=== PATIENT | male | born 2000 | race Caucasian/White ===

== ENCOUNTER → 2020-01-06 | Outpatient (CLI) | payer MEDICAID | LOC: M LAB 07:47 | PROVIDERS: ATTEND Nurse Practitioner Pediatrics | DX: R56.9 Unspecified convulsions (principal) ==

== ENCOUNTER 2020-04-14 15:27 | Emergency (ER) | payer MEDICAID ==
[2020-04-14 18:58] VITALS: BP 135/67
== END 2020-04-14 18:59 | disposition home or self-care (01) ==
LOC: M ED 15:27
DX: F43.0 Acute stress reaction (principal)

== ENCOUNTER 2020-05-31 02:30 | Emergency (ER) | payer MEDICAID ==
[~2020-05-31] VITALS: Ht 190.5 cm; Wt 122.7 kg
--- OUTSIDE RECORDS SUMMARY | 2020-05-31 02:34 | CCD ---
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 TABLETMIRALAX ORAL POWDERDIFFERIN 0.1 % EXTERNAL CREAMAllergies:BIAXIN (Critical)* TOPOMAX (Critical)* RAGWEED (Critical)* SEROQUEL (Critical)* TETANUS TOXIN (Severe)* HAYFEVER (Moderate) Name Value Range Interpretation Code Description Data Marla rce(s) Supporting Document(s) ID Date Data Source [id number] 09/09/2019 01:07:30 PM EDT [facility] Measurements & CalculationsHeight: 76 inches (6 ft. 4 in.) 193.04 cm Weight: 270 pounds 122.73 kg Body Mass Index (BMI): 32.98BMI Interpretation: ObeseBody Surface Area (BSA): 2.52Weight Management Education Done (Nutrition/Physical Activity)Vital SignsTemperature: 97.4F tympanic Pulse Rate: 74 beats/minuteRespiratory Rate: 18 respirations/minuteBlood Pressure: 116/80 left arm sitting automaticO2 Saturation: 97% room airVital Signs performed by: Luli Phipps LPN, September 09, 2019 1:31 PMInitial Intake Information From: patientRoom #: 1Infectious Disease / Travel ScreeningRecent travel for you or any close contacts? NoHave you had any close contact with anyone diagnosed with or under investigation for COVID-19 (coronavirus)? NoFever? NoRespiratory symptoms: cough, cold, congestion, shortness of breath, difficulty breathing? NoLoss of smell? NoLoss of taste? NoDetails: moved from [place] 06/30/2019Smoking, Tobacco, Vaping or Smoke Exposure StatusSmoke Status: never smokerTobacco Use: NoDo you vape? NoPassive Smoke Exposure: NoHealthcare HistorySince your last office visit...Have you been admitted to the hospital? NoHave you been to an emergency room (ER) or urgent care clinic? NoHave you seen another healthcare provider? Yes [facility]? NoIntake performed by: Luli Phipps LPN, September 09, 2019 1:13 PMRate Your HealthIn general, would you say your health is? Very GoodPain AssessmentAre you currently having any pain which... You would like your provider to address? No Affects your activity level? NoDepression Screening - PHQ-2Over the last two weeks, have you... Had little interest or pleasure in doing things? Not at all Been feeling down, depressed, or hopeless? Not at all PHQ-2 Score: 0Anxiety Screening - MACARIO-2Over the last two weeks, have you been... Feeling nervous, anxious, or on edge? Not at all Unable to stop or control worrying? Not at all MACARIO-2 Score: 0PRAPARE Sociodemographic Characteristics Race: White Ethnicity: Not or Preferred Language: EnglishFamily and Home Address: [address] [place] [address] What is your housing situation today? I have housing Are you worried about losing your housing? NoMoney and Resources What is the highest level of school that you have finished? high school graduate Employed? Yes Your current work situation? [employer] Insurance: MedicaidIn the past year, have you or any family members you live with been unable to get any of the following when it was really needed? Denies Insecurity: food, utilities, clothing, attendant child activity, phone, legal services, otherIn the past year, have you had trouble affording costs associated with health insurance (such as deductibles, co-payments, etc.)? NoSocial and Emotional Health How often do you see or talk to people that you care about and feel close to? More than 5 times a week How stressed are you? Not at allAdditional Optional Domains In the past 3 months, have you spent more than 2 nights in a row in a senior living, chcf, senior care center or juvenile correctional facility? No Has lack of transportation kept you from medical appointments or from getting your medications? NoIn the past year, have you had trouble getting any of the following when it was really needed (check all that apply)?noneIn the past year, have you had trouble paying the costs associated with health care or medicine (such as co-payments, costs for services, prices of medicines)? NoHow confident are you that you can control and manage most of your health problems? Not very confident Are you a refugee? No (Country of origin: [facility]) Do you feel physically and emotionally safe where you live? Yes In the past year, have you been afraid of a partner, ex-partner? I have not had a partner in the past yearScreening, Brief Intervention, & Referral to Treatment (SBIRT)Pre-Screening Questions How many times have you have 5 or more drinks in a day? 0How many times have you used an illegal drug or used a prescription medication for a non- medical reason? 0Performed by: Luli Phipps LPN, September 09, 2019 1:16 PMPatient History Medical History:autismgallstonesconstipationacneseizures-last in 2011Surgical History:Family History:adopted-unknown family historySocial/Personal History: Chief Complaintestablish careHistory of Present Illness (HPI)18yo male here to establish care, accompanied by his father Avila and [facility] support aid Caleb.Pt lives at [facility] in [place]. Pt's dad and support aid Caleb states no concerns at this time. Pt moved to [place] from [place] in 06/2019. Father requests [facility] for dandruff.Follows with Tomy Silva at [facility] for behavioral health. Had initial intake on 09/04/2019, states that office is holding off 3-4 months for physical appointment. At this time remains established with [facility], neuro monitors Lamictal levels approximately annually. Has an appt upcoming in 12/2019, family is considering switching to local neuro in [place] versus adult [facility]. HPI performed by: Marco A BERMUDEZ, September 09, 2019 1:36 PMTransitions of Care InboundProblem ReviewProblem List was reviewed and/or updated during this visit.Medication Reconciliation & ReviewMedication List was reviewed and/or updated during this visit, including review of any myfq-xbm-diqbdsq medications, herbal therapies, and/or supplements.Allergy ReviewAllergy List was reviewed and/or updated during this visit.Adult Preventive CareProvider Calculated and Reviewed all Clinical P rotocols for patient today. Labs/Meds/Other Counseling-Nutrition and Physical Activity:BMI Interpretation: Obese (09/09/2019) Counseling: Done (09/09/2019) Physical Activity: Done (09/09/2019)Review of Systems General: Denies loss of appetite, chills, dizziness, fatigue, fever, headache, feeling ill. Eyes: Denies blurring of vision, double vision, eye pain. Ears/Nose/Throat: Denies earache, decreased hearing, nasal congestion, nosebleeds, sore throat, tooth pain, swollen glands. Cardiovascular: Denies chest pain, palpitations, feeling faint, peripheral edema, elevated blood pressure. Respiratory: Denies cough, difficulty breathing, shortness of breath, wheezing. Gastrointestinal: Denies nausea, vomiting, diarrhea, pain or discomfort, abdominal pain. constipation managed by miralaxMusculoskeletal: Denies joint pain, joint swelling, body aches. Skin: dandruff and facial acne, managed by current topicalsNeurologic: Denies weakness, numbness/tingling, feeling faint, tremors. no seizures since 2011Psychiatric: Denies depression, anxiety, hallucinations, paranoia, hearing voices. occasional property damage at the [facility] house, no physicality towards himself or othersPhysical ExamGeneral Appearance: well nourished, well hydrated, no acute distressEyes, External: conjunctivae and lids normal, EOMIExternal Ears: normal, no lesions or deformitiesHearing: grossly intactOtoscopy: canals clear, tympanic membranes intact, no fluid, light reflex intact bilaterallyExternal Nose: normal, no lesions or deformitiesNasal: mucosa, septum, and turbinates normal, nares patentLips/Teeth/Gums: normal dentition, no gingival inflammation, no labial lesionsPharynx: tongue normal, posterior pharynx without erythema or exudate, no thrush/aphthous ulcerNeck: supple, no masses, trachea midline, full range of motion of neckThyroid: no nodules, masses, tenderness, or enlargementRespiratory, Auscultation: clear to auscultation bilaterally; no rales, rhonchi, or wheezesRespiratory, Effort: no intercostal retractions or use of accessory musclesCardiovascular, Auscultation: S1, S2 audible; no murmur, rub, or gallop; RRRPeripheral Circulation: no clubbing, cyanosis, edema, or varicositiesAbdomen: soft, non-tender, no masses, bowel sounds normalGait & Station: normalSkin, Inspection: slight scalf dandruff and facial pustular acneOrientation: oriented to personMood & Affect: no depression, anxiety, or agitation, poor eye contact, playing electronic game throughout visit, history obtained from father primarilyJudgment & Insight: poorCare Management Plan Transitions of CareInboundRate Your HealthIn general, would you say your health is? Very GoodAssessment & Plan Problems:Added: Encounter for general adult medical examination with abnormal findings (ICD-V70.0) (IXC36-L36.01) Assess ment: Instructions: Recommend annual medical appointments. Recommend routine dental and vision care. Recommend influenza vaccines annually. 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 Call when refills are needed.Chronic constipation (ICD-564.09) (XNG22-K55.09) Assessment: Instructions: Continue current Miralax twice to three times daily as needed. Advised patient to let staff know when he had BMs so they can track. No indication for change to regimen or to order imaging at this time. Staff to make an appt for decreased appetite, lack of BMs, abdominal pain.Autistic disorder (ICD-299.00) (WVQ01-W99.0) Assessment: Instructions: Continue per [facility] behavioral health. Release of information form(s) to obtain medical records from your providers(s) has been signed in the office today. Call that office for refills of behavioral health medications.Epilepsy, unspecified, not intractable, without status epilepticus (IRB31-D22.909) Assessment: Instructions: Stable per father since 2011. Continue with [facility] as scheduled, consider staying with [facility] as he is well established with that office and stable. We can place a new referral in the future if you wish as well, please just let us know.Patient Instructions/Care Plan: Encounter for general adult medical examination with abnormal findings: Recommend annual medical appointments. Recommend routine dental and vision care. Recommend influenza vaccines annually. Unable to receive tetanus boosters due to allergy; reviewed risks and indications for evaluation of lacerations and punctures.Consider routine panel of fasting labs in the next few years to screen, given no known family history.Pityriasis capitis: Continue Selsun Blue shampoo, refills sent today.Acne: Continue current topical regimen. Call when refills are needed.Chronic constipation: Continue current Miralax twice to three times daily as needed. Advised patient to let staff know when he had BMs so they can track. No indication for change to regimen or to order imaging at this time. Staff to make an appt for decreased appetite, lack of BMs, abdominal pain.Autistic disorder: Continue per [facility] behavioral health. Release of information form(s) to obtain medical records from your providers(s) has been signed in the office today. Call that office for refills of behavioral health medications.Epilepsy- unspecified- not intractable- without status epilepticus: Stable per father since 2011. Continue with [facility] as scheduled, consider staying with [facility] as he is well established with that office and stable. We can place a new referral in the future if you wish as well, please just let us know. Plan developed in collaboration with patient and/or familyMedications:SELSUN BLUE DRY SCALP 1 % EXTERNAL SHAMPOOZOLOFT 100 MG ORAL TABLETINDERAL LA 60 MG ORAL CAPSULE EXTENDED RELEASE 24 HOURBENZOYL PEROXIDE 2.5 % EXTERNAL GELLAMICTAL XR 100 MG ORAL TABLET EXTENDED RELEASE 24 HOURHYDROXYZINE HCL 50 MG ORAL TABLETMIRALAX ORAL POWDERDIFFERIN 0.1 % EXTERNAL CREAMMedication Changes:Added: DIFFERIN 0.1 % EXTERNAL CREAM-thin layer to face QHSMIRALAX ORAL POWDER-17 grams in 8 oz water up to TIDHYDROXYZINE HCL 50 MG ORAL TABLET-1 tab po QHSLAMICTAL XR 100 MG ORAL TABLET EXTENDED RELEASE 24 HOUR-3 tabs BIDBENZOYL PEROXIDE 2.5 % EXTERNAL GEL-apply generously to cheeks and chin bidINDERAL LA 60 MG ORAL CAPSULE EXTENDED RELEASE 24 HOUR-1 tab po TIDZOLOFT 100 MG ORAL TABLET- 1.5 tab po QAMNew Prescription:SELSUN BLUE DRY SCALP 1 % EXTERNAL SHAMPOO-Apply to scalp daily with bathing, rinse after application Qty: 1[Container] Refills: 11 Method: ElectronicAllergies:BIAXIN (Critical)* TOPOMAX (Critical)* RAGWEED (Critical)* SEROQUEL (Critical)* TETANUS TOXIN (Severe)* HAYFEVER (Moderate)Orders:Preventive, New, (18-39) [[id number]] Follow-Up Return to clinic: in 1 year for preventive care visitAdditional Follow-Up: annual PECVS: Other form of [facility] given to patientMedications:SELSUN BLUE DRY SCALP 1 % EXTERNAL SHAMPOO (PYRITHIONE ZINC) Apply to scalp daily with bathing, rinse after application #1[Container] x 11 Route:EXTERNAL Entered and Authorized by: Marco A BERMUDEZ Method used: Electronically to [facility]* (retail) [address] [place] [address] Note to Pharmacy: Route: EXTERNAL; RxID: [id number] signed by Marco A BERMUDEZ on 09/09/2019 at 2:13 PM Name Value Range Interpretation Code Description Data Marla rce(s) Supporting Document(s) Procedure
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
[2020-05-31] MEDS ORDERED: IBUPROFEN 400 MG TAB PO ONE (05:30)
[2020-05-31 06:00] VITALS: BP 131/82
== END 2020-05-31 06:16 | disposition home or self-care (01) ==
LOC: M ED 02:30
DX: M54.5 Low back pain (principal); F79 Unspecified intellectual disabilities; Z88.1 Allergy status to other antibiotic agents; Z88.7 Allergy status to serum and vaccine; Z88.8 Allergy status to other drugs, medicaments and biological substances; J30.89 Other allergic rhinitis

== ENCOUNTER → 2020-06-02 | Outpatient (REF) | payer MEDICAID ==
[~2020-06-02] MED LIST: AMOX875T2 PO; APAP325T4 PO; AUGM875T28 PO; DIFF0.1G3 TOP; HM I1TAB PO; HYDR50TA70 PO; INDE60CA4 PO; LAMO100T80 PO; MIRA3350 PO; OXYC1TAB23 PO; PANT40TA29 PO; PROP60TA18 PO; SERT-138 PO; SERT50TA29 PO; VALI5TAB PO; [UNRECOGNIZED DRUG - CODE] TOP; [UNRECOGNIZED DRUG - CODE] TOP
[2020-06-02 16:57] LABS: BASO % 0.1 % (0.0-1.0); EOS # 0.1 10^3/uL (0.0-0.5); EOS % 0.5 % (0.0-3.0); HEMATOCRIT 47.8 % (42.0-52.0); HEMOGLOBIN 15.7 g/dl (13.5-17.5); LYMPH # 1.6 10^3/uL (1.5-5.0); LYMPH % 9.5 % (24.0-44.0); MEAN CORPUSCULAR HEMOGLOBIN 28.4 pg (27.0-33.0); MEAN CORPUSCULAR HGB CONC 32.8 g/dl (32.0-36.5); MEAN CORPUSCULAR VOLUME 86.6 fl (80.0-96.0); MONO # 2.1 10^3/uL (0.0-0.8); MONO % 12.3 % (0.0-5.0); NEUTROPHILS # 12.8 10^3/uL (1.5-8.5); NEUTROPHILS % 76.9 % (36.0-66.0); PLATELET COUNT, AUTOMATED 286 10^3/uL (150-450); RED BLOOD COUNT 5.52 10^6/uL (4.30-6.10); WHITE BLOOD COUNT 16.7 10^3/uL (4.0-10.0)
[2020-06-02 17:28] LABS: ALBUMIN 3.8 GM/DL (3.2-5.2); ALT/SGPT 159 U/L (12-78); BILIRUBIN,TOTAL 9.9 MG/DL (0.2-1.0); BLOOD UREA NITROGEN 16 MG/DL (7-18); CARBON DIOXIDE LEVEL 28 MEQ/L (21-32); CHLORIDE LEVEL 101 MEQ/L (98-107); CREATININE FOR GFR 1.05 MG/DL (0.70-1.30); GLOMERULAR FILTRATION RATE > 60.0 (>60); GLUCOSE, FASTING 76 MG/DL (70-100); SODIUM LEVEL 137 MEQ/L (136-145); TOTAL PROTEIN 7.3 GM/DL (6.4-8.2)
== END ==
LOC: M LAB REF 15:37
PROVIDERS: ATTEND Family Medicine Addiction Medicine
DX: R17 Unspecified jaundice (principal)

== ENCOUNTER 2020-06-03 10:43 | Inpatient (IN) | payer MEDICAID ==
[~2020-06-03] VITALS: Ht 188 cm; Wt 128.3 kg
[2020-06-03] MEDS ORDERED: NS 1,000 ML IV ONE (12:15)
[2020-06-03] MEDS ORDERED: KETOROLAC 30 MG/ML 1ML VIAL IV ONE (12:15)
[2020-06-03 12:16] LABS: BASO % 0.2 % (0.0-1.0); EOS # 0.1 10^3/uL (0.0-0.5); EOS % 0.8 % (0.0-3.0); HEMATOCRIT 41.4 % (42.0-52.0); HEMOGLOBIN 14.2 g/dl (13.5-17.5); LYMPH # 1.3 10^3/uL (1.5-5.0); MEAN CORPUSCULAR HEMOGLOBIN 29.3 pg (27.0-33.0); MEAN CORPUSCULAR HGB CONC 34.3 g/dl (32.0-36.5); MEAN CORPUSCULAR VOLUME 85.4 fl (80.0-96.0); MONO # 2.1 10^3/uL (0.0-0.8); NEUTROPHILS # 12.2 10^3/uL (1.5-8.5); NEUTROPHILS % 76.9 % (36.0-66.0); PLATELET COUNT, AUTOMATED 285 10^3/uL (150-450); RED BLOOD COUNT 4.85 10^6/uL (4.30-6.10); WHITE BLOOD COUNT 15.9 10^3/uL (4.0-10.0)
[2020-06-03] MEDS ORDERED: HYDR50TA70 PO (12:32)
[2020-06-03] MEDS ORDERED: MIRA3350 PO (12:32)
[2020-06-03] MEDS ORDERED: LAMO100T80 PO (12:32)
[2020-06-03] MEDS ORDERED: DIFF0.1G3 TOP (12:32)
[2020-06-03] MEDS ORDERED: INDE60CA4 PO (12:32)
[2020-06-03] MEDS ORDERED: SERT-138 PO (12:33)
--- NOTE | 2020-06-03 12:40 | REP ---
INDICATION: ruq pain yellowing of skin. COMPARISON: None. TECHNIQUE: Real-time sonographic evaluation of right upper quadrant performed. FINDINGS: Gallstones fill the gallbladder lumen. There is no evidence of gallbladder wall thickening.. The common bile duct is mildly dilated at 8 mm. There appears to be mild diffuse intrahepatic biliary dilatation. The liver demonstrates homogeneous echotexture with no gross mass. Pancreas cannot be visualized due to overlying bowel gas. The right kidney demonstrates no hydronephrosis, with a normal size of 12.7 cm in length. No free fluid is seen. IMPRESSION: Multiple gallstones fill the lumen of the gallbladder. No gallbladder wall thickening or free fluid. Mild intrahepatic and extrahepatic biliary dilatation. Consider MRCP. <Electronically signed by Hima Jasmine > 06/03/20 1038
[2020-06-03] MEDS ORDERED: VALI5TAB PO (12:41)
[2020-06-03 12:48] LABS: ALBUMIN 3.2 GM/DL (3.2-5.2); ALT/SGPT 113 U/L (12-78); BILIRUBIN,TOTAL 4.7 MG/DL (0.2-1.0); BLOOD UREA NITROGEN 13 MG/DL (7-18); CALCIUM LEVEL 8.5 MG/DL (8.5-10.1); CARBON DIOXIDE LEVEL 26 MEQ/L (21-32); CHLORIDE LEVEL 101 MEQ/L (98-107); CREATININE FOR GFR 0.83 MG/DL (0.70-1.30); GLOMERULAR FILTRATION RATE > 60.0 (>60); GLUCOSE, FASTING 96 MG/DL (70-100); LIPASE 341 U/L (73-393); POTASSIUM SERUM 3.9 MEQ/L (3.5-5.1); SODIUM LEVEL 135 MEQ/L (136-145); TOTAL PROTEIN 6.9 GM/DL (6.4-8.2)
[2020-06-03] MEDS ORDERED: HM I1TAB PO (14:05)
[2020-06-03] MEDS ORDERED: APAP325T4 PO (14:05)
[2020-06-03] MEDS ORDERED: PROP60TA18 PO (14:05)
[2020-06-03] MEDS ORDERED: SERT50TA29 PO (14:05)
[2020-06-03] MEDS ORDERED: [UNRECOGNIZED DRUG - CODE] TOP (14:05)
[2020-06-03] MEDS ORDERED: [UNRECOGNIZED DRUG - CODE] TOP (14:06)
[2020-06-03] MEDS ORDERED: PIPERACILLIN/TAZOBACTAM SOD 3.375 GM in D5W MINI-BAG PLUS 50 ML IV ONE (15:00)
--- NOTE | 2020-06-03 15:36 | HPEPDOC ---
[facility] Medical History & Physical Date of Admission Jun 03, 2020 Date of Service: Jun 03, 2020 History and Physical CHIEF COMPLAINT: abdominal pain HISTORY OF PRESENT ILLNESS: 19 year old male with developmental delay/autism returns to ED for back pain and right upper quadrant abdominal pain. Patient was seen in ED a few days ago for the same, and has been failing outpatient treatment with oral analgesics. He denies chest pain, shortness of breath, headaches, N/V/D. PAST MEDICAL HISTORY: #seizures ALLERGIES: Please see below. REVIEW OF SYSTEMS: Negative except as per HPI. HOME MEDICATIONS: Please see below. PHYSICAL EXAMINATION: VITAL SIGNS: see below General: NAD, lying comfortably in bed HEENT: NC/AT Lungs: CTA B/L Heart: +S1S2, RRR Abd: soft, tender, +BS Ext: no edema LABORATORY DATA: See below. MICROBIOLOGY: Please see below. A/P: 19 year old male resident of [facility] for cholecystitis/choledocholithiasis #gallstone disease - GI c/s pending - discussed with GI assistance appreciated - MRI pending - history of metal shavings? - orbital scan pending as per MRI screen process - clear liquids - NPO after midnight for possible ERCP tomorrow - hyperbilirubinemia improving #+COVID-19 - asymptomatic - infection control precautions #seizures - continue home medications #DVT prophylaxis - mechanical Vital Signs Vital Signs Date Time Temp Pulse Resp B/P (MAP) Pulse Ox O2 Delivery O2 Flow Rate FiO2 06/03/20 14:35 98.9 96 16 132/71 (91) 99 Room Air Laboratory Data Labs 24H Laboratory Tests 2 06/03/20 11:25: Immature Granulocyte % (Auto) 1.1, Neutrophils (%) (Auto) 76.9H, Lymphocytes (%) (Auto) 8.0L, Monocytes (%) (Auto) 13.0H, Eosinophils (%) (Auto) 0.8, Basophils (%) (Auto) 0.2, Neutrophils # (Auto) 12.2H, Lymphocytes # (Auto) 1.3L, Monocytes # (Auto) 2.1H, Eosinophils # (Auto) 0.1, Basophils # (Auto) 0.0, Nucleated Red Blood Cells % (auto) 0.0, Anion Gap 8, Glomerular Filtration Rate > 60.0, Calcium Level 8.5, Total Bilirubin 4.7#H, Direct Bilirubin 3.0H, Aspartate Amino Transf (AST/SGOT) 56H, Alanine Aminotransferase (ALT/SGPT) 113H, Alkaline Phosphatase 160H, Total Protein 6.9, Albumin 3.2, Albumin/Globulin Ratio 0.9, Lipase 341 06/03/20 11:59: Lactic Acid Level 0.9 CBC/BMP Laboratory Tests 06/03/20 11:25 Microbiology Microbiology 06/03/20 Blood Culture, Received Pending Home Medications Scheduled Benzoyl Peroxide (On-The-Spot) 21 Gm Cream..g., 1 APLCT TOP BID APPLY TO CHIN AND CHEEKS Hydroxyzine HCl (Hydroxyzine HCl) 50 Mg Tablet, 50 MG PO QPM Lamotrigine (Lamotrigine) 100 Mg Tablet, 300 MG PO BID Polyethylene Glycol 3350 (Miralax) 119 Gm Powder, 17 GM PO DAILY dilute in 8 ounces of water or juice Propranolol HCl (Propranolol HCl) 60 Mg Tablet, 60 MG PO TID Selenium Sulfide/Aloe Vera (Selsun Blue Moist 1% Shampoo) 207 Ml Shampoo, 1 APLCT TOP DAILY Sertraline HCl (Sertraline HCl) 50 Mg Tablet, 75 MG PO DAILY Scheduled PRN Acetaminophen (Acetaminophen) 325 Mg Tablet, 650 MG PO Q6H PRN for BACK PAIN Ibuprofen (Ibuprofen Ib) 200 Mg Tablet, 400 MG PO TID PRN for PAIN Allergies Coded Allergies: Common Ragweed (Verified Allergy, Mild, 05/31/20) ENVIROMENTAL (Verified Allergy, Mild, 05/31/20) POLLEN (Verified Allergy, Mild, 05/31/20) clarithromycin (Verified Allergy, Mild, 05/31/20) quetiapine (Verified Allergy, Mild, 05/31/20) tetanus toxoid, adsorbed (Verified Allergy, Mild, 05/31/20) topiramate (Verified Allergy, Mild, 05/31/20) A-FIB/CHADSVASC A-FIB History Current/History of A-Fib/PAF?: LIZETH Sorensen MD Jun 03, 2020 15:36
--- OUTSIDE RECORDS SUMMARY | 2020-06-03 15:56 | CCD ---
Author Organization Unknown Address [address] [place] [address] Phone [phone] Care Team Providers Care Talent Acquisition Program Manager Name Role Phone [facility] 229 [phone] Allergies Code Code System Name Reaction Severity Status Onset 20360608 RxNorm Biaxin Active 09/09/2019 Hayfever Active 09/09/2019 Ragweed Active 09/09/2019 17939 RxNorm Seroquel Active 09/09/2019 Tetanus and Diphtheria Toxoids Active [id number] RxNorm Topamax Active Notes: TOPOMAX - Reaction: unable to re gulate body temp | TETANUS TOXIN - Reaction: swollen leg and red Medications Name Status Start Date Stop Date adapalene Active Not available benzoyl peroxide 2.5 % lotion Active No t available hydroxyzine HCl 50 mg tablet Take 1 tablet 4 times a day by oral route. Active Not available Inderal LA 60 mg capsule,extended releas e Take 1 capsule every day by oral route. Active Not available lamotrigine 100 mg tablet Take 1 tablet every day by oral route. Active Not available Miralax Active Not available sertraline 100 mg tablet Take 1 tablet every day by oral route. Active Not available Problems Name Status Onset Date Source Autistic Disorder Active 09/09/2019 History Chronic Constipation Active 09/09/2019 History Acne Active 09/09/2019 History Procedure by Method Active 09/09/2019 History Disorder of Skin of Head Active 09/09/2019 History Neurological Finding Active 09/09/2019 History Impacted Tooth Active 01/28/2020 History Low Back Pain Active 06/02/2020 Procedures None recorded. Results Lab Results None recorded. Past Encounters 06/02/2020 Jaundice; Chronic Constipation; Low Back Pain Garfield Julian MD: [id number] [facility], [facility] [address], [place] [address], Ph. Social History Tobacco Smoking Status Never Smoker Vaccine List None recorded. Plan of Care Reminders Provider Appointments None recorded. Lab None recorded. Referral None recorded. Procedures None recorded. Surgeries None recorded. Imaging None recorded. Vitals 06/02/2020 10:20AM ESTABLISHED [id number] Height Weight BMI Blood Pressure 76 in 235 lbs 28.6 kg/m2 123/78 mm[Hg] 09/09/2019 Height Weight BMI Blood Pressure 76 in 270 lbs 32.98 kg/m2 116/80 mm[Hg]"
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
--- NOTE | 2020-06-03 17:42 | REP ---
INDICATION: hx of metal shavings in eye; MRI clearance. COMPARISON: None. TECHNIQUE: PA and lateral views of the calvarium. FINDINGS: The bony calvarium is intact. No intraorbital or periorbital opaque foreign body is seen. Visualized paranasal sinuses are clear. IMPRESSION: No evidence of opaque foreign body. No contraindication to MR scanning seen. <Electronically signed by William Jaeger > 06/03/20 [id number]
[2020-06-03] MEDS: PIPERACILLIN/TAZOBACTAM SOD 4.5 GM in D5W MINI-BAG PLUS 50 ML IV SCH (20:20)
[2020-06-03] MEDS: KETOROLAC 30 MG/ML 1ML VIAL IV PRN (20:21)
[2020-06-03] MEDS ORDERED: hydrOXYzine 50 MG TAB PO SCH (21:00)
[2020-06-03 23:49] VITALS: BP 137/80
[2020-06-04] MEDS: PROPRANOLOL 20 MG TAB PO SCH ×3 (00:33→16:29)
[2020-06-04] MEDS: lamoTRIgine 100MG TAB PO SCH ×2 (00:34→09:15)
[2020-06-04] MEDS: PIPERACILLIN/TAZOBACTAM SOD 4.5 GM in D5W MINI-BAG PLUS 50 ML IV SCH ×3 (00:34→12:27)
[2020-06-04] MEDS: ACETAMINOPHEN TAB 650MG DOSE (2X325MG) PO PRN ×2 (00:35→09:20)
[2020-06-04 05:18] VITALS: BP 135/69
[2020-06-04] MEDS: KETOROLAC 30 MG/ML 1ML VIAL IV PRN ×2 (05:33→12:53)
[2020-06-04 08:31] LABS: BASO % 0.2 % (0.0-1.0); EOS # 0.2 10^3/uL (0.0-0.5); EOS % 1.8 % (0.0-3.0); HEMATOCRIT 39.9 % (42.0-52.0); LYMPH # 1.4 10^3/uL (1.5-5.0); LYMPH % 10.7 % (24.0-44.0); MEAN CORPUSCULAR HEMOGLOBIN 28.4 pg (27.0-33.0); MEAN CORPUSCULAR HGB CONC 32.6 g/dl (32.0-36.5); MEAN CORPUSCULAR VOLUME 87.3 fl (80.0-96.0); MONO # 1.7 10^3/uL (0.0-0.8); MONO % 12.9 % (0.0-5.0); NEUTROPHILS # 9.5 10^3/uL (1.5-8.5); NEUTROPHILS % 73.6 % (36.0-66.0); PLATELET COUNT, AUTOMATED 262 10^3/uL (150-450); RED BLOOD COUNT 4.57 10^6/uL (4.30-6.10); WHITE BLOOD COUNT 12.9 10^3/uL (4.0-10.0)
--- NOTE | 2020-06-04 08:52 | REP ---
INDICATION: gallstones, dialtion of ducts. Repeat dictation. Preliminary report is provided at the time of the exam by neto OVIEDO. COMPARISON: Right upper quadrant sonography from 03 June 2020.. TECHNIQUE: MRCP protocol. T2 weighted axial and coronal images are obtained. MRCP acquisition is performed in maximum intensity projection images are generated and reviewed. FINDINGS: There is a tiny sliver of right and left pleural fluid. There is minimal fluid in the pericolic gutters.. There is diffuse swelling and edema in and adjacent to the pancreas question pancreatitis. The gallbladder is filled with tiny gallstones. No intrahepatic ductal dilation is seen. The common bile duct does not appear to be dilated by MRCP images measuring 5 mm in greatest diameter. No focal liver lesion or splenic lesion is seen. The spleen is mildly enlarged measuring up to 16 cm in craniocaudal span. No filling defect is seen in the common bile duct. IMPRESSION: No evidence of biliary ductal dilation. Trace ascites and pleural effusions. Evidence of acute pancreatitis. No evidence of choledocholithiasis. The gallbladder however is filled with tiny calculi. It is not dilated. <Electronically signed by William Jaeger > 06/04/20 [id number]
[2020-06-04] MEDS ORDERED: SERTRALINE HCL 25 MG TABLET PO SCH (09:00)
[2020-06-04 09:04] LABS: ALBUMIN 2.9 GM/DL (3.2-5.2); ALT/SGPT 77 U/L (12-78); BILIRUBIN,TOTAL 2.7 MG/DL (0.2-1.0); BLOOD UREA NITROGEN 15 MG/DL (7-18); CALCIUM LEVEL 8.6 MG/DL (8.5-10.1); CARBON DIOXIDE LEVEL 29 MEQ/L (21-32); CHLORIDE LEVEL 103 MEQ/L (98-107); CREATININE FOR GFR 0.81 MG/DL (0.70-1.30); GLOMERULAR FILTRATION RATE > 60.0 (>60); GLUCOSE, FASTING 82 MG/DL (70-100); SODIUM LEVEL 140 MEQ/L (136-145); TOTAL PROTEIN 6.4 GM/DL (6.4-8.2)
--- NOTE | 2020-06-04 11:56 | DS.PDOC ---
Discharge Summary General Date of Admission Jun 03, 2020 at 15:33 Date of Discharge 06/04/20 Discharge Summary PROCEDURES PERFORMED DURING STAY: [None]. ADMITTING DIAGNOSES: gallstone disease, cholelithiasis covid-19 infection seizures DISCHARGE DIAGNOSES: gallstone disease, cholelithiasis covid-19 infection seizures COMPLICATIONS/CHIEF COMPLAINT: Cholelithiasis. HISTORY OF PRESENT ILLNESS: 19 year old male with developmental delay/autism returns to ED for back pain and right upper quadrant abdominal pain. Patient was seen in ED a few days ago for the same, and has been failing outpatient treatment with oral analgesics. He denies chest pain, shortness of breath, headaches, N/V/D. HOSPITAL COURSE: Patient was evaluated by GI specialist, Dr. Quintana. MRCP did not show biliary ductal dilatation, no evidence of choledocholithiasis, and no gallbladder dilation. he was cleared for DC by Dr. Quintana to [facility], with referral to general surgery for workup of biliary colic. On admission he did test posit jan for COVID-19 but has remained asymptomatic and saturatin on 98% on RA. DISCHARGE MEDICATIONS: Please see below. ALLERGIES: Please see below. PHYSICAL EXAMINATION ON DISCHARGE: VITAL SIGNS: please see below General: NAD, comfortable HEENT: PERRLA, EOMI, sclerae clear Neck: supple, normal ROM, no JVD Respiratory: lungs CTAB, no wheeze, no rales, no crackles CVS: RRR, normal S1, S2, no murmurs Abdo: soft, no masses, no hepatosplenomegaly, BS+, no rebound tenderness Extremities: no edema, pulses 2+ MSK: no joint deformities, normal ROM Neuro: no focal neuro deficits, moving all 4 extremities, CN2-12 intact. Strength 5/5 in all 4 extremities. No nystagmus. LABORATORY DATA: Please see below. IMAGING: Gallbladder US (06/03/20): Multiple gallstones fill the lumen of the gallbladder. No gallbladder wall thickening or free fluid. Mild intrahepatic and extrahepatic biliary dilatation. Consider MRCP. Skull XR (06/03/20): No evidence of opaque foreign body. No contraindication to MR scanning seen. MRCP (06/04/20): No evidence of biliary ductal dilation. Trace ascites and pleural effusions. Evidence of acute pancreatitis. No evidence of choledocholithiasis. The gallbladder however is filled with tiny calculi. It is not dilated. PROGNOSIS: good ACTIVITY:As tolerated DIET: as tolerated DISCHARGE PLAN: DC to [facility]. Referral to general surgery for biliary colic placed on DC as recommended by Dr. Quintana. DISPOSITION: [facility] DISCHARGE INSTRUCTIONS: . Please follow-up with your primary care doctor within 3-5 days . Please follow-up with general surgery within 1-2 weeks - referral for biliary colic . Please taking medications as prescribed. . If you develop bleeding, chest pain, shortness of breath, seizures, nausea, fevers, or otherwise worsening of your symptoms, please call 911 or return to t he nearest emergency room DISCHARGE CONDITION: Stable TIME SPENT ON DISCHARGE: 25 minutes Vital Signs/I&Os Vital Signs Date Time Temp Pulse Resp B/P (MAP) Pulse Ox O2 Delivery O2 Flow Rate FiO2 06/04/20 09:15 94 135/69 06/04/20 05:18 98.6 20 98 Room Air I&O- Last 24 Hours up to 6 AM 06/04/20 06:00 Intake Total 1100 ml Output Total 0 ml Balance 1100 ml Laboratory Data Labs 24H Laboratory Tests 2 06/03/20 11:59: Lactic Acid Level 0.9 06/03/20 15:26: Coronavirus (COVID-19)(PCR) POSITIVEA 06/04/20 08:02: Immature Granulocyte % (Auto) 0.8, Neutrophils (%) (Auto) 73.6H, Lymphocytes (%) (Auto) 10.7L, Monocytes (%) (Auto) 12.9H, Eosinophils (%) (Auto) 1.8, Basophils (%) (Auto) 0.2, Neutrophils # (Auto) 9.5H, Lymphocytes # (Auto) 1.4L, Monocytes # (Auto) 1.7H, Eosinophils # (Auto) 0.2, Basophils # (Auto) 0.0, Nucleated Red Blood Cells % (auto) 0.0, Anion Gap 8, Glomerular Filtration Rate > 60.0, Calcium Level 8.6, Total Bilirubin 2.7H, Aspartate Amino Transf (AST/SGOT) 27, Alanine Aminotransferase (ALT/SGPT) 77, Alkaline Phosphatase 139H, Total Protein 6.4, Albumin 2.9L, Albumin/Globulin Ratio 0.8 CBC/BMP Laboratory Tests 06/04/20 08:02 Microbiology Microbiology 06/03/20 Blood Culture, Received Pending 06/03/20 Blood Culture, Received Pending Discharge Medications Scheduled Benzoyl Peroxide (On-The-Spot) 21 Gm Cream..g., 1 APLCT TOP BID, (Reported) APPLY TO CHIN AND CHEEKS Hydroxyzine HCl (Hydroxyzine HCl) 50 Mg Tablet, 50 MG PO QPM, (Reported) Lamotrigine (Lamotrigine) 100 Mg Tablet, 300 MG PO BID, (Reported) Polyethylene Glycol 3350 (Miralax) 119 Gm Powder, 17 GM PO DAILY, (Reported) dilute in 8 ounces of water or juice Propranolol HCl (Propranolol HCl) 60 Mg Tablet, 60 MG PO TID, (Reported) Selenium Sulfide/Aloe Vera (Selsun Blue Moist 1% Shampoo) 207 Ml Shampoo, 1 APLCT TOP DAILY, (Reported) Sertraline HCl (Sertraline HCl) 50 Mg Tablet, 75 MG PO DAILY, (Reported) Scheduled PRN Acetaminophen (Acetaminophen) 325 Mg Tablet, 650 MG PO Q6H PRN for BACK PAIN, (Reported) Ibuprofen (Ibuprofen Ib) 200 Mg Tablet, 400 MG PO TID PRN for PAIN, (Reported) Allergies Coded Allergies: Common Ragweed (Verified Allergy, Mild, 05/31/20) ENVIROMENTAL (Verified Allergy, Mild, 05/31/20) POLLEN (Verified Allergy, Mild, 05/31/20) clarithromycin (Verified Allergy, Mild, 05/31/20) quetiapine (Verified Allergy, Mild, 05/31/20) tetanus toxoid, adsorbed (Verified Allergy, Mild, 05/31/20) topiramate (Verified Allergy, Mild, 05/31/20) TERRA TRAORE MD Jun 04, 2020 11:56
[2020-06-04] MEDS ORDERED: AUGM875T28 PO (12:05)
[2020-06-04 12:29] LABS: LIPASE 281 U/L (73-393)
[2020-06-04] MEDS ORDERED: OXYC1TAB23 PO (14:05)
[2020-06-04 15:55] VITALS: BP 127/73
[2020-06-04 16:29] VITALS: BP 127/73
[2020-06-05] MEDS ORDERED: OXYC1TAB23 PO (14:00)
[2020-06-05] MEDS ORDERED: AMOX875T2 PO (14:00)
== END 2020-06-04 17:15 | disposition home or self-care (01) ==
LOC: M ED 10:43 → M ED INP 15:33 → M 4MAIN 23:34
PROVIDERS: ADMIT Internal Medicine; ATTEND Internal Medicine
DX: K80.20 Calculus of gallbladder without cholecystitis without obstruction (principal); U07.1 COVID-19; R56.9 Unspecified convulsions; F84.0 Autistic disorder; Z79.899 Other long term (current) drug therapy; Z88.8 Allergy status to other drugs, medicaments and biological substances; Z88.7 Allergy status to serum and vaccine

== ENCOUNTER 2020-06-05 10:59 | Inpatient (IN) | payer MEDICAID ==
[~2020-06-05] VITALS: Ht 188 cm; Wt 126.0 kg
[~2020-06-05 10:59] MED LIST changes: -AMOX875T2 PO; -PANT40TA29 PO
[2020-06-05] MEDS ORDERED: NS 1,000 ML IV ONE ×2 (11:45→13:45)
[2020-06-05] MEDS ORDERED: MORPHINE 2 MG/ML 1ML VIAL (J2270) IV ONE (11:45)
--- NOTE | 2020-06-05 12:07 | REP ---
INDICATION: abdl pain. COMPARISON: None. TECHNIQUE: SINGLE PORTABLE AP VIEW OF THE CHEST WAS PERFORMED. FINDINGS: THERE IS NO ACUTE INFILTRATE OR PULMONARY EDEMA. LUNGS ARE CLEAR. HEART IS NOT SIGNIFICANTLY ENLARGED. MEDIASTINAL SILHOUETTE IS UNREMARKABLE. THE VISUALIZED OSSEOUS STRUCTURES ARE INTACT. IMPRESSION: NO ACUTE PULMONARY DISEASE. <Electronically signed by Hima Jasmine > 06/05/20 [id number]
[2020-06-05 12:33] LABS: BASO # 0.1 10^3/uL (0.0-0.2); BASO % 0.4 % (0.0-1.0); EOS # 0.1 10^3/uL (0.0-0.5); EOS % 0.6 % (0.0-3.0); HEMATOCRIT 39.2 % (42.0-52.0); HEMOGLOBIN 13.1 g/dl (13.5-17.5); LYMPH # 1.2 10^3/uL (1.5-5.0); LYMPH % 8.7 % (24.0-44.0); MEAN CORPUSCULAR HEMOGLOBIN 28.9 pg (27.0-33.0); MEAN CORPUSCULAR HGB CONC 33.4 g/dl (32.0-36.5); MEAN CORPUSCULAR VOLUME 86.5 fl (80.0-96.0); MONO # 1.7 10^3/uL (0.0-0.8); MONO % 11.9 % (0.0-5.0); NEUTROPHILS % 77.8 % (36.0-66.0); PLATELET COUNT, AUTOMATED 316 10^3/uL (150-450); RED BLOOD COUNT 4.53 10^6/uL (4.30-6.10); WHITE BLOOD COUNT 14.1 10^3/uL (4.0-10.0)
[2020-06-05] MEDS ORDERED: ISOVUE-370 76% 100ML VIAL As Ordered ONE (12:33)
[2020-06-05 12:52] LABS: ALBUMIN 2.8 GM/DL (3.2-5.2); BILIRUBIN,DIRECT 5.4 MG/DL (0.0-0.2); TOTAL PROTEIN 6.5 GM/DL (6.4-8.2)
--- NOTE | 2020-06-05 13:42 | REP ---
INDICATION: abdominal pain COMPARISON: MRI 06/03/2020. TECHNIQUE: CT Scan of the abdomen and pelvis was performed with intravenous administration of 100 cc of Isovue 370, without oral contrast. Sagittal and coronal reconstruction images are performed. FINDINGS: Lung bases: There are small bilateral pleural effusions, greater on the left. There is adjacent mild patchy atelectasis or infiltrate in each lung base. Liver: There is [id number] intrahepatic biliary dilatation. The common bile duct is dilated up to 10 mm. Gallbladder: The gallstones which are visualized by ultrasound and MRI are not visualized on the CT exam. Spleen: Normal. Adrenals: Normal. Pancreas: There is diffuse ill-defined hypodensity throughout the pancreas with moderate degree of peripancreatic inflammation consistent with pancreatitis. No pseudocyst is seen. Kidneys: There is no hydronephrosis. Punctate calculus is seen in the lower right renal collecting system. Small and large bowel: Unremarkable. Free fluid: None. Abdominal aorta: No aneurysm or dissection. Adenopathy: None. Appendix: Not inflamed. Osseous structures: Unremarkable. Pelvis: No mass. IMPRESSION: Small bilateral pleural effusions left greater than right. Adjacent patchy bibasilar atelectasis/infiltrate. [id number] intrahepatic and extrahepatic biliary dilatation. The gallstones which are visualized by ultrasound and MRI are not visualized by CT. Findings consistent with pancreatitis. No pseudocyst. <Electronically signed by Hima Jasmine > 06/05/20 [id number]
[2020-06-05] MEDS ORDERED: ONDANSETRON 4MG/2ML VIAL IV PRN ×2 (13:45→17:15)
--- NOTE | 2020-06-05 13:48 | HPEPDOC ---
General Date of Admission 06/05/20 Date of Service: Jun 05, 2020 Chief Complaint The patient is a 19-year-old male admitted with a reason for visit of Lower Back Pain. Source: Patient Exam Limitations: No limitations Timing/Duration: 24 hours Severity: Moderate History of Present Illness Patient is 19 years old male with past medical history of developmental delay/autism presented hospital with left upper quadrant pain. Patient was discharged from the hospital 1 day ago, he was diagnosed with multiple gallstones in the gallbladder, MRCP showed evidence of pancreatitis but no evidence of biliary ductal dilatation. Today patient developed severe left upper quadrant pain. In ER patient was found to have white blood count 14.1, lipase 2500, total bilirubin 6, direct bilirubin 5.4. CT abdomen and pelvis showed evidence of pancreatitis. GI team will proceed with ERCP today Home Medications Scheduled Amoxicillin/Potassium Clav (Augmentin 875-125 Tablet) 1 Each Tablet, 1 TAB PO BID Benzoyl Peroxide (On-The-Spot) 21 Gm Cream..g., 1 APLCT TOP BID, (Reported) APPLY TO CHIN AND CHEEKS Hydroxyzine HCl (Hydroxyzine HCl) 50 Mg Tablet, 50 MG PO QPM, (Reported) Lamotrigine (Lamotrigine) 100 Mg Tablet, 300 MG PO BID, (Reported) Polyethylene Glycol 3350 (Miralax) 119 Gm Powder, 17 GM PO DAILY, (Reported) dilute in 8 ounces of water or juice Propranolol HCl (Propranolol HCl) 60 Mg Tablet, 60 MG PO TID, (Reported) Selenium Sulfide/Aloe Vera (Selsun Blue Moist 1% Shampoo) 207 Ml Shampoo, 1 APLCT TOP DAILY, (Reported) Sertraline HCl (Sertraline HCl) 50 Mg Tablet, 75 MG PO DAILY, (Reported) Scheduled PRN Acetaminophen (Acetaminophen) 325 Mg Tablet, 650 MG PO Q6H PRN for BACK PAIN, (Reported) Ibuprofen (Ibuprofen Ib) 200 Mg Tablet, 400 MG PO TID PRN for PAIN, (Reported) Oxycodone HCl/Acetaminophen (Oxycodone-Acetaminophen 5-325) 1 Each Tablet, 1 TAB PO TIDP PRN for pain Allergies Coded Allergies: Common Ragweed (Verified Allergy, Mild, 05/31/20) ENVIROMENTAL (Verified Allergy, Mild, 05/31/20) POLLEN (Verified Allergy, Mild, 05/31/20) clarithromycin (Verified Allergy, Mild, 05/31/20) quetiapine (Verified Allergy, Mild, 05/31/20) tetanus toxoid, adsorbed (Verified Allergy, Mild, 05/31/20) topiramate (Verified Allergy, Mild, 05/31/20) Past Medical History Medical History developmental delay/autism Family History I personally reviewed family history and found not pertinent Social History * Smoker: Denies Alcohol: Denies Drugs: denies A-FIB/CHADSVASC A-FIB History Current/History of A-Fib/PAF?: No Current PO Anticoag Therapy: No Review of Systems Constitutional: Denies: Chills, Fever Eyes: Denies: Pain ENT: Denies: Head Aches Skin: Denies: Rash, Lesions Pulmonary: Denies: Dyspnea, Cough Cardiovascular: Denies: Chest Pain Gastrointestinal: Reports: Nausea, Abdominal Pain Genitourinary: Denies: Dysuria Hematologic: Denies: Bruising Endocrine: Denies: Polydipsia Musculoskeletal: Denies: Neck Pain Neurological: Denies: Weakness Psych: Reports: Anxiety Physical Examination General Exam: Positive: Alert, Cooperative Eye Exam: Positive: PERRLA ENT Exam: Positive: Atraumatic Neck Exam: Positive: Supple; Negative: JVD Chest Exam: Positive: Clear to auscultation Heart Exam: Positive: Rate Normal Telemetry: Positive: No significant arrhythmia Abdomen Exam: Positive: BS Hypoactive Extremity Exam: Negative: Clubbing Skin Exam: Positive: Nl turgor and temperature Neuro Exam: Positive: Strength at 5/5 X4 ext Psych Exam: Positive: Anxiety Vital Signs Vital Signs Date Time Temp Pulse Resp B/P (MAP) Pulse Ox O2 Delivery O2 Flow Rate FiO2 06/05/20 12:12 18 06/05/20 11:16 99.5 98 159/85 (109) 96 Room Air Laboratory Data Labs 24H Laboratory Tests 2 06/05/20 11:35: Immature Granulocyte % (Auto) 0.6, Neutrophils (%) (Auto) 77.8H, Lymphocytes (%) (Auto) 8.7L, Monocytes (%) (Auto) 11.9H, Eosinophils (%) (Auto) 0.6, Basophils (%) (Auto) 0.4, Neutrophils # (Auto) 11.0H, Lymphocytes # (Auto) 1.2L, Monocytes # (Auto) 1.7H, Eosinophils # (Auto) 0.1, Basophils # (Auto) 0.1, Nucleated Red Blood Cells % (auto) 0.0, Lactic Acid Level 0.9, Total Bilirubin 6.0#H, Direct Bilirubin 5.4H, Aspartate Amino Transf (AST/SGOT) 61H, Alanine Aminotransferase (ALT/SGPT) 75, Alkaline Phosphatase 193H, Total Protein 6.5, Albumin 2.8L, Albumin/Globulin Ratio 0.8, Amylase Level 373H, Lipase 2511H 06/05/20 12:01: POC Glucose (Misc Panel) 105, POC Sodium (Misc Panel) 139, POC Potassium (Misc Panel) 3.4L, POC Chloride (Misc Panel) 101, POC Total CO2 (Misc Panel) 25.0, POC Blood Urea Nitrogen (Misc Panel 17, POC Ionized Calcium (Misc Panel) 4.5, POC Creatinine (Misc Panel) 1.0, POC Hematocrit (Misc Panel) 40.0 CBC/BMP Laboratory Tests 06/05/20 11:35 Assessment/Plan Patient is 19 years old male with past medical history of developmental delay/autism presented hospital with left upper quadrant pain. Patient was discharged from the hospital 1 day ago, he was diagnosed with multiple gallstones in the gallbladder, MRCP showed evidence of pancreatitis but no evidence of biliary ductal dilatation. Today patient developed severe left upper quadrant pain. In ER patient was found to have white blood count 14.1, lipase 2500, total bilirubin 6, direct bilirubin 5.4. CT abdomen and pelvis showed ignacio dence of pancreatitis. GI team will proceed with ERCP today Problems (1) Gallstone pancreatitis Status: Acute Problem Text: IV fluid, pain management Dr. Ng will proceed with ERCP Zofran IV and by mouth Zosyn IV (2) COVID-19 Status: Acute Problem Text: Patient asymptomatic for now Continue to monitor Plan / VTE VTE Prophylaxis Ordered?: Yes SUSANNAH ALCALA DO Jun 05, 2020 13:48
[2020-06-05] MEDS ORDERED: AMOX875T2 PO (14:00)
[2020-06-05] MEDS ORDERED: OXYC1TAB23 PO (14:00)
[2020-06-05] MEDS ORDERED: PIPERACILLIN/TAZOBACTAM SOD 3.375 GM in D5W MINI-BAG PLUS 50 ML IV ONE (14:00)
[2020-06-05] MEDS ORDERED: MIDAZOLAM INJ 2MG/2ML VIAL (J2250 PER 1MG) As Ordered ONE (15:40)
[2020-06-05] MEDS ORDERED: propofoL 200 MG/20 ML VIAL As Ordered ONE (15:40)
[2020-06-05] MEDS ORDERED: LIDOCAINE 2% 100MG/5ML SDV (FOR ANES.) As Ordered ONE (15:40)
[2020-06-05] MEDS ORDERED: ONDANSETRON 4MG/2ML VIAL As Ordered ONE (15:40)
[2020-06-05] MEDS ORDERED: fentaNYL 100 MCG/2 ML INJECTION (J3010) As Ordered ONE (15:40)
[2020-06-05] MEDS ORDERED: dexameTHASONE 4 MG/ML 1ML VIAL (J1100 PER 1MG) As Ordered ONE (15:41)
[2020-06-05] MEDS ORDERED: SUGAMMADEX SODIUM 500 MG/5 ML VIAL (BRIDION) As Ordered ONE (15:41)
[2020-06-05] MEDS ORDERED: ROCURONIUM BROMIDE 50 MG/5 ML VIAL As Ordered ONE (15:44)
[2020-06-05] MEDS: ISOVUE-300 61% 50ML VIAL As Ordered ONE ×2 (16:08→16:12)
--- NOTE | 2020-06-05 16:51 | ROOR ---
Patient Name: Jean Carlos Adams Procedure Date: 06/05/2020 2:42 PM Date of : 2000 Age: 19 Room: Main OR Gender: Male Note Status: Finalized Procedure: ERCP Indications: Abdominal pain of suspected biliary or pancreatic origin, Gallstone pancreatitis, Suspected bile duct stone(s), Jaundice, Gallstone associated acute pancreatitis, (Pt in hospital with biliary colic/jaundice last week. Symptoms/jaundice resolved, MRCP confirms stone has passed. Pt discharged home yesterday, but had recurrence of pain. Pt readmitted today with recurrent bout of biliary colic. on this occasion also has gallstone pancreatitis.) Providers: Delmar QUINTANA MD Referring MD: 2. Inpatient 2. Inpatient Requesting Provider: Medicines: General Anesthesia Complications: No immediate complications. Procedure: Pre-Anesthesia Assessment: - The heart rate, respiratory rate, oxygen saturations, blood pressure, adequacy of pulmonary ventilation, and response to care were monitored throughout the procedure. The Duodenoscope was introduced through the mouth, and advanced to the duodenum and used to inject contrast into the bile duct. The ERCP was accomplished without difficulty. The patient tolerated the procedure well. Findings: The pharmaceutical plant operator film was normal. The esophagus was successfully intubated under direct vision. The scope was advanced to a normal major papilla in the descending duodenum without detailed examination of the pharynx, larynx and associated structures, and upper GI tract. The upper GI tract was grossly normal. A wire was passed into the biliary tree. The bile duct was then deeply cannulated over the guidewire. Contrast was injected. I personally interpreted the bile duct images. Ductal flow of contrast was adequate. Image quality was adequate. Opacification of the entire biliary tree except for the gallbladder was successful. The maximum diameter of the ducts was 10 mm. The main bile duct was mildly dilated. The largest diameter was 10 mm. The middle third of the main bile duct contained filling defect(s) thought to be sludge. One 10 mm by 4 cm covered metal stent was placed into the common bile duct. Bile and sludge flowed through the stent. The stent was in good position. The scope was passed under direct vision through the upper GI tract. Three non-bleeding superficial duodenal ulcers with no stigmata of bleeding were found in the first portion of the duodenum and in the second portion of the duodenum. The largest lesion was 6 mm in largest dimension. The upper GI tract was traversed under direct vision without detailed examination. Three non-bleeding superficial gastric ulcers with no stigmata of bleeding were found in the gastric body and in the gastric antrum. The largest lesion was 7 mm in largest dimension. Gastric mucosal were biopsied with a cold forceps for Helicobacter pylori testing. Impression: - The examination was suspicious for sludge. - The entire main bile duct was mildly dilated. - One covered metal wall stent ([id number])was placed into the common bile duct. - Shallow non-bleeding duodenal ulcers with no stigmata of bleeding. - Shallow non-bleeding gastric ulcers with no stigmata of bleeding. - Biopsy was performed Gastric mucosal. Recommendation: - Outpatient surgical consultation for cholecystectomy at appointment to be scheduled. - Due to recurrent episodes of choledocholithiasis, will wait to repeat ERCP/stent removal until after cholecystectomy completed. - Await biopsies/path. - Return to my office in 8 weeks. Procedure Code(s): --- Professional --- 67908, Endoscopic retrograde cholangiopancreatography (ERCP); with placement of endoscopic stent into biliary or pancreatic duct, including pre- and post-dilation and guide wire passage, when performed, including sphincterotomy, when performed, each stent [id number], 59, Endoscopic retrograde cholangiopancreatography (ERCP); with biopsy, single or multiple Diagnosis Code(s): --- Professional --- K83.8, Other specified diseases of biliary tract K85.10, Biliary acute pancreatitis without necrosis or infection R17, Unspecified jaundice R10.9, Unspecified abdominal pain K25.9, Gastric ulcer, unspecified as acute or chronic, without hemorrhage or perforation K26.9, Duodenal ulcer, unspecified as acute or chronic, without hemorrhage or perforation CPT copyright 2019 [employer]. All rights reserved. The codes documented in this report are preliminary and upon small battery plate assembler review may be revised to meet current compliance requirements. Delmar Quintana MD Delmar QUINTANA MD 06/05/2020 4:51:08 PM Electronically signed by Delmar QUINTANA MD Number of Addenda: 0 Note Initiated On: 06/05/2020 2:42 PM Estimated Blood Loss: Estimated blood loss: none.
[2020-06-05] MEDS ORDERED: oxyCODONE 5MG TAB PO PRN (17:15)
[2020-06-05] MEDS ORDERED: METOCLOPRAMIDE INJ 10MG/2ML VIAL (J2765 PER 1) IV PRN (17:15)
[2020-06-05] MEDS ORDERED: fentaNYL 100 MCG/2 ML INJECTION (J3010) IV PRN (17:15)
[2020-06-05] MEDS ORDERED: LR 1,000 ML IV SCH (17:15)
[2020-06-05 18:04] VITALS: BP 131/77
[2020-06-05] MEDS: LR 1,000 ML IV SCH ×2 (18:30→21:44)
[2020-06-05 20:03] VITALS: BP 134/84
[2020-06-05 21:00] VITALS: BP 137/82
[2020-06-05] MEDS ORDERED: ENOXAPARIN 40MG/0.4ML SYRINGE (J1650 PER 10MG) SC SCH (21:00)
[2020-06-05] MEDS: PIPERACILLIN/TAZOBACTAM SOD 3.375 GM in D5W MINI-BAG PLUS 50 ML IV SCH (21:47)
[2020-06-05] MEDS: PANTOPRAZOLE 40MG TAB (PROTONIX) PO SCH (21:47)
[2020-06-05 22:00] VITALS: BP 129/88
[2020-06-05] MEDS: ACETAMINOPHEN TAB 650MG DOSE (2X325MG) PO PRN (23:26)
[2020-06-06] VITALS: BP 132/74
[2020-06-06] MEDS: LR 1,000 ML IV SCH ×3 (02:30→11:09)
[2020-06-06 04:19] VITALS: BP 127/73
[2020-06-06] MEDS: ACETAMINOPHEN TAB 650MG DOSE (2X325MG) PO PRN ×2 (06:19→09:17)
[2020-06-06] MEDS: PIPERACILLIN/TAZOBACTAM SOD 3.375 GM in D5W MINI-BAG PLUS 50 ML IV SCH (06:19)
[2020-06-06 08:39] LABS: HEMATOCRIT 36.3 % (42.0-52.0); HEMOGLOBIN 11.9 g/dl (13.5-17.5); MEAN CORPUSCULAR HEMOGLOBIN 28.3 pg (27.0-33.0); MEAN CORPUSCULAR HGB CONC 32.8 g/dl (32.0-36.5); MEAN CORPUSCULAR VOLUME 86.4 fl (80.0-96.0); PLATELET COUNT, AUTOMATED 330 10^3/uL (150-450); WHITE BLOOD COUNT 12.2 10^3/uL (4.0-10.0)
[2020-06-06] MEDS: PANTOPRAZOLE 40MG TAB (PROTONIX) PO SCH (09:10)
[2020-06-06 09:17] LABS: ALBUMIN 2.4 GM/DL (3.2-5.2); ALT/SGPT 76 U/L (12-78); BILIRUBIN,TOTAL 2.6 MG/DL (0.2-1.0); BLOOD UREA NITROGEN 14 MG/DL (7-18); CARBON DIOXIDE LEVEL 28 MEQ/L (21-32); CHLORIDE LEVEL 105 MEQ/L (98-107); GLOMERULAR FILTRATION RATE > 60.0 (>60); GLUCOSE, FASTING 108 MG/DL (70-100); MAGNESIUM LEVEL 2.2 MG/DL (1.8-2.4); POTASSIUM SERUM 3.2 MEQ/L (3.5-5.1); SODIUM LEVEL 140 MEQ/L (136-145); TOTAL PROTEIN 6.9 GM/DL (6.4-8.2)
[2020-06-06] MEDS ORDERED: PANT40TA29 PO (12:34)
--- NOTE | 2020-06-06 12:40 | DS.PDOC ---
Discharge Summary General Date of Admission Jun 05, 2020 at 13:34 Date of Discharge 06/06/20 Discharge Summary PROCEDURES PERFORMED DURING STAY: Endoscopic retrograde cholangiopancreatography (ERCP); with placement of endoscopic stent into biliary or pancreatic duct, including pre- and post-dilation and guide wire passage, when performed, including sphincterotomy, when performed, each stent [id number], 59, Endoscopic retrograde cholangiopancreatography (ERCP); with biopsy, single or multiple ADMITTING DIAGNOSES: Gallstone pancreatitis COVID-19 DISCHARGE DIAGNOSES: COVID-19 Biliary acute pancreatitis without necrosis or infection Gastric ulcer, unspecified as acute or chronic, without hemorrhage or perforation K26.9, Duodenal ulcer, unspecified as acute or chronic, without hemorrhage or perforation COMPLICATIONS/CHIEF COMPLAINT: Covid-19, Gallstone Pancreatitis. HISTORY OF PRESENT ILLNESS: Patient is 19 years old male with past medical history of developmental delay/autism presented hospital with left upper quadrant pain. Patient was discharged from the hospital 1 day ago, he was diagnosed with multiple gallstones in the gallbladder, MRCP showed evidence of pancreatitis but no evidence of biliary ductal dilatation. Today patient developed severe left upper quadrant pain. In ER patient was found to have white blood count 14.1, lipase 2500, total bilirubin 6, direct bilirubin 5.4. CT abdomen and pelvis showed evidence of pancreatitis HOSPITAL COURSE: During hospital stay following showed addressed. Patient received IV fluid MRCP was done and showed; The entire main bile duct was mildly dilated. - One covered metal wall stent ([id number])was placed into the common bile duct. - Shallow non-bleeding duodenal ulcers with no stigmata of bleeding. - Shallow non-bleeding gastric ulcers with no stigmata of bleeding. - Biopsy was performed Gastric mucosal. DISCHARGE MEDICATIONS: Please see below. ALLERGIES: Please see below. PHYSICAL EXAMINATION ON DISCHARGE: VITAL SIGNS: Please see below. GENERAL APPEARANCE: NAD HEENT: no scleral icterus, no JVD, EOMI CARDIOVASCULAR: S1S2 LUNGS: CTA ABDOMEN: soft & not tender w palpitation MUSCULOSKELETAL: no cyanosis, no swelling INTEGUMENT: no generalized pallor NEUROLOGICAL: cranial nerve function from 2-12 intact intact, follows commands, speech not dysarthric LABORATORY DATA: Please see below. PROGNOSIS: Fair ACTIVITY: [As tolerated]. DIET: Regular DISCHARGE PLAN: Home DISCHARGE INSTRUCTIONS: Outpatient surgical consultation for cholecystectomy at appointment to be scheduled. - Due to recurrent episodes of choledocholithiasis, will wait to repeat ERCP/stent removal until after cholecystectomy completed. - Await biopsies/path. - Return to GI office in 8 weeks ITEMS TO FOLLOWUP ON ON OUTPATIENT: Follow-up with PCP and with Dr. Vo for elective cholecystectomy in 2 weeks Follow-up with GI team in 8 weeks DISCHARGE CONDITION: [Stable]. TIME SPENT ON DISCHARGE: Greater than 40 minutes. Vital Signs/I&Os Vital Signs Date Time Temp Pulse Resp B/P (MAP) Pulse Ox O2 Delivery O2 Flow Rate FiO2 06/06/20 04:19 98.7 95 18 127/73 (91) 95 Room Air 06/05/20 17:18 2 I&O- Last 24 Hours up to 6 AM 06/06/20 06:00 Intake Total 900 ml Output Total 950 ml Balance -50 ml Laboratory Data Labs 24H Laboratory Tests 2 06/06/20 08:10: Nucleated Red Blood Cells % (auto) 0.0, Anion Gap 7L, Glomerular Filtration Rate > 60.0, Calcium Level 9.0, Magnesium Level 2.2, Total Bilirubin 2.6#H, Aspartate Amino Transf (AST/SGOT) 60H, Alanine Aminotransferase (ALT/SGPT) 76, Alkaline Phosphatase 187H, Total Protein 6.9, Albumin 2.4L, Albumin/Globulin Ratio 0.5 CBC/BMP Laboratory Tests 06/06/20 08:10 Discharge Medications Scheduled Amoxicillin/Potassium Clav (Amox-Clav 875-125 mg Tablet) 1 Each Tablet, 1 TAB PO BID, (Reported) Benzoyl Peroxide (On-The-Spot) 21 Gm Cream..g., 1 APLCT TOP BID, (Reported) APPLY TO CHIN AND CHEEKS Hydroxyzine HCl (Hydroxyzine HCl) 50 Mg Tablet, 50 MG PO QPM, (Reported) Lamotrigine (Lamotrigine) 100 Mg Tablet, 300 MG PO BID, (Reported) Pantoprazole Sodium (Pantoprazole Sodium) 40 Mg Tablet.dr, 40 MG PO BID Polyethylene Glycol 3350 (Miralax) 119 Gm Powder, 17 GM PO DAILY, (Reported) dilute in 8 ounces of water or juice Propranolol HCl (Propranolol HCl) 60 Mg Tablet, 60 MG PO TID, (Reported) Selenium Sulfide/Aloe Vera ([place] Blue Moist 1% Shampoo) 207 Ml Shampoo, 1 APLCT TOP DAILY, (Reported) Sertraline HCl (Sertraline HCl) 50 Mg Tablet, 75 MG PO DAILY, (Reported) Scheduled PRN Acetaminophen (Acetaminophen) 325 Mg Tablet, 650 MG PO Q6H PRN for BACK PAIN, (Reported) Oxycodone HCl/Acetaminophen (Oxycodone-Acetaminophen 5-325) 1 Each Tablet, 1 TAB PO TID PRN for PAIN, (Reported) Allergies Coded Allergies: Common Ragweed (Verified Allergy, Mild, 05/31/20) ENVIROMENTAL (Verified Allergy, Mild, 05/31/20) POLLEN (Verified Allergy, Mild, 05/31/20) clarithromycin (Verified Allergy, Mild, 05/31/20) quetiapine (Verified Allergy, Mild, 05/31/20) tetanus toxoid, adsorbed (Verified Allergy, Mild, 05/31/20) topiramate (Verified Allergy, Mild, 05/31/20) SUSANNAH ALCALA DO Jun 06, 2020 12:40
--- NOTE | 2020-06-08 15:04 | REP ---
INDICATION: GALLSTONE PANCREATITIS. COMPARISON: None. TECHNIQUE: Three views. 70.0 seconds of fluoroscopy time is reported. FINDINGS: A sequence of 3 last image hold fluoroscopically obtained spot radiographs of the right upper quadrant taken during ERCP exam document cannulation and contrast injection of the common bile duct. IMPRESSION: Procedural imaging. <Electronically signed by William Jaeger > 06/08/20 2006
== END 2020-06-06 14:11 | disposition home or self-care (01) | DRG 282 ==
LOC: EDBD 10:59 → M ED 10:59 → M ED INP 13:34 → M 4MAIN 17:49
PROVIDERS: ADMIT Internal Medicine; ATTEND Internal Medicine
PROC: 0F7D8DZ Dilation of Pancreatic Duct with Intraluminal Device, Via Natural or Artificial Opening Endoscopic (ICD-10-PCS; principal; 2020-06-05 13:55)
DX: K85.90 Acute pancreatitis without necrosis or infection, unspecified (principal); U07.1 COVID-19; K26.9 Duodenal ulcer, unspecified as acute or chronic, without hemorrhage or perforation; K80.20 Calculus of gallbladder without cholecystitis without obstruction; F84.0 Autistic disorder; Z79.899 Other long term (current) drug therapy; Z88.8 Allergy status to other drugs, medicaments and biological substances; Z88.7 Allergy status to serum and vaccine

== ENCOUNTER 2020-06-16 13:08 | Inpatient (IN) | payer MEDICAID ==
[~2020-06-16] VITALS: Ht 185.4 cm; Wt 125.0 kg
[2020-06-16] MEDS: lamoTRIgine 100MG TAB PO SCH (10:05)
[~2020-06-16 13:08] MED LIST changes: +AMOX875T2 PO; +PANT40TA29 PO
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
[2020-06-16] MEDS ORDERED: ADAP0.1C TOP (13:21)
[2020-06-16] MEDS ORDERED: NS 1,000 ML IV ONE (13:45)
[2020-06-16] MEDS ORDERED: ONDANSETRON 4MG/2ML VIAL IV ONE (13:45)
[2020-06-16] MEDS ORDERED: PANTOPRAZOLE 40MG VIAL (C9113 PER 1) IV ONE (13:45)
[2020-06-16] MEDS ORDERED: KETOROLAC 30 MG/ML 1ML VIAL IV ONE (13:45)
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
[2020-06-16 14:03] LABS: BASO % 0.2 % (0.0-1.0); HEMATOCRIT 38.9 % (42.0-52.0); HEMOGLOBIN 12.9 g/dl (13.5-17.5); LYMPH # 0.3 10^3/uL (1.5-5.0); LYMPH % 1.7 % (24.0-44.0); MEAN CORPUSCULAR HEMOGLOBIN 29.1 pg (27.0-33.0); MEAN CORPUSCULAR HGB CONC 33.2 g/dl (32.0-36.5); MEAN CORPUSCULAR VOLUME 87.8 fl (80.0-96.0); MONO # 0.8 10^3/uL (0.0-0.8); NEUTROPHILS # 17.3 10^3/uL (1.5-8.5); PLATELET COUNT, AUTOMATED 347 10^3/uL (150-450); RED BLOOD COUNT 4.43 10^6/uL (4.30-6.10); WHITE BLOOD COUNT 18.6 10^3/uL (4.0-10.0)
[2020-06-16 14:13] LABS: INR 1.21; PROTHROMBIN TIME 15.5 SECONDS (12.5-14.3)
[2020-06-16 14:35] LABS: ALBUMIN 3.1 GM/DL (3.2-5.2); ALT/SGPT 74 U/L (12-78); BILIRUBIN,DIRECT 0.8 MG/DL (0.0-0.2); BILIRUBIN,TOTAL 1.1 MG/DL (0.2-1.0); BLOOD UREA NITROGEN 8 MG/DL (7-18); CALCIUM LEVEL 8.9 MG/DL (8.5-10.1); CARBON DIOXIDE LEVEL 27 MEQ/L (21-32); CHLORIDE LEVEL 102 MEQ/L (98-107); CREATININE FOR GFR 1.32 MG/DL (0.70-1.30); GLOMERULAR FILTRATION RATE > 60.0 (>60); GLUCOSE, FASTING 112 MG/DL (70-100); LIPASE 450 U/L (73-393); SODIUM LEVEL 136 MEQ/L (136-145); TOTAL PROTEIN 6.7 GM/DL (6.4-8.2)
[2020-06-16] MEDS ORDERED: ISOVUE-370 76% 100ML VIAL As Ordered ONE (14:40)
--- NOTE | 2020-06-16 15:25 | REP ---
INDICATION: abd. COMPARISON: Comparison CT study June 05, 2020. Comparison ERCP images June 05, 2020.. TECHNIQUE: Helical scanning was acquired and 4 mm axial images are re-formatted. Coronal and sagittal MPR images were generated and reviewed. The contrast enhancement dose is 100 mL of intravenous Isovue 370. FINDINGS: Preliminary digital tip puncher radiograph demonstrates a stent just to the left of midline in the pelvis. Bowel gas pattern is otherwise unremarkable. On axial CT images, the lung bases are clear. There is no evidence of pleural effusion or upper abdominal ascites. The liver shows minimal diffuse fatty infiltration. There is a tiny accessory splenule. The spleen is otherwise unremarkable. Normal adrenal glands are seen. There is pancreatic and peripancreatic edema consistent with acute pancreatitis. These findings are less prominent than on the prior study. The bile ducts do not appear to be dilated and appear less prominent as well than on the June 05, 2019 study. The gallbladder is somewhat elongate in appearance, 11.6 cm. Its wall is very slightly thickened. No pericholecystic fluid is seen. Kidneys enhance symmetrically and are morphologically intact. A normal appendix is seen. Seminal vesicles prostate and urinary bladder are intact. The stent which is visible on the tip puncher view is seen on axial CT images to be in the rectum. This is consistent with spontaneous passage of a previously Mathews placed biliary stent into the gastrointestinal stream. There is no evidence of gastrointestinal obstruction or free air. IMPRESSION: There is a stent within the fecal stream in the rectum, presumably a previously placed common bile duct stent. Mildly dilated gallbladder is seen. Resolved intrahepatic biliary ductal dilation. Improved pancreatic and peripancreatic swelling attributable to pancreatitis. <Electronically signed by William Jaeger > 06/16/20 [id number]
[2020-06-16] MEDS ORDERED: PANT-23 PO (17:01)
[2020-06-16] MEDS: metroNIDAZOLE 500 MG in IV 1 EA IV SCH (17:45)
--- NOTE | 2020-06-16 18:03 | HPEPDOC ---
[facility] Medical History & Physical Date of Admission Jun 16, 2020 Date of Service: Jun 16, 2020 Attending Physician: SHANDA SELLERS MD History and Physical CHIEF COMPLAINT: , Abdominal pain HISTORY OF PRESENT ILLNESS: 19-year-old male with past medical history of mental disability, seizure disorder and multiple episodes of acute pancreatitis presents with abdominal pain since yesterday. Patient was admitted 10 days ago for acute pancreatitis, found to have biliary dilation, underwent biliary stent placement by GI with improvement in symptoms and lab findings. Patient was discharged with plans for outpatient cholecystectomy and subsequent removal of biliary stent at a later time. Patient was feeling well after discharge up until 24-48 hours ago when he started experiencing worsening abdominal pain, nausea, vomiting and subjective fevers. Patient has not been able to keep anything down for the past 24 hours. Patient is not had any diarrhea. He denies any shortness of breath, chest pain or headache at this time. He is experiencing significant chills at this time. Patient's caregiver is at bedside who provided most of the information mentioned above. 10 point review of system is negative except for above PAST MEDICAL HISTORY: 1. Mental disability. 2. Seizure disorder. 3. Acute pancreatitis. PAST SURGICAL HISTORY: 1. Biliary stent placement. SOCIAL HISTORY: Never smoker. No alcohol use. No drug use FAMILY HISTORY: Unable to obtain ALLERGIES: Please see below. HOME MEDICATIONS: Please see below. PHYSICAL EXAMINATION: VITAL SIGNS: Please see below. GENERAL: No distress HEENT: Normocephalic, atraumatic, dry mucous membranes NECK: Supple CARDIOVASCULAR EXAMINATION: Tachycardic RESPIRATORY EXAMINATION: Diminished in the bases, no wheezing ABDOMINAL EXAMINATION: Soft, right upper quadrant tenderness to palpation, positive Burt's sign, nondistended, positive bowel sounds EXTREMITIES: Range of motion intact SKIN: No rash NEUROLOGICAL EXAMINATION: no focal deficits PSYCHIATRIC EXAMINATION: Calm and cooperative LABORATORY DATA: See below. IMAGING: CT abdomen and pelvis showing dislocation of the biliary stent (now located in the rectum), no significant biliary dilation noted. Mild gallbladder distention MICROBIOLOGY: Please see below. ASSESSMENT: 19-year-old male with past medical history of mental disability, seizure disorder, and gallstone pancreatitis, status post biliary stent placement. 10 days ago is being readmitted for probable cholecystitis. PLAN: 1. , Abdominal pain. Symptoms and clinical presentation likely consistent with acute cholecystitis. Previously placed common bile duct stent has been displaced and now in the rectum, no signs of biliary duct dilation or obstruction noted on imaging and labs. Lipase trending down. Gen. surgery consulted, will evaluate for possible cholecystectomy. Nothing by mouth, IV fluids, Cipro/Flagyl. 2. Acute kidney injury. Creatinine has doubled since previous hospitalization. 10 days ago, likely prerenal due to vomiting, fever and decreased oral intake. IV fluids, will hold off on extensive workup at this time. CT without any hydronephrosis. 3. Mental disability/seizure disorder. Continue Lamictal 4. History of gastric ulcer/GI bleed. Continue PPI Hemoglobin stable DVT prophylaxis: Heparin subcutaneous GI prophylaxis: PPI Vital Signs Vital Signs Date Time Temp Pulse Resp B/P (MAP) Pulse Ox O2 Delivery O2 Flow Rate FiO2 06/16/20 13:34 06/16/20 13:08 100.1 113 16 97 Room Air Laboratory Data Labs 24H Laboratory Tests 2 06/16/20 13:47: Immature Granulocyte % (Auto) 1.1, Neutrophils (%) (Auto) 93.0H, Lymphocytes (%) (Auto) 1.7L, Monocytes (%) (Auto) 4.0, Eosinophils (%) (Auto) 0.0, Basophils (%) (Auto) 0.2, Neutrophils # (Auto) 17.3H, Lymphocytes # (Auto) 0.3L, Monocytes # (Auto) 0.8, Eosinophils # (Auto) 0.0, Basophils # (Auto) 0.0, Nucleated Red Blood Cells % (auto) 0.0, Prothrombin Time 15.5H, Prothromb Time International Ratio 1.21, Anion Gap 7L, Glomerular Filtration Rate > 60.0, Calcium Level 8.9, Total Bilirubin 1.1H, Direct Bilirubin 0.8H, Aspartate Amino Transf (AST/SGOT) 51H, Alanine Aminotransferase (ALT/SGPT) 74, Alkaline Phosphatase 116, Total Protein 6.7, Albumin 3.1L, Albumin/Globulin Ratio 0.9, Lipase 450H CBC/BMP Laboratory Tests 06/16/20 13:47 Home Medications Scheduled Benzoyl Peroxide (On-The-Spot) 21 Gm Cream..g., 1 APLCT TOP BID APPLY TO CHIN AND CHEEKS Hydroxyzine HCl (Hydroxyzine HCl) 50 Mg Tablet, 50 MG PO QHS Lamotrigine (Lamotrigine) 100 Mg Tablet, 300 MG PO BID Pantoprazole Sodium (Pantoprazole Sodium) 40 Mg Tablet.dr, 40 MG PO BID Polyethylene Glycol 3350 (Miralax) 119 Gm Powder, 17 GM PO BID dilute in 8 ounces of water or juice Propranolol HCl (Propranolol HCl) 60 Mg Tablet, 60 MG PO TID Selenium Sulfide/Aloe Vera ([place] Blue Moist 1% Shampoo) 207 Ml Shampoo, 1 APLCT TOP DAILY Sertraline HCl (Sertraline HCl) 50 Mg Tablet, 75 MG PO DAILY Scheduled PRN Acetaminophen (Acetaminophen) 325 Mg Tablet, 650 MG PO Q6H PRN for BACK PAIN Oxycodone HCl/Acetaminophen (Oxycodone-Acetaminophen 5-325) 1 Each Tablet, 1 TAB PO TID PRN for PAIN Allergies Coded Allergies: Common Ragweed (Verified Allergy, Mild, 06/16/20) ENVIROMENTAL (Verified Allergy, Mild, 06/16/20) POLLEN (Verified Allergy, Mild, 06/16/20) clarithromycin (Verified Allergy, Mild, 06/16/20) quetiapine (Verified Allergy, Mild, 06/16/20) tetanus toxoid, adsorbed (Verified Allergy, Mild, 06/16/20) topiramate (Verified Allergy, Mild, 06/16/20) A-FIB/CHADSVASC A-FIB History Current/History of A-Fib/PAF?: SHANDA Nieto MD Jun 16, 2020 18:03
[2020-06-16] MEDS: CIPROFLOXACIN 400 MG in IV 1 EA IV SCH (18:25)
[2020-06-16] MEDS: NS 1,000 ML IV SCH ×2 (18:25→22:23)
[2020-06-16] MEDS: PANTOPRAZOLE 40MG VIAL (C9113 PER 1) IV SCH (22:05)
[2020-06-16] MEDS: MORPHINE 2 MG/ML 1ML VIAL (J2270) IV PRN (22:21)
[2020-06-17 01:30] VITALS: BP 102/52
[2020-06-17] MEDS: metroNIDAZOLE 500 MG in IV 1 EA IV SCH ×4 (01:47→16:21)
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
[2020-06-17] MEDS: ACETAMINOPHEN TAB 650MG DOSE (2X325MG) PO PRN ×2 (03:36→20:35)
[2020-06-17 04:00] VITALS: BP 104/46
[2020-06-17] MEDS: NS 1,000 ML IV SCH ×4 (04:12→22:51)
[2020-06-17] MEDS: CIPROFLOXACIN 400 MG in IV 1 EA IV SCH ×2 (06:00→18:08)
[2020-06-17 07:46] VITALS: BP 92/53
[2020-06-17 08:34] LABS: HEMATOCRIT 34.6 % (42.0-52.0); MEAN CORPUSCULAR HEMOGLOBIN 28.4 pg (27.0-33.0); MEAN CORPUSCULAR HGB CONC 31.8 g/dl (32.0-36.5); MEAN CORPUSCULAR VOLUME 89.2 fl (80.0-96.0); PLATELET COUNT, AUTOMATED 256 10^3/uL (150-450); RED BLOOD COUNT 3.88 10^6/uL (4.30-6.10); WHITE BLOOD COUNT 11.3 10^3/uL (4.0-10.0)
[2020-06-17 08:58] LABS: ALBUMIN 2.3 GM/DL (3.2-5.2); ALT/SGPT 63 U/L (12-78); BILIRUBIN,TOTAL 0.9 MG/DL (0.2-1.0); BLOOD UREA NITROGEN 13 MG/DL (7-18); CALCIUM LEVEL 7.2 MG/DL (8.5-10.1); CARBON DIOXIDE LEVEL 25 MEQ/L (21-32); CHLORIDE LEVEL 107 MEQ/L (98-107); CREATININE FOR GFR 1.12 MG/DL (0.70-1.30); GLOMERULAR FILTRATION RATE > 60.0 (>60); GLUCOSE, FASTING 99 MG/DL (70-100); MAGNESIUM LEVEL 1.7 MG/DL (1.8-2.4); PHOSPHORUS LEVEL 2.8 MG/DL (2.5-4.9); SODIUM LEVEL 139 MEQ/L (136-145); TOTAL PROTEIN 5.3 GM/DL (6.4-8.2)
[2020-06-17] MEDS: PANTOPRAZOLE 40MG VIAL (C9113 PER 1) IV SCH ×4 (09:00→20:35)
--- NOTE | 2020-06-17 09:20 | REP ---
INDICATION: concern for acute cholecystitis.. COMPARISON: Comparison is made with the previous day's CT study of the abdomen and pelvis. Comparison sonography 03 June 2020.. TECHNIQUE: Right upper quadrant sonography. FINDINGS: Scanning through the right upper quadrant of the abdomen demonstrates innumerable shadowing gallstones in the dependent portion the gallbladder. The gallbladder wall is somewhat thickened measuring 0.46 cm in thickness. No pericholecystic fluid is seen. Gallbladder does not appear distended on on today's sonography. Common bile duct is mildly prominent at 0.7 cm. No focal liver lesion is seen. No intrahepatic biliary ductal dilation is observed. There is no evidence of ascites or right renal abnormality. The right kidney measures 13.1 x 5.7 x 5.9 cm. IMPRESSION: Cholelithiasis with gallbladder wall thickening and mild dilation of the common bile duct. No pericholecystic fluid is seen. The gallbladder is a little larger than it was on the 03 June 2020 allowing for discrimination of the wall by virtue of some bile within the lumen of the gallbladder in addition to innumerable stones. Hepatobiliary nuclear scan could be considered if concern for acute cholecystitis persists. <Electronically signed by William Jaeger > 06/17/20 0960
[2020-06-17] MEDS: lamoTRIgine 100MG TAB PO SCH ×2 (11:05→20:35)
[2020-06-17] MEDS: MORPHINE 2 MG/ML 1ML VIAL (J2270) IV PRN ×2 (11:40→23:46)
[2020-06-17] MEDS ORDERED: LORazepam 2 MG/ML VIAL IV STA (11:48)
[2020-06-17] MEDS ORDERED: ONDANSETRON 4MG/2ML VIAL IV PRN (12:00)
[2020-06-17 16:00] VITALS: BP 97/53
--- NOTE | 2020-06-17 16:07 | ECGEPIP ---
[facility] Test Date: 2020-06-17 Pat Name: SYLVIA REINA Department: Room: [place] [address] Gender: Male Dining Room Maid: : 2000 Requested By: SHANDA Chairez Order Number: [id number] Reading MD: Jason Reveles Measurements Intervals [place] Rate: 112 P: 59 MI: 154 QRS: 57 QRSD: 92 T: 45 QT: 300 QTc: 409 Interpretive Statements Sinus tachycardia Nonspecific T wave abnormality Comparison tracing not on file Electronically Signed on 06-17-2020 16:07:32 EST by Jason Reveles
[2020-06-17 18:00] VITALS: BP 93/52
--- NOTE | 2020-06-17 19:00 | IPNPDOC ---
Date Seen The patient was seen on 06/17/20. Progress Note SUBJECTIVE: Patient remains very uncomfortable, feels extremely cold and requesting multiple blankets. He continues to have significant abdominal pain and agitated at this time. PHYSICAL EXAMINATION: VITAL SIGNS: Please see below. GENERAL: Moderate distress HEENT: moist mucous membranes NECK: Supple CARDIOVASCULAR EXAMINATION: S1, S2, no murmurs RESPIRATORY EXAMINATION: Scattered rhonchi, no wheezing ABDOMINAL EXAMINATION: Soft, right upper quadrant and epigastric tenderness to palpation, nondistended, positive bowel sounds EXTREMITIES: Range of motion intact SKIN: No rash NEUROLOGICAL EXAMINATION: No focal deficits LABORATORY DATA, IMAGING STUDIES, MICROBIOLOGY: Please see below. ASSESSMENT AND PLAN: 19-year-old male with past medical history of mental disability and recurrent pancreatitis is admitted for acute cholecystitis PLAN: 1. Acute cholecystitis Multiple episodes of acute pancreatitis, choledocholithiasis, status post biliary stent placement, which has been dislodged. Gallbladder distended with innumerable small gallstones Evaluate her by general surgery, tentatively plan for cholecystectomy tomorrow. Clear liquid diet, nothing by mouth after midnight, maintenance IV fluids, Cipro/Flagyl. 2. Acute kidney injury. Likely prerenal, improving with IV fluids, no need for extensive workup at this time, continue gentle IV hydration. 3. Mental disability/seizure disorder. Continue Lamictal 4. History of gastric ulcer/GI bleed. Continue PPI Hemoglobin stable DVT prophylaxis: Heparin subcutaneous GI prophylaxis: PPI VS, I&O, 24H, Fishbone Vital Signs/I&O Vital Signs Date Time Temp Pulse Resp B/P (MAP) Pulse Ox O2 Delivery O2 Flow Rate FiO2 06/17/20 16:00 97.2 102 18 97/53 (68) 95 Room Air I&O- Last 24 Hours up to 6 AM 06/17/20 06:00 Intake Total 2900 ml Output Total 0 ml Balance 2900 ml Laboratory Data 24H LABS Laboratory Tests 2 06/17/20 07:47: Nucleated Red Blood Cells % (auto) 0.0, Anion Gap 7L, Glomerular Filtration Rate > 60.0, Calcium Level 7.2#L, Phosphorus Level 2.8, Magnesium Level 1.7L, Total Bilirubin 0.9, Aspartate Amino Transf (AST/SGOT) 51H, Alanine Aminotransferase (ALT/SGPT) 63, Alkaline Phosphatase 98, Total Protein 5.3#L, Albumin 2.3#L, Albumin/Globulin Ratio 0.8 CBC/BMP Laboratory Tests 06/17/20 07:47 SHANDA SELLERS MD Jun 17, 2020 19:00
--- NOTE | 2020-06-17 19:43 | CR ---
CONSULTATION DATE: 06/17/2020 REQUESTING PHYSICIAN: Dr. Raza of the hospitalist service. REASON FOR CONSULTATION: Acute cholecystitis secondary to cholelithiasis. HISTORY OF PRESENT ILLNESS: The patient is a 19-year-old man with a history of underlying developmental intellectual disability and a seizure disorder. He had been admitted on or about the 03 of June when he presented with jaundice. His evaluation revealed cholelithiasis. An MRI showed no evidence of choledocholithiasis and his labs initially improved and he was discharged home. He returned, however, within a day with severe left upper quadrant pain and was found to have evidence for acute pancreatitis. At that point, he underwent an ERCP with placement of a stent. This was performed by Dr. Quintana. His labs returned toward normal though they had not normalized completely and he was again discharged home. He returned on the now with complaints of right upper quadrant pain. He reported some nausea and vomiting. He was evaluated on presentation with a CT scan which showed that his bile duct stent had come out and was in the GI tract. His gallbladder appeared mildly thickened and distended. His laboratory studies showed that his white count was elevated to 18,000 but his liver function tests had returned effectively to normal. With tenderness in the right upper quadrant, he was admitted by the hospitalist with a diagnosis of acute cholecystitis and I was consulted to evaluate him for possible surgery during this hospitalization. ALLERGIES: The patient has allergies reported to various environmental plants. He has allergies to clarithromycin, quetiapine, tetanus toxoid and topiramate. HOME MEDICATIONS: 1. Benzoyl peroxide cream. 2. Hydroxyzine at bedtime. 3. Lamotrigine 300 mg twice daily. 4. Pantoprazole 40 mg twice daily. 5. Polyethylene glycol powder twice daily. 6. Propranolol 60 mg p.o. t.i.d. 7. Selsun blue shampoo. 8. Sertraline 75 mg p.o. daily. PAST MEDICAL HISTORY: 1. Intellectual disability. 2. He has a history of seizure disorder. 3. He has recently had gallstone pancreatitis. PAST SURGICAL HISTORY: Significant only for his ERCP and placement of his biliary stent on the 05 of June. SOCIAL HISTORY: The patient is nonsmoker and denies any alcohol. FAMILY HISTORY: Nonobtainable at this point. REVIEW OF SYSTEMS: From his medical records suggest no history of heart, lung or endocrine issues. PHYSICAL EXAMINATION: General: Reveals a tall, young man lying quietly on the hospital bed. Vital signs: His most recent vital signs show a temperature of 97.2, pulse of 102, respirations of 18 and a blood pressure of 97/53. Skin is warm and dry. He is alert and responsive. He is slow to respond and gives very short, several word answers. He does not appear to be able to have a deep understanding of his medical issues. He does report that his stomach hurts. HEENT: Sclerae are anicteric. Neck: Supple. Heart: Shows a regular rate and rhythm. Lungs: Clear to auscultation bilaterally. The abdomen is perhaps mildly obese. She had some bowel sounds in all four quadrants. He has no evident scars. There is no evident hernia. There is no tympany to percussion. There is no significant tenderness to percussion. On palpation, he does have some tenderness in the right subcostal area. The remainder of the abdomen is soft and without definite tenderness. Extremities: He has no peripheral edema and has palpable radial and dorsalis pedis pulses. LABORATORY STUDIES: Today show a white count of 11 which is down from 19 on admission. Hemoglobin is 11, hematocrit 35 and a platelet count of 256,000. Chemistry profile revealed an AST of 51, ALT of 63 and an alk phos of 98 with a total bilirubin of 0.9. His electrolytes are normal with a normal BUN and creatinine. IMAGING: The patient had a gallbladder ultrasound obtained this morning. This showed the common bile duct to be 7 mm. There was no intrahepatic biliary duct dilatation. The gallbladder had a large number of shadowing gallstones and the gallbladder was somewhat thickened at approximately 4-1/2 mm. IMPRESSION: The patient is a 19-year-old man with developmental disability who had recently presented with obstructive jaundice and then biliary pancreatitis. His liver functions have now returned to normal but he is having right upper quadrant pain and his gallbladder ultrasound and CT suggest gallbladder wall thickening. On presentation his white blood cell count was elevated to 18,000 and overnight he had a maximum temperature of 102.2. His findings are felt to be consistent with acute cholecystitis. PLAN: The patient does seem to be a good candidate for cholecystectomy. His stent has come out of his common bile duct but I anticipate his duct will remain open enough following the stent placement such that if he passes a small stone in the near future, this will pass through. His pancreatitis no doubt still has some associated edema but hopefully this will not become a significant impediment to laparoscopic cholecystectomy. I called his mother and spoke with her about the surgery. I have added him onto the schedule for Sunday, the and this is set for about noon. I will repeat a CBC and a chemistry profile and a lipase on the morning of the . He can take some clear liquids today and I have taken the liberty of ordering those. The patient will remain NPO after midnight. If his labs are acceptable in the morning, we will plan on proceeding with a laparoscopic cholecystectomy. FREDDY
[2020-06-17 22:00] VITALS: BP_SYST 122; BP_DIAS 4; BP_DIAS 64
[2020-06-18] VITALS (8 sets, daily range): BP systolic 106–126; BP diastolic 62–76
[2020-06-18] MEDS: metroNIDAZOLE 500 MG in IV 1 EA IV SCH ×3 (02:43→20:22)
[2020-06-18] MEDS: MORPHINE 2 MG/ML 1ML VIAL (J2270) IV PRN ×2 (02:50→07:56)
[2020-06-18] MEDS: CIPROFLOXACIN 400 MG in IV 1 EA IV SCH ×2 (05:40→17:48)
[2020-06-18 06:35] LABS: HEMATOCRIT 31.4 % (42.0-52.0); HEMOGLOBIN 10.1 g/dl (13.5-17.5); MEAN CORPUSCULAR HEMOGLOBIN 28.6 pg (27.0-33.0); MEAN CORPUSCULAR HGB CONC 32.2 g/dl (32.0-36.5); PLATELET COUNT, AUTOMATED 175 10^3/uL (150-450); RED BLOOD COUNT 3.53 10^6/uL (4.30-6.10); WHITE BLOOD COUNT 5.6 10^3/uL (4.0-10.0)
[2020-06-18 06:58] LABS: ALBUMIN 2.2 GM/DL (3.2-5.2); ALT/SGPT 49 U/L (12-78); BILIRUBIN,TOTAL 0.8 MG/DL (0.2-1.0); BLOOD UREA NITROGEN 8 MG/DL (7-18); CALCIUM LEVEL 7.4 MG/DL (8.5-10.1); CARBON DIOXIDE LEVEL 25 MEQ/L (21-32); CHLORIDE LEVEL 108 MEQ/L (98-107); CREATININE FOR GFR 0.76 MG/DL (0.70-1.30); GLOMERULAR FILTRATION RATE > 60.0 (>60); GLUCOSE, FASTING 82 MG/DL (70-100); LIPASE 327 U/L (73-393); SODIUM LEVEL 140 MEQ/L (136-145); TOTAL PROTEIN 5.2 GM/DL (6.4-8.2)
[2020-06-18 07:21] LABS: ATYPICAL LYMPH 1 % (0-5); BASOPHILS 1 % (0-1); LYMPHOCYTES 17 % (16-44); MONOCYTES 5 % (0-5); NEUTROPHILS 76 % (28-66); PLATELET ESTIMATE NORMAL (NORMAL)
[2020-06-18] MEDS: lamoTRIgine 100MG TAB PO SCH ×2 (07:56→20:22)
[2020-06-18] MEDS: PANTOPRAZOLE 40MG VIAL (C9113 PER 1) IV SCH ×2 (07:56→20:22)
[2020-06-18] MEDS: NS 1,000 ML IV SCH ×3 (08:05→21:39)
[2020-06-18] MEDS: ACETAMINOPHEN TAB 650MG DOSE (2X325MG) PO PRN (10:32)
[2020-06-18] MEDS ORDERED: propofoL 200 MG/20 ML VIAL As Ordered ONE (12:01)
[2020-06-18] MEDS ORDERED: ROCURONIUM BROMIDE 50 MG/5 ML VIAL As Ordered ONE ×2 (12:01→13:54)
[2020-06-18] MEDS ORDERED: dexameTHASONE 4 MG/ML 1ML VIAL (J1100 PER 1MG) As Ordered ONE (12:01)
[2020-06-18] MEDS ORDERED: LIDOCAINE 2% 100MG/5ML SDV (FOR ANES.) As Ordered ONE (12:01)
[2020-06-18] MEDS ORDERED: ONDANSETRON 4MG/2ML VIAL As Ordered ONE ×3 (12:01→16:11)
[2020-06-18] MEDS ORDERED: fentaNYL 100 MCG/2 ML INJECTION (J3010) As Ordered ONE ×2 (12:05→15:12)
[2020-06-18] MEDS ORDERED: MIDAZOLAM INJ 2MG/2ML VIAL (J2250 PER 1MG) As Ordered ONE (12:05)
[2020-06-18] MEDS ORDERED: BUPIVACAINE HCL 0.25% 30ML VIAL As Ordered ONE (12:45)
--- NOTE | 2020-06-18 12:49 | IPNPDOC ---
Date Seen The patient was seen on 06/18/20. Progress Note SUBJECTIVE: Patient seen in the morning, resting comfortably in bed today, pain has subsided significantly and minimal at this time. Patient without any complaints. Currently remains nothing by mouth for cholecystectomy later today. PHYSICAL EXAMINATION: VITAL SIGNS: Please see below. GENERAL: No distress HEENT: moist mucous membranes NECK: Supple CARDIOVASCULAR EXAMINATION: S1, S2, no murmurs RESPIRATORY EXAMINATION: Clear to auscultation, no wheezing ABDOMINAL EXAMINATION: Soft, mild abdominal tenderness, nondistended, positive bowel sounds EXTREMITIES: Range of motion intact SKIN: No rash NEUROLOGICAL EXAMINATION: No focal deficits LABORATORY DATA, IMAGING STUDIES, MICROBIOLOGY: Please see below. ASSESSMENT AND PLAN: 19-year-old male with past medical history of mental disability and recurrent pancreatitis is admitted for acute cholecystitis PLAN: 1. Acute cholecystitis Multiple episodes of acute pancreatitis, choledocholithiasis, status post biliary stent placement 06/06/20, which has been dislodged. Gallbladder distended with innumerable small gallstones Evaluated by general surgery, scheduled for cholecystectomy tomorrow. Nothing by mouth, maintenance IV fluids, Cipro/Flagyl. 2. Acute kidney injury. Likely prerenal, resolved with IV fluids, will monitor. 3. Mental disability/seizure disorder. Continue Lamictal 4. History of gastric ulcer/GI bleed. Continue PPI Hemoglobin stable DVT prophylaxis: Heparin subcutaneous GI prophylaxis: PPI VS, I&O, 24H, Fishbone Vital Signs/I&O Vital Signs Date Time Temp Pulse Resp B/P (MAP) Pulse Ox O2 Delivery O2 Flow Rate FiO2 06/18/20 08:12 20 06/18/20 06:00 98.0 93 109/65 (80) 97 06/17/20 23:56 Room Air I&O- Last 24 Hours up to 6 AM 06/18/20 06:00 Intake Total 3100 ml Output Total 1025 ml Balance 2075 ml Laboratory Data 24H LABS Laboratory Tests 2 06/18/20 05:35: Neutrophils (%) (Auto) , Nucleated Red Blood Cells % (auto) 0.0, Neutrophils 76H, Lymphocytes (Manual) 17, Monocytes (Manual) 5, Basophils (Manual) 1, Atypical Lymphocytes 1, Red Blood Cell Morphology NORMAL, Platelet Estimate NORMAL, Anion Gap 7L, Glomerular Filtration Rate > 60.0, Calcium Level 7.4L, Total Bilirubin 0.8, Aspartate Amino Transf (AST/SGOT) 33, Alanine Aminotransferase (ALT/SGPT) 49, Alkaline Phosphatase 98, Total Protein 5.2L, Albumin 2.2L, Albumin/Globulin Ratio 0.7, Lipase 327 CBC/BMP Laboratory Tests 06/18/20 05:35 Microbiology Microbiology 06/18/20 Respiratory Virus Panel (PCR) (LUIS ARMANDO) - Final, Complete SHANDA SELLERS MD Jun 18, 2020 12:49
[2020-06-18] MEDS ORDERED: NEOSTIGMINE 10MG/10ML VIAL (J2710 PER 0.5MG) As Ordered ONE (15:10)
[2020-06-18] MEDS ORDERED: GLYCOPYRROLATE INJ 0.2 MG/ML 2 ML VIAL As Ordered ONE (15:10)
[2020-06-18] MEDS ORDERED: oxyCODONE 5MG TAB PO PRN (16:30)
[2020-06-18] MEDS ORDERED: fentaNYL 100 MCG/2 ML INJECTION (J3010) IV PRN (16:30)
[2020-06-18] MEDS ORDERED: LR 1,000 ML IV SCH (16:30)
[2020-06-18] MEDS ORDERED: ONDANSETRON 4MG/2ML VIAL IV PRN (16:30)
[2020-06-18] MEDS: PERCOCET 5MG/325MG TAB PO PRN (20:23)
--- NOTE | 2020-06-18 21:37 | RO ---
OPERATIVE NOTE DATE OF OPERATION: 06/18/2020 PREOPERATIVE DIAGNOSIS: Cholelithiasis with acute cholecystitis. POSTOPERATIVE DIAGNOSIS: Cholelithiasis with acute cholecystitis. PROCEDURE: Laparoscopic cholecystectomy. SURGEON: Russell Santoyo MD ANESTHESIA: General INDICATIONS FOR THE PROCEDURE: The patient is a 19-year-old man who had been admitted approximately two weeks ago with obstructive jaundice. This initially seemed to improve and he was discharged home but he returned with severe left upper quadrant pain and was found to have pancreatitis. He underwent ERCP with placement of a common duct stent. His liver function tests were returning toward normal and he was discharged home to follow up for cholecystectomy. He returned to the emergency department on the with severe pain now in the epigastrium and right upper quadrant and had findings consistent with acute cholecystitis. He was admitted by the hospitalist and started the antibiotics he is now for a laparoscopic cholecystectomy. DESCRIPTION OF PROCEDURE: The patient was brought to the operating room and placed on the table in a supine position. He was placed under general endotracheal anesthesia. The patient's abdomen was prepped and draped in a sterile fashion. 1/4% Marcaine was infiltrated at each of the trocar sites as needed. A short transverse left upper quadrant incision was made and a Veress needle was inserted. After a positive hanging drop test, a 5 mm port was placed over a 5 mm scope and advanced through the abdominal wall without difficulty. Initial examination showed a normal appearing liver. There was abundant omental fat covering the bowel. The gallbladder was clearly seen and was tensely distended and edematous and erythematous, consistent with acute cholecystitis. An 11 mm port was placed just above the umbilicus and two 5 mm ports were placed in the right upper quadrant. The patient was rolled slightly to the left and placed into a reverse Trendelenburg position. Graspers were inserted. The gall was distended and clearly contained innumerable stones but it was possible to grasp the gallbladder near the fundus and elevate the gallbladder. There were some inflammatory adhesions to the surrounding omentum and these were lysed with a hook cautery. Dissection was then begun in the region of the gallbladder neck. The area was clearly edematous and inflamed. Careful dissection through the pericholecystic tissues identified the cystic duct which appeared somewhat enlarged. With further dissection, the cholecystic artery was identified. One branch of this was identified coming to the gallbladder and this was doubly clipped and divided. With further dissection, a second arterial branch was identified and this was also clipped and divided. Further dissection was carried out around the cystic duct to try to identify the borders better from the surrounding inflamed tissue. In the course of dissection, a small opening was created in the cystic duct. There was a minimal amount of watery fluid released and it was clear that there was a stone impacted in the cystic duct at this point. I therefore opened the cystic duct further and extracted this roughly 6-7 mm pear-shaped stone. With the stone removed, there was some backflow of bile from the distal end of the cystic duct. There did not appear to be any other stones distal to this obstructing stone. The cystic duct was clearly too large to be encompassed in a standard hemoclip. The cystic duct was therefore transected and the end of the cystic duct was controlled with a 1-0 Vicryl Endoloop. The gallbladder was then dissected free from the gallbladder bed. The pericholecystic tissues were quite edematous and the dissection was therefore somewhat slowed but the gallbladder was completely removed without perforation. The gallbladder and the previously removed cystic duct stone were then placed in an Endopouch. The right upper quadrant was irrigated and inspected. There was no evidence of any bleeding or bile leak. The patient was returned to a flat position. The abdomen was deflated and the trocars were removed. The gallbladder was recovered through the supraumbilical site. This necessitated extending the fascial and skin incisions somewhat to pass the gallbladder full of stones through the abdominal wall. The gallbladder was then sent for permanent pathology. The fascia was closed with interrupted simple sutures of 2-0 Vicryl. The skin incisions were all closed with buried 4-0 Vicryl and Steri-Strips. Some additional 1/4% Marcaine was infiltrated around the incisions. Light dressings were applied. The patient tolerated the procedure well without apparent complication. He was awakened in the operating room, extubated and moved to the recovery room in stable condition. FREDDY
[2020-06-19] MEDS: metroNIDAZOLE 500 MG in IV 1 EA IV SCH ×2 (01:14→09:55)
[2020-06-19 02:00] VITALS: BP 118/67
[2020-06-19] MEDS: CIPROFLOXACIN 400 MG in IV 1 EA IV SCH (05:10)
[2020-06-19] MEDS: NS 1,000 ML IV SCH (05:10)
[2020-06-19] MEDS: ACETAMINOPHEN TAB 650MG DOSE (2X325MG) PO PRN (05:26)
[2020-06-19 05:36] LABS: HEMATOCRIT 34.1 % (42.0-52.0); HEMOGLOBIN 10.9 g/dl (13.5-17.5); MEAN CORPUSCULAR HEMOGLOBIN 28.1 pg (27.0-33.0); MEAN CORPUSCULAR VOLUME 87.9 fl (80.0-96.0); PLATELET COUNT, AUTOMATED 211 10^3/uL (150-450); RED BLOOD COUNT 3.88 10^6/uL (4.30-6.10); WHITE BLOOD COUNT 5.8 10^3/uL (4.0-10.0)
[2020-06-19 06:00] VITALS: BP 111/61
[2020-06-19 06:09] LABS: ALBUMIN 2.2 GM/DL (3.2-5.2); ALT/SGPT 41 U/L (12-78); BILIRUBIN,TOTAL 0.6 MG/DL (0.2-1.0); BLOOD UREA NITROGEN 8 MG/DL (7-18); CALCIUM LEVEL 7.5 MG/DL (8.5-10.1); CARBON DIOXIDE LEVEL 25 MEQ/L (21-32); CHLORIDE LEVEL 109 MEQ/L (98-107); GLOMERULAR FILTRATION RATE > 60.0 (>60); GLUCOSE, FASTING 116 MG/DL (70-100); MAGNESIUM LEVEL 2.1 MG/DL (1.8-2.4); PHOSPHORUS LEVEL 2.5 MG/DL (2.5-4.9); POTASSIUM SERUM 4.5 MEQ/L (3.5-5.1); SODIUM LEVEL 142 MEQ/L (136-145); TOTAL PROTEIN 5.4 GM/DL (6.4-8.2)
[2020-06-19] MEDS: lamoTRIgine 100MG TAB PO SCH (09:55)
[2020-06-19] MEDS: PANTOPRAZOLE 40MG VIAL (C9113 PER 1) IV SCH (09:55)
[2020-06-19 10:00] VITALS: BP 118/56
--- NOTE | 2020-06-19 12:06 | IPN ---
PROGRESS NOTE DATE: 06/19/2020 SUBJECTIVE: The patient is now postop day #1 from a laparoscopic cholecystectomy for acute cholecystitis. He has done well since surgery. This morning he reports some soreness in his shoulder and in his abdomen but he moves well. He has had no nausea or vomiting and has been tolerating a diet. OBJECTIVE: VITAL SIGNS: He has been afebrile since surgery with pulse ranging in the 60s to low 90s and normal blood pressure. INTAKE AND OUTPUT: Show that yesterday he took 1300 mL of oral fluids and his urine output was excellent at 1950. GENERAL: The patient is sitting up in the bed looking at a game on his phone. He demonstrates that it is sore when he lies down and sits up but he moves quite normally without obvious discomfort when he demonstrates what makes it hurt. ABDOMEN: Mildly obese but soft. His dressings are dry and intact and he has bowel sounds present. LABORATORY STUDIES: White count 6, hemoglobin 11, hematocrit 34, platelet count 211,000. Chemistry profile shows normal liver function tests. ASSESSMENT: The patient is doing very well postop day 1 from his laparoscopic cholecystectomy for acute cholecystitis. RECOMMENDATIONS: The patient was discussed with Dr. Raza, the Hospitalist caring for him. I believe the patient will be ready for discharge today and we agreed that he could go home after lunch. I recommended sending him home without any further antibiotics. He should follow up in my office for postop visit in 10-14 days. FREDDY
--- NOTE | 2020-06-19 12:25 | DS.PDOC ---
Discharge Summary General Date of Admission Jun 16, 2020 at 23:34 Date of Discharge 06/19/20 Attending Physician: SHANDA SELLERS MD Discharge Summary PROCEDURES PERFORMED DURING STAY: Cholecystectomy ADMITTING DIAGNOSES: 1. Acute cholecystitis, acute renal failure. DISCHARGE DIAGNOSES: 1. Acute cholecystitis, acute renal failure. COMPLICATIONS/CHIEF COMPLAINT: Abdominal Pain, Acute Renal Failure,. HISTORY OF PRESENT ILLNESS: 19-year-old male with past medical history of mental disability and recurrent pancreatitis, was admitted for acute cholecystitis and acute renal failure. He was evaluated by general surgery and underwent cholecystectomy yesterday, significantly improved, asymptomatic. Today, tolerating a regular diet without difficulty. He has no pain at this time. Patient's HDL was likely prerenal due to GI losses and lack of by mouth intake due to acute cholecystitis, treated with IV hydration and renal function returned to baseline. Patient is cleared for discharge and outpatient follow-up with general surgery in 1-2 weeks. Patient is hemodynamically stable for discharge at this time. HOSPITAL COURSE: As above. DISCHARGE MEDICATIONS: Please see below. ALLERGIES: Please see below. PHYSICAL EXAMINATION: VITAL SIGNS: Please see below. GENERAL: No distress HEENT: Normocephalic, atraumatic, moist mucous membranes NECK: Supple CARDIOVASCULAR EXAMINATION: S1, S2, no murmurs RESPIRATORY EXAMINATION: Clear to auscultation, no wheezing ABDOMINAL EXAMINATION: Soft, nontender, nondistended, positive bowel sounds EXTREMITIES: Range of motion intact SKIN: No rash NEUROLOGICAL EXAMINATION: Alert and oriented 3, no focal deficits PSYCHIATRIC EXAMINATION: Calm and cooperative LABORATORY DATA: Please see below. IMAGING: CT abdomen and pelvis with dislodged biliary stent, distended gallbladder with gallstones PROGNOSIS: Good ACTIVITY: As tolerated. DIET: Regular DISCHARGE PLAN: Follow with general surgery in 1-2 weeks DISPOSITION: Back to [facility] facility. DISCHARGE INSTRUCTIONS: 1. As above. DISCHARGE CONDITION: Stable. TIME SPENT ON DISCHARGE: Greater than 20 minutes. Vital Signs/I&Os Vital Signs Date Time Temp Pulse Resp B/P (MAP) Pulse Ox O2 Delivery O2 Flow Rate FiO2 06/19/20 10:00 97.7 92 18 118/56 (76) 96 Room Air 06/18/20 16:35 2 I&O- Last 24 Hours up to 6 AM 06/19/20 06:00 Intake Total 5200 ml Output Total 2170 ml Balance 3030 ml Laboratory Data Labs 24H Laboratory Tests 2 06/19/20 05:02: Nucleated Red Blood Cells % (auto) 0.0, Anion Gap 8, Glomerular Filtration Rate > 60.0, Calcium Level 7.5L, Phosphorus Level 2.5, Magnesium Level 2.1, Total Bilirubin 0.6, Aspartate Amino Transf (AST/SGOT) 31, Alanine Aminotransferase (ALT/SGPT) 41, Alkaline Phosphatase 100, Total Protein 5.4L, Albumin 2.2L, Albumin/Globulin Ratio 0.7 CBC/BMP Laboratory Tests 06/19/20 05:02 Microbiology Microbiology 06/18/20 Respiratory Virus Panel (PCR) (LUIS ARMANDO) - Final, Complete Discharge Medications Scheduled Benzoyl Peroxide (On-The-Spot) 21 Gm Cream..g., 1 APLCT TOP BID, (Reported) APPLY TO CHIN AND CHEEKS Hydroxyzine HCl (Hydroxyzine HCl) 50 Mg Tablet, 50 MG PO QHS, (Reported) Lamotrigine (Lamotrigine) 100 Mg Tablet, 300 MG PO BID, (Reported) Pantoprazole Sodium (Pantoprazole Sodium) 40 Mg Tablet.dr, 40 MG PO BID, (Reported) Polyethylene Glycol 3350 (Miralax) 119 Gm Powder, 17 GM PO BID, (Reported) dilute in 8 ounces of water or juice Propranolol HCl (Propranolol HCl) 60 Mg Tablet, 60 MG PO TID, (Reported) Selenium Sulfide/Aloe Vera (Selsun Blue Moist 1% Shampoo) 207 Ml Shampoo, 1 APLCT TOP DAILY, (Reported) Sertraline HCl (Sertraline HCl) 50 Mg Tablet, 75 MG PO DAILY, (Reported) Scheduled PRN Acetaminophen (Acetaminophen) 325 Mg Tablet, 650 MG PO Q6H PRN for BACK PAIN, (Reported) Oxycodone HCl/Acetaminophen (Oxycodone-Acetaminophen 5-325) 1 Each Tablet, 1 TAB PO TID PRN for PAIN, (Reported) Allergies Coded Allergies: Common Ragweed (Verified Allergy, Mild, 06/16/20) ENVIROMENTAL (Verified Allergy, Mild, 06/16/20) POLLEN (Verified Allergy, Mild, 06/16/20) clarithromycin (Verified Allergy, Mild, 06/16/20) quetiapine (Verified Allergy, Mild, 06/16/20) tetanus toxoid, adsorbed (Verified Allergy, Mild, 06/16/20) topiramate (Verified Allergy, Mild, 06/16/20) SHANDA SELLERS MD Jun 19, 2020 12:25
[2020-06-19] MEDS: PERCOCET 5MG/325MG TAB PO PRN (12:42)
== END 2020-06-19 14:30 | disposition home or self-care (01) | DRG 263 ==
LOC: M ED 13:08 → M ED INP 23:34 → ENRESERV 06-17 00:41 → M PCU 06-17 01:24 → M MSPAV 06-17 18:17
PROVIDERS: ADMIT Internal Medicine; ATTEND Internal Medicine
PROC: 0FT44ZZ Resection of Gallbladder, Percutaneous Endoscopic Approach (ICD-10-PCS; principal; 2020-06-18 13:00)
DX: K81.0 Acute cholecystitis (principal); N17.9 Acute kidney failure, unspecified; F79 Unspecified intellectual disabilities; G40.909 Epilepsy, unspecified, not intractable, without status epilepticus; Z79.899 Other long term (current) drug therapy; Z88.8 Allergy status to other drugs, medicaments and biological substances; Z88.7 Allergy status to serum and vaccine

== ENCOUNTER → 2020-07-13 | Outpatient (CLI) | payer MEDICAID ==
[~2020-07-13] MED LIST changes: +ADAP0.1C TOP; +ADAP1GEL7 EX; +PANT-23 PO
== END ==
LOC: M LABSMTC 13:59
PROVIDERS: ATTEND Anesthesiology
DX: Z01.812 Encounter for preprocedural laboratory examination (principal); Z20.822 Contact with and (suspected) exposure to COVID-19

== ENCOUNTER 2020-07-14 10:30 | Emergency (ER) | payer MEDICAID ==
[2020-07-14 11:00] VITALS: BP 139/68
--- NOTE | 2020-07-15 00:58 | ECGEPIP ---
[facility] - ED Test Date: 2020-07-14 Pat Name: SYLVIA REINA Department: Room: - Gender: Male [employer] Manager: BENITO : 2000 Requested By: Marci Pro Order Number: [id number] Reading MD: Sal Walden Measurements Intervals [place] Rate: 69 P: 43 WI: 192 QRS: 46 QRSD: 88 T: 41 QT: 352 QTc: 377 Interpretive Statements Normal sinus rhythm Early repolarization Electronically Signed on 07-15-2020 0:58:07 EDT by Sal Walden
== END 2020-07-14 11:40 | disposition home or self-care (01) ==
LOC: M ED 10:30
DX: Z71.1 Person with feared health complaint in whom no diagnosis is made (principal); R56.9 Unspecified convulsions; F79 Unspecified intellectual disabilities; Z88.8 Allergy status to other drugs, medicaments and biological substances; Z79.899 Other long term (current) drug therapy

== ENCOUNTER → 2020-07-14 | Outpatient (REF) | payer MEDICAID ==
[2020-07-14 12:33] LABS: BASO % 0.5 % (0.0-1.0); EOS # 0.2 10^3/uL (0.0-0.5); EOS % 2.9 % (0.0-3.0); HEMATOCRIT 43.1 % (42.0-52.0); HEMOGLOBIN 14.1 g/dl (13.5-17.5); LYMPH # 2.2 10^3/uL (1.5-5.0); LYMPH % 37.2 % (24.0-44.0); MEAN CORPUSCULAR HEMOGLOBIN 28.6 pg (27.0-33.0); MEAN CORPUSCULAR HGB CONC 32.7 g/dl (32.0-36.5); MEAN CORPUSCULAR VOLUME 87.4 fl (80.0-96.0); MONO # 0.4 10^3/uL (0.0-0.8); MONO % 6.7 % (2.0-8.0); NEUTROPHILS # 3.1 10^3/uL (1.5-8.5); NEUTROPHILS % 52.4 % (36.0-66.0); PLATELET COUNT, AUTOMATED 256 10^3/uL (150-450); RED BLOOD COUNT 4.93 10^6/uL (4.30-6.10); WHITE BLOOD COUNT 5.9 10^3/uL (4.0-10.0)
[2020-07-14 12:58] LABS: ALT/SGPT 52 U/L (12-78); BILIRUBIN,TOTAL 0.5 MG/DL (0.2-1.0); BLOOD UREA NITROGEN 12 MG/DL (7-18); CALCIUM LEVEL 9.3 MG/DL (8.5-10.1); CARBON DIOXIDE LEVEL 27 MEQ/L (21-32); CHLORIDE LEVEL 105 MEQ/L (98-107); CREATININE FOR GFR 0.97 MG/DL (0.70-1.30); FERRITIN 185 NG/ML (26-388); GLOMERULAR FILTRATION RATE > 60.0 (>60); GLUCOSE, FASTING 106 MG/DL (70-100); IRON (FE) 85 UG/DL (65-175); PERCENT SATURATION 26.2 % (19.7-50.0); POTASSIUM SERUM 3.9 MEQ/L (3.5-5.1); SODIUM LEVEL 138 MEQ/L (136-145); TOTAL IRON BINDING CAPACITY 324 UG/DL (250-450); TOTAL PROTEIN 7.6 GM/DL (6.4-8.2)
[2020-07-14 13:03] LABS: VITAMIN B12 LEVEL 574 PG/ML
[2020-07-14 13:04] LABS: FOLATE 5.7 NG/ML
[2020-07-14 14:55] LABS: HEMOGLOBIN A1c 4.9 %
== END ==
LOC: M LAB REF 11:47
PROVIDERS: ATTEND Physician Assistant
DX: D64.9 Anemia, unspecified (principal); R73.9 Hyperglycemia, unspecified; Z90.49 Acquired absence of other specified parts of digestive tract

== ENCOUNTER → 2021-02-03 | Outpatient (CLI) | payer MEDICAID | LOC: M WUC 10:32 | PROVIDERS: ATTEND Nurse Practitioner Pediatrics | DX: Z86.69 Personal history of other diseases of the nervous system and sense organs (principal); F63.81 Intermittent explosive disorder ==

== ENCOUNTER 2021-02-26 09:48 | Emergency (ER) | payer MEDICAID ==
--- OUTSIDE RECORDS SUMMARY | 2021-02-26 10:00 | CCD ---
Author Organization Unknown Address [address] [place] [address] Phone [phone] Care Team Providers Care Front Desk Team Member Name Role Phone JANENE CHAN [facility] 229 [phone] Allergies Code Code System Name Reaction Severity Status Onset 20360608 RxNorm Biaxin Active 09/09/2019 Hayfever Active 09/09/2019 Ragweed Active 09/09/2019 27717 RxNorm Seroquel Active 09/09/2019 Tetanus and Diphtheria Toxoids Active [id number] RxNorm Topamax Active Notes: TOPOMAX - Reaction: unable to re gulate body temp | TETANUS TOXIN - Reaction: swollen leg and red Medications Name Status Start Date Stop Date adapalene Completed 07/26/2020 adapalene 0.1 % topical cream APPLY TO THE AFFECTED AREA(S) BY TOPICAL ROUTE ONCE DAILY AT BEDTIME Active Not available benzoyl peroxide 2.5 % [...] by oral route. Active Not available Miralax Completed 09/28/2020 Miralax 17 gram/dose oral powder MIX 17 GRAM IN 8 OUNCES OF WATER UP TO 3 TIMES A DAY DIRECTED Active Not available Selsun Blue 1 % shampoo apply TO SCALP DAILY with bathing, RINSE AFTER application Active Not available sertraline 100 mg tablet Take 1 tablet every day by oral route. Active Not available Problems Name Status Onset Date Source Autistic Disorder Active 09/09/2019 History Epilepsy Active 09/09/2019 History Chronic Constipation Active 09/09/2019 History Acne Active 09/09/2019 History Procedure by Method Unknown 09/09/2019 History Disorder of Skin of Head Unknown 09/09/2019 History Impacted Tooth Unknown 01/28/2020 History Low Back Pain Active 06/02/2020 Procedures Date Name Performed by 05/31/2020 Gallbladder Surgery Information not avai lable 07/13/2020 Electrocardiogram [facility] [address] [place] [address] (Work Place) Results Lab Results Date Name Specimen Result Interpretation Description Value Range Status Address 07/19/2020 Electrocardiogram Rate & Rhythm [facility]: [address] [facility] Er Qrs [place] [facility]: [address] [facility] Er [facility]: [address] [facility] Er QRS Duration [place] in [place] Medical: [address] [facility] Er QT Interval [facility]: 238 [facility] Er 07/14/2020 CBC W/ Auto Diff Blood venous Normal White Blood C ount 5.9 10 4.0-10.0 10 [facility]: 83 0 [facility] [place] Blood venous Normal Red Blood Count 4.93 10 4.30- 6.10 10 [facility]: 830 [facility] [place] Blood venous Normal Hemoglobin 14.1 g/dL 13.5-17. 5 g/dL [facility]: 830 [facility] [place] Blood venous Normal Hematocrit 43.1 % 42.0-52.0 % [facility]: 830 [facility] [place] Blood venous Normal Mean Corpuscular Volume 87.4 fL 80.0-96.0 fL [facility]: 830 [facility] [place] Blood venous Normal Mean Corpuscular Hemoglob in 28.6 pg 27.0-33.0 pg [facility]: 830 [facility] [place] Blood venous Normal Mean Corpuscular HGB Conc 32.7 g/dL 32.0-36.5 g/dL [facility]: 830 [facility] [place] Blood venous Normal Red Cell Distribution Wid th 13.6 % 11.5-14.5 % [facility]: 830 [facility] [place] Blood venous Normal Platelet Count, Automated 256 10 150-450 10 [facility]: 830 [facility] [place] Blood venous Normal Neutrophils % 52.4 % 36.0-66. 0 % [facility]: [address] [place] [address] Blood venous Normal Lymph % 37.2 % 24.0-44.0 % [facility]: [address] [place] [address] Blood venous Normal Laurens % 6.7 % 2.0-8.0 % [facility]: [address] [place] [address] Blood venous Normal Eos % 2.9 % 0.0-3.0 % [facility]: [address] [place] [address] Blood venous Normal Baso % 0.5 % 0.0-1.0 % [facility]: [address] [place] [address] Blood venous Normal Immature Granulocyte % 0.3 % 0-3.0 % [facility]: [address] [place] [address] Blood venous Normal Nucleated Red Blood Cell % 0. 0 % 0-0 % [facility]: [address] [place] [address] Blood venous Normal Neutrophils # 3.1 10 1.5-8.5 10 [facility]: [address] [place] [address] Blood venous Normal Lymph # 2.2 10 1.5-5.0 10 [facility]: [address] [place] [address] Blood venous Normal Laurens # 0.4 10 0.0-0.8 10 [facility]: [address] [place] [address] Blood venous Normal Eos # 0.2 10 0.0-0.5 10 [facility]: [address] [place] [address] Blood venous Normal Baso # 0.0 10 0.0-0.2 10 [facility]: [address] [place] [address] 07/14/2020 CMP, Serum or Plasma Blood venous High Glu cose, Fasting 106 mg/dL 70-100 mg/dL [facility] nter: [address] [place] [address] Blood venous Normal Blood Urea Nitrogen 12 mg/dL 7-18 mg/dL [facility]: [address] [place] [address] Blood venous Normal Creatinine for GFR 0.97 mg/dL 0.70-1.30 mg/dL [facility]: 830 [facility] [place] Blood venous Normal Glomerular Filtration Rate > 60.0 >60 [facility]: 830 [facility] [place] Blood venous Normal Sodium Level 138 mEq/L 136-14 5 mEq/L [facility]: 830 [facility] [place] Blood venous Normal Potassium Serum 3.9 mEq/L 3.5 -5.1 mEq/L [facility]: 830 [facility] [place] Blood venous Normal Chloride Level 105 mEq/L 98-1 07 mEq/L [facility]: 830 [facility] [place] Blood venous Normal Carbon Dioxide Level 27 mEq/L 21-32 mEq/L [facility]: 830 [facility] [place] Blood venous Low Anion Gap 6 mEq/L 8-16 mEq/L [facility]: 830 [facility] [place] Blood venous Normal Calcium Level 9.3 mg/dL 8.5-1 0.1 mg/dL [facility]: 830 [facility] [place] Blood venous Normal AST/SGOT 30 U/L 7-37 U/L [facility]: 830 [facility] [place] Blood venous Normal ALT/SGPT 52 U/L 12-78 U/L [facility]: [address] [facility] [place] Blood venous Normal Alkaline Phosphatase 90 U/L 4 5-117 U/L [facility]: 830 [facility] [place] Blood venous Normal Bilirubin,total 0.5 mg/dL 0.2 -1.0 mg/dL [facility]: 830 [facility] [place] Blood venous Normal Total Protein 7.6 gm/dL 6.4-8 .2 gm/dL [facility]: 830 [facility] [place] Blood venous Normal Albumin 4.0 gm/dL 3.2-5.2 gm/ dL [facility]: [address] [facility] [place] Blood venous Normal Albumin/globulin Ratio 1.1 [facility]: [address] [place] [address] 07/14/2020 TIBC (Total Iron-binding Capacity), Serum Normal Iron (Fe) 85 ug/dL 65-175 ug/dL [facility] nter: 830 [facility] [place] Normal Total Iron Binding Capacity 324 ug/d L 250-450 ug/dL [facility]: [address] [facility] [place] Normal Percent Saturation 26.2 % 19.7-50.0 % [facility]: 830 [facility] [place] 07/14/2020 Vitamin B12 + Folate, Serum or Blood Blood venous Normal Vitamin B12 Level 574 pg/mL [facility]: [address] [facility] [place] Blood venous Normal Folate 5.7 NG/mL [facility]: 0 [facility] [place] 07/14/2020 Ferritin, Serum or Plasma Normal Ferritin 185 NG/mL 26-388 NG/mL [facility]: 83 0 [facility] [place] 07/14/2020 HbA1C (Hemoglobin a1C), Blood Blood venous Normal Hemoglobin a1C 4.9 % [facility]: [address] [facility] [place] Blood venous Normal Estimated Average Glucose 94 mg/dL 60-110 mg/dL [facility]: 830 [facility] [place] 06/19/2020 Cbc Normal White Blood Count 5.8 10 4.0-10. 0 10 [facility]: 0 [facility] [place] Low Red Blood Count 3.88 10 4.30-6.10 10 [facility]: 0 [facility] [place] Low Hemoglobin 10.9 g/dL 13.5-17.5 g/dL [facility]: 0 [facility] [place] Low Hematocrit 34.1 % 42.0-52.0 % [facility]: 830 [facility] [place] Normal Mean Corpuscular Volume 87.9 fL 80.0 -96.0 fL [facility]: 0 [facility] [place] Normal Mean Corpuscular Hemoglobin 28.1 pg 27.0-33.0 pg [facility]: 0 [facility] [place] Normal Mean Corpuscular HGB Conc 32.0 g/dL 32.0-36.5 g/dL [facility]: 8[address] [facility] [place] Normal Red Cell Distribution Width 13.4 % 1 1.5-14.5 % [facility]: 8[address] [facility] [place] Normal Platelet Count, Automated 211 10 150 -450 10 [facility]: 830 [facility] [place] Normal Nucleated Red Blood Cell % 0.0 % 0- 0 % [facility]: 830 [facility] [place] 06/19/2020 CMP, Serum or Plasma High Glucose, Fastin g 116 mg/dL 70-100 mg/dL [facility]: 83 0 [facility] [place] Normal Blood Urea Nitrogen 8 mg/dL 7-18 mg/ dL [facility]: 830 [facility] [place] Normal Creatinine for GFR 0.70 mg/dL 0.70-1 .30 mg/dL [facility]: 830 [facility] [place] Normal Glomerular Filtration Rate > 60.0 >6 0 [facility]: 830 [facility] [place] Normal Sodium Level 142 mEq/L 136-145 mEq/L [facility]: 830 [facility] [place] Normal Potassium Serum 4.5 mEq/L 3.5-5.1 mE q/L [facility]: [address] [facility] [place] High Chloride Level 109 mEq/L 98-107 mEq/ L [facility]: [address] [facility] [place] Normal Carbon Dioxide Level 25 mEq/L 21-32 mEq/L [facility]: 830 [facility] [place] Normal Anion Gap 8 mEq/L 8-16 mEq/L [facility]: 830 [facility] [place] Low Calcium Level 7.5 mg/dL 8.5-10.1 mg/ dL [facility]: 830 [facility] [place] Normal AST/SGOT 31 U/L 7-37 U/L [facility]: 830 [facility] [place] Normal ALT/SGPT 41 U/L 12-78 U/L [facility]: 8[address] [facility] [place] Normal Alkaline Phosphatase 100 U/L 45-117 U/L [facility]: [address] [facility] [place] Normal Bilirubin,total 0.6 mg/dL 0.2-1.0 mg /dL [facility]: 8[address] [facility] [place] Low Total Protein 5.4 gm/dL 6.4-8.2 gm/d L [facility]: 8[address] [facility] [place] Low Albumin 2.2 gm/dL 3.2-5.2 gm/dL Alessandra l [facility]: [address] [facility] [place] Normal Albumin/globulin Ratio 0.7 [facility]: 830 [facility] [place] 06/19/2020 Phosphorus Level Normal Phosphorus Level 2 .5 mg/dL 2.5-4.9 mg/dL [facility]: 83 0 [facility] [place] 06/19/2020 Magnesium, Serum or Plasma Normal Magnesium Level 2.1 mg/dL 1.8-2.4 mg/dL [facility]: 83 0 [facility] [place] 06/18/2020 CMP, Serum or Plasma Normal Glucose, Fastin g 82 mg/dL 70-100 mg/dL [facility]: 83 0 [facility] [place] Normal Blood Urea Nitrogen 8 mg/dL 7-18 mg/ dL [facility]: 0 [facility] [place] Normal Creatinine for GFR 0.76 mg/dL 0.70-1 .30 mg/dL [facility]: 0 [facility] [place] Normal Glomerular Filtration Rate > 60.0 >6 0 [facility]: 830 [facility] [place] Normal Sodium Level 140 mEq/L 136-145 mEq/L [facility]: 0 [facility] [place] Normal Potassium Serum 4.0 mEq/L 3.5-5.1 mE q/L [facility]: 0 [facility] [place] High Chloride Level 108 mEq/L 98-107 mEq/ L [facility]: 0 [facility] [place] Normal Carbon Dioxide Level 25 mEq/L 21-32 mEq/L [facility]: 0 [facility] [place] Low Anion Gap 7 mEq/L 8-16 mEq/L [facility]: [address] [place] [address] Low Calcium Level 7.4 mg/dL 8.5-10.1 mg/ dL [facility]: 830 [facility] [place] Normal AST/SGOT 33 U/L 7-37 U/L [facility]: 830 [facility] [place] Normal ALT/SGPT 49 U/L 12-78 U/L [facility]: 830 [facility] [place] Normal Alkaline Phosphatase 98 U/L 45-117 U /L [facility]: [address] [place] [address] Normal Bilirubin,total 0.8 mg/dL 0.2-1.0 mg /dL [facility]: [address] [place] [address] Low Total Protein 5.2 gm/dL 6.4-8.2 gm/d L [facility]: [address] [place] [address] Low Albumin 2.2 gm/dL 3.2-5.2 gm/dL [facility]: 830 [facility] [place] Normal Albumin/globulin Ratio 0.7 [facility]: [address] [place] [address] 06/18/2020 Lipase, Serum or Plasma Normal Lipase 327 U/L 73-393 U/L [facility]: [address] [place] [address] 06/18/2020 CBC W/ Auto Diff Normal White Blood Count 5.6 10 4.0-10.0 10 [facility]: [address] [place] [address] Low Red Blood Count 3.53 10 4.30-6.10 10 [facility]: [address] [place] [address] Low Hemoglobin 10.1 g/dL 13.5-17.5 g/dL [facility]: [address] [place] [address] Low Hematocrit 31.4 % 42.0-52.0 % [facility]: 0 [facility] [place] Normal Mean Corpuscular Volume 89.0 fL 80.0 -96.0 fL [facility]: 830 [facility] [place] Normal Mean Corpuscular Hemoglobin 28.6 pg 27.0-33.0 pg Final [facility]: 830 [facility] [place] Normal Mean Corpuscular HGB Conc 32.2 g/dL 32.0-36.5 g/dL [facility]: 830 [facility] [place] Normal Red Cell Distribution Width 13.6 % 1 1.5-14.5 % [facility]: [address] [facility] [place] Normal Platelet Count, Automated 175 10 150 -450 10 [facility]: 830 [facility] [place] Normal Nucleated Red Blood Cell % 0.0 % 0- 0 % [facility]: 8[address] [facility] [place] 06/18/2020 Differential Panel, Blood High Neutrophils 7 6 % 28-66 % [facility]: 830 [facility] [place] Normal Lymphocytes 17 % 16-44 % [facility]: [address] [facility] [place] Normal Monocytes 5 % 0-5 % [facility]: [address] [facility] [place] Normal Basophils 1 % 0-1 % [facility]: [address] [facility] [place] Normal Atypical Lymph 1 % 0-5 % [facility]: 8[address] [facility] [place] Normal RBC Morphology normal Final [facility]: 830 [facility] [place] 06/18/2020 Platelet Count, Estimate, Blood Normal Platelet Estimate normal normal [facility]ter: 830 [facility] [place] 06/18/2020 Respiratory Virus Panel NASOPHARYNX No observ ation recorded. [facility]: 830 [facility] [place] 06/17/2020 Cbc High White Blood Count 11.3 10 4.0-10 .0 10 [facility]: 830 [facility] [place] Low Red Blood Count 3.88 10 4.30-6.10 10 [facility]: 830 [facility] [place] Low Hemoglobin 11.0 g/dL 13.5-17.5 g/dL [facility]: 0 [facility] [place] Low Hematocrit 34.6 % 42.0-52.0 % [facility]: 0 [facility] [place] Normal Mean Corpuscular Volume 89.2 fL 80.0 -96.0 fL [facility]: 830 [facility] [place] Normal Mean Corpuscular Hemoglobin 28.4 pg 27.0-33.0 pg [facility]: 0 [facility] [place] Low Mean Corpuscular HGB Conc 31.8 g/dL 32.0-36.5 g/dL [facility]: 0 [facility] [place] Normal Red Cell Distribution Width 13.7 % 1 1.5-14.5 % [facility]: [address] [place] [address] Normal Platelet Count, Automated 256 10 150 -450 10 [facility]: 0 [facility] [place] Normal Nucleated Red Blood Cell % 0.0 % 0- 0 % [facility]: 0 [facility] [place] 06/17/2020 CMP, Serum or Plasma Normal Glucose, Fastin g 99 mg/dL 70-100 mg/dL [facility]: 83 0 [facility] [place] D Blood Urea Nitrogen 13 mg/dL 7-18 mg /dL [facility]: 0 [facility] [place] Normal Creatinine for GFR 1.12 mg/dL 0.70-1 .30 mg/dL [facility]: [address] [place] [address] Normal Glomerular Filtration Rate > 60.0 >6 0 [facility]: 0 [facility] [place] Normal Sodium Level 139 mEq/L 136-145 mEq/L [facility]: 0 [facility] [place] Normal Potassium Serum 4.0 mEq/L 3.5-5.1 mE q/L [facility]: 0 [facility] [place] Normal Chloride Level 107 mEq/L 98-107 mEq/ L [facility]: 0 [facility] [place] Normal Carbon Dioxide Level 25 mEq/L 21-32 mEq/L [facility]: 0 [facility] [place] Low Anion Gap 7 mEq/L 8-16 mEq/L [facility]: 8[address] [facility] [place] Panic Low Calcium Level 7.2 mg/dL 8.5-10.1 mg/dL [facility]: 8[address] [facility] [place] High AST/SGOT 51 U/L 7-37 U/L [facility]: 8[address] [facility] [place] Normal ALT/SGPT 63 U/L 12-78 U/L [facility]: 8[address] [facility] [place] Normal Alkaline Phosphatase 98 U/L 45-117 U /L [facility]: 8[address] [facility] [place] Normal Bilirubin,total 0.9 mg/dL 0.2-1.0 mg /dL [facility]: 0 [facility] [place] Panic Low Total Protein 5.3 gm/dL 6.4-8.2 g m/dL [facility]: 0 [facility] [place] Panic Low Albumin 2.3 gm/dL 3.2-5.2 gm/dL [facility]: 8[address] [facility] [place] Normal Albumin/globulin Ratio 0.8 [facility]: 0 [facility] [place] 06/17/2020 Phosphorus Level Normal Phosphorus Level 2 .8 mg/dL 2.5-4.9 mg/dL [facility]: 83 0 [facility] [place] 06/17/2020 Magnesium, Serum or Plasma Low Magnesium Level 1.7 mg/dL 1.8- 2.4 mg/dL [facility]: 83 0 [facility] [place] 06/16/2020 CBC W/ Auto Diff High White Blood Count 18.6 10 4.0-10.0 10 [facility]: 0 [facility] [place] Normal Red Blood Count 4.43 10 4.30-6.10 10 [facility]: 0 [facility] [place] Low Hemoglobin 12.9 g/dL 13.5-17.5 g/dL [facility]: 0 [facility] [place] Low Hematocrit 38.9 % 42.0-52.0 % [facility]: 830 [facility] [place] Normal Mean Corpuscular Volume 87.8 fL 80.0 -96.0 fL [facility]: [address] [place] [address] Normal Mean Corpuscular Hemoglobin 29.1 pg 27.0-33.0 pg [facility]: [address] [place] [address] Normal Mean Corpuscular HGB Conc 33.2 g/dL 32.0-36.5 g/dL [facility]: 830 [facility] [place] Normal Red Cell Distribution Width 13.3 % 1 1.5-14.5 % [facility]: [address] [place] [address] Normal Platelet Count, Automated 347 10 150 -450 10 [facility]: 830 [facility] [place] High Neutrophils % 93.0 % 36.0-66.0 % [facility]: 8[address] [facility] [place] Low Lymph % 1.7 % 24.0-44.0 % [facility]: 8[address] [facility] [place] Normal Laurens % 4.0 % 2.0-8.0 % [facility]: 8[address] [facility] [place] Normal Eos % 0.0 % 0.0-3.0 % [facility]: 0 [facility] [place] Normal Baso % 0.2 % 0.0-1.0 % [facility]: 830 [facility] [place] Normal Immature Granulocyte % 1.1 % 0-3.0 % [facility]: 830 [facility] [place] Normal Nucleated Red Blood Cell % 0.0 % 0- 0 % [facility]: 8[address] [facility] [place] High Neutrophils # 17.3 10 1.5-8.5 10 [facility]: 8[address] [facility] [place] Low Lymph # 0.3 10 1.5-5.0 10 [facility]: 8[address] [facility] [place] Normal Laurens # 0.8 10 0.0-0.8 10 [facility]: 830 [facility] [place] Normal Eos # 0.0 10 0.0-0.5 10 [facility]: 8[address] [facility] [place] Normal Baso # 0.0 10 0.0-0.2 10 [facility]: 830 [facility] [place] 06/16/2020 PT/INR High Prothrombin Time 15.5 secon ds 12.5-14.3 seconds [facility]: 830 [facility] [place] Normal Inr 1.21 [facility]: 830 [facility] [place] 06/16/2020 Hepatic Function Panel, Serum High AST/SG OT 51 U/L 7-37 U/L [facility]: 830 [facility] [place] Normal ALT/SGPT 74 U/L 12-78 U/L [facility]: 830 [facility] [place] Normal Alkaline Phosphatase 116 U/L 45-117 U/L [facility]: 830 [facility] [place] High Bilirubin,total 1.1 mg/dL 0.2-1.0 mg /dL [facility]: 830 [facility] [place] High Bilirubin,direct 0.8 mg/dL 0.0-0.2 m g/dL [facility]: 0 [facility] [place] Normal Total Protein 6.7 gm/dL 6.4-8.2 gm/d L [facility]: 0 [facility] [place] Low Albumin 3.1 gm/dL 3.2-5.2 gm/dL Alessandra l [facility]: 830 [facility] [place] Normal Albumin/globulin Ratio 0.9 [facility]: 830 [facility] [place] 06/16/2020 BMP, Serum or Plasma High Glucose, Fastin g 112 mg/dL 70-100 mg/dL [facility]: 83 0 [facility] [place] Normal Blood Urea Nitrogen 8 mg/dL 7-18 mg/ dL [facility]: 0 [facility] [place] High Creatinine for GFR 1.32 mg/dL 0.70-1 .30 mg/dL [facility]: [address] [place] [address] Normal Glomerular Filtration Rate > 60.0 >6 0 [facility]: [address] [place] [address] Normal Sodium Level 136 mEq/L 136-145 mEq/L [facility]: [address] [place] [address] Normal Potassium Serum 4.0 mEq/L 3.5-5.1 mE q/L [facility]: [address] [place] [address] Normal Chloride Level 102 mEq/L 98-107 mEq/ L [facility]: [address] [place] [address] Normal Carbon Dioxide Level 27 mEq/L 21-32 mEq/L [facility]: [address] [place] [address] Low Anion Gap 7 mEq/L 8-16 mEq/L [facility]: [address] [place] [address] Normal Calcium Level 8.9 mg/dL 8.5-10.1 mg/ dL [facility]: [address] [place] [address] 06/16/2020 Lipase, Serum or Plasma High Lipase 450 U/L 73-393 U/L [facility]: [address] [place] [address] 06/04/2020 CBC W/ Auto Diff High White Blood Count 12.9 10 4.0-10.0 10 [facility]: [address] [place] [address] Normal Red Blood Count 4.57 10 4.30-6.10 10 [facility]: [address] [place] [address] Low Hemoglobin 13.0 g/dL 13.5-17.5 g/dL [facility]: [address] [place] [address] Low Hematocrit 39.9 % 42.0-52.0 % [facility]: [address] [place] [address] Normal Mean Corpuscular Volume 87.3 fL 80.0 -96.0 fL [facility] Center: [address] [place] [address] Normal Mean Corpuscular Hemoglobin 28.4 pg 27.0-33.0 pg [facility]: [address] [place] [address] Normal Mean Corpuscular HGB Conc 32.6 g/dL 32.0-36.5 g/dL [facility]: [address] [facility] [place] Normal Red Cell Distribution Width 13.9 % 1 1.5-14.5 % [facility]: [address] [facility] [place] Normal Platelet Count, Automated 262 10 150 -450 10 [facility]: [address] [facility] [place] High Neutrophils % 73.6 % 36.0-66.0 % [facility]: [address] [facility] [place] Low Lymph % 10.7 % 24.0-44.0 % Final [facility]: [address] [facility] [place] High Laurens % 12.9 % 0.0-5.0 % Final [facility]: [address] [facility] [place] Normal Eos % 1.8 % 0.0-3.0 % [facility]: [address] [facility] [place] Normal Baso % 0.2 % 0.0-1.0 % Final [facility]: [address] [facility] [place] Normal Immature Granulocyte % 0.8 % 0-3.0 % [facility]: 8[address] [facility] [place] Normal Nucleated Red Blood Cell % 0.0 % 0- 0 % [facility]: [address] [facility] [place] High Neutrophils # 9.5 10 1.5-8.5 10 [facility]: [address] [facility] [place] Low Lymph # 1.4 10 1.5-5.0 10 [facility]: [address] [facility] [place] High [place]rens # 1.7 10 0.0-0.8 10 [facility]: [address] [facility] [place] Normal Eos # 0.2 10 0.0-0.5 10 [facility]: [address] [facility] [place] Normal Baso # 0.0 10 0.0-0.2 10 [facility]: 830 [facility] [place] 06/04/2020 CMP, Serum or Plasma Normal Glucose, Fastin g 82 mg/dL 70-100 mg/dL [facility]: 83 0 [facility] [place] Normal Blood Urea Nitrogen 15 mg/dL 7-18 mg /dL [facility]: 0 [facility] [place] Normal Creatinine for GFR 0.81 mg/dL 0.70-1 .30 mg/dL [facility]: 0 [facility] [place] Normal Glomerular Filtration Rate > 60.0 >6 0 [facility]: [address] [facility] [place] Normal Sodium Level 140 mEq/L 136-145 mEq/L [facility]: 0 [facility] [place] Normal Potassium Serum 4.0 mEq/L 3.5-5.1 mE q/L [facility]: [address] [facility] [place] Normal Chloride Level 103 mEq/L 98-107 mEq/ L [facility]: 0 [facility] [place] Normal Carbon Dioxide Level 29 mEq/L 21-32 mEq/L [facility]: 0 [facility] [place] Normal Anion Gap 8 mEq/L 8-16 mEq/L [facility]: 0 [facility] [place] Normal Calcium Level 8.6 mg/dL 8.5-10.1 mg/ dL [facility]: 0 [facility] [place] Normal AST/SGOT 27 U/L 7-37 U/L [facility]: 0 [facility] [place] Normal ALT/SGPT 77 U/L 12-78 U/L [facility]: 0 [facility] [place] High Alkaline Phosphatase 139 U/L 45-117 U/L [facility]: 0 [facility] [place] High Bilirubin,total 2.7 mg/dL 0.2-1.0 mg /dL [facility]: 0 [facility] [place] Normal Total Protein 6.4 gm/dL 6.4-8.2 gm/d L [facility]: 0 [facility] [place] Low Albumin 2.9 gm/dL 3.2-5.2 gm/dL Alessandra l [facility]: 0 [facility] [place] Normal Albumin/globulin Ratio 0.8 [facility]: [address] [place] [address] 06/04/2020 Lipase, Serum or Plasma Normal Lipase 281 U/L 73-393 U/L [facility]: 0 [facility] [place] 06/03/2020 CBC W/ Auto Diff High White Blood Count 15.9 10 4.0-10.0 10 [facility]: 830 [facility] [place] Normal Red Blood Count 4.85 10 4.30-6.10 10 [facility]: 830 [facility] [place] Normal Hemoglobin 14.2 g/dL 13.5-17.5 g/dL [facility]: [address] [place] [address] Low Hematocrit 41.4 % 42.0-52.0 % [facility]: [address] [place] [address] Normal Mean Corpuscular Volume 85.4 fL 80.0 -96.0 fL [facility]: [address] [place] [address] Normal Mean Corpuscular Hemoglobin 29.3 pg 27.0-33.0 pg [facility]: [address] [place] [address] Normal Mean Corpuscular HGB Conc 34.3 g/dL 32.0-36.5 g/dL [facility]: 0 [facility] [place] Normal Red Cell Distribution Width 13.5 % 1 1.5-14.5 % [facility]: [address] [place] [address] Normal Platelet Count, Automated 285 10 150 -450 10 [facility]: 0 [facility] [place] High Neutrophils % 76.9 % 36.0-66.0 % [facility]: [address] [facility] [place] Low Lymph % 8.0 % 24.0-44.0 % [facility]: 8[address] [facility] [place] High [place] % 13.0 % 0.0-5.0 % [facility]: [address] [facility] [place] Normal Eos % 0.8 % 0.0-3.0 % [facility]: 8[address] [facility] [place] Normal Baso % 0.2 % 0.0-1.0 % [facility]: 830 [facility] [place] Normal Immature Granulocyte % 1.1 % 0-3.0 % [facility]: 830 [facility] [place] Normal Nucleated Red Blood Cell % 0.0 % 0- 0 % [facility]: 830 [facility] [place] High Neutrophils # 12.2 10 1.5-8.5 10 [facility]: 830 [facility] [place] Low Lymph # 1.3 10 1.5-5.0 10 [facility]: 8[address] [facility] [place] High Laurens # 2.1 10 0.0-0.8 10 [facility]: 830 [facility] [place] Normal Eos # 0.1 10 0.0-0.5 10 [facility]: [address] [facility] [place] Normal Baso # 0.0 10 0.0-0.2 10 [facility]: 0 [facility] [place] 06/03/2020 Lactic Acid, Serum or Plasma Normal Lactic Acid Sepsis Protocol 0.9 mmol/L 0.4-2.0 mmol/L [facility] Center: [address] [place] [address] 06/03/2020 Hepatic Function Panel, Serum High AST/SG OT 56 U/L 7-37 U/L [facility]: 0 [facility] [place] High ALT/SGPT 113 U/L 12-78 U/L [facility]: 0 [facility] [place] High Alkaline Phosphatase 160 U/L 45-117 U/L [facility]: 0 [facility] [place] Dh Bilirubin,total 4.7 mg/dL 0.2-1.0 mg /dL [facility]: [address] [place] [address] High Bilirubin,direct 3.0 mg/dL 0.0-0.2 m g/dL [facility]: 0 [facility] [place] Normal Total Protein 6.9 gm/dL 6.4-8.2 gm/d L [facility]: 0 [facility] [place] Normal Albumin 3.2 gm/dL 3.2-5.2 gm/dL Alessandra l [facility]: 830 [facility] [place] Normal Albumin/globulin Ratio 0.9 [facility]: 0 [facility] [place] 06/03/2020 BMP, Serum or Plasma Normal Glucose, Fastin g 96 mg/dL 70-100 mg/dL [facility]: 83 0 [facility] [place] Normal Blood Urea Nitrogen 13 mg/dL 7-18 mg /dL [facility]: 0 [facility] [place] Normal Creatinine for GFR 0.83 mg/dL 0.70-1 .30 mg/dL [facility]: 0 [facility] [place] Normal Glomerular Filtration Rate > 60.0 >6 0 [facility]: 0 [facility] [place] Low Sodium Level 135 mEq/L 136-145 mEq/L [facility]: 0 [facility] [place] Normal Potassium Serum 3.9 mEq/L 3.5-5.1 mE q/L [facility]: 830 [facility] [place] Normal Chloride Level 101 mEq/L 98-107 mEq/ L [facility]: 0 [facility] [place] Normal Carbon Dioxide Level 26 mEq/L 21-32 mEq/L [facility]: 0 [facility] [place] Normal Anion Gap 8 mEq/L 8-16 mEq/L [facility]: 0 [facility] [place] Normal Calcium Level 8.5 mg/dL 8.5-10.1 mg/ dL [facility]: [address] [facility] [place] 06/03/2020 Lipase, Serum or Plasma Normal Lipase 341 U/L 73-393 U/L [facility]: 0 [facility] [place] 06/03/2020 SARS CoV 2 RNA (COVID-19), QL, clinical care manager-PCR, Respirat ory Specimen ABNORMAL Sars Covid-19 Amplification positive negative [facility]: [address] [place] [address] 06/03/2020 Culture, Blood BLOOD No observation recorded. [facility]: [address] [place] [address] 06/03/2020 Culture, Blood BLOOD No observation recorded. [facility]: [address] [place] [address] 06/02/2020 CBC W/ Auto Diff Blood venous High White Blood C ount 16.7 10 4.0-10.0 10 [facility]: 83 0 [facility] [place] Blood venous Normal Red Blood Count 5.52 10 4.30- 6.10 10 [facility]: 830 [facility] [place] Blood venous Normal Hemoglobin 15.7 g/dL 13.5-17. 5 g/dL [facility]: [address] [place] [address] Blood venous Normal Hematocrit 47.8 % 42.0-52.0 % [facility]: [address] [place] [address] Blood venous Normal Mean Corpuscular Volume 86.6 fL 80.0-96.0 fL [facility]: [address] [place] [address] Blood venous Normal Mean Corpuscular Hemoglob in 28.4 pg 27.0-33.0 pg [facility]: [address] [place] [address] Blood venous Normal Mean Corpuscular HGB Conc 32.8 g/dL 32.0-36.5 g/dL [facility]: [address] [place] [address] Blood venous Normal Red Cell Distribution Wid th 13.5 % 11.5-14.5 % [facility]: [address] [place] [address] Blood venous Normal Platelet Count, Automated 286 10 150-450 10 [facility]: 0 [facility] [place] Blood venous High Neutrophils % 76.9 % 36.0-66. 0 % [facility]: [address] [place] [address] Blood venous Low Lymph % 9.5 % 24.0-44.0 % [facility]: [address] [place] [address] Blood venous High Lau[place] % 12.3 % 0.0-5.0 % [facility]: [address] [place] [address] Blood venous Normal Eos % 0.5 % 0.0-3.0 % [facility]: [address] [place] [address] Blood venous Normal Baso % 0.1 % 0.0-1.0 % [facility]: [address] [place] [address] Blood venous Normal Immature Granulocyte % 0.7 % 0-3.0 % [facility]: [address] [place] [address] Blood venous Normal Nucleated Red Blood Cell % 0. 0 % 0-0 % [facility]: [address] [place] [address] Blood venous High Neutrophils # 12.8 10 1.5-8.5 10 [facility]: [address] [place] [address] Blood venous Normal Lymph # 1.6 10 1.5-5.0 10 [facility]: [address] [place] [address] Blood venous High [place] # 2.1 10 0.0-0.8 10 [facility]: [address] [place] [address] Blood venous Normal Eos # 0.1 10 0.0-0.5 10 [facility]: [address] [place] [address] Blood venous Normal Baso # 0.0 10 0.0-0.2 10 [facility]: [address] [place] [address] 06/02/2020 CMP, Serum or Plasma Blood venous Normal Glu cose, Fasting 76 mg/dL 70-100 mg/dL [facility] nter: [address] [place] [address] Blood venous Normal Blood Urea Nitrogen 16 mg/dL 7-18 mg/dL [facility]: [address] [place] [address] Blood venous Normal Creatinine for GFR 1.05 mg/dL 0.70-1.30 mg/dL [facility]: [address] [place] [address] Blood venous Normal Glomerular Filtration Rate > 60.0 >60 [facility]: [address] [place] [address] Blood venous Normal Sodium Level 137 mEq/L 136-14 5 mEq/L [facility]: [address] [place] [address] Blood venous Normal Potassium Serum 4.0 mEq/L 3.5 -5.1 mEq/L [facility]: [address] [place] [address] Blood venous Normal Chloride Level 101 mEq/L 98-1 07 mEq/L [facility]: [address] [place], [place] [id number] Blood venous Normal Carbon Dioxide Level 28 mEq/L 21-32 mEq/L [facility]: [address] [place] [address] Blood venous Normal Anion Gap 8 mEq/L 8-16 mEq/L [facility]: [address] [place] [address] Blood venous Normal Calcium Level 9.0 mg/dL 8.5-1 0.1 mg/dL [facility]: [address] [place] [address] Blood venous High AST/SGOT 67 U/L 7-37 U/L Alessandra l [facility]: [address] [place] [address] Blood venous High ALT/SGPT 159 U/L 12-78 U/L Fi nal [facility]: [address] [place] [address] Blood venous High Alkaline Phosphatase 178 U/L 45-117 U/L [facility]: [address] [place] [address] Blood venous High Bilirubin,total 9.9 mg/dL 0.2 -1.0 mg/dL [facility]: [address] [place] [address] Blood venous Normal Total Protein 7.3 gm/dL 6.4-8 .2 gm/dL [facility]: [address] [place] [address] Blood venous Normal Albumin 3.8 gm/dL 3.2-5.2 gm/ dL [facility]: [address] [place] [address] Blood venous Normal Albumin/globulin Ratio 1.1 [facility]: [address] [place] [address] Past Encounters 01/17/2021 Impacted Cerumen in Right Ear Marco A Mcelroy RPA-C: [address] [id number], Ph. 09/28/2020 Adult Health Examination; Autistic Disorder; Epilepsy; Obesity; Body Mass Index 30+ - Obesity Marco A Mcelroy RPA-C: [address] [facility] [address] [address], Ph. 08/03/2020 Autistic Disorder; Epilepsy Ailyn Falcon MD: [address] [facility] [address] [address], Ph. 07/14/2020 Anemia; Hyperglycemia; History of Cholecystectomy Garfield Julian MD: [address] [place] [address], Ph. 07/01/2020 History of Cholecystectomy; Anemia; Hyperglycemia Letty Wiley PA-C: [address] [facility] [address], [place] [address], Ph. 06/02/2020 Jaundice; Chronic Constipation; Low Back Pain Garfield Julian MD: [address] [facility], [facility] [address], [place] [address], Ph. Social History Tobacco Smoking Status Never Smoker Vaccine List None recorded. Plan of Care Reminders Provider Appointments None recorded. Lab None recorded. Referral None recorded. Procedures None recorded. Surgeries None recorded. Imaging None recorded. Vitals 01/17/2021 10:10AM SAME DAY 20 Height Weight BMI Blood Pressure 76 in 294 lbs 35.8 kg/m2 105/65 mm[Hg] 09/28/2020 01:20PM ANNUAL EXAM Height Weight BMI Blood Pressure 76 in 287 lbs 8 oz 35 kg/m2 104/71 mm[Hg] 08/03/2020 09:40AM ESTABLISHED [id number] Height Weight BMI Blood Pressure 76 in 271 lbs 6.4 oz 33 kg/m2 119/74 mm[Hg ] 07/01/2020 10:30AM ESTABLISHED [id number] Height Weight BMI Blood Pressure 76 in 256 lbs 6.4 oz 31.2 kg/m2 109/72 mm[Hg ] 06/02/2020 10:20AM ESTABLISHED [id number] Height Weight BMI Blood Pressure 76 in 235 lbs 28.6 kg/m2 123/78 mm[Hg] 09/09/2019 Height Weight BMI Blood Pressure 76 in 270 lbs 32.98 kg/m2 116/80 mm[Hg]"
--- OUTSIDE RECORDS SUMMARY | 2021-02-26 10:03 | CCD ---
Author Author [facility] Address Unknown Phone Unavailable Care Team Providers Care Police Booking Officer Name Role Phone Stefano Julian MD Unavailable Unavailable Stefano Julian [...] MD Unavailable Unavailable JulianStefano MD Unavailable Unavailable Julian, Stefano Merrill MD Unavailable Unavailable Julian, Stefano Merrill MD Unavailable Unavailable Julian, Stefano Merrill MD Unavailable Unavailable Julian, Stefano Merrill MD Unavailable Unavailable Julian, Stefano Merrill MD Unavailable Unavailable Julian, Stefano Merrill MD Unavailable Unavailable Julian, Stefano Merrill MD Unavailable Unavailable Julian, Stefano Merrill MD Unavailable Unavailable Stefano Julian MD Unavailable Unavailable Julian, Stefano Merrill MD Unavailable Unavailable Julian, Stefano Merrill MD Unavailable Unavailable Julian, Stefano Merrill MD Unavailable Unavailable Julian, Stefano Merrill MD Unavailable Unavailable Julian, Stefano Merrill MD Unavailable Unavailable Julian, Stefano Merrill MD Unavailable Unavailable Julian, Stefano Merrill MD Unavailable Unavailable Julian, Stefano Merrill MD Unavailable Unavailable Julian, Stefano Merrill MD Unavailable Unavailable Julian, Stefano Merrill MD Unavailable Unavailable Julian, Stefano Merrill MD Unavailable Unavailable Julian, Stefano Merrill MD Unavailable Unavailable Julian, Stefano Merrill MD Unavailable Unavailable Julian, Stefano Merrill MD Unavailable Unavailable Julian, Stefano Merrill MD Unavailable Unavailable Julian, Steafno Merrill MD Unavailable Unavailable Iesha, Stefano Merrill MD Unavailable Unavailable Iesha, Stefano Merrill MD Unavailable Unavailable Julian, Stefano Merrill MD Unavailable Unavailable Julian, Stefano Merrill MD Unavailable Unavailable Julian, Stefano Merrill MD Unavailable Unavailable Julian, Stefano Merrill MD Unavailable Unavailable Julian, Stefano Merrill MD Unavailable Unavailable Julian, Stefano Merrill MD Unavailable Unavailable Julian, Stefano Merrill MD Unavailable Unavailable JulianStefano MD Unavailable Unavailable Julian, Stefano Merrill MD Unavailable Unavailable Julian, Stefano Merrill MD Unavailable Unavailable Julian, Stefano Merrill MD Unavailable Unavailable Julian, Stefano Merrill MD Unavailable Unavailable Julian, Stefano Merrill MD Unavailable Unavailable Julian, Stefano Merrill MD Unavailable Unavailable Julian, Stefano Merrill MD Unavailable Unavailable Stefano Julian MD Unavailable Unavailable Stefano Julian MD Unavailable Unavailable Stefano Julian MD Unavailable Unavailable Stefano Julian MD Unavailable Unavailable Stefano Julian MD Unavailable Unavailable JulianStefano MD Unavailable Unavailable JulianStefano MD Unavailable Unavailable JulianStefano MD Unavailable Unavailable PATTERSON, EMILY MARCO A RPA-C [...] PATTERSON, EMILY MARCO A RPA-C Unavailable Unavailable REINDL, SU MÉNDEZ Unavailable Unavailable REINDL, SU MÉNDEZ Unavailable Unavailable REINDL, SU MÉNDEZ Unavailable Unavailable REINDL, SU MÉNDEZ Unavailable Unavailable REINDL, SU MÉNDEZ Unavailable Unavailable REINDL, SU MÉNDEZ Unavailable Unavailable REINDL, SU MÉNDEZ Unavailable Unavailable REINDL, SU MÉNDEZ Unavailable Unavailable REINDL, SU MÉNDEZ Unavailable Unavailable REINDL, SU MÉNDEZ Unavailable Unavailable REINDL, SU MÉNDEZ Unavailable Unavailable REINDL, SU MÉNDEZ Unavailable Unavailable REINDL, SU MÉNDEZ Unavailable Unavailable REINDL, SU MÉNDEZ Unavailable Unavailable REINDL, SU MÉNDEZ Unavailable Unavailable REINDL, SU MÉNDEZ Unavailable Unavailable REINDL, SU MÉNDEZ Unavailable Unavailable REINDL, SU MÉNDEZ Unavailable Unavailable REINDL, SU MÉNDEZ Unavailable Unavailable REINDL, SU MÉNDEZ Unavailable Unavailable REINDL, SU MÉNDEZ Unavailable Unavailable REINDL, SU MÉNDEZ Unavailable Unavailable REINDL, US MÉNDEZ Unavailable Unavailable REINDL, SU MÉNDEZ Unavailable Unavailable REINDL, SU MÉNDEZ Unavailable Unavailable REINDL, US MÉNDEZ Unavailable Unavailable REINDL, SU MÉNDEZ Unavailable Unavailable REINDL, SU MÉNDEZ Unavailable Unavailable REINDL, SU MÉNDEZ Unavailable Unavailable REINDL, SU MÉNDEZ Unavailable Unavailable REINDL, SU MÉNDEZ Unavailable Unavailable REINDL, SU MÉNDEZ Unavailable Unavailable REINDL, SU MÉNDEZ Unavailable Unavailable REINDL, SU MÉNDEZ Unavailable Unavailable REINDL, SU MÉNDEZ Unavailable Unavailable REINDL, SU MÉNDEZ Unavailable Unavailable REINDL, SU MÉNDEZ Unavailable Unavailable REINDL, SU MÉNDEZ Unavailable Unavailable REINDL, SU MÉNDEZ Unavailable Unavailable REINDL, SU MÉNDEZ Unavailable Unavailable REINDL, SU MÉNDEZ Unavailable Unavailable REINDL, SU MÉNDEZ Unavailable Unavailable Terrie, Tawanna Unavailable Unavailable Terrie, Tawanna Unavailable Unavailable Terrie, Tawanna Unavailable Unavailable Terrie, Tawanna Unavailable Unavailable Terrie, Tawanna Unavailable Unavailable Terrie, Tawanna Unavailable Unavailable Terrie, Tawanna Unavailable Unavailable Terrie, Tawanna Unavailable Unavailable Terrie, Tawanna Unavailable Unavailable Terrie, Tawanna Unavailable Unavailable Terrie, Tawanna Unavailable Unavailable Terrie, Tawanna Unavailable Unavailable Terrie, Tawanna Unavailable Unavailable Terrie, Tawanna Unavailable Unavailable Terrie, Tawanna Unavailable Unavailable Terrie, Tawanna Unavailable Unavailable Terrie, Tawanna Unavailable Unavailable Terrie, Tawanna Unavailable Unavailable Terrie, Tawanna Unavailable Unavailable Terrie, Tawanna Unavailable Unavailable Terrie, Tawanna Unavailable Unavailable Terrie, Tawanna Unavailable Unavailable Terrie, Tawanna Unavailable Unavailable Terrie, Tawanna Unavailable Unavailable Terrie, Tawanna Unavailable Unavailable Terrie, Tawanna Unavailable Unavailable Taniya PRICE MD Unavailable Unavailable Taniya PRICE MD Unavailable Unavailable Taniya PRICE MD Unavailable Unavailable Taniya PRICE MD Unavailable Unavailable Taniya PRICE MD Unavailable Unavailable Taniya PRICE MD Unavailable Unavailable Taniya PRICE MD Unavailable Unavailable Taniya PRICE MD Unavailable Unavailable Taniya PRICE MD Unavailable Unavailable Taniya PRICE MD Unavailable Unavailable Taniya PRICE MD Unavailable Unavailable Taniya PRICE MD Unavailable Unavailable Taniya PRICE MD Unavailable Unavailable DEE, O AGUILAR MÉNDEZ Unavailable Unavailable DEE, O AGUILAR MÉNDEZ Unavailable Unavailable DEE, O AGUILAR MÉNDEZ Unavailable Unavailable DEE, O AGUILAR MÉNDEZ Unavailable Unavailable DEE, O AGUILAR MÉNDEZ Unavailable Unavailable DEE, O AGUILAR MD Unavailable Unavailable DEE, O AGUILAR MD Unavailable Unavailable DEE, O AGUILAR MD Unavailable Unavailable DEE, O AGUILAR MD Unavailable Unavailable DEE, O AGUILAR MD Unavailable Unavailable DEE, O AGUILAR MD Unavailable Unavailable DEE, O AGUILAR MD Unavailable Unavailable DEE, O AGUILAR MD Unavailable Unavailable DEE, O AGUILAR MD Unavailable Unavailable DEE, O AGUILAR MD Unavailable Unavailable DEE, O AGUILAR MD Unavailable Unavailable DEE, O AGUILAR MD Unavailable Unavailable DEE, O AUGILAR MD Unavailable Unavailable DEE, O AGUILAR MD Unavailable Unavailable DEE, O AGUILAR MD Unavailable Unavailable DEE, O AGUILAR MD Unavailable Unavailable DEE, O AGUILAR MD Unavailable Unavailable DEE, O AGUILAR MD Unavailable Unavailable DEE, O AGUILAR MD Unavailable Unavailable DEE, O AGUILAR MD Unavailable Unavailable DEE, O AGUILAR MD Unavailable Unavailable DEE, O AGUILAR MD Unavailable Unavailable DEE, O AGUILAR MD Unavailable Unavailable DEE, O AGUILAR MD Unavailable Unavailable DEE, O AGUILAR MD Unavailable Unavailable PRADO, J SEAN PA Unavailable Unavailable PRADO, J SEAN PA Unavailable Unavailable PRADO, J SEAN PA Unavailable Unavailable PRADO, J SEAN PA Unavailable Unavailable PRADO, J SEAN PA Unavailable Unavailable PRADO, J SEAN PA Unavailable Unavailable PRADO, J SEAN PA Unavailable Unavailable PRADO, J SEAN PA Unavailable Unavailable PRADO, J SEAN PA Unavailable Unavailable PRADO, J SEAN PA Unavailable Unavailable PRADO, J SEAN PA Unavailable Unavailable PRADO, J SEAN PA Unavailable Unavailable PRADO, J SEAN PA Unavailable Unavailable PRADO, J SEAN PA Unavailable Unavailable PRADO, J SEAN PA Unavailable Unavailable PRADO, J SEAN PA Unavailable Unavailable PRADO, J SEAN PA Unavailable Unavailable PRADO, J SEAN PA Unavailable Unavailable PRADO, J SEAN PA Unavailable Unavailable PRADO, J SEAN PA Unavailable Unavailable PRADO, J SEAN PA Unavailable Unavailable PRADO, J SEAN PA Unavailable Unavailable PRADO, J SEAN PA Unavailable Unavailable PRADO, J SEAN PA Unavailable Unavailable PRADO, J SEAN PA Unavailable Unavailable PRADO, J SEAN PA Unavailable Unavailable PRADO, J SEAN PA Unavailable Unavailable PRADO, J SEAN PA Unavailable Unavailable PRADO, J SEAN PA Unavailable Unavailable PRADO, J SEAN PA Unavailable Unavailable PRADO, J SEAN PA Unavailable Unavailable PRADO, J SEAN PA Unavailable Unavailable PRADO, J SEAN PA Unavailable Unavailable PRADO, J SEAN PA Unavailable Unavailable PRADO, J SEAN PA Unavailable Unavailable PRADO, J SEAN PA Unavailable Unavailable PRADO, J SEAN PA Unavailable Unavailable PRADO, J SEAN PA Unavailable Unavailable PRADO, J SEAN PA Unavailable Unavailable PRADO, J SEAN PA Unavailable Unavailable PRADO, J SEAN PA Unavailable Unavailable PRADO, J SEAN PA Unavailable Unavailable PRADO, J SEAN PA Unavailable Unavailable PRADO, J SEAN PA Unavailable Unavailable PRADO, J SEAN PA Unavailable Unavailable PRADO, J SEAN PA Unavailable Unavailable PRADO, J SEAN PA Unavailable Unavailable PRADO, J SEAN PA Unavailable Unavailable PRADO, J SEAN PA Unavailable Unavailable PRADO, J SEAN PA Unavailable Unavailable PRADO, J SEAN PA Unavailable Unavailable PRADO, J SEAN PA Unavailable Unavailable PRADO, J SEAN PA Unavailable Unavailable PRADO, J SEAN PA Unavailable Unavailable Scordo, M Letty PA Unavailable Unavailable Scordo, M Letty PA Unavailable Unavailable Scordo, M Letty PA Unavailable Unavailable Scordo, M Letty PA Unavailable Unavailable Scordo, M Letty PA Unavailable Unavailable Scordo, M Letty PA Unavailable Unavailable Scordo, M Letty PA Unavailable Unavailable Scordo, M Letty PA Unavailable Unavailable Scordo, M Letty PA Unavailable Unavailable Scordo, M Letty PA Unavailable Unavailable Scordo, M Letty PA Unavailable Unavailable Scordo, M Letty PA Unavailable Unavailable Scordo, M Letty PA Unavailable Unavailable Scordo, M Letty PA Unavailable Unavailable Scordo, M Letty PA Unavailable Unavailable Scordo, M Letty PA Unavailable Unavailable Scordo, M Letty PA Unavailable Unavailable Scordo, M Letty PA Unavailable Unavailable Scordo, M Letty PA Unavailable Unavailable Scordo, M Letty PA Unavailable Unavailable Scordo, M Letty PA Unavailable Unavailable Scordo, M Letty PA Unavailable Unavailable Scordo, M Letty PA Unavailable Unavailable Scordo, M Letty PA Unavailable Unavailable Scordo, M Letty PA Unavailable Unavailable Scordo, M Letty PA Unavailable Unavailable Scordo, M Letty PA Unavailable Unavailable Scordo, M Letty PA Unavailable Unavailable Scordo, M Letty PA Unavailable Unavailable Scordo, M Letty PA Unavailable Unavailable Scordo, M Letty PA Unavailable Unavailable Scordo, M Letty PA Unavailable Unavailable Scordo, M Letty PA Unavailable Unavailable Scordo, M Letty PA Unavailable Unavailable Scordo, M Letty PA Unavailable Unavailable Scordo, M Letty PA Unavailable Unavailable Scordo, M Letty PA Unavailable Unavailable Scordo, M Letty PA Unavailable Unavailable Scordo, M Letty PA Unavailable Unavailable Scordo, M Letty PA Unavailable Unavailable Scordo, M Letty PA Unavailable Unavailable Scordo, M Letty PA Unavailable Unavailable Scordo, M Letty PA Unavailable Unavailable Scordo, M Letty PA Unavailable Unavailable Scordo, M Letty PA Unavailable Unavailable Scordo, M Letty PA Unavailable Unavailable Scordo, M Letty PA Unavailable Unavailable Re-disclosure Warning The records that [...] is protected by Article 27-F of the [facility] Public Health law. If you continue you may have access to information: Regarding HIV / AIDS; Provided by facilities licensed or operated by the [facility] Office of Mental Health; or Provided by the [facility] Office for People With Developmental Disabilities. If such information is present, then the following [facility] mandated warning applies: This information has been [...] NOT sufficient authorization for further disc losure. Encounters Encounter Providers Location Date Indications Data Source(s ) IFEANYI Leos: [address], [place] [address], Ph. Attender: MARCO A SUGGS [facility] Medical 01/17/2021 12:00:00 AM EDT [facility] ([facility]) IFEANYI Leos: [address], [place] [address], Ph. Attender: MARCO A SUGGS [facility] Medical 09/28/2020 12:00:00 AM EDT [facility] ([facility]) IFEANYI Leos: [address], [place] [address], Ph. Attender: MARCO A SUGGS [facility] Medical 09/28/2020 12:00:00 AM EDT [facility] ([facility]) Outpatient Attender: SU Mackay/Jolene/Natalio/Teodoro fox 09/01/2020 11:30:00 AM EDT [facility] ([facility]) Outpatient Attender: SEAN BERMUDEZ 09/01 09:05:00 AM EDT - 09/01/2020 09:05:00 AM EDT [facility] Ailyn Falcon MD: [address], [place] [address], Ph. Attender: Ailyn Falcon [facility] Medical 08/03/2020 12:00:00 AM EDT [facility] ([facility]) Ailyn Falcon MD: [address], [place] [address], Ph. Attender: Ailyn Falcon [facility] 08/03/2020 12:00:00 AM EDT [facility] ([facility]) Ailyn Falcon MD: [address], [place] [address], Ph. Attender: Ailyn Falcon [facility] 08/03/2020 12:00:00 AM EDT [facility] ([facility]) Office Visit Attender: AGUILAR Mackay/Jolene/Natalio/Blanca indl 07/14/2020 02:00:00 PM EDT [facility] ([facility] Garfield Julian MD: [address] [place] [address], Ph. Attender: Garfield Julian MD [facility] Medical 07/14/2020 12:00:00 AM EDT [facility] ([facility]) Garfield Julian MD: [address] [place] [address], Ph. Attender: Garfield Julian MD [facility] Medical 07/14/2020 12:00:00 AM EDT [facility] ([facility]) Garfield Julian MD: [address] [place] [address], Ph. Attender: Garfield Julian MD [facility] Medical 07/14/2020 12:00:00 AM EDT [facility] ([facility]) Garfield Julian MD: [address] [place] [address], Ph. Attender: Garfield Julian MD [facility] Medical 07/14/2020 12:00:00 AM EDT [facility] ([facility]) Letty Wiley PA-C: [address], [place] [address], Ph. Attender: Letty BERMUDEZ [facility] Medical 07/01/2020 12:00:00 AM EST [facility] ([facility]) Letty Wiley PA-C: [address], [place] [address], Ph. Attender: Letty BERMUDEZ [facility] Medical 07/01/2020 12:00:00 AM EST [facility] ([facility]) Letty Wiley PA-C: [address], [place] [address], Ph. Attender: Letty BERMUDEZ [facility] Medical 07/01/2020 12:00:00 AM EST [facility] ([facility]) Letty Wiley PA-C: [address], [place] [address], Ph. Attender: Letty BERMUDEZ [facility] Medical 07/01/2020 12:00:00 AM EST [facility] ([facility]) Letty Wiley PA-C: [address], [place] [address], Ph. Attender: Letty BERMUDZE [facility] Medical 07/01/2020 12:00:00 AM EST [facility] ([facility]) Garfield Julian MD: [address], [place] [address], Ph. Attender: Garfield Julian MD [facility] Medical 06/02/2020 12:00:00 AM EST [facility] ([facility]) Garfield Julian MD: [address], [place] [address], Ph. Attender: Garfield Julian MD [facility] Medical 06/02/2020 12:00:00 AM EST [facility] ([facility]) Garfield Julian MD: [address], [place] [address], Ph. Attender: Garfield Julian MD [facility] Medical 06/02/2020 12:00:00 AM EST [facility] ([facility]) Garfield Julian MD: [address], [place] [address], Ph. Attender: Garfield Julian MD [facility] Medical 06/02/2020 12:00:00 AM EST [facility] ([facility]) Garfield Julian MD: [address], [place] [address], Ph. Attender: Garfield Julian MD [facility] Medical 06/02/2020 12:00:00 AM EST [facility] ([facility]) Garfield Julian MD: [address], [place] [address], Ph. Attender: Garfield Julian MD [facility] Medical 06/02/2020 12:00:00 AM EST [facility] ([facility]) Outpatient Attender: SEAN BERMUDEZ 05/07 09:10:00 AM EST - 05/07/2020 09:10:00 AM EST [facility] Outpatient Attender: SEAN BERMUDEZ [facility] 05/07 08:00:00 AM EST [facility] Outpatient Attender: MARCO A SUGGS [facility] 03/05/2020 02:44:01 PM [facility] Outpatient Attender: MARCO A PATTERSON RPA-C [facility] 03/05/2020 02:44:00 PM EST [facility] Outpatient Attender: MARCO A PATTERSON AKSHAT-C [facility] 01/30/2020 08:10:01 AM EDT [facility] Outpatient Attender: MARCO A PATTERSON AKSHAT-C [facility] 01/30/2020 08:10:00 AM EDT [facility] Outpatient Attender: SEAN BERMUDEZ 01/05 04:11:00 PM EDT - 01/06/2020 04:11:00 PM EDT [facility] Outpatient Attender: SEAN BERMUDEZ Family Practice 01/05 04:00:00 PM EDT [facility] ([facility] Immunizations Vaccine Date Status Description Data Source(s) COVID-19 VACCINE Moderna 08/19/2020 12:00:00 AM EDT completed [place] Vaccine Series Complete: YESThis Data wa s Submitted to [facility] [employer]. COVID-19 VACCINE Moderna 07/22/2020 12:00:00 AM EDT completed [place] Vaccine Series Complete: NOThis Data was Submitted to [facility] [employer]. Medications Medication Brand Name Start Date Product Form Dose Route Admi nistrative Instructions Pharmacy Instructions Status Indications Reaction Description Data Source(s) adapalene completed adapalene [facility] ([facility]) adapalene completed adapalene [facility] ([facility]) adapalene completed adapalene [facility] ([facility]) Miralax completed Miralax [facility] ([facility]) Miralax completed Miralax ATHE [facility] ([facility]) Insurance Providers Payer name Policy type / Coverage type Policy ID Covered republican ID Covered republican's relationship to gould Policy [place] [id number] SP [id number] R MEDICAID -CLINIC [id number] [place] [id number] SP [id number] Medicaid P [id number] S [id number] MEDICAID [id number] SP [id number] Problems, Conditions, and Diagnoses Code Display Name Description Problem Type Effective Dates Data Source(s) F71 Moderate intellectual disabilities Moderate inte llectual disabilities Diagnosis 09/01/2020 09:05:00 AM EDT [facility] F840 Autistic disorder Autistic disorder Diagnosis 09/01/2020 09:05:00 AM EDT [facility] [id number] Low back pain Low Back Pain Problem 06/02/2020 12:00:00 AM EST [facility] ([facility]) 534982289 Low back pain Low Back Pain Problem 06/02/2020 12:00:00 AM EST [facility] ([facility]) 354855040 Low back pain Low Back Pain Problem 06/02/2020 12:00:00 AM EST [facility] ([facility]) 096546861 Low back pain Low Back Pain Problem 06/02/2020 12:00:00 AM EST [facility] ([facility]) 397509889 Low back pain Low Back Pain Problem 06/02/2020 12:00:00 AM EST [facility] ([facility]) 662919244 Low back pain Low Back Pain Problem 06/02/2020 12:00:00 AM EST [facility] ([facility]) 521.00 Dental caries Dental caries 03/05/2020 02:43:30 PM EST [facility] 520.6 [place] teeth impaction [place] teeth impaction 01/30/2020 08:09:22 AM EDT [facility] [id number] Impacted tooth Impacted Tooth Problem 01/28/2020 12:00:00 AM EDT - 08/03/2020 12:00:00 AM EDT [facility] ([facility]) 748579095 Impacted tooth Impacted Tooth Problem 01/28/2020 12:00:00 AM EDT - 08/03/2020 12:00:00 AM EDT [facility] ([facility]) 929167127 Impacted tooth Impacted Tooth Problem 01/28/2020 12:00:00 AM EDT - 08/03/2020 12:00:00 AM EDT [facility] ([facility]) 603807089 Impacted tooth Impacted Tooth Problem 01/28/2020 12:00: 00 AM EDT [facility] ([facility]) 197292348 Impacted tooth Impacted Tooth Problem 01/28/2020 12:00: 00 AM EDT [facility] ([facility]) 021803336 Impacted tooth Impacted Tooth Problem 01/28/2020 12:00: 00 AM EDT [facility] ([facility]) 498119443 Disorder of skin of head Disorder of Skin of Head Prob izzy 09/09/2019 12:00:00 AM EDT - 08/03/2020 12:00:00 AM EDT [facility] ([facility]) 582559209 Procedure by method Procedure by Method Problem 0 09/09/2019 12:00:00 AM EDT - 08/03/2020 12:00:00 AM EDT [facility] ([facility]) 863108491 Disorder of skin of head Disorder of Skin of Head Prob izzy 09/09/2019 12:00:00 AM EDT - 08/03/2020 12:00:00 AM EDT [facility] ([facility]) 388175623 Procedure by method Procedure by Method Problem 0 09/09/2019 12:00:00 AM EDT - 08/03/2020 12:00:00 AM EDT [facility] ([facility]) 421434531 Disorder of skin of head Disorder of Skin of Head Prob izzy 09/09/2019 12:00:00 AM EDT - 08/03/2020 12:00:00 AM EDT [facility] ([facility]) 961814756 Procedure by method Procedure by Method Problem 0 09/09/2019 12:00:00 AM EDT - 08/03/2020 12:00:00 AM EDT [facility] ([facility]) Surgeries/Procedures Procedure Description Date Indications Data Source(s) Laparoscopy,Surgical;Cholecystectomy 06/18/2020 12:00: 00 AM EST [facility] ([facility] ) Gallbladder Surgery 05/31/2020 12:00:00 AM EST [facility] ([facility]) Gallbladder Surgery 05/31/2020 12:00:00 AM EST [facility] ([facility]) Results ID Date Data Source [id number] 07/19/2020 09:02:00 AM EDT [facility] ([facility]) Name Value Range Interpretation Code Description Data Marla rce(s) Supporting Document(s) Rate & Rhythm Rate & Rhythm [facility] ([facility]) QRS Qrs [facility] ([facility]) SD Interval SD Interval [facility] ([facility]) QRS Duration QRS Duration [facility] ([facility]) QT Interval QT Interval [facility] ([facility]) ID Date Data Source [id number] 07/19/2020 09:02:00 AM EDT [facility] ([facility]) Name Value Range Interpretation Code Description Data Marla rce(s) Supporting Document(s) Rate & Rhythm Rate & Rhythm [facility] ([facility]) QRS Qrs [facility] ([facility]) SD Interval SD Interval [facility] ([facility]) QRS Duration QRS Duration [facility] ([facility]) QT Interval QT Interval [facility] ([facility]) ID Date Data Source [id number] 07/19/2020 09:02:00 AM EDT [facility] ([facility]) Name Value Range Interpretation Code Description Data Marla rce(s) Supporting Document(s) Rate & Rhythm Rate & Rhythm [facility] ([facility]) QRS Qrs [facility] ([facility]) SD Interval SD Interval [facility] ([facility]) QT Interval QT Interval [facility] ([facility]) QRS Duration QRS Duration [facility] ([facility]) ID Date Data Source [id number] 07/19/2020 09:02:00 AM EDT [facility] ([facility]) Name Value Range Interpretation Code Description Data Marla rce(s) Supporting Document(s) Rate & Rhythm Rate & Rhythm [facility] ([facility]) QRS Qrs [facility] ([facility]) SD Interval SD Interval [facility] ([facility]) QRS Duration QRS Duration [facility] ([facility]) QT Interval QT Interval [facility] ([facility]) ID Date Data Source [id number] 07/14/2020 10:00:00 AM EDT [facility]) Name Value Range Interpretation Code Description Data Marla rce(s) Supporting Document(s) estimated average glucose 94 mg/dL 60-110 Estimated Average Glucose [place] ([facility]) Hemoglobin A1c/Hemoglobin.total in Blood 4.9 % Hemoglobin a1C [facility] ([facility]) ID Date Data Source [id number] 07/14/2020 10:00:00 AM EDT [facility]) Name Value Range Interpretation Code Description Data Marla rce(s) Supporting Document(s) ferritin 185 NG/mL 26-388 Ferritin [facility]) ID Date Data Source [id number] 07/14/2020 10:00:00 AM EDT [place] ([facility]) Name Value Range Interpretation Code Description Data Marla rce(s) Supporting Document(s) vitamin B12 level 574 pg/mL Vitamin B12 Level [place] ([facility]) folate 5.7 NG/mL Folate [facility] ([facility]) ID Date Data Source [id number] 07/14/2020 10:00:00 [facility] Name Value Range Interpretation Code Description Data Marla rce(s) Supporting Document(s) iron (fe) 85 ug/dL 65-175 Iron (Fe) [facility] ([facility]) total iron binding capacity 324 ug/dL 250-450 Total Ir on Binding Capacity [place] ([facility]) percent saturation 26.2 % 19.7-50.0 Percent Saturatio n [place] ([facility]) ID Date Data Source [id number] 07/14/2020 10:00:00 AM EDT [facility]) Name Value Range Interpretation Code Description Data Marla rce(s) Supporting Document(s) glucose, fasting 106 mg/dL 70-100 Above high normal Glucose, Fas ting [facility] ([facility]) blood urea nitrogen 12 mg/dL 7-18 Blood Urea Nitro gen [facility] ([facility]) creatinine for GFR 0.97 mg/dL 0.70-1.30 Creatinine for GF R [facility] ([facility]) glomerular filtration rate > 60.0 >60 Glomerula r Filtration Rate [facility] ([facility]) sodium level 138 mEq/L 136-145 Sodium Level [facility] ([facility]) potassium serum 3.9 mEq/L 3.5-5.1 Potassium Serum [facility] ([facility]) chloride level 105 mEq/L 98-107 Chloride Level [place] ([facility]) carbon dioxide level 27 mEq/L 21-32 Carbon Dioxide Level [facility] ([facility]) anion gap 6 mEq/L 8-16 Below low normal Anion Gap [facility] ( [facility]) calcium level 9.3 mg/dL 8.5-10.1 Calcium Level [facility] ( [facility]) AST/SGOT 30 U/L 7-37 AST/SGOT [facility] ([facility]) ALT/SGPT 52 U/L 12-78 ALT/SGPT [facility] ([facility]) alkaline phosphatase 90 U/L 45-117 Alkaline Phosph atase [facility] ([facility]) bilirubin,total 0.5 mg/dL 0.2-1.0 Bilirubin,total AT[facility]) total protein 7.6 gm/dL 6.4-8.2 Total Protein [facility] ( [facility]) albumin 4.0 gm/dL 3.2-5.2 Albumin [facility] ([facility]) albumin/globulin ratio Albumin/globu mar Ratio [facility] ([facility]) ID Date Data Source [id number] 07/14/2020 10:00:00 AM EDT [facility] ([facility]) Name Value Range Interpretation Code Description Data Marla rce(s) Supporting Document(s) white blood count 5.9 10 4.0-10.0 White Blood Count [facility] ([facility]) red blood count 4.93 10 4.30-6.10 Red Blood Count [facility] ([facility]) hemoglobin 14.1 g/dL 13.5-17.5 Hemoglobin [facility] ([facility]) hematocrit 43.1 % 42.0-52.0 Hematocrit [facility] ([facility]) mean corpuscular hemoglobin 28.6 pg 27.0-33.0 Mean Cor puscular Hemoglobin [facility] ([facility]) mean corpuscular volume 87.4 fL 80.0-96.0 Mean Corpusc ular Volume [facility] ([facility]) mean corpuscular HGB conc 32.7 g/dL 32.0-36.5 Mean Corpu scular HGB Conc [facility] ([facility]) red cell distribution width 13.6 % 11.5-14.5 Red Cell Distribution Width [facility] ([facility]) platelet count, automated 256 10 150-450 Platelet C ount, Automated [facility] ([facility]) neutrophils % 52.4 % 36.0-66.0 Neutrophils % [facility] ( [facility]) lymph % 37.2 % 24.0-44.0 Lymph % [facility] ([facility]) mono % 6.7 % 2.0-8.0 [place] % [facility] ([facility]) eos % 2.9 % 0.0-3.0 Eos % [facility] ([facility]) baso % 0.5 % 0.0-1.0 Baso % [place] ([facility]) nucleated red blood cell % 0.0 % 0-0 Nucleated Red Blood Cell % [facility] ([facility]) immature granulocyte % 0.3 % 0-3.0 Immature Gran ulocyte % [facility] ([facility]) neutrophils # 3.1 10 1.5-8.5 Neutrophils # [facility] ( [facility]) mono # 0.4 10 0.0-0.8 Frontier # [facility] ([facility]) lymph # 2.2 10 1.5-5.0 Lymph # [facility] ([facility]) eos # 0.2 10 0.0-0.5 Eos # [facility] ([facility]) baso # 0.0 10 0.0-0.2 Baso # [facility] ([facility]) ID Date Data Source [id number] 07/14/2020 10:00:00 AM EDT [facility] ([facility]) Name Value Range Interpretation Code Description Data Marla rce(s) Supporting Document(s) Hemoglobin A1c/Hemoglobin.total in Blood 4.9 % Hemoglobin a1C [facility] ([facility]) estimated average glucose 94 mg/dL 60-110 Estimated Average Glucose [facility] ([facility]) ID Date Data Source [id number] 07/14/2020 10:00:00 AM EDT [facility] ([facility]) Name Value Range Interpretation Code Description Data Marla rce(s) Supporting Document(s) ferritin 185 NG/mL 26-388 Ferritin [facility] ([facility]) ID Date Data Source [id number] 07/14/2020 10:00:00 AM EDT [facility] ([facility]) Name Value Range Interpretation Code Description Data Marla rce(s) Supporting Document(s) vitamin B12 level 574 pg/mL Vitamin B12 Level [facility] ([facility]) folate 5.7 NG/mL Folate [facility] ([facility]) ID Date Data Source [id number] 07/14/2020 10:00:00 AM EDT [facility] ([facility]) Name Value Range Interpretation Code Description Data Marla rce(s) Supporting Document(s) iron (fe) 85 ug/dL 65-175 Iron (Fe) [facility] ([facility]) total iron binding capacity 324 ug/dL 250-450 Total Ir on Binding Capacity [facility] ([facility]) percent saturation 26.2 % 19.7-50.0 Percent Saturatio n [facility] ([facility]) ID Date Data Source [id number] 07/14/2020 10:00:00 AM EDT [facility] ([facility]) Name Value Range Interpretation Code Description Data Marla rce(s) Supporting Document(s) glucose, fasting 106 mg/dL 70-100 Above high normal Glucose, Fas ting [facility] ([facility]) blood urea nitrogen 12 mg/dL 7-18 Blood Urea Nitro gen [facility] ([facility]) creatinine for GFR 0.97 mg/dL 0.70-1.30 Creatinine for GF R [facility] ([facility]) glomerular filtration rate > 60.0 >60 Glomerula r Filtration Rate [facility] ([facility]) potassium serum 3.9 mEq/L 3.5-5.1 Potassium Serum [facility] ([facility]) sodium level 138 mEq/L 136-145 Sodium Level [facility] ([facility]) chloride level 105 mEq/L 98-107 Chloride Level [facility] ([facility]) anion gap 6 mEq/L 8-16 Below low normal Anion Gap [facility] ( [facility]) carbon dioxide level 27 mEq/L 21-32 Carbon Dioxide Level [facility] ([facility]) calcium level 9.3 mg/dL 8.5-10.1 Calcium Level [facility] ( [facility]) ALT/SGPT 52 U/L 12-78 ALT/SGPT [facility] ([facility]) AST/SGOT 30 U/L 7-37 AST/SGOT [facility] ([facility]) alkaline phosphatase 90 U/L 45-117 Alkaline Phosph atase [facility] ([facility]) bilirubin,total 0.5 mg/dL 0.2-1.0 Bilirubin,total [facility] ([facility]) total protein 7.6 gm/dL 6.4-8.2 Total Protein [facility] ( [facility]) albumin 4.0 gm/dL 3.2-5.2 Albumin [facility] ([facility]) albumin/globulin ratio Albumin/globu mar Ratio [facility] ([facility]) ID Date Data Source [id number] 07/14/2020 10:00:00 AM EDT [facility] ([facility]) Name Value Range Interpretation Code Description Data Marla rce(s) Supporting Document(s) white blood count 5.9 10 4.0-10.0 White Blood Count [facility] ([facility]) red blood count 4.93 10 4.30-6.10 Red Blood Count [facility] ([facility]) hematocrit 43.1 % 42.0-52.0 Hematocrit [facility] ([facility]) hemoglobin 14.1 g/dL 13.5-17.5 Hemoglobin [facility] ([facility]) mean corpuscular volume 87.4 fL 80.0-96.0 Mean Corpusc ular Volume [facility] ([facility]) mean corpuscular hemoglobin 28.6 pg 27.0-33.0 Mean Cor puscular Hemoglobin [facility] ([facility]) mean corpuscular HGB conc 32.7 g/dL 32.0-36.5 Mean Corpu scular HGB Conc [facility] ([facility]) red cell distribution width 13.6 % 11.5-14.5 Red Cell Distribution Width [facility] ([facility]) platelet count, automated 256 10 150-450 Platelet C ount, Automated [place] ([facility]) neutrophils % 52.4 % 36.0-66.0 Neutrophils % [place] ( [facility]) lymph % 37.2 % 24.0-44.0 Lymph % [place] ([facility]) mono % 6.7 % 2.0-8.0 Frontier % [facility] ([facility]) eos % 2.9 % 0.0-3.0 Eos % [facility] ([facility]) baso % 0.5 % 0.0-1.0 Baso % [place] ([facility]) immature granulocyte % 0.3 % 0-3.0 Immature Gran ulocyte % [place] ([facility]) neutrophils # 3.1 10 1.5-8.5 Neutrophils # [facility] ( [facility]) nucleated red blood cell % 0.0 % 0-0 Nucleated Red Blood Cell % [place] ([facility]) lymph # 2.2 10 1.5-5.0 Lymph # [facility] ([facility]) eos # 0.2 10 0.0-0.5 Eos # [facility] ([facility]) mono # 0.4 10 0.0-0.8 Frontier # [facility] ([facility]) baso # 0.0 10 0.0-0.2 Baso # [facility] ([facility]) ID Date Data Source [id number] 07/14/2020 10:00:00 AM EDT [facility] ([facility]) Name Value Range Interpretation Code Description Data Marla rce(s) Supporting Document(s) Hemoglobin A1c/Hemoglobin.total in Blood 4.9 % Hemoglobin a1C [facility] ([facility]) estimated average glucose 94 mg/dL 60-110 Estimated Average Glucose [facility] ([facility]) ID Date Data Source [id number] 07/14/2020 10:00:00 AM EDT [facility] ([facility]) Name Value Range Interpretation Code Description Data Marla rce(s) Supporting Document(s) ferritin 185 NG/mL 26-388 Ferritin [facility] ([facility]) ID Date Data Source [id number] 07/14/2020 10:00:00 AM EDT [facility] ([facility]) Name Value Range Interpretation Code Description Data Marla rce(s) Supporting Document(s) vitamin B12 level 574 pg/mL Vitamin B12 Level [facility] ([facility]) folate 5.7 NG/mL Folate [facility] ([facility]) ID Date Data Source [id number] 07/14/2020 10:00:00 AM EDT [facility] ([facility]) Name Value Range Interpretation Code Description Data Marla rce(s) Supporting Document(s) iron (fe) 85 ug/dL 65-175 Iron (Fe) [facility] ([facility]) total iron binding capacity 324 ug/dL 250-450 Total Ir on Binding Capacity [facility] ([facility]) percent saturation 26.2 % 19.7-50.0 Percent Saturatio n [facility] ([facility]) ID Date Data Source [id number] 07/14/2020 10:00:00 AM EDT [place] ([facility]) Name Value Range Interpretation Code Description Data Marla rce(s) Supporting Document(s) glucose, fasting 106 mg/dL 70-100 Above high normal Glucose, Fas ting [facility] ([facility]) creatinine for GFR 0.97 mg/dL 0.70-1.30 Creatinine for GF R [facility] ([facility]) blood urea nitrogen 12 mg/dL 7-18 Blood Urea Nitro gen [facility] ([facility]) glomerular filtration rate > 60.0 >60 Glomerula r Filtration Rate [facility] ([facility]) potassium serum 3.9 mEq/L 3.5-5.1 Potassium Serum [facility] ([facility]) sodium level 138 mEq/L 136-145 Sodium Level [facility] ([facility]) chloride level 105 mEq/L 98-107 Chloride Level [facility] ([facility]) anion gap 6 mEq/L 8-16 Below low normal Anion Gap [facility] ( [facility]) carbon dioxide level 27 mEq/L 21-32 Carbon Dioxide Level [facility] ([facility]) calcium level 9.3 mg/dL 8.5-10.1 Calcium Level [facility] ( [facility]) ALT/SGPT 52 U/L 12-78 ALT/SGPT [facility] ([facility]) AST/SGOT 30 U/L 7-37 AST/SGOT [facility] ([facility]) alkaline phosphatase 90 U/L 45-117 Alkaline Phosph atase [facility] ([facility]) bilirubin,total 0.5 mg/dL 0.2-1.0 Bilirubin,total [facility] NA ([facility]) total protein 7.6 gm/dL 6.4-8.2 Total Protein [facility] ( [facility]) albumin 4.0 gm/dL 3.2-5.2 Albumin [facility] ([facility]) albumin/globulin ratio Albumin/globu mar Ratio [facility] ([facility]) ID Date Data Source [id number] 07/14/2020 10:00:00 AM EDT [facility] ([facility]) Name Value Range Interpretation Code Description Data Marla rce(s) Supporting Document(s) white blood count 5.9 10 4.0-10.0 White Blood Count [facility] ([facility]) hemoglobin 14.1 g/dL 13.5-17.5 Hemoglobin [facility] ([facility]) red blood count 4.93 10 4.30-6.10 Red Blood Count [facility] ([facility]) hematocrit 43.1 % 42.0-52.0 Hematocrit [facility] ([facility]) mean corpuscular volume 87.4 fL 80.0-96.0 Mean Corpusc ular Volume [facility] ([facility]) mean corpuscular hemoglobin 28.6 pg 27.0-33.0 Mean Cor puscular Hemoglobin [facility] ([facility]) mean corpuscular HGB conc 32.7 g/dL 32.0-36.5 Mean Corpu scular HGB Conc [facility] ([facility]) red cell distribution width 13.6 % 11.5-14.5 Red Cell Distribution Width [facility] ([facility]) platelet count, automated 256 10 150-450 Platelet C ount, Automated [facility] ([facility]) lymph % 37.2 % 24.0-44.0 Lymph % [facility] ([facility]) neutrophils % 52.4 % 36.0-66.0 Neutrophils % [facility] ( [facility]) mono % 6.7 % 2.0-8.0 Frontier % [facility] ([facility]) eos % 2.9 % 0.0-3.0 Eos % [facility] ([facility]) baso % 0.5 % 0.0-1.0 Baso % [facility] ([facility]) immature granulocyte % 0.3 % 0-3.0 Immature Gran ulocyte % [facility] ([facility]) nucleated red blood cell % 0.0 % 0-0 Nucleated Red Blood Cell % [facility] ([facility]) neutrophils # 3.1 10 1.5-8.5 Neutrophils # [facility] ( [facility]) lymph # 2.2 10 1.5-5.0 Lymph # [facility] ([facility]) eos # 0.2 10 0.0-0.5 Eos # [facility] ([facility]) mono # 0.4 10 0.0-0.8 Frontier # [facility] ([facility]) baso # 0.0 10 0.0-0.2 Baso # [facility] ([facility]) ID Date Data Source [id number] 07/14/2020 10:00:00 AM EDT [facility] ([facility]) Name Value Range Interpretation Code Description Data Marla rce(s) Supporting Document(s) Hemoglobin A1c/Hemoglobin.total in Blood 4.9 % Hemoglobin a1C [facility] ([facility]) estimated average glucose 94 mg/dL 60-110 Estimated Average Glucose [facility] ([facility]) ID Date Data Source [id number] 07/14/2020 10:00:00 AM EDT [facility]) Name Value Range Interpretation Code Description Data Marla rce(s) Supporting Document(s) ferritin 185 NG/mL 26-388 Ferritin [facility] ([facility]) ID Date Data Source [id number] 07/14/2020 10:00:00 AM EDT [place] ([facility]) Name Value Range Interpretation Code Description Data Marla rce(s) Supporting Document(s) vitamin B12 level 574 pg/mL Vitamin B12 Level [facility] ([facility]) folate 5.7 NG/mL Folate [place] ([facility]) ID Date Data Source [id number] 07/14/2020 10:00:00 AM EDT [facility]) Name Value Range Interpretation Code Description Data Marla rce(s) Supporting Document(s) iron (fe) 85 ug/dL 65-175 Iron (Fe) [facility] ([facility]) total iron binding capacity 324 ug/dL 250-450 Total Ir on Binding Capacity [facility] ([facility]) percent saturation 26.2 % 19.7-50.0 Percent Saturatio n [facility] ([facility]) ID Date Data Source [id number] 07/14/2020 10:00:00 AM EDT [place] ([facility]) Name Value Range Interpretation Code Description Data Marla rce(s) Supporting Document(s) glucose, fasting 106 mg/dL 70-100 Above high normal Glucose, Fas ting [facility] ([facility]) blood urea nitrogen 12 mg/dL 7-18 Blood Urea Nitro gen [facility] ([facility]) creatinine for GFR 0.97 mg/dL 0.70-1.30 Creatinine for GF R [facility] ([facility]) glomerular filtration rate > 60.0 >60 Glomerula r Filtration Rate [facility] ([facility]) sodium level 138 mEq/L 136-145 Sodium Level [facility] ([facility]) potassium serum 3.9 mEq/L 3.5-5.1 Potassium Serum [facility] ([facility]) chloride level 105 mEq/L 98-107 Chloride Level [facility] ([facility]) carbon dioxide level 27 mEq/L 21-32 Carbon Dioxide Level [facility] ([facility]) anion gap 6 mEq/L 8-16 Below low normal Anion Gap [facility] ( [facility]) AST/SGOT 30 U/L 7-37 AST/SGOT [facility] ([facility]) calcium level 9.3 mg/dL 8.5-10.1 Calcium Level [facility] ( [facility]) ALT/SGPT 52 U/L 12-78 ALT/SGPT [facility] ([facility]) alkaline phosphatase 90 U/L 45-117 Alkaline Phosph atase [facility] ([facility]) bilirubin,total 0.5 mg/dL 0.2-1.0 Bilirubin,total [facility] ([facility]) total protein 7.6 gm/dL 6.4-8.2 Total Protein [facility] ( [facility]) albumin 4.0 gm/dL 3.2-5.2 Albumin [facility] ([facility]) albumin/globulin ratio Albumin/globu mar Ratio [facility] ([facility]) ID Date Data Source [id number] 07/14/2020 10:00:00 AM EDT [facility] ([facility]) Name Value Range Interpretation Code Description Data Marla rce(s) Supporting Document(s) white blood count 5.9 10 4.0-10.0 White Blood Count [facility] ([facility]) red blood count 4.93 10 4.30-6.10 Red Blood Count [facility] NA ([facility]) hemoglobin 14.1 g/dL 13.5-17.5 Hemoglobin [facility] ([facility]) mean corpuscular volume 87.4 fL 80.0-96.0 Mean Corpusc ular Volume [facility] ([facility]) hematocrit 43.1 % 42.0-52.0 Hematocrit [facility] ([facility]) mean corpuscular hemoglobin 28.6 pg 27.0-33.0 Mean Cor puscular Hemoglobin [facility] ([facility]) red cell distribution width 13.6 % 11.5-14.5 Red Cell Distribution Width [facility] ([facility]) mean corpuscular HGB conc 32.7 g/dL 32.0-36.5 Mean Corpu scular HGB Conc [facility] ([facility]) platelet count, automated 256 10 150-450 Platelet C ount, Automated [facility] ([facility]) neutrophils % 52.4 % 36.0-66.0 Neutrophils % [facility] ( [facility]) lymph % 37.2 % 24.0-44.0 Lymph % [facility] ([facility]) eos % 2.9 % 0.0-3.0 Eos % [facility] ([facility]) mono % 6.7 % 2.0-8.0 Frontier % [facility] ([facility]) baso % 0.5 % 0.0-1.0 Baso % [facility] ([facility]) immature granulocyte % 0.3 % 0-3.0 Immature Gran ulocyte % [facility] ([facility]) nucleated red blood cell % 0.0 % 0-0 Nucleated Red Blood Cell % [facility] ([facility]) neutrophils # 3.1 10 1.5-8.5 Neutrophils # [facility] ( [facility]) lymph # 2.2 10 1.5-5.0 Lymph # [facility] ([facility]) eos # 0.2 10 0.0-0.5 Eos # [facility] ([facility]) mono # 0.4 10 0.0-0.8 Frontier # [facility] ([facility]) baso # 0.0 10 0.0-0.2 Baso # [facility] ([facility]) ID Date Data Source [id number] 07/13/2020 02:00:00 PM EDT [facility] Name Value Range Interpretation Code Description Data Marla rce(s) Supporting Document(s) SARS coronavirus 2 RNA [Presence] in Res piratory specimen by ANJU with probe detection NEGATIVE [facility] This lab was ordered by [facility] a nd reported by [facility]. ID Date Data Source [id number] 06/19/2020 05:02:00 AM EST [facility] ([facility]) Name Value Range Interpretation Code Description Data Marla rce(s) Supporting Document(s) magnesium level 2.1 mg/dL 1.8-2.4 Magnesium Level [facility] ([facility]) ID Date Data Source [id number] 06/19/2020 05:02:00 AM EST [facility] ([facility]) Name Value Range Interpretation Code Description Data Marla rce(s) Supporting Document(s) phosphorus level 2.5 mg/dL 2.5-4.[address] [facility] ([facility]) ID Date Data Source [id number] 06/19/2020 05:02:00 AM EST [facility] ([facility]) Name Value Range Interpretation Code Description Data Marla rce(s) Supporting Document(s) glucose, fasting 116 mg/dL 70-100 Above high normal Glucose, Fas ting [facility] ([facility]) blood urea nitrogen 8 mg/dL 7-18 Blood Urea Nitro gen [facility] ([facility]) creatinine for GFR 0.70 mg/dL 0.70-1.30 Creatinine for GF R [facility] ([facility]) glomerular filtration rate > 60.0 >60 Glomerula r Filtration Rate [facility] ([facility]) sodium level 142 mEq/L 136-145 Sodium Level [facility] ([facility]) potassium serum 4.5 mEq/L 3.5-5.1 Potassium Serum [facility] NA ([facility]) chloride level 109 mEq/L 98-107 Above high normal Chloride Level [facility] ([facility]) anion gap 8 mEq/L 8-16 Anion Gap [facility] ([facility]) carbon dioxide level 25 mEq/L 21-32 Carbon Dioxide Level [facility] ([facility]) calcium level 7.5 mg/dL 8.5-10.1 Below low normal Calcium Level [facility]) AST/SGOT 31 U/L 7-37 AST/SGOT [facility] ([facility]) ALT/SGPT 41 U/L 12-78 ALT/SGPT [facility] ([facility]) alkaline phosphatase 100 U/L 45-117 Alkaline Phosph atase [facility] ([facility]) bilirubin,total 0.6 mg/dL 0.2-1.0 Bilirubin,total [facility] ([facility]) total protein 5.4 gm/dL 6.4-8.2 Below low normal Total Protein AT [facility]) albumin 2.2 gm/dL 3.2-5.2 Below low normal Albumin [facility] ( [facility]) albumin/globulin ratio Albumin/globu mar Ratio [place] ([facility]) ID Date Data Source [id number] 06/19/2020 05:02:00 AM EST [facility] ([facility]) Name Value Range Interpretation Code Description Data Marla rce(s) Supporting Document(s) white blood count 5.8 10 4.0-10.0 White Blood Count [facility] ([facility]) red blood count 3.88 10 4.30-6.10 Below low normal Red Blood Coun t [facility] ([facility]) hematocrit 34.1 % 42.0-52.0 Below low normal Hematocrit [facility] ( [facility]) hemoglobin 10.9 g/dL 13.5-17.5 Below low normal Hemoglobin [facility] ( [facility]) mean corpuscular volume 87.9 fL 80.0-96.0 Mean Corpusc ular Volume [facility] ([facility]) mean corpuscular hemoglobin 28.1 pg 27.0-33.0 Mean Cor puscular Hemoglobin [facility] ([facility]) mean corpuscular HGB conc 32.0 g/dL 32.0-36.5 Mean Corpu scular HGB Conc [facility] ([facility]) red cell distribution width 13.4 % 11.5-14.5 Red Cell Distribution Width [facility] ([facility]) platelet count, automated 211 10 150-450 Platelet C ount, Automated [facility] ([facility]) nucleated red blood cell % 0.0 % 0-0 Nucleated Red Blood Cell % [facility] ([facility]) ID Date Data Source [id number] 06/19/2020 05:02:00 AM EST [facility] ([facility]) Name Value Range Interpretation Code Description Data Marla rce(s) Supporting Document(s) magnesium level 2.1 mg/dL 1.8-2.4 Magnesium Level [facility] ([facility]) ID Date Data Source [id number] 06/19/2020 05:02:00 AM EST [facility] ([facility]) Name Value Range Interpretation Code Description Data Marla rce(s) Supporting Document(s) phosphorus level 2.5 mg/dL 2.5-4.9 Phosphorus Level AT [facility]) ID Date Data Source [id number] 06/19/2020 05:02:00 AM EST [facility] ([facility]) Name Value Range Interpretation Code Description Data Marla rce(s) Supporting Document(s) glucose, fasting 116 mg/dL 70-100 Above high normal Glucose, Fas ting [facility] ([facility]) blood urea nitrogen 8 mg/dL 7-18 Blood Urea Nitro gen [facility] ([facility]) creatinine for GFR 0.70 mg/dL 0.70-1.30 Creatinine for GF R [facility] ([facility]) glomerular filtration rate > 60.0 >60 Glomerula r Filtration Rate [facility] ([facility]) sodium level 142 mEq/L 136-145 Sodium Level [facility] ([facility]) potassium serum 4.5 mEq/L 3.5-5.1 Potassium Serum ATHE NA ([facility]) chloride level 109 mEq/L 98-107 Above high normal Chloride Level [place] ([facility]) carbon dioxide level 25 mEq/L 21-32 Carbon Dioxide Level [place] ([facility]) anion gap 8 mEq/L 8-16 Anion Gap [place] ([facility]) calcium level 7.5 mg/dL 8.5-10.1 Below low normal Calcium Level AT [facility]) AST/SGOT 31 U/L 7-37 AST/SGOT [place] ([facility]) ALT/SGPT 41 U/L 12-78 ALT/SGPT [place] ([facility]) alkaline phosphatase 100 U/L 45-117 Alkaline Phosph atase [facility] ([facility]) bilirubin,total 0.6 mg/dL 0.2-1.0 Bilirubin,total [facility] ([facility]) total protein 5.4 gm/dL 6.4-8.2 Below low normal Total Protein AT [facility]) albumin 2.2 gm/dL 3.2-5.2 Below low normal Albumin [place] ( [facility]) albumin/globulin ratio Albumin/globu mar Ratio [place] ([facility]) ID Date Data Source [id number] 06/19/2020 05:02:00 AM EST [facility] ([facility]) Name Value Range Interpretation Code Description Data Marla rce(s) Supporting Document(s) white blood count 5.8 10 4.0-10.0 White Blood Count [facility] ([facility]) hemoglobin 10.9 g/dL 13.5-17.5 Below low normal Hemoglobin [facility] ( [facility]) red blood count 3.88 10 4.30-6.10 Below low normal Red Blood Coun t [facility] ([facility]) mean corpuscular volume 87.9 fL 80.0-96.0 Mean Corpusc ular Volume [facility] ([facility]) hematocrit 34.1 % 42.0-52.0 Below low normal Hematocrit [place] ( [facility]) mean corpuscular hemoglobin 28.1 pg 27.0-33.0 Mean Cor puscular Hemoglobin [place] ([facility]) mean corpuscular HGB conc 32.0 g/dL 32.0-36.5 Mean Corpu scular HGB Conc [facility] ([facility]) red cell distribution width 13.4 % 11.5-14.5 Red Cell Distribution Width [place] ([facility]) platelet count, automated 211 10 150-450 Platelet C ount, Automated [facility] ([facility]) nucleated red blood cell % 0.0 % 0-0 Nucleated Red Blood Cell % [facility] ([facility]) ID Date Data Source [id number] 06/19/2020 05:02:00 AM EST [facility] ([facility]) Name Value Range Interpretation Code Description Data Marla rce(s) Supporting Document(s) magnesium level 2.1 mg/dL 1.8-2.4 Magnesium Level [facility] NA ([facility]) ID Date Data Source [id number] 06/19/2020 05:02:00 AM EST [facility] ([facility]) Name Value Range Interpretation Code Description Data Marla rce(s) Supporting Document(s) phosphorus level 2.5 mg/dL 2.5-4.9 Phosphorus Level AT [facility]) ID Date Data Source [id number] 06/19/2020 05:02:00 AM EST [place] ([facility]) Name Value Range Interpretation Code Description Data Marla rce(s) Supporting Document(s) glucose, fasting 116 mg/dL 70-100 Above high normal Glucose, Fas ting [facility] ([facility]) blood urea nitrogen 8 mg/dL 7-18 Blood Urea Nitro gen [facility] ([facility]) creatinine for GFR 0.70 mg/dL 0.70-1.30 Creatinine for GF R [place] ([facility]) glomerular filtration rate > 60.0 >60 Glomerula r Filtration Rate [place] ([facility]) potassium serum 4.5 mEq/L 3.5-5.1 Potassium Serum [facility] ([facility]) sodium level 142 mEq/L 136-145 Sodium Level [facility] ([facility]) chloride level 109 mEq/L 98-107 Above high normal Chloride Level [facility] ([facility]) carbon dioxide level 25 mEq/L 21-32 Carbon Dioxide Level [place] ([facility]) anion gap 8 mEq/L 8-16 Anion Gap [place] ([facility]) AST/SGOT 31 U/L 7-37 AST/SGOT [place] ([facility]) calcium level 7.5 mg/dL 8.5-10.1 Below low normal Calcium Level AT [facility] ([facility]) ALT/SGPT 41 U/L 12-78 ALT/SGPT [facility] ([facility]) alkaline phosphatase 100 U/L 45-117 Alkaline Phosph atase [facility] ([facility]) bilirubin,total 0.6 mg/dL 0.2-1.0 Bilirubin,total [facility] ([facility]) albumin 2.2 gm/dL 3.2-5.2 Below low normal Albumin [place] ( [facility]) total protein 5.4 gm/dL 6.4-8.2 Below low normal Total Protein AT [facility] ([facility]) albumin/globulin ratio Albumin/globu mar Ratio [facility] ([facility]) ID Date Data Source [id number] 06/19/2020 05:02:00 AM EST [facility] ([facility]) Name Value Range Interpretation Code Description Data Marla rce(s) Supporting Document(s) white blood count 5.8 10 4.0-10.0 White Blood Count [facility] ([facility]) hemoglobin 10.9 g/dL 13.5-17.5 Below low normal Hemoglobin [facility] ( [facility]) red blood count 3.88 10 4.30-6.10 Below low normal Red Blood Coun t [facility] ([facility]) hematocrit 34.1 % 42.0-52.0 Below low normal Hematocrit [facility] ( [facility]) mean corpuscular volume 87.9 fL 80.0-96.0 Mean Corpusc ular Volume [facility] ([facility]) mean corpuscular hemoglobin 28.1 pg 27.0-33.0 Mean Cor puscular Hemoglobin [facility] ([facility]) mean corpuscular HGB conc 32.0 g/dL 32.0-36.5 Mean Corpu scular HGB Conc [facility] ([facility]) red cell distribution width 13.4 % 11.5-14.5 Red Cell Distribution Width [facility] ([facility]) platelet count, automated 211 10 150-450 Platelet C ount, Automated [facility] ([facility]) nucleated red blood cell % 0.0 % 0-0 Nucleated Red Blood Cell % [facility] ([facility]) ID Date Data Source [id number] 06/19/2020 05:02:00 AM EST [facility] ([facility]) Name Value Range Interpretation Code Description Data Marla rce(s) Supporting Document(s) magnesium level 2.1 mg/dL 1.8-2.4 Magnesium Level [facility] ([facility]) ID Date Data Source [id number] 06/19/2020 05:02:00 AM EST [facility] ([facility]) Name Value Range Interpretation Code Description Data Marla rce(s) Supporting Document(s) phosphorus level 2.5 mg/dL 2.5-4.9 Phosphorus Level AT [facility]) ID Date Data Source [id number] 06/19/2020 05:02:00 AM EST [facility] ([facility]) Name Value Range Interpretation Code Description Data Marla rce(s) Supporting Document(s) glucose, fasting 116 mg/dL 70-100 Above high normal Glucose, Fas ting [place] ([facility]) creatinine for GFR 0.70 mg/dL 0.70-1.30 Creatinine for GF R [place] ([facility]) blood urea nitrogen 8 mg/dL 7-18 Blood Urea Nitro gen [place] ([facility]) glomerular filtration rate > 60.0 >60 Glomerula r Filtration Rate [place] ([facility]) potassium serum 4.5 mEq/L 3.5-5.1 Potassium Serum [facility] NA ([facility]) sodium level 142 mEq/L 136-145 Sodium Level [place] ([facility]) carbon dioxide level 25 mEq/L 21-32 Carbon Dioxide Level [place] ([facility]) chloride level 109 mEq/L 98-107 Above high normal Chloride Level [place] ([facility]) calcium level 7.5 mg/dL 8.5-10.1 Below low normal Calcium Level AT [facility] ([facility]) anion gap 8 mEq/L 8-16 Anion Gap [facility] ([facility]) AST/SGOT 31 U/L 7-37 AST/SGOT [facility] ([facility]) alkaline phosphatase 100 U/L 45-117 Alkaline Phosph atase [facility] ([facility]) ALT/SGPT 41 U/L 12-78 ALT/SGPT [place] ([facility]) total protein 5.4 gm/dL 6.4-8.2 Below low normal Total Protein AT [facility] ([facility]) bilirubin,total 0.6 mg/dL 0.2-1.0 Bilirubin,total [facility] ([facility]) albumin 2.2 gm/dL 3.2-5.2 Below low normal Albumin [facility] ( [facility]) albumin/globulin ratio Albumin/globu mar Ratio [facility] ([facility]) ID Date Data Source [id number] 06/19/2020 05:02:00 AM EST [facility] ([facility]) Name Value Range Interpretation Code Description Data Marla rce(s) Supporting Document(s) white blood count 5.8 10 4.0-10.0 White Blood Count [facility] ([facility]) red blood count 3.88 10 4.30-6.10 Below low normal Red Blood Coun t [facility] ([facility]) hemoglobin 10.9 g/dL 13.5-17.5 Below low normal Hemoglobin [facility] ( [facility]) mean corpuscular volume 87.9 fL 80.0-96.0 Mean Corpusc ular Volume [facility] ([facility]) hematocrit 34.1 % 42.0-52.0 Below low normal Hematocrit [facility] ( [facility]) mean corpuscular hemoglobin 28.1 pg 27.0-33.0 Mean Cor puscular Hemoglobin [facility] ([facility]) red cell distribution width 13.4 % 11.5-14.5 Red Cell Distribution Width [facility] ([facility]) mean corpuscular HGB conc 32.0 g/dL 32.0-36.5 Mean Corpu scular HGB Conc [facility] ([facility]) nucleated red blood cell % 0.0 % 0-0 Nucleated Red Blood Cell % [facility] ([facility]) platelet count, automated 211 10 150-450 Platelet C ount, Automated [facility] ([facility]) ID Date Data Source [id number] 06/19/2020 05:02:00 AM EST [facility] ([facility]) Name Value Range Interpretation Code Description Data Marla rce(s) Supporting Document(s) magnesium level 2.1 mg/dL 1.8-2.4 Magnesium Level [facility] NA ([facility]) ID Date Data Source [id number] 06/19/2020 05:02:00 AM EST [facility] ([facility]) Name Value Range Interpretation Code Description Data Marla rce(s) Supporting Document(s) phosphorus level 2.5 mg/dL 2.5-4.9 Phosphorus Level AT [facility]) ID Date Data Source [id number] 06/19/2020 05:02:00 AM EST [facility] ([facility]) Name Value Range Interpretation Code Description Data Marla rce(s) Supporting Document(s) glucose, fasting 116 mg/dL 70-100 Above high normal Glucose, Fas ting [facility] ([facility]) blood urea nitrogen 8 mg/dL 7-18 Blood Urea Nitro gen [place] ([facility]) creatinine for GFR 0.70 mg/dL 0.70-1.30 Creatinine for GF R [place] ([facility]) glomerular filtration rate > 60.0 >60 Glomerula r Filtration Rate [facility] ([facility]) potassium serum 4.5 mEq/L 3.5-5.1 Potassium Serum [facility] ([facility]) sodium level 142 mEq/L 136-145 Sodium Level [facility] ([facility]) chloride level 109 mEq/L 98-107 Above high normal Chloride Level [facility] ([facility]) carbon dioxide level 25 mEq/L 21-32 Carbon Dioxide Level [facility] ([facility]) anion gap 8 mEq/L 8-16 Anion Gap [facility] ([facility]) calcium level 7.5 mg/dL 8.5-10.1 Below low normal Calcium Level AT [facility]) AST/SGOT 31 U/L 7-37 AST/SGOT [facility] ([facility]) ALT/SGPT 41 U/L 12-78 ALT/SGPT [facility] ([facility]) bilirubin,total 0.6 mg/dL 0.2-1.0 Bilirubin,total [facility] ([facility]) alkaline phosphatase 100 U/L 45-117 Alkaline Phosph atase [facility] ([facility]) total protein 5.4 gm/dL 6.4-8.2 Below low normal Total Protein AT [facility] ([facility]) albumin 2.2 gm/dL 3.2-5.2 Below low normal Albumin [place] ( [facility]) albumin/globulin ratio Albumin/globu mar Ratio [place] ([facility]) ID Date Data Source [id number] 06/19/2020 05:02:00 AM EST [place] ([facility]) Name Value Range Interpretation Code Description Data Marla rce(s) Supporting Document(s) white blood count 5.8 10 4.0-10.0 White Blood Count [place] ([facility]) red blood count 3.88 10 4.30-6.10 Below low normal Red Blood Coun t [place] ([facility]) hemoglobin 10.9 g/dL 13.5-17.5 Below low normal Hemoglobin [place] ( [facility]) hematocrit 34.1 % 42.0-52.0 Below low normal Hematocrit [place] ( [facility]) mean corpuscular volume 87.9 fL 80.0-96.0 Mean Corpusc ular Volume [place] ([facility]) mean corpuscular hemoglobin 28.1 pg 27.0-33.0 Mean Cor puscular Hemoglobin [place] ([facility]) mean corpuscular HGB conc 32.0 g/dL 32.0-36.5 Mean Corpu scular HGB Conc [facility] ([facility]) red cell distribution width 13.4 % 11.5-14.5 Red Cell Distribution Width [place] ([facility]) platelet count, automated 211 10 150-450 Platelet C ount, Automated [facility] ([facility]) nucleated red blood cell % 0.0 % 0-0 Nucleated Red Blood Cell % [place] ([facility]) ID Date Data Source [id number] 06/18/2020 10:46:00 AM EST [place] ([facility]) Name Value Range Interpretation Code Description Data Marla rce(s) Supporting Document(s) ID Date Data Source [id number] 06/18/2020 10:46:00 AM EST [facility] ([facility]) Name Value Range Interpretation Code Description Data Marla rce(s) Supporting Document(s) ID Date Data Source [id number] 06/18/2020 10:46:00 AM EST [facility] ([facility]) Name Value Range Interpretation Code Description Data Marla rce(s) Supporting Document(s) ID Date Data Source [id number] 06/18/2020 [facility] Name Value Range Interpretation Code Description Data Marla rce(s) Supporting Document(s) ID Date Data Source [id number] 06/18/2020 10:46:00 [facility] Name Value Range Interpretation Code Description Data Marla rce(s) Supporting Document(s) ID Date Data Source [id number] 06/18/2020 10:46:00 AM EST [facility] Name Value Range Interpretation Code Description Data Marla rce(s) Supporting Document(s) SARS-CoV-2 (COVID 19) NEGATIVE - SARS-CoV-2 (COVID19) [facility] This lab was ordered by [facility] a nd reported by [facility]. ID Date Data Source [id number] 06/18/2020 05:35:00 [facility] Name Value Range Interpretation Code Description Data Marla rce(s) Supporting Document(s) platelet estimate normal normal Platelet Estimate [facility]) ID Date Data Source [id number] 06/18/2020 05:35:00 AM [facility] Name Value Range Interpretation Code Description Data Marla rce(s) Supporting Document(s) neutrophils 76 % 28-66 Above high normal Neutrophils ATHEN A ([facility]) lymphocytes 17 % 16-44 Lymphocytes [facility] ([facility]) monocytes 5 % 0-5 Monocytes [facility] ([facility]) basophils 1 % 0-1 Basophils [facility] ([facility]) atypical lymph 1 % 0-5 Atypical Lymph [facility] ([facility]) RBC morphology normal RBC Morphology [facility] ([facility]) ID Date Data Source [id number] 06/18/2020 05:35:00 AM EST [facility] ([facility]) Name Value Range Interpretation Code Description Data Marla rce(s) Supporting Document(s) white blood count 5.6 10 4.0-10.0 White Blood Count [facility] ([facility]) red blood count 3.53 10 4.30-6.10 Below low normal Red Blood Coun t [facility] ([facility]) hemoglobin 10.1 g/dL 13.5-17.5 Below low normal Hemoglobin [facility] ( [facility]) hematocrit 31.4 % 42.0-52.0 Below low normal Hematocrit [facility] ( [facility]) mean corpuscular volume 89.0 fL 80.0-96.0 Mean Corpusc ular Volume [facility] ([facility]) mean corpuscular hemoglobin 28.6 pg 27.0-33.0 Mean Cor puscular Hemoglobin [facility] ([facility]) mean corpuscular HGB conc 32.2 g/dL 32.0-36.5 Mean Corpu scular HGB Conc [facility] ([facility]) platelet count, automated 175 10 150-450 Platelet C ount, Automated [facility] ([facility]) red cell distribution width 13.6 % 11.5-14.5 Red Cell Distribution Width [facility] ([facility]) nucleated red blood cell % 0.0 % 0-0 Nucleated Red Blood Cell % [facility] ([facility]) ID Date Data Source [id number] 06/18/2020 05:35:00 AM EST [place] ([facility]) Name Value Range Interpretation Code Description Data Marla rce(s) Supporting Document(s) lipase 327 U/L 73-393 Lipase [place] ([facility]) ID Date Data Source [id number] 06/18/2020 05:35:00 AM EST [place] ([facility]) Name Value Range Interpretation Code Description Data Marla rce(s) Supporting Document(s) glucose, fasting 82 mg/dL 70-100 Glucose, Fasting AT [facility] ([facility]) blood urea nitrogen 8 mg/dL 7-18 Blood Urea Nitro gen [place] ([facility]) creatinine for GFR 0.76 mg/dL 0.70-1.30 Creatinine for GF R [place] ([facility]) glomerular filtration rate > 60.0 >60 Glomerula r Filtration Rate [place] ([facility]) sodium level 140 mEq/L 136-145 Sodium Level [place] ([facility]) potassium serum 4.0 mEq/L 3.5-5.1 Potassium Serum [facility] ([facility]) chloride level 108 mEq/L 98-107 Above high normal Chloride Level [place] ([facility]) carbon dioxide level 25 mEq/L 21-32 Carbon Dioxide Level [facility] ([facility]) anion gap 7 mEq/L 8-16 Below low normal Anion Gap [facility] ( [facility]) calcium level 7.4 mg/dL 8.5-10.1 Below low normal Calcium Level AT [facility]) AST/SGOT 33 U/L 7-37 AST/SGOT [place] ([facility]) ALT/SGPT 49 U/L 12-78 ALT/SGPT [place] ([facility]) alkaline phosphatase 98 U/L 45-117 Alkaline Phosph atase [place] ([facility]) bilirubin,total 0.8 mg/dL 0.2-1.0 Bilirubin,total [facility] ([facility]) total protein 5.2 gm/dL 6.4-8.2 Below low normal Total Protein AT [facility]) albumin 2.2 gm/dL 3.2-5.2 Below low normal Albumin [facility] ( [facility]) albumin/globulin ratio Albumin/globu mar Ratio [facility] ([facility]) ID Date Data Source [id number] 06/18/2020 05:35:00 AM EST [facility] ([facility]) Name Value Range Interpretation Code Description Data Marla rce(s) Supporting Document(s) platelet estimate normal normal Platelet Estimate [facility] ([facility]) ID Date Data Source [id number] 06/18/2020 05:35:00 AM EST [facility] ([facility]) Name Value Range Interpretation Code Description Data Marla rce(s) Supporting Document(s) lymphocytes 17 % 16-44 Lymphocytes [facility] ([facility]) neutrophils 76 % 28-66 Above high normal Neutrophils ATHEN A ([facility]) monocytes 5 % 0-5 Monocytes [facility] ([facility]) basophils 1 % 0-1 Basophils [facility] ([facility]) atypical lymph 1 % 0-5 Atypical Lymph [facility] ([facility]) RBC morphology normal RBC Morphology [facility] ([facility]) ID Date Data Source [id number] 06/18/2020 05:35:00 AM EST [facility] ([facility]) Name Value Range Interpretation Code Description Data Marla rce(s) Supporting Document(s) white blood count 5.6 10 4.0-10.0 White Blood Count [facility] ([facility]) red blood count 3.53 10 4.30-6.10 Below low normal Red Blood Coun t [facility] ([facility]) hemoglobin 10.1 g/dL 13.5-17.5 Below low normal Hemoglobin [facility] ( [facility]) hematocrit 31.4 % 42.0-52.0 Below low normal Hematocrit [facility] ( [facility]) mean corpuscular volume 89.0 fL 80.0-96.0 Mean Corpusc ular Volume [facility] ([facility]) mean corpuscular HGB conc 32.2 g/dL 32.0-36.5 Mean Corpu scular HGB Conc [facility] ([facility]) mean corpuscular hemoglobin 28.6 pg 27.0-33.0 Mean Cor puscular Hemoglobin [facility] ([facility]) red cell distribution width 13.6 % 11.5-14.5 Red Cell Distribution Width [facility] ([facility]) platelet count, automated 175 10 150-450 Platelet C ount, Automated [facility] ([facility]) nucleated red blood cell % 0.0 % 0-0 Nucleated Red Blood Cell % [place] ([facility]) ID Date Data Source [id number] 06/18/2020 05:35:00 AM EST [place] ([facility]) Name Value Range Interpretation Code Description Data Marla rce(s) Supporting Document(s) lipase 327 U/L 73-393 Lipase [facility] ([facility]) ID Date Data Source [id number] 06/18/2020 05:35:00 AM EST [facility]) Name Value Range Interpretation Code Description Data Marla rce(s) Supporting Document(s) glucose, fasting 82 mg/dL 70-100 Glucose, Fasting AT [facility]) blood urea nitrogen 8 mg/dL 7-18 Blood Urea Nitro gen [facility] ([facility]) creatinine for GFR 0.76 mg/dL 0.70-1.30 Creatinine for GF R [facility] ([facility]) sodium level 140 mEq/L 136-145 Sodium Level [facility] ([facility]) glomerular filtration rate > 60.0 >60 Glomerula r Filtration Rate [facility] ([facility]) potassium serum 4.0 mEq/L 3.5-5.1 Potassium Serum ATH NA [facility]) chloride level 108 mEq/L 98-107 Above high normal Chloride Level [place] ([facility]) carbon dioxide level 25 mEq/L 21-32 Carbon Dioxide Level [place] ([facility]) anion gap 7 mEq/L 8-16 Below low normal Anion Gap [place] ( [facility]) calcium level 7.4 mg/dL 8.5-10.1 Below low normal Calcium Level AT [facility] ([facility]) AST/SGOT 33 U/L 7-37 AST/SGOT [facility] ([facility]) ALT/SGPT 49 U/L 12-78 ALT/SGPT [facility] ([facility]) bilirubin,total 0.8 mg/dL 0.2-1.0 Bilirubin,total ATHE NA ([facility]) alkaline phosphatase 98 U/L 45-117 Alkaline Phosph atase [facility] ([facility]) total protein 5.2 gm/dL 6.4-8.2 Below low normal Total Protein AT [facility] ([facility]) albumin 2.2 gm/dL 3.2-5.2 Below low normal Albumin [facility] ( [facility]) albumin/globulin ratio Albumin/globu mar Ratio [facility] ([facility]) ID Date Data Source [id number] 06/18/2020 05:35:00 AM EST [place] ([facility]) Name Value Range Interpretation Code Description Data Marla rce(s) Supporting Document(s) platelet estimate normal normal Platelet Estimate [facility] ([facility]) ID Date Data Source [id number] 06/18/2020 05:35:00 AM EST [place] ([facility]) Name Value Range Interpretation Code Description Data Marla rce(s) Supporting Document(s) neutrophils 76 % 28-66 Above high normal Neutrophils ATHEN A ([facility]) lymphocytes 17 % 16-44 Lymphocytes [facility] ([facility]) monocytes 5 % 0-5 Monocytes [facility] ([facility]) basophils 1 % 0-1 Basophils [facility] ([facility]) atypical lymph 1 % 0-5 Atypical Lymph [facility] ([facility]) RBC morphology normal RBC Morphology [facility] ([facility]) ID Date Data Source [id number] 06/18/2020 05:35:00 AM EST [place] ([facility]) Name Value Range Interpretation Code Description Data Marla rce(s) Supporting Document(s) white blood count 5.6 10 4.0-10.0 White Blood Count [facility] ([facility]) red blood count 3.53 10 4.30-6.10 Below low normal Red Blood Coun t [place] ([facility]) hematocrit 31.4 % 42.0-52.0 Below low normal Hematocrit [place] ( [facility]) hemoglobin 10.1 g/dL 13.5-17.5 Below low normal Hemoglobin [place] ( [facility]) mean corpuscular hemoglobin 28.6 pg 27.0-33.0 Mean Cor puscular Hemoglobin [place] ([facility]) mean corpuscular volume 89.0 fL 80.0-96.0 Mean Corpusc ular Volume [place] ([facility]) mean corpuscular HGB conc 32.2 g/dL 32.0-36.5 Mean Corpu scular HGB Conc [place] ([facility]) platelet count, automated 175 10 150-450 Platelet C ount, Automated [place] ([facility]) red cell distribution width 13.6 % 11.5-14.5 Red Cell Distribution Width [place] ([facility]) nucleated red blood cell % 0.0 % 0-0 Nucleated Red Blood Cell % [place] ([facility]) ID Date Data Source [id number] 06/18/2020 05:35:00 AM EST [place] ([facility]) Name Value Range Interpretation Code Description Data Marla rce(s) Supporting Document(s) lipase 327 U/L 73-393 Lipase [place] ([facility]) ID Date Data Source [id number] 06/18/2020 05:35:00 AM EST [place] ([facility]) Name Value Range Interpretation Code Description Data Marla rce(s) Supporting Document(s) glucose, fasting 82 mg/dL 70-100 Glucose, Fasting AT [facility] ([facility]) blood urea nitrogen 8 mg/dL 7-18 Blood Urea Nitro gen [facility] ([facility]) creatinine for GFR 0.76 mg/dL 0.70-1.30 Creatinine for GF R [facility] ([facility]) glomerular filtration rate > 60.0 >60 Glomerula r Filtration Rate [facility] ([facility]) sodium level 140 mEq/L 136-145 Sodium Level [facility] (No [facility] hospital) potassium serum 4.0 mEq/L 3.5-5.1 Potassium Serum [facility] ([facility]) carbon dioxide level 25 mEq/L 21-32 Carbon Dioxide Level [facility] ([facility]) chloride level 108 mEq/L 98-107 Above high normal Chloride Level [facility] ([facility]) calcium level 7.4 mg/dL 8.5-10.1 Below low normal Calcium Level AT [facility] ([facility]) anion gap 7 mEq/L 8-16 Below low normal Anion Gap [facility] ( [facility]) AST/SGOT 33 U/L 7-37 AST/SGOT [facility] ([facility]) ALT/SGPT 49 U/L 12-78 ALT/SGPT [place] ([facility]) alkaline phosphatase 98 U/L 45-117 Alkaline Phosph atase [facility] ([facility]) total protein 5.2 gm/dL 6.4-8.2 Below low normal Total Protein AT [facility]) bilirubin,total 0.8 mg/dL 0.2-1.0 Bilirubin,total [facility] ([facility]) albumin 2.2 gm/dL 3.2-5.2 Below low normal Albumin [place] ( [facility]) albumin/globulin ratio Albumin/globu mar Ratio [facility] ([facility]) ID Date Data Source [id number] 06/18/2020 05:35:00 AM EST [place] ([facility]) Name Value Range Interpretation Code Description Data Marla rce(s) Supporting Document(s) platelet estimate normal normal Platelet Estimate [facility] ([facility]) ID Date Data Source [id number] 06/18/2020 05:35:00 AM EST [place] ([facility]) Name Value Range Interpretation Code Description Data Marla rce(s) Supporting Document(s) lymphocytes 17 % 16-44 Lymphocytes [facility] ([facility]) neutrophils 76 % 28-66 Above high normal Neutrophils ATHEN A ([facility]) monocytes 5 % 0-5 Monocytes [facility] ([facility]) basophils 1 % 0-1 Basophils [facility] ([facility]) atypical lymph 1 % 0-5 Atypical Lymph [facility] ([facility]) RBC morphology normal RBC Morphology [facility] ([facility]) ID Date Data Source [id number] 06/18/2020 05:35:00 AM EST [place] ([facility]) Name Value Range Interpretation Code Description Data Marla rce(s) Supporting Document(s) white blood count 5.6 10 4.0-10.0 White Blood Count [facility] ([facility]) red blood count 3.53 10 4.30-6.10 Below low normal Red Blood Coun t [facility] ([facility]) hemoglobin 10.1 g/dL 13.5-17.5 Below low normal Hemoglobin [place] ( [facility]) mean corpuscular volume 89.0 fL 80.0-96.0 Mean Corpusc ular Volume [facility] ([facility]) hematocrit 31.4 % 42.0-52.0 Below low normal Hematocrit [facility] ( [facility]) mean corpuscular hemoglobin 28.6 pg 27.0-33.0 Mean Cor puscular Hemoglobin [facility] ([facility]) mean corpuscular HGB conc 32.2 g/dL 32.0-36.5 Mean Corpu scular HGB Conc [facility] ([facility]) red cell distribution width 13.6 % 11.5-14.5 Red Cell Distribution Width [facility] ([facility]) nucleated red blood cell % 0.0 % 0-0 Nucleated Red Blood Cell % [facility] ([facility]) platelet count, automated 175 10 150-450 Platelet C ount, Automated [place] ([facility]) ID Date Data Source [id number] 06/18/2020 05:35:00 AM EST [place] ([facility]) Name Value Range Interpretation Code Description Data Marla rce(s) Supporting Document(s) lipase 327 U/L 73-393 Lipase [place] ([facility]) ID Date Data Source [id number] 06/18/2020 05:35:00 AM EST [place] ([facility]) Name Value Range Interpretation Code Description Data Marla rce(s) Supporting Document(s) glucose, fasting 82 mg/dL 70-100 Glucose, Fasting AT [facility]) blood urea nitrogen 8 mg/dL 7-18 Blood Urea Nitro gen [place] ([facility]) creatinine for GFR 0.76 mg/dL 0.70-1.30 Creatinine for GF R [place] ([facility]) glomerular filtration rate > 60.0 >60 Glomerula r Filtration Rate [place] ([facility]) sodium level 140 mEq/L 136-145 Sodium Level [place] ([facility]) potassium serum 4.0 mEq/L 3.5-5.1 Potassium Serum [facility]) chloride level 108 mEq/L 98-107 Above high normal Chloride Level [place] ([facility]) carbon dioxide level 25 mEq/L 21-32 Carbon Dioxide Level [place] ([facility]) calcium level 7.4 mg/dL 8.5-10.1 Below low normal Calcium Level AT [facility]) anion gap 7 mEq/L 8-16 Below low normal Anion Gap [facility] ( [facility]) ALT/SGPT 49 U/L 12-78 ALT/SGPT [facility] ([facility]) AST/SGOT 33 U/L 7-37 AST/SGOT [place] ([facility]) alkaline phosphatase 98 U/L 45-117 Alkaline Phosph atase [facility] ([facility]) bilirubin,total 0.8 mg/dL 0.2-1.0 Bilirubin,total [facility] ([facility]) total protein 5.2 gm/dL 6.4-8.2 Below low normal Total Protein AT [facility] ([facility]) albumin 2.2 gm/dL 3.2-5.2 Below low normal Albumin [facility] ( [facility]) albumin/globulin ratio Albumin/globu mar Ratio [facility] ([facility]) ID Date Data Source [id number] 06/18/2020 05:35:00 AM EST [place] ([facility]) Name Value Range Interpretation Code Description Data Marla rce(s) Supporting Document(s) platelet estimate normal normal Platelet Estimate [facility] ([facility]) ID Date Data Source [id number] 06/18/2020 05:35:00 AM EST [place] ([facility]) Name Value Range Interpretation Code Description Data Marla rce(s) Supporting Document(s) neutrophils 76 % 28-66 Above high normal Neutrophils ATHEN A ([facility]) monocytes 5 % 0-5 Monocytes [facility] ([facility]) lymphocytes 17 % 16-44 Lymphocytes [facility] ([facility]) basophils 1 % 0-1 Basophils [facility] ([facility]) atypical lymph 1 % 0-5 Atypical Lymph [facility] ([facility]) RBC morphology normal RBC Morphology [facility] ([facility]) ID Date Data Source [id number] 06/18/2020 05:35:00 AM EST [place] ([facility]) Name Value Range Interpretation Code Description Data Marla rce(s) Supporting Document(s) white blood count 5.6 10 4.0-10.0 White Blood Count [facility] ([facility]) red blood count 3.53 10 4.30-6.10 Below low normal Red Blood Coun t [facility] ([facility]) hemoglobin 10.1 g/dL 13.5-17.5 Below low normal Hemoglobin [facility] ( [facility]) hematocrit 31.4 % 42.0-52.0 Below low normal Hematocrit [facility] ( [facility]) mean corpuscular volume 89.0 fL 80.0-96.0 Mean Corpusc ular Volume [facility] ([facility]) mean corpuscular hemoglobin 28.6 pg 27.0-33.0 Mean Cor puscular Hemoglobin [place] ([facility]) red cell distribution width 13.6 % 11.5-14.5 Red Cell Distribution Width [facility] ([facility]) mean corpuscular HGB conc 32.2 g/dL 32.0-36.5 Mean Corpu scular HGB Conc [facility] ([facility]) nucleated red blood cell % 0.0 % 0-0 Nucleated Red Blood Cell % [place] ([facility]) platelet count, automated 175 10 150-450 Platelet C ount, Automated [facility]) ID Date Data Source [id number] 06/18/2020 05:35:00 AM EST [place] ([facility]) Name Value Range Interpretation Code Description Data Marla rce(s) Supporting Document(s) lipase 327 U/L 73-393 Lipase [place] ([facility]) ID Date Data Source [id number] 06/18/2020 05:35:00 AM EST [facility]) Name Value Range Interpretation Code Description Data Marla rce(s) Supporting Document(s) glucose, fasting 82 mg/dL 70-100 Glucose, Fasting AT [facility]) blood urea nitrogen 8 mg/dL 7-18 Blood Urea Nitro gen [facility] ([facility]) creatinine for GFR 0.76 mg/dL 0.70-1.30 Creatinine for GF R [place] ([facility]) glomerular filtration rate > 60.0 >60 Glomerula r Filtration Rate [facility] ([facility]) sodium level 140 mEq/L 136-145 Sodium Level [facility] (No [facility]) potassium serum 4.0 mEq/L 3.5-5.1 Potassium Serum ATH NA ([facility]) chloride level 108 mEq/L 98-107 Above high normal Chloride Level [facility] ([facility]) carbon dioxide level 25 mEq/L 21-32 Carbon Dioxide Level [facility] ([facility]) anion gap 7 mEq/L 8-16 Below low normal Anion Gap [facility] ( [facility]) AST/SGOT 33 U/L 7-37 AST/SGOT [facility] ([facility]) calcium level 7.4 mg/dL 8.5-10.1 Below low normal Calcium Level AT [facility] ([facility]) ALT/SGPT 49 U/L 12-78 ALT/SGPT [facility] ([facility]) alkaline phosphatase 98 U/L 45-117 Alkaline Phosph atase [facility] ([facility]) bilirubin,total 0.8 mg/dL 0.2-1.0 Bilirubin,total [facility] ([facility]) total protein 5.2 gm/dL 6.4-8.2 Below low normal Total Protein AT [facility] ([facility]) albumin 2.2 gm/dL 3.2-5.2 Below low normal Albumin [facility] ( [facility]) albumin/globulin ratio Albumin/globu mar Ratio [place] ([facility]) ID Date Data Source [id number] 06/17/2020 07:47:00 AM EST [place] ([facility]) Name Value Range Interpretation Code Description Data Marla rce(s) Supporting Document(s) magnesium level 1.7 mg/dL 1.8-2.4 Below low normal Magnesium Leve l [facility] ([facility]) ID Date Data Source [id number] 06/17/2020 07:47:00 AM EST [place] ([facility]) Name Value Range Interpretation Code Description Data Marla rce(s) Supporting Document(s) phosphorus level 2.8 mg/dL 2.5-4.[address] [facility] ([facility]) ID Date Data Source [id number] 06/17/2020 07:47:00 AM EST [facility]) Name Value Range Interpretation Code Description Data Marla rce(s) Supporting Document(s) glucose, fasting 99 mg/dL 70-100 Glucose, Fasting AT [facility] ([facility]) creatinine for GFR 1.12 mg/dL 0.70-1.30 Creatinine for GF R [place] ([facility]) blood urea nitrogen 13 mg/dL 7-18 Blood Urea Nitro gen [facility] ([facility]) sodium level 139 mEq/L 136-145 Sodium Level [facility] (No [facility]) glomerular filtration rate > 60.0 >60 Glomerula r Filtration Rate [facility] ([facility]) potassium serum 4.0 mEq/L 3.5-5.1 Potassium Serum [facility] ([facility]) carbon dioxide level 25 mEq/L 21-32 Carbon Dioxide Level [place] ([facility]) chloride level 107 mEq/L 98-107 Chloride Level [place] ([facility]) anion gap 7 mEq/L 8-16 Below low normal Anion Gap [place] ( [facility]) AST/SGOT 51 U/L 7-37 Above high normal AST/SGOT [place] ([facility]) calcium level 7.2 mg/dL 8.5-10.1 Below low normal Calcium Level AT [facility]) ALT/SGPT 63 U/L 12-78 ALT/SGPT [place] ([facility]) alkaline phosphatase 98 U/L 45-117 Alkaline Phosph atase [place] ([facility]) bilirubin,total 0.9 mg/dL 0.2-1.0 Bilirubin,total ATHE [facility]) albumin 2.3 gm/dL 3.2-5.2 Below low normal Albumin [place] ( [facility]) total protein 5.3 gm/dL 6.4-8.2 Below low normal Total Protein AT [facility]) albumin/globulin ratio Albumin/globu mar Ratio [place] ([facility]) ID Date Data Source [id number] 06/17/2020 07:47:00 AM EST [facility]) Name Value Range Interpretation Code Description Data Marla rce(s) Supporting Document(s) white blood count 11.3 10 4.0-10.0 Above high normal White Blood Count [facility] ([facility]) red blood count 3.88 10 4.30-6.10 Below low normal Red Blood Coun t [facility] ([facility]) hemoglobin 11.0 g/dL 13.5-17.5 Below low normal Hemoglobin [facility] ( [facility]) mean corpuscular volume 89.2 fL 80.0-96.0 Mean Corpusc ular Volume [facility] ([facility]) hematocrit 34.6 % 42.0-52.0 Below low normal Hematocrit [place] ( [facility]) mean corpuscular hemoglobin 28.4 pg 27.0-33.0 Mean Cor puscular Hemoglobin [place] ([facility]) mean corpuscular HGB conc 31.8 g/dL 32.0-36.5 Below low darrel l Mean Corpuscular HGB Conc [place] ([facility]) red cell distribution width 13.7 % 11.5-14.5 Red Cell Distribution Width [place] ([facility]) platelet count, automated 256 10 150-450 Platelet C ount, Automated [place] ([facility]) nucleated red blood cell % 0.0 % 0-0 Nucleated Red Blood Cell % [place] ([facility]) ID Date Data Source [id number] 06/17/2020 07:47:00 AM EST [facility]) Name Value Range Interpretation Code Description Data Marla rce(s) Supporting Document(s) magnesium level 1.7 mg/dL 1.8-2.4 Below low normal Magnesium Leve l [place] ([facility]) ID Date Data Source [id number] 06/17/2020 07:47:00 AM EST [place] ([facility]) Name Value Range Interpretation Code Description Data Marla rce(s) Supporting Document(s) phosphorus level 2.8 mg/dL 2.5-4.9 Phosphorus Level AT [facility]) ID Date Data Source [id number] 06/17/2020 07:47:00 AM EST [place] ([facility]) Name Value Range Interpretation Code Description Data Marla rce(s) Supporting Document(s) glucose, fasting 99 mg/dL 70-100 Glucose, Fasting AT [facility]) blood urea nitrogen 13 mg/dL 7-18 Blood Urea Nitro gen [place] ([facility]) creatinine for GFR 1.12 mg/dL 0.70-1.30 Creatinine for GF R [place] ([facility]) glomerular filtration rate > 60.0 >60 Glomerula r Filtration Rate [place] ([facility]) sodium level 139 mEq/L 136-145 Sodium Level [place] ([facility]) potassium serum 4.0 mEq/L 3.5-5.1 Potassium Serum [facility] NA ([facility]) chloride level 107 mEq/L 98-107 Chloride Level [place] ([facility]) carbon dioxide level 25 mEq/L 21-32 Carbon Dioxide Level [place] ([facility]) anion gap 7 mEq/L 8-16 Below low normal Anion Gap [place] ( [facility]) calcium level 7.2 mg/dL 8.5-10.1 Below low normal Calcium Level AT [facility]) AST/SGOT 51 U/L 7-37 Above high normal AST/SGOT [place] ([facility]) ALT/SGPT 63 U/L 12-78 ALT/SGPT [place] ([facility]) alkaline phosphatase 98 U/L 45-117 Alkaline Phosph atase [facility] ([facility]) bilirubin,total 0.9 mg/dL 0.2-1.0 Bilirubin,total [facility] ([facility]) total protein 5.3 gm/dL 6.4-8.2 Below low normal Total Protein AT [facility]) albumin 2.3 gm/dL 3.2-5.2 Below low normal Albumin [facility] ( [facility]) albumin/globulin ratio Albumin/globu mar Ratio [facility]) ID Date Data Source [id number] 06/17/2020 07:47:00 AM EST [place] ([facility]) Name Value Range Interpretation Code Description Data Marla rce(s) Supporting Document(s) white blood count 11.3 10 4.0-10.0 Above high normal White Blood Count [facility] ([facility]) red blood count 3.88 10 4.30-6.10 Below low normal Red Blood Coun t [facility] ([facility]) hemoglobin 11.0 g/dL 13.5-17.5 Below low normal Hemoglobin [facility] ( [facility]) hematocrit 34.6 % 42.0-52.0 Below low normal Hematocrit [place] ( [facility]) mean corpuscular volume 89.2 fL 80.0-96.0 Mean Corpusc ular Volume [place] ([facility]) mean corpuscular hemoglobin 28.4 pg 27.0-33.0 Mean Cor puscular Hemoglobin [place] ([facility]) mean corpuscular HGB conc 31.8 g/dL 32.0-36.5 Below low darrel l Mean Corpuscular HGB Conc [facility] ([facility]) red cell distribution width 13.7 % 11.5-14.5 Red Cell Distribution Width [place] ([facility]) platelet count, automated 256 10 150-450 Platelet C ount, Automated [facility] ([facility]) nucleated red blood cell % 0.0 % 0-0 Nucleated Red Blood Cell % [place] ([facility]) ID Date Data Source [id number] 06/17/2020 07:47:00 AM EST [place] ([facility]) Name Value Range Interpretation Code Description Data Marla rce(s) Supporting Document(s) magnesium level 1.7 mg/dL 1.8-2.4 Below low normal Magnesium Leve l [place] ([facility]) ID Date Data Source [id number] 06/17/2020 07:47:00 AM EST [place] ([facility]) Name Value Range Interpretation Code Description Data Marla rce(s) Supporting Document(s) phosphorus level 2.8 mg/dL 2.5-4.9 Phosphorus Level AT [facility]) ID Date Data Source [id number] 06/17/2020 07:47:00 AM EST [facility]) Name Value Range Interpretation Code Description Data Marla rce(s) Supporting Document(s) glucose, fasting 99 mg/dL 70-100 Glucose, Fasting AT [facility]) blood urea nitrogen 13 mg/dL 7-18 Blood Urea Nitro gen [place] ([facility]) creatinine for GFR 1.12 mg/dL 0.70-1.30 Creatinine for GF R [place] ([facility]) glomerular filtration rate > 60.0 >60 Glomerula r Filtration Rate [place] ([facility]) sodium level 139 mEq/L 136-145 Sodium Level [place] ([facility]) chloride level 107 mEq/L 98-107 Chloride Level [place] ([facility]) potassium serum 4.0 mEq/L 3.5-5.1 Potassium Serum [facility] ([facility]) carbon dioxide level 25 mEq/L 21-32 Carbon Dioxide Level [facility]) anion gap 7 mEq/L 8-16 Below low normal Anion Gap [place] ( [facility]) calcium level 7.2 mg/dL 8.5-10.1 Below low normal Calcium Level AT [facility]) AST/SGOT 51 U/L 7-37 Above high normal AST/SGOT [facility]) ALT/SGPT 63 U/L 12-78 ALT/SGPT [place] ([facility]) bilirubin,total 0.9 mg/dL 0.2-1.0 [facility] alkaline phosphatase 98 U/L 45-117 Alkaline Phosph atase [facility]) total protein 5.3 gm/dL 6.4-8.2 Below low normal Total Protein AT [facility]) albumin 2.3 gm/dL 3.2-5.2 Below low normal Albumin [facility] ( [facility]) albumin/globulin ratio Albumin/globu mar Ratio [facility] ([facility]) ID Date Data Source [id number] 06/17/2020 07:47:00 AM EST [place] ([facility]) Name Value Range Interpretation Code Description Data Marla rce(s) Supporting Document(s) white blood count 11.3 10 4.0-10.0 Above high normal White Blood Count [facility] ([facility]) red blood count 3.88 10 4.30-6.10 Below low normal Red Blood Coun t [facility] ([facility]) hemoglobin 11.0 g/dL 13.5-17.5 Below low normal Hemoglobin [facility] ( [facility]) hematocrit 34.6 % 42.0-52.0 Below low normal Hematocrit [facility] ( [facility]) mean corpuscular hemoglobin 28.4 pg 27.0-33.0 Mean Cor puscular Hemoglobin [facility] ([facility]) mean corpuscular volume 89.2 fL 80.0-96.0 Mean Corpusc ular Volume [facility] ([facility]) red cell distribution width 13.7 % 11.5-14.5 Red Cell Distribution Width [facility] ([facility]) mean corpuscular HGB conc 31.8 g/dL 32.0-36.5 Below low darrel l Mean Corpuscular HGB Conc [facility] ([facility]) platelet count, automated 256 10 150-450 Platelet C ount, Automated [place] ([facility]) nucleated red blood cell % 0.0 % 0-0 Nucleated Red Blood Cell % [facility] ([facility]) ID Date Data Source [id number] 06/17/2020 07:47:00 AM EST [place] ([facility]) Name Value Range Interpretation Code Description Data Marla rce(s) Supporting Document(s) magnesium level 1.7 mg/dL 1.8-2.4 Below low normal Magnesium Leve l [facility] ([facility]) ID Date Data Source [id number] 06/17/2020 07:47:00 AM EST [place] ([facility]) Name Value Range Interpretation Code Description Data Marla rce(s) Supporting Document(s) phosphorus level 2.8 mg/dL 2.5-4.9 Phosphorus Level AT [facility]) ID Date Data Source [id number] 06/17/2020 07:47:00 AM EST [place] ([facility]) Name Value Range Interpretation Code Description Data Marla rce(s) Supporting Document(s) glucose, fasting 99 mg/dL 70-100 Glucose, Fasting AT [facility] ([facility]) blood urea nitrogen 13 mg/dL 7-18 Blood Urea Nitro gen [facility] ([facility]) creatinine for GFR 1.12 mg/dL 0.70-1.30 Creatinine for GF R [facility] ([facility]) glomerular filtration rate > 60.0 >60 Glomerula r Filtration Rate [facility] ([facility]) potassium serum 4.0 mEq/L 3.5-5.1 Potassium Serum [facility] ([facility]) sodium level 139 mEq/L 136-145 Sodium Level [facility] ([facility]) chloride level 107 mEq/L 98-107 Chloride Level [facility] ([facility]) anion gap 7 mEq/L 8-16 Below low normal Anion Gap [facility] ( [facility]) carbon dioxide level 25 mEq/L 21-32 Carbon Dioxide Level [facility] ([facility]) AST/SGOT 51 U/L 7-37 Above high normal AST/SGOT [facility] ([facility]) calcium level 7.2 mg/dL 8.5-10.1 Below low normal Calcium Level AT [facility] ([facility]) alkaline phosphatase 98 U/L 45-117 Alkaline Phosph atase [facility] ([facility]) ALT/SGPT 63 U/L 12-78 ALT/SGPT [facility] ([facility]) bilirubin,total 0.9 mg/dL 0.2-1.0 Bilirubin,total [facility] ([facility]) total protein 5.3 gm/dL 6.4-8.2 Below low normal Total Protein AT [facility] ([facility]) albumin 2.3 gm/dL 3.2-5.2 Below low normal Albumin [facility] ( [facility]) albumin/globulin ratio Albumin/globu mar Ratio [facility] ([facility]) ID Date Data Source [id number] 06/17/2020 07:47:00 AM EST [place] ([facility]) Name Value Range Interpretation Code Description Data Marla rce(s) Supporting Document(s) white blood count 11.3 10 4.0-10.0 Above high normal White Blood Count [facility] ([facility]) red blood count 3.88 10 4.30-6.10 Below low normal Red Blood Coun t [facility] ([facility]) hematocrit 34.6 % 42.0-52.0 Below low normal Hematocrit [facility] ( [facility]) hemoglobin 11.0 g/dL 13.5-17.5 Below low normal Hemoglobin [facility] ( [facility]) mean corpuscular volume 89.2 fL 80.0-96.0 Mean Corpusc ular Volume [facility] ([facility]) mean corpuscular hemoglobin 28.4 pg 27.0-33.0 Mean Cor puscular Hemoglobin [facility] ([facility]) red cell distribution width 13.7 % 11.5-14.5 Red Cell Distribution Width [facility] ([facility]) mean corpuscular HGB conc 31.8 g/dL 32.0-36.5 Below low darrel l Mean Corpuscular HGB Conc [facility] ([facility]) nucleated red blood cell % 0.0 % 0-0 Nucleated Red Blood Cell % [facility] ([facility]) platelet count, automated 256 10 150-450 Platelet C ount, Automated [facility] ([facility]) ID Date Data Source [id number] 06/17/2020 07:47:00 AM EST [place] ([facility]) Name Value Range Interpretation Code Description Data Marla rce(s) Supporting Document(s) magnesium level 1.7 mg/dL 1.8-2.4 Below low normal Magnesium Leve l [facility] ([facility]) ID Date Data Source [id number] 06/17/2020 07:47:00 AM EST [place] ([facility]) Name Value Range Interpretation Code Description Data Marla rce(s) Supporting Document(s) phosphorus level 2.8 mg/dL 2.5-4.9 Phosphorus Level AT [facility]) ID Date Data Source [id number] 06/17/2020 07:47:00 AM EST [place] ([facility]) Name Value Range Interpretation Code Description Data Marla rce(s) Supporting Document(s) glucose, fasting 99 mg/dL 70-100 Glucose, Fasting AT [facility]) blood urea nitrogen 13 mg/dL 7-18 Blood Urea Nitro gen [place] ([facility]) creatinine for GFR 1.12 mg/dL 0.70-1.30 Creatinine for GF R [facility] ([facility]) glomerular filtration rate > 60.0 >60 Glomerula r Filtration Rate [facility] ([facility]) sodium level 139 mEq/L 136-145 Sodium Level [facility] ([facility]) potassium serum 4.0 mEq/L 3.5-5.1 Potassium Serum [facility] ([facility]) chloride level 107 mEq/L 98-107 Chloride Level [place] ([facility]) carbon dioxide level 25 mEq/L 21-32 Carbon Dioxide Level [facility] ([facility]) anion gap 7 mEq/L 8-16 Below low normal Anion Gap [place] ( [facility]) calcium level 7.2 mg/dL 8.5-10.1 Below low normal Calcium Level AT [facility]) AST/SGOT 51 U/L 7-37 Above high normal AST/SGOT [place] ([facility]) ALT/SGPT 63 U/L 12-78 ALT/SGPT [facility] ([facility]) bilirubin,total 0.9 mg/dL 0.2-1.0 Bilirubin,total [facility] ([facility]) alkaline phosphatase 98 U/L 45-117 Alkaline Phosph atase [facility] ([facility]) total protein 5.3 gm/dL 6.4-8.2 Below low normal Total Protein AT [facility] ([facility]) albumin 2.3 gm/dL 3.2-5.2 Below low normal Albumin [facility] ( [facility]) albumin/globulin ratio Albumin/globu mar Ratio [facility] ([facility]) ID Date Data Source [id number] 06/17/2020 07:47:00 AM EST [place] ([facility]) Name Value Range Interpretation Code Description Data Marla rce(s) Supporting Document(s) white blood count 11.3 10 4.0-10.0 Above high normal White Blood Count [facility] ([facility]) red blood count 3.88 10 4.30-6.10 Below low normal Red Blood Coun t [place] ([facility]) hematocrit 34.6 % 42.0-52.0 Below low normal Hematocrit [facility] ( [facility]) hemoglobin 11.0 g/dL 13.5-17.5 Below low normal Hemoglobin [facility] ( [facility]) mean corpuscular hemoglobin 28.4 pg 27.0-33.0 Mean Cor puscular Hemoglobin [facility] ([facility]) mean corpuscular volume 89.2 fL 80.0-96.0 Mean Corpusc ular Volume [facility] ([facility]) red cell distribution width 13.7 % 11.5-14.5 Red Cell Distribution Width [facility] ([facility]) mean corpuscular HGB conc 31.8 g/dL 32.0-36.5 Below low darrel l Mean Corpuscular HGB Conc [facility] ([facility]) platelet count, automated 256 10 150-450 Platelet C ount, Automated [facility] ([facility]) nucleated red blood cell % 0.0 % 0-0 Nucleated Red Blood Cell % [facility] ([facility]) ID Date Data Source [id number] 06/16/2020 01:47:00 PM EST [facility] ([facility]) Name Value Range Interpretation Code Description Data Marla rce(s) Supporting Document(s) lipase 450 U/L 73-393 Above high normal Lipase [facility] ([facility]) ID Date Data Source [id number] 06/16/2020 01:47:00 PM EST [facility] ([facility]) Name Value Range Interpretation Code Description Data Marla rce(s) Supporting Document(s) glucose, fasting 112 mg/dL 70-100 Above high normal Glucose, Fas ting [facility] ([facility]) blood urea nitrogen 8 mg/dL 7-18 Blood Urea Nitro gen [facility] ([facility]) creatinine for GFR 1.32 mg/dL 0.70-1.30 Above high normal Creatinine for GFR [facility] ([facility]) glomerular filtration rate > 60.0 >60 Glomerula r Filtration Rate [place] ([facility]) potassium serum 4.0 mEq/L 3.5-5.1 Potassium Serum [facility] ([facility]) sodium level 136 mEq/L 136-145 Sodium Level [facility] ([facility]) carbon dioxide level 27 mEq/L 21-32 Carbon Dioxide Level [facility] ([facility]) chloride level 102 mEq/L 98-107 Chloride Level [place] ([facility]) anion gap 7 mEq/L 8-16 Below low normal Anion Gap [facility] ( [facility]) calcium level 8.9 mg/dL 8.5-10.1 Calcium Level [place] ( [facility]) ID Date Data Source [id number] 06/16/2020 01:47:00 PM EST [facility] ([facility]) Name Value Range Interpretation Code Description Data Marla rce(s) Supporting Document(s) AST/SGOT 51 U/L 7-37 Above high normal AST/SGOT [facility] ([facility]) alkaline phosphatase 116 U/L 45-117 Alkaline Phosph atase [facility] ([facility]) ALT/SGPT 74 U/L 12-78 ALT/SGPT [facility] ([facility]) bilirubin,direct 0.8 mg/dL 0.0-0.2 Above high normal Bilirubin,di rect [facility] ([facility]) bilirubin,total 1.1 mg/dL 0.2-1.0 Above high normal Bilirubin,tot al [facility] ([facility]) albumin 3.1 gm/dL 3.2-5.2 Below low normal Albumin [facility] ( [facility]) total protein 6.7 gm/dL 6.4-8.2 Total Protein [facility] ( [facility]) albumin/globulin ratio Albumin/globu mar Ratio [facility] ([facility]) ID Date Data Source [id number] 06/16/2020 01:47:00 PM EST [facility] ([facility]) Name Value Range Interpretation Code Description Data Marla rce(s) Supporting Document(s) prothrombin time 15.5 seconds 12.5-14.3 Above high normal Prothrombi n Time [facility] ([facility]) INR Inr [facility] ([facility]) ID Date Data Source [id number] 06/16/2020 01:47:00 PM EST [place] ([facility]) Name Value Range Interpretation Code Description Data Marla rce(s) Supporting Document(s) white blood count 18.6 10 4.0-10.0 Above high normal White Blood Count [facility] ([facility]) hemoglobin 12.9 g/dL 13.5-17.5 Below low normal Hemoglobin [facility] ( [facility]) red blood count 4.43 10 4.30-6.10 Red Blood Count [facility] ([facility]) mean corpuscular volume 87.8 fL 80.0-96.0 Mean Corpusc ular Volume [facility] ([facility]) hematocrit 38.9 % 42.0-52.0 Below low normal Hematocrit [facility] ( [facility]) mean corpuscular hemoglobin 29.1 pg 27.0-33.0 Mean Cor puscular Hemoglobin [facility] ([facility]) mean corpuscular HGB conc 33.2 g/dL 32.0-36.5 Mean Corpu scular HGB Conc [facility] ([facility]) red cell distribution width 13.3 % 11.5-14.5 Red Cell Distribution Width [facility] ([facility]) neutrophils % 93.0 % 36.0-66.0 Above high normal Neutrophils % [facility] ([facility]) platelet count, automated 347 10 150-450 Platelet C ount, Automated [place] ([facility]) lymph % 1.7 % 24.0-44.0 Below low normal Lymph % [facility] ( [facility]) mono % 4.0 % 2.0-8.0 [place] % [facility] ([facility]) baso % 0.2 % 0.0-1.0 Baso % [facility] ([facility]) eos % 0.0 % 0.0-3.0 Eos % [facility] ([facility]) immature granulocyte % 1.1 % 0-3.0 Immature Gran ulocyte % [facility] ([facility]) nucleated red blood cell % 0.0 % 0-0 Nucleated Red Blood Cell % [facility] ([facility]) neutrophils # 17.3 10 1.5-8.5 Above high normal Neutrophils # [facility] ([facility]) lymph # 0.3 10 1.5-5.0 Below low normal Lymph # [facility] ( [facility]) mono # 0.8 10 0.0-0.8 [place] # [facility] ([facility]) baso # 0.0 10 0.0-0.2 Baso # [facility] ([facility]) eos # 0.0 10 0.0-0.5 Eos # [facility] ([facility]) ID Date Data Source [id number] 06/16/2020 01:47:00 PM EST [place] ([facility]) Name Value Range Interpretation Code Description Data Marla rce(s) Supporting Document(s) lipase 450 U/L 73-393 Above high normal Lipase [facility] ([facility]) ID Date Data Source [id number] 06/16/2020 01:47:00 PM EST [facility] ([facility]) Name Value Range Interpretation Code Description Data Marla rce(s) Supporting Document(s) blood urea nitrogen 8 mg/dL 7-18 Blood Urea Nitro gen [facility] ([facility]) glucose, fasting 112 mg/dL 70-100 Above high normal Glucose, Fas ting [facility] ([facility]) creatinine for GFR 1.32 mg/dL 0.70-1.30 Above high normal Creatinine for GFR [facility] ([facility]) glomerular filtration rate > 60.0 >60 Glomerula r Filtration Rate [facility] ([facility]) potassium serum 4.0 mEq/L 3.5-5.1 Potassium Serum [facility] ([facility]) sodium level 136 mEq/L 136-145 Sodium Level [facility] ([facility] chloride level 102 mEq/L 98-107 Chloride Level [place] ([facility]) carbon dioxide level 27 mEq/L 21-32 Carbon Dioxide Level [facility] ([facility]) anion gap 7 mEq/L 8-16 Below low normal Anion Gap [place] ( [facility]) calcium level 8.9 mg/dL 8.5-10.1 Calcium Level [place] ( [facility]) ID Date Data Source [id number] 06/16/2020 01:47:00 PM EST [place] ([facility]) Name Value Range Interpretation Code Description Data Marla rce(s) Supporting Document(s) AST/SGOT 51 U/L 7-37 Above high normal AST/SGOT [place] ([facility]) ALT/SGPT 74 U/L 12-78 ALT/SGPT [facility] ([facility]) alkaline phosphatase 116 U/L 45-117 Alkaline Phosph atase [facility] ([facility]) bilirubin,total 1.1 mg/dL 0.2-1.0 Above high normal Bilirubin,tot al [facility] ([facility]) total protein 6.7 gm/dL 6.4-8.2 Total Protein [place] ( [facility]) bilirubin,direct 0.8 mg/dL 0.0-0.2 Above high normal Bilirubin,di rect [facility] ([facility]) albumin 3.1 gm/dL 3.2-5.2 Below low normal Albumin [facility] ( [facility]) albumin/globulin ratio Albumin/globu mar Ratio [facility] ([facility]) ID Date Data Source [id number] 06/16/2020 01:47:00 PM EST [place] ([facility]) Name Value Range Interpretation Code Description Data Marla rce(s) Supporting Document(s) prothrombin time 15.5 seconds 12.5-14.3 Above high normal Prothrombi n Time [facility] ([facility]) INR Inr [facility] ([facility]) ID Date Data Source [id number] 06/16/2020 01:47:00 PM EST [place] ([facility]) Name Value Range Interpretation Code Description Data Marla rce(s) Supporting Document(s) white blood count 18.6 10 4.0-10.0 Above high normal White Blood Count [facility] ([facility]) red blood count 4.43 10 4.30-6.10 Red Blood Count [facility] ([facility]) hemoglobin 12.9 g/dL 13.5-17.5 Below low normal Hemoglobin [facility] ( [facility]) hematocrit 38.9 % 42.0-52.0 Below low normal Hematocrit [facility] ( [facility]) mean corpuscular volume 87.8 fL 80.0-96.0 Mean Corpusc ular Volume [facility] ([facility]) mean corpuscular hemoglobin 29.1 pg 27.0-33.0 Mean Cor puscular Hemoglobin [facility] ([facility]) mean corpuscular HGB conc 33.2 g/dL 32.0-36.5 Mean Corpu scular HGB Conc [facility] ([facility]) platelet count, automated 347 10 150-450 Platelet C ount, Automated [facility] ([facility]) red cell distribution width 13.3 % 11.5-14.5 Red Cell Distribution Width [facility] ([facility]) neutrophils % 93.0 % 36.0-66.0 Above high normal Neutrophils % [facility] ([facility]) lymph % 1.7 % 24.0-44.0 Below low normal Lymph % [facility] ( [facility]) mono % 4.0 % 2.0-8.0 [place] % [facility] ([facility]) eos % 0.0 % 0.0-3.0 Eos % [facility] ([facility]) baso % 0.2 % 0.0-1.0 Baso % [facility] ([facility]) immature granulocyte % 1.1 % 0-3.0 Immature Gran ulocyte % [facility] ([facility]) nucleated red blood cell % 0.0 % 0-0 Nucleated Red Blood Cell % [facility] ([facility]) neutrophils # 17.3 10 1.5-8.5 Above high normal Neutrophils # [facility] ([facility]) lymph # 0.3 10 1.5-5.0 Below low normal Lymph # [facility] ( [facility]) mono # 0.8 10 0.0-0.8 [place] # [facility] ([facility]) baso # 0.0 10 0.0-0.2 Baso # [facility] ([facility]) eos # 0.0 10 0.0-0.5 Eos # [facility] ([facility]) ID Date Data Source [id number] 06/16/2020 01:47:00 PM EST [facility] ([facility]) Name Value Range Interpretation Code Description Data Marla rce(s) Supporting Document(s) lipase 450 U/L 73-393 Above high normal Lipase [facility] ([facility]) ID Date Data Source [id number] 06/16/2020 01:47:00 PM EST [facility] ([facility]) Name Value Range Interpretation Code Description Data Marla rce(s) Supporting Document(s) glucose, fasting 112 mg/dL 70-100 Above high normal Glucose, Fas ting [facility] ([facility]) blood urea nitrogen 8 mg/dL 7-18 Blood Urea Nitro gen [facility] ([facility]) creatinine for GFR 1.32 mg/dL 0.70-1.30 Above high normal Creatinine for GFR [facility] ([facility]) glomerular filtration rate > 60.0 >60 Glomerula r Filtration Rate [facility] ([facility]) sodium level 136 mEq/L 136-145 Sodium Level [facility] ([facility]) potassium serum 4.0 mEq/L 3.5-5.1 Potassium Serum [facility] ([facility]) chloride level 102 mEq/L 98-107 Chloride Level [facility] ([facility]) anion gap 7 mEq/L 8-16 Below low normal Anion Gap [facility] ( [facility]) carbon dioxide level 27 mEq/L 21-32 Carbon Dioxide Level [place] ([facility]) calcium level 8.9 mg/dL 8.5-10.1 Calcium Level [place] ( [facility]) ID Date Data Source [id number] 06/16/2020 01:47:00 PM EST [place] ([facility]) Name Value Range Interpretation Code Description Data Marla rce(s) Supporting Document(s) ALT/SGPT 74 U/L 12-78 ALT/SGPT [place] ([facility]) AST/SGOT 51 U/L 7-37 Above high normal AST/SGOT [place] ([facility]) alkaline phosphatase 116 U/L 45-117 [facility] bilirubin,total 1.1 mg/dL 0.2-1.0 Above high normal Bilirubin,tot al [facility] bilirubin,direct 0.8 mg/dL 0.0-0.2 Above high normal Bilirubin,di rect [facility] ([facility]) total protein 6.7 gm/dL 6.4-8.2 Total Protein [facility] ( [facility]) albumin 3.1 gm/dL 3.2-5.2 Below low normal Albumin [place] ( [facility]) albumin/globulin ratio [facility]in[facility]u mar [facility] ID Date Data Source [id number] 06/16/2020 01:47:00 PM EST [facility] ([facility]) Name Value Range Interpretation Code Description Data Marla rce(s) Supporting Document(s) prothrombin time 15.5 seconds 12.5-14.3 Above high normal Prothrombi n Time [facility] ([facility]) INR Inr [facility] ([facility]) ID Date Data Source [id number] 06/16/2020 01:47:00 PM EST [facility] ([facility]) Name Value Range Interpretation Code Description Data Marla rce(s) Supporting Document(s) white blood count 18.6 10 4.0-10.0 Above high normal White Blood Count [facility] ([facility]) red blood count 4.43 10 4.30-6.10 [facility] hematocrit 38.9 % 42.0-52.0 Below low normal Hematocrit [facility] ( [facility]) hemoglobin 12.9 g/dL 13.5-17.5 Below low normal Hemoglobin [facility] ( [facility]) mean corpuscular volume 87.8 fL 80.0-96.0 Mean Corpusc ular Volume [facility] ([facility]) mean corpuscular HGB conc 33.2 g/dL 32.0-36.5 Mean Corpu scular HGB Conc [facility] ([facility]) mean corpuscular hemoglobin 29.1 pg 27.0-33.0 Mean Cor puscular Hemoglobin [facility] ([facility]) red cell distribution width 13.3 % 11.5-14.5 Red Cell Distribution Width [facility] ([facility]) platelet count, automated 347 10 150-450 Platelet C ount, Automated [facility] ([facility]) lymph % 1.7 % 24.0-44.0 Below low normal Lymph % [facility] ( [facility]) mono % 4.0 % 2.0-8.0 [place] % [facility] ([facility]) neutrophils % 93.0 % 36.0-66.0 Above high normal Neutrophils % [facility] ([facility]) baso % 0.2 % 0.0-1.0 Baso % [facility] ([facility]) eos % 0.0 % 0.0-3.0 Eos % [facility] ([facility]) nucleated red blood cell % 0.0 % 0-0 Nucleated Red Blood Cell % [facility] ([facility]) immature granulocyte % 1.1 % 0-3.0 Immature Gran ulocyte % [facility] ([facility]) lymph # 0.3 10 1.5-5.0 Below low normal Lymph # [facility] ( [facility]) neutrophils # 17.3 10 1.5-8.5 Above high normal Neutrophils # [facility] ([facility]) eos # 0.0 10 0.0-0.5 Eos # [facility] ([facility]) mono # 0.8 10 0.0-0.8 [place] # [facility] ([facility]) baso # 0.0 10 0.0-0.2 Baso # [facility] ([facility]) ID Date Data Source [id number] 06/16/2020 01:47:00 PM EST [facility] ([facility]) Name Value Range Interpretation Code Description Data Marla rce(s) Supporting Document(s) lipase 450 U/L 73-393 Above high normal Lipase [place] ([facility]) ID Date Data Source [id number] 06/16/2020 01:47:00 PM EST [facility] ([facility]) Name Value Range Interpretation Code Description Data Marla rce(s) Supporting Document(s) glucose, fasting 112 mg/dL 70-100 Above high normal Glucose, Fas ting [facility] ([facility]) blood urea nitrogen 8 mg/dL 7-18 Blood Urea Nitro gen [facility] ([facility]) creatinine for GFR 1.32 mg/dL 0.70-1.30 Above high normal Creatinine for GFR [facility] ([facility]) glomerular filtration rate > 60.0 >60 Glomerula r Filtration Rate [facility] ([facility]) potassium serum 4.0 mEq/L 3.5-5.1 Potassium Serum ATHE NA ([facility]) sodium level 136 mEq/L 136-145 Sodium Level [facility] ([facility]) carbon dioxide level 27 mEq/L 21-32 Carbon Dioxide Level [facility] ([facility]) chloride level 102 mEq/L 98-107 Chloride Level [facility] ([facility]) anion gap 7 mEq/L 8-16 Below low normal Anion Gap [facility] ( [facility]) calcium level 8.9 mg/dL 8.5-10.1 Calcium Level [facility] ( [facility]) ID Date Data Source [id number] 06/16/2020 01:47:00 PM EST [facility] ([facility]) Name Value Range Interpretation Code Description Data Marla rce(s) Supporting Document(s) AST/SGOT 51 U/L 7-37 Above high normal AST/SGOT [facility] ([facility]) alkaline phosphatase 116 U/L 45-117 Alkaline Phosph atase [facility] ([facility]) ALT/SGPT 74 U/L 12-78 ALT/SGPT [facility] ([facility]) bilirubin,total 1.1 mg/dL 0.2-1.0 Above high normal Bilirubin,tot al [facility] ([facility]) bilirubin,direct 0.8 mg/dL 0.0-0.2 Above high normal Bilirubin,di rect [facility] ([facility]) total protein 6.7 gm/dL 6.4-8.2 Total Protein [facility] ( [facility]) albumin/globulin ratio Albumin/globu mar Ratio [facility] ([facility]) albumin 3.1 gm/dL 3.2-5.2 Below low normal Albumin [facility] ( [facility]) ID Date Data Source [id number] 06/16/2020 01:47:00 PM EST [place] ([facility]) Name Value Range Interpretation Code Description Data Marla rce(s) Supporting Document(s) prothrombin time 15.5 seconds 12.5-14.3 Above high normal Prothrombi n Time [facility] ([facility]) INR Inr [facility] ([facility]) ID Date Data Source [id number] 06/16/2020 01:47:00 PM EST [facility] ([facility]) Name Value Range Interpretation Code Description Data Marla rce(s) Supporting Document(s) red blood count 4.43 10 4.30-6.10 Red Blood Count [facility] NA ([facility]) white blood count 18.6 10 4.0-10.0 Above high normal White Blood Count [facility] ([facility]) hematocrit 38.9 % 42.0-52.0 Below low normal Hematocrit [facility] ( [facility]) hemoglobin 12.9 g/dL 13.5-17.5 Below low normal Hemoglobin [facility] ( [facility]) mean corpuscular volume 87.8 fL 80.0-96.0 Mean Corpusc ular Volume [facility] ([facility]) mean corpuscular hemoglobin 29.1 pg 27.0-33.0 Mean Cor puscular Hemoglobin [facility] ([facility]) red cell distribution width 13.3 % 11.5-14.5 Red Cell Distribution Width [facility] ([facility]) mean corpuscular HGB conc 33.2 g/dL 32.0-36.5 Mean Corpu scular HGB Conc [facility] ([facility]) platelet count, automated 347 10 150-450 Platelet C ount, Automated [facility] ([facility]) lymph % 1.7 % 24.0-44.0 Below low normal Lymph % [facility] ( [facility]) neutrophils % 93.0 % 36.0-66.0 Above high normal Neutrophils % A [facility] ([facility]) eos % 0.0 % 0.0-3.0 Eos % [facility] ([facility]) mono % 4.0 % 2.0-8.0 Frontier % [facility] ([facility]) immature granulocyte % 1.1 % 0-3.0 Immature Gran ulocyte % [facility] ([facility]) baso % 0.2 % 0.0-1.0 Baso % [facility] ([facility]) nucleated red blood cell % 0.0 % 0-0 Nucleated Red Blood Cell % [facility] ([facility]) neutrophils # 17.3 10 1.5-8.5 Above high normal Neutrophils # A [facility] ([facility]) lymph # 0.3 10 1.5-5.0 Below low normal Lymph # [facility] ( [facility]) mono # 0.8 10 0.0-0.8 Frontier # [facility] ([facility]) eos # 0.0 10 0.0-0.5 Eos # [facility] ([facility]) baso # 0.0 10 0.0-0.2 Baso # [facility] ([facility]) ID Date Data Source [id number] 06/16/2020 01:47:00 PM EST [facility] ([facility]) Name Value Range Interpretation Code Description Data Marla rce(s) Supporting Document(s) lipase 450 U/L 73-393 Above high normal Lipase [facility] ([facility]) ID Date Data Source [id number] 06/16/2020 01:47:00 PM EST [facility] ([facility]) Name Value Range Interpretation Code Description Data Marla rce(s) Supporting Document(s) glucose, fasting 112 mg/dL 70-100 Above high normal Glucose, Fas ting [facility] ([facility]) blood urea nitrogen 8 mg/dL 7-18 Blood Urea Nitro gen [facility] ([facility]) creatinine for GFR 1.32 mg/dL 0.70-1.30 Above high normal Creatinine for GFR [facility] ([facility]) glomerular filtration rate > 60.0 >60 Glomerula r Filtration Rate [facility] ([facility]) sodium level 136 mEq/L 136-145 Sodium Level [facility] ([facility]) potassium serum 4.0 mEq/L 3.5-5.1 Potassium Serum [facility] NA ([facility]) carbon dioxide level 27 mEq/L 21-32 Carbon Dioxide Level [facility] ([facility]) chloride level 102 mEq/L 98-107 Chloride Level [facility] ([facility]) anion gap 7 mEq/L 8-16 Below low normal Anion Gap [facility] ( [facility]) calcium level 8.9 mg/dL 8.5-10.1 Calcium Level [facility] ( [facility]) ID Date Data Source [id number] 06/16/2020 01:47:00 PM EST [facility] ([facility]) Name Value Range Interpretation Code Description Data Marla rce(s) Supporting Document(s) ALT/SGPT 74 U/L 12-78 ALT/SGPT [facility] ([facility]) AST/SGOT 51 U/L 7-37 Above high normal AST/SGOT [facility] ([facility]) alkaline phosphatase 116 U/L 45-117 Alkaline Phosph atase [facility] ([facility]) bilirubin,total 1.1 mg/dL 0.2-1.0 Above high normal Bilirubin,tot al [facility] ([facility]) total protein 6.7 gm/dL 6.4-8.2 Total Protein [facility] ( [facility]) bilirubin,direct 0.8 mg/dL 0.0-0.2 Above high normal Bilirubin,di rect [facility] ([facility]) albumin/globulin ratio Albumin/globu mar Ratio [facility] ([facility]) albumin 3.1 gm/dL 3.2-5.2 Below low normal Albumin [facility] ( [facility]) ID Date Data Source [id number] 06/16/2020 01:47:00 PM EST [facility] ([facility]) Name Value Range Interpretation Code Description Data Marla rce(s) Supporting Document(s) INR Inr [facility] ([facility]) prothrombin time 15.5 seconds 12.5-14.3 Above high normal Prothrombi n Time [facility] ([facility]) ID Date Data Source [id number] 06/16/2020 01:47:00 PM EST [facility] ([facility]) Name Value Range Interpretation Code Description Data Marla rce(s) Supporting Document(s) white blood count 18.6 10 4.0-10.0 Above high normal White Blood Count [facility] ([facility]) red blood count 4.43 10 4.30-6.10 Red Blood Count [facility] NA ([facility]) hematocrit 38.9 % 42.0-52.0 Below low normal Hematocrit [facility] ( [facility]) hemoglobin 12.9 g/dL 13.5-17.5 Below low normal Hemoglobin [facility] ( [facility]) mean corpuscular volume 87.8 fL 80.0-96.0 Mean Corpusc ular Volume [facility] ([facility]) mean corpuscular hemoglobin 29.1 pg 27.0-33.0 Mean Cor puscular Hemoglobin [facility] ([facility]) red cell distribution width 13.3 % 11.5-14.5 Red Cell Distribution Width [facility] ([facility]) mean corpuscular HGB conc 33.2 g/dL 32.0-36.5 Mean Corpu scular HGB Conc [facility] ([facility]) platelet count, automated 347 10 150-450 Platelet C ount, Automated [facility] ([facility]) lymph % 1.7 % 24.0-44.0 Below low normal Lymph % [facility] ( [facility]) neutrophils % 93.0 % 36.0-66.0 Above high normal Neutrophils % A [facility] ([facility]) mono % 4.0 % 2.0-8.0 [place] % [place] ([facility]) eos % 0.0 % 0.0-3.0 Eos % [facility] ([facility]) immature granulocyte % 1.1 % 0-3.0 Immature Gran ulocyte % [facility] ([facility]) baso % 0.2 % 0.0-1.0 Baso % [place] ([facility]) nucleated red blood cell % 0.0 % 0-0 Nucleated Red Blood Cell % [facility] ([facility]) neutrophils # 17.3 10 1.5-8.5 Above high normal Neutrophils # A [facility] ([facility]) mono # 0.8 10 0.0-0.8 Frontier # [facility] ([facility]) lymph # 0.3 10 1.5-5.0 Below low normal Lymph # [facility] ( [facility]) baso # 0.0 10 0.0-0.2 Baso # [facility] ([facility]) eos # 0.0 10 0.0-0.5 Eos # [facility] ([facility]) ID Date Data Source [id number] 06/04/2020 08:02:00 AM EST [facility] ([facility]) Name Value Range Interpretation Code Description Data Marla rce(s) Supporting Document(s) lipase 281 U/L 73-393 Lipase [facility] ([facility]) ID Date Data Source [id number] 06/04/2020 08:02:00 AM EST [facility] ([facility]) Name Value Range Interpretation Code Description Data Marla rce(s) Supporting Document(s) glucose, fasting 82 mg/dL 70-100 Glucose, Fasting AT [facility]) creatinine for GFR 0.81 mg/dL 0.70-1.30 Creatinine for GF R [facility] ([facility]) blood urea nitrogen 15 mg/dL 7-18 Blood Urea Nitro gen [facility] ([facility]) glomerular filtration rate > 60.0 >60 Glomerula r Filtration Rate [facility] ([facility]) sodium level 140 mEq/L 136-145 Sodium Level [facility] ([facility]) chloride level 103 mEq/L 98-107 Chloride Level [facility] ([facility]) carbon dioxide level 29 mEq/L 21-32 Carbon Dioxide Level [facility] ([facility]) potassium serum 4.0 mEq/L 3.5-5.1 Potassium Serum [facility] NA ([facility]) calcium level 8.6 mg/dL 8.5-10.1 Calcium Level [facility] ( [facility]) anion gap 8 mEq/L 8-16 Anion Gap [facility] ([facility]) AST/SGOT 27 U/L 7-37 AST/SGOT [facility] ([facility]) ALT/SGPT 77 U/L 12-78 ALT/SGPT [facility] ([facility]) alkaline phosphatase 139 U/L 45-117 Above high normal Alkaline Phosphatase [facility] ([facility]) total protein 6.4 gm/dL 6.4-8.2 Total Protein [facility] ( [facility]) bilirubin,total 2.7 mg/dL 0.2-1.0 Above high normal Bilirubin,tot al [facility] ([facility]) albumin 2.9 gm/dL 3.2-5.2 Below low normal Albumin [facility] ( [facility]) albumin/globulin ratio Albumin/globu mar Ratio [facility] ([facility]) ID Date Data Source [id number] 06/04/2020 08:02:00 AM EST [facility] ([facility]) Name Value Range Interpretation Code Description Data Marla rce(s) Supporting Document(s) white blood count 12.9 10 4.0-10.0 Above high normal White Blood Count [facility] ([facility]) red blood count 4.57 10 4.30-6.10 Red Blood Count [facility] ([facility]) hematocrit 39.9 % 42.0-52.0 Below low normal Hematocrit [facility] ( [facility]) hemoglobin 13.0 g/dL 13.5-17.5 Below low normal Hemoglobin [facility] ( [facility]) mean corpuscular hemoglobin 28.4 pg 27.0-33.0 Mean Cor puscular Hemoglobin [facility] ([facility]) mean corpuscular volume 87.3 fL 80.0-96.0 Mean Corpusc ular Volume [facility] ([facility]) red cell distribution width 13.9 % 11.5-14.5 Red Cell Distribution Width [facility] ([facility]) platelet count, automated 262 10 150-450 Platelet C ount, Automated [facility] ([facility]) mean corpuscular HGB conc 32.6 g/dL 32.0-36.5 Mean Corpu scular HGB Conc [facility] ([facility]) lymph % 10.7 % 24.0-44.0 Below low normal Lymph % [facility] ( [facility]) neutrophils % 73.6 % 36.0-66.0 Above high normal Neutrophils % A [facility] ([facility]) mono % 12.9 % 0.0-5.0 Above high normal Frontier % [facility] ([facility]) eos % 1.8 % 0.0-3.0 Eos % [facility] ([facility]) baso % 0.2 % 0.0-1.0 Baso % [facility] ([facility]) immature granulocyte % 0.8 % 0-3.0 Immature Gran ulocyte % [facility] ([facility]) neutrophils # 9.5 10 1.5-8.5 Above high normal Neutrophils # A [facility] ([facility]) nucleated red blood cell % 0.0 % 0-0 Nucleated Red Blood Cell % [facility] ([facility]) lymph # 1.4 10 1.5-5.0 Below low normal Lymph # [facility] ( [facility]) eos # 0.2 10 0.0-0.5 Eos # [facility] ([facility]) mono # 1.7 10 0.0-0.8 Above high normal [place] # [facility] ([facility]) baso # 0.0 10 0.0-0.2 Baso # [facility] ([facility]) ID Date Data Source [id number] 06/04/2020 08:02:00 AM EST [facility] ([facility]) Name Value Range Interpretation Code Description Data Marla rce(s) Supporting Document(s) lipase 281 U/L 73-393 Lipase [facility] ([facility]) ID Date Data Source [id number] 06/04/2020 08:02:00 AM EST [facility] ([facility]) Name Value Range Interpretation Code Description Data Marla rce(s) Supporting Document(s) glucose, fasting 82 mg/dL 70-100 Glucose, Fasting AT [facility] ([facility]) blood urea nitrogen 15 mg/dL 7-18 Blood Urea Nitro gen [facility] ([facility]) glomerular filtration rate > 60.0 >60 Glomerula r Filtration Rate [facility] ([facility]) creatinine for GFR 0.81 mg/dL 0.70-1.30 Creatinine for GF R [facility] ([facility]) sodium level 140 mEq/L 136-145 Sodium Level [facility] ([facility]) chloride level 103 mEq/L 98-107 Chloride Level [facility] ([facility]) potassium serum 4.0 mEq/L 3.5-5.1 Potassium Serum [facility] NA ([facility]) carbon dioxide level 29 mEq/L 21-32 Carbon Dioxide Level [facility] ([facility]) calcium level 8.6 mg/dL 8.5-10.1 Calcium Level [facility] ( [facility]) anion gap 8 mEq/L 8-16 Anion Gap [facility] ([facility]) AST/SGOT 27 U/L 7-37 AST/SGOT [facility] ([facility]) ALT/SGPT 77 U/L 12-78 ALT/SGPT [facility] ([facility]) alkaline phosphatase 139 U/L 45-117 Above high normal Alkaline Phosphatase [facility] ([facility]) bilirubin,total 2.7 mg/dL 0.2-1.0 Above high normal Bilirubin,tot al [facility] ([facility]) total protein 6.4 gm/dL 6.4-8.2 Total Protein [facility] ( [facility]) albumin/globulin ratio Albumin/globu mar Ratio [facility] ([facility]) albumin 2.9 gm/dL 3.2-5.2 Below low normal Albumin [facility] ( [facility]) ID Date Data Source [id number] 06/04/2020 08:02:00 AM EST [facility] ([facility]) Name Value Range Interpretation Code Description Data Marla rce(s) Supporting Document(s) white blood count 12.9 10 4.0-10.0 Above high normal White Blood Count [facility] ([facility]) red blood count 4.57 10 4.30-6.10 Red Blood Count [facility] NA ([facility]) hemoglobin 13.0 g/dL 13.5-17.5 Below low normal Hemoglobin [facility] ( [facility]) hematocrit 39.9 % 42.0-52.0 Below low normal Hematocrit [facility] ( [facility]) mean corpuscular volume 87.3 fL 80.0-96.0 Mean Corpusc ular Volume [facility] ([facility]) mean corpuscular hemoglobin 28.4 pg 27.0-33.0 Mean Cor puscular Hemoglobin [facility] ([facility]) mean corpuscular HGB conc 32.6 g/dL 32.0-36.5 Mean Corpu scular HGB Conc [facility] ([facility]) red cell distribution width 13.9 % 11.5-14.5 Red Cell Distribution Width [facility] ([facility]) platelet count, automated 262 10 150-450 Platelet C ount, Automated [facility] ([facility]) neutrophils % 73.6 % 36.0-66.0 Above high normal Neutrophils % A [facility] ([facility]) lymph % 10.7 % 24.0-44.0 Below low normal Lymph % [facility] ( [facility]) eos % 1.8 % 0.0-3.0 Eos % [facility] ([facility]) mono % 12.9 % 0.0-5.0 Above high normal [place] % [facility] ([facility]) baso % 0.2 % 0.0-1.0 Baso % [facility] ([facility]) immature granulocyte % 0.8 % 0-3.0 Immature Gran ulocyte % [facility] ([facility]) nucleated red blood cell % 0.0 % 0-0 Nucleated Red Blood Cell % [facility] ([facility]) neutrophils # 9.5 10 1.5-8.5 Above high normal Neutrophils # A [facility] ([facility]) lymph # 1.4 10 1.5-5.0 Below low normal Lymph # [facility] ( [facility]) eos # 0.2 10 0.0-0.5 Eos # [facility] ([facility]) mono # 1.7 10 0.0-0.8 Above high normal [place] # [facility] ([facility]) baso # 0.0 10 0.0-0.2 Baso # [facility] ([facility]) ID Date Data Source [id number] 06/04/2020 08:02:00 AM EST [facility] ([facility]) Name Value Range Interpretation Code Description Data Marla rce(s) Supporting Document(s) lipase 281 U/L 73-393 Lipase [facility] ([facility]) ID Date Data Source [id number] 06/04/2020 08:02:00 AM EST [facility] ([facility]) Name Value Range Interpretation Code Description Data Marla rce(s) Supporting Document(s) glucose, fasting 82 mg/dL 70-100 Glucose, Fasting AT [facility] ([facility]) creatinine for GFR 0.81 mg/dL 0.70-1.30 Creatinine for GF R [facility] ([facility]) blood urea nitrogen 15 mg/dL 7-18 Blood Urea Nitro gen [facility] ([facility]) glomerular filtration rate > 60.0 >60 Glomerula r Filtration Rate [facility] ([facility]) sodium level 140 mEq/L 136-145 Sodium Level [facility] ([facility]) potassium serum 4.0 mEq/L 3.5-5.1 Potassium Serum [facility] NA ([facility]) chloride level 103 mEq/L 98-107 Chloride Level [facility] ([facility]) anion gap 8 mEq/L 8-16 Anion Gap [facility] ([facility]) carbon dioxide level 29 mEq/L 21-32 Carbon Dioxide Level [facility] ([facility]) calcium level 8.6 mg/dL 8.5-10.1 Calcium Level [facility] ( [facility]) ALT/SGPT 77 U/L 12-78 ALT/SGPT [facility] ([facility]) AST/SGOT 27 U/L 7-37 AST/SGOT [facility] ([facility]) bilirubin,total 2.7 mg/dL 0.2-1.0 Above high normal Bilirubin,tot al [facility] ([facility]) alkaline phosphatase 139 U/L 45-117 Above high normal Alkaline Phosphatase [facility] ([facility]) total protein 6.4 gm/dL 6.4-8.2 Total Protein [facility] ( [facility]) albumin 2.9 gm/dL 3.2-5.2 Below low normal Albumin [facility] ( [facility]) albumin/globulin ratio Albumin/globu mar Ratio [facility] ([facility]) ID Date Data Source [id number] 06/04/2020 08:02:00 AM EST [facility] ([facility]) Name Value Range Interpretation Code Description Data Marla rce(s) Supporting Document(s) white blood count 12.9 10 4.0-10.0 Above high normal White Blood Count [facility] ([facility]) red blood count 4.57 10 4.30-6.10 Red Blood Count [facility] ([facility]) hematocrit 39.9 % 42.0-52.0 Below low normal Hematocrit [facility] ( [facility]) hemoglobin 13.0 g/dL 13.5-17.5 Below low normal Hemoglobin [facility] ( [facility]) mean corpuscular volume 87.3 fL 80.0-96.0 Mean Corpusc ular Volume [facility] ([facility]) mean corpuscular HGB conc 32.6 g/dL 32.0-36.5 Mean Corpu scular HGB Conc [facility] ([facility]) mean corpuscular hemoglobin 28.4 pg 27.0-33.0 Mean Cor puscular Hemoglobin [facility] ([facility]) red cell distribution width 13.9 % 11.5-14.5 Red Cell Distribution Width [facility] ([facility]) platelet count, automated 262 10 150-450 Platelet C ount, Automated [facility] ([facility]) lymph % 10.7 % 24.0-44.0 Below low normal Lymph % [facility] ( [facility]) neutrophils % 73.6 % 36.0-66.0 Above high normal Neutrophils % [place] [facility] ([facility]) mono % 12.9 % 0.0-5.0 Above high normal [place] % [facility] ([facility]) eos % 1.8 % 0.0-3.0 Eos % [facility] ([facility]) baso % 0.2 % 0.0-1.0 Baso % [facility] ([facility]) immature granulocyte % 0.8 % 0-3.0 Immature Gran ulocyte % [facility] ([facility]) nucleated red blood cell % 0.0 % 0-0 Nucleated Red Blood Cell % [facility] ([facility]) mono # 1.7 10 0.0-0.8 Above high normal [place] # [facility] ([facility]) lymph # 1.4 10 1.5-5.0 Below low normal Lymph # [facility] ( [facility]) neutrophils # 9.5 10 1.5-8.5 Above high normal Neutrophils # A [facility] ([facility]) eos # 0.2 10 0.0-0.5 Eos # [facility] ([facility]) baso # 0.0 10 0.0-0.2 Baso # [facility] ([facility]) ID Date Data Source [id number] 06/04/2020 08:02:00 AM EST [facility] ([facility]) Name Value Range Interpretation Code Description Data Marla rce(s) Supporting Document(s) lipase 281 U/L 73-393 Lipase [facility] ([facility]) ID Date Data Source [id number] 06/04/2020 08:02:00 AM EST [facility] ([facility]) Name Value Range Interpretation Code Description Data Marla rce(s) Supporting Document(s) creatinine for GFR 0.81 mg/dL 0.70-1.30 Creatinine for GF R [facility] ([facility]) glucose, fasting 82 mg/dL 70-100 Glucose, Fasting AT [facility] ([facility]) blood urea nitrogen 15 mg/dL 7-18 Blood Urea Nitro gen [facility] ([facility]) potassium serum 4.0 mEq/L 3.5-5.1 Potassium Serum [facility] NA ([facility]) sodium level 140 mEq/L 136-145 Sodium Level [facility] ([facility]) glomerular filtration rate > 60.0 >60 Glomerula r Filtration Rate [facility] ([facility]) anion gap 8 mEq/L 8-16 Anion Gap [facility] ([facility]) chloride level 103 mEq/L 98-107 Chloride Level [facility] ([facility]) carbon dioxide level 29 mEq/L 21-32 Carbon Dioxide Level [facility] ([facility]) calcium level 8.6 mg/dL 8.5-10.1 Calcium Level [facility] ( [facility]) AST/SGOT 27 U/L 7-37 AST/SGOT [facility] ([facility]) alkaline phosphatase 139 U/L 45-117 Above high normal Alkaline Phosphatase [facility] ([facility]) bilirubin,total 2.7 mg/dL 0.2-1.0 Above high normal Bilirubin,tot al [facility] ([facility]) ALT/SGPT 77 U/L 12-78 ALT/SGPT [facility] ([facility]) total protein 6.4 gm/dL 6.4-8.2 Total Protein [facility] ( [facility]) albumin 2.9 gm/dL 3.2-5.2 Below low normal Albumin [facility] ( [facility]) albumin/globulin ratio Albumin/globu mar Ratio [facility] ([facility]) ID Date Data Source [id number] 06/04/2020 08:02:00 AM EST [facility] ([facility]) Name Value Range Interpretation Code Description Data Marla rce(s) Supporting Document(s) white blood count 12.9 10 4.0-10.0 Above high normal White Blood Count [facility] [facility] red blood count 4.57 10 4.30-6.10 Red Blood Count ATHE ([facility]) hemoglobin 13.0 g/dL 13.5-17.5 Below low normal Hemoglobin GARRET ( [facility]) hematocrit 39.9 % 42.0-52.0 Below low normal Hematocrit G[facility] ( [facility]) mean corpuscular volume 87.3 fL 80.0-96.0 Mean Corpusc ular Volume GARRET ([facility]) mean corpuscular hemoglobin 28.4 pg 27.0-33.0 Mean Cor puscular Hemoglobin G[facility] ([facility]) red cell distribution width 13.9 % 11.5-14.5 Red Cell Distribution Width G[facility] ([facility]) mean corpuscular HGB conc 32.6 g/dL 32.0-36.5 Mean Corpu scular HGB Conc G[facility] ([facility]) lymph % 10.7 % 24.0-44.0 Below low normal Lymph % GARRET ( [facility]) neutrophils % 73.6 % 36.0-66.0 Above high normal Neutrophils % A [facility] ([facility]) platelet count, automated 262 10 150-450 Platelet C ount, Automated G[facility] ([facility]) eos % 1.8 % 0.0-3.0 Eos % GARRET ([facility]) mono % 12.9 % 0.0-5.0 Above high normal Frontier % GARRET ([facility]) immature granulocyte % 0.8 % 0-3.0 Immature Gran ulocyte % G[facility]RET ([facility]) nucleated red blood cell % 0.0 % 0-0 Nucleated Red Blood Cell % G[facility] ([facility]) baso % 0.2 % 0.0-1.0 Baso % GARRET ([facility]) lymph # 1.4 10 1.5-5.0 Below low normal Lymph # GARRET ( [facility]) mono # 1.7 10 0.0-0.8 Above high normal Frontier # G[facility]RET ([facility]) neutrophils # 9.5 10 1.5-8.5 Above high normal Neutrophils # A [facility] ([facility]) eos # 0.2 10 0.0-0.5 Eos # G[facility]RET ([facility]) baso # 0.0 10 0.0-0.2 Baso # G[facility]RET ([facility]) ID Date Data Source [id number] 06/04/2020 08:02:00 AM EST [facility] ([facility]) Name Value Range Interpretation Code Description Data Marla rce(s) Supporting Document(s) lipase 281 U/L 73-393 Lipase G[facility] ([facility]) ID Date Data Source [id number] 06/04/2020 08:02:00 AM EST [facility] ([facility]) Name Value Range Interpretation Code Description Data Marla rce(s) Supporting Document(s) glucose, fasting 82 mg/dL 70-100 Glucose, Fasting AT [facility] ([facility]) blood urea nitrogen 15 mg/dL 7-18 Blood Urea Nitro gen [place] ([facility]) creatinine for GFR 0.81 mg/dL 0.70-1.30 Creatinine for GF R [place] ([facility]) potassium serum 4.0 mEq/L 3.5-5.1 Potassium Serum ATHE NA ([facility]) glomerular filtration rate > 60.0 >60 Glomerula r Filtration Rate G[facility] ([facility]) sodium level 140 mEq/L 136-145 Sodium Level [facility] ([facility]) chloride level 103 mEq/L 98-107 Chloride Level [facility] ([facility]) carbon dioxide level 29 mEq/L 21-32 Carbon Dioxide Level [place] ([facility]) anion gap 8 mEq/L 8-16 Anion Gap G[facility] ([facility]) calcium level 8.6 mg/dL 8.5-10.1 Calcium Level [facility] ( [facility]) AST/SGOT 27 U/L 7-37 AST/SGOT [facility] ([facility]) alkaline phosphatase 139 U/L 45-117 Above high normal Alkaline Phosphatase [facility] ([facility]) ALT/SGPT 77 U/L 12-78 ALT/SGPT [facility] ([facility]) total protein 6.4 gm/dL 6.4-8.2 Total Protein G[facility] ( [facility]) bilirubin,total 2.7 mg/dL 0.2-1.0 Above high normal Bilirubin,tot al [facility] ([facility]) albumin/globulin ratio Albumin/globu mar Ratio G[facility] ([facility]) albumin 2.9 gm/dL 3.2-5.2 Below low normal Albumin [facility] ( [facility]) ID Date Data Source [id number] 06/04/2020 08:02:00 AM EST [facility] ([facility]) Name Value Range Interpretation Code Description Data Marla rce(s) Supporting Document(s) white blood count 12.9 10 4.0-10.0 Above high normal White Blood Count [facility] ([facility]) hemoglobin 13.0 g/dL 13.5-17.5 Below low normal Hemoglobin G[facility] ( [facility]) red blood count 4.57 10 4.30-6.10 Red Blood Count ATHE NA ([facility]) mean corpuscular volume 87.3 fL 80.0-96.0 Mean Corpusc ular Volume GARRET ([facility]) hematocrit 39.9 % 42.0-52.0 Below low normal Hematocrit [facility] ( [facility]) mean corpuscular hemoglobin 28.4 pg 27.0-33.0 Mean Cor puscular Hemoglobin AGRRET ([facility]) mean corpuscular HGB conc 32.6 g/dL 32.0-36.5 Mean Corpu scular HGB Conc [facility] ([facility]) platelet count, automated 262 10 150-450 Platelet C ount, Automated [facility] ([facility]) neutrophils % 73.6 % 36.0-66.0 Above high normal Neutrophils % A [facility] ([facility]) red cell distribution width 13.9 % 11.5-14.5 Red Cell Distribution Width [facility] ([facility]) mono % 12.9 % 0.0-5.0 Above high normal Frontier % [facility] ([facility]) lymph % 10.7 % 24.0-44.0 Below low normal Lymph % [facility] ( [facility]) eos % 1.8 % 0.0-3.0 Eos % [facility] ([facility]) baso % 0.2 % 0.0-1.0 Baso % [facility] ([facility]) immature granulocyte % 0.8 % 0-3.0 Immature Gran ulocyte % [facility] ([facility]) nucleated red blood cell % 0.0 % 0-0 Nucleated Red Blood Cell % [facility] ([facility]) lymph # 1.4 10 1.5-5.0 Below low normal Lymph # [place] ( [facility]) neutrophils # 9.5 10 1.5-8.5 Above high normal Neutrophils # A [facility] ([facility]) eos # 0.2 10 0.0-0.5 Eos # [facility] ([facility]) mono # 1.7 10 0.0-0.8 Above high normal Frontier # [facility] ([facility]) baso # 0.0 10 0.0-0.2 Baso # [facility] ([facility]) ID Date Data Source [id number] 06/03/2020 03:26:00 PM EST [place] ([facility]) Name Value Range Interpretation Code Description Data Marla rce(s) Supporting Document(s) ID Date Data Source [id number] 06/03/2020 03:26:00 PM EST [place] ([facility]) Name Value Range Interpretation Code Description Data Marla rce(s) Supporting Document(s) sars covid-19 amplification positive negative Abno rmal (applies to non-numeric results) Sars Covid-19 Amplification [place] ([facility]) ID Date Data Source [id number] 06/03/2020 03:26:00 PM EST [facility] ([facility]) Name Value Range Interpretation Code Description Data Marla rce(s) Supporting Document(s) ID Date Data Source [id number] 06/03/2020 03:26[facility]00 [facility] Name Value Range Interpretation Code Description Data Marla rce(s) Supporting Document(s) sars covid-19 amplification positive negative Abno rmal (applies to non-numeric results) Sars Covid-19 Amplification [facility] ([facility]) ID Date Data Source [id number] 06/03/2020 03:26:00 PM EST [facility] ([facility]) Name Value Range Interpretation Code Description Data Marla rce(s) Supporting Document(s) ID Date Data Source [id number] 06/03/2020 03:26:00 PM EST [facility] ([facility]) Name Value Range Interpretation Code Description Data Marla rce(s) Supporting Document(s) sars covid-19 amplification positive negative Abno rmal (applies to non-numeric results) Sars Covid-19 Amplification [place] ([facility]) ID Date Data Source [id number] 06/03/2020 03:26:00 PM EST [facility]) Name Value Range Interpretation Code Description Data Marla rce(s) Supporting Document(s) ID Date Data Source [id number] 06/03/2020 03:26:00 PM EST [facility] ([facility]) Name Value Range Interpretation Code Description Data Marla rce(s) Supporting Document(s) sars covid-19 amplification positive negative Abno rmal (applies to non-numeric results) Sars Covid-19 Amplification [facility] ([facility]) ID Date Data Source [id number] 06/03/2020 03:26:00 PM [facility] Name Value Range Interpretation Code Description Data Marla rce(s) Supporting Document(s) ID Date Data Source [id number] 06/03/2020 03:26:00 PM [facility] Name Value Range Interpretation Code Description Data Marla rce(s) Supporting Document(s) sars covid-19 amplification positive negative Abno rmal (applies to non-numeric results) Sars Covid-19 Amplification [facility] ([facility]) ID Date Data Source [id number] 06/03/2020 03:26:00 PM EST [facility] Name Value Range Interpretation Code Description Data Marla rce(s) Supporting Document(s) SARS coronavirus 2 RNA [Presence] in Res piratory specimen by ANJU with probe detection POSITIVE [facility] This lab was ordered by [facility] a nd reported by [facility]. ID Date Data Source [id number] 06/03/2020 11:59:00 AM EST [facility] ([facility]) Name Value Range Interpretation Code Description Data Marla rce(s) Supporting Document(s) ID Date Data Source [id number] 06/03/2020 11:59:00 AM EST [facility] ([facility]) Name Value Range Interpretation Code Description Data Marla rce(s) Supporting Document(s) lactic acid sepsis protocol 0.9 mmol/L 0.4-2.0 Lactic A karma Sepsis Protocol [facility]) ID Date Data Source [id number] 06/03/2020 11:59:00 AM EST GARRET [facility]) Name Value Range Interpretation Code Description Data Marla rce(s) Supporting Document(s) ID Date Data Source [id number] 06/03/2020 11:59:00 AM [facility] Name Value Range Interpretation Code Description Data Marla rce(s) Supporting Document(s) lactic acid sepsis protocol 0.9 mmol/L 0.4-2.0 Lactic A karma Sepsis Protocol [facility]) ID Date Data Source [id number] 06/03/2020 11:59:00 AM [facility] Name Value Range Interpretation Code Description Data Marla rce(s) Supporting Document(s) ID Date Data Source [id number] 06/03/2020 11:59:00 AM EST G[facility]) Name Value Range Interpretation Code Description Data Marla rce(s) Supporting Document(s) lactic acid sepsis protocol 0.9 mmol/L 0.4-2.0 Lactic A karma Sepsis Protocol [facility]) ID Date Data Source [id number] 06/03/2020 11:59:00 AM EST [facility] Name Value Range Interpretation Code Description Data Marla rce(s) Supporting Document(s) ID Date Data Source [id number] 06/03/2020 11:59:00 AM EST [facility] Name Value Range Interpretation Code Description Data Marla rce(s) Supporting Document(s) lactic acid sepsis protocol 0.9 mmol/L 0.4-2.0 Lactic A karma Sepsis Protocol [facility]) ID Date Data Source [id number] 06/03/2020 11:59:00 AM EST [facility] Name Value Range Interpretation Code Description Data Marla rce(s) Supporting Document(s) ID Date Data Source [id number] 06/03/2020 11:59:00 AM EST [facility] Name Value Range Interpretation Code Description Data Marla rce(s) Supporting Document(s) lactic acid sepsis protocol 0.9 mmol/L 0.4-2.0 Lactic A karma Sepsis Protocol [facility] ID Date Data Source [id number] 06/03/2020 11:25:00 AM EST [facility] Name Value Range Interpretation Code Description Data Marla rce(s) Supporting Document(s) lipase 341 U/L 73-393 Lipase [facility] ([facility]) ID Date Data Source [id number] 06/03/2020 11:25:00 AM EST [facility] ([facility]) Name Value Range Interpretation Code Description Data Marla rce(s) Supporting Document(s) blood urea nitrogen 13 mg/dL 7-18 Blood Urea Nitro gen [facility] ([facility]) glucose, fasting 96 mg/dL 70-100 Glucose, Fasting AT [facility] ([facility]) sodium level 135 mEq/L 136-145 Below low normal Sodium Level ATHE ([facility]) glomerular filtration rate > 60.0 >60 Glomerula r Filtration Rate [place] ([facility]) creatinine for GFR 0.83 mg/dL 0.70-1.30 Creatinine for GF R [facility] ([facility]) carbon dioxide level 26 mEq/L 21-32 Carbon Dioxide Level [facility] ([facility]) potassium serum 3.9 mEq/L 3.5-5.1 Potassium Serum ATHE ([facility]) chloride level 101 mEq/L 98-107 Chloride Level [place] ([facility]) calcium level 8.5 mg/dL 8.5-10.1 Calcium Level G[facility] ( [facility]) anion gap 8 mEq/L 8-16 Anion Gap [facility] ([facility]) ID Date Data Source [id number] 06/03/2020 11:25:00 AM EST [facility] ([facility]) Name Value Range Interpretation Code Description Data Marla rce(s) Supporting Document(s) ALT/SGPT 113 U/L 12-78 Above high normal ALT/SGPT [facility] ([facility]) AST/SGOT 56 U/L 7-37 Above high normal AST/SGOT [facility] ([facility]) bilirubin,total 4.7 mg/dL 0.2-1.0 Bilirubin,total ATHE ([facility]) alkaline phosphatase 160 U/L 45-117 Above high normal Alkaline Phosphatase [facility] ([facility]) bilirubin,direct 3.0 mg/dL 0.0-0.2 Above high normal Bilirubin,di rect [facility] ([facility]) total protein 6.9 gm/dL 6.4-8.2 Total Protein [facility] ( [facility]) albumin 3.2 gm/dL 3.2-5.2 Albumin [facility] ([facility]) albumin/globulin ratio Albumin/globu mar Ratio [facility] ([facility]) ID Date Data Source [id number] 06/03/2020 11:25:00 AM EST [facility] ([facility]) Name Value Range Interpretation Code Description Data Marla rce(s) Supporting Document(s) white blood count 15.9 10 4.0-10.0 Above high normal White Blood Count [facility] ([facility]) red blood count 4.85 10 4.30-6.10 Red Blood Count AT[facility] ([facility]) hemoglobin 14.2 g/dL 13.5-17.5 Hemoglobin [facility] ([facility]) mean corpuscular hemoglobin 29.3 pg 27.0-33.0 Mean Cor puscular Hemoglobin [facility] ([facility]) mean corpuscular volume 85.4 fL 80.0-96.0 Mean Corpusc ular Volume [facility] ([facility]) hematocrit 41.4 % 42.0-52.0 Below low normal Hematocrit [place] ( [facility]) red cell distribution width 13.5 % 11.5-14.5 Red Cell Distribution Width [facility] ([facility]) mean corpuscular HGB conc 34.3 g/dL 32.0-36.5 Mean Corpu scular HGB Conc [facility] ([facility]) neutrophils % 76.9 % 36.0-66.0 Above high normal Neutrophils % A [facility] ([facility]) platelet count, automated 285 10 150-450 Platelet C ount, Automated [facility] ([facility]) lymph % 8.0 % 24.0-44.0 Below low normal Lymph % [facility] ( [facility]) mono % 13.0 % 0.0-5.0 Above high normal [place] % [facility] ([facility]) baso % 0.2 % 0.0-1.0 Baso % [facility] ([facility]) eos % 0.8 % 0.0-3.0 Eos % [facility] ([facility]) nucleated red blood cell % 0.0 % 0-0 Nucleated Red Blood Cell % [facility] ([facility]) immature granulocyte % 1.1 % 0-3.0 Immature Gran ulocyte % [facility] ([facility]) neutrophils # 12.2 10 1.5-8.5 Above high normal Neutrophils # A [facility] ([facility]) mono # 2.1 10 0.0-0.8 Above high normal Frontier # [facility] ([facility]) lymph # 1.3 10 1.5-5.0 Below low normal Lymph # [facility] ( [facility]) eos # 0.1 10 0.0-0.5 Eos # [facility] ([facility]) baso # 0.0 10 0.0-0.2 Baso # [facility] ([facility]) ID Date Data Source [id number] 06/03/2020 11:25:00 AM EST [facility] ([facility]) Name Value Range Interpretation Code Description Data Marla rce(s) Supporting Document(s) lipase 341 U/L 73-393 Lipase [facility] ([facility]) ID Date Data Source [id number] 06/03/2020 11:25:00 AM EST [facility] ([facility]) Name Value Range Interpretation Code Description Data Marla rce(s) Supporting Document(s) glucose, fasting 96 mg/dL 70-100 Glucose, Fasting AT [facility] ([facility]) blood urea nitrogen 13 mg/dL 7-18 Blood Urea Nitro gen [facility] ([facility]) glomerular filtration rate > 60.0 >60 Glomerula r Filtration Rate [facility] ([facility]) creatinine for GFR 0.83 mg/dL 0.70-1.30 Creatinine for GF R [place] ([facility]) potassium serum 3.9 mEq/L 3.5-5.1 Potassium Serum ATHE NA ([facility]) sodium level 135 mEq/L 136-145 Below low normal Sodium Level ATHE NA ([facility]) chloride level 101 mEq/L 98-107 Chloride Level [facility] ([facility]) carbon dioxide level 26 mEq/L 21-32 Carbon Dioxide Level [facility] ([facility]) anion gap 8 mEq/L 8-16 Anion Gap [facility] ([facility]) calcium level 8.5 mg/dL 8.5-10.1 Calcium Level [facility] ( [facility]) ID Date Data Source [id number] 06/03/2020 11:25:00 AM EST [facility] ([facility]) Name Value Range Interpretation Code Description Data Marla rce(s) Supporting Document(s) ALT/SGPT 113 U/L 12-78 Above high normal ALT/SGPT [facility] ([facility]) AST/SGOT 56 U/L 7-37 Above high normal AST/SGOT [facility] ([facility]) bilirubin,total 4.7 mg/dL 0.2-1.0 Bilirubin,total AT[facility] ([facility]) alkaline phosphatase 160 U/L 45-117 Above high normal Alkaline Phosphatase [facility] ([facility]) bilirubin,direct 3.0 mg/dL 0.0-0.2 Above high normal Bilirubin,di rect [facility] ([facility]) albumin 3.2 gm/dL 3.2-5.2 Albumin [facility] ([facility]) total protein 6.9 gm/dL 6.4-8.2 Total Protein [facility] ( [facility]) albumin/globulin ratio Albumin/globu mar Ratio [facility] ([facility]) ID Date Data Source [id number] 06/03/2020 11:25:00 AM EST [facility] ([facility]) Name Value Range Interpretation Code Description Data Marla rce(s) Supporting Document(s) white blood count 15.9 10 4.0-10.0 Above high normal White Blood Count [facility] ([facility]) red blood count 4.85 10 4.30-6.10 Red Blood Count ATHE NA ([facility]) hemoglobin 14.2 g/dL 13.5-17.5 Hemoglobin [facility] ([facility]) mean corpuscular volume 85.4 fL 80.0-96.0 Mean Corpusc ular Volume [facility] ([facility]) hematocrit 41.4 % 42.0-52.0 Below low normal Hematocrit [facility] ( [facility]) mean corpuscular HGB conc 34.3 g/dL 32.0-36.5 Mean Corpu scular HGB Conc [facility] ([facility]) mean corpuscular hemoglobin 29.3 pg 27.0-33.0 Mean Cor puscular Hemoglobin [facility] ([facility]) red cell distribution width 13.5 % 11.5-14.5 Red Cell Distribution Width [facility] ([facility]) platelet count, automated 285 10 150-450 Platelet C ount, Automated [facility] ([facility]) lymph % 8.0 % 24.0-44.0 Below low normal Lymph % [facility] ( [facility]) neutrophils % 76.9 % 36.0-66.0 Above high normal Neutrophils % [facility] mono % 13.0 % 0.0-5.0 Above high normal [place] % [facility] ([facility]) baso % 0.2 % 0.0-1.0 Baso % [facility] ([facility]) eos % 0.8 % 0.0-3.0 Eos % [facility] ([facility]) immature granulocyte % 1.1 % 0-3.0 Immature Gran ulocyte % [facility] ([facility]) nucleated red blood cell % 0.0 % 0-0 Nucleated Red Blood Cell % [facility] ([facility]) neutrophils # 12.2 10 1.5-8.5 Above high normal Neutrophils # A [facility] ([facility]) mono # 2.1 10 0.0-0.8 Above high normal Frontier # [facility] ([facility]) lymph # 1.3 10 1.5-5.0 Below low normal Lymph # [facility] ( [facility]) eos # 0.1 10 0.0-0.5 Eos # [facility] ([facility]) baso # 0.0 10 0.0-0.2 Baso # [facility] ([facility]) ID Date Data Source [id number] 06/03/2020 11:25:00 AM EST [facility] ([facility]) Name Value Range Interpretation Code Description Data Marla rce(s) Supporting Document(s) lipase 341 U/L 73-393 Lipase [facility] ([facility]) ID Date Data Source [id number] 06/03/2020 11:25:00 AM EST [facility] ([facility]) Name Value Range Interpretation Code Description Data Marla rce(s) Supporting Document(s) glucose, fasting 96 mg/dL 70-100 Glucose, Fasting AT [facility]) blood urea nitrogen 13 mg/dL 7-18 Blood Urea Nitro gen [place] ([facility]) creatinine for GFR 0.83 mg/dL 0.70-1.30 Creatinine for GF R [facility] ([facility]) sodium level 135 mEq/L 136-145 Below low normal Sodium Level [facility] ([facility]) glomerular filtration rate > 60.0 >60 Glomerula r Filtration Rate [facility] ([facility]) potassium serum 3.9 mEq/L 3.5-5.1 Potassium Serum AT[facility] NA ([facility]) chloride level 101 mEq/L 98-107 Chloride Level [facility] ([facility]) carbon dioxide level 26 mEq/L 21-32 Carbon Dioxide Level [facility] ([facility]) calcium level 8.5 mg/dL 8.5-10.1 Calcium Level [facility] ( [facility]) anion gap 8 mEq/L 8-16 Anion Gap [facility] ([facility]) ID Date Data Source [id number] 06/03/2020 11:25:00 AM EST [facility] ([facility]) Name Value Range Interpretation Code Description Data Marla rce(s) Supporting Document(s) AST/SGOT 56 U/L 7-37 Above high normal AST/SGOT [facility] ([facility]) alkaline phosphatase 160 U/L 45-117 Above high normal Alkaline Phosphatase [facility] ([facility]) ALT/SGPT 113 U/L 12-78 Above high normal ALT/SGPT [facility] ([facility]) bilirubin,total 4.7 mg/dL 0.2-1.0 Bilirubin,total ATHE NA ([facility]) bilirubin,direct 3.0 mg/dL 0.0-0.2 Above high normal Bilirubin,di rect [facility] ([facility]) total protein 6.9 gm/dL 6.4-8.2 Total Protein [place] ( [facility]) albumin/globulin ratio Albumin/globu mar Ratio [place] ([facility]) albumin 3.2 gm/dL 3.2-5.2 Albumin [facility] ([facility]) ID Date Data Source [id number] 06/03/2020 11:25:00 AM EST [facility] ([facility]) Name Value Range Interpretation Code Description Data Marla rce(s) Supporting Document(s) white blood count 15.9 10 4.0-10.0 Above high normal White Blood Count [facility] ([facility]) red blood count 4.85 10 4.30-6.10 Red Blood Count AT[facility] ([facility]) hemoglobin 14.2 g/dL 13.5-17.5 Hemoglobin [facility] ([facility]) hematocrit 41.4 % 42.0-52.0 Below low normal Hematocrit [facility] ( [facility]) mean corpuscular volume 85.4 fL 80.0-96.0 Mean Corpusc ular Volume [facility] ([facility]) mean corpuscular HGB conc 34.3 g/dL 32.0-36.5 Mean Corpu scular HGB Conc [facility] ([facility]) mean corpuscular hemoglobin 29.3 pg 27.0-33.0 Mean Cor puscular Hemoglobin [facility] ([facility]) platelet count, automated 285 10 150-450 Platelet C ount, Automated [facility] ([facility]) neutrophils % 76.9 % 36.0-66.0 Above high normal Neutrophils % A [facility] ([facility]) red cell distribution width 13.5 % 11.5-14.5 Red Cell Distribution Width [facility] ([facility]) eos % 0.8 % 0.0-3.0 Eos % [facility] ([facility]) lymph % 8.0 % 24.0-44.0 Below low normal Lymph % [facility] ( [facility]) mono % 13.0 % 0.0-5.0 Above high normal Frontier % [facility] ([facility]) immature granulocyte % 1.1 % 0-3.0 Immature Gran ulocyte % [facility] ([facility]) nucleated red blood cell % 0.0 % 0-0 Nucleated Red Blood Cell % [facility] ([facility]) baso % 0.2 % 0.0-1.0 Baso % [facility] ([facility]) mono # 2.1 10 0.0-0.8 Above high normal Frontier # [facility] ([facility]) lymph # 1.3 10 1.5-5.0 Below low normal Lymph # [facility] ( [facility]) neutrophils # 12.2 10 1.5-8.5 Above high normal Neutrophils # [facility]) eos # 0.1 10 0.0-0.5 Eos # [facility] ([facility]) baso # 0.0 10 0.0-0.2 Baso # [facility] ([facility]) ID Date Data Source [id number] 06/03/2020 11:25:00 AM EST [facility] ([facility]) Name Value Range Interpretation Code Description Data Marla rce(s) Supporting Document(s) lipase 341 U/L 73-393 Lipase [facility] ([facility]) ID Date Data Source [id number] 06/03/2020 11:25:00 AM EST [facility] ([facility]) Name Value Range Interpretation Code Description Data Marla rce(s) Supporting Document(s) glucose, fasting 96 mg/dL 70-100 Glucose, Fasting AT [facility] ([facility]) blood urea nitrogen 13 mg/dL 7-18 Blood Urea Nitro gen [facility] ([facility]) creatinine for GFR 0.83 mg/dL 0.70-1.30 Creatinine for GF R [facility] ([facility]) sodium level 135 mEq/L 136-145 Below low normal Sodium Level [facility] ([facility]) glomerular filtration rate > 60.0 >60 Glomerula r Filtration Rate [facility] ([facility]) potassium serum 3.9 mEq/L 3.5-5.1 Potassium Serum [facility] ([facility]) chloride level 101 mEq/L 98-107 Chloride Level [facility] ([facility]) carbon dioxide level 26 mEq/L 21-32 Carbon Dioxide Level [facility] ([facility]) anion gap 8 mEq/L 8-16 Anion Gap [facility] ([facility]) calcium level 8.5 mg/dL 8.5-10.1 Calcium Level [facility] ( [facility]) ID Date Data Source [id number] 06/03/2020 11:25:00 AM EST [place] ([facility]) Name Value Range Interpretation Code Description Data Marla rce(s) Supporting Document(s) alkaline phosphatase 160 U/L 45-117 Above high normal Alkaline Phosphatase [facility] ([facility]) ALT/SGPT 113 U/L 12-78 Above high normal ALT/SGPT [facility] ([facility]) AST/SGOT 56 U/L 7-37 Above high normal AST/SGOT [facility] ([facility]) total protein 6.9 gm/dL 6.4-8.2 Total Protein [facility] ( [facility]) bilirubin,direct 3.0 mg/dL 0.0-0.2 Above high normal Bilirubin,di rect [facility] ([facility]) bilirubin,total 4.7 mg/dL 0.2-1.0 Bilirubin,total [facility] ([facility]) albumin 3.2 gm/dL 3.2-5.2 Albumin [facility] ([facility]) albumin/globulin ratio Albumin/globu mar Ratio [facility] ([facility]) ID Date Data Source [id number] 06/03/2020 11:25:00 AM EST [facility] ([facility]) Name Value Range Interpretation Code Description Data Marla rce(s) Supporting Document(s) white blood count 15.9 10 4.0-10.0 Above high normal White Blood Count [facility] ([facility]) red blood count 4.85 10 4.30-6.10 Red Blood Count [facility] NA ([facility]) hemoglobin 14.2 g/dL 13.5-17.5 Hemoglobin [facility] ([facility]) mean corpuscular hemoglobin 29.3 pg 27.0-33.0 Mean Cor puscular Hemoglobin [facility] ([facility]) mean corpuscular volume 85.4 fL 80.0-96.0 Mean Corpusc ular Volume [facility] ([facility]) hematocrit 41.4 % 42.0-52.0 Below low normal Hematocrit [facility] ( [facility]) mean corpuscular HGB conc 34.3 g/dL 32.0-36.5 Mean Corpu scular HGB Conc [facility] ([facility]) platelet count, automated 285 10 150-450 Platelet C ount, Automated [facility] ([facility]) red cell distribution width 13.5 % 11.5-14.5 Red Cell Distribution Width [facility] ([facility]) neutrophils % 76.9 % 36.0-66.0 Above high normal Neutrophils % A [facility] ([facility]) lymph % 8.0 % 24.0-44.0 Below low normal Lymph % [facility] ( [facility]) mono % 13.0 % 0.0-5.0 Above high normal [place] % [facility] ([facility]) immature granulocyte % 1.1 % 0-3.0 Immature Gran ulocyte % [facility] ([facility]) eos % 0.8 % 0.0-3.0 Eos % [facility] ([facility]) baso % 0.2 % 0.0-1.0 Baso % [facility] ([facility]) nucleated red blood cell % 0.0 % 0-0 Nucleated Red Blood Cell % [facility] ([facility]) lymph # 1.3 10 1.5-5.0 Below low normal Lymph # [facility] ( [facility]) neutrophils # 12.2 10 1.5-8.5 Above high normal Neutrophils # A [facility] ([facility]) mono # 2.1 10 0.0-0.8 Above high normal [place] # [facility] ([facility]) eos # 0.1 10 0.0-0.5 Eos # [facility] ([facility]) baso # 0.0 10 0.0-0.2 Baso # [facility] ([facility]) ID Date Data Source [id number] 06/03/2020 11:25:00 AM EST [facility] ([facility]) Name Value Range Interpretation Code Description Data Marla rce(s) Supporting Document(s) lipase 341 U/L 73-393 Lipase [facility] ([facility]) ID Date Data Source [id number] 06/03/2020 11:25:00 AM EST [facility] ([facility]) Name Value Range Interpretation Code Description Data Marla rce(s) Supporting Document(s) glucose, fasting 96 mg/dL 70-100 Glucose, Fasting AT [facility]) blood urea nitrogen 13 mg/dL 7-18 Blood Urea Nitro gen [facility] ([facility]) creatinine for GFR 0.83 mg/dL 0.70-1.30 Creatinine for GF R [facility] ([facility]) sodium level 135 mEq/L 136-145 Below low normal Sodium Level [facility] NA ([facility]) potassium serum 3.9 mEq/L 3.5-5.1 Potassium Serum [facility] NA ([facility]) glomerular filtration rate > 60.0 >60 Glomerula r Filtration Rate [facility] ([facility]) anion gap 8 mEq/L 8-16 Anion Gap [facility] ([facility]) chloride level 101 mEq/L 98-107 Chloride Level [facility] ([facility]) carbon dioxide level 26 mEq/L 21-32 Carbon Dioxide Level [facility] ([facility]) calcium level 8.5 mg/dL 8.5-10.1 Calcium Level [facility] ( [facility]) ID Date Data Source [id number] 06/03/2020 11:25:00 AM EST [facility] ([facility]) Name Value Range Interpretation Code Description Data Marla rce(s) Supporting Document(s) AST/SGOT 56 U/L 7-37 Above high normal AST/SGOT [facility] ([facility]) alkaline phosphatase 160 U/L 45-117 Above high normal Alkaline Phosphatase [facility] ([facility]) ALT/SGPT 113 U/L 12-78 Above high normal ALT/SGPT [facility] ([facility]) bilirubin,total 4.7 mg/dL 0.2-1.0 Bilirubin,total AT[facility] NA ([facility]) bilirubin,direct 3.0 mg/dL 0.0-0.2 Above high normal Bilirubin,di rect [facility] ([facility]) total protein 6.9 gm/dL 6.4-8.2 Total Protein [facility] ( [facility]) albumin 3.2 gm/dL 3.2-5.2 Albumin [facility] ([facility]) albumin/globulin ratio Albumin/globu mar Ratio [facility] ([facility]) ID Date Data Source [id number] 06/03/2020 11:25:00 AM EST [facility] ([facility]) Name Value Range Interpretation Code Description Data Marla rce(s) Supporting Document(s) white blood count 15.9 10 4.0-10.0 Above high normal White Blood Count [facility] ([facility]) red blood count 4.85 10 4.30-6.10 Red Blood Count [facility] NA ([facility]) hematocrit 41.4 % 42.0-52.0 Below low normal Hematocrit [facility] ( [facility]) hemoglobin 14.2 g/dL 13.5-17.5 Hemoglobin [facility] ([facility]) mean corpuscular HGB conc 34.3 g/dL 32.0-36.5 Mean Corpu scular HGB Conc [facility] ([facility]) mean corpuscular hemoglobin 29.3 pg 27.0-33.0 Mean Cor puscular Hemoglobin [facility] ([facility]) mean corpuscular volume 85.4 fL 80.0-96.0 Mean Corpusc ular Volume [facility] ([facility]) red cell distribution width 13.5 % 11.5-14.5 Red Cell Distribution Width [facility] ([facility]) platelet count, automated 285 10 150-450 Platelet C ount, Automated [facility] ([facility]) neutrophils % 76.9 % 36.0-66.0 Above high normal Neutrophils % A [facility] ([facility]) mono % 13.0 % 0.0-5.0 Above high normal [place] % [place] ([facility]) lymph % 8.0 % 24.0-44.0 Below low normal Lymph % [facility] ( [facility]) baso % 0.2 % 0.0-1.0 Baso % [facility] ([facility]) eos % 0.8 % 0.0-3.0 Eos % [facility] ([facility]) immature granulocyte % 1.1 % 0-3.0 Immature Gran ulocyte % [facility] ([facility]) neutrophils # 12.2 10 1.5-8.5 Above high normal Neutrophils # A [facility] ([facility]) nucleated red blood cell % 0.0 % 0-0 Nucleated Red Blood Cell % [facility] ([facility]) mono # 2.1 10 0.0-0.8 Above high normal [place] # [facility] ([facility]) lymph # 1.3 10 1.5-5.0 Below low normal Lymph # [facility] ( [facility]) eos # 0.1 10 0.0-0.5 Eos # [facility] ([facility]) baso # 0.0 10 0.0-0.2 Baso # [facility] ([facility]) ID Date Data Source [id number] 06/02/2020 11:40:00 AM EST [facility] ([facility]) Name Value Range Interpretation Code Description Data Marla rce(s) Supporting Document(s) glucose, fasting 76 mg/dL 70-100 Glucose, Fasting AT [facility] ([facility]) creatinine for GFR 1.05 mg/dL 0.70-1.30 Creatinine for GF R [facility] ([facility]) blood urea nitrogen 16 mg/dL 7-18 Blood Urea Nitro gen [facility] ([facility]) potassium serum 4.0 mEq/L 3.5-5.1 Potassium Serum [facility] NA ([facility]) sodium level 137 mEq/L 136-145 Sodium Level [facility] ([facility]) glomerular filtration rate > 60.0 >60 Glomerula r Filtration Rate [facility] ([facility]) anion gap 8 mEq/L 8-16 Anion Gap [facility] ([facility]) calcium level 9.0 mg/dL 8.5-10.1 Calcium Level [facility] ( [facility]) chloride level 101 mEq/L 98-107 Chloride Level [facility] ([facility]) carbon dioxide level 28 mEq/L 21-32 Carbon Dioxide Level [facility] ([facility]) AST/SGOT 67 U/L 7-37 Above high normal AST/SGOT [facility] ([facility]) ALT/SGPT 159 U/L 12-78 Above high normal ALT/SGPT [facility] ([facility]) alkaline phosphatase 178 U/L 45-117 Above high normal Alkaline Phosphatase [facility] ([facility]) bilirubin,total 9.9 mg/dL 0.2-1.0 Above high normal Bilirubin,tot al [facility] ([facility]) albumin/globulin ratio Albumin/globu mar Ratio [facility] ([facility]) total protein 7.3 gm/dL 6.4-8.2 Total Protein [facility] ( [facility]) albumin 3.8 gm/dL 3.2-5.2 Albumin [place] ([facility]) ID Date Data Source [id number] 06/02/2020 11:40:00 AM EST [facility] ([facility]) Name Value Range Interpretation Code Description Data Marla rce(s) Supporting Document(s) red blood count 5.52 10 4.30-6.10 Red Blood Count [facility] NA ([facility]) white blood count 16.7 10 4.0-10.0 Above high normal White Blood Count [facility] ([facility]) hematocrit 47.8 % 42.0-52.0 Hematocrit [facility] ([facility]) mean corpuscular volume 86.6 fL 80.0-96.0 Mean Corpusc ular Volume [facility] ([facility]) hemoglobin 15.7 g/dL 13.5-17.5 Hemoglobin [facility] ([facility]) mean corpuscular hemoglobin 28.4 pg 27.0-33.0 Mean Cor puscular Hemoglobin [facility] ([facility]) red cell distribution width 13.5 % 11.5-14.5 Red Cell Distribution Width [facility] ([facility]) mean corpuscular HGB conc 32.8 g/dL 32.0-36.5 Mean Corpu scular HGB Conc [facility] ([facility]) neutrophils % 76.9 % 36.0-66.0 Above high normal Neutrophils % A [facility] ([facility]) platelet count, automated 286 10 150-450 Platelet C ount, Automated [facility] ([facility]) lymph % 9.5 % 24.0-44.0 Below low normal Lymph % [facility] ( [facility]) mono % 12.3 % 0.0-5.0 Above high normal [place] % [facility] ([facility]) baso % 0.1 % 0.0-1.0 Baso % [facility] ([facility]) eos % 0.5 % 0.0-3.0 Eos % [facility] ([facility]) immature granulocyte % 0.7 % 0-3.0 Immature Gran ulocyte % [facility] ([facility]) lymph # 1.6 10 1.5-5.0 Lymph # [facility] ([facility]) nucleated red blood cell % 0.0 % 0-0 Nucleated Red Blood Cell % [facility] ([facility]) neutrophils # 12.8 10 1.5-8.5 Above high normal Neutrophils # A [facility] ([facility]) mono # 2.1 10 0.0-0.8 Above high normal [place] # [facility] ([facility]) baso # 0.0 10 0.0-0.2 Baso # [facility] ([facility]) eos # 0.1 10 0.0-0.5 Eos # [facility] ([facility]) ID Date Data Source [id number] 06/02/2020 11:40:00 AM EST [place] ([facility]) Name Value Range Interpretation Code Description Data Marla rce(s) Supporting Document(s) glucose, fasting 76 mg/dL 70-100 Glucose, Fasting AT [facility] ([facility]) creatinine for GFR 1.05 mg/dL 0.70-1.30 Creatinine for GF R [place] ([facility]) blood urea nitrogen 16 mg/dL 7-18 Blood Urea Nitro gen [facility] ([facility]) glomerular filtration rate > 60.0 >60 Glomerula r Filtration Rate [facility] ([facility]) potassium serum 4.0 mEq/L 3.5-5.1 Potassium Serum [facility] NA ([facility]) sodium level 137 mEq/L 136-145 Sodium Level [facility] ([facility]) carbon dioxide level 28 mEq/L 21-32 Carbon Dioxide Level [facility] ([facility]) chloride level 101 mEq/L 98-107 Chloride Level [facility] ([facility]) anion gap 8 mEq/L 8-16 Anion Gap [facility] ([facility]) AST/SGOT 67 U/L 7-37 Above high normal AST/SGOT [facility] ([facility]) calcium level 9.0 mg/dL 8.5-10.1 Calcium Level [facility] ( [facility]) alkaline phosphatase 178 U/L 45-117 Above high normal Alkaline Phosphatase [facility] ([facility]) ALT/SGPT 159 U/L 12-78 Above high normal ALT/SGPT [facility] ([facility]) albumin 3.8 gm/dL 3.2-5.2 Albumin [facility] ([facility]) total protein 7.3 gm/dL 6.4-8.2 Total Protein [facility] ( [facility]) bilirubin,total 9.9 mg/dL 0.2-1.0 Above high normal Bilirubin,tot al [facility] ([facility]) albumin/globulin ratio Albumin/globu mar Ratio [facility] ([facility]) ID Date Data Source [id number] 06/02/2020 11:40:00 AM EST [facility] ([facility]) Name Value Range Interpretation Code Description Data Marla rce(s) Supporting Document(s) white blood count 16.7 10 4.0-10.0 Above high normal White Blood Count [facility] ([facility]) red blood count 5.52 10 4.30-6.10 Red Blood Count [facility] ([facility]) hematocrit 47.8 % 42.0-52.0 Hematocrit [facility] ([facility]) hemoglobin 15.7 g/dL 13.5-17.5 Hemoglobin [facility] ([facility]) mean corpuscular hemoglobin 28.4 pg 27.0-33.0 Mean Cor puscular Hemoglobin [facility] ([facility]) mean corpuscular volume 86.6 fL 80.0-96.0 Mean Corpusc ular Volume [facility] ([facility]) mean corpuscular HGB conc 32.8 g/dL 32.0-36.5 Mean Corpu scular HGB Conc [facility] ([facility]) red cell distribution width 13.5 % 11.5-14.5 Red Cell Distribution Width [facility] ([facility]) platelet count, automated 286 10 150-450 Platelet C ount, Automated [facility] ([facility]) neutrophils % 76.9 % 36.0-66.0 Above high normal Neutrophils % A [facility] ([facility]) lymph % 9.5 % 24.0-44.0 Below low normal Lymph % [facility] ( [facility]) eos % 0.5 % 0.0-3.0 Eos % [facility] ([facility]) baso % 0.1 % 0.0-1.0 Baso % [facility] ([facility]) mono % 12.3 % 0.0-5.0 Above high normal [place] % [facility] ([facility]) nucleated red blood cell % 0.0 % 0-0 Nucleated Red Blood Cell % [facility] ([facility]) immature granulocyte % 0.7 % 0-3.0 Immature Gran ulocyte % [facility] ([facility]) lymph # 1.6 10 1.5-5.0 Lymph # [facility] ([facility]) neutrophils # 12.8 10 1.5-8.5 Above high normal Neutrophils # A [facility] ([facility]) mono # 2.1 10 0.0-0.8 Above high normal [place] # [facility] ([facility]) eos # 0.1 10 0.0-0.5 Eos # [facility] ([facility]) baso # 0.0 10 0.0-0.2 Baso # [facility] ([facility]) ID Date Data Source [id number] 06/02/2020 11:40:00 AM EST [place] ([facility]) Name Value Range Interpretation Code Description Data Marla rce(s) Supporting Document(s) glucose, fasting 76 mg/dL 70-100 Glucose, Fasting AT [facility]) blood urea nitrogen 16 mg/dL 7-18 Blood Urea Nitro gen [place] ([facility]) glomerular filtration rate > 60.0 >60 Glomerula r Filtration Rate [place] ([facility]) creatinine for GFR 1.05 mg/dL 0.70-1.30 Creatinine for GF R [place] ([facility]) sodium level 137 mEq/L 136-145 Sodium Level [facility] ([facility]) potassium serum 4.0 mEq/L 3.5-5.1 Potassium Serum [facility] NA ([facility]) carbon dioxide level 28 mEq/L 21-32 Carbon Dioxide Level [facility] ([facility]) anion gap 8 mEq/L 8-16 Anion Gap [facility] ([facility]) chloride level 101 mEq/L 98-107 Chloride Level [facility] ([facility]) calcium level 9.0 mg/dL 8.5-10.1 Calcium Level [facility] ( [facility]) ALT/SGPT 159 U/L 12-78 Above high normal ALT/SGPT [facility] ([facility]) alkaline phosphatase 178 U/L 45-117 Above high normal Alkaline Phosphatase [facility] ([facility]) AST/SGOT 67 U/L 7-37 Above high normal AST/SGOT [facility] ([facility]) bilirubin,total 9.9 mg/dL 0.2-1.0 Above high normal Bilirubin,tot al [facility] ([facility]) albumin 3.8 gm/dL 3.2-5.2 Albumin [facility] ([facility]) total protein 7.3 gm/dL 6.4-8.2 Total Protein [facility] ( [facility]) albumin/globulin ratio Albumin/globu mar Ratio [facility] ([facility]) ID Date Data Source [id number] 06/02/2020 11:40:00 AM EST [facility] ([facility]) Name Value Range Interpretation Code Description Data Marla rce(s) Supporting Document(s) white blood count 16.7 10 4.0-10.0 Above high normal White Blood Count [facility] ([facility]) red blood count 5.52 10 4.30-6.10 Red Blood Count [facility] ([facility]) hemoglobin 15.7 g/dL 13.5-17.5 Hemoglobin [facility] ([facility]) mean corpuscular volume 86.6 fL 80.0-96.0 Mean Corpusc ular Volume [facility] ([facility]) hematocrit 47.8 % 42.0-52.0 Hematocrit [facility] ([facility]) mean corpuscular HGB conc 32.8 g/dL 32.0-36.5 Mean Corpu scular HGB Conc [facility] ([facility]) mean corpuscular hemoglobin 28.4 pg 27.0-33.0 Mean Cor puscular Hemoglobin [facility] ([facility]) platelet count, automated 286 10 150-450 Platelet C ount, Automated [facility] ([facility]) red cell distribution width 13.5 % 11.5-14.5 Red Cell Distribution Width [facility] ([facility]) neutrophils % 76.9 % 36.0-66.0 Above high normal Neutrophils % A [facility] ([facility]) mono % 12.3 % 0.0-5.0 Above high normal [place] % [facility] ([facility]) lymph % 9.5 % 24.0-44.0 Below low normal Lymph % [facility] ( [facility]) baso % 0.1 % 0.0-1.0 Baso % [facility] ([facility]) eos % 0.5 % 0.0-3.0 Eos % [facility] ([facility]) nucleated red blood cell % 0.0 % 0-0 Nucleated Red Blood Cell % [facility] ([facility]) immature granulocyte % 0.7 % 0-3.0 Immature Gran ulocyte % [facility] ([facility]) lymph # 1.6 10 1.5-5.0 Lymph # [facility] ([facility]) neutrophils # 12.8 10 1.5-8.5 Above high normal Neutrophils # A [facility] ([facility]) eos # 0.1 10 0.0-0.5 Eos # [facility] ([facility]) mono # 2.1 10 0.0-0.8 Above high normal [place] # [facility] ([facility]) baso # 0.0 10 0.0-0.2 Baso # [facility] ([facility]) ID Date Data Source [id number] 06/02/2020 11:40:00 AM EST [facility] ([facility]) Name Value Range Interpretation Code Description Data Marla rce(s) Supporting Document(s) glucose, fasting 76 mg/dL 70-100 Glucose, Fasting AT [facility] ([facility]) sodium level 137 mEq/L 136-145 Sodium Level [facility] (No [facility]) creatinine for GFR 1.05 mg/dL 0.70-1.30 Creatinine for GF R [place] ([facility]) blood urea nitrogen 16 mg/dL 7-18 Blood Urea Nitro gen [facility] ([facility]) glomerular filtration rate > 60.0 >60 Glomerula r Filtration Rate [facility] ([facility]) potassium serum 4.0 mEq/L 3.5-5.1 Potassium Serum [facility] NA ([facility]) calcium level 9.0 mg/dL 8.5-10.1 Calcium Level [facility] ( [facility]) carbon dioxide level 28 mEq/L 21-32 Carbon Dioxide Level [facility] ([facility]) chloride level 101 mEq/L 98-107 Chloride Level [facility] ([facility]) anion gap 8 mEq/L 8-16 Anion Gap [facility] ([facility]) AST/SGOT 67 U/L 7-37 Above high normal AST/SGOT [facility] ([facility]) total protein 7.3 gm/dL 6.4-8.2 Total Protein [facility] ( [facility]) ALT/SGPT 159 U/L 12-78 Above high normal ALT/SGPT [facility] ([facility]) bilirubin,total 9.9 mg/dL 0.2-1.0 Above high normal Bilirubin,tot al [facility] ([facility]) alkaline phosphatase 178 U/L 45-117 Above high normal Alkaline Phosphatase [facility] ([facility]) albumin/globulin ratio Albumin/globu mar Ratio [facility] ([facility]) albumin 3.8 gm/dL 3.2-5.2 Albumin [facility] ([facility]) ID Date Data Source [id number] 06/02/2020 11:40:00 AM EST [facility] ([facility]) Name Value Range Interpretation Code Description Data Marla rce(s) Supporting Document(s) hemoglobin 15.7 g/dL 13.5-17.5 Hemoglobin [facility] ([facility]) white blood count 16.7 10 4.0-10.0 Above high normal White Blood Count [facility] ([facility]) red blood count 5.52 10 4.30-6.10 Red Blood Count ATHE ([facility]) mean corpuscular hemoglobin 28.4 pg 27.0-33.0 Mean Cor puscular Hemoglobin [facility] ([facility]) mean corpuscular HGB conc 32.8 g/dL 32.0-36.5 Mean Corpu scular HGB Conc [facility] ([facility]) mean corpuscular volume 86.6 fL 80.0-96.0 Mean Corpusc ular Volume [facility] ([facility]) hematocrit 47.8 % 42.0-52.0 Hematocrit [facility] ([facility]) neutrophils % 76.9 % 36.0-66.0 Above high normal Neutrophils % [facility] lymph % 9.5 % 24.0-44.0 Below low normal Lymph % [facility] ( [facility]) red cell distribution width 13.5 % 11.5-14.5 Red Cell Distribution Width [facility] ([facility]) platelet count, automated 286 10 150-450 Platelet C ount, Automated [facility] ([facility]) baso % 0.1 % 0.0-1.0 Baso % [facility] ([facility]) immature granulocyte % 0.7 % 0-3.0 Immature Gran ulocyte % [facility] ([facility]) eos % 0.5 % 0.0-3.0 Eos % [facility] ([facility]) mono % 12.3 % 0.0-5.0 Above high normal Frontier % [facility] ([facility]) nucleated red blood cell % 0.0 % 0-0 Nucleated Red Blood Cell % [facility] ([facility]) neutrophils # 12.8 10 1.5-8.5 Above high normal Neutrophils # A THENA ([facility]) mono # 2.1 10 0.0-0.8 Above high normal Frontier # [facility] ([facility]) lymph # 1.6 10 1.5-5.0 Lymph # [facility] ([facility]) baso # 0.0 10 0.0-0.2 Baso # [facility] ([facility]) eos # 0.1 10 0.0-0.5 Eos # [facility] ([facility]) ID Date Data Source [id number] 06/02/2020 11:40:00 AM EST [place] ([facility]) Name Value Range Interpretation Code Description Data Marla rce(s) Supporting Document(s) glucose, fasting 76 mg/dL 70-100 Glucose, Fasting AT [facility] ([facility]) glomerular filtration rate > 60.0 >60 Glomerula r Filtration Rate [facility] ([facility]) sodium level 137 mEq/L 136-145 Sodium Level [facility] ([facility]) creatinine for GFR 1.05 mg/dL 0.70-1.30 Creatinine for GF R [facility] ([facility]) blood urea nitrogen 16 mg/dL 7-18 Blood Urea Nitro gen [facility] ([facility]) carbon dioxide level 28 mEq/L 21-32 Carbon Dioxide Level [place] ([facility]) potassium serum 4.0 mEq/L 3.5-5.1 Potassium Serum ATH NA ([facility]) chloride level 101 mEq/L 98-107 Chloride Level [place] ([facility]) alkaline phosphatase 178 U/L 45-117 Above high normal Alkaline Phosphatase [place] ([facility]) calcium level 9.0 mg/dL 8.5-10.1 Calcium Level [facility] ( [facility]) AST/SGOT 67 U/L 7-37 Above high normal AST/SGOT [place] ([facility]) anion gap 8 mEq/L 8-16 Anion Gap [place] ([facility]) ALT/SGPT 159 U/L 12-78 Above high normal ALT/SGPT [place] ([facility]) bilirubin,total 9.9 mg/dL 0.2-1.0 Above high normal Bilirubin,tot al [facility] ([facility]) total protein 7.3 gm/dL 6.4-8.2 Total Protein [place] ( [facility]) albumin 3.8 gm/dL 3.2-5.2 Albumin [place] ([facility]) albumin/globulin ratio Albumin/globu mar Ratio [place] ([facility]) ID Date Data Source [id number] 06/02/2020 11:40:00 AM EST [facility] ([facility]) Name Value Range Interpretation Code Description Data Marla rce(s) Supporting Document(s) white blood count 16.7 10 4.0-10.0 Above high normal White Blood Count [facility] ([facility]) hemoglobin 15.7 g/dL 13.5-17.5 Hemoglobin [facility] ([facility]) red blood count 5.52 10 4.30-6.10 Red Blood Count ATHE NA ([facility]) hematocrit 47.8 % 42.0-52.0 Hematocrit [facility] ([facility]) mean corpuscular hemoglobin 28.4 pg 27.0-33.0 Mean Cor puscular Hemoglobin [facility] ([facility]) mean corpuscular HGB conc 32.8 g/dL 32.0-36.5 Mean Corpu scular HGB Conc [facility] ([facility]) mean corpuscular volume 86.6 fL 80.0-96.0 Mean Corpusc ular Volume [facility] ([facility]) platelet count, automated 286 10 150-450 Platelet C ount, Automated [facility] ([facility]) red cell distribution width 13.5 % 11.5-14.5 Red Cell Distribution Width [facility] ([facility]) neutrophils % 76.9 % 36.0-66.0 Above high normal Neutrophils % A THE[facility] ([facility]) mono % 12.3 % 0.0-5.0 Above high normal Frontier % [facility] ([facility]) lymph % 9.5 % 24.0-44.0 Below low normal Lymph % [facility] ( [facility]) eos % 0.5 % 0.0-3.0 Eos % [facility] ([facility]) baso % 0.1 % 0.0-1.0 Baso % [facility] ([facility]) immature granulocyte % 0.7 % 0-3.0 Immature Gran ulocyte % [facility] ([facility]) nucleated red blood cell % 0.0 % 0-0 Nucleated Red Blood Cell % [facility] ([facility]) lymph # 1.6 10 1.5-5.0 Lymph # [facility] ([facility]) neutrophils # 12.8 10 1.5-8.5 Above high normal Neutrophils # A THENA ([facility]) mono # 2.1 10 0.0-0.8 Above high normal Frontier # [facility] ([facility]) baso # 0.0 10 0.0-0.2 Baso # [facility] ([facility]) eos # 0.1 10 0.0-0.5 Eos # [facility] ([facility]) ID Date Data Source [id number] 03/05/2020 01:23:55 PM EST [facility] Current Problems: Dental caries (ICD-521 .00) (WBC24-P84.9)[place] teeth impaction (ICD-520.6) (RIA34-P51.1)Chronic constipation (ICD-564.09) (ICD10- K59.09)Epilepsy, unspecified, not intractable, without status epilepticus (KHJ97-J17.909)Autistic disorder (ICD-299.00) (AZI57-D05.0)Acne (ICD-706.1) (UMR90-V42.0)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) (MPM37-M29.0)Encounter for general adult medical examination with abnormal [...] OB (Performed by Conrad Sánchez DDS) Chart Notes:timmy (Mar 05 2020 2:43PM): Rmhx(-) per aidCC: [...] Tooth 9 Watch: Arlen Grossman RDH by sahra (01/28/2020 2:41 PM): Assessment & Plan Problems:Added: Dental caries (ICD-521.00) (GNW57-Z75.9)Medications:SELSUN BLUE DRY SCALP 1 % EXTERNAL SHAMPOOZOLOFT [...] rce(s) Supporting Document(s) ID Date Data Source [id number] 01/28/2020 02:18:51 PM EDT [facility] Patient History Medical History:autismga llstonesconstipationacneseizures-last in 2011Surgical History:Family History:adopted-unknown family historySocial/Personal History: Chief Complaint: Routine CleaningVisit Type: ExamCurrent Problems: [place] teeth impaction (ICD-520.6) (XZM62-D54.1)Chronic constipation (ICD-564.09) (IJG24-A99.09)Epilepsy, unspecified, not intractable, without status epilepticus (PCK77-D94.909)Autistic disorder (ICD-299.00) (ICD10- F84.0)Acne (ICD-706.1) (BJI08-M44.0)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) (ICD10- L21.0)Encounter for general adult medical examination with abnormal findings (ICD-V70.0) (ZMK78-M89.01)Problem list reviewed during this update.Current Medications: SELSUN [...] Bitewings, 2 radiographic images (Performed by Gabbie ARREAGACollinth) B - (D0150) Comprehensive oral evaluation - new or established patient (Performed by Conrad Sánchez DDS) B - (D1110) Prophylaxis, adult (Performed by Gabbie ARREAGAArlen) Treatments:Type - CDT Code - Description T - (D2392) Resin-based composite, 2 surfaces, posterior on Tooth # 18 on Tooth Surface OB (Performed by Gabbie ARREAGAArlen) T - (D2392) Resin-based composite, 2 surfaces, posterior on Tooth # 15 on Tooth Surface OL (Performed by Cartwright RDCollinth) T - (D2392) Resin-based composite, 2 surfaces, posterior on Tooth # 14 on Tooth Surface OL (Performed by Gabbie ARREAGAArlen) T - (D7140) Extraction, erupted tooth or exposed root (elevation and/or forceps removal) on Tooth # 16 (Performed by Gabbie ARREAGAArlen) T - (D2392) Resin-based composite, 2 surfaces, posterior on Tooth # 30 on Tooth Surface OB (Performed by Cartwright RDCollinth) T - (D2392) Resin- based composite, 2 surfaces, posterior on Tooth # 2 on Tooth Surface OL (Performed by Gabbie ARREAGACollinth) T - (D2392) Resin-based composite, 2 surfaces, posterior on Tooth # 19 on Tooth Surface OB (Performed by Gabbie ARREAGA, Arlen) T - (D2330) Resin, one surface, anterior on Tooth # 8 on Tooth Surface F (Performed by Gabbie ARREAGA, Arlen) T - (D7140) Extraction, erupted tooth or exposed root (elevation and/or forceps removal) on Tooth # 1 (Performed by Gabbie ARREAGAArlen) Existing:Type - CDT Code - Description[E] Missing - [place] and Root On #17 Surface O Region XR, #32 Surface O Region XR Chart Notes:sahra (Jan 29 2020 4:28PM): CC: Establish careRMH: New pt; Pt is Autistic, Mental delay, Seizure disorder - [facility] ptAllergies: Hay fever, Tetanus toxin, Seroquel, Ragweek, [...] listen very well. Pt kept asking his [facility] staff if he was making green [...] flossing. NV: Restorative. Arlen Nieves RDH by sahra (01/29/2020 4:28 PM): ; timmy (Jan 30 2020 8:09AM): [facility](-). Special Needs patient. CC: none. Reviewed Xrays. [...] (01/28/2020 2:41 PM): Assessment & Plan Problems:Added: [place] teeth impaction (ICD-520.6) (HUB58-R71.1)Medications:SELSUN BLUE DRY SCALP 1 % EXTERNAL SHAMPOOZOLOFT 100 MG ORAL TABLETINDERAL LA 60 MG ORAL CAPSULE EXTENDED RELEASE 24 HOURBENZOYL PEROXIDE 2.5 % EXTERNAL GELLAMICTAL XR 100 MG ORAL TABLET EXTENDED RELEASE 24 HOURHYDROXYZINE HCL 50 MG ORAL TABLETMIRALAX ORAL POWDER DIFFERIN 0.1 % EXTERNAL CREAMAllergies:BIAXIN (Critical)* TOPOMAX (Critical)* RAGWEED (Critical)* SEROQUEL (Critical)* TETANUS TOXIN (Severe)* HAYFEVER (Moderate)Orders:Oral Surgery Referral [CPT-20386] Name Value Range Interpretation Code Description Data Marla rce(s) Supporting Document(s) Procedure Social History No Information Vital Signs ID Date Data Source UNK Name Value Range Interpretation Code Description Data Source(s) Diastolic blood pressure 65 mm[Hg] 65 mm[Hg] [facility] ([facility]) Body height 76 [in_i] 76 [in_i] [facility] ([facility]) Body mass index (BMI) [Ratio] 35.8 kg/m2 35.8 k g/m2 [facility] ([facility]) Systolic blood pressure 105 mm[Hg] 105 mm[Hg] A [facility] ([facility]) Body weight 4704 [oz_av] 4704 [oz_av] [facility] ([facility]) Diastolic blood pressure 71 mm[Hg] 71 mm[Hg] [facility] ([facility]) Body height 76 [in_i] 76 [in_i] [facility] ([facility]) Body mass index (BMI) [Ratio] 35 kg/m2 35 kg/ m2 [facility] ([facility]) Systolic blood pressure 104 mm[Hg] 104 mm[Hg] A [facility] ([facility]) Body weight 4600 [oz_av] 4600 [oz_av] [facility] ([facility]) Diastolic blood pressure 71 mm[Hg] 71 mm[Hg] [facility] ([facility]) Body height 76 [in_i] 76 [in_i] [facility] ([facility]) Body mass index (BMI) [Ratio] 35 kg/m2 35 kg/ m2 [facility] ([facility]) Systolic blood pressure 104 mm[Hg] 104 mm[Hg] A [facility] ([facility]) Body weight 4600 [oz_av] 4600 [oz_av] [facility] ([facility]) Systolic blood pressure 107 mm[Hg] 107 mm[Hg] M EDENT ([facility], ) Body surface area Derived from formula 2.47 m2 2.47 m2 MEDENT ([facility], ) Body weight 122.018 kg 122.018 kg MEDENT ([facility], ) Diastolic blood pressure 66 mm[Hg] 66 mm[Hg] MEDENT ([facility], ) Body height 74 [in_i] 74 [in_i] [facility], ) 6'2" Body weight 269.00 [lb_av] 269.00 [lb_av] MEDEN T ([facility], ) Body mass index (BMI) [Ratio] 34.5 kg/m2 34.5 k g/m2 MEDGIOVANNY ([facility], ) [place] body weight 190 [lb_av] 190 [lb_av] MEDEN T ([facility], ) Diastolic blood pressure 74 mm[Hg] 74 mm[Hg] [facility] ([facility]) Body height 76 [in_i] 76 [in_i] [facility] ([facility]) Body mass index (BMI) [Ratio] 33 kg/m2 33 kg/ m2 [facility] ([facility]) Systolic blood pressure 119 mm[Hg] 119 mm[Hg] A [facility] ([facility]) Body weight 4342.4 [oz_av] 4342.4 [oz_av] ATHEN A ([facility]) Diastolic blood pressure 74 mm[Hg] 74 mm[Hg] [facility] ([facility]) Body height 76 [in_i] 76 [in_i] [facility] ([facility]) Body mass index (BMI) [Ratio] 33 kg/m2 33 kg/ m2 [facility] ([facility]) Systolic blood pressure 119 mm[Hg] 119 mm[Hg] [facility] Body weight 4342.4 [oz_av] 4342.4 [oz_av] ATHEN A ([facility]) Diastolic blood pressure 74 mm[Hg] 74 mm[Hg] [facility] ([facility]) Body height 76 [in_i] 76 [in_i] [facility] ([facility]) Body mass index (BMI) [Ratio] 33 kg/m2 33 kg/ m2 [facility] ([facility]) Systolic blood pressure 119 mm[Hg] 119 mm[Hg] A [facility] ([facility]) Body weight 4342.4 [oz_av] 4342.4 [oz_av] ATHEN A ([facility]) Body height 74 [in_i] 74 [in_i] [facility] 6'2" Body weight 266.00 [lb_av] 266.00 [lb_av] MEDEN T ([facility]) Body mass index (BMI) [Ratio] 34.1 kg/m2 34.1 k g/m2 [facility] ([facility]) Systolic blood pressure 110 mm[Hg] 110 mm[Hg] M EDENT ([facility]) Diastolic blood pressure 60 mm[Hg] 60 mm[Hg] [facility] ([facility]) [place] body weight 190 [lb_av] 190 [lb_av] [employer] ([facility]) Body weight 120.658 kg 120.658 kg [facility] ([facility]) Body surface area Derived from formula 2.45 m2 2.45 m2 [facility] ([facility]) Diastolic blood pressure 72 mm[Hg] 72 mm[Hg] [facility] ([facility]) Body height 76 [in_i] 76 [in_i] [facility] ([facility]) Body mass index (BMI) [Ratio] 31.2 kg/m2 31.2 k g/m2 [facility] ([facility]) Systolic blood pressure 109 mm[Hg] 109 mm[Hg] A THENA ([facility]) Body weight 4102.4 [oz_av] 4102.4 [oz_av] ATHEN A ([facility]) Diastolic blood pressure 72 mm[Hg] 72 mm[Hg] [facility] ([facility]) Body height 76 [in_i] 76 [in_i] [facility] ([facility]) Body mass index (BMI) [Ratio] 31.2 kg/m2 31.2 k g/m2 [facility] ([facility]) Systolic blood pressure 109 mm[Hg] 109 mm[Hg] A THENA ([facility]) Body weight 4102.4 [oz_av] 4102.4 [oz_av] ATHEN A ([facility]) Diastolic blood pressure 72 mm[Hg] 72 mm[Hg] [facility] ([facility]) Body height 76 [in_i] 76 [in_i] [facility] ([facility]) Body mass index (BMI) [Ratio] 31.2 kg/m2 31.2 k g/m2 [facility] ([facility]) Systolic blood pressure 109 mm[Hg] 109 mm[Hg] A THENA ([facility]) Body weight 4102.4 [oz_av] 4102.4 [oz_av] ATHEN A ([facility]) Diastolic blood pressure 72 mm[Hg] 72 mm[Hg] [facility] ([facility]) Body height 76 [in_i] 76 [in_i] [facility] ([facility]) Body mass index (BMI) [Ratio] 31.2 kg/m2 31.2 k g/m2 [facility] ([facility]) Systolic blood pressure 109 mm[Hg] 109 mm[Hg] A THENA ([facility]) Body weight 4102.4 [oz_av] 4102.4 [oz_av] ATHEN A ([facility]) Diastolic blood pressure 72 mm[Hg] 72 mm[Hg] [facility] ([facility]) Body height 76 [in_i] 76 [in_i] [facility] ([facility]) Body mass index (BMI) [Ratio] 31.2 kg/m2 31.2 k g/m2 [facility] ([facility]) Systolic blood pressure 109 mm[Hg] 109 mm[Hg] A THENA ([facility]) Body weight 4102.4 [oz_av] 4102.4 [oz_av] ATHEN A ([facility]) Body mass index (BMI) [Ratio] 28.6 kg/m2 28.6 k g/m2 [facility] ([facility]) Diastolic blood pressure 78 mm[Hg] 78 mm[Hg] [facility] ([facility]) Body height 76 [in_i] 76 [in_i] [facility] ([facility]) Body weight 3760 [oz_av] 3760 [oz_av] [facility] ([facility]) Body weight 3760 [oz_av] 3760 [oz_av] [facility] ([facility]) Diastolic blood pressure 78 mm[Hg] 78 mm[Hg] [facility] ([facility]) Body height 76 [in_i] 76 [in_i] [facility] ([facility]) Body mass index (BMI) [Ratio] 28.6 kg/m2 28.6 k g/m2 [facility] ([facility]) Systolic blood pressure 123 mm[Hg] 123 mm[Hg] [facility]) Systolic blood pressure 123 mm[Hg] 123 mm[Hg] [facility]) Diastolic blood pressure 78 mm[Hg] 78 mm[Hg] [facility] ([facility]) Body height 76 [in_i] 76 [in_i] [facility] ([facility]) Body mass index (BMI) [Ratio] 28.6 kg/m2 28.6 k g/m2 [facility] ([facility]) Systolic blood pressure 123 mm[Hg] 123 mm[Hg] A [facility] ([facility]) Body weight 3760 [oz_av] 3760 [oz_av] [facility] ([facility]) Diastolic blood pressure 78 mm[Hg] 78 mm[Hg] [facility] ([facility]) Body height 76 [in_i] 76 [in_i] [facility] ([facility]) Body mass index (BMI) [Ratio] 28.6 kg/m2 28.6 k g/m2 [facility] ([facility]) Systolic blood pressure 123 mm[Hg] 123 mm[Hg] A THENA ([facility]) Body weight 3760 [oz_av] 3760 [oz_av] [facility] ([facility]) Diastolic blood pressure 78 mm[Hg] 78 mm[Hg] [facility] ([facility]) Body height 76 [in_i] 76 [in_i] [facility] ([facility]) Body mass index (BMI) [Ratio] 28.6 kg/m2 28.6 k g/m2 [facility] ([facility]) Systolic blood pressure 123 mm[Hg] 123 mm[Hg] A [facility] ([facility]) Body weight 3760 [oz_av] 3760 [oz_av] [facility] ([facility]) Diastolic blood pressure 78 mm[Hg] 78 mm[Hg] [facility] ([facility]) Body height 76 [in_i] 76 [in_i] [facility] ([facility]) Body mass index (BMI) [Ratio] 28.6 kg/m2 28.6 k g/m2 [facility] ([facility]) Systolic blood pressure 123 mm[Hg] 123 mm[Hg] A THENA ([facility]) Body weight 3760 [oz_av] 3760 [oz_av] [facility] ([facility]) Patient Treatment Plan of Care Planned Activity Planned Date Details Description Data Source (s) Miralax [facility] ([facility]) adapalene [facility] ([facility]) Miralax [facility] ([facility]) adapalene [facility] ([facility]) adapalene [facility] ([facility])
--- OUTSIDE RECORDS SUMMARY | 2021-02-26 11:17 | CCD ---
Author Author [facility] Address Unknown Phone Unavailable Care Team Providers Care Wood Router Name Role Phone Stefano Julian MD Unavailable [...] Unavailable Julian, Stefano Merrill MD Unavailable Unavailable Iesha, Stefano [...] Tawanna Unavailable Unavailable Terrie, Tawanna Unavailable Unavailable Terrei, Tawanna Unavailable Unavailable Terrie, Tawanna Unavailable Unavailable [...] is protected by Article 27-F of the [facility] Public Health law. If you continue you may have access to information: Regarding HIV / AIDS; Provided by facilities licensed or operated by the [facility] Office of Mental Health; or Provided by the [facility] Office for People With Developmental Disabilities. If such information is present, then the following [facility] mandated warning applies: This information [...] law may result in a fine or fdc sentence or both. A general authorization for the release of medical or other information is NOT sufficient authorization for further disc losure. Encounters Encounter Providers Location Date Indications Data Source(s ) IFEANYI Leos: [address], [place] [address], Ph. Attender: MARCO A SUGGS [facility] 01/17/2021 12:00:00 AM EDT [facility] ([facility]) IFEANYI Leos: [address], [place] [address], Ph. Attender: MARCO A SUGGS [facility] 09/28/2020 12:00:00 AM EDT [facility] ([facility]) IFEANYI Leos: [address], [place] [address], Ph. Attender: MARCO A SGUGS [facility] 09/28/2020 12:00:00 AM EDT [facility] ([facility]) Outpatient Attender: SU Mackay/Jolene/Natalio/Teodoro fox 09/01/2020 11:30:00 AM EDT [facility] Outpatient Attender: SEAN BERMUDEZ 09/01 09:05:00 AM EDT - 09/01/2020 09:05:[address] [facility] Ailyn Falcon MD: [address], [place] [address], Ph. Attender: Ailyn Falcon [facility] 08/03/2020 12:00:00 AM EDT [facility] ([facility]) Ailyn Falcon MD: [address], [place] [address], Ph. Attender: Ailyn Falcon [facility] 08/03/2020 12:00:00 AM EDT [facility] ([facility]) Ailyn Falcon MD: [address], [place] [address], Ph. Attender: Ailyn Falcon [facility] 08/03/2020 12:00:00 AM EDT [facility] ([facility]) Office Visit Attender: AGUILAR Mackay/Jolene/Natalio/Blanca indl 07/14/2020 02:00:00 PM EDT [facility] ([facility] Garfield Julian MD: [address] [place] [address], Ph. Attender: Garfield Julian MD [facility] 07/14/2020 12:00:00 AM EDT [facility] ([facility]) Garfield Julian MD: [address] [place] [address], Ph. Attender: Garfield Julian MD [facility] 07/14/2020 12:00:00 AM EDT [facility] ([facility]) Garfield Julian MD: [address] [place] [address], Ph. Attender: Garfield Julian MD [facility] 07/14/2020 12:00:00 AM EDT [facility] ([facility]) Garfield Julian MD: [address] [place] [address], Ph. Attender: Garfield Julian MD [facility] 07/14/2020 12:00:00 AM EDT [facility] ([facility]) Letty Wiley PA-C: [address], [place] [address], Ph. Attender: Letty BERMUDEZ [facility] 07/01/2020 12:00:00 AM EST [facility] ([facility]) Letty Wiley PA-C: [address], [place] [address], Ph. Attender: Letty BERMUDEZ [facility] 07/01/2020 12:00:00 AM EST [facility] ([facility]) Letty Wiley PA-C: [address], [place] [address], Ph. Attender: Letty BERMUDEZ [facility] 07/01/2020 12:00:00 AM EST [facility] ([facility]) Letty Wiley PA-C: [address], [place] [address], Ph. Attender: Letty BERMUDEZ [facility] 07/01/2020 12:00:00 AM EST [facility] ([facility]) Letty Wiley PA-C: [address], [place] [address], Ph. Attender: Letty BERMUDEZ [facility] 07/01/2020 12:00:00 AM EST [facility] ([facility]) Garfield Julian MD: [address], [place] [address], Ph. Attender: Garfield Julian MD [facility] 06/02/2020 12:00:00 AM EST [facility] ([facility]) Garfield Julian MD: [address], [place] [address], Ph. Attender: Garfield Julian MD [facility] 06/02/2020 12:00:00 AM EST [facility] ([facility]) Garfield Julian MD: [address], [place] [address], Ph. Attender: Garfield Julian MD [facility] 06/02/2020 12:00:00 AM EST [facility] ([facility]) Garfield Julian MD: [address], [place] [address], Ph. Attender: Garfield Julian MD [facility] 06/02/2020 12:00:00 AM EST [facility] ([facility]) Garfield Julian MD: [address], [place] [address], Ph. Attender: Garfield Julian MD [facility] 06/02/2020 12:00:00 AM EST [facility] ([facility]) Garfield Julian MD: [address], [place] [address], Ph. Attender: Garfield Julian MD [facility] 06/02/2020 12:00:00 AM EST [facility] ([facility]) Outpatient Attender: SEAN BERMUDEZ 05/07 09:10:00 AM EST - 05/07/2020 09:10:[address] [facility] Outpatient Attender: SEAN BERMUDEZ Family Practice 05/07 08:00:00 AM EST [facility] ([facility] Outpatient Attender: MARCO A SUGGS [facility] 03/05/2020 02:44:01 PM [facility] Outpatient Attender: MARCO A PATTERSON RPA-C J[facility] 03/05/2020 02:44:00 PM EST [facility] Outpatient Attender: MARCO A PATTERSON AKSHAT-C [facility] 01/30/2020 08:10:01 AM EDT [facility] Outpatient Attender: MARCO A PATTERSON AKSHAT-C [facility] 01/30/2020 08:10:00 AM EDT [facility] Outpatient Attender: SEAN BERMUDEZ 01/05 04:11:00 PM EDT - 01/06/2020 04:11:[address] [facility] Outpatient Attender: SEAN BERMUDEZ Family Practice 01/05 04:00:00 PM EDT [facility] ([facility]) Immunizations Vaccine Date Status Description Data Source(s) COVID-19 VACCINE Moderna 08/19/2020 12:00:00 AM EDT completed [place] Vaccine Series Complete: YESThis Data wa s Submitted to [facility]. COVID-19 VACCINE Moderna 07/22/2020 12:00:00 AM EDT completed [place] Vaccine Series Complete: NOThis Data was Submitted to [facility] [employer]. Medications Medication Brand Name Start Date Product Form Dose Route Admi nistrative Instructions Pharmacy Instructions Status Indications Reaction Description Data Source(s) adapalene completed adapalene [facility] ([facility]) adapalene completed adapalene [facility] ([facility]) adapalene completed adapalene [facility] ([facility]) Miralax completed Miralax [facility] ([facility]) Miralax completed Miralax [facility] ([facility]) Insurance Providers Payer name Policy type / Coverage type Policy ID Covered republican ID Covered republican's relationship to gould Policy [place] [id number] SP [id number] R MEDICAID -CLINIC [id number] 18 [id number] [place] [id number] SP [id number] Medicaid P [id number] MEDICAID [id number] SP [id number] Problems, Conditions, and Diagnoses Code Display Name Description Problem Type Effective Dates Data Source(s) F71 Moderate intellectual disabilities Moderate inte llectual disabilities Diagnosis 09/01/2020 09:05:[address] [facility] F840 Autistic disorder Autistic disorder Diagnosis 09/01/2020 09:05:[address] [facility] [id number] Low back pain Low Back Pain Problem 06/02/2020 12:00:00 AM EST [facility] ([facility]) 563018633 Low back pain Low Back Pain Problem 06/02/2020 12:00:00 AM EST [facility] ([facility]) 429439427 Low back pain Low Back Pain Problem 06/02/2020 12:00:00 AM EST [facility] ([facility]) 562004581 Low back pain Low Back Pain Problem 06/02/2020 12:00:00 AM EST [facility] ([facility]) 137561535 Low back pain Low Back Pain Problem 06/02/2020 12:00:00 AM EST [facility] ([facility]) 982519547 Low back pain Low Back Pain Problem 06/02/2020 12:00:00 AM EST [place] ([facility]) 521.00 Dental caries Dental caries 03/05/2020 02:43:30 PM EST [facility] 520.6 [place] teeth impaction [place] teeth impaction 01/30/2020 08:09:22 AM EDT [facility] 578442638 Impacted tooth Impacted Tooth Problem 01/28/2020 12:00:00 AM EDT - 08/03/2020 12:00:00 AM EDT [facility] ([facility]) 034947347 Impacted tooth Impacted Tooth Problem 01/28/2020 12:00:00 AM EDT - 08/03/2020 12:00:00 AM EDT [facility] ([facility]) 693387036 Impacted tooth Impacted Tooth Problem 01/28/2020 12:00:00 AM EDT - 08/03/2020 12:00:00 AM EDT [facility] ([facility]) 973163325 Impacted tooth Impacted Tooth Problem 01/28/2020 12:00: 00 AM EDT [facility] ([facility]) 621237976 Impacted tooth Impacted Tooth Problem 01/28/2020 12:00: 00 AM EDT [facility] ([facility]) 822956996 Impacted tooth Impacted Tooth Problem 01/28/2020 12:00: 00 AM EDT [facility] ([facility]) 519922068 Disorder of skin of head Disorder of Skin of Head Prob izzy 09/09/2019 12:00:00 AM EDT - 08/03/2020 12:00:00 AM EDT [facility] ([facility]) 769299756 Procedure by method Procedure by Method Problem 0 09/09/2019 12:00:00 AM EDT - 08/03/2020 12:00:00 AM EDT [facility] ([facility]) 325547027 Disorder of skin of head Disorder of Skin of Head Prob izzy 09/09/2019 12:00:00 AM EDT - 08/03/2020 12:00:00 AM EDT [facility] ([facility]) 141866358 Procedure by method Procedure by Method Problem 0 09/09/2019 12:00:00 AM EDT - 08/03/2020 12:00:00 AM EDT [facility] ([facility]) 306970345 Disorder of skin of head Disorder of Skin of Head Prob izzy 09/09/2019 12:00:00 AM EDT - 08/03/2020 12:00:00 AM EDT [facility] ([facility]) 591961341 Procedure by method Procedure by Method Problem 0 09/09/2019 12:00:00 AM EDT - 08/03/2020 12:00:00 AM EDT [facility] ([facility]) Surgeries/Procedures Procedure Description Date Indications Data Source(s) Laparoscopy,Surgical;Cholecystectomy 06/18/2020 12:00: 00 AM EST [facility] ([facility] ) Gallbladder Surgery 05/31/2020 12:00:00 AM EST [facility] ([facility]) Gallbladder Surgery 05/31/2020 12:00:00 AM EST [facility] ([facility]) Results ID Date Data Source [id number] 07/19/2020 09:02:00 AM EDT [facility] ([facility]) Name Value Range Interpretation Code Description Data Marla rce(s) Supporting Document(s) Rate & Rhythm Rate & Rhythm [facility] ([facility]) QRS Qrs [facility] ([facility]) DE Interval DE Interval [facility] ([facility]) QRS Duration QRS Duration [facility] ([facility]) QT Interval QT Interval [facility] ([facility]) ID Date Data Source [id number] 07/19/2020 09:02:00 AM EDT [facility] ([facility]) Name Value Range Interpretation Code Description Data Marla rce(s) Supporting Document(s) Rate & Rhythm Rate & Rhythm [facility] ([facility]) QRS Qrs [facility] ([facility]) DE Interval DE Interval [facility] ([facility]) QRS Duration QRS Duration [facility] ([facility]) QT Interval QT Interval [facility] ([facility]) ID Date Data Source [id number] 07/19/2020 09:02:00 AM EDT [facility] ([facility]) Name Value Range Interpretation Code Description Data Marla rce(s) Supporting Document(s) Rate & Rhythm Rate & Rhythm [facility] ([facility]) QRS Qrs [facility] ([facility]) DE Interval DE Interval [facility] ([facility]) QT Interval QT Interval [facility] ([facility]) QRS Duration QRS Duration [facility] ([facility]) ID Date Data Source [id number] 07/19/2020 09:02:00 AM EDT [facility] ([facility]) Name Value Range Interpretation Code Description Data Marla rce(s) Supporting Document(s) Rate & Rhythm Rate & Rhythm [facility] ([facility]) QRS Qrs [facility] ([facility]) DE Interval DE Interval [facility] ([facility]) QRS Duration QRS Duration [facility] ([facility]) QT Interval QT Interval [facility] ([facility]) ID Date Data Source [id number] 07/14/2020 10:00:00 AM EDT [facility]) Name Value Range Interpretation Code Description Data Marla rce(s) Supporting Document(s) estimated average glucose 94 mg/dL 60-110 Estimated Average Glucose [place] ([facility]) Hemoglobin A1c/Hemoglobin.total in Blood 4.9 % Hemoglobin a1C [place] ([facility]) ID Date Data Source [id number] 07/14/2020 10:00:00 AM EDT [facility]) Name Value Range Interpretation Code Description Data Marla rce(s) Supporting Document(s) ferritin 185 NG/mL 26-388 Ferritin [facility]) ID Date Data Source [id number] 07/14/2020 10:00:00 AM EDT [place] ([facility]) Name Value Range Interpretation Code Description Data Marla rce(s) Supporting Document(s) vitamin B12 level 574 pg/mL Vitamin B12 Level [place] ([facility]) folate 5.7 NG/mL Folate [facility] ([facility]) ID Date Data Source [id number] 07/14/2020 10:00:00 [facility] Name Value Range Interpretation Code Description Data Marla rce(s) Supporting Document(s) iron (fe) 85 ug/dL 65-175 Iron (Fe) [facility] ([facility]) total iron binding capacity 324 ug/dL 250-450 Total Ir on Binding Capacity [place] ([facility]) percent saturation 26.2 % 19.7-50.0 Percent Saturatio n [place] ([facility]) ID Date Data Source [id number] 07/14/2020 10:00:00 AM EDT [facility]) Name Value Range Interpretation Code Description Data Marla rce(s) Supporting Document(s) glucose, fasting 106 mg/dL 70-100 Above high normal Glucose, Fas ting [facility] ([facility]) blood urea nitrogen 12 mg/dL 7-18 Blood Urea Nitro gen [facility] ([facility]) creatinine for GFR 0.97 mg/dL 0.70-1.30 Creatinine for GF R [facility] ([facility]) glomerular filtration rate > 60.0 >60 Glomerula r Filtration Rate [facility] ([facility]) sodium level 138 mEq/L 136-145 Sodium Level [facility] ([facility]) potassium serum 3.9 mEq/L 3.5-5.1 Potassium Serum [facility] ([facility]) chloride level 105 mEq/L 98-107 Chloride Level [place] ([facility]) carbon dioxide level 27 mEq/L 21-32 Carbon Dioxide Level [facility] ([facility]) anion gap 6 mEq/L 8-16 Below low normal Anion Gap [facility] ( [facility]) calcium level 9.3 mg/dL 8.5-10.1 Calcium Level [facility] ( [facility]) AST/SGOT 30 U/L 7-37 AST/SGOT [facility] ([facility]) ALT/SGPT 52 U/L 12-78 ALT/SGPT [facility] ([facility]) alkaline phosphatase 90 U/L 45-117 Alkaline Phosph atase [facility] ([facility]) bilirubin,total 0.5 mg/dL 0.2-1.0 Bilirubin,total AT[facility]) total protein 7.6 gm/dL 6.4-8.2 Total Protein [facility] ( [facility]) albumin 4.0 gm/dL 3.2-5.2 Albumin [facility] ([facility]) albumin/globulin ratio Albumin/globu mar Ratio [facility] ([facility]) ID Date Data Source [id number] 07/14/2020 10:00:00 AM EDT [facility] ([facility]) Name Value Range Interpretation Code Description Data Marla rce(s) Supporting Document(s) white blood count 5.9 10 4.0-10.0 White Blood Count [facility] ([facility]) red blood count 4.93 10 4.30-6.10 Red Blood Count [facility] ([facility]) hemoglobin 14.1 g/dL 13.5-17.5 Hemoglobin [facility] ([facility]) hematocrit 43.1 % 42.0-52.0 Hematocrit [facility] ([facility]) mean corpuscular hemoglobin 28.6 pg 27.0-33.0 Mean Cor puscular Hemoglobin [facility] ([facility]) mean corpuscular volume 87.4 fL 80.0-96.0 Mean Corpusc ular Volume [facility] ([facility]) mean corpuscular HGB conc 32.7 g/dL 32.0-36.5 Mean Corpu scular HGB Conc [facility] ([facility]) red cell distribution width 13.6 % 11.5-14.5 Red Cell Distribution Width [facility] ([facility]) platelet count, automated 256 10 150-450 Platelet C ount, Automated [facility] ([facility]) neutrophils % 52.4 % 36.0-66.0 Neutrophils % [facility] ( [facility]) lymph % 37.2 % 24.0-44.0 Lymph % [facility] ([facility]) mono % 6.7 % 2.0-8.0 [place] % [facility] ([facility]) eos % 2.9 % 0.0-3.0 Eos % [facility] ([facility]) baso % 0.5 % 0.0-1.0 Baso % [place] ([facility]) nucleated red blood cell % 0.0 % 0-0 Nucleated Red Blood Cell % [facility] ([facility]) immature granulocyte % 0.3 % 0-3.0 Immature Gran ulocyte % [facility] ([facility]) neutrophils # 3.1 10 1.5-8.5 Neutrophils # [facility] ( [facility]) mono # 0.4 10 0.0-0.8 Faulk # [facility] ([facility]) lymph # 2.2 10 1.5-5.0 Lymph # [facility] ([facility]) eos # 0.2 10 0.0-0.5 Eos # [facility] ([facility]) baso # 0.0 10 0.0-0.2 Baso # [facility] ([facility]) ID Date Data Source [id number] 07/14/2020 10:00:00 AM EDT [facility] ([facility]) Name Value Range Interpretation Code Description Data Marla rce(s) Supporting Document(s) Hemoglobin A1c/Hemoglobin.total in Blood 4.9 % Hemoglobin a1C [facility] ([facility]) estimated average glucose 94 mg/dL 60-110 Estimated Average Glucose [facility] ([facility]) ID Date Data Source [id number] 07/14/2020 10:00:00 AM EDT [facility] ([facility]) Name Value Range Interpretation Code Description Data Marla rce(s) Supporting Document(s) ferritin 185 NG/mL 26-388 Ferritin [facility] ([facility]) ID Date Data Source [id number] 07/14/2020 10:00:00 AM EDT [facility] ([facility]) Name Value Range Interpretation Code Description Data Marla rce(s) Supporting Document(s) vitamin B12 level 574 pg/mL Vitamin B12 Level [facility] ([facility]) folate 5.7 NG/mL Folate [facility] ([facility]) ID Date Data Source [id number] 07/14/2020 10:00:00 AM EDT [facility] ([facility]) Name Value Range Interpretation Code Description Data Marla rce(s) Supporting Document(s) iron (fe) 85 ug/dL 65-175 Iron (Fe) [facility] ([facility]) total iron binding capacity 324 ug/dL 250-450 Total Ir on Binding Capacity [facility] ([facility]) percent saturation 26.2 % 19.7-50.0 Percent Saturatio n [facility] ([facility]) ID Date Data Source [id number] 07/14/2020 10:00:00 AM EDT [facility] ([facility]) Name Value Range Interpretation Code Description Data Marla rce(s) Supporting Document(s) glucose, fasting 106 mg/dL 70-100 Above high normal Glucose, Fas ting [facility] ([facility]) blood urea nitrogen 12 mg/dL 7-18 Blood Urea Nitro gen [facility] ([facility]) creatinine for GFR 0.97 mg/dL 0.70-1.30 Creatinine for GF R [facility] ([facility]) glomerular filtration rate > 60.0 >60 Glomerula r Filtration Rate [facility] ([facility]) potassium serum 3.9 mEq/L 3.5-5.1 Potassium Serum [facility] ([facility]) sodium level 138 mEq/L 136-145 Sodium Level [facility] ([facility]) chloride level 105 mEq/L 98-107 Chloride Level [facility] ([facility]) anion gap 6 mEq/L 8-16 Below low normal Anion Gap [facility] ( [facility]) carbon dioxide level 27 mEq/L 21-32 Carbon Dioxide Level [facility] ([facility]) calcium level 9.3 mg/dL 8.5-10.1 Calcium Level [facility] ( [facility]) ALT/SGPT 52 U/L 12-78 ALT/SGPT [facility] ([facility]) AST/SGOT 30 U/L 7-37 AST/SGOT [facility] ([facility]) alkaline phosphatase 90 U/L 45-117 Alkaline Phosph atase [facility] ([facility]) bilirubin,total 0.5 mg/dL 0.2-1.0 Bilirubin,total [facility] ([facility]) total protein 7.6 gm/dL 6.4-8.2 Total Protein [facility] ( [facility]) albumin 4.0 gm/dL 3.2-5.2 Albumin [facility] ([facility]) albumin/globulin ratio Albumin/globu mar Ratio [facility] ([facility]) ID Date Data Source [id number] 07/14/2020 10:00:00 AM EDT [facility] ([facility]) Name Value Range Interpretation Code Description Data Marla rce(s) Supporting Document(s) white blood count 5.9 10 4.0-10.0 White Blood Count [facility] ([facility]) red blood count 4.93 10 4.30-6.10 Red Blood Count [facility] ([facility]) hematocrit 43.1 % 42.0-52.0 Hematocrit [facility] ([facility]) hemoglobin 14.1 g/dL 13.5-17.5 Hemoglobin [facility] ([facility]) mean corpuscular volume 87.4 fL 80.0-96.0 Mean Corpusc ular Volume [facility] ([facility]) mean corpuscular hemoglobin 28.6 pg 27.0-33.0 Mean Cor puscular Hemoglobin [facility] ([facility]) mean corpuscular HGB conc 32.7 g/dL 32.0-36.5 Mean Corpu scular HGB Conc [facility] ([facility]) red cell distribution width 13.6 % 11.5-14.5 Red Cell Distribution Width [facility] ([facility]) platelet count, automated 256 10 150-450 Platelet C ount, Automated [place] ([facility]) neutrophils % 52.4 % 36.0-66.0 Neutrophils % [place] ( [facility]) lymph % 37.2 % 24.0-44.0 Lymph % [place] ([facility]) mono % 6.7 % 2.0-8.0 Faulk % [facility] ([facility]) eos % 2.9 % 0.0-3.0 Eos % [facility] ([facility]) baso % 0.5 % 0.0-1.0 Baso % [place] ([facility]) immature granulocyte % 0.3 % 0-3.0 Immature Gran ulocyte % [place] ([facility]) neutrophils # 3.1 10 1.5-8.5 Neutrophils # [place] ( [facility]) nucleated red blood cell % 0.0 % 0-0 Nucleated Red Blood Cell % [place] ([facility]) lymph # 2.2 10 1.5-5.0 Lymph # [place] ([facility]) eos # 0.2 10 0.0-0.5 Eos # [place] ([facility]) mono # 0.4 10 0.0-0.8 Faulk # [place] ([facility]) baso # 0.0 10 0.0-0.2 Baso # [place] ([facility]) ID Date Data Source [id number] 07/14/2020 10:00:00 AM EDT [place] ([facility]) Name Value Range Interpretation Code Description Data Marla rce(s) Supporting Document(s) Hemoglobin A1c/Hemoglobin.total in Blood 4.9 % Hemoglobin a1C [place] ([facility]) estimated average glucose 94 mg/dL 60-110 Estimated Average Glucose [place] ([facility]) ID Date Data Source [id number] 07/14/2020 10:00:00 AM EDT [place] ([facility]) Name Value Range Interpretation Code Description Data Marla rce(s) Supporting Document(s) ferritin 185 NG/mL 26-388 Ferritin [place] ([facility]) ID Date Data Source [id number] 07/14/2020 10:00:00 AM EDT [place] ([facility]) Name Value Range Interpretation Code Description Data Marla rce(s) Supporting Document(s) vitamin B12 level 574 pg/mL Vitamin B12 Level [place] ([facility]) folate 5.7 NG/mL Folate [place] ([facility]) ID Date Data Source [id number] 07/14/2020 10:00:00 AM EDT [place] ([facility]) Name Value Range Interpretation Code Description Data Marla rce(s) Supporting Document(s) iron (fe) 85 ug/dL 65-175 Iron (Fe) [place] ([facility]) total iron binding capacity 324 ug/dL 250-450 Total Ir on Binding Capacity [place] ([facility]) percent saturation 26.2 % 19.7-50.0 Percent Saturatio n [place] ([facility]) ID Date Data Source [id number] 07/14/2020 10:00:00 AM EDT [place] ([facility]) Name Value Range Interpretation Code Description Data Marla rce(s) Supporting Document(s) glucose, fasting 106 mg/dL 70-100 Above high normal Glucose, Fas ting [place] ([facility]) creatinine for GFR 0.97 mg/dL 0.70-1.30 Creatinine for GF R [place] ([facility]) blood urea nitrogen 12 mg/dL 7-18 Blood Urea Nitro gen [place] ([facility]) glomerular filtration rate > 60.0 >60 Glomerula r Filtration Rate [place] ([facility]) potassium serum 3.9 mEq/L 3.5-5.1 Potassium Serum [place] ([facility]) sodium level 138 mEq/L 136-145 Sodium Level [place] ([facility]) chloride level 105 mEq/L 98-107 Chloride Level [place] ([facility]) anion gap 6 mEq/L 8-16 Below low normal Anion Gap [facility] ( [facility]) carbon dioxide level 27 mEq/L 21-32 Carbon Dioxide Level [place] ([facility]) calcium level 9.3 mg/dL 8.5-10.1 Calcium Level [place] ( [facility]) ALT/SGPT 52 U/L 12-78 ALT/SGPT [place] ([facility]) AST/SGOT 30 U/L 7-37 AST/SGOT [place] ([facility]) alkaline phosphatase 90 U/L 45-117 Alkaline Phosph atase [place] ([facility]) bilirubin,total 0.5 mg/dL 0.2-1.0 Bilirubin,total [place] ([facility]) total protein 7.6 gm/dL 6.4-8.2 Total Protein [place] ( [facility]) albumin 4.0 gm/dL 3.2-5.2 Albumin [place] ([facility]) albumin/globulin ratio Albumin/globu mar Ratio [place] ([facility]) ID Date Data Source [id number] 07/14/2020 10:00:00 AM EDT [place] ([facility]) Name Value Range Interpretation Code Description Data Marla rce(s) Supporting Document(s) white blood count 5.9 10 4.0-10.0 White Blood Count [place] ([facility]) hemoglobin 14.1 g/dL 13.5-17.5 Hemoglobin [place] ([facility]) red blood count 4.93 10 4.30-6.10 Red Blood Count [facility] [place] ([facility]) hematocrit 43.1 % 42.0-52.0 Hematocrit [place] ([facility]) mean corpuscular volume 87.4 fL 80.0-96.0 Mean Corpusc ular Volume [place] ([facility]) mean corpuscular hemoglobin 28.6 pg 27.0-33.0 Mean Cor puscular Hemoglobin [place] ([facility]) mean corpuscular HGB conc 32.7 g/dL 32.0-36.5 Mean Corpu scular HGB Conc [place] ([facility]) red cell distribution width 13.6 % 11.5-14.5 Red Cell Distribution Width [place] ([facility]) platelet count, automated 256 10 150-450 Platelet C ount, Automated [place] ([facility]) lymph % 37.2 % 24.0-44.0 Lymph % [place] ([facility]) neutrophils % 52.4 % 36.0-66.0 Neutrophils % [place] ( [facility]) mono % 6.7 % 2.0-8.0 Fa[place] % [place] ([facility]) eos % 2.9 % 0.0-3.0 Eos % [place] ([facility]) baso % 0.5 % 0.0-1.0 Baso % [place] ([facility]) immature granulocyte % 0.3 % 0-3.0 Immature Gran ulocyte % [place] ([facility]) nucleated red blood cell % 0.0 % 0-0 Nucleated Red Blood Cell % [place] ([facility]) neutrophils # 3.1 10 1.5-8.5 Neutrophils # [place] ( [facility]) lymph # 2.2 10 1.5-5.0 Lymph # [place] ([facility]) eos # 0.2 10 0.0-0.5 Eos # [place] ([facility]) mono # 0.4 10 0.0-0.8 Faulk # [place] ([facility]) baso # 0.0 10 0.0-0.2 Baso # [place] ([facility]) ID Date Data Source [id number] 07/14/2020 10:00:00 AM EDT [place] ([facility]) Name Value Range Interpretation Code Description Data Marla rce(s) Supporting Document(s) Hemoglobin A1c/Hemoglobin.total in Blood 4.9 % Hemoglobin a1C [place] ([facility]) estimated average glucose 94 mg/dL 60-110 Estimated Average Glucose [place] ([facility]) ID Date Data Source [id number] 07/14/2020 10:00:00 AM EDT [facility]) Name Value Range Interpretation Code Description Data Marla rce(s) Supporting Document(s) ferritin 185 NG/mL 26-388 Ferritin [place] ([facility]) ID Date Data Source [id number] 07/14/2020 10:00:00 AM EDT [place] ([facility]) Name Value Range Interpretation Code Description Data Marla rce(s) Supporting Document(s) vitamin B12 level 574 pg/mL Vitamin B12 Level [place] ([facility]) folate 5.7 NG/mL Folate [place] ([facility]) ID Date Data Source [id number] 07/14/2020 10:00:00 AM EDT [facility]) Name Value Range Interpretation Code Description Data Marla rce(s) Supporting Document(s) iron (fe) 85 ug/dL 65-175 Iron (Fe) [place] ([facility]) total iron binding capacity 324 ug/dL 250-450 Total Ir on Binding Capacity [place] ([facility]) percent saturation 26.2 % 19.7-50.0 Percent Saturatio n [place] ([facility]) ID Date Data Source [id number] 07/14/2020 10:00:00 AM EDT [place] ([facility]) Name Value Range Interpretation Code Description Data Marla rce(s) Supporting Document(s) glucose, fasting 106 mg/dL 70-100 Above high normal Glucose, Fas ting [place] ([facility]) blood urea nitrogen 12 mg/dL 7-18 Blood Urea Nitro gen [place] ([facility]) creatinine for GFR 0.97 mg/dL 0.70-1.30 Creatinine for GF R [place] ([facility]) glomerular filtration rate > 60.0 >60 Glomerula r Filtration Rate [place] ([facility]) sodium level 138 mEq/L 136-145 Sodium Level [place] ([facility]) potassium serum 3.9 mEq/L 3.5-5.1 Potassium Serum [facility] ([facility]) chloride level 105 mEq/L 98-107 Chloride Level [place] ([facility]) carbon dioxide level 27 mEq/L 21-32 Carbon Dioxide Level [place] ([facility]) anion gap 6 mEq/L 8-16 Below low normal Anion Gap [place] ( [facility]) AST/SGOT 30 U/L 7-37 AST/SGOT [place] ([facility]) calcium level 9.3 mg/dL 8.5-10.1 Calcium Level [place] ( [facility]) ALT/SGPT 52 U/L 12-78 ALT/SGPT [place] ([facility]) alkaline phosphatase 90 U/L 45-117 Alkaline Phosph atase [place] ([facility]) bilirubin,total 0.5 mg/dL 0.2-1.0 Bilirubin,total [facility] ([facility]) total protein 7.6 gm/dL 6.4-8.2 Total Protein [place] ( [facility]) albumin 4.0 gm/dL 3.2-5.2 Albumin [place] ([facility]) albumin/globulin ratio Albumin/globu mar Ratio [place] ([facility]) ID Date Data Source [id number] 07/14/2020 10:00:00 AM EDT [place] ([facility]) Name Value Range Interpretation Code Description Data Marla rce(s) Supporting Document(s) white blood count 5.9 10 4.0-10.0 White Blood Count [place] ([facility]) red blood count 4.93 10 4.30-6.10 Red Blood Count [facility] [place] ([facility]) hemoglobin 14.1 g/dL 13.5-17.5 Hemoglobin [place] ([facility]) mean corpuscular volume 87.4 fL 80.0-96.0 Mean Corpusc ular Volume [place] ([facility]) hematocrit 43.1 % 42.0-52.0 Hematocrit [place] ([facility]) mean corpuscular hemoglobin 28.6 pg 27.0-33.0 Mean Cor puscular Hemoglobin [place] ([facility]) red cell distribution width 13.6 % 11.5-14.5 Red Cell Distribution Width [place] ([facility]) mean corpuscular HGB conc 32.7 g/dL 32.0-36.5 Mean Corpu scular HGB Conc [place] ([facility]) platelet count, automated 256 10 150-450 Platelet C ount, Automated [place] ([facility]) neutrophils % 52.4 % 36.0-66.0 Neutrophils % [place] ( [facility]) lymph % 37.2 % 24.0-44.0 Lymph % [place] ([facility]) eos % 2.9 % 0.0-3.0 Eos % [place] ([facility]) mono % 6.7 % 2.0-8.0 Faulk % [place] ([facility]) baso % 0.5 % 0.0-1.0 Baso % [place] ([facility]) immature granulocyte % 0.3 % 0-3.0 Immature Gran ulocyte % [place] ([facility]) nucleated red blood cell % 0.0 % 0-0 Nucleated Red Blood Cell % [place] ([facility]) neutrophils # 3.1 10 1.5-8.5 Neutrophils # [place] ( [facility]) lymph # 2.2 10 1.5-5.0 Lymph # [place] ([facility]) eos # 0.2 10 0.0-0.5 Eos # [place] ([facility]) mono # 0.4 10 0.0-0.8 Faulk # [place] ([facility]) baso # 0.0 10 0.0-0.2 Baso # [place] ([facility]) ID Date Data Source [id number] 07/13/2020 02:00:00 PM EDT [facility] Name Value Range Interpretation Code Description Data Marla rce(s) Supporting Document(s) SARS coronavirus 2 RNA [[facility]] in Res piratory specimen by ANJU with probe detection NEGATIVE [facility] This lab was ordered by [facility] a nd reported by [facility]. ID Date Data Source [id number] 06/19/2020 05:02:00 AM EST [place] ([facility]) Name Value Range Interpretation Code Description Data Marla rce(s) Supporting Document(s) magnesium level 2.1 mg/dL 1.8-2.4 Magnesium Level [facility] ([facility]) ID Date Data Source [id number] 06/19/2020 05:02:00 AM EST [place] ([facility]) Name Value Range Interpretation Code Description Data Marla rce(s) Supporting Document(s) phosphorus level 2.5 mg/dL 2.5-4.[address] [facility] ([facility]) ID Date Data Source [id number] 06/19/2020 05:02:00 AM EST [place] ([facility]) Name Value Range Interpretation Code Description Data Marla rce(s) Supporting Document(s) glucose, fasting 116 mg/dL 70-100 Above high normal Glucose, Fas ting [place] ([facility]) blood urea nitrogen 8 mg/dL 7-18 Blood Urea Nitro gen [place] ([facility]) creatinine for GFR 0.70 mg/dL 0.70-1.30 Creatinine for GF R [place] ([facility]) glomerular filtration rate > 60.0 >60 Glomerula r Filtration Rate [place] ([facility]) sodium level 142 mEq/L 136-145 Sodium Level [place] ([facility]) potassium serum 4.5 mEq/L 3.5-5.1 Potassium Serum [facility] ([facility]) chloride level 109 mEq/L 98-107 Above high normal Chloride Level [place] ([facility]) anion gap 8 mEq/L 8-16 Anion Gap [place] ([facility]) carbon dioxide level 25 mEq/L 21-32 Carbon Dioxide Level [place] ([facility]) calcium level 7.5 mg/dL 8.5-10.1 Below low normal Calcium Level AT [facility]) AST/SGOT 31 U/L 7-37 AST/SGOT [place] ([facility]) ALT/SGPT 41 U/L 12-78 ALT/SGPT [place] ([facility]) alkaline phosphatase 100 U/L 45-117 Alkaline Phosph atase [place] ([facility]) bilirubin,total 0.6 mg/dL 0.2-1.0 Bilirubin,total [facility] ([facility]) total protein 5.4 gm/dL 6.4-8.2 Below low normal Total Protein AT [facility]) albumin 2.2 gm/dL 3.2-5.2 Below low normal Albumin [place] ( [facility]) albumin/globulin ratio Albumin/globu mar Ratio [place] ([facility]) ID Date Data Source [id number] 06/19/2020 05:02:00 AM EST [place] ([facility]) Name Value Range Interpretation Code Description Data Marla rce(s) Supporting Document(s) white blood count 5.8 10 4.0-10.0 White Blood Count [place] ([facility]) red blood count 3.88 10 4.30-6.10 Below low normal Red Blood Coun t [facility] ([facility]) hematocrit 34.1 % 42.0-52.0 Below low normal Hematocrit [place] ( [facility]) hemoglobin 10.9 g/dL 13.5-17.5 Below low normal Hemoglobin [place] ( [facility]) mean corpuscular volume 87.9 fL 80.0-96.0 Mean Corpusc ular Volume [place] ([facility]) mean corpuscular hemoglobin 28.1 pg 27.0-33.0 Mean Cor puscular Hemoglobin [place] ([facility]) mean corpuscular HGB conc 32.0 g/dL 32.0-36.5 Mean Corpu scular HGB Conc [place] ([facility]) red cell distribution width 13.4 % 11.5-14.5 Red Cell Distribution Width [place] ([facility]) platelet count, automated 211 10 150-450 Platelet C ount, Automated [facility] ([facility]) nucleated red blood cell % 0.0 % 0-0 Nucleated Red Blood Cell % [place] ([facility]) ID Date Data Source [id number] 06/19/2020 05:02:00 AM EST [place] ([facility]) Name Value Range Interpretation Code Description Data Marla rce(s) Supporting Document(s) magnesium level 2.1 mg/dL 1.8-2.4 Magnesium Level [facility] ([facility]) ID Date Data Source [id number] 06/19/2020 05:02:00 AM EST [place] ([facility]) Name Value Range Interpretation Code Description Data Marla rce(s) Supporting Document(s) phosphorus level 2.5 mg/dL 2.5-4.9 Phosphorus Level AT [facility]) ID Date Data Source [id number] 06/19/2020 05:02:00 AM EST [place] ([facility]) Name Value Range Interpretation Code Description Data Marla rce(s) Supporting Document(s) glucose, fasting 116 mg/dL 70-100 Above high normal Glucose, Fas ting [place] ([facility]) blood urea nitrogen 8 mg/dL 7-18 Blood Urea Nitro gen [place] ([facility]) creatinine for GFR 0.70 mg/dL 0.70-1.30 Creatinine for GF R [place] ([facility]) glomerular filtration rate > 60.0 >60 Glomerula r Filtration Rate [place] ([facility]) sodium level 142 mEq/L 136-145 Sodium Level [place] ([facility]) potassium serum 4.5 mEq/L 3.5-5.1 Potassium Serum [facility] ([facility]) chloride level 109 mEq/L 98-107 Above high normal Chloride Level [place] ([facility]) carbon dioxide level 25 mEq/L 21-32 Carbon Dioxide Level [place] ([facility]) anion gap 8 mEq/L 8-16 Anion Gap [place] ([facility]) calcium level 7.5 mg/dL 8.5-10.1 Below low normal Calcium Level AT [facility]) AST/SGOT 31 U/L 7-37 AST/SGOT [place] ([facility]) ALT/SGPT 41 U/L 12-78 ALT/SGPT [place] ([facility]) alkaline phosphatase 100 U/L 45-117 Alkaline Phosph atase [place] ([facility]) bilirubin,total 0.6 mg/dL 0.2-1.0 Bilirubin,total [facility] ([facility]) total protein 5.4 gm/dL 6.4-8.2 Below low normal Total Protein AT [facility]) albumin 2.2 gm/dL 3.2-5.2 Below low normal Albumin [place] ( [facility]) albumin/globulin ratio Albumin/globu mar Ratio [place] ([facility]) ID Date Data Source [id number] 06/19/2020 05:02:00 AM EST [place] ([facility]) Name Value Range Interpretation Code Description Data Marla rce(s) Supporting Document(s) white blood count 5.8 10 4.0-10.0 White Blood Count [place] ([facility]) hemoglobin 10.9 g/dL 13.5-17.5 Below low normal Hemoglobin [place] ( [facility]) red blood count 3.88 10 4.30-6.10 Below low normal Red Blood Coun t [place] ([facility]) mean corpuscular volume 87.9 fL 80.0-96.0 Mean Corpusc ular Volume [facility] ([facility]) hematocrit 34.1 % 42.0-52.0 Below low normal Hematocrit [place] ( [facility]) mean corpuscular hemoglobin 28.1 pg 27.0-33.0 Mean Cor puscular Hemoglobin [place] ([facility]) mean corpuscular HGB conc 32.0 g/dL 32.0-36.5 Mean Corpu scular HGB Conc [facility] ([facility]) red cell distribution width 13.4 % 11.5-14.5 Red Cell Distribution Width [place] ([facility]) platelet count, automated 211 10 150-450 Platelet C ount, Automated [place] ([facility]) nucleated red blood cell % 0.0 % 0-0 Nucleated Red Blood Cell % [facility] ([facility]) ID Date Data Source [id number] 06/19/2020 05:02:00 AM EST [place] ([facility]) Name Value Range Interpretation Code Description Data Marla rce(s) Supporting Document(s) magnesium level 2.1 mg/dL 1.8-2.4 Magnesium Level [facility] ([facility]) ID Date Data Source [id number] 06/19/2020 05:02:00 AM EST [place] ([facility]) Name Value Range Interpretation Code Description Data Marla rce(s) Supporting Document(s) phosphorus level 2.5 mg/dL 2.5-4.9 Phosphorus Level AT [facility]) ID Date Data Source [id number] 06/19/2020 05:02:00 AM EST [place] ([facility]) Name Value Range Interpretation Code Description Data Marla rce(s) Supporting Document(s) glucose, fasting 116 mg/dL 70-100 Above high normal Glucose, Fas ting [facility] ([facility]) blood urea nitrogen 8 mg/dL 7-18 Blood Urea Nitro gen [facility] ([facility]) creatinine for GFR 0.70 mg/dL 0.70-1.30 Creatinine for GF R [place] ([facility]) glomerular filtration rate > 60.0 >60 Glomerula r Filtration Rate [place] ([facility]) potassium serum 4.5 mEq/L 3.5-5.1 Potassium Serum [facility] ([facility]) sodium level 142 mEq/L 136-145 Sodium Level [facility] ([facility]) chloride level 109 mEq/L 98-107 Above high normal Chloride Level [facility] ([facility]) carbon dioxide level 25 mEq/L 21-32 Carbon Dioxide Level [place] ([facility]) anion gap 8 mEq/L 8-16 Anion Gap [place] ([facility]) AST/SGOT 31 U/L 7-37 AST/SGOT [place] ([facility]) calcium level 7.5 mg/dL 8.5-10.1 Below low normal Calcium Level AT [facility] ([facility]) ALT/SGPT 41 U/L 12-78 ALT/SGPT [facility] ([facility]) alkaline phosphatase 100 U/L 45-117 Alkaline Phosph atase [facility] ([facility]) bilirubin,total 0.6 mg/dL 0.2-1.0 Bilirubin,total [facility] ([facility]) albumin 2.2 gm/dL 3.2-5.2 Below low normal Albumin [place] ( [facility]) total protein 5.4 gm/dL 6.4-8.2 Below low normal Total Protein AT [facility] ([facility]) albumin/globulin ratio Albumin/globu mar Ratio [facility] ([facility]) ID Date Data Source [id number] 06/19/2020 05:02:00 AM EST [place] ([facility]) Name Value Range Interpretation Code Description Data Marla rce(s) Supporting Document(s) white blood count 5.8 10 4.0-10.0 White Blood Count [facility] ([facility]) hemoglobin 10.9 g/dL 13.5-17.5 Below low normal Hemoglobin [facility] ( [facility]) red blood count 3.88 10 4.30-6.10 Below low normal Red Blood Coun t [facility] ([facility]) hematocrit 34.1 % 42.0-52.0 Below low normal Hematocrit [facility] ( [facility]) mean corpuscular volume 87.9 fL 80.0-96.0 Mean Corpusc ular Volume [facility] ([facility]) mean corpuscular hemoglobin 28.1 pg 27.0-33.0 Mean Cor puscular Hemoglobin [facility] ([facility]) mean corpuscular HGB conc 32.0 g/dL 32.0-36.5 Mean Corpu scular HGB Conc [facility] ([facility]) red cell distribution width 13.4 % 11.5-14.5 Red Cell Distribution Width [facility] ([facility]) platelet count, automated 211 10 150-450 Platelet C ount, Automated [facility] ([facility]) nucleated red blood cell % 0.0 % 0-0 Nucleated Red Blood Cell % [facility] ([facility]) ID Date Data Source [id number] 06/19/2020 05:02:00 AM EST [place] ([facility]) Name Value Range Interpretation Code Description Data Marla rce(s) Supporting Document(s) magnesium level 2.1 mg/dL 1.8-2.4 Magnesium Level [facility] ([facility]) ID Date Data Source [id number] 06/19/2020 05:02:00 AM EST [place] ([facility]) Name Value Range Interpretation Code Description Data Marla rce(s) Supporting Document(s) phosphorus level 2.5 mg/dL 2.5-4.9 Phosphorus Level AT [facility]) ID Date Data Source [id number] 06/19/2020 05:02:00 AM EST [place] ([facility]) Name Value Range Interpretation Code Description Data Marla rce(s) Supporting Document(s) glucose, fasting 116 mg/dL 70-100 Above high normal Glucose, Fas ting [place] ([facility]) creatinine for GFR 0.70 mg/dL 0.70-1.30 Creatinine for GF R [place] ([facility]) blood urea nitrogen 8 mg/dL 7-18 Blood Urea Nitro gen [place] ([facility]) glomerular filtration rate > 60.0 >60 Glomerula r Filtration Rate [place] ([facility]) potassium serum 4.5 mEq/L 3.5-5.1 Potassium Serum [place] ([facility]) sodium level 142 mEq/L 136-145 Sodium Level [place] ([facility]) carbon dioxide level 25 mEq/L 21-32 Carbon Dioxide Level [place] ([facility]) chloride level 109 mEq/L 98-107 Above high normal Chloride Level [place] ([facility]) calcium level 7.5 mg/dL 8.5-10.1 Below low normal Calcium Level AT [facility] ([facility]) anion gap 8 mEq/L 8-16 Anion Gap [place] ([facility]) AST/SGOT 31 U/L 7-37 AST/SGOT [place] ([facility]) alkaline phosphatase 100 U/L 45-117 Alkaline Phosph atase [place] ([facility]) ALT/SGPT 41 U/L 12-78 ALT/SGPT [place] ([facility]) total protein 5.4 gm/dL 6.4-8.2 Below low normal Total Protein AT [facility] ([facility]) bilirubin,total 0.6 mg/dL 0.2-1.0 Bilirubin,total [facility] ([facility]) albumin 2.2 gm/dL 3.2-5.2 Below low normal Albumin [place] ( [facility]) albumin/globulin ratio Albumin/globu mar Ratio [place] ([facility]) ID Date Data Source [id number] 06/19/2020 05:02:00 AM EST [place] ([facility]) Name Value Range Interpretation Code Description Data Marla rce(s) Supporting Document(s) white blood count 5.8 10 4.0-10.0 White Blood Count [place] ([facility]) red blood count 3.88 10 4.30-6.10 Below low normal Red Blood Coun t [place] ([facility]) hemoglobin 10.9 g/dL 13.5-17.5 Below low normal Hemoglobin [place] ( [facility]) mean corpuscular volume 87.9 fL 80.0-96.0 Mean Corpusc ular Volume [place] ([facility]) hematocrit 34.1 % 42.0-52.0 Below low normal Hematocrit [place] ( [facility]) mean corpuscular hemoglobin 28.1 pg 27.0-33.0 Mean Cor puscular Hemoglobin [place] ([facility]) red cell distribution width 13.4 % 11.5-14.5 Red Cell Distribution Width [place] ([facility]) mean corpuscular HGB conc 32.0 g/dL 32.0-36.5 Mean Corpu scular HGB Conc [place] ([facility]) nucleated red blood cell % 0.0 % 0-0 Nucleated Red Blood Cell % [place] ([facility]) platelet count, automated 211 10 150-450 Platelet C ount, Automated [place] ([facility]) ID Date Data Source [id number] 06/19/2020 05:02:00 AM EST [place] ([facility]) Name Value Range Interpretation Code Description Data Marla rce(s) Supporting Document(s) magnesium level 2.1 mg/dL 1.8-2.4 Magnesium Level [facility] ([facility]) ID Date Data Source [id number] 06/19/2020 05:02:00 AM EST [place] ([facility]) Name Value Range Interpretation Code Description Data Marla rce(s) Supporting Document(s) phosphorus level 2.5 mg/dL 2.5-4.9 Phosphorus Level AT [facility]) ID Date Data Source [id number] 06/19/2020 05:02:00 AM EST [place] ([facility]) Name Value Range Interpretation Code Description Data Marla rce(s) Supporting Document(s) glucose, fasting 116 mg/dL 70-100 Above high normal Glucose, Fas ting [place] ([facility]) blood urea nitrogen 8 mg/dL 7-18 Blood Urea Nitro gen [place] ([facility]) creatinine for GFR 0.70 mg/dL 0.70-1.30 Creatinine for GF R [place] ([facility]) glomerular filtration rate > 60.0 >60 Glomerula r Filtration Rate [place] ([facility]) potassium serum 4.5 mEq/L 3.5-5.1 Potassium Serum [facility] ([facility]) sodium level 142 mEq/L 136-145 Sodium Level [place] ([facility]) chloride level 109 mEq/L 98-107 Above high normal Chloride Level [place] ([facility]) carbon dioxide level 25 mEq/L 21-32 Carbon Dioxide Level [place] ([facility]) anion gap 8 mEq/L 8-16 Anion Gap [place] ([facility]) calcium level 7.5 mg/dL 8.5-10.1 Below low normal Calcium Level AT [facility]) AST/SGOT 31 U/L 7-37 AST/SGOT [place] ([facility]) ALT/SGPT 41 U/L 12-78 ALT/SGPT [place] ([facility]) bilirubin,total 0.6 mg/dL 0.2-1.0 Bilirubin,total [facility] ([facility]) alkaline phosphatase 100 U/L 45-117 Alkaline Phosph atase [place] ([facility]) total protein 5.4 gm/dL 6.4-8.2 Below low normal Total Protein AT [facility] ([facility]) albumin 2.2 gm/dL 3.2-5.2 Below low normal Albumin [place] ( [facility]) albumin/globulin ratio Albumin/globu mar Ratio [place] ([facility]) ID Date Data Source [id number] 06/19/2020 05:02:00 AM EST [place] ([facility]) Name Value Range Interpretation Code Description Data Marla rce(s) Supporting Document(s) white blood count 5.8 10 4.0-10.0 White Blood Count [place] ([facility]) red blood count 3.88 10 4.30-6.10 Below low normal Red Blood Coun t [place] ([facility]) hemoglobin 10.9 g/dL 13.5-17.5 Below low normal Hemoglobin [place] ( [facility]) hematocrit 34.1 % 42.0-52.0 Below low normal Hematocrit [place] ( [facility]) mean corpuscular volume 87.9 fL 80.0-96.0 Mean Corpusc ular Volume [place] ([facility]) mean corpuscular hemoglobin 28.1 pg 27.0-33.0 Mean Cor puscular Hemoglobin [place] ([facility]) mean corpuscular HGB conc 32.0 g/dL 32.0-36.5 Mean Corpu scular HGB Conc [place] ([facility]) red cell distribution width 13.4 % 11.5-14.5 Red Cell Distribution Width [place] ([facility]) platelet count, automated 211 10 150-450 Platelet C ount, Automated [place] ([facility]) nucleated red blood cell % 0.0 % 0-0 Nucleated Red Blood Cell % [place] ([facility]) ID Date Data Source [id number] 06/18/2020 10:46:00 AM EST [place] ([facility]) Name Value Range Interpretation Code Description Data Marla rce(s) Supporting Document(s) ID Date Data Source [id number] 06/18/2020 10:46:00 AM EST [place] ([facility]) Name Value Range Interpretation Code Description Data Marla rce(s) Supporting Document(s) ID Date Data Source [id number] 06/18/2020 10:46:00 AM EST [place] ([facility]) Name Value Range Interpretation Code Description Data Marla rce(s) Supporting Document(s) ID Date Data Source [id number] 06/18[facility]2020 [facility] Name Value Range Interpretation Code Description Data Marla rce(s) Supporting Document(s) ID Date Data Source [id number] 06/18/2020 10:46[facility]00 [facility] Name Value Range Interpretation Code Description Data Marla rce(s) Supporting Document(s) ID Date Data Source [id number] 06/18/2020 10:46:00 AM EST [facility] Name Value Range Interpretation Code Description Data Marla rce(s) Supporting Document(s) SARS-CoV-2 (COVID 19) NEGATIVE - SARS-CoV-2 (COVID19) [facility] This lab was ordered by [facility] a nd reported by [facility]. ID Date Data Source [id number] 06/18/2020 05:35:00 [facility] Name Value Range Interpretation Code Description Data Marla rce(s) Supporting Document(s) platelet estimate normal normal Platelet Estimate [facility]) ID Date Data Source [id number] 06/18/2020 05:35:00 [facility] Name Value Range Interpretation Code Description Data Marla rce(s) Supporting Document(s) neutrophils 76 % 28-66 Above high normal Neutrophils [facility] ([facility]) lymphocytes 17 % 16-44 Lymphocytes [place] ([facility]) monocytes 5 % 0-5 Monocytes [place] ([facility]) basophils 1 % 0-1 Basophils [place] ([facility]) atypical lymph 1 % 0-5 Atypical Lymph [place] ([facility]) RBC morphology normal RBC Morphology [place] ([facility]) ID Date Data Source [id number] 06/18/2020 05:35:00 AM EST [place] ([facility]) Name Value Range Interpretation Code Description Data Marla rce(s) Supporting Document(s) white blood count 5.6 10 4.0-10.0 White Blood Count [place] ([facility]) red blood count 3.53 10 4.30-6.10 Below low normal Red Blood Coun t [place] ([facility]) hemoglobin 10.1 g/dL 13.5-17.5 Below low normal Hemoglobin [place] ( [facility]) hematocrit 31.4 % 42.0-52.0 Below low normal Hematocrit [place] ( [facility]) mean corpuscular volume 89.0 fL 80.0-96.0 Mean Corpusc ular Volume [place] ([facility]) mean corpuscular hemoglobin 28.6 pg 27.0-33.0 Mean Cor puscular Hemoglobin [place] ([facility]) mean corpuscular HGB conc 32.2 g/dL 32.0-36.5 Mean Corpu scular HGB Conc [place] ([facility]) platelet count, automated 175 10 150-450 Platelet C ount, Automated [place] ([facility]) red cell distribution width 13.6 % 11.5-14.5 Red Cell Distribution Width [place] ([facility]) nucleated red blood cell % 0.0 % 0-0 Nucleated Red Blood Cell % [place] ([facility]) ID Date Data Source [id number] 06/18/2020 05:35:00 AM EST [place] ([facility]) Name Value Range Interpretation Code Description Data Marla rce(s) Supporting Document(s) lipase 327 U/L 73-393 Lipase [place] ([facility]) ID Date Data Source [id number] 06/18/2020 05:35:00 AM EST [place] ([facility]) Name Value Range Interpretation Code Description Data Marla rce(s) Supporting Document(s) glucose, fasting 82 mg/dL 70-100 Glucose, Fasting AT [facility] ([facility]) blood urea nitrogen 8 mg/dL 7-18 Blood Urea Nitro gen [place] ([facility]) creatinine for GFR 0.76 mg/dL 0.70-1.30 Creatinine for GF R [place] ([facility]) glomerular filtration rate > 60.0 >60 Glomerula r Filtration Rate [place] ([facility]) sodium level 140 mEq/L 136-145 Sodium Level [place] ([facility]) potassium serum 4.0 mEq/L 3.5-5.1 Potassium Serum [facility] ([facility]) chloride level 108 mEq/L 98-107 Above high normal Chloride Level [place] ([facility]) carbon dioxide level 25 mEq/L 21-32 Carbon Dioxide Level [place] ([facility]) anion gap 7 mEq/L 8-16 Below low normal Anion Gap [place] ( [facility]) calcium level 7.4 mg/dL 8.5-10.1 Below low normal Calcium Level AT [facility]) AST/SGOT 33 U/L 7-37 AST/SGOT [place] ([facility]) ALT/SGPT 49 U/L 12-78 ALT/SGPT [place] ([facility]) alkaline phosphatase 98 U/L 45-117 Alkaline Phosph atase [place] ([facility]) bilirubin,total 0.8 mg/dL 0.2-1.0 Bilirubin,total [facility] ([facility]) total protein 5.2 gm/dL 6.4-8.2 Below low normal Total Protein AT [facility]) albumin 2.2 gm/dL 3.2-5.2 Below low normal Albumin [place] ( [facility]) albumin/globulin ratio Albumin/globu mar Ratio [place] ([facility]) ID Date Data Source [id number] 06/18/2020 05:35:00 AM EST [place] ([facility]) Name Value Range Interpretation Code Description Data Marla rce(s) Supporting Document(s) platelet estimate normal normal Platelet Estimate [place] ([facility]) ID Date Data Source [id number] 06/18/2020 05:35:00 AM EST [place] ([facility]) Name Value Range Interpretation Code Description Data Marla rce(s) Supporting Document(s) lymphocytes 17 % 16-44 Lymphocytes [place] ([facility]) neutrophils 76 % 28-66 Above high normal Neutrophils [facility] A ([facility]) monocytes 5 % 0-5 Monocytes [place] ([facility]) basophils 1 % 0-1 Basophils [place] ([facility]) atypical lymph 1 % 0-5 Atypical Lymph [place] ([facility]) RBC morphology normal RBC Morphology [place] ([facility]) ID Date Data Source [id number] 06/18/2020 05:35:00 AM EST [place] ([facility]) Name Value Range Interpretation Code Description Data Marla rce(s) Supporting Document(s) white blood count 5.6 10 4.0-10.0 White Blood Count [place] ([facility]) red blood count 3.53 10 4.30-6.10 Below low normal Red Blood Coun t [place] ([facility]) hemoglobin 10.1 g/dL 13.5-17.5 Below low normal Hemoglobin [place] ( [facility]) hematocrit 31.4 % 42.0-52.0 Below low normal Hematocrit [place] ( [facility]) mean corpuscular volume 89.0 fL 80.0-96.0 Mean Corpusc ular Volume [place] ([facility]) mean corpuscular HGB conc 32.2 g/dL 32.0-36.5 Mean Corpu scular HGB Conc [place] ([facility]) mean corpuscular hemoglobin 28.6 pg 27.0-33.0 Mean Cor puscular Hemoglobin [place] ([facility]) red cell distribution width 13.6 % 11.5-14.5 Red Cell Distribution Width [facility] ([facility]) platelet count, automated 175 10 150-450 Platelet C ount, Automated [place] ([facility]) nucleated red blood cell % 0.0 % 0-0 Nucleated Red Blood Cell % [place] ([facility]) ID Date Data Source [id number] 06/18/2020 05:35:00 AM EST [place] ([facility]) Name Value Range Interpretation Code Description Data Marla rce(s) Supporting Document(s) lipase 327 U/L 73-393 Lipase [place] ([facility]) ID Date Data Source [id number] 06/18/2020 05:35:00 AM EST [facility]) Name Value Range Interpretation Code Description Data Marla rce(s) Supporting Document(s) glucose, fasting 82 mg/dL 70-100 Glucose, Fasting AT [facility]) blood urea nitrogen 8 mg/dL 7-18 Blood Urea Nitro gen [place] ([facility]) creatinine for GFR 0.76 mg/dL 0.70-1.30 Creatinine for GF R [place] ([facility]) sodium level 140 mEq/L 136-145 Sodium Level [facility] ([facility]) glomerular filtration rate > 60.0 >60 Glomerula r Filtration Rate [place] ([facility]) potassium serum 4.0 mEq/L 3.5-5.1 Potassium Serum ATH NA [facility]) chloride level 108 mEq/L 98-107 Above high normal Chloride Level [place] ([facility]) carbon dioxide level 25 mEq/L 21-32 Carbon Dioxide Level [place] ([facility]) anion gap 7 mEq/L 8-16 Below low normal Anion Gap [place] ( [facility]) calcium level 7.4 mg/dL 8.5-10.1 Below low normal Calcium Level AT [facility] ([facility]) AST/SGOT 33 U/L 7-37 AST/SGOT [place] ([facility]) ALT/SGPT 49 U/L 12-78 ALT/SGPT [place] ([facility]) bilirubin,total 0.8 mg/dL 0.2-1.0 Bilirubin,total [facility] ([facility]) alkaline phosphatase 98 U/L 45-117 Alkaline Phosph atase [place] ([facility]) total protein 5.2 gm/dL 6.4-8.2 Below low normal Total Protein AT [facility] ([facility]) albumin 2.2 gm/dL 3.2-5.2 Below low normal Albumin [place] ( [facility]) albumin/globulin ratio Albumin/globu mar Ratio [place] ([facility]) ID Date Data Source [id number] 06/18/2020 05:35:00 AM EST [place] ([facility]) Name Value Range Interpretation Code Description Data Marla rce(s) Supporting Document(s) platelet estimate normal normal Platelet Estimate [place] ([facility]) ID Date Data Source [id number] 06/18/2020 05:35:00 AM EST [place] ([facility]) Name Value Range Interpretation Code Description Data Marla rce(s) Supporting Document(s) neutrophils 76 % 28-66 Above high normal Neutrophils [facility] A ([facility]) lymphocytes 17 % 16-44 Lymphocytes [place] ([facility]) monocytes 5 % 0-5 Monocytes [place] ([facility]) basophils 1 % 0-1 Basophils [place] ([facility]) atypical lymph 1 % 0-5 Atypical Lymph [place] ([facility]) RBC morphology normal RBC Morphology [place] ([facility]) ID Date Data Source [id number] 06/18/2020 05:35:00 AM EST [place] ([facility]) Name Value Range Interpretation Code Description Data Marla rce(s) Supporting Document(s) white blood count 5.6 10 4.0-10.0 White Blood Count [place] ([facility]) red blood count 3.53 10 4.30-6.10 Below low normal Red Blood Coun t [place] ([facility]) hematocrit 31.4 % 42.0-52.0 Below low normal Hematocrit [place] ( [facility]) hemoglobin 10.1 g/dL 13.5-17.5 Below low normal Hemoglobin [place] ( [facility]) mean corpuscular hemoglobin 28.6 pg 27.0-33.0 Mean Cor puscular Hemoglobin [place] ([facility]) mean corpuscular volume 89.0 fL 80.0-96.0 Mean Corpusc ular Volume [place] ([facility]) mean corpuscular HGB conc 32.2 g/dL 32.0-36.5 Mean Corpu scular HGB Conc [place] ([facility]) platelet count, automated 175 10 150-450 Platelet C ount, Automated [place] ([facility]) red cell distribution width 13.6 % 11.5-14.5 Red Cell Distribution Width [place] ([facility]) nucleated red blood cell % 0.0 % 0-0 Nucleated Red Blood Cell % [place] ([facility]) ID Date Data Source [id number] 06/18/2020 05:35:00 AM EST [place] ([facility]) Name Value Range Interpretation Code Description Data Marla rce(s) Supporting Document(s) lipase 327 U/L 73-393 Lipase [place] ([facility]) ID Date Data Source [id number] 06/18/2020 05:35:00 AM EST [place] ([facility]) Name Value Range Interpretation Code Description Data Marla rce(s) Supporting Document(s) glucose, fasting 82 mg/dL 70-100 Glucose, Fasting AT [facility] ([facility]) blood urea nitrogen 8 mg/dL 7-18 Blood Urea Nitro gen [place] ([facility]) creatinine for GFR 0.76 mg/dL 0.70-1.30 Creatinine for GF R [facility] ([facility]) glomerular filtration rate > 60.0 >60 Glomerula r Filtration Rate [facility] ([facility]) sodium level 140 mEq/L 136-145 Sodium Level [facility] ([facility]) potassium serum 4.0 mEq/L 3.5-5.1 Potassium Serum [facility] ([facility]) carbon dioxide level 25 mEq/L 21-32 Carbon Dioxide Level [facility] ([facility]) chloride level 108 mEq/L 98-107 Above high normal Chloride Level [facility] ([facility]) calcium level 7.4 mg/dL 8.5-10.1 Below low normal Calcium Level AT [facility] ([facility]) anion gap 7 mEq/L 8-16 Below low normal Anion Gap [facility] ( [facility]) AST/SGOT 33 U/L 7-37 AST/SGOT [place] ([facility]) ALT/SGPT 49 U/L 12-78 ALT/SGPT [place] ([facility]) alkaline phosphatase 98 U/L 45-117 Alkaline Phosph atase [facility] ([facility]) total protein 5.2 gm/dL 6.4-8.2 Below low normal Total Protein AT [facility]) bilirubin,total 0.8 mg/dL 0.2-1.0 Bilirubin,total [facility] ([facility]) albumin 2.2 gm/dL 3.2-5.2 Below low normal Albumin [place] ( [facility]) albumin/globulin ratio Albumin/globu mar Ratio [facility] ([facility]) ID Date Data Source [id number] 06/18/2020 05:35:00 AM EST [place] ([facility]) Name Value Range Interpretation Code Description Data Marla rce(s) Supporting Document(s) platelet estimate normal normal Platelet Estimate [facility] ([facility]) ID Date Data Source [id number] 06/18/2020 05:35:00 AM EST [place] ([facility]) Name Value Range Interpretation Code Description Data Marla rce(s) Supporting Document(s) lymphocytes 17 % 16-44 Lymphocytes [facility] ([facility]) neutrophils 76 % 28-66 Above high normal Neutrophils [facility]TH[facility] A ([facility]) monocytes 5 % 0-5 Monocytes [place] ([facility]) basophils 1 % 0-1 Basophils [facility] ([facility]) atypical lymph 1 % 0-5 Atypical Lymph [facility] ([facility]) RBC morphology normal RBC Morphology [facility] ([facility]) ID Date Data Source [id number] 06/18/2020 05:35:00 AM EST [place] ([facility]) Name Value Range Interpretation Code Description Data Marla rce(s) Supporting Document(s) white blood count 5.6 10 4.0-10.0 White Blood Count [facility] ([facility]) red blood count 3.53 10 4.30-6.10 Below low normal Red Blood Coun t [facility] ([facility]) hemoglobin 10.1 g/dL 13.5-17.5 Below low normal Hemoglobin [place] ( [facility]) mean corpuscular volume 89.0 fL 80.0-96.0 Mean Corpusc ular Volume [facility] ([facility]) hematocrit 31.4 % 42.0-52.0 Below low normal Hematocrit [facility] ( [facility]) mean corpuscular hemoglobin 28.6 pg 27.0-33.0 Mean Cor puscular Hemoglobin [facility] ([facility]) mean corpuscular HGB conc 32.2 g/dL 32.0-36.5 Mean Corpu scular HGB Conc [facility] ([facility]) red cell distribution width 13.6 % 11.5-14.5 Red Cell Distribution Width [facility] ([facility]) nucleated red blood cell % 0.0 % 0-0 Nucleated Red Blood Cell % [facility] ([facility]) platelet count, automated 175 10 150-450 Platelet C ount, Automated [place] ([facility]) ID Date Data Source [id number] 06/18/2020 05:35:00 AM EST [place] ([facility]) Name Value Range Interpretation Code Description Data Marla rce(s) Supporting Document(s) lipase 327 U/L 73-393 Lipase [place] [facility] [facility] ID Date Data Source [id number] 06/18/2020 05:35:00 AM EST [place] ([facility]) Name Value Range Interpretation Code Description Data Marla rce(s) Supporting Document(s) glucose, fasting 82 mg/dL 70-100 Glucose, Fasting AT [facility]) blood urea nitrogen 8 mg/dL 7-18 Blood Urea Nitro gen [place] ([facility]) creatinine for GFR 0.76 mg/dL 0.70-1.30 Creatinine for GF R [place] ([facility]) glomerular filtration rate > 60.0 >60 Glomerula r Filtration Rate [place] ([facility]) sodium level 140 mEq/L 136-145 Sodium Level [place] ([facility]) potassium serum 4.0 mEq/L 3.5-5.1 Potassium [facility]) chloride level 108 mEq/L 98-107 Above high normal Chloride Level [place] ([facility]) carbon dioxide level 25 mEq/L 21-32 Carbon Dioxide Level [place] ([facility]) calcium level 7.4 mg/dL 8.5-10.1 Below low normal Calcium Level AT [facility]) anion gap 7 mEq/L 8-16 Below low normal Anion Gap [facility] ( [facility]) ALT/SGPT 49 U/L 12-78 ALT/SGPT [facility] ([facility]) AST/SGOT 33 U/L 7-37 AST/SGOT [place] ([facility]) alkaline phosphatase 98 U/L 45-117 Alkaline Phosph atase [facility] ([facility]) bilirubin,total 0.8 mg/dL 0.2-1.0 Bilirubin,total [facility] ([facility]) total protein 5.2 gm/dL 6.4-8.2 Below low normal Total Protein AT [place] ([facility]) albumin 2.2 gm/dL 3.2-5.2 Below low normal Albumin [place] ( [facility]) albumin/globulin ratio Albumin/globu mar Ratio [facility] ([facility]) ID Date Data Source [id number] 06/18/2020 05:35:00 AM EST [place] ([facility]) Name Value Range Interpretation Code Description Data Marla rce(s) Supporting Document(s) platelet estimate normal normal Platelet Estimate [place] ([facility]) ID Date Data Source [id number] 06/18/2020 05:35:00 AM EST [place] ([facility]) Name Value Range Interpretation Code Description Data Marla rce(s) Supporting Document(s) neutrophils 76 % 28-66 Above high normal Neutrophils [facility] A ([facility]) monocytes 5 % 0-5 Monocytes [place] ([facility]) lymphocytes 17 % 16-44 Lymphocytes [facility] ([facility]) basophils 1 % 0-1 Basophils [place] ([facility]) atypical lymph 1 % 0-5 Atypical Lymph [facility] ([facility]) RBC morphology normal RBC Morphology [facility] ([facility]) ID Date Data Source [id number] 06/18/2020 05:35:00 AM EST [place] ([facility]) Name Value Range Interpretation Code Description Data Marla rce(s) Supporting Document(s) white blood count 5.6 10 4.0-10.0 White Blood Count [facility] ([facility]) red blood count 3.53 10 4.30-6.10 Below low normal Red Blood Coun t [facility] ([facility]) hemoglobin 10.1 g/dL 13.5-17.5 Below low normal Hemoglobin [place] ( [facility]) hematocrit 31.4 % 42.0-52.0 Below low normal Hematocrit [place] ( [facility]) mean corpuscular volume 89.0 fL 80.0-96.0 Mean Corpusc ular Volume [facility] ([facility]) mean corpuscular hemoglobin 28.6 pg 27.0-33.0 Mean Cor puscular Hemoglobin [place] ([facility]) red cell distribution width 13.6 % 11.5-14.5 Red Cell Distribution Width [place] ([facility]) mean corpuscular HGB conc 32.2 g/dL 32.0-36.5 Mean Corpu scular HGB Conc [facility] ([facility]) nucleated red blood cell % 0.0 % 0-0 Nucleated Red Blood Cell % [place] ([facility]) platelet count, automated 175 10 150-450 Platelet C ount, Automated [facility]) ID Date Data Source [id number] 06/18/2020 05:35:00 AM EST [place] ([facility]) Name Value Range Interpretation Code Description Data Marla rce(s) Supporting Document(s) lipase 327 U/L 73-393 Lipase [place] ([facility]) ID Date Data Source [id number] 06/18/2020 05:35:00 AM EST [facility]) Name Value Range Interpretation Code Description Data Marla rce(s) Supporting Document(s) glucose, fasting 82 mg/dL 70-100 Glucose, Fasting AT [facility]) blood urea nitrogen 8 mg/dL 7-18 Blood Urea Nitro gen [place] ([facility]) creatinine for GFR 0.76 mg/dL 0.70-1.30 Creatinine for GF R [place] ([facility]) glomerular filtration rate > 60.0 >60 Glomerula r Filtration Rate [place] ([facility]) sodium level 140 mEq/L 136-145 Sodium Level [facility] ([facility]) potassium serum 4.0 mEq/L 3.5-5.1 Potassium Serum A[facility] NA ([facility]) chloride level 108 mEq/L 98-107 Above high normal Chloride Level [facility] ([facility]) carbon dioxide level 25 mEq/L 21-32 Carbon Dioxide Level [facility] ([facility]) anion gap 7 mEq/L 8-16 Below low normal Anion Gap [facility] ( [facility]) AST/SGOT 33 U/L 7-37 AST/SGOT [facility] ([facility]) calcium level 7.4 mg/dL 8.5-10.1 Below low normal Calcium Level AT [facility] ([facility]) ALT/SGPT 49 U/L 12-78 ALT/SGPT [place] ([facility]) alkaline phosphatase 98 U/L 45-117 Alkaline Phosph atase [facility] ([facility]) bilirubin,total 0.8 mg/dL 0.2-1.0 Bilirubin,total [facility] ([facility]) total protein 5.2 gm/dL 6.4-8.2 Below low normal Total Protein AT [facility] ([facility]) albumin 2.2 gm/dL 3.2-5.2 Below low normal Albumin [place] ( [facility]) albumin/globulin ratio Albumin/globu mar Ratio [place] ([facility]) ID Date Data Source [id number] 06/17/2020 07:47:00 AM EST [place] ([facility]) Name Value Range Interpretation Code Description Data Marla rce(s) Supporting Document(s) magnesium level 1.7 mg/dL 1.8-2.4 Below low normal Magnesium Leve l [place] ([facility]) ID Date Data Source [id number] 06/17/2020 07:47:00 AM EST [place] ([facility]) Name Value Range Interpretation Code Description Data Marla rce(s) Supporting Document(s) phosphorus level 2.8 mg/dL 2.5-4.[address] [facility] ([facility]) ID Date Data Source [id number] 06/17/2020 07:47:00 AM EST [facility]) Name Value Range Interpretation Code Description Data Marla rce(s) Supporting Document(s) glucose, fasting 99 mg/dL 70-100 Glucose, Fasting AT [facility] ([facility]) creatinine for GFR 1.12 mg/dL 0.70-1.30 Creatinine for GF R [place] ([facility]) blood urea nitrogen 13 mg/dL 7-18 Blood Urea Nitro gen [place] ([facility]) sodium level 139 mEq/L 136-145 Sodium Level [facility] ([facility]) glomerular filtration rate > 60.0 >60 Glomerula r Filtration Rate [place] ([facility]) potassium serum 4.0 mEq/L 3.5-5.1 Potassium Serum [facility] ([facility]) carbon dioxide level 25 mEq/L 21-32 Carbon Dioxide Level [place] ([facility]) chloride level 107 mEq/L 98-107 Chloride Level [place] ([facility]) anion gap 7 mEq/L 8-16 Below low normal Anion Gap [place] ( [facility]) AST/SGOT 51 U/L 7-37 Above high normal AST/SGOT [place] ([facility]) calcium level 7.2 mg/dL 8.5-10.1 Below low normal Calcium Level AT [facility]) ALT/SGPT 63 U/L 12-78 ALT/SGPT [place] ([facility]) alkaline phosphatase 98 U/L 45-117 Alkaline Phosph atase [place] ([facility]) bilirubin,total 0.9 mg/dL 0.2-1.0 Bilirubin,total [facility]) albumin 2.3 gm/dL 3.2-5.2 Below low normal Albumin [place] ( [facility]) total protein 5.3 gm/dL 6.4-8.2 Below low normal Total Protein AT [facility]) albumin/globulin ratio Albumin/globu mar Ratio [place] ([facility]) ID Date Data Source [id number] 06/17/2020 07:47:00 AM EST [facility]) Name Value Range Interpretation Code Description Data Marla rce(s) Supporting Document(s) white blood count 11.3 10 4.0-10.0 Above high normal White Blood Count [facility] ([facility]) red blood count 3.88 10 4.30-6.10 Below low normal Red Blood Coun t [place] ([facility]) hemoglobin 11.0 g/dL 13.5-17.5 Below low normal Hemoglobin [place] ( [facility]) mean corpuscular volume 89.2 fL 80.0-96.0 Mean Corpusc ular Volume [facility] ([facility]) hematocrit 34.6 % 42.0-52.0 Below low normal Hematocrit [place] ( [facility]) mean corpuscular hemoglobin 28.4 pg 27.0-33.0 Mean Cor puscular Hemoglobin [place] ([facility]) mean corpuscular HGB conc 31.8 g/dL 32.0-36.5 Below low darrel l Mean Corpuscular HGB Conc [place] ([facility]) red cell distribution width 13.7 % 11.5-14.5 Red Cell Distribution Width [place] ([facility]) platelet count, automated 256 10 150-450 Platelet C ount, Automated [place] ([facility]) nucleated red blood cell % 0.0 % 0-0 Nucleated Red Blood Cell % [place] ([facility]) ID Date Data Source [id number] 06/17/2020 07:47:00 AM EST [facility]) Name Value Range Interpretation Code Description Data Marla rce(s) Supporting Document(s) magnesium level 1.7 mg/dL 1.8-2.4 Below low normal Magnesium Leve l [place] ([facility]) ID Date Data Source [id number] 06/17/2020 07:47:00 AM EST [place] ([facility]) Name Value Range Interpretation Code Description Data Marla rce(s) Supporting Document(s) phosphorus level 2.8 mg/dL 2.5-4.9 Phosphorus Level AT [facility]) ID Date Data Source [id number] 06/17/2020 07:47:00 AM EST [place] ([facility]) Name Value Range Interpretation Code Description Data Marla rce(s) Supporting Document(s) glucose, fasting 99 mg/dL 70-100 Glucose, Fasting AT [facility]) blood urea nitrogen 13 mg/dL 7-18 Blood Urea Nitro gen [place] ([facility]) creatinine for GFR 1.12 mg/dL 0.70-1.30 Creatinine for GF R [place] ([facility]) glomerular filtration rate > 60.0 >60 Glomerula r Filtration Rate [place] ([facility]) sodium level 139 mEq/L 136-145 Sodium Level [place] ([facility]) potassium serum 4.0 mEq/L 3.5-5.1 Potassium Serum [facility] ([facility]) chloride level 107 mEq/L 98-107 Chloride Level [place] ([facility]) carbon dioxide level 25 mEq/L 21-32 Carbon Dioxide Level [place] ([facility]) anion gap 7 mEq/L 8-16 Below low normal Anion Gap [place] ( [facility]) calcium level 7.2 mg/dL 8.5-10.1 Below low normal Calcium Level AT [facility]) AST/SGOT 51 U/L 7-37 Above high normal AST/SGOT [place] ([facility]) ALT/SGPT 63 U/L 12-78 ALT/SGPT [place] ([facility]) alkaline phosphatase 98 U/L 45-117 Alkaline Phosph atase [facility] ([facility]) bilirubin,total 0.9 mg/dL 0.2-1.0 Bilirubin,total [facility] ([facility]) total protein 5.3 gm/dL 6.4-8.2 Below low normal Total Protein AT [facility]) albumin 2.3 gm/dL 3.2-5.2 Below low normal Albumin [place] ( [facility]) albumin/globulin ratio Albumin/globu mar Ratio [facility]) ID Date Data Source [id number] 06/17/2020 07:47:00 AM EST [place] ([facility]) Name Value Range Interpretation Code Description Data Marla rce(s) Supporting Document(s) white blood count 11.3 10 4.0-10.0 Above high normal White Blood Count [facility] ([facility]) red blood count 3.88 10 4.30-6.10 Below low normal Red Blood Coun t [place] ([facility]) hemoglobin 11.0 g/dL 13.5-17.5 Below low normal Hemoglobin [place] ( [facility]) hematocrit 34.6 % 42.0-52.0 Below low normal Hematocrit [place] ( [facility]) mean corpuscular volume 89.2 fL 80.0-96.0 Mean Corpusc ular Volume [place] ([facility]) mean corpuscular hemoglobin 28.4 pg 27.0-33.0 Mean Cor puscular Hemoglobin [place] ([facility]) mean corpuscular HGB conc 31.8 g/dL 32.0-36.5 Below low darrel l Mean Corpuscular HGB Conc [facility] ([facility]) red cell distribution width 13.7 % 11.5-14.5 Red Cell Distribution Width [place] ([facility]) platelet count, automated 256 10 150-450 Platelet C ount, Automated [place] ([facility]) nucleated red blood cell % 0.0 % 0-0 Nucleated Red Blood Cell % [place] ([facility]) ID Date Data Source [id number] 06/17/2020 07:47:00 AM EST [place] ([facility]) Name Value Range Interpretation Code Description Data Marla rce(s) Supporting Document(s) magnesium level 1.7 mg/dL 1.8-2.4 Below low normal Magnesium Leve l [place] ([facility]) ID Date Data Source [id number] 06/17/2020 07:47:00 AM EST [place] ([facility]) Name Value Range Interpretation Code Description Data Marla rce(s) Supporting Document(s) phosphorus level 2.8 mg/dL 2.5-4.9 Phosphorus Level AT [facility]) ID Date Data Source [id number] 06/17/2020 07:47:00 AM EST [facility]) Name Value Range Interpretation Code Description Data Marla rce(s) Supporting Document(s) glucose, fasting 99 mg/dL 70-100 Glucose, Fasting AT [facility]) blood urea nitrogen 13 mg/dL 7-18 Blood Urea Nitro gen [place] ([facility]) creatinine for GFR 1.12 mg/dL 0.70-1.30 Creatinine for GF R [place] ([facility]) glomerular filtration rate > 60.0 >60 Glomerula r Filtration Rate [place] ([facility]) sodium level 139 mEq/L 136-145 Sodium Level [place] ([facility]) chloride level 107 mEq/L 98-107 Chloride Level [place] ([facility]) potassium serum 4.0 mEq/L 3.5-5.1 Potassium Serum [facility]) carbon dioxide level 25 mEq/L 21-32 Carbon Dioxide Level [facility]) anion gap 7 mEq/L 8-16 Below low normal Anion Gap [place] ( [facility]) calcium level 7.2 mg/dL 8.5-10.1 Below low normal Calcium Level AT [facility]) AST/SGOT 51 U/L 7-37 Above high normal AST/SGOT [facility]) ALT/SGPT 63 U/L 12-78 ALT/SGPT [place] ([facility]) bilirubin,total 0.9 mg/dL 0.2-1.0 [facility] alkaline phosphatase 98 U/L 45-117 Alkaline Phosph atase [facility]) total protein 5.3 gm/dL 6.4-8.2 Below low normal Total Protein AT [facility]) albumin 2.3 gm/dL 3.2-5.2 Below low normal Albumin [place] ( [facility]) albumin/globulin ratio Albumin/globu mar Ratio [place] ([facility]) ID Date Data Source [id number] 06/17/2020 07:47:00 AM EST [place] ([facility]) Name Value Range Interpretation Code Description Data Marla rce(s) Supporting Document(s) white blood count 11.3 10 4.0-10.0 Above high normal White Blood Count [facility] ([facility]) red blood count 3.88 10 4.30-6.10 Below low normal Red Blood Coun t [place] ([facility]) hemoglobin 11.0 g/dL 13.5-17.5 Below low normal Hemoglobin [place] ( [facility]) hematocrit 34.6 % 42.0-52.0 Below low normal Hematocrit [place] ( [facility]) mean corpuscular hemoglobin 28.4 pg 27.0-33.0 Mean Cor puscular Hemoglobin [place] ([facility]) mean corpuscular volume 89.2 fL 80.0-96.0 Mean Corpusc ular Volume [place] ([facility]) red cell distribution width 13.7 % 11.5-14.5 Red Cell Distribution Width [place] ([facility]) mean corpuscular HGB conc 31.8 g/dL 32.0-36.5 Below low darrel l Mean Corpuscular HGB Conc [place] ([facility]) platelet count, automated 256 10 150-450 Platelet C ount, Automated [place] ([facility]) nucleated red blood cell % 0.0 % 0-0 Nucleated Red Blood Cell % [place] ([facility]) ID Date Data Source [id number] 06/17/2020 07:47:00 AM EST [place] ([facility]) Name Value Range Interpretation Code Description Data Marla rce(s) Supporting Document(s) magnesium level 1.7 mg/dL 1.8-2.4 Below low normal Magnesium Leve l [place] ([facility]) ID Date Data Source [id number] 06/17/2020 07:47:00 AM EST [place] ([facility]) Name Value Range Interpretation Code Description Data Marla rce(s) Supporting Document(s) phosphorus level 2.8 mg/dL 2.5-4.9 Phosphorus Level AT [facility]) ID Date Data Source [id number] 06/17/2020 07:47:00 AM EST [place] ([facility]) Name Value Range Interpretation Code Description Data Marla rce(s) Supporting Document(s) glucose, fasting 99 mg/dL 70-100 Glucose, Fasting AT [facility] ([facility]) blood urea nitrogen 13 mg/dL 7-18 Blood Urea Nitro gen [place] ([facility]) creatinine for GFR 1.12 mg/dL 0.70-1.30 Creatinine for GF R [place] ([facility]) glomerular filtration rate > 60.0 >60 Glomerula r Filtration Rate [place] ([facility]) potassium serum 4.0 mEq/L 3.5-5.1 Potassium Serum [facility] ([facility]) sodium level 139 mEq/L 136-145 Sodium Level [place] ([facility]) chloride level 107 mEq/L 98-107 Chloride Level [place] ([facility]) anion gap 7 mEq/L 8-16 Below low normal Anion Gap [place] ( [facility]) carbon dioxide level 25 mEq/L 21-32 Carbon Dioxide Level [place] ([facility]) AST/SGOT 51 U/L 7-37 Above high normal AST/SGOT [place] ([facility]) calcium level 7.2 mg/dL 8.5-10.1 Below low normal Calcium Level AT [facility] ([facility]) alkaline phosphatase 98 U/L 45-117 Alkaline Phosph atase [facility] ([facility]) ALT/SGPT 63 U/L 12-78 ALT/SGPT [place] ([facility]) bilirubin,total 0.9 mg/dL 0.2-1.0 Bilirubin,total [facility] ([facility]) total protein 5.3 gm/dL 6.4-8.2 Below low normal Total Protein AT [facility] ([facility]) albumin 2.3 gm/dL 3.2-5.2 Below low normal Albumin [place] ( [facility]) albumin/globulin ratio Albumin/globu mar Ratio [place] ([facility]) ID Date Data Source [id number] 06/17/2020 07:47:00 AM EST [place] ([facility]) Name Value Range Interpretation Code Description Data Marla rce(s) Supporting Document(s) white blood count 11.3 10 4.0-10.0 Above high normal White Blood Count [place] ([facility]) red blood count 3.88 10 4.30-6.10 Below low normal Red Blood Coun t [place] ([facility]) hematocrit 34.6 % 42.0-52.0 Below low normal Hematocrit [place] ( [facility]) hemoglobin 11.0 g/dL 13.5-17.5 Below low normal Hemoglobin [facility] ( [facility]) mean corpuscular volume 89.2 fL 80.0-96.0 Mean Corpusc ular Volume [facility] ([facility]) mean corpuscular hemoglobin 28.4 pg 27.0-33.0 Mean Cor puscular Hemoglobin [facility] ([facility]) red cell distribution width 13.7 % 11.5-14.5 Red Cell Distribution Width [facility] ([facility]) mean corpuscular HGB conc 31.8 g/dL 32.0-36.5 Below low darrel l Mean Corpuscular HGB Conc [facility] ([facility]) nucleated red blood cell % 0.0 % 0-0 Nucleated Red Blood Cell % [facility] ([facility]) platelet count, automated 256 10 150-450 Platelet C ount, Automated [place] ([facility]) ID Date Data Source [id number] 06/17/2020 07:47:00 AM EST [place] ([facility]) Name Value Range Interpretation Code Description Data Marla rce(s) Supporting Document(s) magnesium level 1.7 mg/dL 1.8-2.4 Below low normal Magnesium Leve l [place] ([facility]) ID Date Data Source [id number] 06/17/2020 07:47:00 AM EST [place] ([facility]) Name Value Range Interpretation Code Description Data Marla rce(s) Supporting Document(s) phosphorus level 2.8 mg/dL 2.5-4.9 Phosphorus Level AT [facility]) ID Date Data Source [id number] 06/17/2020 07:47:00 AM EST [place] ([facility]) Name Value Range Interpretation Code Description Data Marla rce(s) Supporting Document(s) glucose, fasting 99 mg/dL 70-100 Glucose, Fasting AT [facility]) blood urea nitrogen 13 mg/dL 7-18 Blood Urea Nitro gen [place] ([facility]) creatinine for GFR 1.12 mg/dL 0.70-1.30 Creatinine for GF R [place] ([facility]) glomerular filtration rate > 60.0 >60 Glomerula r Filtration Rate [place] ([facility]) sodium level 139 mEq/L 136-145 Sodium Level [facility] ([facility]) potassium serum 4.0 mEq/L 3.5-5.1 Potassium Serum [facility] ([facility]) chloride level 107 mEq/L 98-107 Chloride Level [place] ([facility]) carbon dioxide level 25 mEq/L 21-32 Carbon Dioxide Level [facility] ([facility]) anion gap 7 mEq/L 8-16 Below low normal Anion Gap [place] ( [facility]) calcium level 7.2 mg/dL 8.5-10.1 Below low normal Calcium Level AT [facility]) AST/SGOT 51 U/L 7-37 Above high normal AST/SGOT [place] ([facility]) ALT/SGPT 63 U/L 12-78 ALT/SGPT [facility] ([facility]) bilirubin,total 0.9 mg/dL 0.2-1.0 Bilirubin,total ATHE ([facility]) alkaline phosphatase 98 U/L 45-117 Alkaline Phosph atase [facility] ([facility]) total protein 5.3 gm/dL 6.4-8.2 Below low normal Total Protein AT GLENYS ([facility]) albumin 2.3 gm/dL 3.2-5.2 Below low normal Albumin [facility] ( [facility]) albumin/globulin ratio Albumin/globu mar Ratio [facility] ([facility]) ID Date Data Source [id number] 06/17/2020 07:47:00 AM EST [facility] ([facility]) Name Value Range Interpretation Code Description Data Marla rce(s) Supporting Document(s) white blood count 11.3 10 4.0-10.0 Above high normal White Blood Count [facility] ([facility]) red blood count 3.88 10 4.30-6.10 Below low normal Red Blood Coun t [place] ([facility]) hematocrit 34.6 % 42.0-52.0 Below low normal Hematocrit [facility] ( [facility]) hemoglobin 11.0 g/dL 13.5-17.5 Below low normal Hemoglobin [facility] ( [facility]) mean corpuscular hemoglobin 28.4 pg 27.0-33.0 Mean Cor puscular Hemoglobin [facility] ([facility]) mean corpuscular volume 89.2 fL 80.0-96.0 Mean Corpusc ular Volume [facility] ([facility]) red cell distribution width 13.7 % 11.5-14.5 Red Cell Distribution Width [facility] ([facility]) mean corpuscular HGB conc 31.8 g/dL 32.0-36.5 Below low darrel l Mean Corpuscular HGB Conc [facility] ([facility]) platelet count, automated 256 10 150-450 Platelet C ount, Automated [facility] ([facility]) nucleated red blood cell % 0.0 % 0-0 Nucleated Red Blood Cell % [facility] ([facility]) ID Date Data Source [id number] 06/16/2020 01:47:00 PM EST G[facility] ([facility]) Name Value Range Interpretation Code Description Data Marla rce(s) Supporting Document(s) lipase 450 U/L 73-393 Above high normal Lipase [facility] ([facility]) ID Date Data Source [id number] 06/16/2020 01:47:00 PM EST [facility] ([facility]) Name Value Range Interpretation Code Description Data Marla rce(s) Supporting Document(s) glucose, fasting 112 mg/dL 70-100 Above high normal Glucose, Fas ting [facility] ([facility]) blood urea nitrogen 8 mg/dL 7-18 Blood Urea Nitro gen [facility] ([facility]) creatinine for GFR 1.32 mg/dL 0.70-1.30 Above high normal Creatinine for GFR [facility] ([facility]) glomerular filtration rate > 60.0 >60 Glomerula r Filtration Rate [place] ([facility]) potassium serum 4.0 mEq/L 3.5-5.1 Potassium Serum ATHE NA ([facility]) sodium level 136 mEq/L 136-145 Sodium Level [facility] ([facility]) carbon dioxide level 27 mEq/L 21-32 Carbon Dioxide Level [facility] ([facility]) chloride level 102 mEq/L 98-107 Chloride Level [place] ([facility]) anion gap 7 mEq/L 8-16 Below low normal Anion Gap [facility] ( [facility]) calcium level 8.9 mg/dL 8.5-10.1 Calcium Level [place] ( [facility]) ID Date Data Source [id number] 06/16/2020 01:47:00 PM EST [facility] ([facility]) Name Value Range Interpretation Code Description Data Marla rce(s) Supporting Document(s) AST/SGOT 51 U/L 7-37 Above high normal AST/SGOT [facility] ([facility]) alkaline phosphatase 116 U/L 45-117 Alkaline Phosph atase [facility] ([facility]) ALT/SGPT 74 U/L 12-78 ALT/SGPT [facility] ([facility]) bilirubin,direct 0.8 mg/dL 0.0-0.2 Above high normal Bilirubin,di rect [facility] ([facility]) bilirubin,total 1.1 mg/dL 0.2-1.0 Above high normal Bilirubin,tot al [facility] ([facility]) albumin 3.1 gm/dL 3.2-5.2 Below low normal Albumin [facility] ( [facility]) total protein 6.7 gm/dL 6.4-8.2 Total Protein [facility] ( [facility]) albumin/globulin ratio Albumin/globu mar Ratio [facility] ([facility]) ID Date Data Source [id number] 06/16/2020 01:47:00 PM EST [facility] ([facility]) Name Value Range Interpretation Code Description Data Marla rce(s) Supporting Document(s) prothrombin time 15.5 seconds 12.5-14.3 Above high normal Prothrombi n Time [facility] ([facility]) INR Inr [facility] ([facility]) ID Date Data Source [id number] 06/16/2020 01:47:00 PM EST [facility] ([facility]) Name Value Range Interpretation Code Description Data Marla rce(s) Supporting Document(s) white blood count 18.6 10 4.0-10.0 Above high normal White Blood Count [facility] ([facility]) hemoglobin 12.9 g/dL 13.5-17.5 Below low normal Hemoglobin [facility] ( [facility]) red blood count 4.43 10 4.30-6.10 Red Blood Count ATHE NA ([facility]) mean corpuscular volume 87.8 fL 80.0-96.0 Mean Corpusc ular Volume [facility] ([facility]) hematocrit 38.9 % 42.0-52.0 Below low normal Hematocrit [facility] ( [facility]) mean corpuscular hemoglobin 29.1 pg 27.0-33.0 Mean Cor puscular Hemoglobin [facility] ([facility]) mean corpuscular HGB conc 33.2 g/dL 32.0-36.5 Mean Corpu scular HGB Conc [facility] ([facility]) red cell distribution width 13.3 % 11.5-14.5 Red Cell Distribution Width [facility] ([facility]) neutrophils % 93.0 % 36.0-66.0 Above high normal Neutrophils % A THENA ([facility]) platelet count, automated 347 10 150-450 Platelet C ount, Automated [facility] ([facility]) lymph % 1.7 % 24.0-44.0 Below low normal Lymph % [facility] ( [facility]) mono % 4.0 % 2.0-8.0 Faulk % [facility] ([facility]) baso % 0.2 % 0.0-1.0 Baso % [facility] ([facility]) eos % 0.0 % 0.0-3.0 Eos % [facility] ([facility]) immature granulocyte % 1.1 % 0-3.0 Immature Gran ulocyte % [facility] ([facility]) nucleated red blood cell % 0.0 % 0-0 Nucleated Red Blood Cell % [facility] ([facility]) neutrophils # 17.3 10 1.5-8.5 Above high normal Neutrophils # A THENA ([facility]) lymph # 0.3 10 1.5-5.0 Below low normal Lymph # [facility] ( [facility]) mono # 0.8 10 0.0-0.8 Faulk # [facility] ([facility]) baso # 0.0 10 0.0-0.2 Baso # [facility] ([facility]) eos # 0.0 10 0.0-0.5 Eos # [facility] ([facility]) ID Date Data Source [id number] 06/16/2020 01:47:00 PM EST [facility] ([facility]) Name Value Range Interpretation Code Description Data Marla rce(s) Supporting Document(s) lipase 450 U/L 73-393 Above high normal Lipase [facility] ([facility]) ID Date Data Source [id number] 06/16/2020 01:47:00 PM EST [facility] ([facility]) Name Value Range Interpretation Code Description Data Marla rce(s) Supporting Document(s) blood urea nitrogen 8 mg/dL 7-18 Blood Urea Nitro gen [facility] ([facility]) glucose, fasting 112 mg/dL 70-100 Above high normal Glucose, Fas ting [facility] ([facility]) creatinine for GFR 1.32 mg/dL 0.70-1.30 Above high normal Creatinine for GFR [place] ([facility]) glomerular filtration rate > 60.0 >60 Glomerula r Filtration Rate [place] ([facility]) potassium serum 4.0 mEq/L 3.5-5.1 Potassium Serum ATH NA ([facility]) sodium level 136 mEq/L 136-145 Sodium Level [facility] ([facility]) chloride level 102 mEq/L 98-107 Chloride Level [place] ([facility]) carbon dioxide level 27 mEq/L 21-32 Carbon Dioxide Level [place] ([facility]) anion gap 7 mEq/L 8-16 Below low normal Anion Gap [place] ( [facility]) calcium level 8.9 mg/dL 8.5-10.1 Calcium Level [place] ( [facility]) ID Date Data Source [id number] 06/16/2020 01:47:00 PM EST [place] ([facility]) Name Value Range Interpretation Code Description Data Marla rce(s) Supporting Document(s) AST/SGOT 51 U/L 7-37 Above high normal AST/SGOT [place] ([facility]) ALT/SGPT 74 U/L 12-78 ALT/SGPT [place] ([facility]) alkaline phosphatase 116 U/L 45-117 Alkaline Phosph atase [place] ([facility]) bilirubin,total 1.1 mg/dL 0.2-1.0 Above high normal Bilirubin,tot al [facility] ([facility]) total protein 6.7 gm/dL 6.4-8.2 Total Protein [place] ( [facility]) bilirubin,direct 0.8 mg/dL 0.0-0.2 Above high normal Bilirubin,di rect [facility] ([facility]) albumin 3.1 gm/dL 3.2-5.2 Below low normal Albumin [facility] ( [facility]) albumin/globulin ratio Albumin/globu mar Ratio [facility] ([facility]) ID Date Data Source [id number] 06/16/2020 01:47:00 PM EST [facility] ([facility]) Name Value Range Interpretation Code Description Data Marla rce(s) Supporting Document(s) prothrombin time 15.5 seconds 12.5-14.3 Above high normal Prothrombi n Time [facility] ([facility]) INR Inr [facility] ([facility]) ID Date Data Source [id number] 06/16/2020 01:47:00 PM EST [facility] ([facility]) Name Value Range Interpretation Code Description Data Marla rce(s) Supporting Document(s) white blood count 18.6 10 4.0-10.0 Above high normal White Blood Count [facility] ([facility]) red blood count 4.43 10 4.30-6.10 Red Blood Count [facility] ([facility]) hemoglobin 12.9 g/dL 13.5-17.5 Below low normal Hemoglobin [facility] ( [facility]) hematocrit 38.9 % 42.0-52.0 Below low normal Hematocrit [facility] ( [facility]) mean corpuscular volume 87.8 fL 80.0-96.0 Mean Corpusc ular Volume [facility] ([facility]) mean corpuscular hemoglobin 29.1 pg 27.0-33.0 Mean Cor puscular Hemoglobin [facility] ([facility]) mean corpuscular HGB conc 33.2 g/dL 32.0-36.5 Mean Corpu scular HGB Conc [facility] ([facility]) platelet count, automated 347 10 150-450 Platelet C ount, Automated [facility] ([facility]) red cell distribution width 13.3 % 11.5-14.5 Red Cell Distribution Width [facility] ([facility]) neutrophils % 93.0 % 36.0-66.0 Above high normal Neutrophils % A THENA ([facility]) lymph % 1.7 % 24.0-44.0 Below low normal Lymph % [facility] ( [facility]) mono % 4.0 % 2.0-8.0 [place]ulk % [facility] ([facility]) eos % 0.0 % 0.0-3.0 Eos % [facility] ([facility]) baso % 0.2 % 0.0-1.0 Baso % [facility] ([facility]) immature granulocyte % 1.1 % 0-3.0 Immature Gran ulocyte % [facility] ([facility]) nucleated red blood cell % 0.0 % 0-0 Nucleated Red Blood Cell % [facility] ([facility]) neutrophils # 17.3 10 1.5-8.5 Above high normal Neutrophils # A THENA ([facility]) lymph # 0.3 10 1.5-5.0 Below low normal Lymph # [facility] ( [facility]) mono # 0.8 10 0.0-0.8 Faulk # [facility] ([facility]) baso # 0.0 10 0.0-0.2 Baso # [facility] ([facility]) eos # 0.0 10 0.0-0.5 Eos # [facility] ([facility]) ID Date Data Source [id number] 06/16/2020 01:47:00 PM EST [facility] ([facility]) Name Value Range Interpretation Code Description Data Marla rce(s) Supporting Document(s) lipase 450 U/L 73-393 Above high normal Lipase [facility] ([facility]) ID Date Data Source [id number] 06/16/2020 01:47:00 PM EST [facility] ([facility]) Name Value Range Interpretation Code Description Data Marla rce(s) Supporting Document(s) glucose, fasting 112 mg/dL 70-100 Above high normal Glucose, Fas ting [facility] ([facility]) blood urea nitrogen 8 mg/dL 7-18 Blood Urea Nitro gen [facility] ([facility]) creatinine for GFR 1.32 mg/dL 0.70-1.30 Above high normal Creatinine for GFR [facility] ([facility]) glomerular filtration rate > 60.0 >60 Glomerula r Filtration Rate [facility] ([facility]) sodium level 136 mEq/L 136-145 Sodium Level [facility] ([facility]) potassium serum 4.0 mEq/L 3.5-5.1 Potassium Serum ATHE NA ([facility]) chloride level 102 mEq/L 98-107 Chloride Level [facility] ([facility]) anion gap 7 mEq/L 8-16 Below low normal Anion Gap [facility] ( [facility]) carbon dioxide level 27 mEq/L 21-32 Carbon Dioxide Level [place] ([facility]) calcium level 8.9 mg/dL 8.5-10.1 Calcium Level [place] ( [facility]) ID Date Data Source [id number] 06/16/2020 01:47:00 PM EST [place] ([facility]) Name Value Range Interpretation Code Description Data Marla rce(s) Supporting Document(s) ALT/SGPT 74 U/L 12-78 ALT/SGPT [place] ([facility]) AST/SGOT 51 U/L 7-37 Above high normal AST/SGOT [place] ([facility]) alkaline phosphatase 116 U/L 45-117 [facility] bilirubin,total 1.1 mg/dL 0.2-1.0 Above high normal [facility] bilirubin,direct 0.8 mg/dL 0.0-0.2 Above high normal Bilirubin,di rect [facility] ([facility]) total protein 6.7 gm/dL 6.4-8.2 Total Protein [facility] ( [facility]) albumin 3.1 gm/dL 3.2-5.2 Below low normal Albumin [place] ( [facility]) albumin/globulin ratio [facility] ID Date Data Source [id number] 06/16/2020 01:47:00 PM EST [facility] ([facility]) Name Value Range Interpretation Code Description Data Marla rce(s) Supporting Document(s) prothrombin time 15.5 seconds 12.5-14.3 Above high normal Prothrombi n Time [facility] ([facility]) INR Inr [facility] ([facility]) ID Date Data Source [id number] 06/16/2020 01:47:00 PM EST [facility] ([facility]) Name Value Range Interpretation Code Description Data Marla rce(s) Supporting Document(s) white blood count 18.6 10 4.0-10.0 Above high normal White Blood Count [facility] ([facility]) red blood count 4.43 10 4.30-6.10 Red Blood Count [facility] ([facility]) hematocrit 38.9 % 42.0-52.0 Below low normal Hematocrit [facility] ( [facility]) hemoglobin 12.9 g/dL 13.5-17.5 Below low normal Hemoglobin [facility] ( [facility]) mean corpuscular volume 87.8 fL 80.0-96.0 Mean Corpusc ular Volume [facility] ([facility]) mean corpuscular HGB conc 33.2 g/dL 32.0-36.5 Mean Corpu scular HGB Conc [facility] ([facility]) mean corpuscular hemoglobin 29.1 pg 27.0-33.0 Mean Cor puscular Hemoglobin [facility] ([facility]) red cell distribution width 13.3 % 11.5-14.5 Red Cell Distribution Width [facility] ([facility]) platelet count, automated 347 10 150-450 Platelet C ount, Automated [facility] ([facility]) lymph % 1.7 % 24.0-44.0 Below low normal Lymph % [facility] ( [facility]) mono % 4.0 % 2.0-8.0 Faulk % [facility] ([facility]) neutrophils % 93.0 % 36.0-66.0 Above high normal Neutrophils % A THENA ([facility]) baso % 0.2 % 0.0-1.0 Baso % [facility] ([facility]) eos % 0.0 % 0.0-3.0 Eos % [facility] ([facility]) nucleated red blood cell % 0.0 % 0-0 Nucleated Red Blood Cell % [facility] ([facility]) immature granulocyte % 1.1 % 0-3.0 Immature Gran ulocyte % [facility] ([facility]) lymph # 0.3 10 1.5-5.0 Below low normal Lymph # [facility] ( [facility]) neutrophils # 17.3 10 1.5-8.5 Above high normal Neutrophils # A THENA ([facility]) eos # 0.0 10 0.0-0.5 Eos # [facility] ([facility]) mono # 0.8 10 0.0-0.8 Faulk # [facility] ([facility]) baso # 0.0 10 0.0-0.2 Baso # [facility] ([facility]) ID Date Data Source [id number] 06/16/2020 01:47:00 PM EST [facility] ([facility]) Name Value Range Interpretation Code Description Data Marla rce(s) Supporting Document(s) lipase 450 U/L 73-393 Above high normal Lipase [place] ([facility]) ID Date Data Source [id number] 06/16/2020 01:47:00 PM EST [facility] ([facility]) Name Value Range Interpretation Code Description Data Marla rce(s) Supporting Document(s) glucose, fasting 112 mg/dL 70-100 Above high normal Glucose, Fas ting [facility] ([facility]) blood urea nitrogen 8 mg/dL 7-18 Blood Urea Nitro gen [facility] ([facility]) creatinine for GFR 1.32 mg/dL 0.70-1.30 Above high normal Creatinine for GFR [place] ([facility]) glomerular filtration rate > 60.0 >60 Glomerula r Filtration Rate [facility] ([facility]) potassium serum 4.0 mEq/L 3.5-5.1 Potassium Serum ATHE NA ([facility]) sodium level 136 mEq/L 136-145 Sodium Level [facility] ([facility]) carbon dioxide level 27 mEq/L 21-32 Carbon Dioxide Level [facility] ([facility]) chloride level 102 mEq/L 98-107 Chloride Level [facility] ([facility]) anion gap 7 mEq/L 8-16 Below low normal Anion Gap [facility] ( [facility]) calcium level 8.9 mg/dL 8.5-10.1 Calcium Level [facility] ( [facility]) ID Date Data Source [id number] 06/16/2020 01:47:00 PM EST [place] ([facility]) Name Value Range Interpretation Code Description Data Marla rce(s) Supporting Document(s) AST/SGOT 51 U/L 7-37 Above high normal AST/SGOT [facility] ([facility]) alkaline phosphatase 116 U/L 45-117 Alkaline Phosph atase [place] ([facility]) ALT/SGPT 74 U/L 12-78 ALT/SGPT [facility] ([facility]) bilirubin,total 1.1 mg/dL 0.2-1.0 Above high normal Bilirubin,tot al [facility] ([facility]) bilirubin,direct 0.8 mg/dL 0.0-0.2 Above high normal Bilirubin,di rect [facility] ([facility]) total protein 6.7 gm/dL 6.4-8.2 Total Protein [place] ( [facility]) albumin/globulin ratio Albumin/globu mar Ratio [facility] ([facility]) albumin 3.1 gm/dL 3.2-5.2 Below low normal Albumin [place] ( [facility]) ID Date Data Source [id number] 06/16/2020 01:47:00 PM EST [place] ([facility]) Name Value Range Interpretation Code Description Data Marla rce(s) Supporting Document(s) prothrombin time 15.5 seconds 12.5-14.3 Above high normal Prothrombi n Time [facility] ([facility]) INR Inr [facility] ([facility]) ID Date Data Source [id number] 06/16/2020 01:47:00 PM EST [place] ([facility]) Name Value Range Interpretation Code Description Data Marla rce(s) Supporting Document(s) red blood count 4.43 10 4.30-6.10 Red Blood Count AT[facility] NA ([facility]) white blood count 18.6 10 4.0-10.0 Above high normal White Blood Count [facility] ([facility]) hematocrit 38.9 % 42.0-52.0 Below low normal Hematocrit [facility] ( [facility]) hemoglobin 12.9 g/dL 13.5-17.5 Below low normal Hemoglobin [facility] ( [facility]) mean corpuscular volume 87.8 fL 80.0-96.0 Mean Corpusc ular Volume [facility] ([facility]) mean corpuscular hemoglobin 29.1 pg 27.0-33.0 Mean Cor puscular Hemoglobin [facility] ([facility]) red cell distribution width 13.3 % 11.5-14.5 Red Cell Distribution Width [facility] ([facility]) mean corpuscular HGB conc 33.2 g/dL 32.0-36.5 Mean Corpu scular HGB Conc [facility] ([facility]) platelet count, automated 347 10 150-450 Platelet C ount, Automated [facility] ([facility]) lymph % 1.7 % 24.0-44.0 Below low normal Lymph % [facility] ( [facility]) neutrophils % 93.0 % 36.0-66.0 Above high normal Neutrophils % A THENA ([facility]) eos % 0.0 % 0.0-3.0 Eos % [facility] ([facility]) mono % 4.0 % 2.0-8.0 Faulk % [facility] ([facility]) immature granulocyte % 1.1 % 0-3.0 Immature Gran ulocyte % [facility] ([facility]) baso % 0.2 % 0.0-1.0 Baso % [facility] ([facility]) nucleated red blood cell % 0.0 % 0-0 Nucleated Red Blood Cell % [facility] ([facility]) neutrophils # 17.3 10 1.5-8.5 Above high normal Neutrophils # A THENA ([facility]) lymph # 0.3 10 1.5-5.0 Below low normal Lymph # [facility] ( [facility]) mono # 0.8 10 0.0-0.8 Faulk # [facility] ([facility]) eos # 0.0 10 0.0-0.5 Eos # [facility] ([facility]) baso # 0.0 10 0.0-0.2 Baso # [facility] ([facility]) ID Date Data Source [id number] 06/16/2020 01:47:00 PM EST [facility] ([facility]) Name Value Range Interpretation Code Description Data Marla rce(s) Supporting Document(s) lipase 450 U/L 73-393 Above high normal Lipase [facility] ([facility]) ID Date Data Source [id number] 06/16/2020 01:47:00 PM EST [facility] ([facility]) Name Value Range Interpretation Code Description Data Marla rce(s) Supporting Document(s) glucose, fasting 112 mg/dL 70-100 Above high normal Glucose, Fas ting [facility] ([facility]) blood urea nitrogen 8 mg/dL 7-18 Blood Urea Nitro gen [facility] ([facility]) creatinine for GFR 1.32 mg/dL 0.70-1.30 Above high normal Creatinine for GFR [facility] ([facility]) glomerular filtration rate > 60.0 >60 Glomerula r Filtration Rate [facility] ([facility]) sodium level 136 mEq/L 136-145 Sodium Level [facility] ([facility]) potassium serum 4.0 mEq/L 3.5-5.1 Potassium Serum ATHE NA ([facility]) carbon dioxide level 27 mEq/L 21-32 Carbon Dioxide Level [facility] ([facility]) chloride level 102 mEq/L 98-107 Chloride Level [facility] ([facility]) anion gap 7 mEq/L 8-16 Below low normal Anion Gap [facility] ( [facility]) calcium level 8.9 mg/dL 8.5-10.1 Calcium Level [facility] ( [facility]) ID Date Data Source [id number] 06/16/2020 01:47:00 PM EST [facility] ([facility]) Name Value Range Interpretation Code Description Data Marla rce(s) Supporting Document(s) ALT/SGPT 74 U/L 12-78 ALT/SGPT [facility] ([facility]) AST/SGOT 51 U/L 7-37 Above high normal AST/SGOT [facility] ([facility]) alkaline phosphatase 116 U/L 45-117 Alkaline Phosph atase [facility] ([facility]) bilirubin,total 1.1 mg/dL 0.2-1.0 Above high normal Bilirubin,tot al [facility] ([facility]) total protein 6.7 gm/dL 6.4-8.2 Total Protein [facility] ( [facility]) bilirubin,direct 0.8 mg/dL 0.0-0.2 Above high normal Bilirubin,di rect [facility] ([facility]) albumin/globulin ratio Albumin/globu mar Ratio [facility] ([facility]) albumin 3.1 gm/dL 3.2-5.2 Below low normal Albumin [facility] ( [facility]) ID Date Data Source [id number] 06/16/2020 01:47:00 PM EST [facility] ([facility]) Name Value Range Interpretation Code Description Data Marla rce(s) Supporting Document(s) INR Inr [facility] ([facility]) prothrombin time 15.5 seconds 12.5-14.3 Above high normal Prothrombi n Time [facility] ([facility]) ID Date Data Source [id number] 06/16/2020 01:47:00 PM EST [facility] ([facility]) Name Value Range Interpretation Code Description Data Marla rce(s) Supporting Document(s) white blood count 18.6 10 4.0-10.0 Above high normal White Blood Count [facility] ([facility]) red blood count 4.43 10 4.30-6.10 Red Blood Count ATHE NA ([facility]) hematocrit 38.9 % 42.0-52.0 Below low normal Hematocrit [facility] ( [facility]) hemoglobin 12.9 g/dL 13.5-17.5 Below low normal Hemoglobin [facility] ( [facility]) mean corpuscular volume 87.8 fL 80.0-96.0 Mean Corpusc ular Volume [facility] ([facility]) mean corpuscular hemoglobin 29.1 pg 27.0-33.0 Mean Cor puscular Hemoglobin [facility] ([facility]) red cell distribution width 13.3 % 11.5-14.5 Red Cell Distribution Width [facility] ([facility]) mean corpuscular HGB conc 33.2 g/dL 32.0-36.5 Mean Corpu scular HGB Conc [facility] ([facility]) platelet count, automated 347 10 150-450 Platelet C ount, Automated [facility] ([facility]) lymph % 1.7 % 24.0-44.0 Below low normal Lymph % [facility] ( [facility]) neutrophils % 93.0 % 36.0-66.0 Above high normal Neutrophils % A [facility] ([facility]) mono % 4.0 % 2.0-8.0 [place] % [place] ([facility]) eos % 0.0 % 0.0-3.0 Eos % [facility] ([facility]) immature granulocyte % 1.1 % 0-3.0 Immature Gran ulocyte % [facility] ([facility]) baso % 0.2 % 0.0-1.0 Baso % [place] ([facility]) nucleated red blood cell % 0.0 % 0-0 Nucleated Red Blood Cell % [facility] ([facility]) neutrophils # 17.3 10 1.5-8.5 Above high normal Neutrophils # A [facility] ([facility]) mono # 0.8 10 0.0-0.8 Fa[place] # [facility] ([facility]) lymph # 0.3 10 1.5-5.0 Below low normal Lymph # [facility] ( [facility]) baso # 0.0 10 0.0-0.2 Baso # [facility] ([facility]) eos # 0.0 10 0.0-0.5 Eos # [facility] ([facility]) ID Date Data Source [id number] 06/04/2020 08:02:00 AM EST [facility] ([facility]) Name Value Range Interpretation Code Description Data Marla rce(s) Supporting Document(s) lipase 281 U/L 73-393 Lipase [place] ([facility]) ID Date Data Source [id number] 06/04/2020 08:02:00 AM EST [facility] ([facility]) Name Value Range Interpretation Code Description Data Marla rce(s) Supporting Document(s) glucose, fasting 82 mg/dL 70-100 Glucose, Fasting AT [facility]) creatinine for GFR 0.81 mg/dL 0.70-1.30 Creatinine for GF R [place] ([facility]) blood urea nitrogen 15 mg/dL 7-18 Blood Urea Nitro gen [facility] ([facility]) glomerular filtration rate > 60.0 >60 Glomerula r Filtration Rate [facility] ([facility]) sodium level 140 mEq/L 136-145 Sodium Level [facility] ([facility]) chloride level 103 mEq/L 98-107 Chloride Level [facility] ([facility]) carbon dioxide level 29 mEq/L 21-32 Carbon Dioxide Level [facility] ([facility]) potassium serum 4.0 mEq/L 3.5-5.1 Potassium Serum ATHE NA ([facility]) calcium level 8.6 mg/dL 8.5-10.1 Calcium Level [facility] ( [facility]) anion gap 8 mEq/L 8-16 Anion Gap [facility] ([facility]) AST/SGOT 27 U/L 7-37 AST/SGOT [facility] ([facility]) ALT/SGPT 77 U/L 12-78 ALT/SGPT [facility] ([facility]) alkaline phosphatase 139 U/L 45-117 Above high normal Alkaline Phosphatase [facility] ([facility]) total protein 6.4 gm/dL 6.4-8.2 Total Protein [facility] ( [facility]) bilirubin,total 2.7 mg/dL 0.2-1.0 Above high normal Bilirubin,tot al [facility] ([facility]) albumin 2.9 gm/dL 3.2-5.2 Below low normal Albumin [facility] ( [facility]) albumin/globulin ratio Albumin/globu mar Ratio [facility] ([facility]) ID Date Data Source [id number] 06/04/2020 08:02:00 AM EST [facility] ([facility]) Name Value Range Interpretation Code Description Data Marla rce(s) Supporting Document(s) white blood count 12.9 10 4.0-10.0 Above high normal White Blood Count [facility] ([facility]) red blood count 4.57 10 4.30-6.10 Red Blood Count [facility] ([facility]) hematocrit 39.9 % 42.0-52.0 Below low normal Hematocrit [facility] ( [facility]) hemoglobin 13.0 g/dL 13.5-17.5 Below low normal Hemoglobin [facility] ( [facility]) mean corpuscular hemoglobin 28.4 pg 27.0-33.0 Mean Cor puscular Hemoglobin [facility] ([facility]) mean corpuscular volume 87.3 fL 80.0-96.0 Mean Corpusc ular Volume [facility] ([facility]) red cell distribution width 13.9 % 11.5-14.5 Red Cell Distribution Width [facility] ([facility]) platelet count, automated 262 10 150-450 Platelet C ount, Automated [facility] ([facility]) mean corpuscular HGB conc 32.6 g/dL 32.0-36.5 Mean Corpu scular HGB Conc [facility] ([facility]) lymph % 10.7 % 24.0-44.0 Below low normal Lymph % [facility] ( [facility]) neutrophils % 73.6 % 36.0-66.0 Above high normal Neutrophils % A [facility] ([facility]) mono % 12.9 % 0.0-5.0 Above high normal [place] % [facility] ([facility]) eos % 1.8 % 0.0-3.0 Eos % [facility] ([facility]) baso % 0.2 % 0.0-1.0 Baso % [facility] ([facility]) immature granulocyte % 0.8 % 0-3.0 Immature Gran ulocyte % [facility] ([facility]) neutrophils # 9.5 10 1.5-8.5 Above high normal Neutrophils # A [facility] ([facility]) nucleated red blood cell % 0.0 % 0-0 Nucleated Red Blood Cell % [facility] ([facility]) lymph # 1.4 10 1.5-5.0 Below low normal Lymph # [facility] ( [facility]) eos # 0.2 10 0.0-0.5 Eos # [facility] ([facility]) mono # 1.7 10 0.0-0.8 Above high normal [place] # [facility] ([facility]) baso # 0.0 10 0.0-0.2 Baso # [facility] ([facility]) ID Date Data Source [id number] 06/04/2020 08:02:00 AM EST [facility] ([facility]) Name Value Range Interpretation Code Description Data Marla rce(s) Supporting Document(s) lipase 281 U/L 73-393 Lipase [facility] ([facility]) ID Date Data Source [id number] 06/04/2020 08:02:00 AM EST [facility] ([facility]) Name Value Range Interpretation Code Description Data Marla rce(s) Supporting Document(s) glucose, fasting 82 mg/dL 70-100 Glucose, Fasting AT [facility] ([facility]) blood urea nitrogen 15 mg/dL 7-18 Blood Urea Nitro gen [facility] ([facility]) glomerular filtration rate > 60.0 >60 Glomerula r Filtration Rate [facility] ([facility]) creatinine for GFR 0.81 mg/dL 0.70-1.30 Creatinine for GF R [facility] ([facility]) sodium level 140 mEq/L 136-145 Sodium Level [facility] ([facility]) chloride level 103 mEq/L 98-107 Chloride Level [facility] ([facility]) potassium serum 4.0 mEq/L 3.5-5.1 Potassium Serum ATHE NA ([facility]) carbon dioxide level 29 mEq/L 21-32 Carbon Dioxide Level [facility] ([facility]) calcium level 8.6 mg/dL 8.5-10.1 Calcium Level [facility] ( [facility]) anion gap 8 mEq/L 8-16 Anion Gap [facility] ([facility]) AST/SGOT 27 U/L 7-37 AST/SGOT [facility] ([facility]) ALT/SGPT 77 U/L 12-78 ALT/SGPT [facility] ([facility]) alkaline phosphatase 139 U/L 45-117 Above high normal Alkaline Phosphatase [facility] ([facility]) bilirubin,total 2.7 mg/dL 0.2-1.0 Above high normal Bilirubin,tot al [facility] ([facility]) total protein 6.4 gm/dL 6.4-8.2 Total Protein [facility] ( [facility]) albumin/globulin ratio Albumin/globu mar Ratio [facility] ([facility]) albumin 2.9 gm/dL 3.2-5.2 Below low normal Albumin [facility] ( [facility]) ID Date Data Source [id number] 06/04/2020 08:02:00 AM EST [facility] ([facility]) Name Value Range Interpretation Code Description Data Marla rce(s) Supporting Document(s) white blood count 12.9 10 4.0-10.0 Above high normal White Blood Count [facility] ([facility]) red blood count 4.57 10 4.30-6.10 Red Blood Count ATHE NA ([facility]) hemoglobin 13.0 g/dL 13.5-17.5 Below low normal Hemoglobin [facility] ( [facility]) hematocrit 39.9 % 42.0-52.0 Below low normal Hematocrit [facility] ( [facility]) mean corpuscular volume 87.3 fL 80.0-96.0 Mean Corpusc ular Volume [facility] ([facility]) mean corpuscular hemoglobin 28.4 pg 27.0-33.0 Mean Cor puscular Hemoglobin [facility] ([facility]) mean corpuscular HGB conc 32.6 g/dL 32.0-36.5 Mean Corpu scular HGB Conc [facility] ([facility]) red cell distribution width 13.9 % 11.5-14.5 Red Cell Distribution Width [facility] ([facility]) platelet count, automated 262 10 150-450 Platelet C ount, Automated [facility] ([facility]) neutrophils % 73.6 % 36.0-66.0 Above high normal Neutrophils % A [facility] ([facility]) lymph % 10.7 % 24.0-44.0 Below low normal Lymph % [facility] ( [facility]) eos % 1.8 % 0.0-3.0 Eos % [facility] ([facility]) mono % 12.9 % 0.0-5.0 Above high normal [place] % [facility] ([facility]) baso % 0.2 % 0.0-1.0 Baso % [facility] ([facility]) immature granulocyte % 0.8 % 0-3.0 Immature Gran ulocyte % [facility] ([facility]) nucleated red blood cell % 0.0 % 0-0 Nucleated Red Blood Cell % [facility] ([facility]) neutrophils # 9.5 10 1.5-8.5 Above high normal Neutrophils # A [facility] ([facility]) lymph # 1.4 10 1.5-5.0 Below low normal Lymph # [facility] ( [facility]) eos # 0.2 10 0.0-0.5 Eos # [facility] ([facility]) mono # 1.7 10 0.0-0.8 Above high normal [place] # [facility] ([facility]) baso # 0.0 10 0.0-0.2 Baso # [facility] ([facility]) ID Date Data Source [id number] 06/04/2020 08:02:00 AM EST [facility] ([facility]) Name Value Range Interpretation Code Description Data Marla rce(s) Supporting Document(s) lipase 281 U/L 73-393 Lipase [facility] ([facility]) ID Date Data Source [id number] 06/04/2020 08:02:00 AM EST [facility] ([facility]) Name Value Range Interpretation Code Description Data Marla rce(s) Supporting Document(s) glucose, fasting 82 mg/dL 70-100 Glucose, Fasting AT [facility] ([facility]) creatinine for GFR 0.81 mg/dL 0.70-1.30 Creatinine for GF R [place] ([facility]) blood urea nitrogen 15 mg/dL 7-18 Blood Urea Nitro gen [facility] ([facility]) glomerular filtration rate > 60.0 >60 Glomerula r Filtration Rate [place] ([facility]) sodium level 140 mEq/L 136-145 Sodium Level [place] ([facility]) potassium serum 4.0 mEq/L 3.5-5.1 Potassium Serum ATHE NA ([facility]) chloride level 103 mEq/L 98-107 Chloride Level [place] ([facility]) anion gap 8 mEq/L 8-16 Anion Gap [facility] ([facility]) carbon dioxide level 29 mEq/L 21-32 Carbon Dioxide Level [place] ([facility]) calcium level 8.6 mg/dL 8.5-10.1 Calcium Level [place] ( [facility]) ALT/SGPT 77 U/L 12-78 ALT/SGPT [place] ([facility]) AST/SGOT 27 U/L 7-37 AST/SGOT [place] ([facility]) bilirubin,total 2.7 mg/dL 0.2-1.0 Above high normal Bilirubin,tot al [place] ([facility]) alkaline phosphatase 139 U/L 45-117 Above high normal Alkaline Phosphatase [facility] ([facility]) total protein 6.4 gm/dL 6.4-8.2 Total Protein [facility] ( [facility]) albumin 2.9 gm/dL 3.2-5.2 Below low normal Albumin [facility] ( [facility]) albumin/globulin ratio Albumin/globu mar Ratio [place] ([facility]) ID Date Data Source [id number] 06/04/2020 08:02:00 AM EST [place] ([facility]) Name Value Range Interpretation Code Description Data Marla rce(s) Supporting Document(s) white blood count 12.9 10 4.0-10.0 Above high normal White Blood Count [place] ([facility]) red blood count 4.57 10 4.30-6.10 Red Blood Count [facility] ([facility]) hematocrit 39.9 % 42.0-52.0 Below low normal Hematocrit [facility] ( [facility]) hemoglobin 13.0 g/dL 13.5-17.5 Below low normal Hemoglobin [facility] ( [facility]) mean corpuscular volume 87.3 fL 80.0-96.0 Mean Corpusc ular Volume [facility] ([facility]) mean corpuscular HGB conc 32.6 g/dL 32.0-36.5 Mean Corpu scular HGB Conc [facility] ([facility]) mean corpuscular hemoglobin 28.4 pg 27.0-33.0 Mean Cor puscular Hemoglobin [facility] ([facility]) red cell distribution width 13.9 % 11.5-14.5 Red Cell Distribution Width [facility] ([facility]) platelet count, automated 262 10 150-450 Platelet C ount, Automated [facility] ([facility]) lymph % 10.7 % 24.0-44.0 Below low normal Lymph % [facility] ( [facility]) neutrophils % 73.6 % 36.0-66.0 Above high normal Neutrophils % [place] [facility] ([facility]) mono % 12.9 % 0.0-5.0 Above high normal [place] % [facility] ([facility]) eos % 1.8 % 0.0-3.0 Eos % [facility] ([facility]) baso % 0.2 % 0.0-1.0 Baso % [facility] ([facility]) immature granulocyte % 0.8 % 0-3.0 Immature Gran ulocyte % [facility] ([facility]) nucleated red blood cell % 0.0 % 0-0 Nucleated Red Blood Cell % [facility] ([facility]) mono # 1.7 10 0.0-0.8 Above high normal [place] # [facility] ([facility]) lymph # 1.4 10 1.5-5.0 Below low normal Lymph # [facility] ( [facility]) neutrophils # 9.5 10 1.5-8.5 Above high normal Neutrophils # A [facility] ([facility]) eos # 0.2 10 0.0-0.5 Eos # [facility] ([facility]) baso # 0.0 10 0.0-0.2 Baso # [facility] ([facility]) ID Date Data Source [id number] 06/04/2020 08:02:00 AM EST [facility] ([facility]) Name Value Range Interpretation Code Description Data Marla rce(s) Supporting Document(s) lipase 281 U/L 73-393 Lipase [facility] ([facility]) ID Date Data Source [id number] 06/04/2020 08:02:00 AM EST [facility] ([facility]) Name Value Range Interpretation Code Description Data Marla rce(s) Supporting Document(s) creatinine for GFR 0.81 mg/dL 0.70-1.30 Creatinine for GF R [place] ([facility]) glucose, fasting 82 mg/dL 70-100 Glucose, Fasting AT [facility] ([facility]) blood urea nitrogen 15 mg/dL 7-18 Blood Urea Nitro gen [facility] ([facility]) potassium serum 4.0 mEq/L 3.5-5.1 Potassium Serum ATHE NA ([facility]) sodium level 140 mEq/L 136-145 Sodium Level [facility] ([facility]) glomerular filtration rate > 60.0 >60 Glomerula r Filtration Rate [facility] ([facility]) anion gap 8 mEq/L 8-16 Anion Gap [facility] ([facility]) chloride level 103 mEq/L 98-107 Chloride Level [facility] ([facility]) carbon dioxide level 29 mEq/L 21-32 Carbon Dioxide Level [facility] ([facility]) calcium level 8.6 mg/dL 8.5-10.1 Calcium Level [facility] ( [facility]) AST/SGOT 27 U/L 7-37 AST/SGOT [facility] ([facility]) alkaline phosphatase 139 U/L 45-117 Above high normal Alkaline Phosphatase [facility] ([facility]) bilirubin,total 2.7 mg/dL 0.2-1.0 Above high normal Bilirubin,tot al [facility] ([facility]) ALT/SGPT 77 U/L 12-78 ALT/SGPT [facility] ([facility]) total protein 6.4 gm/dL 6.4-8.2 Total Protein [facility] ( [facility]) albumin 2.9 gm/dL 3.2-5.2 Below low normal Albumin [facility] ( [facility]) albumin/globulin ratio Albumin/globu mar Ratio [facility] ([facility]) ID Date Data Source [id number] 06/04/2020 08:02:00 AM EST [facility] ([facility]) Name Value Range Interpretation Code Description Data Marla rce(s) Supporting Document(s) white blood count 12.9 10 4.0-10.0 Above high normal White Blood Count [facility] ([facility]) red blood count 4.57 10 4.30-6.10 Red Blood Count [facility] ([facility]) hemoglobin 13.0 g/dL 13.5-17.5 Below low normal Hemoglobin [facility] ( [facility]) hematocrit 39.9 % 42.0-52.0 Below low normal Hematocrit [facility] ( [facility]) mean corpuscular volume 87.3 fL 80.0-96.0 Mean Corpusc ular Volume [facility] ([facility]) mean corpuscular hemoglobin 28.4 pg 27.0-33.0 Mean Cor puscular Hemoglobin [facility] ([facility]) red cell distribution width 13.9 % 11.5-14.5 Red Cell Distribution Width [facility] ([facility]) mean corpuscular HGB conc 32.6 g/dL 32.0-36.5 Mean Corpu scular HGB Conc [facility] ([facility]) lymph % 10.7 % 24.0-44.0 Below low normal Lymph % [facility] ( [facility]) neutrophils % 73.6 % 36.0-66.0 Above high normal Neutrophils % A [facility] ([facility]) platelet count, automated 262 10 150-450 Platelet C ount, Automated [facility] ([facility]) eos % 1.8 % 0.0-3.0 Eos % [facility] ([facility]) mono % 12.9 % 0.0-5.0 Above high normal [place] % [facility] ([facility]) immature granulocyte % 0.8 % 0-3.0 Immature Gran ulocyte % [facility] ([facility]) nucleated red blood cell % 0.0 % 0-0 Nucleated Red Blood Cell % [facility] ([facility]) baso % 0.2 % 0.0-1.0 Baso % [facility] ([facility]) lymph # 1.4 10 1.5-5.0 Below low normal Lymph # [facility] ( [facility]) mono # 1.7 10 0.0-0.8 Above high normal [place] # [facility] ([facility]) neutrophils # 9.5 10 1.5-8.5 Above high normal Neutrophils # A [facility] ([facility]) eos # 0.2 10 0.0-0.5 Eos # [facility] ([facility]) baso # 0.0 10 0.0-0.2 Baso # [facility] ([facility]) ID Date Data Source [id number] 06/04/2020 08:02:00 AM EST [facility] ([facility]) Name Value Range Interpretation Code Description Data Marla rce(s) Supporting Document(s) lipase 281 U/L 73-393 Lipase [facility] ([facility]) ID Date Data Source [id number] 06/04/2020 08:02:00 AM EST [facility] ([facility]) Name Value Range Interpretation Code Description Data Marla rce(s) Supporting Document(s) glucose, fasting 82 mg/dL 70-100 Glucose, Fasting AT [facility] ([facility]) blood urea nitrogen 15 mg/dL 7-18 Blood Urea Nitro gen [place] ([facility]) creatinine for GFR 0.81 mg/dL 0.70-1.30 Creatinine for GF R [place] ([facility]) potassium serum 4.0 mEq/L 3.5-5.1 Potassium Serum ATHE NA ([facility]) glomerular filtration rate > 60.0 >60 Glomerula r Filtration Rate [facility] ([facility]) sodium level 140 mEq/L 136-145 Sodium Level [facility] ([facility]) chloride level 103 mEq/L 98-107 Chloride Level [facility] ([facility]) carbon dioxide level 29 mEq/L 21-32 Carbon Dioxide Level [place] ([facility]) anion gap 8 mEq/L 8-16 Anion Gap [facility] ([facility]) calcium level 8.6 mg/dL 8.5-10.1 Calcium Level [facility] ( [facility]) AST/SGOT 27 U/L 7-37 AST/SGOT [facility] ([facility]) alkaline phosphatase 139 U/L 45-117 Above high normal Alkaline Phosphatase [facility] ([facility]) ALT/SGPT 77 U/L 12-78 ALT/SGPT [facility] ([facility]) total protein 6.4 gm/dL 6.4-8.2 Total Protein [facility] ( [facility]) bilirubin,total 2.7 mg/dL 0.2-1.0 Above high normal Bilirubin,tot al [facility] ([facility]) albumin/globulin ratio Albumin/globu mar Ratio [facility] ([facility]) albumin 2.9 gm/dL 3.2-5.2 Below low normal Albumin [facility] ( [facility]) ID Date Data Source [id number] 06/04/2020 08:02:00 AM EST [facility] ([facility]) Name Value Range Interpretation Code Description Data Marla rce(s) Supporting Document(s) white blood count 12.9 10 4.0-10.0 Above high normal White Blood Count [facility] ([facility]) hemoglobin 13.0 g/dL 13.5-17.5 Below low normal Hemoglobin [facility] ( [facility]) red blood count 4.57 10 4.30-6.10 Red Blood Count [facility] NA ([facility]) mean corpuscular volume 87.3 fL 80.0-96.0 Mean Corpusc ular Volume [facility] ([facility]) hematocrit 39.9 % 42.0-52.0 Below low normal Hematocrit [facility] ( [facility]) mean corpuscular hemoglobin 28.4 pg 27.0-33.0 Mean Cor puscular Hemoglobin [facility] ([facility]) mean corpuscular HGB conc 32.6 g/dL 32.0-36.5 Mean Corpu scular HGB Conc [facility] ([facility]) platelet count, automated 262 10 150-450 Platelet C ount, Automated [facility] ([facility]) neutrophils % 73.6 % 36.0-66.0 Above high normal Neutrophils % A [facility] ([facility]) red cell distribution width 13.9 % 11.5-14.5 Red Cell Distribution Width [facility] ([facility]) mono % 12.9 % 0.0-5.0 Above high normal [place] % [facility] ([facility]) lymph % 10.7 % 24.0-44.0 Below low normal Lymph % [facility] ( [facility] [facility] eos % 1.8 % 0.0-3.0 Eos % [place] ([facility]) baso % 0.2 % 0.0-1.0 Baso % [facility] ([facility]) immature granulocyte % 0.8 % 0-3.0 Immature Gran ulocyte % [facility] ([facility]) nucleated red blood cell % 0.0 % 0-0 Nucleated Red Blood Cell % [facility] ([facility]) lymph # 1.4 10 1.5-5.0 Below low normal Lymph # [place] ( [facility]) neutrophils # 9.5 10 1.5-8.5 Above high normal Neutrophils # A [facility] ([facility]) eos # 0.2 10 0.0-0.5 Eos # [place] ([facility]) mono # 1.7 10 0.0-0.8 Above high normal [place] # [facility] ([facility]) baso # 0.0 10 0.0-0.2 Baso # [facility] ([facility]) ID Date Data Source [id number] 06/03/2020 03:26:00 PM EST [place] ([facility]) Name Value Range Interpretation Code Description Data Marla rce(s) Supporting Document(s) ID Date Data Source [id number] 06/03/2020 03:26:00 PM EST [place] ([facility]) Name Value Range Interpretation Code Description Data Marla rce(s) Supporting Document(s) sars covid-19 amplification positive negative Abno rmal (applies to non-numeric results) Sars Covid-19 Amplification [place] ([facility]) ID Date Data Source [id number] 06/03/2020 03:26:00 PM EST [place] ([facility]) Name Value Range Interpretation Code Description Data Marla rce(s) Supporting Document(s) ID Date Data Source [id number] 06/03[facility] Name Value Range Interpretation Code Description Data Marla rce(s) Supporting Document(s) sars covid-19 amplification positive negative Abno rmal (applies to non-numeric results) Sars Covid-19 Amplification [place] ([facility]) ID Date Data Source [id number] 06/03/2020 03:26:00 PM EST [place] ([facility]) Name Value Range Interpretation Code Description Data Marla rce(s) Supporting Document(s) ID Date Data Source [id number] 06/03/2020 03:26:00 PM EST [place] ([facility]) Name Value Range Interpretation Code Description Data Marla rce(s) Supporting Document(s) sars covid-19 amplification positive negative Abno rmal (applies to non-numeric results) Sars Covid-19 Amplification [place] ([facility]) ID Date Data Source [id number] 06/03/2020 03:26:00 PM EST [facility]) Name Value Range Interpretation Code Description Data Marla rce(s) Supporting Document(s) ID Date Data Source [id number] 06/03/2020 03:26:00 PM EST [place] ([facility]) Name Value Range Interpretation Code Description Data Marla rce(s) Supporting Document(s) sars covid-19 amplification positive negative Abno rmal (applies to non-numeric results) Sars Covid-19 Amplification [place] ([facility]) ID Date Data Source [id number] 06/03/2020 03[facility] Name Value Range Interpretation Code Description Data Marla rce(s) Supporting Document(s) ID Date Data Source [id number] 06/03/2020 [facility] Name Value Range Interpretation Code Description Data Marla rce(s) Supporting Document(s) sars covid-19 amplification positive negative Abno rmal (applies to non-numeric results) Sars Covid-19 Amplification [place] ([facility]) ID Date Data Source [id number] 06/03/2020 03:26:00 PM EST [facility] Name Value Range Interpretation Code Description Data Marla rce(s) Supporting Document(s) SARS coronavirus 2 RNA [Presence] in Res piratory specimen by ANJU with probe detection POSITIVE [facility] This lab was ordered by [facility] a nd reported by [facility]. ID Date Data Source [id number] 06/03/2020 11:59:00 AM EST [place] ([facility]) Name Value Range Interpretation Code Description Data Marla rce(s) Supporting Document(s) ID Date Data Source [id number] 06/03/2020 11:59:00 AM EST [place] ([facility]) Name Value Range Interpretation Code Description Data Marla rce(s) Supporting Document(s) lactic acid sepsis protocol 0.9 mmol/L 0.4-2.0 Lactic A karma Sepsis Protocol [facility]) ID Date Data Source [id number] 06/03/2020 11:59:00 AM EST [facility]) Name Value Range Interpretation Code Description Data Marla rce(s) Supporting Document(s) ID Date Data Source [id number] 06/03/2020 11:59:00 AM [facility] Name Value Range Interpretation Code Description Data Marla rce(s) Supporting Document(s) lactic acid sepsis protocol 0.9 mmol/L 0.4-2.0 Lactic A karma Sepsis Protocol [facility]) ID Date Data Source [id number] 06/03/2020 11:59:00 AM [facility] Name Value Range Interpretation Code Description Data Marla rce(s) Supporting Document(s) ID Date Data Source [id number] 06/03/2020 11:59:00 AM EST [facility]) Name Value Range Interpretation Code Description Data Marla rce(s) Supporting Document(s) lactic acid sepsis protocol 0.9 mmol/L 0.4-2.0 Lactic A karma Sepsis Protocol [facility]) ID Date Data Source [id number] 06/03/2020 11:59:00 AM [facility] Name Value Range Interpretation Code Description Data Marla rce(s) Supporting Document(s) ID Date Data Source [id number] 06/03/2020 11:59:00 AM [facility] Name Value Range Interpretation Code Description Data Marla rce(s) Supporting Document(s) lactic acid sepsis protocol 0.9 mmol/L 0.4-2.0 Lactic A karma Sepsis Protocol [facility]) ID Date Data Source [id number] 06/03/2020 11:59:00 AM EST [facility] Name Value Range Interpretation Code Description Data Marla rce(s) Supporting Document(s) ID Date Data Source [id number] 06/03/2020 11:59:00 AM EST [facility] Name Value Range Interpretation Code Description Data Marla rce(s) Supporting Document(s) lactic acid sepsis protocol 0.9 mmol/L 0.4-2.0 Lactic A [facility]epsis [facility] ID Date Data Source [id number] 06/03/2020 11:25:00 AM EST [facility] Name Value Range Interpretation Code Description Data Marla rce(s) Supporting Document(s) lipase 341 U/L 73-393 Lipase [facility] ([facility]) ID Date Data Source [id number] 06/03/2020 11:25:00 AM EST [place] ([facility]) Name Value Range Interpretation Code Description Data Marla rce(s) Supporting Document(s) blood urea nitrogen 13 mg/dL 7-18 Blood Urea Nitro gen [facility] ([facility]) glucose, fasting 96 mg/dL 70-100 Glucose, Fasting AT [place] ([facility]) sodium level 135 mEq/L 136-145 Below low normal Sodium Level [facility] ([facility]) glomerular filtration rate > 60.0 >60 Glomerula r Filtration Rate [place] ([facility]) creatinine for GFR 0.83 mg/dL 0.70-1.30 Creatinine for GF R [place] ([facility]) carbon dioxide level 26 mEq/L 21-32 Carbon Dioxide Level [facility] ([facility]) potassium serum 3.9 mEq/L 3.5-5.1 Potassium Serum [facility] ([facility]) chloride level 101 mEq/L 98-107 Chloride Level [place] ([facility]) calcium level 8.5 mg/dL 8.5-10.1 Calcium Level [place] ( [facility]) anion gap 8 mEq/L 8-16 Anion Gap [facility] ([facility]) ID Date Data Source [id number] 06/03/2020 11:25:00 AM EST [place] ([facility]) Name Value Range Interpretation Code Description Data Marla rce(s) Supporting Document(s) ALT/SGPT 113 U/L 12-78 Above high normal ALT/SGPT [facility] ([facility]) AST/SGOT 56 U/L 7-37 Above high normal AST/SGOT [place] ([facility]) bilirubin,total 4.7 mg/dL 0.2-1.0 Bilirubin,total [facility] ([facility]) alkaline phosphatase 160 U/L 45-117 Above high normal Alkaline Phosphatase [place] ([facility]) bilirubin,direct 3.0 mg/dL 0.0-0.2 Above high normal Bilirubin,di rect [place] ([facility]) total protein 6.9 gm/dL 6.4-8.2 Total Protein [place] ( [facility]) albumin 3.2 gm/dL 3.2-5.2 Albumin [place] ([facility]) albumin/globulin ratio Albumin/globu mar Ratio [facility] ([facility]) ID Date Data Source [id number] 06/03/2020 11:25:00 AM EST [place] ([facility]) Name Value Range Interpretation Code Description Data Marla rce(s) Supporting Document(s) white blood count 15.9 10 4.0-10.0 Above high normal White Blood Count [place] ([facility]) red blood count 4.85 10 4.30-6.10 Red Blood Count [facility] ([facility]) hemoglobin 14.2 g/dL 13.5-17.5 Hemoglobin [place] ([facility]) mean corpuscular hemoglobin 29.3 pg 27.0-33.0 Mean Cor puscular Hemoglobin [facility] ([facility]) mean corpuscular volume 85.4 fL 80.0-96.0 Mean Corpusc ular Volume [facility] ([facility]) hematocrit 41.4 % 42.0-52.0 Below low normal Hematocrit [place] ( [facility]) red cell distribution width 13.5 % 11.5-14.5 Red Cell Distribution Width [place] ([facility]) mean corpuscular HGB conc 34.3 g/dL 32.0-36.5 Mean Corpu scular HGB Conc [place] ([facility]) neutrophils % 76.9 % 36.0-66.0 Above high normal Neutrophils % A [facility] ([facility]) platelet count, automated 285 10 150-450 Platelet C ount, Automated [place] ([facility]) lymph % 8.0 % 24.0-44.0 Below low normal Lymph % [place] ( [facility]) mono % 13.0 % 0.0-5.0 Above high normal [place] % [place] ([facility]) baso % 0.2 % 0.0-1.0 Baso % [place] ([facility]) eos % 0.8 % 0.0-3.0 Eos % [place] ([facility]) nucleated red blood cell % 0.0 % 0-0 Nucleated Red Blood Cell % [place] ([facility]) immature granulocyte % 1.1 % 0-3.0 Immature Gran ulocyte % [place] ([facility]) neutrophils # 12.2 10 1.5-8.5 Above high normal Neutrophils # A [facility] ([facility]) mono # 2.1 10 0.0-0.8 Above high normal [place] # [place] ([facility]) lymph # 1.3 10 1.5-5.0 Below low normal Lymph # [place] ( [facility]) eos # 0.1 10 0.0-0.5 Eos # [place] ([facility]) baso # 0.0 10 0.0-0.2 Baso # [facility] ([facility]) ID Date Data Source [id number] 06/03/2020 11:25:00 AM EST [place] ([facility]) Name Value Range Interpretation Code Description Data Marla rce(s) Supporting Document(s) lipase 341 U/L 73-393 Lipase [facility] ([facility]) ID Date Data Source [id number] 06/03/2020 11:25:00 AM EST [place] ([facility]) Name Value Range Interpretation Code Description Data Marla rce(s) Supporting Document(s) glucose, fasting 96 mg/dL 70-100 Glucose, Fasting AT [facility] ([facility]) blood urea nitrogen 13 mg/dL 7-18 Blood Urea Nitro gen [place] ([facility]) glomerular filtration rate > 60.0 >60 Glomerula r Filtration Rate [facility] ([facility]) creatinine for GFR 0.83 mg/dL 0.70-1.30 Creatinine for GF R [place] ([facility]) potassium serum 3.9 mEq/L 3.5-5.1 Potassium Serum [facility] ([facility]) sodium level 135 mEq/L 136-145 Below low normal Sodium Level [facility] ([facility]) chloride level 101 mEq/L 98-107 Chloride Level [place] ([facility]) carbon dioxide level 26 mEq/L 21-32 Carbon Dioxide Level [facility] ([facility]) anion gap 8 mEq/L 8-16 Anion Gap [facility] ([facility]) calcium level 8.5 mg/dL 8.5-10.1 Calcium Level [place] ( [facility]) ID Date Data Source [id number] 06/03/2020 11:25:00 AM EST [place] ([facility]) Name Value Range Interpretation Code Description Data Marla rce(s) Supporting Document(s) ALT/SGPT 113 U/L 12-78 Above high normal ALT/SGPT [facility] ([facility]) AST/SGOT 56 U/L 7-37 Above high normal AST/SGOT [facility] ([facility]) bilirubin,total 4.7 mg/dL 0.2-1.0 Bilirubin,total [facility] ([facility]) alkaline phosphatase 160 U/L 45-117 Above high normal Alkaline Phosphatase [facility] ([facility]) bilirubin,direct 3.0 mg/dL 0.0-0.2 Above high normal Bilirubin,di rect [facility] ([facility]) albumin 3.2 gm/dL 3.2-5.2 Albumin [facility] ([facility]) total protein 6.9 gm/dL 6.4-8.2 Total Protein [place] ( [facility]) albumin/globulin ratio Albumin/globu mar Ratio [facility] ([facility]) ID Date Data Source [id number] 06/03/2020 11:25:00 AM EST [place] ([facility]) Name Value Range Interpretation Code Description Data Marla rce(s) Supporting Document(s) white blood count 15.9 10 4.0-10.0 Above high normal White Blood Count [place] ([facility]) red blood count 4.85 10 4.30-6.10 Red Blood Count [facility] ([facility]) hemoglobin 14.2 g/dL 13.5-17.5 Hemoglobin [place] ([facility]) mean corpuscular volume 85.4 fL 80.0-96.0 Mean Corpusc ular Volume [facility] ([facility]) hematocrit 41.4 % 42.0-52.0 Below low normal Hematocrit [facility] ( [facility]) mean corpuscular HGB conc 34.3 g/dL 32.0-36.5 Mean Corpu scular HGB Conc [facility] ([facility]) mean corpuscular hemoglobin 29.3 pg 27.0-33.0 Mean Cor puscular Hemoglobin [place] ([facility]) red cell distribution width 13.5 % 11.5-14.5 Red Cell Distribution Width [facility] ([facility]) platelet count, automated 285 10 150-450 Platelet C ount, Automated [place] ([facility]) lymph % 8.0 % 24.0-44.0 Below low normal Lymph % [place] ( [facility]) neutrophils % 76.9 % 36.0-66.0 Above high normal Neutrophils % [facility]) mono % 13.0 % 0.0-5.0 Above high normal [place] % [place] ([facility]) baso % 0.2 % 0.0-1.0 Baso % [place] ([facility]) eos % 0.8 % 0.0-3.0 Eos % [place] ([facility]) immature granulocyte % 1.1 % 0-3.0 Immature Gran ulocyte % [facility] ([facility]) nucleated red blood cell % 0.0 % 0-0 Nucleated Red Blood Cell % [facility] ([facility]) neutrophils # 12.2 10 1.5-8.5 Above high normal Neutrophils # A [facility] ([facility]) mono # 2.1 10 0.0-0.8 Above high normal [place] # [place] ([facility]) lymph # 1.3 10 1.5-5.0 Below low normal Lymph # [place] ( [facility]) eos # 0.1 10 0.0-0.5 Eos # [place] ([facility]) baso # 0.0 10 0.0-0.2 Baso # [facility] ([facility]) ID Date Data Source [id number] 06/03/2020 11:25:00 AM EST [place] ([facility]) Name Value Range Interpretation Code Description Data Marla rce(s) Supporting Document(s) lipase 341 U/L 73-393 Lipase [place] ([facility]) ID Date Data Source [id number] 06/03/2020 11:25:00 AM EST [place] ([facility]) Name Value Range Interpretation Code Description Data Marla rce(s) Supporting Document(s) glucose, fasting 96 mg/dL 70-100 Glucose, Fasting AT [facility]) blood urea nitrogen 13 mg/dL 7-18 Blood Urea Nitro gen [place] ([facility]) creatinine for GFR 0.83 mg/dL 0.70-1.30 Creatinine for GF R [place] ([facility]) sodium level 135 mEq/L 136-145 Below low normal Sodium Level [facility] ([facility]) glomerular filtration rate > 60.0 >60 Glomerula r Filtration Rate [facility] ([facility]) potassium serum 3.9 mEq/L 3.5-5.1 Potassium Serum [facility] ([facility]) chloride level 101 mEq/L 98-107 Chloride Level [facility] ([facility]) carbon dioxide level 26 mEq/L 21-32 Carbon Dioxide Level [facility] ([facility]) calcium level 8.5 mg/dL 8.5-10.1 Calcium Level [place] ( [facility]) anion gap 8 mEq/L 8-16 Anion Gap [place] ([facility]) ID Date Data Source [id number] 06/03/2020 11:25:00 AM EST [place] ([facility]) Name Value Range Interpretation Code Description Data Marla rce(s) Supporting Document(s) AST/SGOT 56 U/L 7-37 Above high normal AST/SGOT [facility] ([facility]) alkaline phosphatase 160 U/L 45-117 Above high normal Alkaline Phosphatase [facility] ([facility]) ALT/SGPT 113 U/L 12-78 Above high normal ALT/SGPT [facility] ([facility]) bilirubin,total 4.7 mg/dL 0.2-1.0 Bilirubin,total [facility] ([facility]) bilirubin,direct 3.0 mg/dL 0.0-0.2 Above high normal Bilirubin,di rect [facility] ([facility]) total protein 6.9 gm/dL 6.4-8.2 Total Protein [place] ( [facility]) albumin/globulin ratio Albumin/globu mar Ratio [place] ([facility]) albumin 3.2 gm/dL 3.2-5.2 Albumin [place] ([facility]) ID Date Data Source [id number] 06/03/2020 11:25:00 AM EST [place] ([facility]) Name Value Range Interpretation Code Description Data Marla rce(s) Supporting Document(s) white blood count 15.9 10 4.0-10.0 Above high normal White Blood Count [facility] ([facility]) red blood count 4.85 10 4.30-6.10 Red Blood Count [facility] ([facility]) hemoglobin 14.2 g/dL 13.5-17.5 Hemoglobin [place] ([facility]) hematocrit 41.4 % 42.0-52.0 Below low normal Hematocrit [facility] ( [facility]) mean corpuscular volume 85.4 fL 80.0-96.0 Mean Corpusc ular Volume [facility] ([facility]) mean corpuscular HGB conc 34.3 g/dL 32.0-36.5 Mean Corpu scular HGB Conc [facility] ([facility]) mean corpuscular hemoglobin 29.3 pg 27.0-33.0 Mean Cor puscular Hemoglobin [facility] ([facility]) platelet count, automated 285 10 150-450 Platelet C ount, Automated [place] ([facility]) neutrophils % 76.9 % 36.0-66.0 Above high normal Neutrophils % A [facility] ([facility]) red cell distribution width 13.5 % 11.5-14.5 Red Cell Distribution Width [facility] ([facility]) eos % 0.8 % 0.0-3.0 Eos % [facility] ([facility]) lymph % 8.0 % 24.0-44.0 Below low normal Lymph % [facility] ( [facility]) mono % 13.0 % 0.0-5.0 Above high normal [place] % [facility] ([facility]) immature granulocyte % 1.1 % 0-3.0 Immature Gran ulocyte % [facility] ([facility]) nucleated red blood cell % 0.0 % 0-0 Nucleated Red Blood Cell % [facility] ([facility]) baso % 0.2 % 0.0-1.0 Baso % [facility] ([facility]) mono # 2.1 10 0.0-0.8 Above high normal [place] # [facility] ([facility]) lymph # 1.3 10 1.5-5.0 Below low normal Lymph # [place] ( [facility]) neutrophils # 12.2 10 1.5-8.5 Above high normal Neutrophils # [facility]) eos # 0.1 10 0.0-0.5 Eos # [place] ([facility]) baso # 0.0 10 0.0-0.2 Baso # [facility] ([facility]) ID Date Data Source [id number] 06/03/2020 11:25:00 AM EST [place] ([facility]) Name Value Range Interpretation Code Description Data Marla rce(s) Supporting Document(s) lipase 341 U/L 73-393 Lipase [facility] ([facility]) ID Date Data Source [id number] 06/03/2020 11:25:00 AM EST [place] ([facility]) Name Value Range Interpretation Code Description Data Marla rce(s) Supporting Document(s) glucose, fasting 96 mg/dL 70-100 Glucose, Fasting AT [facility] ([facility]) blood urea nitrogen 13 mg/dL 7-18 Blood Urea Nitro gen [facility] ([facility]) creatinine for GFR 0.83 mg/dL 0.70-1.30 Creatinine for GF R [facility] ([facility]) sodium level 135 mEq/L 136-145 Below low normal Sodium Level [facility] ([facility]) glomerular filtration rate > 60.0 >60 Glomerula r Filtration Rate [facility] ([facility]) potassium serum 3.9 mEq/L 3.5-5.1 Potassium Serum [facility] ([facility]) chloride level 101 mEq/L 98-107 Chloride Level [place] ([facility]) carbon dioxide level 26 mEq/L 21-32 Carbon Dioxide Level [facility] ([facility]) anion gap 8 mEq/L 8-16 Anion Gap [place] ([facility]) calcium level 8.5 mg/dL 8.5-10.1 Calcium Level [place] ( [facility]) ID Date Data Source [id number] 06/03/2020 11:25:00 AM EST [place] ([facility]) Name Value Range Interpretation Code Description Data Marla rce(s) Supporting Document(s) alkaline phosphatase 160 U/L 45-117 Above high normal Alkaline Phosphatase [facility] ([facility]) ALT/SGPT 113 U/L 12-78 Above high normal ALT/SGPT [facility] ([facility]) AST/SGOT 56 U/L 7-37 Above high normal AST/SGOT [facility] ([facility]) total protein 6.9 gm/dL 6.4-8.2 Total Protein [facility] ( [facility]) bilirubin,direct 3.0 mg/dL 0.0-0.2 Above high normal Bilirubin,di rect [facility] ([facility]) bilirubin,total 4.7 mg/dL 0.2-1.0 Bilirubin,total [facility] ([facility]) albumin 3.2 gm/dL 3.2-5.2 Albumin [facility] ([facility]) albumin/globulin ratio Albumin/globu mar Ratio [facility] ([facility]) ID Date Data Source [id number] 06/03/2020 11:25:00 AM EST [facility] ([facility]) Name Value Range Interpretation Code Description Data Marla rce(s) Supporting Document(s) white blood count 15.9 10 4.0-10.0 Above high normal White Blood Count [facility] ([facility]) red blood count 4.85 10 4.30-6.10 Red Blood Count [facility] NA ([facility]) hemoglobin 14.2 g/dL 13.5-17.5 Hemoglobin [facility] ([facility]) mean corpuscular hemoglobin 29.3 pg 27.0-33.0 Mean Cor puscular Hemoglobin [facility] ([facility]) mean corpuscular volume 85.4 fL 80.0-96.0 Mean Corpusc ular Volume [facility] ([facility]) hematocrit 41.4 % 42.0-52.0 Below low normal Hematocrit [facility] ( [facility] [facility]) mean corpuscular HGB conc 34.3 g/dL 32.0-36.5 Mean Corpu scular HGB Conc GARERT ([facility]) platelet count, automated 285 10 150-450 Platelet C ount, Automated GARRET ([facility]) red cell distribution width 13.5 % 11.5-14.5 Red Cell Distribution Width GARRET ([facility]) neutrophils % 76.9 % 36.0-66.0 Above high normal Neutrophils % A THENA ([facility]) lymph % 8.0 % 24.0-44.0 Below low normal Lymph % GARRET ( [facility]) mono % 13.0 % 0.0-5.0 Above high normal [place] % GARRET ([facility]) immature granulocyte % 1.1 % 0-3.0 Immature Gran ulocyte % GARRET ([facility]) eos % 0.8 % 0.0-3.0 Eos % GARRET ([facility]) baso % 0.2 % 0.0-1.0 Baso % GARRET ([facility]) nucleated red blood cell % 0.0 % 0-0 Nucleated Red Blood Cell % GARRET ([facility]) lymph # 1.3 10 1.5-5.0 Below low normal Lymph # GARRET ( [facility]) neutrophils # 12.2 10 1.5-8.5 Above high normal Neutrophils # A THENA ([facility]) mono # 2.1 10 0.0-0.8 Above high normal [place] # GARRET ([facility]) eos # 0.1 10 0.0-0.5 Eos # GARRET ([facility]) baso # 0.0 10 0.0-0.2 Baso # GARRET ([facility]) ID Date Data Source [id number] 06/03/2020 11:25:00 AM EST GARRET ([facility]) Name Value Range Interpretation Code Description Data Marla rce(s) Supporting Document(s) lipase 341 U/L 73-393 Lipase GARRET ([facility]) ID Date Data Source [id number] 06/03/2020 11:25:00 AM EST GARRET ([facility]) Name Value Range Interpretation Code Description Data Marla rce(s) Supporting Document(s) glucose, fasting 96 mg/dL 70-100 Glucose, Fasting AT [facility]) blood urea nitrogen 13 mg/dL 7-18 Blood Urea Nitro gen GARRET ([facility]) creatinine for GFR 0.83 mg/dL 0.70-1.30 Creatinine for GF R GARRET ([facility]) sodium level 135 mEq/L 136-145 Below low normal Sodium Level ATHE NA ([facility]) potassium serum 3.9 mEq/L 3.5-5.1 Potassium Serum ATHE NA ([facility]) glomerular filtration rate > 60.0 >60 Glomerula r Filtration Rate GARRET ([facility]) anion gap 8 mEq/L 8-16 Anion Gap GARRET ([facility]) chloride level 101 mEq/L 98-107 Chloride Level GARRET ([facility]) carbon dioxide level 26 mEq/L 21-32 Carbon Dioxide Level GARRET ([facility]) calcium level 8.5 mg/dL 8.5-10.1 Calcium Level GARRET ( [facility]) ID Date Data Source [id number] 06/03/2020 11:25:00 AM EST GARRET ([facility]) Name Value Range Interpretation Code Description Data Marla rce(s) Supporting Document(s) AST/SGOT 56 U/L 7-37 Above high normal AST/SGOT GAR[facility] ([facility]) alkaline phosphatase 160 U/L 45-117 Above high normal Alkaline Phosphatase GARRET ([facility]) ALT/SGPT 113 U/L 12-78 Above high normal ALT/SGPT G[facility] ([facility]) bilirubin,total 4.7 mg/dL 0.2-1.0 Bilirubin,total ATHE NA ([facility]) bilirubin,direct 3.0 mg/dL 0.0-0.2 Above high normal Bilirubin,di rect GARRET ([facility]) total protein 6.9 gm/dL 6.4-8.2 Total Protein GARRET ( [facility]) albumin 3.2 gm/dL 3.2-5.2 Albumin GAR[facility] ([facility]) albumin/globulin ratio Albumin/globu mar Ratio GARRET ([facility]) ID Date Data Source [id number] 06/03/2020 11:25:00 AM EST GARRET ([facility]) Name Value Range Interpretation Code Description Data Marla rce(s) Supporting Document(s) white blood count 15.9 10 4.0-10.0 Above high normal White Blood Count GARRET ([facility]) red blood count 4.85 10 4.30-6.10 Red Blood Count ATHE NA ([facility]) hematocrit 41.4 % 42.0-52.0 Below low normal Hematocrit GARRET ( [facility]) hemoglobin 14.2 g/dL 13.5-17.5 Hemoglobin GARRET ([facility]) mean corpuscular HGB conc 34.3 g/dL 32.0-36.5 Mean Corpu scular HGB Conc GARRET ([facility]) mean corpuscular hemoglobin 29.3 pg 27.0-33.0 Mean Cor puscular Hemoglobin GARRET ([facility]) mean corpuscular volume 85.4 fL 80.0-96.0 Mean Corpusc ular Volume GARRET ([facility]) red cell distribution width 13.5 % 11.5-14.5 Red Cell Distribution Width GAR[facility] ([facility]) platelet count, automated 285 10 150-450 Platelet C ount, Automated GAR[facility] ([facility]) neutrophils % 76.9 % 36.0-66.0 Above high normal Neutrophils % A [facility] ([facility]) mono % 13.0 % 0.0-5.0 Above high normal [place] % [place] ([facility]) lymph % 8.0 % 24.0-44.0 Below low normal Lymph % GARRET ( [facility]) baso % 0.2 % 0.0-1.0 Baso % G[facility]RET ([facility]) eos % 0.8 % 0.0-3.0 Eos % G[facility]RET ([facility]) immature granulocyte % 1.1 % 0-3.0 Immature Gran ulocyte % G[facility]RET ([facility]) neutrophils # 12.2 10 1.5-8.5 Above high normal Neutrophils # A [facility] ([facility]) nucleated red blood cell % 0.0 % 0-0 Nucleated Red Blood Cell % GARRET ([facility]) mono # 2.1 10 0.0-0.8 Above high normal [place] # GARRET ([facility]) lymph # 1.3 10 1.5-5.0 Below low normal Lymph # GARRET ( [facility]) eos # 0.1 10 0.0-0.5 Eos # [facility]RET ([facility]) baso # 0.0 10 0.0-0.2 Baso # [facility] ([facility]) ID Date Data Source [id number] 06/02/2020 11:40:00 AM EST GARRET ([facility]) Name Value Range Interpretation Code Description Data Marla rce(s) Supporting Document(s) glucose, fasting 76 mg/dL 70-100 Glucose, Fasting AT [facility] ([facility]) creatinine for GFR 1.05 mg/dL 0.70-1.30 Creatinine for GF R GARRET ([facility]) blood urea nitrogen 16 mg/dL 7-18 Blood Urea Nitro gen GARRET ([facility]) potassium serum 4.0 mEq/L 3.5-5.1 Potassium Serum ATHE NA ([facility]) sodium level 137 mEq/L 136-145 Sodium Level [facility] ([facility]) glomerular filtration rate > 60.0 >60 Glomerula r Filtration Rate GARRET ([facility]) anion gap 8 mEq/L 8-16 Anion Gap G[facility] ([facility]) calcium level 9.0 mg/dL 8.5-10.1 Calcium Level GARRET ( [facility]) chloride level 101 mEq/L 98-107 Chloride Level G[facility]RET ([facility]) carbon dioxide level 28 mEq/L 21-32 Carbon Dioxide Level G[facility]RET ([facility]) AST/SGOT 67 U/L 7-37 Above high normal AST/SGOT G[facility] ([facility]) ALT/SGPT 159 U/L 12-78 Above high normal ALT/SGPT [facility] ([facility]) alkaline phosphatase 178 U/L 45-117 Above high normal Alkaline Phosphatase GARRET ([facility]) bilirubin,total 9.9 mg/dL 0.2-1.0 Above high normal Bilirubin,tot al GARRET ([facility]) albumin/globulin ratio Albumin/globu mar Ratio GARRET ([facility]) total protein 7.3 gm/dL 6.4-8.2 Total Protein G[facility] ( [facility]) albumin 3.8 gm/dL 3.2-5.2 Albumin [place] ([facility]) ID Date Data Source [id number] 06/02/2020 11:40:00 AM EST GARRET ([facility]) Name Value Range Interpretation Code Description Data Marla rce(s) Supporting Document(s) red blood count 5.52 10 4.30-6.10 Red Blood Count ATHE NA ([facility]) white blood count 16.7 10 4.0-10.0 Above high normal White Blood Count GARRET ([facility]) hematocrit 47.8 % 42.0-52.0 Hematocrit G[facility]RET ([facility]) mean corpuscular volume 86.6 fL 80.0-96.0 Mean Corpusc ular Volume GARRET ([facility]) hemoglobin 15.7 g/dL 13.5-17.5 Hemoglobin G[facility]RET ([facility]) mean corpuscular hemoglobin 28.4 pg 27.0-33.0 Mean Cor puscular Hemoglobin GARRET ([facility]) red cell distribution width 13.5 % 11.5-14.5 Red Cell Distribution Width GARRET ([facility]) mean corpuscular HGB conc 32.8 g/dL 32.0-36.5 Mean Corpu scular HGB Conc GARRET ([facility]) neutrophils % 76.9 % 36.0-66.0 Above high normal Neutrophils % A THENA ([facility]) platelet count, automated 286 10 150-450 Platelet C ount, Automated G[facility] ([facility]) lymph % 9.5 % 24.0-44.0 Below low normal Lymph % GARRET ( [facility]) mono % 12.3 % 0.0-5.0 Above high normal [place] % G[facility]RET ([facility]) baso % 0.1 % 0.0-1.0 Baso % G[facility]RET ([facility]) eos % 0.5 % 0.0-3.0 Eos % G[facility]RET ([facility]) immature granulocyte % 0.7 % 0-3.0 Immature Gran ulocyte % GARRET ([facility]) lymph # 1.6 10 1.5-5.0 Lymph # G[facility]RET ([facility]) nucleated red blood cell % 0.0 % 0-0 Nucleated Red Blood Cell % G[facility]RET ([facility]) neutrophils # 12.8 10 1.5-8.5 Above high normal Neutrophils # A THENA ([facility]) mono # 2.1 10 0.0-0.8 Above high normal [place] # G[facility]RET ([facility]) baso # 0.0 10 0.0-0.2 Baso # [facility] ([facility]) eos # 0.1 10 0.0-0.5 Eos # [facility] ([facility]) ID Date Data Source [id number] 06/02/2020 11:40:00 AM EST [place] ([facility]) Name Value Range Interpretation Code Description Data Marla rce(s) Supporting Document(s) glucose, fasting 76 mg/dL 70-100 Glucose, Fasting AT [facility] ([facility]) creatinine for GFR 1.05 mg/dL 0.70-1.30 Creatinine for GF R [place] ([facility]) blood urea nitrogen 16 mg/dL 7-18 Blood Urea Nitro gen GARRET ([facility]) glomerular filtration rate > 60.0 >60 Glomerula r Filtration Rate GARRET ([facility]) potassium serum 4.0 mEq/L 3.5-5.1 Potassium Serum ATHE NA ([facility]) sodium level 137 mEq/L 136-145 Sodium Level G[facility] ([facility]) carbon dioxide level 28 mEq/L 21-32 Carbon Dioxide Level G[facility]RET ([facility]) chloride level 101 mEq/L 98-107 Chloride Level GARRET ([facility]) anion gap 8 mEq/L 8-16 Anion Gap G[facility] ([facility]) AST/SGOT 67 U/L 7-37 Above high normal AST/SGOT [facility] ([facility]) calcium level 9.0 mg/dL 8.5-10.1 Calcium Level GARRET ( [facility]) alkaline phosphatase 178 U/L 45-117 Above high normal Alkaline Phosphatase GAR[facility] ([facility]) ALT/SGPT 159 U/L 12-78 Above high normal ALT/SGPT [facility] ([facility]) albumin 3.8 gm/dL 3.2-5.2 Albumin [facility] ([facility]) total protein 7.3 gm/dL 6.4-8.2 Total Protein GARRET ( [facility]) bilirubin,total 9.9 mg/dL 0.2-1.0 Above high normal Bilirubin,tot al G[facility]RET ([facility]) albumin/globulin ratio Albumin/globu mar Ratio G[facility]RET ([facility]) ID Date Data Source [id number] 06/02/2020 11:40:00 AM EST G[facility]RET ([facility]) Name Value Range Interpretation Code Description Data Marla rce(s) Supporting Document(s) white blood count 16.7 10 4.0-10.0 Above high normal White Blood Count GARRET ([facility]) red blood count 5.52 10 4.30-6.10 Red Blood Count ATHE ([facility]) hematocrit 47.8 % 42.0-52.0 Hematocrit G[facility] ([facility]) hemoglobin 15.7 g/dL 13.5-17.5 Hemoglobin G[facility] ([facility]) mean corpuscular hemoglobin 28.4 pg 27.0-33.0 Mean Cor puscular Hemoglobin GARRET ([facility]) mean corpuscular volume 86.6 fL 80.0-96.0 Mean Corpusc ular Volume GARRET ([facility]) mean corpuscular HGB conc 32.8 g/dL 32.0-36.5 Mean Corpu scular HGB Conc GARRET ([facility]) red cell distribution width 13.5 % 11.5-14.5 Red Cell Distribution Width G[facility]RET ([facility]) platelet count, automated 286 10 150-450 Platelet C ount, Automated [facility] ([facility]) neutrophils % 76.9 % 36.0-66.0 Above high normal Neutrophils % A THE[place] ([facility]) lymph % 9.5 % 24.0-44.0 Below low normal Lymph % GARRET ( [facility]) eos % 0.5 % 0.0-3.0 Eos % G[facility] ([facility]) baso % 0.1 % 0.0-1.0 Baso % G[facility] ([facility]) mono % 12.3 % 0.0-5.0 Above high normal [place] % [facility] ([facility]) nucleated red blood cell % 0.0 % 0-0 Nucleated Red Blood Cell % GARRET ([facility]) immature granulocyte % 0.7 % 0-3.0 Immature Gran ulocyte % G[facility]RET ([facility]) lymph # 1.6 10 1.5-5.0 Lymph # G[facility]RET ([facility]) neutrophils # 12.8 10 1.5-8.5 Above high normal Neutrophils # A THENA ([facility]) mono # 2.1 10 0.0-0.8 Above high normal [place] # [facility] ([facility]) eos # 0.1 10 0.0-0.5 Eos # [facility] ([facility]) baso # 0.0 10 0.0-0.2 Baso # [facility] ([facility]) ID Date Data Source [id number] 06/02/2020 11:40:00 AM EST [place] ([facility]) Name Value Range Interpretation Code Description Data Marla rce(s) Supporting Document(s) glucose, fasting 76 mg/dL 70-100 Glucose, Fasting AT [facility]) blood urea nitrogen 16 mg/dL 7-18 Blood Urea Nitro gen [place] ([facility]) glomerular filtration rate > 60.0 >60 Glomerula r Filtration Rate [place] ([facility]) creatinine for GFR 1.05 mg/dL 0.70-1.30 Creatinine for GF R [place] ([facility]) sodium level 137 mEq/L 136-145 Sodium Level G[facility]RET ([facility]) potassium serum 4.0 mEq/L 3.5-5.1 Potassium Serum ATHE NA ([facility]) carbon dioxide level 28 mEq/L 21-32 Carbon Dioxide Level [place] ([facility]) anion gap 8 mEq/L 8-16 Anion Gap [place] ([facility]) chloride level 101 mEq/L 98-107 Chloride Level [facility] ([facility]) calcium level 9.0 mg/dL 8.5-10.1 Calcium Level G[facility] ( [facility]) ALT/SGPT 159 U/L 12-78 Above high normal ALT/SGPT [facility] ([facility]) alkaline phosphatase 178 U/L 45-117 Above high normal Alkaline Phosphatase [facility] ([facility]) AST/SGOT 67 U/L 7-37 Above high normal AST/SGOT [facility] ([facility]) bilirubin,total 9.9 mg/dL 0.2-1.0 Above high normal Bilirubin,tot al [facility] ([facility]) albumin 3.8 gm/dL 3.2-5.2 Albumin [facility] ([facility]) total protein 7.3 gm/dL 6.4-8.2 Total Protein [facility] ( [facility]) albumin/globulin ratio Albumin/globu mar Ratio G[facility]RET ([facility]) ID Date Data Source [id number] 06/02/2020 11:40:00 AM EST [facility] ([facility]) Name Value Range Interpretation Code Description Data Marla rce(s) Supporting Document(s) white blood count 16.7 10 4.0-10.0 Above high normal White Blood Count [facility] ([facility]) red blood count 5.52 10 4.30-6.10 Red Blood Count ATHE ([facility]) hemoglobin 15.7 g/dL 13.5-17.5 Hemoglobin [facility] ([facility]) mean corpuscular volume 86.6 fL 80.0-96.0 Mean Corpusc ular Volume [facility] ([facility]) hematocrit 47.8 % 42.0-52.0 Hematocrit [facility] ([facility]) mean corpuscular HGB conc 32.8 g/dL 32.0-36.5 Mean Corpu scular HGB Conc G[facility] ([facility]) mean corpuscular hemoglobin 28.4 pg 27.0-33.0 Mean Cor puscular Hemoglobin [facility] ([facility]) platelet count, automated 286 10 150-450 Platelet C ount, Automated [facility] ([facility]) red cell distribution width 13.5 % 11.5-14.5 Red Cell Distribution Width [facility] ([facility]) neutrophils % 76.9 % 36.0-66.0 Above high normal Neutrophils % A THE[facility] ([facility]) mono % 12.3 % 0.0-5.0 Above high normal [place] % [facility] ([facility]) lymph % 9.5 % 24.0-44.0 Below low normal Lymph % G[facility] ( [facility]) baso % 0.1 % 0.0-1.0 Baso % [facility] ([facility]) eos % 0.5 % 0.0-3.0 Eos % [facility] ([facility]) nucleated red blood cell % 0.0 % 0-0 Nucleated Red Blood Cell % G[facility]RET ([facility]) immature granulocyte % 0.7 % 0-3.0 Immature Gran ulocyte % G[facility] ([facility]) lymph # 1.6 10 1.5-5.0 Lymph # [facility] ([facility]) neutrophils # 12.8 10 1.5-8.5 Above high normal Neutrophils # A THENA ([facility]) eos # 0.1 10 0.0-0.5 Eos # [facility] ([facility]) mono # 2.1 10 0.0-0.8 Above high normal [place] # [facility] ([facility]) baso # 0.0 10 0.0-0.2 Baso # [facility] ([facility]) ID Date Data Source [id number] 06/02/2020 11:40:00 AM EST [facility] ([facility]) Name Value Range Interpretation Code Description Data Marla rce(s) Supporting Document(s) glucose, fasting 76 mg/dL 70-100 Glucose, Fasting AT [facility] ([facility]) sodium level 137 mEq/L 136-145 Sodium Level [facility] ([facility]) creatinine for GFR 1.05 mg/dL 0.70-1.30 Creatinine for GF R [place] ([facility]) blood urea nitrogen 16 mg/dL 7-18 Blood Urea Nitro gen [facility] ([facility]) glomerular filtration rate > 60.0 >60 Glomerula r Filtration Rate [facility] ([facility]) potassium serum 4.0 mEq/L 3.5-5.1 Potassium Serum ATHE NA ([facility]) calcium level 9.0 mg/dL 8.5-10.1 Calcium Level [facility] ( [facility]) carbon dioxide level 28 mEq/L 21-32 Carbon Dioxide Level G[facility] ([facility]) chloride level 101 mEq/L 98-107 Chloride Level [facility] ([facility]) anion gap 8 mEq/L 8-16 Anion Gap [facility] ([facility]) AST/SGOT 67 U/L 7-37 Above high normal AST/SGOT [facility] ([facility]) total protein 7.3 gm/dL 6.4-8.2 Total Protein [facility] ( [facility]) ALT/SGPT 159 U/L 12-78 Above high normal ALT/SGPT [facility] ([facility]) bilirubin,total 9.9 mg/dL 0.2-1.0 Above high normal Bilirubin,tot al [facility] ([facility]) alkaline phosphatase 178 U/L 45-117 Above high normal Alkaline Phosphatase [facility] ([facility]) albumin/globulin ratio Albumin/globu mar Ratio G[facility] ([facility]) albumin 3.8 gm/dL 3.2-5.2 Albumin [facility] ([facility]) ID Date Data Source [id number] 06/02/2020 11:40:00 AM EST [facility] ([facility]) Name Value Range Interpretation Code Description Data Marla rce(s) Supporting Document(s) hemoglobin 15.7 g/dL 13.5-17.5 Hemoglobin [facility] ([facility]) white blood count 16.7 10 4.0-10.0 Above high normal White Blood Count [facility] ([facility]) red blood count 5.52 10 4.30-6.10 Red Blood Count ATHE ([facility]) mean corpuscular hemoglobin 28.4 pg 27.0-33.0 Mean Cor puscular Hemoglobin [facility] ([facility]) mean corpuscular HGB conc 32.8 g/dL 32.0-36.5 Mean Corpu scular HGB Conc [facility] ([facility]) mean corpuscular volume 86.6 fL 80.0-96.0 Mean Corpusc ular Volume [facility] ([facility]) hematocrit 47.8 % 42.0-52.0 Hematocrit [facility] ([facility]) neutrophils % 76.9 % 36.0-66.0 Above high normal Neutrophils % [facility] ([facility]) lymph % 9.5 % 24.0-44.0 Below low normal Lymph % [facility] ( [facility]) red cell distribution width 13.5 % 11.5-14.5 Red Cell Distribution Width [facility] ([facility]) platelet count, automated 286 10 150-450 Platelet C ount, Automated [facility] ([facility]) baso % 0.1 % 0.0-1.0 Baso % [facility] ([facility]) immature granulocyte % 0.7 % 0-3.0 Immature Gran ulocyte % [facility] ([facility]) eos % 0.5 % 0.0-3.0 Eos % [facility] ([facility]) mono % 12.3 % 0.0-5.0 Above high normal [place] % [facility] ([facility]) nucleated red blood cell % 0.0 % 0-0 Nucleated Red Blood Cell % [facility] ([facility]) neutrophils # 12.8 10 1.5-8.5 Above high normal Neutrophils # A [facility] ([facility]) mono # 2.1 10 0.0-0.8 Above high normal [place] # [facility] ([facility]) lymph # 1.6 10 1.5-5.0 Lymph # [facility] ([facility]) baso # 0.0 10 0.0-0.2 Baso # [facility] ([facility]) eos # 0.1 10 0.0-0.5 Eos # [facility] ([facility]) ID Date Data Source [id number] 06/02/2020 11:40:00 AM EST [place] ([facility]) Name Value Range Interpretation Code Description Data Marla rce(s) Supporting Document(s) glucose, fasting 76 mg/dL 70-100 Glucose, Fasting AT [facility] ([facility]) glomerular filtration rate > 60.0 >60 Glomerula r Filtration Rate [facility] ([facility]) sodium level 137 mEq/L 136-145 Sodium Level [facility] (No [facility]) creatinine for GFR 1.05 mg/dL 0.70-1.30 Creatinine for GF R [facility] ([facility]) blood urea nitrogen 16 mg/dL 7-18 Blood Urea Nitro gen [facility] ([facility]) carbon dioxide level 28 mEq/L 21-32 Carbon Dioxide Level [place] ([facility]) potassium serum 4.0 mEq/L 3.5-5.1 Potassium Serum A[facility] NA ([facility]) chloride level 101 mEq/L 98-107 Chloride Level [place] ([facility]) alkaline phosphatase 178 U/L 45-117 Above high normal Alkaline Phosphatase [place] ([facility]) calcium level 9.0 mg/dL 8.5-10.1 Calcium Level [facility] ( [facility]) AST/SGOT 67 U/L 7-37 Above high normal AST/SGOT [place] ([facility]) anion gap 8 mEq/L 8-16 Anion Gap [place] ([facility]) ALT/SGPT 159 U/L 12-78 Above high normal ALT/SGPT [place] ([facility]) bilirubin,total 9.9 mg/dL 0.2-1.0 Above high normal Bilirubin,tot al [facility] ([facility]) total protein 7.3 gm/dL 6.4-8.2 Total Protein [place] ( [facility]) albumin 3.8 gm/dL 3.2-5.2 Albumin [place] ([facility]) albumin/globulin ratio Albumin/globu mar Ratio [place] ([facility]) ID Date Data Source [id number] 06/02/2020 11:40:00 AM EST [facility] Center) Name Value Range Interpretation Code Description Data Marla rce(s) Supporting Document(s) white blood count 16.7 10 4.0-10.0 Above high normal White Blood Count G[facility] ([facility]) hemoglobin 15.7 g/dL 13.5-17.5 Hemoglobin [facility] ([facility]) red blood count 5.52 10 4.30-6.10 Red Blood Count ATHE NA ([facility]) hematocrit 47.8 % 42.0-52.0 Hematocrit [facility] ([facility]) mean corpuscular hemoglobin 28.4 pg 27.0-33.0 Mean Cor puscular Hemoglobin [facility] ([facility]) mean corpuscular HGB conc 32.8 g/dL 32.0-36.5 Mean Corpu scular HGB Conc [facility] ([facility]) mean corpuscular volume 86.6 fL 80.0-96.0 Mean Corpusc ular Volume G[facility] ([facility]) platelet count, automated 286 10 150-450 Platelet C ount, Automated [facility] ([facility]) red cell distribution width 13.5 % 11.5-14.5 Red Cell Distribution Width G[facility] ([facility]) neutrophils % 76.9 % 36.0-66.0 Above high normal Neutrophils % A THENA ([facility]) mono % 12.3 % 0.0-5.0 Above high normal Faulk % G[facility] ([facility]) lymph % 9.5 % 24.0-44.0 Below low normal Lymph % G[facility] ( [facility]) eos % 0.5 % 0.0-3.0 Eos % [facility] ([facility]) baso % 0.1 % 0.0-1.0 Baso % [facility] ([facility]) immature granulocyte % 0.7 % 0-3.0 Immature Gran ulocyte % [facility] ([facility]) nucleated red blood cell % 0.0 % 0-0 Nucleated Red Blood Cell % [facility] ([facility]) lymph # 1.6 10 1.5-5.0 Lymph # [facility] ([facility]) neutrophils # 12.8 10 1.5-8.5 Above high normal Neutrophils # A THENA ([facility]) mono # 2.1 10 0.0-0.8 Above high normal Faulk # [facility] ([facility]) baso # 0.0 10 0.0-0.2 Baso # [facility] ([facility]) eos # 0.1 10 0.0-0.5 Eos # [facility] ([facility]) ID Date Data Source [id number] 03/05/2020 01:23:55 PM EST [facility] Current Problems: Dental caries (ICD-521 .00) (YEO64-U87.9)[place] teeth impaction (ICD-520.6) (PTE90-T00.1)Chronic constipation (ICD-564.09) (ICD10- K59.09)Epilepsy, unspecified, not intractable, without status epilepticus (GEK94-Z79.909)Autistic disorder (ICD-299.00) (VDH23-B19.0)Acne (ICD-706.1) (HBW57-K97.0)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) (RPE07-P05.0)Encounter for general adult medical examination with abnormal [...] Assessment & Plan Problems:Added: Dental caries (ICD-521.00) (LLK65-I93.9)Medications:SELSUN BLUE DRY SCALP 1 % EXTERNAL SHAMPOOZOLOFT [...] rce(s) Supporting Document(s) ID Date Data Source [id number] 01/28/2020 02:18:51 PM EDT [facility] Patient History Medical History:autismga llstonesconstipationacneseizures-last in 2011Surgical History:Family History:adopted-unknown family historySocial/Personal History: Chief Complaint: Routine CleaningVisit Type: ExamCurrent Problems: [place] teeth impaction (ICD-520.6) (LCI22-A77.1)Chronic constipation (ICD-564.09) (YHG93-L43.09)Epilepsy, unspecified, not intractable, without status epilepticus (CJZ72-W79.909)Autistic disorder (ICD-299.00) (ICD10- F84.0)Acne (ICD-706.1) (ALK95-O87.0)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) (ICD10- L21.0)Encounter for general adult medical examination with abnormal findings (ICD-V70.0) (IBC10-A02.01)Problem list reviewed during this update.Current Medications: SELSUN [...] - CDT Code - Description[E] Missing - [place] and [place] On #17 Surface O Region XR, #32 Surface O Region XR Chart Notes:sahra (Jan 29 2020 4:28PM): CC: Establish careRMH: New pt; Pt is Autistic, Mental delay, Seizure disorder - [facility] ptAllergies: Hay fever, Tetanus toxin, Seroquel, [...] listen very well. Pt kept asking his [facility] staff if he was making green [...] timmy (Jan 30 2020 8:09AM): [facility](-). Special Needs patient. CC: none. Reviewed Xrays. [...] (01/28/2020 2:41 PM): Assessment & Plan Problems:Added: [place] teeth impaction (ICD-520.6) (XOI27-R62.1)Medications:SELSUN BLUE DRY SCALP 1 % EXTERNAL SHAMPOOZOLOFT 100 MG ORAL TABLETINDERAL LA 60 MG ORAL CAPSULE EXTENDED RELEASE 24 HOURBENZOYL PEROXIDE 2.5 % EXTERNAL GELLAMICTAL XR 100 MG ORAL TABLET EXTENDED RELEASE 24 HOURHYDROXYZINE HCL 50 MG ORAL TABLETMIRALAX ORAL POWDER DIFFERIN 0.1 % EXTERNAL CREAMAllergies:BIAXIN (Critical)* TOPOMAX (Critical)* RAGWEED (Critical)* SEROQUEL (Critical)* TETANUS TOXIN (Severe)* HAYFEVER (Moderate)Orders:Oral Surgery Referral [[id number]-29046] Name Value Range Interpretation Code Description Data Marla rce(s) Supporting Document(s) Procedure Social History No Information Vital Signs ID Date Data Source UNK Name Value Range Interpretation Code Description Data Source(s) Diastolic blood pressure 65 mm[Hg] 65 mm[Hg] [facility] ([facility]) Body height 76 [in_i] 76 [in_i] [facility] ([facility]) Body mass index (BMI) [Ratio] 35.8 kg/m2 35.8 k g/m2 [facility] ([facility]) Systolic blood pressure 105 mm[Hg] 105 mm[Hg] A [facility] ([facility]) Body weight 4704 [oz_av] 4704 [oz_av] [facility] ([facility]) Diastolic blood pressure 71 mm[Hg] 71 mm[Hg] [facility] ([facility]) Body height 76 [in_i] 76 [in_i] [facility] ([facility]) Body mass index (BMI) [Ratio] 35 kg/m2 35 kg/ m2 [facility] ([facility]) Systolic blood pressure 104 mm[Hg] 104 mm[Hg] A [facility] ([facility]) Body weight 4600 [oz_av] 4600 [oz_av] [facility] ([facility]) Diastolic blood pressure 71 mm[Hg] 71 mm[Hg] [facility] ([facility]) Body height 76 [in_i] 76 [in_i] [facility] ([facility]) Body mass index (BMI) [Ratio] 35 kg/m2 35 kg/ m2 [facility] ([facility]) Systolic blood pressure 104 mm[Hg] 104 mm[Hg] [facility]) Body weight 4600 [oz_av] 4600 [oz_av] [facility] ([facility]) Systolic blood pressure 107 mm[Hg] 107 mm[Hg] M EDENT ([facility], ) Body weight 122.018 kg 122.018 kg MEDENT ([facility], ) Body surface area Derived from formula 2.47 m2 2.47 m2 MEDENT ([facility], ) Diastolic blood pressure 66 mm[Hg] 66 mm[Hg] MEDENT ([facility], ) Body height 74 [in_i] 74 [in_i] [facility], [facility] 6'2" Body weight 269.00 [lb_av] 269.00 [lb_av] MEDEN T ([facility], ) Body mass index (BMI) [Ratio] 34.5 kg/m2 34.5 k g/m2 MEDGIOVANNY ([facility], ) [place] body weight 190 [lb_av] 190 [lb_av] MEDEN T ([facility], ) Diastolic blood pressure 74 mm[Hg] 74 mm[Hg] [facility] ([facility]) Body height 76 [in_i] 76 [in_i] [facility] ([facility]) Body mass index (BMI) [Ratio] 33 kg/m2 33 kg/ m2 [facility] ([facility]) Systolic blood pressure 119 mm[Hg] 119 mm[Hg] A [facility] ([facility]) Body weight 4342.4 [oz_av] 4342.4 [oz_av] ATHEN A ([facility]) Diastolic blood pressure 74 mm[Hg] 74 mm[Hg] [facility] ([facility]) Body height 76 [in_i] 76 [in_i] [facility] ([facility]) Body mass index (BMI) [Ratio] 33 kg/m2 33 kg/ m2 [facility] ([facility]) Systolic blood pressure 119 mm[Hg] 119 mm[Hg] [facility]) Body weight 4342.4 [oz_av] 4342.4 [oz_av] ATHEN A ([facility]) Diastolic blood pressure 74 mm[Hg] 74 mm[Hg] G[facility] ([facility]) Body height 76 [in_i] 76 [in_i] [facility] ([facility]) Body mass index (BMI) [Ratio] 33 kg/m2 33 kg/ m2 [facility] ([facility]) Systolic blood pressure 119 mm[Hg] 119 mm[Hg] A [facility] ([facility]) Body weight 4342.4 [oz_av] 4342.4 [oz_av] ATHEN A ([facility]) Body height 74 [in_i] 74 [in_i] [facility] 6'2" Body weight 266.00 [lb_av] 266.00 [lb_av] MEDEN T ([facility]) Body mass index (BMI) [Ratio] 34.1 kg/m2 34.1 k g/m2 [facility]) Systolic blood pressure 110 mm[Hg] 110 mm[Hg] M EDENT ([facility]) Diastolic blood pressure 60 mm[Hg] 60 mm[Hg] [facility]) [place] body weight 190 [lb_av] 190 [lb_av] [facility] Body weight 120.658 kg 120.658 kg [facility] ([facility]) Body surface area Derived from formula 2.45 m2 2.45 m2 [facility] ([facility]) Diastolic blood pressure 72 mm[Hg] 72 mm[Hg] [facility] ([facility]) Body height 76 [in_i] 76 [in_i] [facility] ([facility]) Body mass index (BMI) [Ratio] 31.2 kg/m2 31.2 k g/m2 G[facility] ([facility]) Systolic blood pressure 109 mm[Hg] 109 mm[Hg] A THENA ([facility]) Body weight 4102.4 [oz_av] 4102.4 [oz_av] ATHEN A ([facility]) Diastolic blood pressure 72 mm[Hg] 72 mm[Hg] [facility] ([facility]) Body height 76 [in_i] 76 [in_i] [facility] ([facility]) Body mass index (BMI) [Ratio] 31.2 kg/m2 31.2 k g/m2 G[facility] ([facility]) Systolic blood pressure 109 mm[Hg] 109 mm[Hg] A THENA ([facility]) Body weight 4102.4 [oz_av] 4102.4 [oz_av] ATHEN A ([facility]) Diastolic blood pressure 72 mm[Hg] 72 mm[Hg] [facility] ([facility]) Body height 76 [in_i] 76 [in_i] [facility] ([facility]) Body mass index (BMI) [Ratio] 31.2 kg/m2 31.2 k g/m2 [facility] ([facility]) Systolic blood pressure 109 mm[Hg] 109 mm[Hg] A THENA ([facility]) Body weight 4102.4 [oz_av] 4102.4 [oz_av] ATHEN A ([facility]) Body height 76 [in_i] 76 [in_i] [facility] ([facility]) Diastolic blood pressure 72 mm[Hg] 72 mm[Hg] [facility] ([facility]) Body mass index (BMI) [Ratio] 31.2 kg/m2 31.2 k g/m2 [facility] ([facility]) Systolic blood pressure 109 mm[Hg] 109 mm[Hg] A THENA ([facility]) Body weight 4102.4 [oz_av] 4102.4 [oz_av] ATHEN A ([facility]) Diastolic blood pressure 72 mm[Hg] 72 mm[Hg] [facility] ([facility]) Body height 76 [in_i] 76 [in_i] [facility] ([facility]) Body mass index (BMI) [Ratio] 31.2 kg/m2 31.2 k g/m2 [facility] ([facility]) Systolic blood pressure 109 mm[Hg] 109 mm[Hg] A THENA ([facility]) Body weight 4102.4 [oz_av] 4102.4 [oz_av] ATHEN A ([facility]) Systolic blood pressure 123 mm[Hg] 123 mm[Hg] A THENA ([facility]) Diastolic blood pressure 78 mm[Hg] 78 mm[Hg] [facility] ([facility]) Body height 76 [in_i] 76 [in_i] [facility] ([facility]) Body weight 3760 [oz_av] 3760 [oz_av] [facility] ([facility]) Body mass index (BMI) [Ratio] 28.6 kg/m2 28.6 k g/m2 [facility] ([facility]) Body weight 3760 [oz_av] 3760 [oz_av] [facility] ([facility]) Diastolic blood pressure 78 mm[Hg] 78 mm[Hg] [facility] ([facility]) Body height 76 [in_i] 76 [in_i] [facility] ([facility]) Body mass index (BMI) [Ratio] 28.6 kg/m2 28.6 k g/m2 [facility] ([facility]) Systolic blood pressure 123 mm[Hg] 123 mm[Hg] [facility]) Diastolic blood pressure 78 mm[Hg] 78 mm[Hg] [facility] ([facility]) Body height 76 [in_i] 76 [in_i] [facility] ([facility]) Body mass index (BMI) [Ratio] 28.6 kg/m2 28.6 k g/m2 [facility] ([facility]) Systolic blood pressure 123 mm[Hg] 123 mm[Hg] A [facility] ([facility]) Body weight 3760 [oz_av] 3760 [oz_av] [facility] ([facility]) Diastolic blood pressure 78 mm[Hg] 78 mm[Hg] [facility] ([facility]) Body height 76 [in_i] 76 [in_i] [facility] ([facility]) Body mass index (BMI) [Ratio] 28.6 kg/m2 28.6 k g/m2 [facility] ([facility]) Systolic blood pressure 123 mm[Hg] 123 mm[Hg] A THENA ([facility]) Body weight 3760 [oz_av] 3760 [oz_av] [facility] ([facility]) Diastolic blood pressure 78 mm[Hg] 78 mm[Hg] [facility] ([facility]) Body height 76 [in_i] 76 [in_i] [facility] ([facility]) Body mass index (BMI) [Ratio] 28.6 kg/m2 28.6 k g/m2 [facility] ([facility]) Systolic blood pressure 123 mm[Hg] 123 mm[Hg] [facility]) Body weight 3760 [oz_av] 3760 [oz_av] [facility] ([facility]) Diastolic blood pressure 78 mm[Hg] 78 mm[Hg] [facility] ([facility]) Body height 76 [in_i] 76 [in_i] [facility] ([facility]) Body mass index (BMI) [Ratio] 28.6 kg/m2 28.6 k g/m2 [facility] ([facility]) Systolic blood pressure 123 mm[Hg] 123 mm[Hg] A THENA ([facility]) Body weight 3760 [oz_av] 3760 [oz_av] [facility] ([facility]) Patient Treatment Plan of Care Planned Activity Planned Date Details Description Data Source (s) Miralax [facility] ([facility]) adapalene [facility] ([facility]) Miralax [facility] ([facility]) adapalene [facility] ([facility]) adapalene [facility] ([facility])
[2021-02-26] MEDS ORDERED: MIDAZOLAM 5MG/ML 1ML VIAL (J2250 PER 1MG) ONE (11:50)
[2021-02-26] MEDS ORDERED: LIDOCAINE 1% MDV 20ML VIAL SC ONE (11:55)
--- NOTE | 2021-02-26 12:03 | REP ---
INDICATION: laceration. COMPARISON: None. TECHNIQUE: Four images of the left fingers were obtained. FINDINGS: There is a mildly radiopaque foreign body imbedded in the soft tissues of the 2nd finger on its palmar aspect at the level of the distal phalanx. There is a laceration of the soft tissues of the 4th finger, on its palmar aspect, at the level of the distal phalanx. IMPRESSION: 1. Mildly radiopaque foreign body in the soft tissues of the 2nd finger, as described. 2. Laceration of the soft tissues of the 4th finger as described. <Electronically signed by Avila Hussein > 02/26/21 1200
[2021-02-26] MEDS ORDERED: BOOSTRIX/ADACEL VACCINE (DIPHTH/PERTUSS/ACELL/TETANUS) 0.5ML SYR IM ONE (12:05)
[2021-02-26] MEDS ORDERED: DERMABOND TOPICAL SKIN ADHESIVE TOP ONE (13:05)
[2021-02-26] MEDS ORDERED: AUGM875T28 PO (14:53)
[2021-02-26 15:00] VITALS: BP 131/78
--- NOTE | 2021-02-26 17:53 | ED PDOC ---
Post-Departure Follow-Up dr ricks faxed formal report of left fingers for Elizabeth Pineda MD Feb 26, 2021 17:53
== END 2021-02-26 15:14 | disposition home or self-care (01) ==
LOC: M ED 09:48
DX: S61.211A Laceration without foreign body of left index finger without damage to nail, initial encounter (principal); S61.215A Laceration without foreign body of left ring finger without damage to nail, initial encounter; S00.411A Abrasion of right ear, initial encounter; S10.91XA Abrasion of unspecified part of neck, initial encounter; Y92.009 Unspecified place in unspecified non-institutional (private) residence as the place of occurrence of the external cause; W26.8XXA Contact with other sharp object(s), not elsewhere classified, initial encounter; Y93.9 Activity, unspecified; Y99.9 Unspecified external cause status; Z88.1 Allergy status to other antibiotic agents; Z88.7 Allergy status to serum and vaccine; Z88.8 Allergy status to other drugs, medicaments and biological substances
CPT/HCPCS: 12002; 73140; 99284; J2250

== ENCOUNTER 2021-03-08 09:56 | Emergency (ER) | payer MEDICAID ==
[~2021-03-08] VITALS: Ht 182.9 cm; Wt 133.2 kg
--- OUTSIDE RECORDS SUMMARY | 2021-03-08 12:37 | CCD ---
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 Name Role Phone [facility] [phone] Allergies Code Code System Name Reaction Severity Status Onset 20360608 RxNorm Biaxin Active 09/09/2019 Hayfever Active 09/09/2019 Ragweed Active 09/09/2019 17946 RxNorm Seroquel Active 09/09/2019 Tetanus and Diphtheria Toxoids Active [id number] RxNorm Topamax Active Notes: TOPOMAX - Reaction: unable to re gulate body temp | TETANUS TOXIN - Reaction: swollen leg and red Medications Name Status Start Date Stop Date adapalene Completed 07/26/2020 adapalene 0.1 % topical cream APPLY TO THE AFFECTED AREA(S) BY TOPICAL ROUTE ONCE DAILY AT BEDTIME Active Not available amoxicillin 875 mg-potassium clavulanate 125 mg tablet TAKE ONE TABLET BY MOUTH TWICE DAILY Active No t available benzoyl peroxide 2.5 % lotion Active [...] Surgery Information not avai lable 07/13/2020 Electrocardiogram [facility] [address] [place] [address] (Work Place) Results Lab Results Date Name Specimen Result Interpretation Description Value Range Status Address 07/19/2020 Electrocardiogram Rate & Rhythm [facility]: [address] [facility] Qrs [facility]: [address] [facility] [place] Interval [facility]: [address] [facility] QRS Duration Ma in [facility]: [address] [facility] QT Interval [facility]: [address] [facility] 07/14/2020 CBC W/ Auto Diff Blood venous Normal White Blood C ount 5.9 10 4.0-10.0 10 [facility]: 83 0 [facility] Blood venous Normal Red Blood Count 4.93 10 4.30- 6.10 10 [facility]: 830 [facility] Blood venous Normal Hemoglobin 14.1 g/dL 13.5-17. 5 g/dL [facility]: 830 [facility] Blood venous Normal Hematocrit 43.1 % 42.0-52.0 % [facility]: 830 [facility] Blood venous Normal Mean Corpuscular Volume 87.4 fL 80.0-96.0 fL [facility]: 830 [facility] Blood venous Normal Mean Corpuscular Hemoglob in 28.6 pg 27.0-33.0 pg [facility]: 830 [facility] Blood venous Normal Mean Corpuscular HGB Conc 32.7 g/dL 32.0-36.5 g/dL [facility]: 830 [facility] Blood venous Normal Red Cell Distribution Wid th 13.6 % 11.5-14.5 % [facility]: 830 [facility] Blood venous Normal Platelet Count, Automated 256 10 150-450 10 [facility]: [address] [place] [address] Blood venous Normal Neutrophils % 52.4 % 36.0-66. 0 % [facility]: [address] [place] [address] Blood venous Normal Lymph % 37.2 % 24.0-44.0 % [facility]: [address] [place] [address] Blood venous Normal Foard % 6.7 % 2.0-8.0 % [facility]: [address] [place] [address] Blood venous Normal Eos % 2.9 % 0.0-3.0 % [facility]: [address] [place] [address] Blood venous Normal Baso % 0.5 % 0.0-1.0 % [facility]: [address] [place] [address] Blood venous Normal Immature Granulocyte % 0.3 % 0-3.0 % [facility]: [address] [place] [address] Blood venous Normal Nucleated Red Blood Cell % 0. 0 % 0-0 % [facility]: [address] [place] [address] Blood venous Normal Neutrophils # 3.1 10 1.5-8.5 10 [facility]: [address] [place] [address] Blood venous Normal Lymph # 2.2 10 1.5-5.0 10 [facility]: [address] [place] [address] Blood venous Normal Foard # 0.4 10 0.0-0.8 10 [facility]: [address] [place] [address] Blood venous Normal Eos # 0.2 10 0.0-0.5 10 [facility]: [address] [place] [address] Blood venous Normal Baso # 0.0 10 0.0-0.2 10 [facility]: [address] [place] [address] 07/14/2020 CMP, Serum or Plasma Blood venous High Glu cose, Fasting 106 mg/dL 70-100 mg/dL [facility] nter: [address] [place] [address] Blood venous Normal Blood Urea Nitrogen 12 mg/dL 7-18 mg/dL [facility]: [address] [place] [address] Blood venous Normal Creatinine for GFR 0.97 mg/dL 0.70-1.30 mg/dL [facility]: 830 [facility] Blood venous Normal Glomerular Filtration Rate > 60.0 >60 [facility]: 830 [facility] Blood venous Normal Sodium Level 138 mEq/L 136-14 5 mEq/L [facility]: 830 [facility] Blood venous Normal Potassium Serum 3.9 mEq/L 3.5 -5.1 mEq/L [facility]: 830 [facility] Blood venous Normal Chloride Level 105 mEq/L 98-1 07 mEq/L [facility]: 830 [facility] Blood venous Normal Carbon Dioxide Level 27 mEq/L 21-32 mEq/L [facility]: [address] [place] [address] Blood venous Low Anion Gap 6 mEq/L 8-16 mEq/L [facility]: 0 [facility] Blood venous Normal Calcium Level 9.3 mg/dL 8.5-1 0.1 mg/dL [facility]: 830 [facility] Blood venous Normal AST/SGOT 30 U/L 7-37 U/L [facility]: [address] [place] [address] Blood venous Normal ALT/SGPT 52 U/L 12-78 U/L [facility]: [address] [place] [address] Blood venous Normal Alkaline Phosphatase 90 U/L 4 5-117 U/L [facility]: 830 [facility] Blood venous Normal Bilirubin,total 0.5 mg/dL 0.2 -1.0 mg/dL [facility]: 0 [facility] Blood venous Normal Total Protein 7.6 gm/dL 6.4-8 .2 gm/dL [facility]: [address] [place] [address] Blood venous Normal Albumin 4.0 gm/dL 3.2-5.2 gm/ dL [facility]: [address] [place] [address] Blood venous Normal Albumin/globulin Ratio 1.1 [facility]: [address] [place] [address] 07/14/2020 TIBC (Total Iron-binding Capacity), Serum Normal Iron (Fe) 85 ug/dL 65-175 ug/dL [facility] nter: 830 [facility] Normal Total Iron Binding Capacity 324 ug/d L 250-450 ug/dL [facility]: 830 [facility] Normal Percent Saturation 26.2 % 19.7-50.0 % [facility]: 830 [facility] 07/14/2020 Vitamin B12 + Folate, Serum or Blood Blood venous Normal Vitamin B12 Level 574 pg/mL [facility]: 8[address] [facility] Blood venous Normal Folate 5.7 NG/mL [facility]: 0 [facility] 07/14/2020 Ferritin, Serum or Plasma Normal Ferritin 185 NG/mL 26-388 NG/mL [facility]: 83 0 [facility] 07/14/2020 HbA1C (Hemoglobin a1C), Blood Blood venous Normal Hemoglobin a1C 4.9 % [facility]: 8[address] [facility] Blood venous Normal Estimated Average Glucose 94 mg/dL 60-110 mg/dL [facility]: 0 [facility] 06/19/2020 Cbc Normal White Blood Count 5.8 10 4.0-10. 0 10 [facility]: 0 [facility] Low Red Blood Count 3.88 10 4.30-6.10 10 [facility]: 0 [facility] Low Hemoglobin 10.9 g/dL 13.5-17.5 g/dL [facility]: 0 [facility] Low Hematocrit 34.1 % 42.0-52.0 % [facility]: 0 [facility] Normal Mean Corpuscular Volume 87.9 fL 80.0 -96.0 fL [facility]: 0 [facility] Normal Mean Corpuscular Hemoglobin 28.1 pg 27.0-33.0 pg [facility]: 0 [facility] Normal Mean Corpuscular HGB Conc 32.0 g/dL 32.0-36.5 g/dL [facility]: 830 [facility] Normal Red Cell Distribution Width 13.4 % 1 1.5-14.5 % [facility]: 830 [facility] Normal Platelet Count, Automated 211 10 150 -450 10 [facility]: 830 [facility] Normal Nucleated Red Blood Cell % 0.0 % 0- 0 % [facility]: 830 [facility] 06/19/2020 CMP, Serum or Plasma High Glucose, Fastin g 116 mg/dL 70-100 mg/dL [facility]: 83 0 [facility] Normal Blood Urea Nitrogen 8 mg/dL 7-18 mg/ dL [facility]: 830 [facility] Normal Creatinine for GFR 0.70 mg/dL 0.70-1 .30 mg/dL [facility]: 830 [facility] Normal Glomerular Filtration Rate > 60.0 >6 0 [facility]: 830 [facility] Normal Sodium Level 142 mEq/L 136-145 mEq/L [facility]: 830 [facility] Normal Potassium Serum 4.5 mEq/L 3.5-5.1 mE q/L [facility]: 830 [facility] High Chloride Level 109 mEq/L 98-107 mEq/ L [facility]: 830 [facility] Normal Carbon Dioxide Level 25 mEq/L 21-32 mEq/L [facility]: 830 [facility] Normal Anion Gap 8 mEq/L 8-16 mEq/L [facility]: 830 [facility] Low Calcium Level 7.5 mg/dL 8.5-10.1 mg/ dL [facility]: 830 [facility] Normal AST/SGOT 31 U/L 7-37 U/L [facility]: 8[address] [facility] Normal ALT/SGPT 41 U/L 12-78 U/L [facility]: 8[address] [facility] Normal Alkaline Phosphatase 100 U/L 45-117 U/L [facility]: 830 [facility] Normal Bilirubin,total 0.6 mg/dL 0.2-1.0 mg /dL [facility]: 830 [facility] Low Total Protein 5.4 gm/dL 6.4-8.2 gm/d L [facility]: 8[address] [facility] Low Albumin 2.2 gm/dL 3.2-5.2 gm/dL Alessandra l [facility]: 830 [facility] Normal Albumin/globulin Ratio 0.7 [facility]: 830 [facility] 06/19/2020 Phosphorus Level Normal Phosphorus Level 2 .5 mg/dL 2.5-4.9 mg/dL [facility]: 83 0 [facility] 06/19/2020 Magnesium, Serum or Plasma Normal Magnesium Level 2.1 mg/dL 1.8-2.4 mg/dL [facility]: 83 0 [facility] 06/18/2020 CMP, Serum or Plasma Normal Glucose, Fastin g 82 mg/dL 70-100 mg/dL [facility]: 83 0 [facility] Normal Blood Urea Nitrogen 8 mg/dL 7-18 mg/ dL [facility]: 0 [facility] Normal Creatinine for GFR 0.76 mg/dL 0.70-1 .30 mg/dL [facility]: 830 [facility] Normal Glomerular Filtration Rate > 60.0 >6 0 [facility]: 830 [facility] Normal Sodium Level 140 mEq/L 136-145 mEq/L [facility]: 0 [facility] Normal Potassium Serum 4.0 mEq/L 3.5-5.1 mE q/L [facility]: 0 [facility] High Chloride Level 108 mEq/L 98-107 mEq/ L [facility]: 0 [facility] Normal Carbon Dioxide Level 25 mEq/L 21-32 mEq/L [facility]: 0 [facility] Low Anion Gap 7 mEq/L 8-16 mEq/L [facility]: 0 [facility] Low Calcium Level 7.4 mg/dL 8.5-10.1 mg/ dL [facility]: 830 [facility] Normal AST/SGOT 33 U/L 7-37 U/L [facility]: 830 [facility] Normal ALT/SGPT 49 U/L 12-78 U/L [facility]: 830 [facility] Normal Alkaline Phosphatase 98 U/L 45-117 U /L [facility]: [address] [place] [address] Normal Bilirubin,total 0.8 mg/dL 0.2-1.0 mg /dL [facility]: [address] [place] [address] Low Total Protein 5.2 gm/dL 6.4-8.2 gm/d L [facility]: 0 [facility] Low Albumin 2.2 gm/dL 3.2-5.2 gm/dL [facility] 0 [facility] Normal Albumin/globulin Ratio 0.7 [facility]: 0 [facility] 06/18/2020 Lipase, Serum or Plasma Normal Lipase 327 U/L 73-393 U/L [facility]: 0 [facility] 06/18/2020 CBC W/ Auto Diff Normal White Blood Count 5.6 10 4.0-10.0 10 [facility]: [address] [place] [address] Low Red Blood Count 3.53 10 4.30-6.10 10 [facility]: 0 [facility] Low Hemoglobin 10.1 g/dL 13.5-17.5 g/dL [facility]: 0 [facility] Low Hematocrit 31.4 % 42.0-52.0 % [facility]: 0 [facility] Normal Mean Corpuscular Volume 89.0 fL 80.0 -96.0 fL [facility]: 830 [facility] Normal Mean Corpuscular Hemoglobin 28.6 pg 27.0-33.0 pg Final [facility]: [address] [place] [address] Normal Mean Corpuscular HGB Conc 32.2 g/dL 32.0-36.5 g/dL [facility]: [address] [place] [address] Normal Red Cell Distribution Width 13.6 % 1 1.5-14.5 % [facility]: [address] [place] [address] Normal Platelet Count, Automated 175 10 150 -450 10 [facility]: [address] [place] [address] Normal Nucleated Red Blood Cell % 0.0 % 0- 0 % [facility]: [address] [place] [address] 06/18/2020 Differential Panel, Blood High Neutrophils 7 6 % 28-66 % [facility]: [address] [place] [address] Normal Lymphocytes 17 % 16-44 % [facility]: [address] [place] [address] Normal Monocytes 5 % 0-5 % [facility]: [address] [place] [address] Normal Basophils 1 % 0-1 % [facility]: [address] [place] [address] Normal Atypical Lymph 1 % 0-5 % [facility]: [address] [place] [address] Normal RBC Morphology normal [facility]: [address] [place] [address] 06/18/2020 Platelet Count, Estimate, Blood Normal Platelet Estimate normal normal [facility] nter: 830 [facility] 06/18/2020 Respiratory Virus Panel NASOPHARYNX No observ ation recorded. [facility]: [address] [place] [address] 06/17/2020 Cbc High White Blood Count 11.3 10 4.0-10 .0 10 [facility]: 0 [facility] Low Red Blood Count 3.88 10 4.30-6.10 10 [facility]: 0 [facility] Low Hemoglobin 11.0 g/dL 13.5-17.5 g/dL [facility]: 0 [facility] Low Hematocrit 34.6 % 42.0-52.0 % [facility]: 0 [facility] Normal Mean Corpuscular Volume 89.2 fL 80.0 -96.0 fL [facility]: 0 [facility] Normal Mean Corpuscular Hemoglobin 28.4 pg 27.0-33.0 pg [facility]: [address] [place] [address] Low Mean Corpuscular HGB Conc 31.8 g/dL 32.0-36.5 g/dL [facility]: [address] [place] [address] Normal Red Cell Distribution Width 13.7 % 1 1.5-14.5 % [facility]: [address] [place] [address] Normal Platelet Count, Automated 256 10 150 -450 10 [facility]: 0 [facility] Normal Nucleated Red Blood Cell % 0.0 % 0- 0 % [facility]: 0 [facility] 06/17/2020 CMP, Serum or Plasma Normal Glucose, Fastin g 99 mg/dL 70-100 mg/dL [facility]: 83 0 [facility] D Blood Urea Nitrogen 13 mg/dL 7-18 mg /dL [facility]: [address] [place] [address] Normal Creatinine for GFR 1.12 mg/dL 0.70-1 .30 mg/dL [facility]: [address] [place] [address] Normal Glomerular Filtration Rate > 60.0 >6 0 [facility]: 0 [facility] Normal Sodium Level 139 mEq/L 136-145 mEq/L [facility]: 0 [facility] Normal Potassium Serum 4.0 mEq/L 3.5-5.1 mE q/L [facility]: 0 [facility] Normal Chloride Level 107 mEq/L 98-107 mEq/ L [facility]: 0 [facility] Normal Carbon Dioxide Level 25 mEq/L 21-32 mEq/L [facility]: 830 [facility] Low Anion Gap 7 mEq/L 8-16 mEq/L [facility]: 8[address] [facility] Panic Low Calcium Level 7.2 mg/dL 8.5-10.1 mg/dL [facility]: 830 [facility] High AST/SGOT 51 U/L 7-37 U/L [facility]: 8[address] [facility] Normal ALT/SGPT 63 U/L 12-78 U/L [facility]: 830 [facility] Normal Alkaline Phosphatase 98 U/L 45-117 U /L [facility]: 0 [facility] Normal Bilirubin,total 0.9 mg/dL 0.2-1.0 mg /dL [facility]: 0 [facility] Panic Low Total Protein 5.3 gm/dL 6.4-8.2 g m/dL [facility]: 8[address] [facility] Panic Low Albumin 2.3 gm/dL 3.2-5.2 gm/dL F inal [facility]: 0 [facility] Normal Albumin/globulin Ratio 0.8 [facility]: 0 [facility] 06/17/2020 Phosphorus Level Normal Phosphorus Level 2 .8 mg/dL 2.5-4.9 mg/dL [facility]: 83 0 [facility] 06/17/2020 Magnesium, Serum or Plasma Low Magnesium Level 1.7 mg/dL 1.8- 2.4 mg/dL [facility]: 83 0 [facility] 06/16/2020 CBC W/ Auto Diff High White Blood Count 18.6 10 4.0-10.0 10 [facility]: 0 [facility] Normal Red Blood Count 4.43 10 4.30-6.10 10 [facility]: 0 [facility] Low Hemoglobin 12.9 g/dL 13.5-17.5 g/dL [facility]: [address] [place] [address] Low Hematocrit 38.9 % 42.0-52.0 % [facility]: [address] [place] [address] Normal Mean Corpuscular Volume 87.8 fL 80.0 -96.0 fL Final [facility]: [address] [place] [address] Normal Mean Corpuscular Hemoglobin 29.1 pg 27.0-33.0 pg Final [facility]: [address] [place] [address] Normal Mean Corpuscular HGB Conc 33.2 g/dL 32.0-36.5 g/dL Final [facility]: [address] [place] [address] Normal Red Cell Distribution Width 13.3 % 1 1.5-14.5 % [facility]: [address] [place] [address] Normal Platelet Count, Automated 347 10 150 -450 10 [facility]: [address] [place] [address] High Neutrophils % 93.0 % 36.0-66.0 % [facility]: [address] [facility] Low Lymph % 1.7 % 24.0-44.0 % Final [facility]: 8[address] [facility] Normal Foard % 4.0 % 2.0-8.0 % Final [facility]: [address] [place] [address] Normal Eos % 0.0 % 0.0-3.0 % [facility]: [address] [place] [address] Normal Baso % 0.2 % 0.0-1.0 % [facility]: [address] [place] [address] Normal Immature Granulocyte % 1.1 % 0-3.0 % [facility]: [address] [place] [address] Normal Nucleated Red Blood Cell % 0.0 % 0- 0 % [facility]: [address] [place] [address] High Neutrophils # 17.3 10 1.5-8.5 10 [facility]: 0 [facility] Low Lymph # 0.3 10 1.5-5.0 10 [facility]: 0 [facility] Normal Foard # 0.8 10 0.0-0.8 10 [facility]: [address] [facility] Normal Eos # 0.0 10 0.0-0.5 10 [facility]: 8[address] [facility] Normal Baso # 0.0 10 0.0-0.2 10 [facility]: 830 [facility] 06/16/2020 PT/INR High Prothrombin Time 15.5 secon ds 12.5-14.3 seconds [facility]: 8[address] [facility] Normal Inr 1.21 [facility]: 830 [facility] 06/16/2020 Hepatic Function Panel, Serum High AST/SG OT 51 U/L 7-37 U/L [facility]: 830 [facility] Normal ALT/SGPT 74 U/L 12-78 U/L [facility]: 8[address] [facility] Normal Alkaline Phosphatase 116 U/L 45-117 U/L [facility]: 830 [facility] High Bilirubin,total 1.1 mg/dL 0.2-1.0 mg /dL [facility]: 0 [facility] High Bilirubin,direct 0.8 mg/dL 0.0-0.2 m g/dL [facility]: 0 [facility] Normal Total Protein 6.7 gm/dL 6.4-8.2 gm/d L [facility]: 8[address] [facility] Low Albumin 3.1 gm/dL 3.2-5.2 gm/dL Alessandra l [facility]: [address] [facility] Normal Albumin/globulin Ratio 0.9 [facility]: 0 [facility] 06/16/2020 BMP, Serum or Plasma High Glucose, Fastin g 112 mg/dL 70-100 mg/dL [facility]: 83 0 [facility] Normal Blood Urea Nitrogen 8 mg/dL 7-18 mg/ dL [facility]: 0 [facility] High Creatinine for GFR 1.32 mg/dL 0.70-1 .30 mg/dL [facility]: [address] [place] [address] Normal Glomerular Filtration Rate > 60.0 >6 0 [facility]: [address] [place] [address] Normal Sodium Level 136 mEq/L 136-145 mEq/L [facility]: [address] [place] [address] Normal Potassium Serum 4.0 mEq/L 3.5-5.1 mE q/L [facility]: [address] [place] [address] Normal Chloride Level 102 mEq/L 98-107 mEq/ L [facility]: [address] [place] [address] Normal Carbon Dioxide Level 27 mEq/L 21-32 mEq/L [facility]: [address] [place] [address] Low Anion Gap 7 mEq/L 8-16 mEq/L [facility]: [address] [place] [address] Normal Calcium Level 8.9 mg/dL 8.5-10.1 mg/ dL [facility]: [address] [place] [address] 06/16/2020 Lipase, Serum or Plasma High Lipase 450 U/L 73-393 U/L [facility]: [address] [place] [address] 06/04/2020 CBC W/ Auto Diff High White Blood Count 12.9 10 4.0-10.0 10 [facility]: [address] [place] [address] Normal Red Blood Count 4.57 10 4.30-6.10 10 [facility]: [address] [place] [address] Low Hemoglobin 13.0 g/dL 13.5-17.5 g/dL [facility]: [address] [place] [address] Low Hematocrit 39.9 % 42.0-52.0 % [facility]: [address] [place] [address] Normal Mean Corpuscular Volume 87.3 fL 80.0 -96.0 fL [facility]: [address] [place] [address] Normal Mean Corpuscular Hemoglobin 28.4 pg 27.0-33.0 pg [facility]: [address] [place] [address] Normal Mean Corpuscular HGB Conc 32.6 g/dL 32.0-36.5 g/dL Final [facility]: [address] [facility] Normal Red Cell Distribution Width 13.9 % 1 1.5-14.5 % Final [facility]: [address] [place] [address] Normal Platelet Count, Automated 262 10 150 -450 10 [facility]: [address] [facility] High Neutrophils % 73.6 % 36.0-66.0 % [facility]: [address] [facility] Low Lymph % 10.7 % 24.0-44.0 % Final [facility]: [address] [facility] High Foard % 12.9 % 0.0-5.0 % Final [facility]: [address] [place] [address] Normal Eos % 1.8 % 0.0-3.0 % [facility]: [address] [place] [address] Normal Baso % 0.2 % 0.0-1.0 % Final [facility]: [address] [place] [address] Normal Immature Granulocyte % 0.8 % 0-3.0 % [facility]: [address] [place] [address] Normal Nucleated Red Blood Cell % 0.0 % 0- 0 % [facility]: 0 [facility] High Neutrophils # 9.5 10 1.5-8.5 10 [facility]: [address] [facility] Low Lymph # 1.4 10 1.5-5.0 10 Final [facility]: [address] [facility] High Foard # 1.7 10 0.0-0.8 10 [facility]: [address] [place] [address] Normal Eos # 0.2 10 0.0-0.5 10 [facility]: 0 [facility] Normal Baso # 0.0 10 0.0-0.2 10 [facility]: [address] [place] [address] 06/04/2020 CMP, Serum or Plasma Normal Glucose, Fastin g 82 mg/dL 70-100 mg/dL Final [facility]: 83 0 [facility] Normal Blood Urea Nitrogen 15 mg/dL 7-18 mg /dL [facility]: [address] [facility] Normal Creatinine for GFR 0.81 mg/dL 0.70-1 .30 mg/dL [facility]: 8[address] [facility] Normal Glomerular Filtration Rate > 60.0 >6 0 [facility]: [address] [facility] Normal Sodium Level 140 mEq/L 136-145 mEq/L [facility]: [address] [facility] Normal Potassium Serum 4.0 mEq/L 3.5-5.1 mE q/L [facility]: [address] [facility] Normal Chloride Level 103 mEq/L 98-107 mEq/ L [facility]: [address] [facility] Normal Carbon Dioxide Level 29 mEq/L 21-32 mEq/L [facility]: [address] [facility] Normal Anion Gap 8 mEq/L 8-16 mEq/L [facility]: [address] [facility] Normal Calcium Level 8.6 mg/dL 8.5-10.1 mg/ dL [facility]: [address] [facility] Normal AST/SGOT 27 U/L 7-37 U/L [facility]: [address] [facility] Normal ALT/SGPT 77 U/L 12-78 U/L [facility]: [address] [facility] High Alkaline Phosphatase 139 U/L 45-117 U/L [facility]: 8[address] [facility] High Bilirubin,total 2.7 mg/dL 0.2-1.0 mg /dL [facility]: [address] [facility] Normal Total Protein 6.4 gm/dL 6.4-8.2 gm/d L [facility]: [address] [facility] Low Albumin 2.9 gm/dL 3.2-5.2 gm/dL [facility]ess[facility]: 8[address] [facility] Normal Albumin/globulin Ratio 0.8 [facility]: [address] [place] [address] 06/04/2020 Lipase, Serum or Plasma Normal Lipase 281 U/L 73-393 U/L [facility]: [address] [place] [address] 06/03/2020 CBC W/ Auto Diff High White Blood Count 15.9 10 4.0-10.0 10 [facility]: [address] [place] [address] Normal Red Blood Count 4.85 10 4.30-6.10 10 [facility]: [address] [place] [address] Normal Hemoglobin 14.2 g/dL 13.5-17.5 g/dL [facility]: [address] [place] [address] Low Hematocrit 41.4 % 42.0-52.0 % [facility]: [address] [place] [address] Normal Mean Corpuscular Volume 85.4 fL 80.0 -96.0 fL [facility]: [address] [place] [address] Normal Mean Corpuscular Hemoglobin 29.3 pg 27.0-33.0 pg [facility]: [address] [place] [address] Normal Mean Corpuscular HGB Conc 34.3 g/dL 32.0-36.5 g/dL [facility]: [address] [place] [address] Normal Red Cell Distribution Width 13.5 % 1 1.5-14.5 % [facility]: [address] [place] [address] Normal Platelet Count, Automated 285 10 150 -450 10 [facility]: 0 [facility] High Neutrophils % 76.9 % 36.0-66.0 % [facility]: 0 [facility] Low Lymph % 8.0 % 24.0-44.0 % [facility]: 0 [facility] High Foard % 13.0 % 0.0-5.0 % [facility]: 0 [facility] Normal Eos % 0.8 % 0.0-3.0 % [facility]: [address] [place] [address] Normal Baso % 0.2 % 0.0-1.0 % [facility]: [address] [facility] Normal Immature Granulocyte % 1.1 % 0-3.0 % [facility]: 8[address] [facility] Normal Nucleated Red Blood Cell % 0.0 % 0- 0 % [facility]: [address] [facility] High Neutrophils # 12.2 10 1.5-8.5 10 Fin [facility]: [address] [facility] Low Lymph # 1.3 10 1.5-5.0 10 [facility]: [address] [facility] High Foard # 2.1 10 0.0-0.8 10 [facility]: [address] [facility] Normal Eos # 0.1 10 0.0-0.5 10 [facility]: [address] [facility] Normal Baso # 0.0 10 0.0-0.2 10 [facility]: [address] [facility] 06/03/2020 Lactic Acid, Serum or Plasma Normal Lactic Acid Sepsis Protocol 0.9 mmol/L 0.4-2.0 mmol/L [facility]: 0 [facility] 06/03/2020 Hepatic Function Panel, Serum High AST/SG OT 56 U/L 7-37 U/L [facility]: [address] [facility] High ALT/SGPT 113 U/L 12-78 U/L [facility]: [address] [facility] High Alkaline Phosphatase 160 U/L 45-117 U/L [facility]: [address] [facility] Dh Bilirubin,total 4.7 mg/dL 0.2-1.0 mg /dL [facility]: 0 [facility] High Bilirubin,direct 3.0 mg/dL 0.0-0.2 m g/dL [facility]: 0 [facility] Normal Total Protein 6.9 gm/dL 6.4-8.2 gm/d L [facility]: [address] [facility] Normal Albumin 3.2 gm/dL 3.2-5.2 gm/dL Alessandra l [facility]: [address] [facility] Normal Albumin/globulin Ratio 0.9 [facility]: [address] [facility] 06/03/2020 BMP, Serum or Plasma Normal Glucose, Fastin g 96 mg/dL 70-100 mg/dL [facility]: 83 0 [facility] Normal Blood Urea Nitrogen 13 mg/dL 7-18 mg /dL [facility]: 0 [facility] Normal Creatinine for GFR 0.83 mg/dL 0.70-1 .30 mg/dL [facility]: [address] [place] [address] Normal Glomerular Filtration Rate > 60.0 >6 0 [facility]: 0 [facility] Low Sodium Level 135 mEq/L 136-145 mEq/L [facility]: 0 [facility] Normal Potassium Serum 3.9 mEq/L 3.5-5.1 mE q/L [facility]: [address] [facility] Normal Chloride Level 101 mEq/L 98-107 mEq/ L [facility]: 0 [facility] Normal Carbon Dioxide Level 26 mEq/L 21-32 mEq/L [facility]: 0 [facility] Normal Anion Gap 8 mEq/L 8-16 mEq/L [facility]: 0 [facility] Normal Calcium Level 8.5 mg/dL 8.5-10.1 mg/ dL [facility]: [address] [facility] 06/03/2020 Lipase, Serum or Plasma Normal Lipase 341 U/L 73-393 U/L [facility]: 0 [facility] 06/03/2020 SARS CoV 2 RNA (COVID-19), QL, suture winder hand-PCR, Respirat ory Specimen ABNORMAL Sars Covid-19 Amplification positive negative [facility]: [address] [place] [address] 06/03/2020 Culture, Blood BLOOD No observation recorded. [facility]: [address] [facility] 06/03/2020 Culture, Blood BLOOD No observation recorded. [facility]: [address] [facility] 06/02/2020 CBC W/ Auto Diff Blood venous High White Blood C ount 16.7 10 4.0-10.0 10 [facility]: 83 0 [facility] Blood venous Normal Red Blood Count 5.52 10 4.30- 6.10 10 [facility]: [address] [facility] Blood venous Normal Hemoglobin 15.7 g/dL 13.5-17. 5 g/dL [facility]: [address] [facility] Blood venous Normal Hematocrit 47.8 % 42.0-52.0 % [facility]: 0 [facility] Blood venous Normal Mean Corpuscular Volume 86.6 fL 80.0-96.0 fL [facility]: [address] [facility] Blood venous Normal Mean Corpuscular Hemoglob in 28.4 pg 27.0-33.0 pg [facility]: [address] [facility] Blood venous Normal Mean Corpuscular HGB Conc 32.8 g/dL 32.0-36.5 g/dL [facility]: [address] [facility] Blood venous Normal Red Cell Distribution Wid th 13.5 % 11.5-14.5 % [facility]: 0 [facility] Blood venous Normal Platelet Count, Automated 286 10 150-450 10 [facility]: [address] [facility] Blood venous High Neutrophils % 76.9 % 36.0-66. 0 % [facility]: [address] [facility] Blood venous Low Lymph % 9.5 % 24.0-44.0 % [facility]: [address] [facility] Blood venous High Foard % 12.3 % 0.0-5.0 % [facility]: [address] [facility] Blood venous Normal Eos % 0.5 % 0.0-3.0 % [facility]: [address] [place] [address] Blood venous Normal Baso % 0.1 % 0.0-1.0 % [facility]: [address] [place] [address] Blood venous Normal Immature Granulocyte % 0.7 % 0-3.0 % [facility]: [address] [place] [address] Blood venous Normal Nucleated Red Blood Cell % 0. 0 % 0-0 % [facility]: [address] [place] [address] Blood venous High Neutrophils # 12.8 10 1.5-8.5 10 [facility]: [address] [place] [address] Blood venous Normal Lymph # 1.6 10 1.5-5.0 10 [facility]: [address] [place] [address] Blood venous High Foard # 2.1 10 0.0-0.8 10 [facility]: [address] [place] [address] Blood venous Normal Eos # 0.1 10 0.0-0.5 10 [facility]: [address] [place] [address] Blood venous Normal Baso # 0.0 10 0.0-0.2 10 [facility]: [address] [place] [address] 06/02/2020 CMP, Serum or Plasma Blood venous Normal Glu cose, Fasting 76 mg/dL 70-100 mg/dL [facility] nter: [address] [place] [address] Blood venous Normal Blood Urea Nitrogen 16 mg/dL 7-18 mg/dL [facility]: [address] [place] [address] Blood venous Normal Creatinine for GFR 1.05 mg/dL 0.70-1.30 mg/dL [facility]: [address] [place] [address] Blood venous Normal Glomerular Filtration Rate > 60.0 >60 [facility]: [address] [place] [address] Blood venous Normal Sodium Level 137 mEq/L 136-14 5 mEq/L [facility]: [address] [place] [address] Blood venous Normal Potassium Serum 4.0 mEq/L 3.5 -5.1 mEq/L [facility]: [address] [place] [address] Blood venous Normal Chloride Level 101 mEq/L 98-1 07 mEq/L [facility]: [address] [facility] Blood venous Normal Carbon Dioxide Level 28 mEq/L 21-32 mEq/L [facility]: [address] [facility] Blood venous Normal Anion Gap 8 mEq/L 8-16 mEq/L [facility]: [address] [place] [address] Blood venous Normal Calcium Level 9.0 mg/dL 8.5-1 0.1 mg/dL [facility]: [address] [facility] Blood venous High AST/SGOT 67 U/L 7-37 U/L Alessandra l [facility]: [address] [place] [address] Blood venous High ALT/SGPT 159 U/L 12-78 U/L Fi nal [facility]: [address] [facility] Blood venous High Alkaline Phosphatase 178 U/L 45-117 U/L [facility]: [address] [facility] Blood venous High Bilirubin,total 9.9 mg/dL 0.2 -1.0 mg/dL [facility]: [address] [facility] Blood venous Normal Total Protein 7.3 gm/dL 6.4-8 .2 gm/dL [facility]: [address] [place] [address] Blood venous Normal Albumin 3.8 gm/dL 3.2-5.2 gm/ dL [facility]: [address] [place] [address] Blood venous Normal Albumin/globulin Ratio 1.1 [facility]: [address] [facility] Past Encounters 03/04/2021 Laceration of Finger of Left Hand Marco A Mcelroy, RPA-C: [address] [facility] [address] [address], Ph. 01/17/2021 Impacted Cerumen in Right Ear Marco A Mcelroy, RPA-C: [address] [facility] [address], [place] [address], Ph. 09/28/2020 Adult Health Examination; Autistic Disorder; Epilepsy; Obesity; Body Mass Index 30+ - Obesity Marco A D Mcelroy, RPA-C: [address] [facility] [address], [place] [address], Ph. 08/03/2020 Autistic Disorder; Epilepsy Ailyn Falcon MD: [address] [facility] [address], [place] [address], Ph. 07/14/2020 Anemia; Hyperglycemia; History of Cholecystectomy Garfield Julian MD: [address] [place] [address], Ph. 07/01/2020 History of Cholecystectomy; Anemia; Hyperglycemia Letty Wiley PA-C: [address] [facility] [address], [place] [address], Ph. 06/02/2020 Jaundice; Chronic Constipation; Low Back Pain Garfield Julian MD: [address] [facility] [address], [place] [address], Ph. Social History Tobacco Smoking Status Never Smoker Vaccine List None recorded. Plan of Care Reminders Provider Appointments None recorded. Lab None recorded. Referral None recorded. Procedures None recorded. Surgeries None recorded. Imaging None recorded. Vitals 03/04/2021 11:00AM ED FOLLOW-UP Height Weight BMI Blood Pressure 76 in 295 lbs 6 oz 36 kg/m2 139/77 mm[Hg] 01/17/2021 10:10AM SAME DAY 20 Height Weight BMI Blood Pressure 76 in 294 lbs 35.8 kg/m2 105/65 mm[Hg] 09/28/2020 01:20PM ANNUAL EXAM Height Weight BMI Blood Pressure 76 in 287 lbs 8 oz 35 kg/m2 104/71 mm[Hg] 08/03/2020 09:40AM ESTABLISHED [id number] Height Weight BMI Blood Pressure 76 in 271 lbs 6.4 oz 33 kg/m2 119/74 mm[Hg ] 07/01/2020 10:30AM ESTABLISHED [id number] Height Weight BMI Blood Pressure 76 in 256 lbs 6.4 oz 31.2 kg/m2 109/72 mm[Hg ] 06/02/2020 10:20AM ESTABLISHED [id number] Height Weight BMI Blood Pressure 76 in 235 lbs 28.6 kg/m2 123/78 mm[Hg] 09/09/2019 Height Weight BMI Blood Pressure 76 in 270 lbs 32.98 kg/m2 116/80 mm[Hg]"
--- OUTSIDE RECORDS SUMMARY | 2021-03-08 12:40 | CCD ---
Author Author [facility] Organization [facility] Address Unknown Phone Unavailable Care Team Providers Care Cathead Worker Name Role Phone Stefano Julian MD Unavailable [...] Unavailable Unavailable Stefano Julian MD Unavailable Unavailable MCELROY, EMILY MARCO A RPA-C Unavailable Unavailable MCELROY, EMILY MARCO A RPA-C Unavailable Unavailable MCELROY, EMILY MARCO A RPA-C Unavailable Unavailable MCELROY, EMILY MARCO A RPA-C Unavailable Unavailable MCELROY, EMILY MARCO A RPA-C Unavailable Unavailable MCELROY, EMILY MARCO A RPA-C Unavailable Unavailable MCELROY, EMILY MARCO A RPA-C Unavailable Unavailable MCELROY, EMILY MARCO A RPA-C Unavailable Unavailable MCELROY, EMILY MARCO A RPA-C Unavailable Unavailable MCELROY, EMILY MARCO A RPA-C Unavailable Unavailable MCELROY, EMILY MARCO A RPA-C Unavailable Unavailable MCELROY, EMILY MARCO A RPA-C Unavailable Unavailable MCELROY, EMILY MARCO A RPA-C Unavailable Unavailable MCELROY, EMILY MARCO A RPA-C Unavailable Unavailable MCELROY, EMILY MARCO A RPA-C Unavailable Unavailable MCELROY, EMILY MARCO A RPA-C Unavailable Unavailable MCELROY, EMILY MARCO A RPA-C Unavailable Unavailable MCELROY, EMILY MARCO A RPA-C Unavailable Unavailable MCELROY, EMILY MARCO A RPA-C Unavailable Unavailable MCELROY, EMILY MARCO A RPA-C Unavailable Unavailable MCELROY, EMILY MARCO A RPA-C Unavailable Unavailable MCELROY, EMILY MARCO A RPA-C Unavailable Unavailable MCELROY, EMILY MARCO A RPA-C Unavailable Unavailable MCELROY, EMILY MARCO A RPA-C Unavailable Unavailable MCELROY, EMILY MARCO A RPA-C Unavailable Unavailable MCELROY, EMILY MARCO A RPA-C Unavailable Unavailable MCELROY, EMILY MARCO A RPA-C Unavailable Unavailable MCELROY, EMILY MARCO A RPA-C Unavailable Unavailable MCELROY, EMILY MARCO A RPA-C Unavailable Unavailable MCELROY, EMILY MARCO A RPA-C Unavailable Unavailable MCELROY, EMILY MARCO A RPA-C Unavailable Unavailable MCELROY, EMILY MARCO A RPA-C Unavailable Unavailable MCELROY, EMILY MARCO A RPA-C Unavailable Unavailable MCELROY, EMILY MARCO A RPA-C Unavailable Unavailable MCELROY, EMIYL MARCO A RPA-C Unavailable Unavailable MCELROY, EMILY MARCO A RPA-C Unavailable Unavailable MCELROY, EMILY MARCO A RPA-C Unavailable Unavailable MCELROY, EMILY MARCO A RPA-C Unavailable Unavailable MCELROY, EMILY MARCO A RPA-C Unavailable Unavailable MCELROY, EMILY MARCO A RPA-C Unavailable Unavailable MCELROY, EMILY MARCO A RPA-C Unavailable Unavailable MCELROY, EMILY MARCO A RPA-C Unavailable Unavailable MCELROY, EMILY MARCO A RPA-C Unavailable Unavailable MCELROY, EMILY MARCO A RPA-C Unavailable Unavailable MCELROY, EMILY MARCO A RPA-C Unavailable Unavailable MCELROY, EMILY MARCO A RPA-C Unavailable Unavailable MCELROY, EMILY MARCO A RPA-C Unavailable Unavailable MCELROY, EMILY MARCO A RPA-C Unavailable Unavailable MCELROY, EMILY MARCO A RPA-C Unavailable Unavailable MCELROY, EMILY MARCO A RPA-C Unavailable Unavailable MCELROY, EMILY MARCO A RPA-C Unavailable Unavailable MCELROY, EMILY MARCO A RPA-C Unavailable Unavailable MCELROY, EMILY MARCO A RPA-C Unavailable Unavailable MCELROY, EMILY MARCO A RPA-C Unavailable Unavailable MCELROY, EMILY MARCO A RPA-C Unavailable Unavailable MCELROY, EMILY MARCO A RPA-C Unavailable Unavailable MCELROY, EMILY MARCO A RPA-C Unavailable Unavailable MCELROY, EMILY MARCO A RPA-C Unavailable Unavailable MCELROY, EMILY MARCO A RPA-C Unavailable Unavailable MCELROY, EMILY MARCO A RPA-C Unavailable Unavailable MCELROY, EMILY MARCO A RPA-C Unavailable Unavailable MCELROY, EMILY MARCO A RPA-C Unavailable Unavailable MCELROY, EMILY MARCO A RPA-C Unavailable Unavailable MCELROY, EMILY MARCO A RPA-C Unavailable Unavailable MCELROY, EMILY MARCO A RPA-C Unavailable Unavailable MCELROY, EMILY MARCO A RPA-C Unavailable Unavailable MCELROY, EMILY MARCO A RPA-C Unavailable Unavailable MCELROY, EMILY MARCO A RPA-C Unavailable Unavailable MCELROY, EMILY MARCO A RPA-C Unavailable Unavailable MCELROY, EMILY MARCO A RPA-C Unavailable Unavailable MCELROY, EMILY MARCO A RPA-C Unavailable Unavailable MCELROY, EMILY MARCO A RPA-C Unavailable Unavailable MCELROY, EMILY MARCO A RPA-C Unavailable Unavailable MCELROY, EMILY MARCO A RPA-C Unavailable Unavailable MCELROY, EMILY MARCO A RPA-C Unavailable Unavailable MCELROY, EMILY MARCO A RPA-C Unavailable Unavailable MCELROY, EMILY MARCO A RPA-C Unavailable Unavailable MCELROY, EMILY MARCO A RPA-C Unavailable Unavailable MCELROY, EMILY MARCO A RPA-C Unavailable Unavailable MCELROY, EMILY MARCO A RPA-C Unavailable Unavailable MCELROY, EMILY MARCO A RPA-C Unavailable Unavailable MCELROY, EMILY MARCO A RPA-C Unavailable Unavailable MCELROY, EMILY MARCO A RPA-C Unavailable Unavailable MCELROY, EMILY MARCO A RPA-C Unavailable Unavailable MCELROY, EMILY MARCO A RPA-C Unavailable Unavailable MCELROY, EMILY MARCO A RPA-C Unavailable Unavailable REINDL, [...] AGUILAR MD Unavailable Unavailable DEE, O AGUILAR MÉNDEZ [...] J SEAN PA Unavailable Unavailable PRADO, J SENA PA Unavailable Unavailable PRADO, J SEAN PA [...] is protected by Article 27-F of the [facility] Public Health law. If you continue you may have access to information: Regarding HIV / AIDS; Provided by facilities licensed or operated by the [facility] Office of Mental Health; or Provided by the [facility] Office for People With Developmental Disabilities. If such information is present, then the following [facility] mandated warning applies: This information has [...] law may result in a fine or long term sentence or both. A general authorization for the release of medical or other information is NOT sufficient authorization for further disc losure. Encounters Encounter Providers Location Date Indications Data Source(s ) IFEANYI Leos: [address], [place] [address], Ph. Attender: MARCO A SUGGS [facility] Medical 03/04/2021 12:00:00 AM EDT [facility] ([facility]) ALLI LeosC: [address], [place] [address], Ph. Attender: MARCO A SUGGS [facility] Medical 01/17/2021 12:00:00 AM EDT [facility] ([facility]) Marco A Mcelroy RPA-C: [address], [place] [address], Ph. Attender: MARCO A SUGGS [facility] Medical 01/17/2021 12:00:00 AM EDT [facility] ([facility]) Marco A Mcelroy RPA-C: [address], [place] [address], Ph. Attender: MARCO A CARSONC [facility] Medical 09/28/2020 12:00:00 AM EDT [facility] ([facility]) ALLI LeosC: [address], [place] [address], Ph. Attender: MARCO A SUGGS [facility] Medical 09/28/2020 12:00:00 AM EDT [facility] ([facility]) IFEANYI Leos: [address], [place] [address], Ph. Attender: MARCO A SUGGS [facility] Medical 09/28/2020 12:00:00 AM EDT [facility] ([facility]) Outpatient Attender: SU Mackay/Jolene/Natalio/Teodoro fox 09/01/2020 11:30:00 AM EDT [facility] ([facility], ) Outpatient Attender: SEAN BERMUDEZ 09/01 09:05:00 AM EDT - 09/01/2020 09:05:00 AM EDT [facility] Ailyn Falcon MD: [address], [place] [address], Ph. Attender: Ailyn Falcon [facility] Medical 08/03/2020 12:00:00 AM EDT [facility] ([facility]) Ailyn Falcon MD: [address], [place] [address], Ph. Attender: Ailyn Falcon [facility] Medical 08/03/2020 12:00:00 AM EDT [facility] ([facility]) Ailyn Falcon MD: [address], [place] [address], Ph. Attender: Ailyn Falcon [facility] Medical 08/03/2020 12:00:00 AM EDT [facility] ([facility]) Ailyn Falcon MD: [address], [place] [address], Ph. Attender: Ailyn Falcon [facility] Medical 08/03/2020 12:00:00 AM EDT [facility] ([facility]) Office Visit Attender: AGUILAR Mackay/Jolene/Natalio/Re indl 07/14/2020 02:00:00 PM EDT [facility] ([facility]) Garfield Julian MD: [address] [place] [address], Ph. Attender: Garfield Julian MD [facility] Medical 07/14/2020 12:00:00 AM EDT [facility] ([facility]) Garfield Julian MD: [address] [place] [address], Ph. Attender: Garfield Julian MD [facility] Medical 07/14/2020 12:00:00 AM EDT [facility] ([facility]) Garfield Julian MD: [address] [place] [address], Ph. Attender: Garfield Julian MD [facility] Medical 07/14/2020 12:00:00 AM EDT [facility] ([facility]) Garfield Julian MD: [address] [place] [address], Ph. Attender: Garfield Julian MD [facility] Medical 07/14/2020 12:00:00 AM EDT [facility] ([facility]) Garfield Julian MD: [address] [place] [address], Ph. Attender: Garfield Julian MD [facility] Medical 07/14/2020 12:00:00 AM EDT [facility] ([facility]) Letty Wiley PA-C: [address], [place] [address], Ph. Attender: Letty BERMUDEZ [facility] Medical 07/01/2020 12:00:00 AM EST [facility] ([facility]) Letty Wiley PA-C: [address], [place] [address], Ph. Attender: Letty BERMUDEZ [facility] Medical 07/01/2020 12:00:00 AM EST [facility] ([facility]) Letty Wiley PA-C: [address], [place] [address], Ph. Attender: Letty BERMUDEZ [facility] Medical 07/01/2020 12:00:00 AM EST [facility] ([facility]) Letty Wiley PA-C: [address], [place] [address], Ph. Attender: Letty BERMUDEZ [facility] Medical 07/01/2020 12:00:00 AM EST [facility] ([facility]) Letty Wiley PA-C: [address], [place] [address], Ph. Attender: Letty BERMUDEZ [facility] Medical 07/01/2020 12:00:00 AM EST [facility] ([facility]) Letty Wiley PA-C: [address], [place] [address], Ph. Attender: Letty BERMUDEZ [facility] Medical 07/01/2020 12:00:00 AM EST [facility] ([facility]) Garfield Julian MD: [address], [address], [place] [address], Ph. Attender: Garfield Julian MD [facility] Medical 06/02/2020 12:00:00 AM EST [facility] ([facility]) Garfield Julian MD: [address], [address], [place] [address], Ph. Attender: Garfield Julian MD [facility] Medical 06/02/2020 12:00:00 AM EST [facility] ([facility]) Garfield Julian MD: [address], [address], [place] [address], Ph. Attender: Garfield Julian MD [facility] Medical 06/02/2020 12:00:00 AM EST [facility] ([facility]) Garfield Julian MD: [address], [place] [address], Ph. Attender: Garfield Julian MD [facility] Medical 06/02/2020 12:00:00 AM EST [facility] ([facility]) Garfield Julian MD: [address], [place] [address], Ph. Attender: Garfield Julian MD [facility] Medical 06/02/2020 12:00:00 AM EST [facility] ([facility]) Garfield Julian MD: [address], [place] [address], Ph. Attender: Garfield Julian MD [facility] Medical 06/02/2020 12:00:00 AM EST [facility] ([facility]) Garfield Julian MD: [address], [place] [address], Ph. Attender: Garfield Julian MD [facility] Medical 06/02/2020 12:00:00 AM EST [facility] ([facility]) Outpatient Attender: SEAN BERMUDEZ 05/07 09:10:00 AM EST - 05/07/2020 09:10:00 AM EST [facility] Outpatient Attender: SEAN BERMUDEZ Family Practice 05/07 08:00:00 AM EST [facility] ([facility] Outpatient Attender: MARCO A MCELROY RPA-C [facility] 03/05/2020 02:44:01 PM EST [facility] Outpatient Attender: MARCO A MCELROY RPA-C [facility] 03/05/2020 02:44:00 PM EST [facility] Outpatient Attender: MARCO A MCELROY RPA-C [facility] 01/30/2020 08:10:01 AM EDT [facility] Outpatient Attender: MARCO A MCELROY RPA-C [facility] 01/30/2020 08:10:00 AM EDT [facility] Outpatient Attender: SEAN BERMUDEZ 01/05 04:11:00 PM EDT - 01/06/2020 04:11:00 PM EDT [facility] Immunizations Vaccine Date Status Description Data Source(s) COVID-19 VACCINE Moderna 08/19/2020 12:00:00 AM EDT completed [place] Vaccine Series Complete: YESThis Data wa s Submitted to [facility] Via [employer]. COVID-19 VACCINE Moderna 07/22/2020 12:00:00 AM EDT completed [place] Vaccine Series Complete: NOThis Data was Submitted to [facility] Via [employer]. Medications Medication Brand Name Start Date Product Form Dose Route Admi nistrative Instructions Pharmacy Instructions Status Indications Reaction Description Data Source(s) adapalene completed adapalene [facility] ([facility]) adapalene completed adapalene [facility] ([facility]) adapalene completed Differin A THENA ([facility]) adapalene completed adapalene [facility] ([facility]) Miralax completed Miralax ATHE NA ([facility]) Miralax completed Miralax ATHE NA ([facility]) Miralax completed Miralax [facility] NA ([facility]) Insurance Providers Payer name Policy type / Coverage type Policy ID Covered democrat ID Covered democrat's relationship to gould Policy [place] [id number] SP [id number] R MEDICAID -CLINIC [id number] EMEDNY [id number] SP [id number] Medicaid P [id number] S [id number] MEDICAID [id number] SP [id number] Problems, Conditions, and Diagnoses Code Display Name Description Problem Type Effective Dates Data Source(s) F71 Moderate intellectual disabilities Moderate inte llectual disabilities Diagnosis 09/01/2020 09:05:00 AM EDT [facility] F840 Autistic disorder Autistic disorder Diagnosis 09/01/2020 09:05:00 AM EDT [facility] [id number] Low back pain Low Back Pain Problem 06/02/2020 12:00:00 AM EST [facility] ([facility]) 252943201 Low back pain Low Back Pain Problem 06/02/2020 12:00:00 AM EST [facility] ([facility]) 317044032 Low back pain Low Back Pain Problem 06/02/2020 12:00:00 AM EST [facility] ([facility]) 697028796 Low back pain Low Back Pain Problem 06/02/2020 12:00:00 AM EST [facility] ([facility]) 707015598 Low back pain Low Back Pain Problem 06/02/2020 12:00:00 AM EST [facility] ([facility]) 326583304 Low back pain Low Back Pain Problem 06/02/2020 12:00:00 AM EST [facility] ([facility]) 308568117 Low back pain Low Back Pain Problem 06/02/2020 12:00:00 AM EST [facility] ([facility]) 521.00 Dental caries Dental caries 03/05/2020 02:43:30 PM EST [facility] 520.6 Wendel teeth impaction Wendel teeth impaction 01/30/2020 08:09:22 AM EDT [facility] 116884878 Impacted tooth Impacted Tooth Problem 01/28/2020 12:00:00 AM EDT - 08/03/2020 12:00:00 AM EDT [facility] ([facility]) 932450088 Impacted tooth Impacted Tooth Problem 01/28/2020 12:00:00 AM EDT - 08/03/2020 12:00:00 AM EDT [facility] ([facility]) 399474124 Impacted tooth Impacted Tooth Problem 01/28/2020 12:00:00 AM EDT - 08/03/2020 12:00:00 AM EDT [facility] ([facility]) 467621532 Impacted tooth Impacted Tooth Problem 01/28/2020 12:00:00 AM EDT - 08/03/2020 12:00:00 AM EDT [facility] ([facility]) 674471307 Impacted tooth Impacted Tooth Problem 01/28/2020 12:00: 00 AM EDT [facility] ([facility]) 211668065 Impacted tooth Impacted Tooth Problem 01/28/2020 12:00: 00 AM EDT [facility] ([facility]) 267652069 Impacted tooth Impacted Tooth Problem 01/28/2020 12:00: 00 AM EDT [facility] ([facility]) 208459616 Disorder of skin of head Disorder of Skin of Head Prob izzy 09/09/2019 12:00:00 AM EDT - 08/03/2020 12:00:00 AM EDT [facility] ([facility]) 307212847 Procedure by method Procedure by Method Problem 0 09/09/2019 12:00:00 AM EDT - 08/03/2020 12:00:00 AM EDT [facility] ([facility]) 615848335 Disorder of skin of head Disorder of Skin of Head Prob izzy 09/09/2019 12:00:00 AM EDT - 08/03/2020 12:00:00 AM EDT [facility] ([facility]) 563935430 Procedure by method Procedure by Method Problem 0 09/09/2019 12:00:00 AM EDT - 08/03/2020 12:00:00 AM EDT [facility] ([facility]) 287574032 Disorder of skin of head Disorder of Skin of Head Prob izzy 09/09/2019 12:00:00 AM EDT - 08/03/2020 12:00:00 AM EDT [facility] ([facility]) 389085158 Procedure by method Procedure by Method Problem 0 09/09/2019 12:00:00 AM EDT - 08/03/2020 12:00:00 AM EDT [facility] ([facility]) 462293536 Disorder of skin of head Disorder of Skin of Head Prob izzy 09/09/2019 12:00:00 AM EDT - 08/03/2020 12:00:00 AM EDT [facility] ([facility]) 981361972 Procedure by method Procedure by Method Problem 0 09/09/2019 12:00:00 AM EDT - 08/03/2020 12:00:00 AM EDT [facility] ([facility]) Surgeries/Procedures Procedure Description Date Indications Data Source(s) Laparoscopy,Surgical;Cholecystectomy 06/18/2020 12:00: 00 AM EST [facility] ([facility], ) Gallbladder Surgery 05/31/2020 12:00:00 AM EST [facility] ([facility]) Gallbladder Surgery 05/31/2020 12:00:00 AM EST [facility] ([facility]) Gallbladder Surgery 05/31/2020 12:00:00 AM EST [facility] ([facility]) Results ID Date Data Source [id number] 07/19/2020 09:02:00 [facility] Name Value Range Interpretation Code Description Data Marla rce(s) Supporting Document(s) Rate & Rhythm Rate & Rhythm [facility] ([facility]) NM Interval NM Interval [facility] ([facility]) QRS Qrs [facility] ([facility]) QRS Duration QRS Duration [facility] ([facility]) QT Interval QT Interval [facility] ([facility]) ID Date Data Source [id number] 07/19/2020 09:02:00 AM EDT [facility] Name Value Range Interpretation Code Description Data Marla rce(s) Supporting Document(s) Rate & Rhythm Rate & Rhythm [facility] ([facility]) QRS Qrs [facility] ([facility]) NM Interval NM Interval [facility] ([facility]) QRS Duration QRS Duration [facility] ([facility]) QT Interval QT Interval [facility] ([facility]) ID Date Data Source [id number] 07/19/2020 09:02:00 AM EDT [facility] ([facility]) Name Value Range Interpretation Code Description Data Marla rce(s) Supporting Document(s) Rate & Rhythm Rate & Rhythm [facility] ([facility]) QRS Qrs [facility] ([facility]) NM Interval NM Interval [facility] ([facility]) QRS Duration QRS Duration [facility] ([facility]) QT Interval QT Interval [facility] ([facility]) ID Date Data Source [id number] 07/19/2020 09:02:00 AM EDT [facility] ([facility]) Name Value Range Interpretation Code Description Data Marla rce(s) Supporting Document(s) Rate & Rhythm Rate & Rhythm [facility] ([facility]) QRS Qrs [facility] ([facility]) NM Interval NM Interval [facility] ([facility]) QT Interval QT Interval [facility] ([facility]) QRS Duration QRS Duration [facility] ([facility]) ID Date Data Source [id number] 07/19/2020 09:02:00 AM EDT [facility] ([facility]) Name Value Range Interpretation Code Description Data Marla rce(s) Supporting Document(s) Rate & Rhythm Rate & Rhythm [facility] ([facility]) QRS Qrs [facility] ([facility]) NM Interval NM Interval [facility] ([facility]) QRS Duration QRS Duration [facility] ([facility]) QT Interval QT Interval [facility] ([facility]) ID Date Data Source [id number] 07/14/2020 10:00:00 AM EDT [facility] ([facility]) Name Value Range Interpretation Code Description Data Marla rce(s) Supporting Document(s) Hemoglobin A1c/Hemoglobin.total in Blood 4.9 % Hemoglobin a1C [facility] ([facility]) estimated average glucose 94 mg/dL 60-110 Estimated Average Glucose [facility] ([facility]) ID Date Data Source [id number] 07/14/2020 10:00:00 AM ED[facility] Name Value Range Interpretation Code Description Data Marla rce(s) Supporting Document(s) ferritin 185 NG/mL 26-388 Ferritin [facility] ([facility]) ID Date Data Source [id number] 07/14/2020 10:00:00 AM EDT [facility] ([facility]) Name Value Range Interpretation Code Description Data Marla rce(s) Supporting Document(s) vitamin B12 level 574 pg/mL Vitamin B12 Level [facility] ([facility]) folate 5.7 NG/mL Folate [facility] ([facility]) ID Date Data Source [id number] 07/14/2020 10:00:00 AM [facility] Name Value Range Interpretation Code Description Data Marla rce(s) Supporting Document(s) iron (fe) 85 ug/dL 65-175 Iron (Fe) [facility] ([facility]) total iron binding capacity 324 ug/dL 250-450 Total Ir on Binding Capacity [facility] ([facility]) percent saturation 26.2 % 19.7-50.0 Percent Saturatio n [facility] ([facility]) ID Date Data Source [id number] 07/14/2020 10:00:00 AM EDT [facility]) Name Value Range Interpretation Code Description Data Marla rce(s) Supporting Document(s) glucose, fasting 106 mg/dL 70-100 Above high normal Glucose, Fas ting [facility] ([facility]) blood urea nitrogen 12 mg/dL 7-18 Blood Urea Nitro gen [facility] ([facility]) creatinine for GFR 0.97 mg/dL 0.70-1.30 Creatinine for GF R [facility] ([facility]) glomerular filtration rate > 60.0 >60 Glomerula r Filtration Rate [facility] ([facility]) sodium level 138 mEq/L 136-145 Sodium Level [facility] ([facility]) potassium serum 3.9 mEq/L 3.5-5.1 Potassium Serum ATHE NA ([facility]) chloride level 105 mEq/L 98-107 Chloride Level [facility] ([facility]) anion gap 6 mEq/L 8-16 Below low normal Anion [place] ( [facility]) carbon dioxide level 27 mEq/L 21-32 Carbon Dioxide Level G[facility] ([facility]) calcium level 9.3 mg/dL 8.5-10.1 Calcium Level G[facility] ( [facility]) AST/SGOT 30 U/L 7-37 AST/SGOT [facility] ([facility]) ALT/SGPT 52 U/L 12-78 ALT/SGPT [facility] ([facility]) alkaline phosphatase 90 U/L 45-117 Alkaline Phosph atase [facility] ([facility]) bilirubin,total 0.5 mg/dL 0.2-1.0 Bilirubin,total ATHE ([facility]) total protein 7.6 gm/dL 6.4-8.2 Total Protein [facility] ( [facility]) albumin/globulin ratio Albumin/globu mar Ratio [facility] ([facility]) albumin 4.0 gm/dL 3.2-5.2 Albumin [facility] ([facility]) ID Date Data Source [id number] 07/14/2020 10:00:00 AM EDT RO[place] [facility] ([facility]) Name Value Range Interpretation Code Description Data Marla rce(s) Supporting Document(s) white blood count 5.9 10 4.0-10.0 White Blood Count [facility] ([facility]) red blood count 4.93 10 4.30-6.10 Red Blood Count ATHE NA ([facility]) hemoglobin 14.1 g/dL 13.5-17.5 Hemoglobin [facility] ([facility]) hematocrit 43.1 % 42.0-52.0 Hematocrit [facility] ([facility]) mean corpuscular volume 87.4 fL 80.0-96.0 Mean Corpusc ular Volume [facility] ([facility]) mean corpuscular hemoglobin 28.6 pg 27.0-33.0 Mean Cor puscular Hemoglobin [facility] ([facility]) mean corpuscular HGB conc 32.7 g/dL 32.0-36.5 Mean Corpu scular HGB Conc [facility] ([facility]) red cell distribution width 13.6 % 11.5-14.5 Red Cell Distribution Width [facility] ([facility]) neutrophils % 52.4 % 36.0-66.0 Neutrophils % [facility] ( [facility]) platelet count, automated 256 10 150-450 Platelet C ount, Automated [facility] ([facility]) lymph % 37.2 % 24.0-44.0 Lymph % [facility] ([facility]) mono % 6.7 % 2.0-8.0 [place] % [facility] ([facility]) eos % 2.9 % 0.0-3.0 Eos % [facility] ([facility]) baso % 0.5 % 0.0-1.0 Baso % [facility] ([facility]) immature granulocyte % 0.3 % 0-3.0 Immature Gran ulocyte % [facility] ([facility]) nucleated red blood cell % 0.0 % 0-0 Nucleated Red Blood Cell % [facility] ([facility]) neutrophils # 3.1 10 1.5-8.5 Neutrophils # [facility] ( [facility]) lymph # 2.2 10 1.5-5.0 Lymph # [facility] ([facility]) mono # 0.4 10 0.0-0.8 Freeborn # [facility] ([facility]) eos # 0.2 10 0.0-0.5 Eos # [facility] ([facility]) baso # 0.0 10 0.0-0.2 Baso # [facility] ([facility]) ID Date Data Source [id number] 07/14/2020 10:00:00 AM EDT [facility] ([facility]) Name Value Range Interpretation Code Description Data Marla rce(s) Supporting Document(s) estimated average glucose 94 mg/dL 60-110 Estimated Average Glucose [facility] ([facility]) Hemoglobin A1c/Hemoglobin.total in Blood 4.9 % Hemoglobin a1C [facility] ([facility]) ID Date Data Source [id number] 07/14/2020 10:00:00 AM EDT [facility] ([facility]) Name Value Range Interpretation Code Description Data Marla rce(s) Supporting Document(s) ferritin 185 NG/mL 26-388 Ferritin [facility] ([facility]) ID Date Data Source [id number] 07/14/2020 10:00:00 AM EDT [facility] ([facility]) Name Value Range Interpretation Code Description Data Marla rce(s) Supporting Document(s) vitamin B12 level 574 pg/mL Vitamin B12 Level [facility] ([facility]) folate 5.7 NG/mL Folate [facility] ([facility]) ID Date Data Source [id number] 07/14/2020 10:00:00 AM EDT [facility] ([facility]) Name Value Range Interpretation Code Description Data Marla rce(s) Supporting Document(s) iron (fe) 85 ug/dL 65-175 Iron (Fe) [facility] ([facility]) total iron binding capacity 324 ug/dL 250-450 Total Ir on Binding Capacity [facility] ([facility]) percent saturation 26.2 % 19.7-50.0 Percent Saturatio n [facility] ([facility]) ID Date Data Source [id number] 07/14/2020 10:00:00 AM EDT [facility] ([facility]) Name Value Range Interpretation Code Description Data Marla rce(s) Supporting Document(s) glucose, fasting 106 mg/dL 70-100 Above high normal Glucose, Fas ting G[facility] ([facility]) blood urea nitrogen 12 mg/dL 7-18 Blood Urea Nitro gen [facility] ([facility]) creatinine for GFR 0.97 mg/dL 0.70-1.30 Creatinine for GF R GAR[facility] ([facility]) glomerular filtration rate > 60.0 >60 Glomerula r Filtration Rate [facility] ([facility]) sodium level 138 mEq/L 136-145 Sodium Level G[facility] ([facility]) potassium serum 3.9 mEq/L 3.5-5.1 Potassium Serum ATHE NA ([facility]) chloride level 105 mEq/L 98-107 Chloride Level [facility] ([facility]) carbon dioxide level 27 mEq/L 21-32 Carbon Dioxide Level [facility] ([facility]) anion gap 6 mEq/L 8-16 Below low normal Anion Gap G[facility] ( [facility]) calcium level 9.3 mg/dL 8.5-10.1 Calcium Level [facility] ( [facility]) AST/SGOT 30 U/L 7-37 AST/SGOT [facility] ([facility]) ALT/SGPT 52 U/L 12-78 ALT/SGPT [facility] ([facility]) alkaline phosphatase 90 U/L 45-117 Alkaline Phosph atase [facility] ([facility]) bilirubin,total 0.5 mg/dL 0.2-1.0 Bilirubin,total ATHE ([facility]) total protein 7.6 gm/dL 6.4-8.2 Total Protein [facility] ( [facility]) albumin 4.0 gm/dL 3.2-5.2 Albumin [facility] ([facility]) albumin/globulin ratio Albumin/globu mar Ratio [facility] ([facility]) ID Date Data Source [id number] 07/14/2020 10:00:00 AM EDT [facility] ([facility]) Name Value Range Interpretation Code Description Data Marla rce(s) Supporting Document(s) white blood count 5.9 10 4.0-10.0 White Blood Count [facility] ([facility]) red blood count 4.93 10 4.30-6.10 Red Blood Count ATHE NA ([facility]) hemoglobin 14.1 g/dL 13.5-17.5 Hemoglobin [facility] ([facility]) hematocrit 43.1 % 42.0-52.0 Hematocrit [facility] ([facility]) mean corpuscular hemoglobin 28.6 pg 27.0-33.0 Mean Cor puscular Hemoglobin [facility] ([facility]) mean corpuscular volume 87.4 fL 80.0-96.0 Mean Corpusc ular Volume [facility] ([facility]) mean corpuscular HGB conc 32.7 g/dL 32.0-36.5 Mean Corpu scular HGB Conc [facility] ([facility]) red cell distribution width 13.6 % 11.5-14.5 Red Cell Distribution Width [facility] ([facility]) platelet count, automated 256 10 150-450 Platelet C ount, Automated [facility] ([facility]) neutrophils % 52.4 % 36.0-66.0 Neutrophils % [facility] ( [facility]) lymph % 37.2 % 24.0-44.0 Lymph % [facility] ([facility]) mono % 6.7 % 2.0-8.0 Free[place] % [facility] ([facility]) eos % 2.9 % 0.0-3.0 Eos % [facility] ([facility]) baso % 0.5 % 0.0-1.0 Baso % [facility] ([facility]) nucleated red blood cell % 0.0 % 0-0 Nucleated Red Blood Cell % [facility] ([facility]) immature granulocyte % 0.3 % 0-3.0 Immature Gran ulocyte % [facility] ([facility]) neutrophils # 3.1 10 1.5-8.5 Neutrophils # [facility] ( [facility]) mono # 0.4 10 0.0-0.8 Free[place] # [facility] ([facility]) lymph # 2.2 10 1.5-5.0 Lymph # [facility] ([facility]) eos # 0.2 10 0.0-0.5 Eos # [facility] ([facility]) baso # 0.0 10 0.0-0.2 Baso # [facility] ([facility]) ID Date Data Source [id number] 07/14/2020 10:00:00 AM EDT [facility] ([facility]) Name Value Range Interpretation Code Description Data Marla rce(s) Supporting Document(s) Hemoglobin A1c/Hemoglobin.total in Blood 4.9 % Hemoglobin a1C [facility] ([facility]) estimated average glucose 94 mg/dL 60-110 Estimated Average Glucose [facility] ([facility]) ID Date Data Source [id number] 07/14/2020 10:00:00 AM EDT [facility] ([facility]) Name Value Range Interpretation Code Description Data Marla rce(s) Supporting Document(s) ferritin 185 NG/mL 26-388 Ferritin [facility] ([facility]) ID Date Data Source [id number] 07/14/2020 10:00:00 AM EDT [facility] ([facility]) Name Value Range Interpretation Code Description Data Marla rce(s) Supporting Document(s) vitamin B12 level 574 pg/mL Vitamin B12 Level [facility] ([facility]) folate 5.7 NG/mL Folate [facility] ([facility]) ID Date Data Source [id number] 07/14/2020 10:00:00 AM EDT [facility] ([facility]) Name Value Range Interpretation Code Description Data Marla rce(s) Supporting Document(s) iron (fe) 85 ug/dL 65-175 Iron (Fe) [facility] ([facility]) total iron binding capacity 324 ug/dL 250-450 Total Ir on Binding Capacity [facility] ([facility]) percent saturation 26.2 % 19.7-50.0 Percent Saturatio n [facility] ([facility]) ID Date Data Source [id number] 07/14/2020 10:00:00 AM EDT [facility] ([facility]) Name Value Range Interpretation Code Description Data Marla rce(s) Supporting Document(s) glucose, fasting 106 mg/dL 70-100 Above high normal Glucose, Fas ting G[facility] ([facility]) blood urea nitrogen 12 mg/dL 7-18 Blood Urea Nitro gen [facility] ([facility]) creatinine for GFR 0.97 mg/dL 0.70-1.30 Creatinine for GF R G[facility] ([facility]) glomerular filtration rate > 60.0 >60 Glomerula r Filtration Rate [facility] ([facility]) potassium serum 3.9 mEq/L 3.5-5.1 Potassium Serum ATHE NA ([facility]) sodium level 138 mEq/L 136-145 Sodium Level G[facility] ([facility]) chloride level 105 mEq/L 98-107 Chloride Level [facility] ([facility]) anion gap 6 mEq/L 8-16 Below low normal Anion Gap G[facility] ( [facility]) carbon dioxide level 27 mEq/L 21-32 Carbon Dioxide Level [facility] ([facility]) calcium level 9.3 mg/dL 8.5-10.1 Calcium Level [facility] ( [facility]) ALT/SGPT 52 U/L 12-78 ALT/SGPT [facility] ([facility]) AST/SGOT 30 U/L 7-37 AST/SGOT [facility] ([facility]) alkaline phosphatase 90 U/L 45-117 Alkaline Phosph atase [facility] ([facility]) bilirubin,total 0.5 mg/dL 0.2-1.0 Bilirubin,total ATHE NA ([facility]) total protein 7.6 gm/dL 6.4-8.2 Total Protein G[facility] ( [facility]) albumin 4.0 gm/dL 3.2-5.2 Albumin [facility] ([facility]) albumin/globulin ratio Albumin/globu mar Ratio [facility] ([facility]) ID Date Data Source [id number] 07/14/2020 10:00:00 AM EDT G[facility] ([facility]) Name Value Range Interpretation Code Description Data Marla rce(s) Supporting Document(s) white blood count 5.9 10 4.0-10.0 White Blood Count [facility] ([facility]) red blood count 4.93 10 4.30-6.10 Red Blood Count ATHE NA ([facility]) hematocrit 43.1 % 42.0-52.0 Hematocrit [facility] ([facility]) hemoglobin 14.1 g/dL 13.5-17.5 Hemoglobin [facility] ([facility]) mean corpuscular volume 87.4 fL 80.0-96.0 Mean Corpusc ular Volume [facility] ([facility]) mean corpuscular hemoglobin 28.6 pg 27.0-33.0 Mean Cor puscular Hemoglobin [facility] ([facility]) mean corpuscular HGB conc 32.7 g/dL 32.0-36.5 Mean Corpu scular HGB Conc [facility] ([facility]) red cell distribution width 13.6 % 11.5-14.5 Red Cell Distribution Width [facility] ([facility]) platelet count, automated 256 10 150-450 Platelet C ount, Automated G[facility] ([facility]) neutrophils % 52.4 % 36.0-66.0 Neutrophils % [facility] ( [facility]) lymph % 37.2 % 24.0-44.0 Lymph % [facility] ([facility]) mono % 6.7 % 2.0-8.0 Free[place] % [facility] ([facility]) eos % 2.9 % 0.0-3.0 Eos % [facility] ([facility]) baso % 0.5 % 0.0-1.0 Baso % [facility] ([facility]) immature granulocyte % 0.3 % 0-3.0 Immature Gran ulocyte % [facility] ([facility]) neutrophils # 3.1 10 1.5-8.5 Neutrophils # [facility] ( [facility]) nucleated red blood cell % 0.0 % 0-0 Nucleated Red Blood Cell % [facility] ([facility]) lymph # 2.2 10 1.5-5.0 Lymph # [facility] ([facility]) eos # 0.2 10 0.0-0.5 Eos # [facility] ([facility]) mono # 0.4 10 0.0-0.8 Freeborn # [facility] ([facility]) baso # 0.0 10 0.0-0.2 Baso # [facility] ([facility]) ID Date Data Source [id number] 07/14/2020 10:00:00 AM EDT [facility] ([facility]) Name Value Range Interpretation Code Description Data Marla rce(s) Supporting Document(s) Hemoglobin A1c/Hemoglobin.total in Blood 4.9 % Hemoglobin a1C [facility] ([facility]) estimated average glucose 94 mg/dL 60-110 Estimated Average Glucose [facility] ([facility]) ID Date Data Source [id number] 07/14/2020 10:00:00 AM EDT [facility] ([facility]) Name Value Range Interpretation Code Description Data Marla rce(s) Supporting Document(s) ferritin 185 NG/mL 26-388 Ferritin [facility] ([facility]) ID Date Data Source [id number] 07/14/2020 10:00:00 AM EDT [facility] ([facility]) Name Value Range Interpretation Code Description Data Marla rce(s) Supporting Document(s) vitamin B12 level 574 pg/mL Vitamin B12 Level [facility] ([facility]) folate 5.7 NG/mL Folate [facility] ([facility]) ID Date Data Source [id number] 07/14/2020 10:00:00 AM EDT [facility] ([facility]) Name Value Range Interpretation Code Description Data Marla rce(s) Supporting Document(s) iron (fe) 85 ug/dL 65-175 Iron (Fe) [facility] ([facility]) total iron binding capacity 324 ug/dL 250-450 Total Ir on Binding Capacity [facility] ([facility]) percent saturation 26.2 % 19.7-50.0 Percent Saturatio n [facility] ([facility]) ID Date Data Source [id number] 07/14/2020 10:00:00 AM EDT RO[facility] ([facility]) Name Value Range Interpretation Code Description Data Marla rce(s) Supporting Document(s) glucose, fasting 106 mg/dL 70-100 Above high normal Glucose, Fas ting [facility] ([facility]) creatinine for GFR 0.97 mg/dL 0.70-1.30 Creatinine for GF R [facility] ([facility]) blood urea nitrogen 12 mg/dL 7-18 Blood Urea Nitro gen [facility] ([facility]) glomerular filtration rate > 60.0 >60 Glomerula r Filtration Rate [facility] ([facility]) potassium serum 3.9 mEq/L 3.5-5.1 Potassium Serum ATHE NA ([facility]) sodium level 138 mEq/L 136-145 Sodium Level [facility] ([facility]) chloride level 105 mEq/L 98-107 Chloride Level [facility] ([facility]) anion gap 6 mEq/L 8-16 Below low normal Anion Gap G[facility] ( [facility]) carbon dioxide level 27 mEq/L 21-32 Carbon Dioxide Level [facility] ([facility]) calcium level 9.3 mg/dL 8.5-10.1 Calcium Level [facility] ( [facility]) ALT/SGPT 52 U/L 12-78 ALT/SGPT [facility] ([facility]) AST/SGOT 30 U/L 7-37 AST/SGOT [facility] ([facility]) alkaline phosphatase 90 U/L 45-117 Alkaline Phosph atase [facility] ([facility]) bilirubin,total 0.5 mg/dL 0.2-1.0 Bilirubin,total ATHE ([facility]) total protein 7.6 gm/dL 6.4-8.2 Total Protein [facility] ( [facility]) albumin 4.0 gm/dL 3.2-5.2 Albumin [facility] ([facility]) albumin/globulin ratio Albumin/globu mar Ratio [facility] ([facility]) ID Date Data Source [id number] 07/14/2020 10:00:00 AM EDT [facility] ([facility]) Name Value Range Interpretation Code Description Data Marla rce(s) Supporting Document(s) white blood count 5.9 10 4.0-10.0 White Blood Count [facility] ([facility]) hemoglobin 14.1 g/dL 13.5-17.5 Hemoglobin [facility] ([facility]) red blood count 4.93 10 4.30-6.10 Red Blood Count ATHE NA ([facility]) hematocrit 43.1 % 42.0-52.0 Hematocrit [facility] ([facility]) mean corpuscular volume 87.4 fL 80.0-96.0 Mean Corpusc ular Volume [facility] ([facility]) mean corpuscular hemoglobin 28.6 pg 27.0-33.0 Mean Cor puscular Hemoglobin [facility] ([facility]) mean corpuscular HGB conc 32.7 g/dL 32.0-36.5 Mean Corpu scular HGB Conc [facility] ([facility]) red cell distribution width 13.6 % 11.5-14.5 Red Cell Distribution Width [facility] ([facility]) platelet count, automated 256 10 150-450 Platelet C ount, Automated [facility] ([facility]) lymph % 37.2 % 24.0-44.0 Lymph % [facility] ([facility]) neutrophils % 52.4 % 36.0-66.0 Neutrophils % [facility] ( [facility]) mono % 6.7 % 2.0-8.0 Free[place] % [facility] ([facility]) eos % 2.9 % 0.0-3.0 Eos % [facility] ([facility]) baso % 0.5 % 0.0-1.0 Baso % [facility] ([facility]) immature granulocyte % 0.3 % 0-3.0 Immature Gran ulocyte % [facility] ([facility]) nucleated red blood cell % 0.0 % 0-0 Nucleated Red Blood Cell % [facility] ([facility]) neutrophils # 3.1 10 1.5-8.5 Neutrophils # [facility] ( [facility]) lymph # 2.2 10 1.5-5.0 Lymph # [facility] ([facility]) eos # 0.2 10 0.0-0.5 Eos # [facility] ([facility]) mono # 0.4 10 0.0-0.8 Free[place] # [facility] ([facility]) baso # 0.0 10 0.0-0.2 Baso # [facility] ([facility]) ID Date Data Source [id number] 07/14/2020 10:00:00 AM EDT [facility] ([facility]) Name Value Range Interpretation Code Description Data Marla rce(s) Supporting Document(s) Hemoglobin A1c/Hemoglobin.total in Blood 4.9 % Hemoglobin a1C [facility] ([facility]) estimated average glucose 94 mg/dL 60-110 Estimated Average Glucose [facility] ([facility]) ID Date Data Source [id number] 07/14/2020 10:00:00 AM EDT [facility] ([facility]) Name Value Range Interpretation Code Description Data Marla rce(s) Supporting Document(s) ferritin 185 NG/mL 26-388 Ferritin [facility] ([facility]) ID Date Data Source [id number] 07/14/2020 10:00:00 AM EDT [facility] ([facility]) Name Value Range Interpretation Code Description Data Marla rce(s) Supporting Document(s) vitamin B12 level 574 pg/mL Vitamin B12 Level [facility] ([facility]) folate 5.7 NG/mL Folate [facility] ([facility]) ID Date Data Source [id number] 07/14/2020 10:00:00 AM EDT [facility] ([facility]) Name Value Range Interpretation Code Description Data Marla rce(s) Supporting Document(s) iron (fe) 85 ug/dL 65-175 Iron (Fe) [facility] ([facility]) total iron binding capacity 324 ug/dL 250-450 Total Ir on Binding Capacity [facility] ([facility]) percent saturation 26.2 % 19.7-50.0 Percent Saturatio n [facility] ([facility]) ID Date Data Source [id number] 07/14/2020 10:00:00 AM EDT [facility] ([facility]) Name Value Range Interpretation Code Description Data Marla rce(s) Supporting Document(s) glucose, fasting 106 mg/dL 70-100 Above high normal Glucose, Fas ting [facility] ([facility]) blood urea nitrogen 12 mg/dL 7-18 Blood Urea Nitro gen [facility] ([facility]) creatinine for GFR 0.97 mg/dL 0.70-1.30 Creatinine for GF R G[facility] ([facility]) glomerular filtration rate > 60.0 >60 Glomerula r Filtration Rate [facility] ([facility]) sodium level 138 mEq/L 136-145 Sodium Level [facility] ([facility]) potassium serum 3.9 mEq/L 3.5-5.1 Potassium Serum ATH NA ([facility]) chloride level 105 mEq/L 98-107 Chloride Level [facility] ([facility]) carbon dioxide level 27 mEq/L 21-32 Carbon Dioxide Level [facility] ([facility]) anion gap 6 mEq/L 8-16 Below low normal Anion Gap [facility] ( [facility]) AST/SGOT 30 U/L 7-37 AST/SGOT [facility] ([facility]) calcium level 9.3 mg/dL 8.5-10.1 Calcium Level [facility] ( [facility]) ALT/SGPT 52 U/L 12-78 ALT/SGPT [facility] ([facility]) alkaline phosphatase 90 U/L 45-117 Alkaline Phosph atase [facility] ([facility]) bilirubin,total 0.5 mg/dL 0.2-1.0 Bilirubin,total ATHE NA ([facility]) total protein 7.6 gm/dL 6.4-8.2 Total Protein [facility] ( [facility]) albumin 4.0 gm/dL 3.2-5.2 Albumin [facility] ([facility]) albumin/globulin ratio Albumin/globu mar Ratio [facility] ([facility]) ID Date Data Source [id number] 07/14/2020 10:00:00 AM EDT [facility] ([facility]) Name Value Range Interpretation Code Description Data Marla rce(s) Supporting Document(s) white blood count 5.9 10 4.0-10.0 White Blood Count [facility] ([facility]) red blood count 4.93 10 4.30-6.10 Red Blood Count [facility] ([facility]) hemoglobin 14.1 g/dL 13.5-17.5 Hemoglobin [facility] ([facility]) mean corpuscular volume 87.4 fL 80.0-96.0 Mean Corpusc ular Volume [facility] ([facility]) hematocrit 43.1 % 42.0-52.0 Hematocrit [facility] ([facility]) mean corpuscular hemoglobin 28.6 pg 27.0-33.0 Mean Cor puscular Hemoglobin [facility] ([facility]) red cell distribution width 13.6 % 11.5-14.5 Red Cell Distribution Width [facility] ([facility]) mean corpuscular HGB conc 32.7 g/dL 32.0-36.5 Mean Corpu scular HGB Conc [facility] ([facility]) platelet count, automated 256 10 150-450 Platelet C ount, Automated [facility] ([facility]) neutrophils % 52.4 % 36.0-66.0 Neutrophils % [facility] ( [facility]) lymph % 37.2 % 24.0-44.0 Lymph % [facility] ([facility]) eos % 2.9 % 0.0-3.0 Eos % [facility] ([facility]) mono % 6.7 % 2.0-8.0 Freeborn % [facility] ([facility]) baso % 0.5 % 0.0-1.0 Baso % [facility] ([facility]) immature granulocyte % 0.3 % 0-3.0 Immature Gran ulocyte % [facility] ([facility]) nucleated red blood cell % 0.0 % 0-0 Nucleated Red Blood Cell % [facility] ([facility]) neutrophils # 3.1 10 1.5-8.5 Neutrophils # [facility] ( [facility]) lymph # 2.2 10 1.5-5.0 Lymph # [facility] ([facility]) eos # 0.2 10 0.0-0.5 Eos # [facility] ([facility]) mono # 0.4 10 0.0-0.8 Freeborn # [facility] ([facility]) baso # 0.0 10 0.0-0.2 Baso # [facility] ([facility]) ID Date Data Source [id number] 07/13/2020 02:00:00 PM EDT [facility] Name Value Range Interpretation Code Description Data Marla rce(s) Supporting Document(s) SARS coronavirus 2 RNA [Presence] in Res piratory specimen by ANJU with probe detection NEGATIVE [facility] This lab was ordered by [facility] a nd reported by [facility]. ID Date Data Source [id number] 06/19/2020 05:02:00 AM EST [facility] ([facility]) Name Value Range Interpretation Code Description Data Marla rce(s) Supporting Document(s) magnesium level 2.1 mg/dL 1.8-2.4 Magnesium Level [facility] NA ([facility]) ID Date Data Source [id number] 06/19/2020 05:02:00 AM EST [facility] ([facility]) Name Value Range Interpretation Code Description Data Marla rce(s) Supporting Document(s) phosphorus level 2.5 mg/dL 2.5-4.9 Phosphorus Level AT [facility] ([facility]) ID Date Data Source [id number] 06/19/2020 05:02:00 AM EST [facility] ([facility]) Name Value Range Interpretation Code Description Data Marla rce(s) Supporting Document(s) glucose, fasting 116 mg/dL 70-100 Above high normal Glucose, Fas ting [facility] ([facility]) blood urea nitrogen 8 mg/dL 7-18 Blood Urea Nitro gen [facility] ([facility]) creatinine for GFR 0.70 mg/dL 0.70-1.30 Creatinine for GF R [facility] ([facility]) glomerular filtration rate > 60.0 >60 Glomerula r Filtration Rate [facility] ([facility]) potassium serum 4.5 mEq/L 3.5-5.1 Potassium Serum AT[facility] NA ([facility]) sodium level 142 mEq/L 136-145 Sodium Level [facility] ([facility]) chloride level 109 mEq/L 98-107 Above high normal Chloride Level [facility] ([facility]) carbon dioxide level 25 mEq/L 21-32 Carbon Dioxide Level [facility] ([facility]) anion gap 8 mEq/L 8-16 Anion Gap [facility] ([facility]) calcium level 7.5 mg/dL 8.5-10.1 Below low normal Calcium Level AT [facility]) AST/SGOT 31 U/L 7-37 AST/SGOT [facility] ([facility]) alkaline phosphatase 100 U/L 45-117 Alkaline Phosph atase [facility] ([facility]) ALT/SGPT 41 U/L 12-78 ALT/SGPT [facility] ([facility]) bilirubin,total 0.6 mg/dL 0.2-1.0 Bilirubin,total [facility] ([facility]) total protein 5.4 gm/dL 6.4-8.2 Below low normal Total Protein AT [facility]) albumin 2.2 gm/dL 3.2-5.2 Below low normal Albumin [facility] ( [facility]) albumin/globulin ratio Albumin/globu mar Ratio [facility] ([facility]) ID Date Data Source [id number] 06/19/2020 05:02:00 AM EST [facility] ([facility]) Name Value Range Interpretation Code Description Data Marla rce(s) Supporting Document(s) white blood count 5.8 10 4.0-10.0 White Blood Count [facility] ([facility]) red blood count 3.88 10 4.30-6.10 Below low normal Red Blood Coun t [facility] ([facility]) hemoglobin 10.9 g/dL 13.5-17.5 Below low normal Hemoglobin [facility] ( [facility]) hematocrit 34.1 % 42.0-52.0 Below low normal Hematocrit [facility] ( [facility]) mean corpuscular volume 87.9 fL 80.0-96.0 Mean Corpusc ular Volume [facility] ([facility]) mean corpuscular hemoglobin 28.1 pg 27.0-33.0 Mean Cor puscular Hemoglobin [facility] ([facility]) mean corpuscular HGB conc 32.0 g/dL 32.0-36.5 Mean Corpu scular HGB Conc [facility] ([facility]) red cell distribution width 13.4 % 11.5-14.5 Red Cell Distribution Width [facility] ([facility]) platelet count, automated 211 10 150-450 Platelet C ount, Automated [facility] ([facility]) nucleated red blood cell % 0.0 % 0-0 Nucleated Red Blood Cell % [facility] ([facility]) ID Date Data Source [id number] 06/19/2020 05:02:00 AM EST [facility] ([facility]) Name Value Range Interpretation Code Description Data Marla rce(s) Supporting Document(s) magnesium level 2.1 mg/dL 1.8-2.4 Magnesium Level [facility] ([facility]) ID Date Data Source [id number] 06/19/2020 05:02:00 AM EST [facility] ([facility]) Name Value Range Interpretation Code Description Data Marla rce(s) Supporting Document(s) phosphorus level 2.5 mg/dL 2.5-4.9 Phosphorus Level AT [facility] ([facility]) ID Date Data Source [id number] 06/19/2020 05:02:00 AM EST [facility] ([facility]) Name Value Range Interpretation Code Description Data Marla rce(s) Supporting Document(s) glucose, fasting 116 mg/dL 70-100 Above high normal Glucose, Fas ting [facility] ([facility]) blood urea nitrogen 8 mg/dL 7-18 Blood Urea Nitro gen [facility] ([facility]) creatinine for GFR 0.70 mg/dL 0.70-1.30 Creatinine for GF R [facility] ([facility]) glomerular filtration rate > 60.0 >60 Glomerula r Filtration Rate [facility] ([facility]) sodium level 142 mEq/L 136-145 Sodium Level [facility] ([facility]) potassium serum 4.5 mEq/L 3.5-5.1 Potassium Serum [facility] ([facility]) chloride level 109 mEq/L 98-107 Above high normal Chloride Level [facility] ([facility]) anion gap 8 mEq/L 8-16 Anion Gap [facility] ([facility]) carbon dioxide level 25 mEq/L 21-32 Carbon Dioxide Level [facility] ([facility]) calcium level 7.5 mg/dL 8.5-10.1 Below low normal Calcium Level AT [facility] ([facility]) AST/SGOT 31 U/L 7-37 AST/SGOT [facility] ([facility]) ALT/SGPT 41 U/L 12-78 ALT/SGPT [facility] ([facility]) alkaline phosphatase 100 U/L 45-117 Alkaline Phosph atase [facility] ([facility]) bilirubin,total 0.6 mg/dL 0.2-1.0 Bilirubin,total [facility] ([facility]) total protein 5.4 gm/dL 6.4-8.2 Below low normal Total Protein AT [facility] ([facility]) albumin 2.2 gm/dL 3.2-5.2 Below low normal Albumin [facility] ( [facility]) albumin/globulin ratio Albumin/globu mar Ratio [facility] ([facility]) ID Date Data Source [id number] 06/19/2020 05:02:00 AM EST [facility] ([facility]) Name Value Range Interpretation Code Description Data Marla rce(s) Supporting Document(s) white blood count 5.8 10 4.0-10.0 White Blood Count [facility] ([facility]) red blood count 3.88 10 4.30-6.10 Below low normal Red Blood Coun t [facility] ([facility]) hematocrit 34.1 % 42.0-52.0 Below low normal Hematocrit [facility] ( [facility]) hemoglobin 10.9 g/dL 13.5-17.5 Below low normal Hemoglobin [facility] ( [facility]) mean corpuscular volume 87.9 fL 80.0-96.0 Mean Corpusc ular Volume [facility] ([facility]) mean corpuscular hemoglobin 28.1 pg 27.0-33.0 Mean Cor puscular Hemoglobin [facility] ([facility]) mean corpuscular HGB conc 32.0 g/dL 32.0-36.5 Mean Corpu scular HGB Conc [facility] ([facility]) red cell distribution width 13.4 % 11.5-14.5 Red Cell Distribution Width [facility] ([facility]) platelet count, automated 211 10 150-450 Platelet C ount, Automated [facility] ([facility]) nucleated red blood cell % 0.0 % 0-0 Nucleated Red Blood Cell % [facility] ([facility]) ID Date Data Source [id number] 06/19/2020 05:02:00 AM EST [facility] ([facility]) Name Value Range Interpretation Code Description Data Marla rce(s) Supporting Document(s) magnesium level 2.1 mg/dL 1.8-2.4 Magnesium Level [facility] ([facility]) ID Date Data Source [id number] 06/19/2020 05:02:00 AM EST [facility] ([facility]) Name Value Range Interpretation Code Description Data Marla rce(s) Supporting Document(s) phosphorus level 2.5 mg/dL 2.5-4.9 Phosphorus Level AT [facility]) ID Date Data Source [id number] 06/19/2020 05:02:00 AM EST [facility] ([facility]) Name Value Range Interpretation Code Description Data Marla rce(s) Supporting Document(s) glucose, fasting 116 mg/dL 70-100 Above high normal Glucose, Fas ting [facility] ([facility]) blood urea nitrogen 8 mg/dL 7-18 Blood Urea Nitro gen [facility] ([facility]) creatinine for GFR 0.70 mg/dL 0.70-1.30 Creatinine for GF R [facility] ([facility]) glomerular filtration rate > 60.0 >60 Glomerula r Filtration Rate [facility] ([facility]) sodium level 142 mEq/L 136-145 Sodium Level [facility] ([facility]) potassium serum 4.5 mEq/L 3.5-5.1 Potassium Serum [facility] ([facility]) chloride level 109 mEq/L 98-107 Above high normal Chloride Level [facility] ([facility]) carbon dioxide level 25 mEq/L 21-32 Carbon Dioxide Level [facility] ([facility]) anion gap 8 mEq/L 8-16 Anion Gap [facility] ([facility]) calcium level 7.5 mg/dL 8.5-10.1 Below low normal Calcium Level AT [facility]) AST/SGOT 31 U/L 7-37 AST/SGOT [facility] ([facility]) ALT/SGPT 41 U/L 12-78 ALT/SGPT [facility] ([facility]) alkaline phosphatase 100 U/L 45-117 Alkaline Phosph atase [facility] ([facility]) bilirubin,total 0.6 mg/dL 0.2-1.0 Bilirubin,total [facility] ([facility]) total protein 5.4 gm/dL 6.4-8.2 Below low normal Total Protein AT [facility]) albumin 2.2 gm/dL 3.2-5.2 Below low normal Albumin [facility] ( [facility]) albumin/globulin ratio Albumin/globu mar Ratio [facility] ([facility]) ID Date Data Source [id number] 06/19/2020 05:02:00 AM EST [facility] ([facility]) Name Value Range Interpretation Code Description Data Marla rce(s) Supporting Document(s) white blood count 5.8 10 4.0-10.0 White Blood Count [facility] ([facility]) hemoglobin 10.9 g/dL 13.5-17.5 Below low normal Hemoglobin [facility] ( [facility]) red blood count 3.88 10 4.30-6.10 Below low normal Red Blood Coun t [facility] ([facility]) mean corpuscular volume 87.9 fL 80.0-96.0 Mean Corpusc ular Volume [facility] ([facility]) hematocrit 34.1 % 42.0-52.0 Below low normal Hematocrit [facility] ( [facility]) mean corpuscular hemoglobin 28.1 pg 27.0-33.0 Mean Cor puscular Hemoglobin [facility] ([facility]) mean corpuscular HGB conc 32.0 g/dL 32.0-36.5 Mean Corpu scular HGB Conc [facility] ([facility]) red cell distribution width 13.4 % 11.5-14.5 Red Cell Distribution Width [facility] ([facility]) platelet count, automated 211 10 150-450 Platelet C ount, Automated [facility] ([facility]) nucleated red blood cell % 0.0 % 0-0 Nucleated Red Blood Cell % [facility] ([facility]) ID Date Data Source [id number] 06/19/2020 05:02:00 AM EST [facility] ([facility]) Name Value Range Interpretation Code Description Data Marla rce(s) Supporting Document(s) magnesium level 2.1 mg/dL 1.8-2.4 Magnesium Level [facility] ([facility]) ID Date Data Source [id number] 06/19/2020 05:02:00 AM EST [facility] ([facility]) Name Value Range Interpretation Code Description Data Marla rce(s) Supporting Document(s) phosphorus level 2.5 mg/dL 2.5-4.9 Phosphorus Level AT [facility]) ID Date Data Source [id number] 06/19/2020 05:02:00 AM EST [facility] ([facility]) Name Value Range Interpretation Code Description Data Marla rce(s) Supporting Document(s) glucose, fasting 116 mg/dL 70-100 Above high normal Glucose, Fas ting [facility] ([facility]) blood urea nitrogen 8 mg/dL 7-18 Blood Urea Nitro gen [facility] ([facility]) creatinine for GFR 0.70 mg/dL 0.70-1.30 Creatinine for GF R [facility] ([facility]) glomerular filtration rate > 60.0 >60 Glomerula r Filtration Rate [facility] ([facility]) potassium serum 4.5 mEq/L 3.5-5.1 Potassium Serum [facility] ([facility]) sodium level 142 mEq/L 136-145 Sodium Level [facility] ([facility]) chloride level 109 mEq/L 98-107 Above high normal Chloride Level [facility] ([facility]) carbon dioxide level 25 mEq/L 21-32 Carbon Dioxide Level [facility] ([facility]) anion gap 8 mEq/L 8-16 Anion Gap [facility] ([facility]) AST/SGOT 31 U/L 7-37 AST/SGOT [facility] ([facility]) calcium level 7.5 mg/dL 8.5-10.1 Below low normal Calcium Level AT [facility]) ALT/SGPT 41 U/L 12-78 ALT/SGPT [facility] ([facility]) alkaline phosphatase 100 U/L 45-117 Alkaline Phosph atase [facility] ([facility]) bilirubin,total 0.6 mg/dL 0.2-1.0 Bilirubin,total [facility] ([facility]) albumin 2.2 gm/dL 3.2-5.2 Below low normal Albumin [facility] ( [facility]) total protein 5.4 gm/dL 6.4-8.2 Below low normal Total Protein AT [facility] ([facility]) albumin/globulin ratio Albumin/globu mar Ratio [facility] ([facility]) ID Date Data Source [id number] 06/19/2020 05:02:00 AM EST [facility] ([facility]) Name Value Range Interpretation Code Description Data Marla rce(s) Supporting Document(s) white blood count 5.8 10 4.0-10.0 White Blood Count [facility] ([facility]) hemoglobin 10.9 g/dL 13.5-17.5 Below low normal Hemoglobin [facility] ( [facility]) red blood count 3.88 10 4.30-6.10 Below low normal Red Blood Coun t [facility] ([facility]) hematocrit 34.1 % 42.0-52.0 Below low normal Hematocrit [facility] ( [facility]) mean corpuscular volume 87.9 fL 80.0-96.0 Mean Corpusc ular Volume [facility] ([facility]) mean corpuscular hemoglobin 28.1 pg 27.0-33.0 Mean Cor puscular Hemoglobin [facility] ([facility]) mean corpuscular HGB conc 32.0 g/dL 32.0-36.5 Mean Corpu scular HGB Conc [facility] ([facility]) red cell distribution width 13.4 % 11.5-14.5 Red Cell Distribution Width [facility] ([facility]) platelet count, automated 211 10 150-450 Platelet C ount, Automated [facility] ([facility]) nucleated red blood cell % 0.0 % 0-0 Nucleated Red Blood Cell % [facility] ([facility]) ID Date Data Source [id number] 06/19/2020 05:02:00 AM EST [facility] ([facility]) Name Value Range Interpretation Code Description Data Marla rce(s) Supporting Document(s) magnesium level 2.1 mg/dL 1.8-2.4 Magnesium Level [facility] NA ([facility]) ID Date Data Source [id number] 06/19/2020 05:02:00 AM EST [facility] ([facility]) Name Value Range Interpretation Code Description Data Marla rce(s) Supporting Document(s) phosphorus level 2.5 mg/dL 2.5-4.9 Phosphorus Level AT [facility] ([facility]) ID Date Data Source [id number] 06/19/2020 05:02:00 AM EST [facility] ([facility]) Name Value Range Interpretation Code Description Data Marla rce(s) Supporting Document(s) glucose, fasting 116 mg/dL 70-100 Above high normal Glucose, Fas ting [facility] ([facility]) creatinine for GFR 0.70 mg/dL 0.70-1.30 Creatinine for GF R [facility] ([facility]) blood urea nitrogen 8 mg/dL 7-18 Blood Urea Nitro gen [facility] ([facility]) glomerular filtration rate > 60.0 >60 Glomerula r Filtration Rate [facility] ([facility]) potassium serum 4.5 mEq/L 3.5-5.1 Potassium Serum [facility] ([facility]) sodium level 142 mEq/L 136-145 Sodium Level [facility] ([facility]) carbon dioxide level 25 mEq/L 21-32 Carbon Dioxide Level [facility] ([facility]) chloride level 109 mEq/L 98-107 Above high normal Chloride Level [facility] ([facility]) calcium level 7.5 mg/dL 8.5-10.1 Below low normal Calcium Level AT [facility]) anion gap 8 mEq/L 8-16 Anion Gap [facility] ([facility]) AST/SGOT 31 U/L 7-37 AST/SGOT [facility] ([facility]) alkaline phosphatase 100 U/L 45-117 Alkaline Phosph atase [facility] ([facility]) ALT/SGPT 41 U/L 12-78 ALT/SGPT [facility] ([facility]) total protein 5.4 gm/dL 6.4-8.2 Below low normal Total Protein AT [facility] ([facility]) bilirubin,total 0.6 mg/dL 0.2-1.0 Bilirubin,total [facility] ([facility]) albumin 2.2 gm/dL 3.2-5.2 Below low normal Albumin [facility] ( [facility]) albumin/globulin ratio Albumin/globu mar Ratio [facility] ([facility]) ID Date Data Source [id number] 06/19/2020 05:02:00 AM EST [facility] ([facility]) Name Value Range Interpretation Code Description Data Marla rce(s) Supporting Document(s) white blood count 5.8 10 4.0-10.0 White Blood Count [facility] ([facility]) red blood count 3.88 10 4.30-6.10 Below low normal Red Blood Coun t [facility] ([facility]) hemoglobin 10.9 g/dL 13.5-17.5 Below low normal Hemoglobin [facility] ( [facility]) mean corpuscular volume 87.9 fL 80.0-96.0 Mean Corpusc ular Volume [facility] ([facility]) hematocrit 34.1 % 42.0-52.0 Below low normal Hematocrit [facility] ( [facility]) mean corpuscular hemoglobin 28.1 pg 27.0-33.0 Mean Cor puscular Hemoglobin [facility] ([facility]) red cell distribution width 13.4 % 11.5-14.5 Red Cell Distribution Width [facility] ([facility]) mean corpuscular HGB conc 32.0 g/dL 32.0-36.5 Mean Corpu scular HGB Conc [facility] ([facility]) nucleated red blood cell % 0.0 % 0-0 Nucleated Red Blood Cell % [facility] ([facility]) platelet count, automated 211 10 150-450 Platelet C ount, Automated [facility] ([facility]) ID Date Data Source [id number] 06/19/2020 05:02:00 AM EST [facility] ([facility]) Name Value Range Interpretation Code Description Data Marla rce(s) Supporting Document(s) magnesium level 2.1 mg/dL 1.8-2.4 Magnesium Level [facility] ([facility]) ID Date Data Source [id number] 06/19/2020 05:02:00 AM EST [facility] ([facility]) Name Value Range Interpretation Code Description Data Marla rce(s) Supporting Document(s) phosphorus level 2.5 mg/dL 2.5-4.9 Phosphorus Level AT [facility]) ID Date Data Source [id number] 06/19/2020 05:02:00 AM EST [facility] ([facility]) Name Value Range Interpretation Code Description Data Marla rce(s) Supporting Document(s) glucose, fasting 116 mg/dL 70-100 Above high normal Glucose, Fas ting [facility] ([facility]) blood urea nitrogen 8 mg/dL 7-18 Blood Urea Nitro gen ROSE BUD ([facility]) creatinine for GFR 0.70 mg/dL 0.70-1.30 Creatinine for GF R ROSE BUD ([facility]) glomerular filtration rate > 60.0 >60 Glomerula r Filtration Rate ROSE BUD ([facility]) potassium serum 4.5 mEq/L 3.5-5.1 Potassium Serum ATHE NA ([facility]) sodium level 142 mEq/L 136-145 Sodium Level GARRET ([facility]) chloride level 109 mEq/L 98-107 Above high normal Chloride Level GARRET ([facility]) carbon dioxide level 25 mEq/L 21-32 Carbon Dioxide Level ROSE BUD ([facility]) anion gap 8 mEq/L 8-16 Anion Gap ROSE BUD ([facility]) calcium level 7.5 mg/dL 8.5-10.1 Below low normal Calcium Level AT [facility]) AST/SGOT 31 U/L 7-37 AST/SGOT ROSE BUD ([facility]) ALT/SGPT 41 U/L 12-78 ALT/SGPT GARRET ([facility]) bilirubin,total 0.6 mg/dL 0.2-1.0 Bilirubin,total ATHE NA ([facility]) alkaline phosphatase 100 U/L 45-117 Alkaline Phosph atase GARRET ([facility]) total protein 5.4 gm/dL 6.4-8.2 Below low normal Total Protein AT [facility] ([facility]) albumin 2.2 gm/dL 3.2-5.2 Below low normal Albumin GARRET ( [facility]) albumin/globulin ratio Albumin/globu mar Ratio ROSE BUD ([facility]) ID Date Data Source [id number] 06/19/2020 05:02:00 AM EST ROSE BUD ([facility]) Name Value Range Interpretation Code Description Data Marla rce(s) Supporting Document(s) white blood count 5.8 10 4.0-10.0 White Blood Count GARRET ([facility]) red blood count 3.88 10 4.30-6.10 Below low normal Red Blood Coun t ROSE BUD ([facility]) hemoglobin 10.9 g/dL 13.5-17.5 Below low normal Hemoglobin GARRET ( [facility]) hematocrit 34.1 % 42.0-52.0 Below low normal Hematocrit ROSE BUD ( [facility]) mean corpuscular volume 87.9 fL 80.0-96.0 Mean Corpusc ular Volume GARRET ([facility]) mean corpuscular hemoglobin 28.1 pg 27.0-33.0 Mean Cor puscular Hemoglobin GARRET ([facility]) mean corpuscular HGB conc 32.0 g/dL 32.0-36.5 Mean Corpu scular HGB Conc GARRET ([facility]) red cell distribution width 13.4 % 11.5-14.5 Red Cell Distribution Width ROSE BUD ([facility]) platelet count, automated 211 10 150-450 Platelet C ount, Automated GARRET ([facility]) nucleated red blood cell % 0.0 % 0-0 Nucleated Red Blood Cell % ROSE BUD [facility]) ID Date Data Source [id number] 06/18/2020 10:46:00 [facility] Name Value Range Interpretation Code Description Data Marla rce(s) Supporting Document(s) ID Date Data Source [id number] 06/18/2020 10:46:00 AM EST GARRET [facility]) Name Value Range Interpretation Code Description Data Marla rce(s) Supporting Document(s) ID Date Data Source [id number] 06/18/2020 10:46:00 AM EST GARRET [facility]) Name Value Range Interpretation Code Description Data Marla rce(s) Supporting Document(s) ID Date Data Source [id number] 06/18/2020 10:46:00 AM EST GARRET ([facility]) Name Value Range Interpretation Code Description Data Marla rce(s) Supporting Document(s) ID Date Data Source [id number] 06/18/2020 10:46:00 AM EST GARRET ([facility]) Name Value Range Interpretation Code Description Data Marla rce(s) Supporting Document(s) ID Date Data Source [id number] 06/18/2020 10:46:00 AM EST GARRET [facility]) Name Value Range Interpretation Code Description Data Marla rce(s) Supporting Document(s) ID Date Data Source [id number] 06/18/2020 10:46:00 AM EST [facility] Name Value Range Interpretation Code Description Data Marla rce(s) Supporting Document(s) SARS-CoV-2 (COVID 19) NEGATIVE - SARS-CoV-2 (COVID19) [facility] This lab was ordered by [facility] a nd reported by [facility]. ID Date Data Source [id number] 06/18/2020 05:35:00 AM EST GARRET ([facility]) Name Value Range Interpretation Code Description Data Marla rce(s) Supporting Document(s) platelet estimate normal normal Platelet Estimate GARRET ([facility]) ID Date Data Source [id number] 06/18/2020 05:35:00 AM EST GARRET ([facility]) Name Value Range Interpretation Code Description Data Marla rce(s) Supporting Document(s) neutrophils 76 % 28-66 Above high normal Neutrophils ATHEN A ([facility]) lymphocytes 17 % 16-44 Lymphocytes GARRET ([facility]) monocytes 5 % 0-5 Monocytes GARRET ([facility]) atypical lymph 1 % 0-5 Atypical Lymph GARRET ([facility]) basophils 1 % 0-1 Basophils GARRET ([facility]) RBC morphology normal RBC Morphology GARRET ([facility]) ID Date Data Source [id number] 06/18/2020 05:35:00 AM EST GARRET ([facility]) Name Value Range Interpretation Code Description Data Marla rce(s) Supporting Document(s) white blood count 5.6 10 4.0-10.0 White Blood Count GARRET ([facility]) red blood count 3.53 10 4.30-6.10 Below low normal Red Blood Coun t GARRET ([facility]) hemoglobin 10.1 g/dL 13.5-17.5 Below low normal Hemoglobin GARRET ( [facility]) mean corpuscular volume 89.0 fL 80.0-96.0 Mean Corpusc ular Volume GARRET ([facility]) hematocrit 31.4 % 42.0-52.0 Below low normal Hematocrit GARRET ( [facility]) mean corpuscular hemoglobin 28.6 pg 27.0-33.0 Mean Cor puscular Hemoglobin GARRET ([facility]) red cell distribution width 13.6 % 11.5-14.5 Red Cell Distribution Width GARRET ([facility]) mean corpuscular HGB conc 32.2 g/dL 32.0-36.5 Mean Corpu scular HGB Conc ROSE BUD ([facility]) platelet count, automated 175 10 150-450 Platelet C ount, Automated ROSE BUD ([facility]) nucleated red blood cell % 0.0 % 0-0 Nucleated Red Blood Cell % ROSE BUD ([facility]) ID Date Data Source [id number] 06/18/2020 05:35:00 AM EST ROSE BUD ([facility]) Name Value Range Interpretation Code Description Data Marla rce(s) Supporting Document(s) lipase 327 U/L 73-393 Lipase [facility]) ID Date Data Source [id number] 06/18/2020 05:35:00 AM EST ROSE BUD ([facility]) Name Value Range Interpretation Code Description Data Marla rce(s) Supporting Document(s) glucose, fasting 82 mg/dL 70-100 Glucose, Fasting AT [facility]) blood urea nitrogen 8 mg/dL 7-18 Blood Urea Nitro gen ROSE BUD ([facility]) glomerular filtration rate > 60.0 >60 Glomerula r Filtration Rate ROSE BUD ([facility]) creatinine for GFR 0.76 mg/dL 0.70-1.30 Creatinine for GF R ROSE BUD ([facility]) sodium level 140 mEq/L 136-145 Sodium Level ROSE BUD ([facility]) potassium serum 4.0 mEq/L 3.5-5.1 Potassium Serum ATH NA ([facility]) chloride level 108 mEq/L 98-107 Above high normal Chloride Level ROSE BUD ([facility]) carbon dioxide level 25 mEq/L 21-32 Carbon Dioxide Level ROSE BUD ([facility]) anion gap 7 mEq/L 8-16 Below low normal Anion Gap ROSE BUD ( [facility]) calcium level 7.4 mg/dL 8.5-10.1 Below low normal Calcium Level AT [facility]) AST/SGOT 33 U/L 7-37 AST/SGOT GARRET ([facility]) ALT/SGPT 49 U/L 12-78 ALT/SGPT GARRET ([facility]) alkaline phosphatase 98 U/L 45-117 Alkaline Phosph atase GARRET ([facility]) bilirubin,total 0.8 mg/dL 0.2-1.0 Bilirubin,total ATHE NA ([facility]) total protein 5.2 gm/dL 6.4-8.2 Below low normal Total Protein AT [facility] ([facility]) albumin 2.2 gm/dL 3.2-5.2 Below low normal Albumin GARRET ( [facility]) albumin/globulin ratio Albumin/globu mar Ratio GARRET ([facility]) ID Date Data Source [id number] 06/18/2020 05:35:00 AM EST GARRET ([facility]) Name Value Range Interpretation Code Description Data Marla rce(s) Supporting Document(s) platelet estimate normal normal Platelet Estimate GARRET ([facility]) ID Date Data Source [id number] 06/18/2020 05:35:00 AM EST GARRET ([facility]) Name Value Range Interpretation Code Description Data Marla rce(s) Supporting Document(s) neutrophils 76 % 28-66 Above high normal Neutrophils ATHEN A ([facility]) lymphocytes 17 % 16-44 Lymphocytes GARRET ([facility]) monocytes 5 % 0-5 Monocytes GARRET ([facility]) basophils 1 % 0-1 Basophils GARRET ([facility]) atypical lymph 1 % 0-5 Atypical Lymph GARRET ([facility]) RBC morphology normal RBC Morphology GARRET ([facility]) ID Date Data Source [id number] 06/18/2020 05:35:00 [facility] Name Value Range Interpretation Code Description Data Marla rce(s) Supporting Document(s) white blood count 5.6 10 4.0-10.0 White Blood Count GARRET ([facility]) red blood count 3.53 10 4.30-6.10 Below low normal Red Blood Coun t ROSE BUD ([facility]) hemoglobin 10.1 g/dL 13.5-17.5 Below low normal Hemoglobin ROSE BUD ( [facility]) hematocrit 31.4 % 42.0-52.0 Below low normal Hematocrit ROSE BUD ( [facility]) mean corpuscular volume 89.0 fL 80.0-96.0 Mean Corpusc ular Volume ROSE BUD ([facility]) mean corpuscular hemoglobin 28.6 pg 27.0-33.0 Mean Cor puscular Hemoglobin ROSE BUD ([facility]) mean corpuscular HGB conc 32.2 g/dL 32.0-36.5 Mean Corpu scular HGB Conc ROSE BUD ([facility]) platelet count, automated 175 10 150-450 Platelet C ount, Automated ROSE BUD ([facility]) red cell distribution width 13.6 % 11.5-14.5 Red Cell Distribution Width ROSE BUD ([facility]) nucleated red blood cell % 0.0 % 0-0 Nucleated Red Blood Cell % ROSE BUD ([facility]) ID Date Data Source [id number] 06/18/2020 05:35:00 AM EST ROSE BUD ([facility]) Name Value Range Interpretation Code Description Data Marla rce(s) Supporting Document(s) lipase 327 U/L 73-393 Lipase ROSE BUD ([facility]) ID Date Data Source [id number] 06/18/2020 05:35:00 AM EST ROSE BUD ([facility]) Name Value Range Interpretation Code Description Data Marla rce(s) Supporting Document(s) glucose, fasting 82 mg/dL 70-100 Glucose, Fasting AT [facility] ([facility]) blood urea nitrogen 8 mg/dL 7-18 Blood Urea Nitro gen ROSE BUD ([facility]) creatinine for GFR 0.76 mg/dL 0.70-1.30 Creatinine for GF R ROSE BUD ([facility]) glomerular filtration rate > 60.0 >60 Glomerula r Filtration Rate GARRET ([facility]) sodium level 140 mEq/L 136-145 Sodium Level GARRET ([facility]) potassium serum 4.0 mEq/L 3.5-5.1 Potassium Serum ATHE ([facility]) chloride level 108 mEq/L 98-107 Above high normal Chloride Level GARRET ([facility]) carbon dioxide level 25 mEq/L 21-32 Carbon Dioxide Level GARRET ([facility]) anion gap 7 mEq/L 8-16 Below low normal Anion Gap GARRET ( [facility]) calcium level 7.4 mg/dL 8.5-10.1 Below low normal Calcium Level AT [facility]) AST/SGOT 33 U/L 7-37 AST/SGOT GARRET ([facility]) ALT/SGPT 49 U/L 12-78 ALT/SGPT GARRET ([facility]) alkaline phosphatase 98 U/L 45-117 Alkaline Phosph atase GARRET ([facility]) bilirubin,total 0.8 mg/dL 0.2-1.0 Bilirubin,total ATHE ([facility]) total protein 5.2 gm/dL 6.4-8.2 Below low normal Total Protein AT [facility] ([facility]) albumin 2.2 gm/dL 3.2-5.2 Below low normal Albumin GARRET ( [facility]) albumin/globulin ratio Albumin/globu mar Ratio GARRET ([facility]) ID Date Data Source [id number] 06/18/2020 05:35:00 AM EST ROSE BUD ([facility]) Name Value Range Interpretation Code Description Data Marla rce(s) Supporting Document(s) platelet estimate normal normal Platelet Estimate GARRET ([facility]) ID Date Data Source [id number] 06/18/2020 05:35:00 AM EST ROSE BUD ([facility]) Name Value Range Interpretation Code Description Data Marla rce(s) Supporting Document(s) lymphocytes 17 % 16-44 Lymphocytes GARRET ([facility]) neutrophils 76 % 28-66 Above high normal Neutrophils ATHEN A ([facility]) monocytes 5 % 0-5 Monocytes GARRET ([facility]) basophils 1 % 0-1 Basophils GARRET ([facility]) atypical lymph 1 % 0-5 Atypical Lymph GARRET ([facility]) RBC morphology normal RBC Morphology G[facility]RET ([facility]) ID Date Data Source [id number] 06/18/2020 05:35:00 AM EST GARRET ([facility]) Name Value Range Interpretation Code Description Data Marla rce(s) Supporting Document(s) white blood count 5.6 10 4.0-10.0 White Blood Count GARRET ([facility]) red blood count 3.53 10 4.30-6.10 Below low normal Red Blood Coun t GARRET ([facility]) hemoglobin 10.1 g/dL 13.5-17.5 Below low normal Hemoglobin GARRET ( [facility]) hematocrit 31.4 % 42.0-52.0 Below low normal Hematocrit GARRET ( [facility]) mean corpuscular volume 89.0 fL 80.0-96.0 Mean Corpusc ular Volume GARRET ([facility]) mean corpuscular HGB conc 32.2 g/dL 32.0-36.5 Mean Corpu scular HGB Conc GARRET ([facility]) mean corpuscular hemoglobin 28.6 pg 27.0-33.0 Mean Cor puscular Hemoglobin GARRET ([facility]) red cell distribution width 13.6 % 11.5-14.5 Red Cell Distribution Width GARRET ([facility]) platelet count, automated 175 10 150-450 Platelet C ount, Automated GARRET ([facility]) nucleated red blood cell % 0.0 % 0-0 Nucleated Red Blood Cell % GARRET ([facility]) ID Date Data Source [id number] 06/18/2020 05:35:00 AM EST GARRET ([facility]) Name Value Range Interpretation Code Description Data Marla rce(s) Supporting Document(s) lipase 327 U/L 73-393 Lipase ROSE BUD ([facility]) ID Date Data Source [id number] 06/18/2020 05:35:00 AM EST ROSE BUD ([facility]) Name Value Range Interpretation Code Description Data Marla rce(s) Supporting Document(s) glucose, fasting 82 mg/dL 70-100 Glucose, Fasting AT [facility] ([facility]) blood urea nitrogen 8 mg/dL 7-18 Blood Urea Nitro gen ROSE BUD ([facility]) creatinine for GFR 0.76 mg/dL 0.70-1.30 Creatinine for GF R ROSE BUD ([facility]) sodium level 140 mEq/L 136-145 Sodium Level ROSE BUD ([facility]) glomerular filtration rate > 60.0 >60 Glomerula r Filtration Rate ROSE BUD ([facility]) potassium serum 4.0 mEq/L 3.5-5.1 Potassium Serum ATHE ([facility]) chloride level 108 mEq/L 98-107 Above high normal Chloride Level ROSE BUD ([facility]) carbon dioxide level 25 mEq/L 21-32 Carbon Dioxide Level ROSE BUD ([facility]) anion gap 7 mEq/L 8-16 Below low normal Anion Gap ROSE BUD ( [facility]) calcium level 7.4 mg/dL 8.5-10.1 Below low normal Calcium Level AT [facility] ([facility]) AST/SGOT 33 U/L 7-37 AST/SGOT GARRET ([facility]) ALT/SGPT 49 U/L 12-78 ALT/SGPT ROSE BUD ([facility]) bilirubin,total 0.8 mg/dL 0.2-1.0 Bilirubin,total ATHE ([facility]) alkaline phosphatase 98 U/L 45-117 Alkaline Phosph atase ROSE BUD ([facility]) total protein 5.2 gm/dL 6.4-8.2 Below low normal Total Protein AT [facility] ([facility]) albumin 2.2 gm/dL 3.2-5.2 Below low normal Albumin ROSE BUD ( [facility]) albumin/globulin ratio Albumin/globu mar Ratio GARRET ([facility]) ID Date Data Source [id number] 06/18/2020 05:35:00 AM EST GARRET ([facility]) Name Value Range Interpretation Code Description Data Marla rce(s) Supporting Document(s) platelet estimate normal normal Platelet Estimate GARRET ([facility]) ID Date Data Source [id number] 06/18/2020 05:35:00 AM EST GARRET ([facility]) Name Value Range Interpretation Code Description Data Marla rce(s) Supporting Document(s) neutrophils 76 % 28-66 Above high normal Neutrophils ATHEN A ([facility]) lymphocytes 17 % 16-44 Lymphocytes GARRET ([facility]) monocytes 5 % 0-5 Monocytes GRARET ([facility]) basophils 1 % 0-1 Basophils GARRET ([facility]) atypical lymph 1 % 0-5 Atypical Lymph GARRET ([facility]) RBC morphology normal RBC Morphology GARRET ([facility]) ID Date Data Source [id number] 06/18/2020 05:35:00 AM EST GARRET ([facility]) Name Value Range Interpretation Code Description Data Marla rce(s) Supporting Document(s) white blood count 5.6 10 4.0-10.0 White Blood Count GARRET ([facility]) red blood count 3.53 10 4.30-6.10 Below low normal Red Blood Coun t GARRET ([facility]) hematocrit 31.4 % 42.0-52.0 Below low normal Hematocrit GARRET ( [facility]) hemoglobin 10.1 g/dL 13.5-17.5 Below low normal Hemoglobin GARRET ( [facility]) mean corpuscular hemoglobin 28.6 pg 27.0-33.0 Mean Cor puscular Hemoglobin GARRET ([facility]) mean corpuscular volume 89.0 fL 80.0-96.0 Mean Corpusc ular Volume ROSE BUD ([facility]) mean corpuscular HGB conc 32.2 g/dL 32.0-36.5 Mean Corpu scular HGB Conc ROSE BUD ([facility]) platelet count, automated 175 10 150-450 Platelet C ount, Automated RO[facility] BUD ([facility]) red cell distribution width 13.6 % 11.5-14.5 Red Cell Distribution Width ROSE [facility]UD ([facility]) nucleated red blood cell % 0.0 % 0-0 Nucleated Red Blood Cell % ROSE BUD ([facility]) ID Date Data Source [id number] 06/18/2020 05:35:00 AM EST [facility]) Name Value Range Interpretation Code Description Data Marla rce(s) Supporting Document(s) lipase 327 U/L 73-393 Lipase ROSE BUD ([facility]) ID Date Data Source [id number] 06/18/2020 05:35:00 AM EST RO[facility] BUD ([facility]) Name Value Range Interpretation Code Description Data Marla rce(s) Supporting Document(s) glucose, fasting 82 mg/dL 70-100 Glucose, Fasting AT [facility]) blood urea nitrogen 8 mg/dL 7-18 Blood Urea Nitro gen [facility]) creatinine for GFR 0.76 mg/dL 0.70-1.30 Creatinine for GF R ROSE BUD ([facility]) glomerular filtration rate > 60.0 >60 Glomerula r Filtration Rate ROSE BUD ([facility]) sodium level 140 mEq/L 136-145 Sodium Level ROSE BUD ([facility]) potassium serum 4.0 mEq/L 3.5-5.1 [facility] carbon dioxide level 25 mEq/L 21-32 Carbon Dioxide Level [facility]) chloride level 108 mEq/L 98-107 Above high normal Chloride Level ROSE BUD ([facility]) calcium level 7.4 mg/dL 8.5-10.1 Below low normal Calcium Level AT [facility] ([facility]) anion gap 7 mEq/L 8-16 Below low normal Anion Gap GARRET ( [facility]) AST/SGOT 33 U/L 7-37 AST/SGOT G[facility] ([facility]) ALT/SGPT 49 U/L 12-78 ALT/SGPT G[facility]RET ([facility]) alkaline phosphatase 98 U/L 45-117 Alkaline Phosph atase GARRET ([facility]) total protein 5.2 gm/dL 6.4-8.2 Below low normal Total Protein AT [facility] ([facility]) bilirubin,total 0.8 mg/dL 0.2-1.0 Bilirubin,total ATHE NA ([facility]) albumin 2.2 gm/dL 3.2-5.2 Below low normal Albumin GARRET ( [facility]) albumin/globulin ratio Albumin/globu mar Ratio GARRET ([facility]) ID Date Data Source [id number] 06/18/2020 05:35:00 AM EST [facility] ([facility]) Name Value Range Interpretation Code Description Data Marla rce(s) Supporting Document(s) platelet estimate normal normal Platelet Estimate [facility] ([facility] [facility] ID Date Data Source [id number] 06/18/2020 05:35:00 [facility] Name Value Range Interpretation Code Description Data Marla rce(s) Supporting Document(s) lymphocytes 17 % 16-44 Lymphocytes GARRET ([facility]) neutrophils 76 % 28-66 Above high normal Neutrophils ATHEN A ([facility]) monocytes 5 % 0-5 Monocytes GARRET ([facility]) basophils 1 % 0-1 Basophils GARRET ([facility]) atypical lymph 1 % 0-5 Atypical Lymph GARRET ([facility]) RBC morphology normal RBC Morphology GARRET ([facility]) ID Date Data Source [id number] 06/18/2020 05:35:00 AM EST GARRET ([facility]) Name Value Range Interpretation Code Description Data Marla rce(s) Supporting Document(s) white blood count 5.6 10 4.0-10.0 White Blood Count ROSE BUD ([facility]) red blood count 3.53 10 4.30-6.10 Below low normal Red Blood Coun t GARRET ([facility]) hemoglobin 10.1 g/dL 13.5-17.5 Below low normal Hemoglobin ROSE BUD ( [facility]) mean corpuscular volume 89.0 fL 80.0-96.0 Mean Corpusc ular Volume ROSE BUD ([facility]) hematocrit 31.4 % 42.0-52.0 Below low normal Hematocrit ROSE BUD ( [facility]) mean corpuscular hemoglobin 28.6 pg 27.0-33.0 Mean Cor puscular Hemoglobin ROSE BUD ([facility]) mean corpuscular HGB conc 32.2 g/dL 32.0-36.5 Mean Corpu scular HGB Conc ROSE BUD ([facility]) red cell distribution width 13.6 % 11.5-14.5 Red Cell Distribution Width ROSE BUD ([facility]) nucleated red blood cell % 0.0 % 0-0 Nucleated Red Blood Cell % ROSE BUD ([facility]) platelet count, automated 175 10 150-450 Platelet C ount, Automated ROSE BUD ([facility]) ID Date Data Source [id number] 06/18/2020 05:35:00 AM EST ROSE BUD ([facility]) Name Value Range Interpretation Code Description Data Marla rce(s) Supporting Document(s) lipase 327 U/L 73-393 Lipase GARRET ([facility]) ID Date Data Source [id number] 06/18/2020 05:35:00 AM EST GARRET ([facility]) Name Value Range Interpretation Code Description Data Marla rce(s) Supporting Document(s) glucose, fasting 82 mg/dL 70-100 Glucose, Fasting AT [facility]) blood urea nitrogen 8 mg/dL 7-18 Blood Urea Nitro gen GARRET ([facility]) creatinine for GFR 0.76 mg/dL 0.70-1.30 Creatinine for GF R GARRET ([facility]) glomerular filtration rate > 60.0 >60 Glomerula r Filtration Rate GARRET ([facility]) sodium level 140 mEq/L 136-145 Sodium Level GARRET ([facility]) potassium serum 4.0 mEq/L 3.5-5.1 Potassium Serum ATHE NA ([facility]) chloride level 108 mEq/L 98-107 Above high normal Chloride Level GARRET ([facility]) carbon dioxide level 25 mEq/L 21-32 Carbon Dioxide Level GARRET ([facility]) calcium level 7.4 mg/dL 8.5-10.1 Below low normal Calcium Level AT [facility]) anion gap 7 mEq/L 8-16 Below low normal Anion Gap GARRET ( [facility]) ALT/SGPT 49 U/L 12-78 ALT/SGPT GARRET ([facility]) AST/SGOT 33 U/L 7-37 AST/SGOT GARRET ([facility]) alkaline phosphatase 98 U/L 45-117 Alkaline Phosph atase GARRET ([facility]) bilirubin,total 0.8 mg/dL 0.2-1.0 Bilirubin,total ATHE ([facility]) total protein 5.2 gm/dL 6.4-8.2 Below low normal Total Protein AT [facility]) albumin 2.2 gm/dL 3.2-5.2 Below low normal Albumin GARRET ( [facility]) albumin/globulin ratio Albumin/globu mar Ratio GARRET ([facility]) ID Date Data Source [id number] 06/18/2020 05:35:00 AM EST GARRET ([facility]) Name Value Range Interpretation Code Description Data Marla rce(s) Supporting Document(s) platelet estimate normal normal Platelet Estimate GARRET ([facility]) ID Date Data Source [id number] 06/18/2020 05:35:00 AM EST GARRET ([facility]) Name Value Range Interpretation Code Description Data Marla rce(s) Supporting Document(s) neutrophils 76 % 28-66 Above high normal Neutrophils ATHEN A ([facility]) monocytes 5 % 0-5 Monocytes GARRET ([facility]) lymphocytes 17 % 16-44 Lymphocytes GARRET ([facility]) basophils 1 % 0-1 Basophils GARRET ([facility]) atypical lymph 1 % 0-5 Atypical Lymph GARRET ([facility]) RBC morphology normal RBC Morphology GARRET ([facility]) ID Date Data Source [id number] 06/18/2020 05:35:00 AM EST GARRET ([facility]) Name Value Range Interpretation Code Description Data Marla rce(s) Supporting Document(s) white blood count 5.6 10 4.0-10.0 White Blood Count GARRET ([facility]) red blood count 3.53 10 4.30-6.10 Below low normal Red Blood Coun t GARRET ([facility]) hemoglobin 10.1 g/dL 13.5-17.5 Below low normal Hemoglobin GARRET ( [facility]) hematocrit 31.4 % 42.0-52.0 Below low normal Hematocrit GARRET ( [facility]) mean corpuscular volume 89.0 fL 80.0-96.0 Mean Corpusc ular Volume GARRET ([facility]) mean corpuscular hemoglobin 28.6 pg 27.0-33.0 Mean Cor puscular Hemoglobin GARRET ([facility]) red cell distribution width 13.6 % 11.5-14.5 Red Cell Distribution Width GARRET ([facility]) mean corpuscular HGB conc 32.2 g/dL 32.0-36.5 Mean Corpu scular HGB Conc GARRET ([facility]) nucleated red blood cell % 0.0 % 0-0 Nucleated Red Blood Cell % GARRTE ([facility]) platelet count, automated 175 10 150-450 Platelet C ount, [facility] ID Date Data Source [id number] 06/18/2020 05:35:00 AM EST GARRET ([facility]) Name Value Range Interpretation Code Description Data Marla rce(s) Supporting Document(s) lipase 327 U/L 73-393 Lipase ROSE BUD ([facility]) ID Date Data Source [id number] 06/18/2020 05:35:00 AM EST GARRET ([facility]) Name Value Range Interpretation Code Description Data Marla rce(s) Supporting Document(s) glucose, fasting 82 mg/dL 70-100 Glucose, Fasting AT [facility] ([facility]) blood urea nitrogen 8 mg/dL 7-18 Blood Urea Nitro gen ROSE BUD ([facility]) creatinine for GFR 0.76 mg/dL 0.70-1.30 Creatinine for GF R ROSE BUD ([facility]) glomerular filtration rate > 60.0 >60 Glomerula r Filtration Rate ROSE BUD ([facility]) sodium level 140 mEq/L 136-145 Sodium Level GARRET ([facility]) potassium serum 4.0 mEq/L 3.5-5.1 Potassium Serum ATHE ([facility]) chloride level 108 mEq/L 98-107 Above high normal Chloride Level ROSE BUD ([facility]) carbon dioxide level 25 mEq/L 21-32 Carbon Dioxide Level GARRET ([facility]) anion gap 7 mEq/L 8-16 Below low normal Anion Gap ROSE BUD ( [facility]) AST/SGOT 33 U/L 7-37 AST/SGOT ROSE BUD ([facility]) calcium level 7.4 mg/dL 8.5-10.1 Below low normal Calcium Level AT [facility]) ALT/SGPT 49 U/L 12-78 ALT/SGPT ROSE BUD ([facility]) alkaline phosphatase 98 U/L 45-117 Alkaline Phosph atase GARRET ([facility]) bilirubin,total 0.8 mg/dL 0.2-1.0 Bilirubin,total ATHE ([facility]) total protein 5.2 gm/dL 6.4-8.2 Below low normal Total Protein AT [facility] ([facility]) albumin 2.2 gm/dL 3.2-5.2 Below low normal Albumin ROSE BUD ( [facility]) albumin/globulin ratio Albumin/globu mar Ratio ROSE BUD ([facility]) ID Date Data Source [id number] 06/17/2020 07:47:00 AM EST ROSE BUD ([facility]) Name Value Range Interpretation Code Description Data Marla rce(s) Supporting Document(s) magnesium level 1.7 mg/dL 1.8-2.4 Below low normal Magnesium Leve l [facility]) ID Date Data Source [id number] 06/17/2020 07:47:00 AM EST [facility]) Name Value Range Interpretation Code Description Data Marla rce(s) Supporting Document(s) phosphorus level 2.8 mg/dL 2.5-4.9 Phosphorus Level AT [facility]) ID Date Data Source [id number] 06/17/2020 07:47:00 AM EST [facility]) Name Value Range Interpretation Code Description Data Marla rce(s) Supporting Document(s) blood urea nitrogen 13 mg/dL 7-18 Blood Urea Nitro gen ROSE BUD ([facility]) glucose, fasting 99 mg/dL 70-100 Glucose, Fasting AT [facility] ([facility]) creatinine for GFR 1.12 mg/dL 0.70-1.30 Creatinine for GF R GARRET ([facility]) glomerular filtration rate > 60.0 >60 Glomerula r Filtration Rate ROSE BUD ([facility]) potassium serum 4.0 mEq/L 3.5-5.1 Potassium Serum ATHE NA ([facility]) sodium level 139 mEq/L 136-145 Sodium Level GARRET ([facility]) chloride level 107 mEq/L 98-107 Chloride Level ROSE BUD ([facility]) carbon dioxide level 25 mEq/L 21-32 Carbon Dioxide Level GARRET ([facility]) anion gap 7 mEq/L 8-16 Below low normal Anion Gap GARRET ( [facility]) calcium level 7.2 mg/dL 8.5-10.1 Below low normal Calcium Level AT [facility] ([facility]) ALT/SGPT 63 U/L 12-78 ALT/SGPT GARRET ([facility]) AST/SGOT 51 U/L 7-37 Above high normal AST/SGOT GARRET ([facility]) bilirubin,total 0.9 mg/dL 0.2-1.0 Bilirubin,total ATHE ([facility]) alkaline phosphatase 98 U/L 45-117 Alkaline Phosph atase GARRET ([facility]) albumin 2.3 gm/dL 3.2-5.2 Below low normal Albumin ROSE BUD ( [facility]) total protein 5.3 gm/dL 6.4-8.2 Below low normal Total Protein AT [facility] ([facility]) albumin/globulin ratio Albumin/globu mar Ratio ROSE BUD ([facility]) ID Date Data Source [id number] 06/17/2020 07:47:00 AM EST ROSE BUD ([facility]) Name Value Range Interpretation Code Description Data Marla rce(s) Supporting Document(s) white blood count 11.3 10 4.0-10.0 Above high normal White Blood Count GARRET ([facility]) red blood count 3.88 10 4.30-6.10 Below low normal Red Blood Coun t GARRET ([facility]) hemoglobin 11.0 g/dL 13.5-17.5 Below low normal Hemoglobin GARRET ( [facility]) mean corpuscular volume 89.2 fL 80.0-96.0 Mean Corpusc ular Volume GARRET ([facility]) hematocrit 34.6 % 42.0-52.0 Below low normal Hematocrit GARRET ( [facility]) mean corpuscular HGB conc 31.8 g/dL 32.0-36.5 Below low darrel l Mean Corpuscular HGB Conc GARRET ([facility]) mean corpuscular hemoglobin 28.4 pg 27.0-33.0 Mean Cor puscular Hemoglobin ROSE BUD ([facility]) platelet count, automated 256 10 150-450 Platelet C ount, Automated GARRET ([facility]) red cell distribution width 13.7 % 11.5-14.5 Red Cell Distribution Width ROSE BUD ([facility]) nucleated red blood cell % 0.0 % 0-0 Nucleated Red Blood Cell % ROSE BUD ([facility]) ID Date Data Source [id number] 06/17/2020 07:47:00 AM EST ROSE BUD ([facility]) Name Value Range Interpretation Code Description Data Marla rce(s) Supporting Document(s) magnesium level 1.7 mg/dL 1.8-2.4 Below low normal Magnesium Blu barba [facility]) ID Date Data Source [id number] 06/17/2020 07:47:00 AM EST ROSE BUD ([facility]) Name Value Range Interpretation Code Description Data Marla rce(s) Supporting Document(s) phosphorus level 2.8 mg/dL 2.5-4.9 Phosphorus Level AT [facility]) ID Date Data Source [id number] 06/17/2020 07:47:00 AM EST ROSE BUD ([facility]) Name Value Range Interpretation Code Description Data Marla rce(s) Supporting Document(s) glucose, fasting 99 mg/dL 70-100 Glucose, Fasting AT [facility] ([facility]) creatinine for GFR 1.12 mg/dL 0.70-1.30 Creatinine for GF R ROSE BUD ([facility]) blood urea nitrogen 13 mg/dL 7-18 Blood Urea Nitro gen GARRET ([facility]) sodium level 139 mEq/L 136-145 Sodium Level ROSE BUD (No [facility]) glomerular filtration rate > 60.0 >60 Glomerula r Filtration Rate ROSE BUD ([facility]) potassium serum 4.0 mEq/L 3.5-5.1 Potassium Serum ATHE ([facility]) carbon dioxide level 25 mEq/L 21-32 Carbon Dioxide Level GARRET ([facility]) chloride level 107 mEq/L 98-107 Chloride Level GARRET ([facility]) anion gap 7 mEq/L 8-16 Below low normal Anion Gap GARRET ( [facility]) AST/SGOT 51 U/L 7-37 Above high normal AST/SGOT GARRET ([facility]) calcium level 7.2 mg/dL 8.5-10.1 Below low normal Calcium Level AT [facility]) ALT/SGPT 63 U/L 12-78 ALT/SGPT GARRET ([facility]) alkaline phosphatase 98 U/L 45-117 Alkaline Phosph atase GARRET ([facility]) bilirubin,total 0.9 mg/dL 0.2-1.0 Bilirubin,total ATHE ([facility]) albumin 2.3 gm/dL 3.2-5.2 Below low normal Albumin ROSE BUD ( [facility]) total protein 5.3 gm/dL 6.4-8.2 Below low normal Total Protein AT [facility] ([facility]) albumin/globulin ratio Albumin/globu mar Ratio ROSE BUD ([facility]) ID Date Data Source [id number] 06/17/2020 07:47:00 AM EST ROSE BUD ([facility]) Name Value Range Interpretation Code Description Data Marla rce(s) Supporting Document(s) white blood count 11.3 10 4.0-10.0 Above high normal White Blood Count GARRET ([facility]) red blood count 3.88 10 4.30-6.10 Below low normal Red Blood Coun t GARRET ([facility]) hemoglobin 11.0 g/dL 13.5-17.5 Below low normal Hemoglobin ROSE BUD ( [facility]) mean corpuscular volume 89.2 fL 80.0-96.0 Mean Corpusc ular Volume GARRET ([facility]) hematocrit 34.6 % 42.0-52.0 Below low normal Hematocrit GARRET ( [facility]) mean corpuscular hemoglobin 28.4 pg 27.0-33.0 Mean Cor puscular Hemoglobin ROSE BUD ([facility]) mean corpuscular HGB conc 31.8 g/dL 32.0-36.5 Below low darrel l Mean Corpuscular HGB Conc GARRET ([facility]) red cell distribution width 13.7 % 11.5-14.5 Red Cell Distribution Width ROSE BUD ([facility]) platelet count, automated 256 10 150-450 Platelet C ount, Automated GARRET ([facility]) nucleated red blood cell % 0.0 % 0-0 Nucleated Red Blood Cell % ROSE BUD ([facility]) ID Date Data Source [id number] 06/17/2020 07:47:00 AM EST ROSE BUD ([facility]) Name Value Range Interpretation Code Description Data Marla rce(s) Supporting Document(s) magnesium level 1.7 mg/dL 1.8-2.4 Below low normal Magnesium Leve l ROSE BUD ([facility]) ID Date Data Source [id number] 06/17/2020 07:47:00 AM EST ROSE BUD ([facility]) Name Value Range Interpretation Code Description Data Marla rce(s) Supporting Document(s) phosphorus level 2.8 mg/dL 2.5-4.9 Phosphorus Level AT [facility]) ID Date Data Source [id number] 06/17/2020 07:47:00 AM EST ROSE BUD ([facility]) Name Value Range Interpretation Code Description Data Marla rce(s) Supporting Document(s) glucose, fasting 99 mg/dL 70-100 Glucose, Fasting AT [facility] ([facility]) blood urea nitrogen 13 mg/dL 7-18 Blood Urea Nitro gen ROSE BUD ([facility]) creatinine for GFR 1.12 mg/dL 0.70-1.30 Creatinine for GF R ROSE BUD ([facility]) glomerular filtration rate > 60.0 >60 Glomerula r Filtration Rate GARRET ([facility]) sodium level 139 mEq/L 136-145 Sodium Level GARRET ([facility]) potassium serum 4.0 mEq/L 3.5-5.1 Potassium Serum ATHE NA ([facility]) chloride level 107 mEq/L 98-107 Chloride Level GARRET ([facility]) carbon dioxide level 25 mEq/L 21-32 Carbon Dioxide Level GARRET ([facility]) anion gap 7 mEq/L 8-16 Below low normal Anion Gap GARRET ( [facility]) calcium level 7.2 mg/dL 8.5-10.1 Below low normal Calcium Level AT [facility]) AST/SGOT 51 U/L 7-37 Above high normal AST/SGOT GARRET ([facility]) ALT/SGPT 63 U/L 12-78 ALT/SGPT G[facility] ([facility]) alkaline phosphatase 98 U/L 45-117 Alkaline Phosph atase GARRET ([facility]) bilirubin,total 0.9 mg/dL 0.2-1.0 Bilirubin,total ATHE ([facility]) total protein 5.3 gm/dL 6.4-8.2 Below low normal Total Protein AT [facility] ([facility]) albumin 2.3 gm/dL 3.2-5.2 Below low normal Albumin GARRET ( [facility]) albumin/globulin ratio Albumin/globu mar Ratio GARRET ([facility]) ID Date Data Source [id number] 06/17/2020 07:47:00 AM EST ROSE BUD ([facility]) Name Value Range Interpretation Code Description Data Marla rce(s) Supporting Document(s) white blood count 11.3 10 4.0-10.0 Above high normal White Blood Count GARRET ([facility]) red blood count 3.88 10 4.30-6.10 Below low normal Red Blood Coun t GARRET ([facility]) hemoglobin 11.0 g/dL 13.5-17.5 Below low normal Hemoglobin GARRET ( [facility]) hematocrit 34.6 % 42.0-52.0 Below low normal Hematocrit GARRET ( [facility]) mean corpuscular volume 89.2 fL 80.0-96.0 Mean Corpusc ular Volume ROSE BUD ([facility]) mean corpuscular hemoglobin 28.4 pg 27.0-33.0 Mean Cor puscular Hemoglobin ROSE BUD ([facility]) mean corpuscular HGB conc 31.8 g/dL 32.0-36.5 Below low darrel l Mean Corpuscular HGB Conc ROSE BUD ([facility]) red cell distribution width 13.7 % 11.5-14.5 Red Cell Distribution Width ROSE BUD ([facility]) platelet count, automated 256 10 150-450 Platelet C ount, Automated ROSE BUD ([facility]) nucleated red blood cell % 0.0 % 0-0 Nucleated Red Blood Cell % ROSE BUD ([facility]) ID Date Data Source [id number] 06/17/2020 07:47:00 AM EST ROSE BUD ([facility]) Name Value Range Interpretation Code Description Data Marla rce(s) Supporting Document(s) magnesium level 1.7 mg/dL 1.8-2.4 Below low normal Magnesium Blu barba ROSE BUD ([facility]) ID Date Data Source [id number] 06/17/2020 07:47:00 AM EST [facility]) Name Value Range Interpretation Code Description Data Marla rce(s) Supporting Document(s) phosphorus level 2.8 mg/dL 2.5-4.9 Phosphorus Level AT [facility]) ID Date Data Source [id number] 06/17/2020 07:47:00 AM EST [facility]) Name Value Range Interpretation Code Description Data Marla rce(s) Supporting Document(s) glucose, fasting 99 mg/dL 70-100 Glucose, Fasting AT [facility] ([facility]) blood urea nitrogen 13 mg/dL 7-18 Blood Urea Nitro gen ROSE BUD [facility]) creatinine for GFR 1.12 mg/dL 0.70-1.30 Creatinine for GF R GARRET ([facility]) glomerular filtration rate > 60.0 >60 Glomerula r Filtration Rate GARRET ([facility]) sodium level 139 mEq/L 136-145 Sodium Level GARRET ([facility]) chloride level 107 mEq/L 98-107 Chloride Level GARRET ([facility]) potassium serum 4.0 mEq/L 3.5-5.1 Potassium Serum ATHE ([facility]) carbon dioxide level 25 mEq/L 21-32 Carbon Dioxide Level GARRET ([facility]) anion gap 7 mEq/L 8-16 Below low normal Anion Gap ROSE BUD ( [facility]) calcium level 7.2 mg/dL 8.5-10.1 Below low normal Calcium Level AT [facility]) AST/SGOT 51 U/L 7-37 Above high normal AST/SGOT ROSE BUD ([facility]) ALT/SGPT 63 U/L 12-78 ALT/SGPT ROSE BUD ([facility]) bilirubin,total 0.9 mg/dL 0.2-1.0 Bilirubin,total ATHE ([facility]) alkaline phosphatase 98 U/L 45-117 Alkaline Phosph atase ROSE BUD ([facility]) total protein 5.3 gm/dL 6.4-8.2 Below low normal Total Protein AT [facility]) albumin 2.3 gm/dL 3.2-5.2 Below low normal Albumin [facility] ( [facility]) albumin/globulin ratio Albumin/globu mar Ratio [facility] ([facility]) ID Date Data Source [id number] 06/17/2020 07:47:00 AM EST [facility]) Name Value Range Interpretation Code Description Data Marla rce(s) Supporting Document(s) white blood count 11.3 10 4.0-10.0 Above high normal White Blood Count [facility] ([facility]) red blood count 3.88 10 4.30-6.10 Below low normal Red Blood Coun t [facility] ([facility]) hemoglobin 11.0 g/dL 13.5-17.5 Below low normal Hemoglobin [facility] ( [facility]) hematocrit 34.6 % 42.0-52.0 Below low normal Hematocrit [facility] ( [facility]) mean corpuscular hemoglobin 28.4 pg 27.0-33.0 Mean Cor puscular Hemoglobin [facility] ([facility]) mean corpuscular volume 89.2 fL 80.0-96.0 Mean Corpusc ular Volume [facility] ([facility]) red cell distribution width 13.7 % 11.5-14.5 Red Cell Distribution Width [facility] ([facility]) mean corpuscular HGB conc 31.8 g/dL 32.0-36.5 Below low darrel l Mean Corpuscular HGB Conc [facility] ([facility]) platelet count, automated 256 10 150-450 Platelet C ount, Automated [facility] ([facility]) nucleated red blood cell % 0.0 % 0-0 Nucleated Red Blood Cell % [facility] ([facility]) ID Date Data Source [id number] 06/17/2020 07:47:00 AM EST [facility] ([facility]) Name Value Range Interpretation Code Description Data Marla rce(s) Supporting Document(s) magnesium level 1.7 mg/dL 1.8-2.4 Below low normal Magnesium Blu l [facility] ([facility]) ID Date Data Source [id number] 06/17/2020 07:47:00 AM EST [facility] ([facility]) Name Value Range Interpretation Code Description Data Marla rce(s) Supporting Document(s) phosphorus level 2.8 mg/dL 2.5-4.9 Phosphorus Level AT [facility] ([facility]) ID Date Data Source [id number] 06/17/2020 07:47:00 AM EST [facility] ([facility]) Name Value Range Interpretation Code Description Data Marla rce(s) Supporting Document(s) glucose, fasting 99 mg/dL 70-100 Glucose, Fasting AT [facility]) blood urea nitrogen 13 mg/dL 7-18 Blood Urea Nitro gen [facility] ([facility]) creatinine for GFR 1.12 mg/dL 0.70-1.30 Creatinine for GF R [facility] ([facility]) glomerular filtration rate > 60.0 >60 Glomerula r Filtration Rate [facility] ([facility]) potassium serum 4.0 mEq/L 3.5-5.1 Potassium Serum [facility] ([facility]) sodium level 139 mEq/L 136-145 Sodium Level [facility] ([facility]) chloride level 107 mEq/L 98-107 Chloride Level [facility] ([facility]) anion gap 7 mEq/L 8-16 Below low normal Anion Gap [facility] ( [facility]) carbon dioxide level 25 mEq/L 21-32 Carbon Dioxide Level [facility] ([facility]) AST/SGOT 51 U/L 7-37 Above high normal AST/SGOT [facility] ([facility]) calcium level 7.2 mg/dL 8.5-10.1 Below low normal Calcium Level AT [facility] ([facility]) alkaline phosphatase 98 U/L 45-117 Alkaline Phosph atase [facility] ([facility]) ALT/SGPT 63 U/L 12-78 ALT/SGPT [facility] ([facility]) bilirubin,total 0.9 mg/dL 0.2-1.0 Bilirubin,total [facility] ([facility]) total protein 5.3 gm/dL 6.4-8.2 Below low normal Total Protein AT [facility]) albumin 2.3 gm/dL 3.2-5.2 Below low normal Albumin [facility] ( [facility]) albumin/globulin ratio Albumin/globu mar Ratio [facility] ([facility]) ID Date Data Source [id number] 06/17/2020 07:47:00 AM EST [facility] ([facility]) Name Value Range Interpretation Code Description Data Marla rce(s) Supporting Document(s) white blood count 11.3 10 4.0-10.0 Above high normal White Blood Count [facility] ([facility]) red blood count 3.88 10 4.30-6.10 Below low normal Red Blood Coun t [facility] ([facility]) hematocrit 34.6 % 42.0-52.0 Below low normal Hematocrit [facility] ( [facility]) hemoglobin 11.0 g/dL 13.5-17.5 Below low normal Hemoglobin [facility] ( [facility]) mean corpuscular volume 89.2 fL 80.0-96.0 Mean Corpusc ular Volume [facility] ([facility]) mean corpuscular hemoglobin 28.4 pg 27.0-33.0 Mean Cor puscular Hemoglobin [facility] ([facility]) red cell distribution width 13.7 % 11.5-14.5 Red Cell Distribution Width [facility] ([facility]) mean corpuscular HGB conc 31.8 g/dL 32.0-36.5 Below low darrel l Mean Corpuscular HGB Conc [facility] ([facility]) nucleated red blood cell % 0.0 % 0-0 Nucleated Red Blood Cell % [facility] ([facility]) platelet count, automated 256 10 150-450 Platelet C ount, Automated [facility] ([facility]) ID Date Data Source [id number] 06/17/2020 07:47:00 AM EST [facility] ([facility]) Name Value Range Interpretation Code Description Data Marla rce(s) Supporting Document(s) magnesium level 1.7 mg/dL 1.8-2.4 Below low normal Magnesium Blu barba [facility] ([facility]) ID Date Data Source [id number] 06/17/2020 07:47:00 AM EST [facility] ([facility]) Name Value Range Interpretation Code Description Data Marla rce(s) Supporting Document(s) phosphorus level 2.8 mg/dL 2.5-4.9 Phosphorus Level AT [facility]) ID Date Data Source [id number] 06/17/2020 07:47:00 AM EST [facility] ([facility]) Name Value Range Interpretation Code Description Data Marla rce(s) Supporting Document(s) glucose, fasting 99 mg/dL 70-100 Glucose, Fasting AT [facility]) blood urea nitrogen 13 mg/dL 7-18 Blood Urea Nitro gen [facility] ([facility]) creatinine for GFR 1.12 mg/dL 0.70-1.30 Creatinine for GF R [facility] ([facility]) glomerular filtration rate > 60.0 >60 Glomerula r Filtration Rate [facility] ([facility]) sodium level 139 mEq/L 136-145 Sodium Level [facility] ([facility]) potassium serum 4.0 mEq/L 3.5-5.1 Potassium Serum [facility] ([facility]) chloride level 107 mEq/L 98-107 Chloride Level [facility] ([facility]) carbon dioxide level 25 mEq/L 21-32 Carbon Dioxide Level [facility] ([facility]) anion gap 7 mEq/L 8-16 Below low normal Anion Gap [facility] ( [facility]) calcium level 7.2 mg/dL 8.5-10.1 Below low normal Calcium Level AT [facility]) AST/SGOT 51 U/L 7-37 Above high normal AST/SGOT [facility] ([facility]) ALT/SGPT 63 U/L 12-78 ALT/SGPT [facility] ([facility]) bilirubin,total 0.9 mg/dL 0.2-1.0 Bilirubin,total [facility] ([facility]) alkaline phosphatase 98 U/L 45-117 Alkaline Phosph atase [facility] ([facility]) total protein 5.3 gm/dL 6.4-8.2 Below low normal Total Protein AT [facility] ([facility]) albumin 2.3 gm/dL 3.2-5.2 Below low normal Albumin [facility] ( [facility]) albumin/globulin ratio Albumin/globu mar Ratio [facility]) ID Date Data Source [id number] 06/17/2020 07:47:00 AM EST [facility] ([facility]) Name Value Range Interpretation Code Description Data Marla rce(s) Supporting Document(s) white blood count 11.3 10 4.0-10.0 Above high normal White Blood Count [facility] ([facility]) red blood count 3.88 10 4.30-6.10 Below low normal Red Blood Coun t [facility] ([facility]) hematocrit 34.6 % 42.0-52.0 Below low normal Hematocrit [facility] ( [facility]) hemoglobin 11.0 g/dL 13.5-17.5 Below low normal Hemoglobin [facility] ( [facility]) mean corpuscular hemoglobin 28.4 pg 27.0-33.0 Mean Cor puscular Hemoglobin [facility] ([facility]) mean corpuscular volume 89.2 fL 80.0-96.0 Mean Corpusc ular Volume [facility] ([facility]) red cell distribution width 13.7 % 11.5-14.5 Red Cell Distribution Width [facility] ([facility]) mean corpuscular HGB conc 31.8 g/dL 32.0-36.5 Below low darrel l Mean Corpuscular HGB Conc [facility] ([facility]) platelet count, automated 256 10 150-450 Platelet C ount, Automated [facility] ([facility]) nucleated red blood cell % 0.0 % 0-0 Nucleated Red Blood Cell % [facility] ([facility]) ID Date Data Source [id number] 06/16/2020 01:47:00 PM EST [facility] ([facility]) Name Value Range Interpretation Code Description Data Marla rce(s) Supporting Document(s) lipase 450 U/L 73-393 Above high normal Lipase [facility]) ID Date Data Source [id number] 06/16/2020 01:47:00 PM EST [facility] ([facility]) Name Value Range Interpretation Code Description Data Marla rce(s) Supporting Document(s) blood urea nitrogen 8 mg/dL 7-18 Blood Urea Nitro gen [facility] ([facility]) glucose, fasting 112 mg/dL 70-100 Above high normal Glucose, Fas ting [facility] ([facility]) creatinine for GFR 1.32 mg/dL 0.70-1.30 Above high normal Creatinine for GFR [facility] ([facility]) glomerular filtration rate > 60.0 >60 Glomerula r Filtration Rate [facility] ([facility]) chloride level 102 mEq/L 98-107 Chloride Level [facility] ([facility]) sodium level 136 mEq/L 136-145 Sodium Level [facility] ([facility]) potassium serum 4.0 mEq/L 3.5-5.1 Potassium Serum [facility] NA ([facility]) carbon dioxide level 27 mEq/L 21-32 Carbon Dioxide Level [facility] ([facility]) anion gap 7 mEq/L 8-16 Below low normal Anion Gap [facility] ( [facility]) calcium level 8.9 mg/dL 8.5-10.1 Calcium Level [facility] ( [facility]) ID Date Data Source [id number] 06/16/2020 01:47:00 PM EST [facility] ([facility]) Name Value Range Interpretation Code Description Data Marla rce(s) Supporting Document(s) AST/SGOT 51 U/L 7-37 Above high normal AST/SGOT [facility] ([facility]) alkaline phosphatase 116 U/L 45-117 Alkaline Phosph atase [facility] ([facility]) ALT/SGPT 74 U/L 12-78 ALT/SGPT [facility] ([facility]) bilirubin,direct 0.8 mg/dL 0.0-0.2 Above high normal Bilirubin,di rect [facility] ([facility]) bilirubin,total 1.1 mg/dL 0.2-1.0 Above high normal Bilirubin,tot al [facility] ([facility]) total protein 6.7 gm/dL 6.4-8.2 Total Protein [facility] ( [facility]) albumin 3.1 gm/dL 3.2-5.2 Below low normal Albumin [facility] ( [facility]) albumin/globulin ratio Albumin/globu mar Ratio [facility] ([facility]) ID Date Data Source [id number] 06/16/2020 01:47:00 PM EST [facility] ([facility]) Name Value Range Interpretation Code Description Data Marla rce(s) Supporting Document(s) prothrombin time 15.5 seconds 12.5-14.3 Above high normal Prothrombi n Time [facility] ([facility]) INR Inr [facility] ([facility]) ID Date Data Source [id number] 06/16/2020 01:47:00 PM EST [facility] ([facility]) Name Value Range Interpretation Code Description Data Marla rce(s) Supporting Document(s) red blood count 4.43 10 4.30-6.10 Red Blood Count [facility] ([facility]) white blood count 18.6 10 4.0-10.0 Above high normal White Blood Count [facility] ([facility]) hemoglobin 12.9 g/dL 13.5-17.5 Below low normal Hemoglobin [facility] ( [facility]) hematocrit 38.9 % 42.0-52.0 Below low normal Hematocrit [facility] ( [facility]) mean corpuscular volume 87.8 fL 80.0-96.0 Mean Corpusc ular Volume [facility] ([facility]) mean corpuscular HGB conc 33.2 g/dL 32.0-36.5 Mean Corpu scular HGB Conc [facility] ([facility]) mean corpuscular hemoglobin 29.1 pg 27.0-33.0 Mean Cor puscular Hemoglobin [facility] ([facility]) red cell distribution width 13.3 % 11.5-14.5 Red Cell Distribution Width [facility] ([facility]) platelet count, automated 347 10 150-450 Platelet C ount, Automated [facility] ([facility]) neutrophils % 93.0 % 36.0-66.0 Above high normal Neutrophils % A [facility] ([facility]) mono % 4.0 % 2.0-8.0 Freeborn % [facility] ([facility]) lymph % 1.7 % 24.0-44.0 Below low normal Lymph % [facility] ( [facility]) baso % 0.2 % 0.0-1.0 Baso % [facility] ([facility]) eos % 0.0 % 0.0-3.0 Eos % [facility] ([facility]) immature granulocyte % 1.1 % 0-3.0 Immature Gran ulocyte % [facility] ([facility]) nucleated red blood cell % 0.0 % 0-0 Nucleated Red Blood Cell % [facility] ([facility]) neutrophils # 17.3 10 1.5-8.5 Above high normal Neutrophils # A [facility] ([facility]) lymph # 0.3 10 1.5-5.0 Below low normal Lymph # [facility] ( [facility]) eos # 0.0 10 0.0-0.5 Eos # [facility] ([facility]) mono # 0.8 10 0.0-0.8 Free[place] # [facility] ([facility]) baso # 0.0 10 0.0-0.2 Baso # [facility] ([facility]) ID Date Data Source [id number] 06/16/2020 01:47:00 PM EST [facility] ([facility]) Name Value Range Interpretation Code Description Data Marla rce(s) Supporting Document(s) lipase 450 U/L 73-393 Above high normal Lipase [facility] ([facility]) ID Date Data Source [id number] 06/16/2020 01:47:00 PM EST [facility] ([facility]) Name Value Range Interpretation Code Description Data Marla rce(s) Supporting Document(s) glucose, fasting 112 mg/dL 70-100 Above high normal Glucose, Fas ting [facility] ([facility]) blood urea nitrogen 8 mg/dL 7-18 Blood Urea Nitro gen [facility] ([facility]) creatinine for GFR 1.32 mg/dL 0.70-1.30 Above high normal Creatinine for GFR [facility] ([facility]) glomerular filtration rate > 60.0 >60 Glomerula r Filtration Rate [facility] ([facility]) potassium serum 4.0 mEq/L 3.5-5.1 Potassium Serum [facility] NA ([facility]) sodium level 136 mEq/L 136-145 Sodium Level [facility] ([facility]) carbon dioxide level 27 mEq/L 21-32 Carbon Dioxide Level [facility] ([facility]) chloride level 102 mEq/L 98-107 Chloride Level [facility] ([facility]) anion gap 7 mEq/L 8-16 Below low normal Anion Gap [facility] ( [facility]) calcium level 8.9 mg/dL 8.5-10.1 Calcium Level [facility] ( [facility]) ID Date Data Source [id number] 06/16/2020 01:47:00 PM EST [facility] ([facility]) Name Value Range Interpretation Code Description Data Marla rce(s) Supporting Document(s) AST/SGOT 51 U/L 7-37 Above high normal AST/SGOT [facility] ([facility]) alkaline phosphatase 116 U/L 45-117 Alkaline Phosph atase [facility] ([facility]) ALT/SGPT 74 U/L 12-78 ALT/SGPT [facility] ([facility]) bilirubin,direct 0.8 mg/dL 0.0-0.2 Above high normal Bilirubin,di rect [facility] ([facility]) bilirubin,total 1.1 mg/dL 0.2-1.0 Above high normal Bilirubin,tot al [facility] ([facility]) albumin 3.1 gm/dL 3.2-5.2 Below low normal Albumin [facility] ( [facility]) total protein 6.7 gm/dL 6.4-8.2 Total Protein [facility] ( [facility]) albumin/globulin ratio Albumin/globu mar Ratio [facility]) ID Date Data Source [id number] 06/16/2020 01:47:00 PM EST [facility]) Name Value Range Interpretation Code Description Data Marla rce(s) Supporting Document(s) prothrombin time 15.5 seconds 12.5-14.3 Above high normal Prothrombi n Time [facility] ([facility]) INR Inr [facility] ([facility]) ID Date Data Source [id number] 06/16/2020 01:47:00 PM EST [facility] ([facility]) Name Value Range Interpretation Code Description Data Marla rce(s) Supporting Document(s) white blood count 18.6 10 4.0-10.0 Above high normal White Blood Count [facility] ([facility]) hemoglobin 12.9 g/dL 13.5-17.5 Below low normal Hemoglobin [facility] ( [facility]) red blood count 4.43 10 4.30-6.10 Red Blood Count [facility] ([facility]) mean corpuscular volume 87.8 fL 80.0-96.0 Mean Corpusc ular Volume [facility] ([facility]) hematocrit 38.9 % 42.0-52.0 Below low normal Hematocrit [facility] ( [facility]) mean corpuscular hemoglobin 29.1 pg 27.0-33.0 Mean Cor puscular Hemoglobin [facility] ([facility]) mean corpuscular HGB conc 33.2 g/dL 32.0-36.5 Mean Corpu scular HGB Conc [facility] ([facility]) red cell distribution width 13.3 % 11.5-14.5 Red Cell Distribution Width [facility] ([facility]) neutrophils % 93.0 % 36.0-66.0 Above high normal Neutrophils % A [facility] ([facility]) platelet count, automated 347 10 150-450 Platelet C ount, Automated [facility] ([facility]) lymph % 1.7 % 24.0-44.0 Below low normal Lymph % [facility] ( [facility]) mono % 4.0 % 2.0-8.0 [place] % [facility] ([facility]) baso % 0.2 % 0.0-1.0 Baso % [facility] ([facility]) eos % 0.0 % 0.0-3.0 Eos % [facility] ([facility]) immature granulocyte % 1.1 % 0-3.0 Immature Gran ulocyte % [facility] ([facility]) nucleated red blood cell % 0.0 % 0-0 Nucleated Red Blood Cell % [facility] ([facility]) neutrophils # 17.3 10 1.5-8.5 Above high normal Neutrophils # A [facility] ([facility]) lymph # 0.3 10 1.5-5.0 Below low normal Lymph # [facility] ( [facility]) mono # 0.8 10 0.0-0.8 [place] # [facility] ([facility]) baso # 0.0 10 0.0-0.2 Baso # [facility] ([facility]) eos # 0.0 10 0.0-0.5 Eos # [facility] ([facility]) ID Date Data Source [id number] 06/16/2020 01:47:00 PM EST [facility] ([facility]) Name Value Range Interpretation Code Description Data Marla rce(s) Supporting Document(s) lipase 450 U/L 73-393 Above high normal Lipase [facility] ([facility]) ID Date Data Source [id number] 06/16/2020 01:47:00 PM EST [facility] ([facility]) Name Value Range Interpretation Code Description Data Marla rce(s) Supporting Document(s) blood urea nitrogen 8 mg/dL 7-18 Blood Urea Nitro gen [facility] ([facility]) glucose, fasting 112 mg/dL 70-100 Above high normal Glucose, Fas ting [facility] ([facility]) creatinine for GFR 1.32 mg/dL 0.70-1.30 Above high normal Creatinine for GFR [facility] ([facility]) glomerular filtration rate > 60.0 >60 Glomerula r Filtration Rate [facility] ([facility]) potassium serum 4.0 mEq/L 3.5-5.1 Potassium Serum [facility] NA ([facility]) sodium level 136 mEq/L 136-145 Sodium Level [facility] ([facility]) chloride level 102 mEq/L 98-107 Chloride Level [facility] ([facility]) carbon dioxide level 27 mEq/L 21-32 Carbon Dioxide Level [facility] ([facility]) anion gap 7 mEq/L 8-16 Below low normal Anion Gap [facility] ( [facility]) calcium level 8.9 mg/dL 8.5-10.1 Calcium Level [facility] ( [facility]) ID Date Data Source [id number] 06/16/2020 01:47:00 PM EST [facility] ([facility]) Name Value Range Interpretation Code Description Data Marla rce(s) Supporting Document(s) AST/SGOT 51 U/L 7-37 Above high normal AST/SGOT [facility] ([facility]) ALT/SGPT 74 U/L 12-78 ALT/SGPT [facility] ([facility]) alkaline phosphatase 116 U/L 45-117 Alkaline Phosph atase [facility] ([facility]) bilirubin,total 1.1 mg/dL 0.2-1.0 Above high normal Bilirubin,tot al [facility] ([facility]) total protein 6.7 gm/dL 6.4-8.2 Total Protein [facility] ( [facility]) bilirubin,direct 0.8 mg/dL 0.0-0.2 Above high normal Bilirubin,di rect [facility] ([facility]) albumin 3.1 gm/dL 3.2-5.2 Below low normal Albumin [facility] ( [facility]) albumin/globulin ratio Albumin/globu mar Ratio [facility] ([facility]) ID Date Data Source [id number] 06/16/2020 01:47:00 PM EST [facility] ([facility]) Name Value Range Interpretation Code Description Data Marla rce(s) Supporting Document(s) prothrombin time 15.5 seconds 12.5-14.3 Above high normal Prothrombi n Time GAR[facility] ([facility]) INR Inr GAR[facility] ([facility]) ID Date Data Source [id number] 06/16/2020 01:47:00 PM EST GAR[facility] ([facility]) Name Value Range Interpretation Code Description Data Marla rce(s) Supporting Document(s) white blood count 18.6 10 4.0-10.0 Above high normal White Blood Count GAR[facility] ([facility]) red blood count 4.43 10 4.30-6.10 Red Blood Count ATHE ([facility]) hemoglobin 12.9 g/dL 13.5-17.5 Below low normal Hemoglobin GAR[facility] ( [facility]) hematocrit 38.9 % 42.0-52.0 Below low normal Hematocrit GAR[facility] ( [facility]) mean corpuscular volume 87.8 fL 80.0-96.0 Mean Corpusc ular Volume GAR[facility] ([facility]) mean corpuscular hemoglobin 29.1 pg 27.0-33.0 Mean Cor puscular Hemoglobin GAR[facility] ([facility]) mean corpuscular HGB conc 33.2 g/dL 32.0-36.5 Mean Corpu scular HGB Conc G[facility] ([facility]) platelet count, automated 347 10 150-450 Platelet C ount, Automated G[facility] ([facility]) red cell distribution width 13.3 % 11.5-14.5 Red Cell Distribution Width GARRET ([facility]) neutrophils % 93.0 % 36.0-66.0 Above high normal Neutrophils % A [facility] ([facility]) lymph % 1.7 % 24.0-44.0 Below low normal Lymph % GARRET ( [facility]) mono % 4.0 % 2.0-8.0 Free[place] % GARRET ([facility]) eos % 0.0 % 0.0-3.0 Eos % G[facility] ([facility]) baso % 0.2 % 0.0-1.0 Baso % G[facility] ([facility]) immature granulocyte % 1.1 % 0-3.0 Immature Gran ulocyte % GARRET ([facility]) nucleated red blood cell % 0.0 % 0-0 Nucleated Red Blood Cell % GARRET ([facility]) neutrophils # 17.3 10 1.5-8.5 Above high normal Neutrophils # A [facility] ([facility]) lymph # 0.3 10 1.5-5.0 Below low normal Lymph # GARRET ( [facility]) mono # 0.8 10 0.0-0.8 Free[place] # GARRET ([facility]) baso # 0.0 10 0.0-0.2 Baso # [facility] ([facility]) eos # 0.0 10 0.0-0.5 Eos # [facility] ([facility]) ID Date Data Source [id number] 06/16/2020 01:47:00 PM EST GARRET ([facility]) Name Value Range Interpretation Code Description Data Marla rce(s) Supporting Document(s) lipase 450 U/L 73-393 Above high normal Lipase ROSE BUD ([facility]) ID Date Data Source [id number] 06/16/2020 01:47:00 PM EST GARRET ([facility]) Name Value Range Interpretation Code Description Data Marla rce(s) Supporting Document(s) glucose, fasting 112 mg/dL 70-100 Above high normal Glucose, Fas ting ROSE BUD ([facility]) blood urea nitrogen 8 mg/dL 7-18 Blood Urea Nitro gen G[facility] ([facility]) creatinine for GFR 1.32 mg/dL 0.70-1.30 Above high normal Creatinine for GFR [facility] ([facility]) glomerular filtration rate > 60.0 >60 [place] r Filtration Rate G[facility] ([facility]) sodium level 136 mEq/L 136-145 Sodium Level G[facility] ([facility]) potassium serum 4.0 mEq/L 3.5-5.1 Potassium Serum ATHE NA ([facility]) chloride level 102 mEq/L 98-107 Chloride Level ROSE BUD ([facility]) anion gap 7 mEq/L 8-16 Below low normal Anion Gap GARRET ( [facility]) carbon dioxide level 27 mEq/L 21-32 Carbon Dioxide Level G[facility] ([facility]) calcium level 8.9 mg/dL 8.5-10.1 Calcium Level ROSE BUD ( [facility]) ID Date Data Source [id number] 06/16/2020 01:47:00 PM EST GARRET ([facility]) Name Value Range Interpretation Code Description Data Marla rce(s) Supporting Document(s) ALT/SGPT 74 U/L 12-78 ALT/SGPT [facility] ([facility]) AST/SGOT 51 U/L 7-37 Above high normal AST/SGOT [facility] ([facility]) alkaline phosphatase 116 U/L 45-117 Alkaline Phosph atase [facility] ([facility]) bilirubin,total 1.1 mg/dL 0.2-1.0 Above high normal Bilirubin,tot al [facility] ([facility]) bilirubin,direct 0.8 mg/dL 0.0-0.2 Above high normal Bilirubin,di rect G[facility] ([facility]) total protein 6.7 gm/dL 6.4-8.2 Total Protein G[facility] ( [facility]) albumin 3.1 gm/dL 3.2-5.2 Below low normal Albumin ROSE B[facility] ( [facility]) albumin/globulin ratio Albumin/globu mar Ratio [facility] ([facility]) ID Date Data Source [id number] 06/16/2020 01:47:00 PM EST GARRET ([facility]) Name Value Range Interpretation Code Description Data Marla rce(s) Supporting Document(s) prothrombin time 15.5 seconds 12.5-14.3 Above high normal Prothrombi n Time GARRET ([facility]) INR Inr [facility] ([facility]) ID Date Data Source [id number] 06/16/2020 01:47:00 PM EST GAR[facility] ([facility]) Name Value Range Interpretation Code Description Data Marla rce(s) Supporting Document(s) white blood count 18.6 10 4.0-10.0 Above high normal White Blood Count [facility] ([facility]) red blood count 4.43 10 4.30-6.10 Red Blood Count ATHE NA ([facility]) hematocrit 38.9 % 42.0-52.0 Below low normal Hematocrit [facility] ( [facility]) hemoglobin 12.9 g/dL 13.5-17.5 Below low normal Hemoglobin G[facility] ( [facility]) mean corpuscular volume 87.8 fL 80.0-96.0 Mean Corpusc ular Volume G[facility] ([facility]) mean corpuscular HGB conc 33.2 g/dL 32.0-36.5 Mean Corpu scular HGB Conc [facility] ([facility]) mean corpuscular hemoglobin 29.1 pg 27.0-33.0 Mean Cor puscular Hemoglobin [facility] ([facility]) red cell distribution width 13.3 % 11.5-14.5 Red Cell Distribution Width G[facility] ([facility]) platelet count, automated 347 10 150-450 Platelet C ount, Automated G[facility] ([facility]) lymph % 1.7 % 24.0-44.0 Below low normal Lymph % [facility] ( [facility]) mono % 4.0 % 2.0-8.0 Free[place] % [facility] ([facility]) neutrophils % 93.0 % 36.0-66.0 Above high normal Neutrophils % [facility] baso % 0.2 % 0.0-1.0 Baso % [facility] ([facility]) eos % 0.0 % 0.0-3.0 Eos % [facility] ([facility]) nucleated red blood cell % 0.0 % 0-0 Nucleated Red Blood Cell % [facility] ([facility]) immature granulocyte % 1.1 % 0-3.0 Immature Gran ulocyte % [facility] ([facility]) lymph # 0.3 10 1.5-5.0 Below low normal Lymph # G[facility]RET ( [facility]) neutrophils # 17.3 10 1.5-8.5 Above high normal Neutrophils # A [facility] ([facility]) eos # 0.0 10 0.0-0.5 Eos # [facility] ([facility]) mono # 0.8 10 0.0-0.8 Free[place] # G[facility] ([facility]) baso # 0.0 10 0.0-0.2 Baso # [facility] ([facility]) ID Date Data Source [id number] 06/16/2020 01:47:00 PM EST GARRET ([facility]) Name Value Range Interpretation Code Description Data Marla rce(s) Supporting Document(s) lipase 450 U/L 73-393 Above high normal Lipase [facility] ([facility]) ID Date Data Source [id number] 06/16/2020 01:47:00 PM EST GAR[facility] ([facility]) Name Value Range Interpretation Code Description Data Marla rce(s) Supporting Document(s) glucose, fasting 112 mg/dL 70-100 Above high normal Glucose, Fas ting G[facility] ([facility]) blood urea nitrogen 8 mg/dL 7-18 Blood Urea Nitro gen [facility] ([facility]) creatinine for GFR 1.32 mg/dL 0.70-1.30 Above high normal Creatinine for GFR RO[facility] B[facility] ([facility]) glomerular filtration rate > 60.0 >60 Glomer[place] r Filtration Rate ROSE BUD ([facility]) potassium serum 4.0 mEq/L 3.5-5.1 Potassium Serum ATHE NA ([facility]) sodium level 136 mEq/L 136-145 Sodium Level G[facility] ([facility]) carbon dioxide level 27 mEq/L 21-32 Carbon Dioxide Level GARRET ([facility]) chloride level 102 mEq/L 98-107 Chloride Level ROSE BUD ([facility]) anion gap 7 mEq/L 8-16 Below low normal Anion Gap GARRET ( [facility]) calcium level 8.9 mg/dL 8.5-10.1 Calcium Level ROSE BUD ( [facility]) ID Date Data Source [id number] 06/16/2020 01:47:00 PM EST GARRET ([facility]) Name Value Range Interpretation Code Description Data Marla rce(s) Supporting Document(s) AST/SGOT 51 U/L 7-37 Above high normal AST/SGOT [facility] ([facility]) alkaline phosphatase 116 U/L 45-117 Alkaline Phosph atase [facility] ([facility]) ALT/SGPT 74 U/L 12-78 ALT/SGPT [facility] ([facility]) bilirubin,total 1.1 mg/dL 0.2-1.0 Above high normal Bilirubin,tot al [facility] ([facility]) bilirubin,direct 0.8 mg/dL 0.0-0.2 Above high normal Bilirubin,di rect [facility] ([facility]) total protein 6.7 gm/dL 6.4-8.2 Total Protein ROSE BUD ( [facility]) albumin/globulin ratio Albumin/globu mar Ratio G[facility] ([facility]) albumin 3.1 gm/dL 3.2-5.2 Below low normal Albumin ROSE [facility] ( [facility]) ID Date Data Source [id number] 06/16/2020 01:47:00 PM EST GARRET ([facility]) Name Value Range Interpretation Code Description Data Marla rce(s) Supporting Document(s) prothrombin time 15.5 seconds 12.5-14.3 Above high normal Prothrombi n Time GAR[facility] ([facility]) INR Inr G[facility] ([facility]) ID Date Data Source [id number] 06/16/2020 01:47:00 PM EST G[facility] ([facility]) Name Value Range Interpretation Code Description Data Marla rce(s) Supporting Document(s) red blood count 4.43 10 4.30-6.10 Red Blood Count ATHE NA ([facility]) white blood count 18.6 10 4.0-10.0 Above high normal White Blood Count G[facility] ([facility]) hematocrit 38.9 % 42.0-52.0 Below low normal Hematocrit [facility] ( [facility]) hemoglobin 12.9 g/dL 13.5-17.5 Below low normal Hemoglobin G[facility] ( [facility]) mean corpuscular volume 87.8 fL 80.0-96.0 Mean Corpusc ular Volume [facility] ([facility]) mean corpuscular hemoglobin 29.1 pg 27.0-33.0 Mean Cor puscular Hemoglobin G[facility] ([facility]) red cell distribution width 13.3 % 11.5-14.5 Red Cell Distribution Width G[facility] ([facility]) mean corpuscular HGB conc 33.2 g/dL 32.0-36.5 Mean Corpu scular HGB Conc G[facility] ([facility]) platelet count, automated 347 10 150-450 Platelet C ount, Automated G[facility] ([facility]) lymph % 1.7 % 24.0-44.0 Below low normal Lymph % G[facility]RET ( [facility]) neutrophils % 93.0 % 36.0-66.0 Above high normal Neutrophils % A [facility] ([facility]) eos % 0.0 % 0.0-3.0 Eos % ROSE BUD ([facility]) mono % 4.0 % 2.0-8.0 [place] % G[facility] ([facility]) immature granulocyte % 1.1 % 0-3.0 Immature Gran ulocyte % [facility] ([facility]) baso % 0.2 % 0.0-1.0 Baso % [facility] ([facility]) nucleated red blood cell % 0.0 % 0-0 Nucleated Red Blood Cell % [facility] ([facility]) neutrophils # 17.3 10 1.5-8.5 Above high normal Neutrophils # A [facility] ([facility]) lymph # 0.3 10 1.5-5.0 Below low normal Lymph # G[facility] ( [facility]) mono # 0.8 10 0.0-0.8 [place] # G[facility] ([facility]) eos # 0.0 10 0.0-0.5 Eos # [facility] ([facility]) baso # 0.0 10 0.0-0.2 Baso # [facility] ([facility]) ID Date Data Source [id number] 06/16/2020 01:47:00 PM EST GARRET ([facility]) Name Value Range Interpretation Code Description Data Marla rce(s) Supporting Document(s) lipase 450 U/L 73-393 Above high normal Lipase [facility] ([facility]) ID Date Data Source [id number] 06/16/2020 01:47:00 PM EST G[facility] ([facility]) Name Value Range Interpretation Code Description Data Marla rce(s) Supporting Document(s) glucose, fasting 112 mg/dL 70-100 Above high normal Glucose, Fas ting G[facility] ([facility]) blood urea nitrogen 8 mg/dL 7-18 Blood Urea Nitro gen [facility] ([facility]) creatinine for GFR 1.32 mg/dL 0.70-1.30 Above high normal Creatinine for GFR [facility] ([facility]) glomerular filtration rate > 60.0 >60 [place] r Filtration Rate G[facility] ([facility]) sodium level 136 mEq/L 136-145 Sodium Level GARRET ([facility]) potassium serum 4.0 mEq/L 3.5-5.1 Potassium Serum ATHE NA ([facility]) carbon dioxide level 27 mEq/L 21-32 Carbon Dioxide Level ROSE BUD ([facility]) chloride level 102 mEq/L 98-107 Chloride Level ROSE BUD ([facility]) anion gap 7 mEq/L 8-16 Below low normal Anion Gap G[facility] ( [facility]) calcium level 8.9 mg/dL 8.5-10.1 Calcium Level ROSE BUD ( [facility]) ID Date Data Source [id number] 06/16/2020 01:47:00 PM EST GARRET ([facility]) Name Value Range Interpretation Code Description Data Marla rce(s) Supporting Document(s) ALT/SGPT 74 U/L 12-78 ALT/SGPT [facility] ([facility]) AST/SGOT 51 U/L 7-37 Above high normal AST/SGOT [facility] ([facility]) alkaline phosphatase 116 U/L 45-117 Alkaline Phosph atase [facility] ([facility]) bilirubin,total 1.1 mg/dL 0.2-1.0 Above high normal Bilirubin,tot al [facility] ([facility]) total protein 6.7 gm/dL 6.4-8.2 Total Protein [facility] ( [facility]) bilirubin,direct 0.8 mg/dL 0.0-0.2 Above high normal Bilirubin,di rect [facility] ([facility]) albumin/globulin ratio Albumin/globu mar Ratio [facility] ([facility]) albumin 3.1 gm/dL 3.2-5.2 Below low normal Albumin [facility] ( [facility]) ID Date Data Source [id number] 06/16/2020 01:47:00 PM EST G[facility] ([facility]) Name Value Range Interpretation Code Description Data Marla rce(s) Supporting Document(s) INR Inr [facility] ([facility]) prothrombin time 15.5 seconds 12.5-14.3 Above high normal Prothrombi n Time [facility] ([facility]) ID Date Data Source [id number] 06/16/2020 01:47:00 PM EST G[facility] ([facility]) Name Value Range Interpretation Code Description Data Marla rce(s) Supporting Document(s) white blood count 18.6 10 4.0-10.0 Above high normal White Blood Count [facility] ([facility]) red blood count 4.43 10 4.30-6.10 Red Blood Count ATHE ([facility]) hematocrit 38.9 % 42.0-52.0 Below low normal Hematocrit [facility] ( [facility]) hemoglobin 12.9 g/dL 13.5-17.5 Below low normal Hemoglobin [facility] ( [facility]) mean corpuscular volume 87.8 fL 80.0-96.0 Mean Corpusc ular Volume [facility] ([facility]) mean corpuscular hemoglobin 29.1 pg 27.0-33.0 Mean Cor puscular Hemoglobin [facility] ([facility]) red cell distribution width 13.3 % 11.5-14.5 Red Cell Distribution Width [facility] ([facility]) mean corpuscular HGB conc 33.2 g/dL 32.0-36.5 Mean Corpu scular HGB Conc [facility] ([facility]) platelet count, automated 347 10 150-450 Platelet C ount, Automated [facility] ([facility]) lymph % 1.7 % 24.0-44.0 Below low normal Lymph % [facility] ( [facility]) neutrophils % 93.0 % 36.0-66.0 Above high normal Neutrophils % A [facility] ([facility]) mono % 4.0 % 2.0-8.0 [place] % [facility] ([facility]) eos % 0.0 % 0.0-3.0 Eos % [facility] ([facility]) immature granulocyte % 1.1 % 0-3.0 Immature Gran ulocyte % [facility] ([facility]) baso % 0.2 % 0.0-1.0 Baso % [facility] ([facility]) nucleated red blood cell % 0.0 % 0-0 Nucleated Red Blood Cell % [facility] ([facility]) neutrophils # 17.3 10 1.5-8.5 Above high normal Neutrophils # A THE[facility] ([facility]) mono # 0.8 10 0.0-0.8 [place] # [facility] ([facility]) lymph # 0.3 10 1.5-5.0 Below low normal Lymph # [facility] ( [facility]) baso # 0.0 10 0.0-0.2 Baso # [facility] ([facility]) eos # 0.0 10 0.0-0.5 Eos # [facility] ([facility]) ID Date Data Source [id number] 06/04/2020 08:02:00 AM EST G[facility] ([facility]) Name Value Range Interpretation Code Description Data Marla rce(s) Supporting Document(s) lipase 281 U/L 73-393 Lipase [facility] ([facility]) ID Date Data Source [id number] 06/04/2020 08:02:00 AM EST [facility] ([facility]) Name Value Range Interpretation Code Description Data Marla rce(s) Supporting Document(s) glucose, fasting 82 mg/dL 70-100 Glucose, Fasting AT [facility] ([facility]) creatinine for GFR 0.81 mg/dL 0.70-1.30 Creatinine for GF R G[facility] ([facility]) blood urea nitrogen 15 mg/dL 7-18 Blood Urea Nitro gen [facility] ([facility]) glomerular filtration rate > 60.0 >60 [place] r Filtration Rate [facility] ([facility]) chloride level 103 mEq/L 98-107 Chloride Level [facility] ([facility]) potassium serum 4.0 mEq/L 3.5-5.1 Potassium Serum ATHE NA ([facility]) sodium level 140 mEq/L 136-145 Sodium Level [facility] ([facility]) anion gap 8 mEq/L 8-16 Anion Gap [facility] ([facility]) carbon dioxide level 29 mEq/L 21-32 Carbon Dioxide Level [facility] ([facility]) ALT/SGPT 77 U/L 12-78 ALT/SGPT [facility] ([facility]) calcium level 8.6 mg/dL 8.5-10.1 Calcium Level [facility] ( [facility]) AST/SGOT 27 U/L 7-37 AST/SGOT [facility] ([facility]) bilirubin,total 2.7 mg/dL 0.2-1.0 Above high normal Bilirubin,tot al [facility] ([facility]) alkaline phosphatase 139 U/L 45-117 Above high normal Alkaline Phosphatase [facility] ([facility]) total protein 6.4 gm/dL 6.4-8.2 Total Protein [facility] ( [facility]) albumin/globulin ratio Albumin/globu mar Ratio [facility] ([facility]) albumin 2.9 gm/dL 3.2-5.2 Below low normal Albumin [facility] ( [facility]) ID Date Data Source [id number] 06/04/2020 08:02:00 AM EST [facility] ([facility]) Name Value Range Interpretation Code Description Data Marla rce(s) Supporting Document(s) red blood count 4.57 10 4.30-6.10 Red Blood Count ATHE NA ([facility]) white blood count 12.9 10 4.0-10.0 Above high normal White Blood Count [facility] ([facility]) hematocrit 39.9 % 42.0-52.0 Below low normal Hematocrit [facility] ( [facility]) hemoglobin 13.0 g/dL 13.5-17.5 Below low normal Hemoglobin [facility] ( [facility]) mean corpuscular HGB conc 32.6 g/dL 32.0-36.5 Mean Corpu scular HGB Conc [facility] ([facility]) mean corpuscular hemoglobin 28.4 pg 27.0-33.0 Mean Cor puscular Hemoglobin [facility] ([facility]) mean corpuscular volume 87.3 fL 80.0-96.0 Mean Corpusc ular Volume [facility] ([facility]) platelet count, automated 262 10 150-450 Platelet C ount, Automated [facility] ([facility]) red cell distribution width 13.9 % 11.5-14.5 Red Cell Distribution Width [facility] ([facility]) lymph % 10.7 % 24.0-44.0 Below low normal Lymph % [facility] ( [facility]) neutrophils % 73.6 % 36.0-66.0 Above high normal Neutrophils % A [facility] ([facility]) mono % 12.9 % 0.0-5.0 Above high normal [place] % [facility] ([facility]) eos % 1.8 % 0.0-3.0 Eos % [facility] ([facility]) baso % 0.2 % 0.0-1.0 Baso % [facility] ([facility]) immature granulocyte % 0.8 % 0-3.0 Immature Gran ulocyte % [facility] ([facility]) neutrophils # 9.5 10 1.5-8.5 Above high normal Neutrophils # A [facility] ([facility]) nucleated red blood cell % 0.0 % 0-0 Nucleated Red Blood Cell % [facility] ([facility]) lymph # 1.4 10 1.5-5.0 Below low normal Lymph # [facility] ( [facility]) eos # 0.2 10 0.0-0.5 Eos # [facility] ([facility]) mono # 1.7 10 0.0-0.8 Above high normal [place] # [facility] ([facility]) baso # 0.0 10 0.0-0.2 Baso # [facility] ([facility]) ID Date Data Source [id number] 06/04/2020 08:02:00 AM EST G[facility] ([facility]) Name Value Range Interpretation Code Description Data Marla rce(s) Supporting Document(s) lipase 281 U/L 73-393 Lipase ROSE BUD ([facility]) ID Date Data Source [id number] 06/04/2020 08:02:00 AM EST [facility] ([facility] Clinics) Name Value Range Interpretation Code Description Data Marla rce(s) Supporting Document(s) glucose, fasting 82 mg/dL 70-100 Glucose, Fasting AT [facility]) creatinine for GFR 0.81 mg/dL 0.70-1.30 Creatinine for GF R ROSE BUD ([facility]) blood urea nitrogen 15 mg/dL 7-18 Blood Urea Nitro gen GARRET ([facility]) glomerular filtration rate > 60.0 >60 Gl[place] r Filtration Rate GARRET ([facility]) sodium level 140 mEq/L 136-145 Sodium Level GARRET ([facility]) chloride level 103 mEq/L 98-107 Chloride Level GARRET ([facility]) carbon dioxide level 29 mEq/L 21-32 Carbon Dioxide Level ROSE BUD ([facility]) potassium serum 4.0 mEq/L 3.5-5.1 Potassium Serum ATHE NA ([facility]) calcium level 8.6 mg/dL 8.5-10.1 Calcium Level GARRET ( [facility]) anion gap 8 mEq/L 8-16 Anion Gap GAR[facility] ([facility]) AST/SGOT 27 U/L 7-37 AST/SGOT G[facility] ([facility]) ALT/SGPT 77 U/L 12-78 ALT/SGPT G[facility] ([facility]) alkaline phosphatase 139 U/L 45-117 Above high normal Alkaline Phosphatase GARRET ([facility]) total protein 6.4 gm/dL 6.4-8.2 Total Protein GARRET ( [facility]) bilirubin,total 2.7 mg/dL 0.2-1.0 Above high normal Bilirubin,tot al GARRET ([facility]) albumin 2.9 gm/dL 3.2-5.2 Below low normal Albumin GARRET ( [facility]) albumin/globulin ratio Albumin/globu mar Ratio GARRET ([facility]) ID Date Data Source [id number] 06/04/2020 08:02:00 AM EST G[facility] ([facility]) Name Value Range Interpretation Code Description Data Marla rce(s) Supporting Document(s) white blood count 12.9 10 4.0-10.0 Above high normal White Blood Count G[facility] ([facility]) red blood count 4.57 10 4.30-6.10 Red Blood Count ATHE ([facility]) hematocrit 39.9 % 42.0-52.0 Below low normal Hematocrit GARRET ( [facility]) hemoglobin 13.0 g/dL 13.5-17.5 Below low normal Hemoglobin GARRET ( [facility]) mean corpuscular hemoglobin 28.4 pg 27.0-33.0 Mean Cor puscular Hemoglobin GARRET ([facility]) mean corpuscular volume 87.3 fL 80.0-96.0 Mean Corpusc ular Volume G[facility]RET ([facility]) red cell distribution width 13.9 % 11.5-14.5 Red Cell Distribution Width G[facility] ([facility]) platelet count, automated 262 10 150-450 Platelet C ount, Automated G[facility]RET ([facility]) mean corpuscular HGB conc 32.6 g/dL 32.0-36.5 Mean Corpu scular HGB Conc G[facility] ([facility]) lymph % 10.7 % 24.0-44.0 Below low normal Lymph % G[facility]RET ( [facility]) neutrophils % 73.6 % 36.0-66.0 Above high normal Neutrophils % A [facility] ([facility]) mono % 12.9 % 0.0-5.0 Above high normal Freeborn % G[facility]RET ([facility]) eos % 1.8 % 0.0-3.0 Eos % G[facility] ([facility]) baso % 0.2 % 0.0-1.0 Baso % G[facility] ([facility]) immature granulocyte % 0.8 % 0-3.0 Immature Gran ulocyte % G[facility] ([facility]) neutrophils # 9.5 10 1.5-8.5 Above high normal Neutrophils # [facility] nucleated red blood cell % 0.0 % 0-0 Nucleated Red Blood Cell % G[facility] ([facility]) lymph # 1.4 10 1.5-5.0 Below low normal Lymph # G[facility]RET ( [facility]) eos # 0.2 10 0.0-0.5 Eos # G[facility] ([facility]) mono # 1.7 10 0.0-0.8 Above high normal Freeborn # G[facility]RET ([facility]) baso # 0.0 10 0.0-0.2 Baso # [facility] ([facility]) ID Date Data Source [id number] 06/04/2020 08:02:00 AM EST [facility] ([facility]) Name Value Range Interpretation Code Description Data Marla rce(s) Supporting Document(s) lipase 281 U/L 73-393 Lipase G[facility] ([facility]) ID Date Data Source [id number] 06/04/2020 08:02:00 AM EST [facility] ([facility]) Name Value Range Interpretation Code Description Data Marla rce(s) Supporting Document(s) glucose, fasting 82 mg/dL 70-100 Glucose, Fasting AT [facility] ([facility]) blood urea nitrogen 15 mg/dL 7-18 Blood Urea Nitro gen GAR[facility] ([facility]) glomerular filtration rate > 60.0 >60 Glomerula r Filtration Rate G[facility] ([facility]) creatinine for GFR 0.81 mg/dL 0.70-1.30 Creatinine for GF R GARRET ([facility]) sodium level 140 mEq/L 136-145 Sodium Level [facility] ([facility]) chloride level 103 mEq/L 98-107 Chloride Level G[facility] ([facility]) potassium serum 4.0 mEq/L 3.5-5.1 Potassium Serum ATHE NA ([facility]) carbon dioxide level 29 mEq/L 21-32 Carbon Dioxide Level G[facility]RET ([facility]) calcium level 8.6 mg/dL 8.5-10.1 Calcium Level GARRET ( [facility]) anion gap 8 mEq/L 8-16 Anion Gap G[facility] ([facility]) AST/SGOT 27 U/L 7-37 AST/SGOT [facility] ([facility]) ALT/SGPT 77 U/L 12-78 ALT/SGPT [facility] ([facility]) alkaline phosphatase 139 U/L 45-117 Above high normal Alkaline Phosphatase [facility] ([facility]) bilirubin,total 2.7 mg/dL 0.2-1.0 Above high normal Bilirubin,tot al G[facility] ([facility]) total protein 6.4 gm/dL 6.4-8.2 Total Protein G[facility] ( [facility]) albumin/globulin ratio Albumin/globu mar Ratio G[facility]RET ([facility]) albumin 2.9 gm/dL 3.2-5.2 Below low normal Albumin [facility] ( [facility]) ID Date Data Source [id number] 06/04/2020 08:02:00 AM EST [facility] ([facility]) Name Value Range Interpretation Code Description Data Marla rce(s) Supporting Document(s) white blood count 12.9 10 4.0-10.0 Above high normal White Blood Count [facility] ([facility]) red blood count 4.57 10 4.30-6.10 Red Blood Count ATHE NA ([facility]) hemoglobin 13.0 g/dL 13.5-17.5 Below low normal Hemoglobin G[facility] ( [facility]) hematocrit 39.9 % 42.0-52.0 Below low normal Hematocrit [facility] ( [facility]) mean corpuscular volume 87.3 fL 80.0-96.0 Mean Corpusc ular Volume GARRET ([facility]) mean corpuscular hemoglobin 28.4 pg 27.0-33.0 Mean Cor puscular Hemoglobin G[facility]RET ([facility]) mean corpuscular HGB conc 32.6 g/dL 32.0-36.5 Mean Corpu scular HGB Conc [facility] ([facility]) red cell distribution width 13.9 % 11.5-14.5 Red Cell Distribution Width [facility] ([facility]) platelet count, automated 262 10 150-450 Platelet C ount, Automated G[facility] ([facility]) neutrophils % 73.6 % 36.0-66.0 Above high normal Neutrophils % A [facility] ([facility]) lymph % 10.7 % 24.0-44.0 Below low normal Lymph % [facility] ( [facility]) eos % 1.8 % 0.0-3.0 Eos % [facility] ([facility]) mono % 12.9 % 0.0-5.0 Above high normal Freeborn % G[facility] ([facility]) baso % 0.2 % 0.0-1.0 Baso % G[facility] ([facility]) immature granulocyte % 0.8 % 0-3.0 Immature Gran ulocyte % G[facility]RET ([facility]) nucleated red blood cell % 0.0 % 0-0 Nucleated Red Blood Cell % [facility] ([facility]) neutrophils # 9.5 10 1.5-8.5 Above high normal Neutrophils # A [facility] ([facility]) lymph # 1.4 10 1.5-5.0 Below low normal Lymph # [facility]RET ( [facility]) eos # 0.2 10 0.0-0.5 Eos # [facility] ([facility]) mono # 1.7 10 0.0-0.8 Above high normal Freeborn # G[facility]RET ([facility]) baso # 0.0 10 0.0-0.2 Baso # [facility] ([facility]) ID Date Data Source [id number] 06/04/2020 08:02:00 AM EST [facility] ([facility]) Name Value Range Interpretation Code Description Data Marla rce(s) Supporting Document(s) lipase 281 U/L 73-393 Lipase [facility] ([facility]) ID Date Data Source [id number] 06/04/2020 08:02:00 AM EST [facility] ([facility]) Name Value Range Interpretation Code Description Data Marla rce(s) Supporting Document(s) glucose, fasting 82 mg/dL 70-100 Glucose, Fasting AT [facility] ([facility]) creatinine for GFR 0.81 mg/dL 0.70-1.30 Creatinine for GF R ROSE BUD ([facility]) blood urea nitrogen 15 mg/dL 7-18 Blood Urea Nitro gen GARRET ([facility]) glomerular filtration rate > 60.0 >60 Glomerula r Filtration Rate ROSE BUD ([facility]) sodium level 140 mEq/L 136-145 Sodium Level G[facility]RET ([facility]) potassium serum 4.0 mEq/L 3.5-5.1 Potassium Serum ATH NA ([facility]) chloride level 103 mEq/L 98-107 Chloride Level ROSE BUD ([facility]) anion gap 8 mEq/L 8-16 Anion Gap G[facility] ([facility]) carbon dioxide level 29 mEq/L 21-32 Carbon Dioxide Level [facility]RET ([facility]) calcium level 8.6 mg/dL 8.5-10.1 Calcium Level ROSE BUD ( [facility]) ALT/SGPT 77 U/L 12-78 ALT/SGPT RO[facility] BUD ([facility]) AST/SGOT 27 U/L 7-37 AST/SGOT RO[facility] BUD ([facility]) bilirubin,total 2.7 mg/dL 0.2-1.0 Above high normal Bilirubin,tot al G[facility] ([facility]) alkaline phosphatase 139 U/L 45-117 Above high normal Alkaline Phosphatase [facility] ([facility]) total protein 6.4 gm/dL 6.4-8.2 Total Protein [facility] ( [facility]) albumin 2.9 gm/dL 3.2-5.2 Below low normal Albumin G[facility] ( [facility]) albumin/globulin ratio Albumin/globu mar Ratio G[facility] ([facility]) ID Date Data Source [id number] 06/04/2020 08:02:00 AM EST [facility] BUD ([facility]) Name Value Range Interpretation Code Description Data Marla rce(s) Supporting Document(s) white blood count 12.9 10 4.0-10.0 Above high normal White Blood Count ROSE BUD ([facility]) red blood count 4.57 10 4.30-6.10 Red Blood Count [facility] ([facility]) hematocrit 39.9 % 42.0-52.0 Below low normal Hematocrit [facility] ( [facility]) hemoglobin 13.0 g/dL 13.5-17.5 Below low normal Hemoglobin G[facility] ( [facility]) mean corpuscular volume 87.3 fL 80.0-96.0 Mean Corpusc ular Volume G[facility]RET ([facility]) mean corpuscular HGB conc 32.6 g/dL 32.0-36.5 Mean Corpu scular HGB Conc [facility] ([facility]) mean corpuscular hemoglobin 28.4 pg 27.0-33.0 Mean Cor puscular Hemoglobin [facility] ([facility]) red cell distribution width 13.9 % 11.5-14.5 Red Cell Distribution Width [facility] ([facility]) platelet count, automated 262 10 150-450 Platelet C ount, Automated G[facility] ([facility]) lymph % 10.7 % 24.0-44.0 Below low normal Lymph % [facility] ( [facility]) neutrophils % 73.6 % 36.0-66.0 Above high normal Neutrophils % [place] [facility] ([facility]) mono % 12.9 % 0.0-5.0 Above high normal Freeborn % [facility] ([facility]) eos % 1.8 % 0.0-3.0 Eos % [facility] ([facility]) baso % 0.2 % 0.0-1.0 Baso % [facility] ([facility]) immature granulocyte % 0.8 % 0-3.0 Immature Gran ulocyte % [facility] ([facility]) nucleated red blood cell % 0.0 % 0-0 Nucleated Red Blood Cell % [facility] ([facility]) mono # 1.7 10 0.0-0.8 Above high normal Freeborn # G[facility]RET ([facility]) lymph # 1.4 10 1.5-5.0 Below low normal Lymph # G[facility]RET ( [facility]) neutrophils # 9.5 10 1.5-8.5 Above high normal Neutrophils # A [facility] ([facility]) eos # 0.2 10 0.0-0.5 Eos # [facility] ([facility]) baso # 0.0 10 0.0-0.2 Baso # [facility] ([facility]) ID Date Data Source [id number] 06/04/2020 08:02:00 AM EST [facility] ([facility]) Name Value Range Interpretation Code Description Data Marla rce(s) Supporting Document(s) lipase 281 U/L 73-393 Lipase [facility] ([facility]) ID Date Data Source [id number] 06/04/2020 08:02:00 AM EST [facility] ([facility]) Name Value Range Interpretation Code Description Data Marla rce(s) Supporting Document(s) creatinine for GFR 0.81 mg/dL 0.70-1.30 Creatinine for GF R ROSE BUD ([facility]) glucose, fasting 82 mg/dL 70-100 Glucose, Fasting AT [facility] ([facility]) blood urea nitrogen 15 mg/dL 7-18 Blood Urea Nitro gen [facility] ([facility]) potassium serum 4.0 mEq/L 3.5-5.1 Potassium Serum ATHE NA ([facility]) sodium level 140 mEq/L 136-145 Sodium Level G[facility]RET ([facility]) glomerular filtration rate > 60.0 >60 Glomerula r Filtration Rate G[facility] ([facility]) anion gap 8 mEq/L 8-16 Anion Gap G[facility] ([facility]) chloride level 103 mEq/L 98-107 Chloride Level [facility] ([facility]) carbon dioxide level 29 mEq/L 21-32 Carbon Dioxide Level [facility] ([facility]) calcium level 8.6 mg/dL 8.5-10.1 Calcium Level [facility] ( [facility]) AST/SGOT 27 U/L 7-37 AST/SGOT [facility] ([facility]) alkaline phosphatase 139 U/L 45-117 Above high normal Alkaline Phosphatase [facility] ([facility]) bilirubin,total 2.7 mg/dL 0.2-1.0 Above high normal Bilirubin,tot al [facility] ([facility]) ALT/SGPT 77 U/L 12-78 ALT/SGPT [facility] ([facility]) total protein 6.4 gm/dL 6.4-8.2 Total Protein G[facility] ( [facility]) albumin 2.9 gm/dL 3.2-5.2 Below low normal Albumin G[facility] ( [facility]) albumin/globulin ratio Albumin/globu mar Ratio [facility] ([facility]) ID Date Data Source [id number] 06/04/2020 08:02:00 AM EST [facility] ([facility]) Name Value Range Interpretation Code Description Data Marla rce(s) Supporting Document(s) white blood count 12.9 10 4.0-10.0 Above high normal White Blood Count [facility] ([facility]) red blood count 4.57 10 4.30-6.10 Red Blood Count ATHE ([facility]) hemoglobin 13.0 g/dL 13.5-17.5 Below low normal Hemoglobin [facility] ( [facility]) hematocrit 39.9 % 42.0-52.0 Below low normal Hematocrit [facility] ( [facility]) mean corpuscular volume 87.3 fL 80.0-96.0 Mean Corpusc ular Volume G[facility] ([facility]) mean corpuscular hemoglobin 28.4 pg 27.0-33.0 Mean Cor puscular Hemoglobin [facility] ([facility]) red cell distribution width 13.9 % 11.5-14.5 Red Cell Distribution Width [facility] ([facility]) mean corpuscular HGB conc 32.6 g/dL 32.0-36.5 Mean Corpu scular HGB Conc [facility] ([facility]) lymph % 10.7 % 24.0-44.0 Below low normal Lymph % [facility] ( [facility]) neutrophils % 73.6 % 36.0-66.0 Above high normal Neutrophils % A [facility] ([facility]) platelet count, automated 262 10 150-450 Platelet C ount, Automated [facility] ([facility]) eos % 1.8 % 0.0-3.0 Eos % [facility] ([facility]) mono % 12.9 % 0.0-5.0 Above high normal Freeborn % G[facility] ([facility]) immature granulocyte % 0.8 % 0-3.0 Immature Gran ulocyte % G[facility]RET ([facility]) nucleated red blood cell % 0.0 % 0-0 Nucleated Red Blood Cell % [facility] ([facility]) baso % 0.2 % 0.0-1.0 Baso % [facility] ([facility]) lymph # 1.4 10 1.5-5.0 Below low normal Lymph # [facility] ( [facility]) mono # 1.7 10 0.0-0.8 Above high normal Freeborn # [facility] ([facility]) neutrophils # 9.5 10 1.5-8.5 Above high normal Neutrophils # A [facility] ([facility]) eos # 0.2 10 0.0-0.5 Eos # [facility] ([facility]) baso # 0.0 10 0.0-0.2 Baso # [facility] ([facility]) ID Date Data Source [id number] 06/04/2020 08:02:00 AM EST [facility] ([facility]) Name Value Range Interpretation Code Description Data Marla rce(s) Supporting Document(s) lipase 281 U/L 73-393 Lipase [facility] ([facility]) ID Date Data Source [id number] 06/04/2020 08:02:00 AM EST [facility] ([facility]) Name Value Range Interpretation Code Description Data Marla rce(s) Supporting Document(s) glucose, fasting 82 mg/dL 70-100 Glucose, Fasting AT [facility] ([facility]) blood urea nitrogen 15 mg/dL 7-18 Blood Urea Nitro gen ROSE BUD ([facility]) creatinine for GFR 0.81 mg/dL 0.70-1.30 Creatinine for GF R RO[facility] BUD ([facility]) potassium serum 4.0 mEq/L 3.5-5.1 Potassium Serum ATHE NA ([facility]) glomerular filtration rate > 60.0 >60 Glomerula r Filtration Rate G[facility] ([facility]) sodium level 140 mEq/L 136-145 Sodium Level [facility] ([facility]) chloride level 103 mEq/L 98-107 Chloride Level [facility] ([facility]) carbon dioxide level 29 mEq/L 21-32 Carbon Dioxide Level ROSE BUD ([facility]) anion gap 8 mEq/L 8-16 Anion Gap G[facility] ([facility]) calcium level 8.6 mg/dL 8.5-10.1 Calcium Level [facility] ( [facility]) AST/SGOT 27 U/L 7-37 AST/SGOT [facility] ([facility]) alkaline phosphatase 139 U/L 45-117 Above high normal Alkaline Phosphatase [facility] ([facility]) ALT/SGPT 77 U/L 12-78 ALT/SGPT [facility] ([facility]) total protein 6.4 gm/dL 6.4-8.2 Total Protein G[facility] ( [facility]) bilirubin,total 2.7 mg/dL 0.2-1.0 Above high normal Bilirubin,tot al [facility] ([facility]) albumin/globulin ratio Albumin/globu mar Ratio [facility] ([facility]) albumin 2.9 gm/dL 3.2-5.2 Below low normal Albumin [facility] ( [facility]) ID Date Data Source [id number] 06/04/2020 08:02:00 AM EST [facility] ([facility]) Name Value Range Interpretation Code Description Data Marla rce(s) Supporting Document(s) white blood count 12.9 10 4.0-10.0 Above high normal White Blood Count [facility] ([facility]) hemoglobin 13.0 g/dL 13.5-17.5 Below low normal Hemoglobin [facility] ( [facility]) red blood count 4.57 10 4.30-6.10 Red Blood Count ATHE NA ([facility]) mean corpuscular volume 87.3 fL 80.0-96.0 Mean Corpusc ular Volume [facility] ([facility]) hematocrit 39.9 % 42.0-52.0 Below low normal Hematocrit [facility] ( [facility]) mean corpuscular hemoglobin 28.4 pg 27.0-33.0 Mean Cor puscular Hemoglobin [facility] ([facility]) mean corpuscular HGB conc 32.6 g/dL 32.0-36.5 Mean Corpu scular HGB Conc [facility] ([facility]) platelet count, automated 262 10 150-450 Platelet C ount, Automated [facility] ([facility]) neutrophils % 73.6 % 36.0-66.0 Above high normal Neutrophils % A [facility] ([facility]) red cell distribution width 13.9 % 11.5-14.5 Red Cell Distribution Width [facility] ([facility]) mono % 12.9 % 0.0-5.0 Above high normal Freeborn % [facility] ([facility]) lymph % 10.7 % 24.0-44.0 Below low normal Lymph % [facility] ( [facility]) eos % 1.8 % 0.0-3.0 Eos % [facility] ([facility]) baso % 0.2 % 0.0-1.0 Baso % [facility] ([facility]) immature granulocyte % 0.8 % 0-3.0 Immature Gran ulocyte % [facility] ([facility]) nucleated red blood cell % 0.0 % 0-0 Nucleated Red Blood Cell % [facility] ([facility]) lymph # 1.4 10 1.5-5.0 Below low normal Lymph # [facility] ( [facility]) neutrophils # 9.5 10 1.5-8.5 Above high normal Neutrophils # A [facility] ([facility]) eos # 0.2 10 0.0-0.5 Eos # [facility] ([facility]) mono # 1.7 10 0.0-0.8 Above high normal Freeborn # [facility] ([facility]) baso # 0.0 10 0.0-0.2 Baso # [facility] ([facility]) ID Date Data Source [id number] 06/03/2020 03:26:00 PM EST [facility]) Name Value Range Interpretation Code Description Data Marla rce(s) Supporting Document(s) ID Date Data Source [id number] 06/03/2020 03:26:00 PM EST [facility] ([facility]) Name Value Range Interpretation Code Description Data Marla rce(s) Supporting Document(s) sars covid-19 amplification positive negative Abno rmal (applies to non-numeric results) Sars Covid-19 Amplification ROSE BUD ([facility]) ID Date Data Source [id number] 06/03/2020 03:26:00 PM EST [facility] ([facility]) Name Value Range Interpretation Code Description Data Marla rce(s) Supporting Document(s) ID Date Data Source [id number] 06/03/2020 03:26:00 PM EST [facility]) Name Value Range Interpretation Code Description Data Marla rce(s) Supporting Document(s) sars covid-19 amplification positive negative Abno rmal (applies to non-numeric results) Sars Covid-19 Amplification GAR[facility] ([facility]) ID Date Data Source [id number] 06/03/2020 03:26:00 PM EST G[facility] ([facility]) Name Value Range Interpretation Code Description Data Marla rce(s) Supporting Document(s) ID Date Data Source [id number] 06/03/2020 03:26:00 PM EST GARRET ([facility]) Name Value Range Interpretation Code Description Data Marla rce(s) Supporting Document(s) sars covid-19 amplification positive negative Abno rmal (applies to non-numeric results) Sars Covid-19 Amplification GAR[facility] ([facility]) ID Date Data Source [id number] 06/03/2020 03[facility] Name Value Range Interpretation Code Description Data Marla rce(s) Supporting Document(s) ID Date Data Source [id number] 06/03/2020 03:[facility] Name Value Range Interpretation Code Description Data Marla rce(s) Supporting Document(s) sars covid-19 amplification positive negative Abno rmal (applies to non-numeric results) Sars Covid-19 Amplification G[facility] ([facility]) ID Date Data Source [id number] 06/03/2020 03:26:00 [facility] Name Value Range Interpretation Code Description Data Marla rce(s) Supporting Document(s) ID Date Data Source [id number] 06/03/2020 03:26:00 [facility] Name Value Range Interpretation Code Description Data Marla rce(s) Supporting Document(s) sars covid-19 amplification positive negative Abno rmal (applies to non-numeric results) Sars Covid-19 Amplification G[facility] ([facility]) ID Date Data Source [id number] 06/03/2020 03:26:00 PM EST GARRET ([facility]) Name Value Range Interpretation Code Description Data Marla rce(s) Supporting Document(s) ID Date Data Source [id number] 06/03/2020 03:26:00 PM EST GARRET ([facility]) Name Value Range Interpretation Code Description Data Marla rce(s) Supporting Document(s) sars covid-19 amplification positive negative Abno rmal (applies to non-numeric results) Sars Covid-19 Amplification ROSE [facility] ([facility]) ID Date Data Source [id number] 06/03/2020 03:26:00 PM EST [facility] Name Value Range Interpretation Code Description Data Marla rce(s) Supporting Document(s) SARS coronavirus 2 RNA [Presence] in Res piratory specimen by ANJU with probe detection POSITIVE [facility] This lab was ordered by [facility] a nd reported by [facility]. ID Date Data Source [id number] 06/03/2020 11:59:00 AM EST [facility]) Name Value Range Interpretation Code Description Data Marla rce(s) Supporting Document(s) ID Date Data Source [id number] 06/03/2020 11:59:00 AM EST [facility]) Name Value Range Interpretation Code Description Data Marla rce(s) Supporting Document(s) lactic acid sepsis protocol 0.9 mmol/L 0.4-2.0 Lactic A karma Sepsis Protocol [facility]) ID Date Data Source [id number] 06/03/2020 11:59:00 AM EST [facility]) Name Value Range Interpretation Code Description Data Marla rce(s) Supporting Document(s) ID Date Data Source [id number] 06/03/2020 11:59:00 AM EST GARRET ([facility]) Name Value Range Interpretation Code Description Data Marla rce(s) Supporting Document(s) lactic acid sepsis protocol 0.9 mmol/L 0.4-2.0 Lactic [facility]epsis [facility] ID Date Data Source [id number] 06/03/2020 11:59:00 AM [facility] Name Value Range Interpretation Code Description Data Marla rce(s) Supporting Document(s) ID Date Data Source [id number] 06/03/2020 11:59:00 AM EST GARRET [facility]) Name Value Range Interpretation Code Description Data Marla rce(s) Supporting Document(s) lactic acid sepsis protocol 0.9 mmol/L 0.4-2.0 Lactic A [facility]epsis [facility] ID Date Data Source [id number] 06/03/2020 11:59:00 AM EST [facility]) Name Value Range Interpretation Code Description Data Marla rce(s) Supporting Document(s) ID Date Data Source [id number] 06/03/2020 11:59:00 AM EST G[facility]) Name Value Range Interpretation Code Description Data Marla rce(s) Supporting Document(s) lactic acid sepsis protocol 0.9 mmol/L 0.4-2.0 Lactic A [facility]epsis [facility] ID Date Data Source [id number] 06/03/2020 11:59:00 AM [facility] Name Value Range Interpretation Code Description Data Marla rce(s) Supporting Document(s) ID Date Data Source [id number] 06/03/2020 11:59:00 AM EST GARRET ([facility]) Name Value Range Interpretation Code Description Data Marla rce(s) Supporting Document(s) lactic acid sepsis protocol 0.9 mmol/L 0.4-2.0 Lactic A karma Sepsis Protocol [facility] ([facility]) ID Date Data Source [id number] 06/03/2020 11:59:00 AM [facility] Name Value Range Interpretation Code Description Data Marla rce(s) Supporting Document(s) ID Date Data Source [id number] 06/03/2020 11:59:00 AM [facility] Name Value Range Interpretation Code Description Data Marla rce(s) Supporting Document(s) lactic acid sepsis protocol 0.9 mmol/L 0.4-2.0 Lactic A karma Sepsis Protocol [facility] ([facility]) ID Date Data Source [id number] 06/03/2020 11:25:00 AM EST GARRET ([facility]) Name Value Range Interpretation Code Description Data Marla rce(s) Supporting Document(s) lipase 341 U/L 73-393 Lipase [facility] ([facility]) ID Date Data Source [id number] 06/03/2020 11:25:00 AM EST [facility] ([facility]) Name Value Range Interpretation Code Description Data Marla rce(s) Supporting Document(s) glucose, fasting 96 mg/dL 70-100 Glucose, Fasting AT [facility] ([facility]) blood urea nitrogen 13 mg/dL 7-18 Blood Urea Nitro gen GARRET ([facility]) glomerular filtration rate > 60.0 >60 Glomerula r Filtration Rate ROSE [facility] ([facility]) creatinine for GFR 0.83 mg/dL 0.70-1.30 Creatinine for GF R GARRET ([facility]) potassium serum 3.9 mEq/L 3.5-5.1 Potassium Serum ATHE NA ([facility]) sodium level 135 mEq/L 136-145 Below low normal Sodium Level ATHE NA ([facility]) chloride level 101 mEq/L 98-107 Chloride Level G[facility] ([facility]) anion gap 8 mEq/L 8-16 Anion Gap G[facility] ([facility]) calcium level 8.5 mg/dL 8.5-10.1 Calcium Level G[facility]RET ( [facility]) carbon dioxide level 26 mEq/L 21-32 Carbon Dioxide Level [facility] ([facility]) ID Date Data Source [id number] 06/03/2020 11:25:00 AM EST G[facility]RET ([facility]) Name Value Range Interpretation Code Description Data Marla rce(s) Supporting Document(s) AST/SGOT 56 U/L 7-37 Above high normal AST/SGOT G[facility] ([facility]) bilirubin,total 4.7 mg/dL 0.2-1.0 Bilirubin,total ATHE ([facility]) alkaline phosphatase 160 U/L 45-117 Above high normal Alkaline Phosphatase G[facility] ([facility]) ALT/SGPT 113 U/L 12-78 Above high normal ALT/SGPT G[facility] ([facility]) bilirubin,direct 3.0 mg/dL 0.0-0.2 Above high normal Bilirubin,di rect GARRET ([facility]) albumin 3.2 gm/dL 3.2-5.2 Albumin G[facility] ([facility]) total protein 6.9 gm/dL 6.4-8.2 Total Protein GARRET ( [facility]) albumin/globulin ratio Albumin/globu mar Ratio G[facility] ([facility]) ID Date Data Source [id number] 06/03/2020 11:25:00 AM EST G[facility] ([facility]) Name Value Range Interpretation Code Description Data Marla rce(s) Supporting Document(s) white blood count 15.9 10 4.0-10.0 Above high normal White Blood Count GARRET ([facility]) hemoglobin 14.2 g/dL 13.5-17.5 Hemoglobin G[facility] ([facility]) red blood count 4.85 10 4.30-6.10 Red Blood Count ATHE NA ([facility]) hematocrit 41.4 % 42.0-52.0 Below low normal Hematocrit GARRET ( [facility]) mean corpuscular volume 85.4 fL 80.0-96.0 Mean Corpusc ular Volume GARRET ([facility]) mean corpuscular hemoglobin 29.3 pg 27.0-33.0 Mean Cor puscular Hemoglobin GARRET ([facility]) mean corpuscular HGB conc 34.3 g/dL 32.0-36.5 Mean Corpu scular HGB Conc G[facility] ([facility]) neutrophils % 76.9 % 36.0-66.0 Above high normal Neutrophils % A [facility] ([facility]) platelet count, automated 285 10 150-450 Platelet C ount, Automated GARRET ([facility]) red cell distribution width 13.5 % 11.5-14.5 Red Cell Distribution Width G[facility] ([facility]) mono % 13.0 % 0.0-5.0 Above high normal Freeborn % GARRET ([facility]) lymph % 8.0 % 24.0-44.0 Below low normal Lymph % GARRET ( [facility]) eos % 0.8 % 0.0-3.0 Eos % G[facility]RET ([facility]) baso % 0.2 % 0.0-1.0 Baso % G[facility]RET ([facility]) immature granulocyte % 1.1 % 0-3.0 Immature Gran ulocyte % G[facility]RET ([facility]) nucleated red blood cell % 0.0 % 0-0 Nucleated Red Blood Cell % G[facility] ([facility]) mono # 2.1 10 0.0-0.8 Above high normal Freeborn # GARRET ([facility]) neutrophils # 12.2 10 1.5-8.5 Above high normal Neutrophils # A THENA ([facility]) lymph # 1.3 10 1.5-5.0 Below low normal Lymph # GARRET ( [facility]) baso # 0.0 10 0.0-0.2 Baso # G[facility]RET ([facility]) eos # 0.1 10 0.0-0.5 Eos # [facility] ([facility]) ID Date Data Source [id number] 06/03/2020 11:25:00 AM EST GARRET ([facility]) Name Value Range Interpretation Code Description Data Marla rce(s) Supporting Document(s) lipase 341 U/L 73-393 Lipase ROSE BUD ([facility]) ID Date Data Source [id number] 06/03/2020 11:25:00 AM EST G[facility] ([facility]) Name Value Range Interpretation Code Description Data Marla rce(s) Supporting Document(s) blood urea nitrogen 13 mg/dL 7-18 Blood Urea Nitro gen G[facility] ([facility]) glucose, fasting 96 mg/dL 70-100 Glucose, Fasting AT [facility] ([facility]) sodium level 135 mEq/L 136-145 Below low normal Sodium Level ATHE NA ([facility]) glomerular filtration rate > 60.0 >60 Glomerula r Filtration Rate GARRET ([facility]) creatinine for GFR 0.83 mg/dL 0.70-1.30 Creatinine for GF R GARRET ([facility]) carbon dioxide level 26 mEq/L 21-32 Carbon Dioxide Level G[facility] ([facility]) potassium serum 3.9 mEq/L 3.5-5.1 Potassium Serum ATHE NA ([facility]) chloride level 101 mEq/L 98-107 Chloride Level G[facility]RET ([facility]) calcium level 8.5 mg/dL 8.5-10.1 Calcium Level RO[facility] ( [facility]) anion gap 8 mEq/L 8-16 Anion Gap ROSE BUD ([facility]) ID Date Data Source [id number] 06/03/2020 11:25:00 AM EST GARRET ([facility]) Name Value Range Interpretation Code Description Data Marla rce(s) Supporting Document(s) ALT/SGPT 113 U/L 12-78 Above high normal ALT/SGPT G[facility] ([facility]) AST/SGOT 56 U/L 7-37 Above high normal AST/SGOT [facility] ([facility]) bilirubin,total 4.7 mg/dL 0.2-1.0 Bilirubin,total ATHE NA ([facility]) alkaline phosphatase 160 U/L 45-117 Above high normal Alkaline Phosphatase GARRET ([facility]) bilirubin,direct 3.0 mg/dL 0.0-0.2 Above high normal Bilirubin,di rect G[facility] ([facility]) total protein 6.9 gm/dL 6.4-8.2 Total Protein G[facility] ( [facility]) albumin 3.2 gm/dL 3.2-5.2 Albumin G[facility] ([facility]) albumin/globulin ratio Albumin/globu mar Ratio G[facility] ([facility]) ID Date Data Source [id number] 06/03/2020 11:25:00 AM EST GARRET ([facility]) Name Value Range Interpretation Code Description Data Marla rce(s) Supporting Document(s) white blood count 15.9 10 4.0-10.0 Above high normal White Blood Count G[facility] ([facility]) red blood count 4.85 10 4.30-6.10 Red Blood Count ATHE NA ([facility]) hemoglobin 14.2 g/dL 13.5-17.5 Hemoglobin G[facility] ([facility]) mean corpuscular hemoglobin 29.3 pg 27.0-33.0 Mean Cor puscular Hemoglobin G[facility] ([facility]) mean corpuscular volume 85.4 fL 80.0-96.0 Mean Corpusc ular Volume G[facility] ([facility]) hematocrit 41.4 % 42.0-52.0 Below low normal Hematocrit G[facility] ( [facility]) red cell distribution width 13.5 % 11.5-14.5 Red Cell Distribution Width [facility] ([facility]) mean corpuscular HGB conc 34.3 g/dL 32.0-36.5 Mean Corpu scular HGB Conc [facility] ([facility]) neutrophils % 76.9 % 36.0-66.0 Above high normal Neutrophils % A [facility] ([facility]) platelet count, automated 285 10 150-450 Platelet C ount, Automated G[facility] ([facility]) lymph % 8.0 % 24.0-44.0 Below low normal Lymph % G[facility] ( [facility]) mono % 13.0 % 0.0-5.0 Above high normal Freeborn % [facility] ([facility]) baso % 0.2 % 0.0-1.0 Baso % [facility] ([facility]) eos % 0.8 % 0.0-3.0 Eos % [facility] ([facility]) nucleated red blood cell % 0.0 % 0-0 Nucleated Red Blood Cell % G[facility] ([facility]) immature granulocyte % 1.1 % 0-3.0 Immature Gran ulocyte % [facility] ([facility]) neutrophils # 12.2 10 1.5-8.5 Above high normal Neutrophils # A [facility] ([facility]) mono # 2.1 10 0.0-0.8 Above high normal Freeborn # [facility] ([facility]) lymph # 1.3 10 1.5-5.0 Below low normal Lymph # [facility]RET ( [facility]) eos # 0.1 10 0.0-0.5 Eos # [facility] ([facility]) baso # 0.0 10 0.0-0.2 Baso # [facility] ([facility]) ID Date Data Source [id number] 06/03/2020 11:25:00 AM EST G[facility] ([facility]) Name Value Range Interpretation Code Description Data Marla rce(s) Supporting Document(s) lipase 341 U/L 73-393 Lipase [facility] ([facility]) ID Date Data Source [id number] 06/03/2020 11:25:00 AM EST G[facility] ([facility]) Name Value Range Interpretation Code Description Data Marla rce(s) Supporting Document(s) glucose, fasting 96 mg/dL 70-100 Glucose, Fasting AT [facility] ([facility]) blood urea nitrogen 13 mg/dL 7-18 Blood Urea Nitro gen G[facility] ([facility]) glomerular filtration rate > 60.0 >60 Glomerula r Filtration Rate G[facility] ([facility]) creatinine for GFR 0.83 mg/dL 0.70-1.30 Creatinine for GF R G[facility]RET ([facility]) potassium serum 3.9 mEq/L 3.5-5.1 Potassium Serum ATH NA ([facility]) sodium level 135 mEq/L 136-145 Below low normal Sodium Level [facility] ([facility]) chloride level 101 mEq/L 98-107 Chloride Level [facility] ([facility]) carbon dioxide level 26 mEq/L 21-32 Carbon Dioxide Level [facility] ([facility]) anion gap 8 mEq/L 8-16 Anion Gap [facility] ([facility]) calcium level 8.5 mg/dL 8.5-10.1 Calcium Level [facility] ( [facility]) ID Date Data Source [id number] 06/03/2020 11:25:00 AM EST [facility] ([facility]) Name Value Range Interpretation Code Description Data Marla rce(s) Supporting Document(s) ALT/SGPT 113 U/L 12-78 Above high normal ALT/SGPT [facility] ([facility]) AST/SGOT 56 U/L 7-37 Above high normal AST/SGOT [facility] ([facility]) bilirubin,total 4.7 mg/dL 0.2-1.0 Bilirubin,total ATHE [facility]) alkaline phosphatase 160 U/L 45-117 Above high normal Alkaline Phosphatase [facility] ([facility]) bilirubin,direct 3.0 mg/dL 0.0-0.2 Above high normal Bilirubin,di rect [facility] ([facility]) albumin 3.2 gm/dL 3.2-5.2 Albumin RO[facility] B[facility] ([facility]) total protein 6.9 gm/dL 6.4-8.2 Total Protein GARRET ( [facility]) albumin/globulin ratio Albumin/globu mar Ratio [facility] ([facility]) ID Date Data Source [id number] 06/03/2020 11:25:00 AM EST G[facility] ([facility]) Name Value Range Interpretation Code Description Data Marla rce(s) Supporting Document(s) white blood count 15.9 10 4.0-10.0 Above high normal White Blood Count [facility] ([facility]) red blood count 4.85 10 4.30-6.10 Red Blood Count ATHE ([facility]) hemoglobin 14.2 g/dL 13.5-17.5 Hemoglobin [facility] ([facility]) mean corpuscular volume 85.4 fL 80.0-96.0 Mean Corpusc ular Volume [facility] ([facility]) hematocrit 41.4 % 42.0-52.0 Below low normal Hematocrit [facility] ( [facility]) mean corpuscular HGB conc 34.3 g/dL 32.0-36.5 Mean Corpu scular HGB Conc [facility] ([facility]) mean corpuscular hemoglobin 29.3 pg 27.0-33.0 Mean Cor puscular Hemoglobin [facility] ([facility]) red cell distribution width 13.5 % 11.5-14.5 Red Cell Distribution Width [facility] ([facility]) platelet count, automated 285 10 150-450 Platelet C ount, Automated [facility] ([facility]) lymph % 8.0 % 24.0-44.0 Below low normal Lymph % [facility] ( [facility]) neutrophils % 76.9 % 36.0-66.0 Above high normal Neutrophils % A [facility] ([facility]) mono % 13.0 % 0.0-5.0 Above high normal Freeborn % [facility] ([facility]) baso % 0.2 % 0.0-1.0 Baso % [facility] ([facility]) eos % 0.8 % 0.0-3.0 Eos % [facility] ([facility]) immature granulocyte % 1.1 % 0-3.0 Immature Gran ulocyte % [facility] ([facility]) nucleated red blood cell % 0.0 % 0-0 Nucleated Red Blood Cell % [facility] ([facility]) neutrophils # 12.2 10 1.5-8.5 Above high normal Neutrophils # A [facility] ([facility]) mono # 2.1 10 0.0-0.8 Above high normal Freeborn # [facility] ([facility]) lymph # 1.3 10 1.5-5.0 Below low normal Lymph # [facility] ( [facility]) eos # 0.1 10 0.0-0.5 Eos # [facility] ([facility]) baso # 0.0 10 0.0-0.2 Baso # [facility] ([facility]) ID Date Data Source [id number] 06/03/2020 11:25:00 AM EST [facility] ([facility]) Name Value Range Interpretation Code Description Data Marla rce(s) Supporting Document(s) lipase 341 U/L 73-393 Lipase RO[facility] ([facility]) ID Date Data Source [id number] 06/03/2020 11:25:00 AM EST [facility] ([facility]) Name Value Range Interpretation Code Description Data Marla rce(s) Supporting Document(s) glucose, fasting 96 mg/dL 70-100 Glucose, Fasting AT [facility] ([facility]) blood urea nitrogen 13 mg/dL 7-18 Blood Urea Nitro gen [facility] ([facility]) creatinine for GFR 0.83 mg/dL 0.70-1.30 Creatinine for GF R [facility] ([facility]) sodium level 135 mEq/L 136-145 Below low normal Sodium Level ATHE NA ([facility]) glomerular filtration rate > 60.0 >60 Glomerula r Filtration Rate [facility] ([facility]) potassium serum 3.9 mEq/L 3.5-5.1 Potassium Serum ATHE ([facility]) chloride level 101 mEq/L 98-107 Chloride Level [facility] ([facility]) carbon dioxide level 26 mEq/L 21-32 Carbon Dioxide Level [facility] ([facility]) calcium level 8.5 mg/dL 8.5-10.1 Calcium Level [facility] ( [facility]) anion gap 8 mEq/L 8-16 Anion Gap [facility] ([facility]) ID Date Data Source [id number] 06/03/2020 11:25:00 AM EST [facility] ([facility]) Name Value Range Interpretation Code Description Data Marla rce(s) Supporting Document(s) AST/SGOT 56 U/L 7-37 Above high normal AST/SGOT [facility] ([facility]) alkaline phosphatase 160 U/L 45-117 Above high normal Alkaline Phosphatase [facility] ([facility]) ALT/SGPT 113 U/L 12-78 Above high normal ALT/SGPT [facility] ([facility]) bilirubin,total 4.7 mg/dL 0.2-1.0 Bilirubin,total ATHE NA ([facility]) bilirubin,direct 3.0 mg/dL 0.0-0.2 Above high normal Bilirubin,di rect [facility] ([facility]) total protein 6.9 gm/dL 6.4-8.2 Total Protein [facility] ( [facility]) albumin/globulin ratio Albumin/globu mar Ratio GARRET ([facility]) albumin 3.2 gm/dL 3.2-5.2 Albumin GARRET ([facility]) ID Date Data Source [id number] 06/03/2020 11:25:00 AM EST GARRET ([facility]) Name Value Range Interpretation Code Description Data Marla rce(s) Supporting Document(s) white blood count 15.9 10 4.0-10.0 Above high normal White Blood Count GARRET ([facility]) red blood count 4.85 10 4.30-6.10 Red Blood Count ATHE NA ([facility]) hemoglobin 14.2 g/dL 13.5-17.5 Hemoglobin GARRET ([facility]) hematocrit 41.4 % 42.0-52.0 Below low normal Hematocrit GARRET ( [facility]) mean corpuscular volume 85.4 fL 80.0-96.0 Mean Corpusc ular Volume GARRET ([facility]) mean corpuscular HGB conc 34.3 g/dL 32.0-36.5 Mean Corpu scular HGB Conc GARRET ([facility]) mean corpuscular hemoglobin 29.3 pg 27.0-33.0 Mean Cor puscular Hemoglobin GARRET ([facility]) platelet count, automated 285 10 150-450 Platelet C ount, Automated GARRET ([facility]) neutrophils % 76.9 % 36.0-66.0 Above high normal Neutrophils % A [facility] ([facility]) red cell distribution width 13.5 % 11.5-14.5 Red Cell Distribution Width GARRET ([facility]) eos % 0.8 % 0.0-3.0 Eos % GARRET ([facility]) lymph % 8.0 % 24.0-44.0 Below low normal Lymph % GARRET ( [facility]) mono % 13.0 % 0.0-5.0 Above high normal Freeborn % GARRET ([facility]) immature granulocyte % 1.1 % 0-3.0 Immature Gran ulocyte % GARRET ([facility]) nucleated red blood cell % 0.0 % 0-0 Nucleated Red Blood Cell % GARRET ([facility]) baso % 0.2 % 0.0-1.0 Baso % GARRET ([facility]) mono # 2.1 10 0.0-0.8 Above high normal Freeborn # GARRET ([facility]) lymph # 1.3 10 1.5-5.0 Below low normal Lymph # GARRET ( [facility]) neutrophils # 12.2 10 1.5-8.5 Above high normal Neutrophils # A [facility] ([facility]) eos # 0.1 10 0.0-0.5 Eos # GARRET ([facility]) baso # 0.0 10 0.0-0.2 Baso # GARRET ([facility]) ID Date Data Source [id number] 06/03/2020 11:25:00 AM EST GARRET ([facility]) Name Value Range Interpretation Code Description Data Marla rce(s) Supporting Document(s) lipase 341 U/L 73-393 Lipase GARRET ([facility]) ID Date Data Source [id number] 06/03/2020 11:25:00 AM EST GARRET ([facility]) Name Value Range Interpretation Code Description Data Marla rce(s) Supporting Document(s) glucose, fasting 96 mg/dL 70-100 Glucose, Fasting AT [facility] ([facility]) blood urea nitrogen 13 mg/dL 7-18 Blood Urea Nitro gen [facility]SE [facility] ([facility]) creatinine for GFR 0.83 mg/dL 0.70-1.30 Creatinine for GF R ROSE B[facility] ([facility]) sodium level 135 mEq/L 136-145 Below low normal Sodium Level ATHE NA ([facility]) glomerular filtration rate > 60.0 >60 Glomerula r Filtration Rate GARRET ([facility]) potassium serum 3.9 mEq/L 3.5-5.1 Potassium Serum ATHE NA ([facility]) chloride level 101 mEq/L 98-107 Chloride Level GARRET ([facility]) carbon dioxide level 26 mEq/L 21-32 Carbon Dioxide Level GARRET ([facility]) anion gap 8 mEq/L 8-16 Anion Gap GARRET ([facility]) calcium level 8.5 mg/dL 8.5-10.1 Calcium Level GARRET ( [facility]) ID Date Data Source [id number] 06/03/2020 11:25:00 AM EST GARRET ([facility]) Name Value Range Interpretation Code Description Data Marla rce(s) Supporting Document(s) alkaline phosphatase 160 U/L 45-117 Above high normal Alkaline Phosphatase GARRET ([facility]) ALT/SGPT 113 U/L 12-78 Above high normal ALT/SGPT GARRET ([facility]) AST/SGOT 56 U/L 7-37 Above high normal AST/SGOT GARRET ([facility]) total protein 6.9 gm/dL 6.4-8.2 Total Protein GARRET ( [facility]) bilirubin,direct 3.0 mg/dL 0.0-0.2 Above high normal Bilirubin,di rect GARRET ([facility]) bilirubin,total 4.7 mg/dL 0.2-1.0 Bilirubin,total ATHE NA ([facility]) albumin 3.2 gm/dL 3.2-5.2 Albumin GAR[facility] ([facility]) albumin/globulin ratio Albumin/globu mar Ratio GARRET ([facility]) ID Date Data Source [id number] 06/03/2020 11:25:00 AM EST GARRET ([facility]) Name Value Range Interpretation Code Description Data Marla rce(s) Supporting Document(s) white blood count 15.9 10 4.0-10.0 Above high normal White Blood Count GARRET ([facility]) red blood count 4.85 10 4.30-6.10 Red Blood Count ATHE NA ([facility]) hemoglobin 14.2 g/dL 13.5-17.5 Hemoglobin GARRET ([facility]) mean corpuscular hemoglobin 29.3 pg 27.0-33.0 Mean Cor puscular Hemoglobin GARRET ([facility]) mean corpuscular volume 85.4 fL 80.0-96.0 Mean Corpusc ular Volume GARRET ([facility]) hematocrit 41.4 % 42.0-52.0 Below low normal Hematocrit GARRET ( [facility]) mean corpuscular HGB conc 34.3 g/dL 32.0-36.5 Mean Corpu scular HGB Conc GARRET ([facility]) platelet count, automated 285 10 150-450 Platelet C ount, Automated GARRET ([facility]) red cell distribution width 13.5 % 11.5-14.5 Red Cell Distribution Width GARRET ([facility]) neutrophils % 76.9 % 36.0-66.0 Above high normal Neutrophils % A [facility] ([facility]) lymph % 8.0 % 24.0-44.0 Below low normal Lymph % GARRET ( [facility]) mono % 13.0 % 0.0-5.0 Above high normal Freeborn % GARRET ([facility]) immature granulocyte % 1.1 % 0-3.0 Immature Gran ulocyte % GARRET ([facility]) eos % 0.8 % 0.0-3.0 Eos % G[facility] ([facility]) baso % 0.2 % 0.0-1.0 Baso % GARRET ([facility]) nucleated red blood cell % 0.0 % 0-0 Nucleated Red Blood Cell % GARRET ([facility]) lymph # 1.3 10 1.5-5.0 Below low normal Lymph # GARRET ( [facility]) neutrophils # 12.2 10 1.5-8.5 Above high normal Neutrophils # A [facility] ([facility]) mono # 2.1 10 0.0-0.8 Above high normal Freeborn # GARRET ([facility]) eos # 0.1 10 0.0-0.5 Eos # GARRET ([facility]) baso # 0.0 10 0.0-0.2 Baso # AGRRET ([facility]) ID Date Data Source [id number] 06/03/2020 11:25:00 AM EST GARRET ([facility]) Name Value Range Interpretation Code Description Data Marla rce(s) Supporting Document(s) lipase 341 U/L 73-393 Lipase GAR[facility] ([facility]) ID Date Data Source [id number] 06/03/2020 11:25:00 AM EST GARRET ([facility]) Name Value Range Interpretation Code Description Data Marla rce(s) Supporting Document(s) glucose, fasting 96 mg/dL 70-100 Glucose, Fasting AT [facility] ([facility]) blood urea nitrogen 13 mg/dL 7-18 Blood Urea Nitro gen GARRET ([facility]) creatinine for GFR 0.83 mg/dL 0.70-1.30 Creatinine for GF R GARRET ([facility]) sodium level 135 mEq/L 136-145 Below low normal Sodium Level ATHE NA ([facility]) potassium serum 3.9 mEq/L 3.5-5.1 Potassium Serum ATHE ([facility]) glomerular filtration rate > 60.0 >60 Glomerula r Filtration Rate GARRET ([facility]) anion gap 8 mEq/L 8-16 Anion Gap GARRET ([facility]) chloride level 101 mEq/L 98-107 Chloride Level GARRET ([facility]) carbon dioxide level 26 mEq/L 21-32 Carbon Dioxide Level GARRET ([facility]) calcium level 8.5 mg/dL 8.5-10.1 Calcium Level GARRET ( [facility]) ID Date Data Source [id number] 06/03/2020 11:25:00 AM EST GARRET ([facility]) Name Value Range Interpretation Code Description Data Marla rce(s) Supporting Document(s) AST/SGOT 56 U/L 7-37 Above high normal AST/SGOT GARRET ([facility]) alkaline phosphatase 160 U/L 45-117 Above high normal Alkaline Phosphatase GARRET ([facility]) ALT/SGPT 113 U/L 12-78 Above high normal ALT/SGPT GARRET ([facility]) bilirubin,total 4.7 mg/dL 0.2-1.0 Bilirubin,total ATHE ([facility]) bilirubin,direct 3.0 mg/dL 0.0-0.2 Above high normal Bilirubin,di rect GARRET ([facility]) total protein 6.9 gm/dL 6.4-8.2 Total Protein GARRET ( [facility]) albumin 3.2 gm/dL 3.2-5.2 Albumin GARRET ([facility]) albumin/globulin ratio Albumin/globu mar Ratio GARRET ([facility]) ID Date Data Source [id number] 06/03/2020 11:25:00 AM EST GARRET ([facility]) Name Value Range Interpretation Code Description Data Marla rce(s) Supporting Document(s) white blood count 15.9 10 4.0-10.0 Above high normal White Blood Count GARRET ([facility]) red blood count 4.85 10 4.30-6.10 Red Blood Count ATHE ([facility]) hematocrit 41.4 % 42.0-52.0 Below low normal Hematocrit GARRET ( [facility]) hemoglobin 14.2 g/dL 13.5-17.5 Hemoglobin GARRET ([facility]) mean corpuscular HGB conc 34.3 g/dL 32.0-36.5 Mean Corpu scular HGB Conc GARRET ([facility]) mean corpuscular hemoglobin 29.3 pg 27.0-33.0 Mean Cor puscular Hemoglobin GARRET ([facility]) mean corpuscular volume 85.4 fL 80.0-96.0 Mean Corpusc ular Volume GARRET ([facility]) red cell distribution width 13.5 % 11.5-14.5 Red Cell Distribution Width GARRET ([facility]) platelet count, automated 285 10 150-450 Platelet C ount, Automated GARRET ([facility]) neutrophils % 76.9 % 36.0-66.0 Above high normal Neutrophils % A [facility] ([facility]) mono % 13.0 % 0.0-5.0 Above high normal Freeborn % GARRET ([facility]) lymph % 8.0 % 24.0-44.0 Below low normal Lymph % GARRET ( [facility]) baso % 0.2 % 0.0-1.0 Baso % GARRET ([facility]) eos % 0.8 % 0.0-3.0 Eos % GARRET ([facility]) immature granulocyte % 1.1 % 0-3.0 Immature Gran ulocyte % GARRET ([facility]) neutrophils # 12.2 10 1.5-8.5 Above high normal [facility]rophils # [facility] nucleated red blood cell % 0.0 % 0-0 Nucleated Red Blood Cell % GARRET ([facility]) mono # 2.1 10 0.0-0.8 Above high normal Freeborn # GARRET ([facility]) lymph # 1.3 10 1.5-5.0 Below low normal Lymph # GARRET ( [facility]) eos # 0.1 10 0.0-0.5 Eos # G[facility]RET ([facility]) baso # 0.0 10 0.0-0.2 Baso # G[facility]RET ([facility]) ID Date Data Source [id number] 06/02/2020 11:40:00 AM EST GARRET ([facility]) Name Value Range Interpretation Code Description Data Marla rce(s) Supporting Document(s) blood urea nitrogen 16 mg/dL 7-18 Blood Urea Nitro gen GARRET ([facility]) creatinine for GFR 1.05 mg/dL 0.70-1.30 Creatinine for GF R GARRET ([facility]) glucose, fasting 76 mg/dL 70-100 Glucose, Fasting AT [facility]) carbon dioxide level 28 mEq/L 21-32 Carbon Dioxide Level GARRET ([facility]) chloride level 101 mEq/L 98-107 Chloride Level [facility] ([facility]) glomerular filtration rate > 60.0 >60 Glomerula r Filtration Rate GARRET ([facility]) potassium serum 4.0 mEq/L 3.5-5.1 Potassium Serum ATH NA ([facility]) sodium level 137 mEq/L 136-145 Sodium Level GARRET ([facility]) calcium level 9.0 mg/dL 8.5-10.1 Calcium Level GARRET ( [facility]) ALT/SGPT 159 U/L 12-78 Above high normal ALT/SGPT GAR[facility] ([facility]) alkaline phosphatase 178 U/L 45-117 Above high normal Alkaline Phosphatase GARRET ([facility]) anion gap 8 mEq/L 8-16 Anion Gap GAR[facility] ([facility]) AST/SGOT 67 U/L 7-37 Above high normal AST/SGOT G[facility] ([facility]) albumin 3.8 gm/dL 3.2-5.2 Albumin GARRET ([facility]) total protein 7.3 gm/dL 6.4-8.2 Total Protein GARRET ( [facility]) bilirubin,total 9.9 mg/dL 0.2-1.0 Above high normal Bilirubin,tot al GARRET ([facility]) albumin/globulin ratio Albumin/globu mar Ratio GARRET ([facility]) ID Date Data Source [id number] 06/02/2020 11:40:00 AM EST [facility] ([facility]) Name Value Range Interpretation Code Description Data Marla rce(s) Supporting Document(s) white blood count 16.7 10 4.0-10.0 Above high normal White Blood Count GARRET ([facility]) red blood count 5.52 10 4.30-6.10 Red Blood Count ATHE ([facility]) hemoglobin 15.7 g/dL 13.5-17.5 Hemoglobin G[facility]RET ([facility]) mean corpuscular volume 86.6 fL 80.0-96.0 Mean Corpusc ular Volume GARRET ([facility]) mean corpuscular HGB conc 32.8 g/dL 32.0-36.5 Mean Corpu scular HGB Conc GARRET ([facility]) mean corpuscular hemoglobin 28.4 pg 27.0-33.0 Mean Cor puscular Hemoglobin GARRET ([facility]) hematocrit 47.8 % 42.0-52.0 Hematocrit G[facility] ([facility]) platelet count, automated 286 10 150-450 Platelet C ount, Automated G[facility] ([facility]) red cell distribution width 13.5 % 11.5-14.5 Red Cell Distribution Width G[facility]RET ([facility]) lymph % 9.5 % 24.0-44.0 Below low normal Lymph % GARRET ( [facility]) neutrophils % 76.9 % 36.0-66.0 Above high normal Neutrophils % [place] [facility] ([facility]) immature granulocyte % 0.7 % 0-3.0 Immature Gran ulocyte % GARRET ([facility]) nucleated red blood cell % 0.0 % 0-0 Nucleated Red Blood Cell % [facility] ([facility]) eos % 0.5 % 0.0-3.0 Eos % [facility] ([facility]) mono % 12.3 % 0.0-5.0 Above high normal Freeborn % G[facility] ([facility]) baso % 0.1 % 0.0-1.0 Baso % [facility] ([facility]) eos # 0.1 10 0.0-0.5 Eos # [facility] ([facility]) neutrophils # 12.8 10 1.5-8.5 Above high normal Neutrophils # A THENA ([facility]) lymph # 1.6 10 1.5-5.0 Lymph # [facility] ([facility]) mono # 2.1 10 0.0-0.8 Above high normal Freeborn # GARRET ([facility]) baso # 0.0 10 0.0-0.2 Baso # [facility] ([facility]) ID Date Data Source [id number] 06/02/2020 11:40:00 AM EST GARRET ([facility]) Name Value Range Interpretation Code Description Data Marla rce(s) Supporting Document(s) glucose, fasting 76 mg/dL 70-100 Glucose, Fasting AT [facility] ([facility]) creatinine for GFR 1.05 mg/dL 0.70-1.30 Creatinine for GF R GARRET ([facility]) blood urea nitrogen 16 mg/dL 7-18 Blood Urea Nitro gen GARRET ([facility]) potassium serum 4.0 mEq/L 3.5-5.1 Potassium Serum ATHE NA ([facility]) sodium level 137 mEq/L 136-145 Sodium Level GARRET ([facility]) glomerular filtration rate > 60.0 >60 Glomerula r Filtration Rate GARRET ([facility]) anion gap 8 mEq/L 8-16 Anion Gap [facility] ([facility]) calcium level 9.0 mg/dL 8.5-10.1 Calcium Level GARRET ( [facility]) chloride level 101 mEq/L 98-107 Chloride Level G[facility]RET ([facility]) carbon dioxide level 28 mEq/L 21-32 Carbon Dioxide Level G[facility]RET ([facility]) AST/SGOT 67 U/L 7-37 Above high normal AST/SGOT [facility] ([facility]) ALT/SGPT 159 U/L 12-78 Above high normal ALT/SGPT [facility] ([facility]) alkaline phosphatase 178 U/L 45-117 Above high normal Alkaline Phosphatase G[facility] ([facility]) bilirubin,total 9.9 mg/dL 0.2-1.0 Above high normal Bilirubin,tot al GARRET ([facility]) albumin/globulin ratio Albumin/globu mar Ratio GARRET ([facility]) total protein 7.3 gm/dL 6.4-8.2 Total Protein GARRET ( [facility]) albumin 3.8 gm/dL 3.2-5.2 Albumin [facility] ([facility]) ID Date Data Source [id number] 06/02/2020 11:40:00 AM EST GARRET ([facility]) Name Value Range Interpretation Code Description Data Marla rce(s) Supporting Document(s) red blood count 5.52 10 4.30-6.10 Red Blood Count ATHE ([facility]) white blood count 16.7 10 4.0-10.0 Above high normal White Blood Count GARRET ([facility]) hematocrit 47.8 % 42.0-52.0 Hematocrit [facility] ([facility]) mean corpuscular volume 86.6 fL 80.0-96.0 Mean Corpusc ular Volume GARRET ([facility]) hemoglobin 15.7 g/dL 13.5-17.5 Hemoglobin G[facility] ([facility]) mean corpuscular hemoglobin 28.4 pg 27.0-33.0 Mean Cor puscular Hemoglobin G[facility]RET ([facility]) red cell distribution width 13.5 % 11.5-14.5 Red Cell Distribution Width G[facility]RET ([facility]) mean corpuscular HGB conc 32.8 g/dL 32.0-36.5 Mean Corpu scular HGB Conc G[facility] ([facility]) neutrophils % 76.9 % 36.0-66.0 Above high normal Neutrophils % A [facility] ([facility]) platelet count, automated 286 10 150-450 Platelet C ount, Automated GARRET ([facility]) lymph % 9.5 % 24.0-44.0 Below low normal Lymph % GARRET ( [facility]) mono % 12.3 % 0.0-5.0 Above high normal Freeborn % G[facility]RET ([facility]) baso % 0.1 % 0.0-1.0 Baso % [facility] ([facility]) eos % 0.5 % 0.0-3.0 Eos % [facility] ([facility]) immature granulocyte % 0.7 % 0-3.0 Immature Gran ulocyte % G[facility]RET ([facility]) lymph # 1.6 10 1.5-5.0 Lymph # G[facility]RET ([facility]) nucleated red blood cell % 0.0 % 0-0 Nucleated Red Blood Cell % G[facility]RET ([facility]) neutrophils # 12.8 10 1.5-8.5 Above high normal Neutrophils # A [facility] ([facility]) mono # 2.1 10 0.0-0.8 Above high normal Freeborn # G[facility]RET ([facility]) baso # 0.0 10 0.0-0.2 Baso # [facility] ([facility]) eos # 0.1 10 0.0-0.5 Eos # [facility] ([facility]) ID Date Data Source [id number] 06/02/2020 11:40:00 AM EST G[facility] ([facility]) Name Value Range Interpretation Code Description Data Marla rce(s) Supporting Document(s) glucose, fasting 76 mg/dL 70-100 Glucose, Fasting AT [facility] ([facility]) creatinine for GFR 1.05 mg/dL 0.70-1.30 Creatinine for GF R [facility] ([facility]) blood urea nitrogen 16 mg/dL 7-18 Blood Urea Nitro gen GARRET ([facility]) glomerular filtration rate > 60.0 >60 Glomerula r Filtration Rate G[facility]RET ([facility]) potassium serum 4.0 mEq/L 3.5-5.1 Potassium Serum ATHE NA ([facility]) sodium level 137 mEq/L 136-145 Sodium Level GARRET (No [facility]) carbon dioxide level 28 mEq/L 21-32 Carbon Dioxide Level G[facility]RET ([facility]) chloride level 101 mEq/L 98-107 Chloride Level G[facility]RET ([facility]) anion gap 8 mEq/L 8-16 Anion Gap G[facility] ([facility]) AST/SGOT 67 U/L 7-37 Above high normal AST/SGOT [facility] ([facility]) calcium level 9.0 mg/dL 8.5-10.1 Calcium Level GARRET ( [facility]) alkaline phosphatase 178 U/L 45-117 Above high normal Alkaline Phosphatase G[facility]RET ([facility]) ALT/SGPT 159 U/L 12-78 Above high normal ALT/SGPT [facility] ([facility]) albumin 3.8 gm/dL 3.2-5.2 Albumin G[facility] ([facility]) total protein 7.3 gm/dL 6.4-8.2 Total Protein GARRET ( [facility]) bilirubin,total 9.9 mg/dL 0.2-1.0 Above high normal Bilirubin,tot al G[facility] ([facility]) albumin/globulin ratio Albumin/globu mar Ratio [facility] ([facility]) ID Date Data Source [id number] 06/02/2020 11:40:00 AM EST GARRET ([facility]) Name Value Range Interpretation Code Description Data Marla rce(s) Supporting Document(s) white blood count 16.7 10 4.0-10.0 Above high normal White Blood Count G[facility] ([facility]) red blood count 5.52 10 4.30-6.10 Red Blood Count ATHE NA ([facility]) hematocrit 47.8 % 42.0-52.0 Hematocrit G[facility] ([facility]) hemoglobin 15.7 g/dL 13.5-17.5 Hemoglobin G[facility] ([facility]) mean corpuscular hemoglobin 28.4 pg 27.0-33.0 Mean Cor puscular Hemoglobin GARRET ([facility]) mean corpuscular volume 86.6 fL 80.0-96.0 Mean Corpusc ular Volume GARRET ([facility]) mean corpuscular HGB conc 32.8 g/dL 32.0-36.5 Mean Corpu scular HGB Conc GARRET ([facility]) red cell distribution width 13.5 % 11.5-14.5 Red Cell Distribution Width GARRET ([facility]) platelet count, automated 286 10 150-450 Platelet C ount, Automated GARRET ([facility]) neutrophils % 76.9 % 36.0-66.0 Above high normal Neutrophils % [facility] lymph % 9.5 % 24.0-44.0 Below low normal Lymph % GARRET ( [facility]) eos % 0.5 % 0.0-3.0 Eos % GARRET ([facility]) baso % 0.1 % 0.0-1.0 Baso % GARRET ([facility]) mono % 12.3 % 0.0-5.0 Above high normal Freeborn % GARRET ([facility]) nucleated red blood cell % 0.0 % 0-0 Nucleated Red Blood Cell % GARRET ([facility]) immature granulocyte % 0.7 % 0-3.0 Immature Gran ulocyte % GARRET ([facility]) lymph # 1.6 10 1.5-5.0 Lymph # GARRET ([facility]) neutrophils # 12.8 10 1.5-8.5 Above high normal Neutrophils # A THENA ([facility]) mono # 2.1 10 0.0-0.8 Above high normal Freeborn # GARRET ([facility]) eos # 0.1 10 0.0-0.5 Eos # GARRET ([facility]) baso # 0.0 10 0.0-0.2 Baso # GARRET ([facility]) ID Date Data Source [id number] 06/02/2020 11:40:00 AM EST GARRET ([facility]) Name Value Range Interpretation Code Description Data Marla rce(s) Supporting Document(s) glucose, fasting 76 mg/dL 70-100 Glucose, Fasting AT GLENYS ([facility]) blood urea nitrogen 16 mg/dL 7-18 Blood Urea Nitro gen GARRET ([facility]) glomerular filtration rate > 60.0 >60 Glomerula r Filtration Rate GARRET ([facility]) creatinine for GFR 1.05 mg/dL 0.70-1.30 Creatinine for GF R GARRET ([facility]) sodium level 137 mEq/L 136-145 Sodium Level GARRET ([facility]) potassium serum 4.0 mEq/L 3.5-5.1 Potassium Serum ATHE NA ([facility]) carbon dioxide level 28 mEq/L 21-32 Carbon Dioxide Level GARRET ([facility]) anion gap 8 mEq/L 8-16 Anion Gap GARRET ([facility]) chloride level 101 mEq/L 98-107 Chloride Level GARRET ([facility]) calcium level 9.0 mg/dL 8.5-10.1 Calcium Level GARRET ( [facility]) ALT/SGPT 159 U/L 12-78 Above high normal ALT/SGPT GARRET ([facility]) alkaline phosphatase 178 U/L 45-117 Above high normal Alkaline Phosphatase GARRET ([facility]) AST/SGOT 67 U/L 7-37 Above high normal AST/SGOT GARRET ([facility]) bilirubin,total 9.9 mg/dL 0.2-1.0 Above high normal Bilirubin,tot al GARRET ([facility]) albumin 3.8 gm/dL 3.2-5.2 Albumin GARRET ([facility]) total protein 7.3 gm/dL 6.4-8.2 Total Protein GARRET ( [facility]) albumin/globulin ratio Albumin/globu mar Ratio GARRET ([facility]) ID Date Data Source [id number] 06/02/2020 11:40:00 AM EST GARRET ([facility]) Name Value Range Interpretation Code Description Data Marla rce(s) Supporting Document(s) white blood count 16.7 10 4.0-10.0 Above high normal White Blood Count GARRET ([facility]) red blood count 5.52 10 4.30-6.10 Red Blood Count ATHE NA ([facility]) hemoglobin 15.7 g/dL 13.5-17.5 Hemoglobin GARRET ([facility]) mean corpuscular volume 86.6 fL 80.0-96.0 Mean Corpusc ular Volume GARRET ([facility]) hematocrit 47.8 % 42.0-52.0 Hematocrit GARRET ([facility]) mean corpuscular HGB conc 32.8 g/dL 32.0-36.5 Mean Corpu scular HGB Conc GARRET ([facility]) mean corpuscular hemoglobin 28.4 pg 27.0-33.0 Mean Cor puscular Hemoglobin GARRET ([facility]) platelet count, automated 286 10 150-450 Platelet C ount, Automated GARRET ([facility]) red cell distribution width 13.5 % 11.5-14.5 Red Cell Distribution Width GARRET ([facility]) neutrophils % 76.9 % 36.0-66.0 Above high normal Neutrophils % A THENA ([facility]) mono % 12.3 % 0.0-5.0 Above high normal Freeborn % GARRET ([facility]) lymph % 9.5 % 24.0-44.0 Below low normal Lymph % GARRET ( [facility]) baso % 0.1 % 0.0-1.0 Baso % GARRET ([facility]) eos % 0.5 % 0.0-3.0 Eos % GARRET ([facility]) nucleated red blood cell % 0.0 % 0-0 Nucleated Red Blood Cell % GARRET ([facility]) immature granulocyte % 0.7 % 0-3.0 Immature Gran ulocyte % GARRET ([facility]) lymph # 1.6 10 1.5-5.0 Lymph # GARRET ([facility]) neutrophils # 12.8 10 1.5-8.5 Above high normal Neutrophils # A THENA ([facility]) eos # 0.1 10 0.0-0.5 Eos # GARRET ([facility]) mono # 2.1 10 0.0-0.8 Above high normal Freeborn # GARRET ([facility]) baso # 0.0 10 0.0-0.2 Baso # GARRET ([facility]) ID Date Data Source [id number] 06/02/2020 11:40:00 AM EST GARRET ([facility]) Name Value Range Interpretation Code Description Data Marla rce(s) Supporting Document(s) glucose, fasting 76 mg/dL 70-100 Glucose, Fasting AT [facility]) sodium level 137 mEq/L 136-145 Sodium Level GARRET ([facility]) creatinine for GFR 1.05 mg/dL 0.70-1.30 Creatinine for GF R GARRET ([facility]) blood urea nitrogen 16 mg/dL 7-18 Blood Urea Nitro gen GARRET ([facility]) glomerular filtration rate > 60.0 >60 Glomerula r Filtration Rate GARRET ([facility]) potassium serum 4.0 mEq/L 3.5-5.1 Potassium Serum ATHE NA ([facility]) calcium level 9.0 mg/dL 8.5-10.1 Calcium Level GARRET ( [facility]) carbon dioxide level 28 mEq/L 21-32 Carbon Dioxide Level GARRET ([facility]) chloride level 101 mEq/L 98-107 Chloride Level GARRET ([facility]) anion gap 8 mEq/L 8-16 Anion Gap GARRET ([facility]) AST/SGOT 67 U/L 7-37 Above high normal AST/SGOT GARRET ([facility]) total protein 7.3 gm/dL 6.4-8.2 Total Protein GARRET ( [facility]) ALT/SGPT 159 U/L 12-78 Above high normal ALT/SGPT GARRET ([facility]) bilirubin,total 9.9 mg/dL 0.2-1.0 Above high normal Bilirubin,tot al GARRET ([facility]) alkaline phosphatase 178 U/L 45-117 Above high normal Alkaline Phosphatase GARRET ([facility]) albumin/globulin ratio Albumin/globu mar Ratio GARRET ([facility]) albumin 3.8 gm/dL 3.2-5.2 Albumin GARRET ([facility]) ID Date Data Source [id number] 06/02/2020 11:40:00 AM EST GARRET ([facility]) Name Value Range Interpretation Code Description Data Marla rce(s) Supporting Document(s) hemoglobin 15.7 g/dL 13.5-17.5 Hemoglobin GARRET ([facility]) white blood count 16.7 10 4.0-10.0 Above high normal White Blood Count GARRET ([facility]) red blood count 5.52 10 4.30-6.10 Red Blood Count ATHE ([facility]) mean corpuscular hemoglobin 28.4 pg 27.0-33.0 Mean Cor puscular Hemoglobin GARRET ([facility]) mean corpuscular HGB conc 32.8 g/dL 32.0-36.5 Mean Corpu scular HGB Conc GARRET ([facility]) mean corpuscular volume 86.6 fL 80.0-96.0 Mean Corpusc ular Volume GARRET ([facility]) hematocrit 47.8 % 42.0-52.0 Hematocrit GARRET ([facility]) neutrophils % 76.9 % 36.0-66.0 Above high normal Neutrophils % A THENA ([facility]) lymph % 9.5 % 24.0-44.0 Below low normal Lymph % GARRET ( [facility]) red cell distribution width 13.5 % 11.5-14.5 Red Cell Distribution Width GARRET ([facility]) platelet count, automated 286 10 150-450 Platelet C ount, Automated GARRET ([facility]) baso % 0.1 % 0.0-1.0 Baso % GARRET ([facility]) immature granulocyte % 0.7 % 0-3.0 Immature Gran ulocyte % GARRET ([facility]) eos % 0.5 % 0.0-3.0 Eos % GARRET ([facility]) mono % 12.3 % 0.0-5.0 Above high normal Freeborn % GARRET ([facility]) nucleated red blood cell % 0.0 % 0-0 Nucleated Red Blood Cell % GARRET ([facility]) neutrophils # 12.8 10 1.5-8.5 Above high normal Neutrophils # A THENA ([facility]) mono # 2.1 10 0.0-0.8 Above high normal Freeborn # ROSE BUD ([facility]) lymph # 1.6 10 1.5-5.0 Lymph # GARRET ([facility]) baso # 0.0 10 0.0-0.2 Baso # GARRET ([facility]) eos # 0.1 10 0.0-0.5 Eos # GARRTE ([facility]) ID Date Data Source [id number] 06/02/2020 11:40:00 AM EST ROSE BUD ([facility]) Name Value Range Interpretation Code Description Data Marla rce(s) Supporting Document(s) glucose, fasting 76 mg/dL 70-100 Glucose, Fasting AT [facility]) glomerular filtration rate > 60.0 >60 Glomerula r Filtration Rate GARRET ([facility]) sodium level 137 mEq/L 136-145 [facility] creatinine for GFR 1.05 mg/dL 0.70-1.30 Creatinine for GF R GARRET ([facility]) blood urea nitrogen 16 mg/dL 7-18 Blood Urea Nitro gen GARRET ([facility]) carbon dioxide level 28 mEq/L 21-32 Carbon Dioxide Level ROSE BUD ([facility]) potassium serum 4.0 mEq/L 3.5-5.1 Potassium Serum ATHE NA ([facility]) chloride level 101 mEq/L 98-107 Chloride Level ROSE BUD ([facility]) alkaline phosphatase 178 U/L 45-117 Above high normal Alkaline Phosphatase GARRET ([facility]) calcium level 9.0 mg/dL 8.5-10.1 Calcium Level GARRET ( [facility]) AST/SGOT 67 U/L 7-37 Above high normal AST/SGOT GARRET ([facility]) anion gap 8 mEq/L 8-16 Anion Gap GARRET ([facility]) ALT/SGPT 159 U/L 12-78 Above high normal ALT/SGPT GARRET ([facility]) bilirubin,total 9.9 mg/dL 0.2-1.0 Above high normal Bilirubin,tot al GARRET ([facility]) total protein 7.3 gm/dL 6.4-8.2 Total Protein GARRET ( [facility]) albumin 3.8 gm/dL 3.2-5.2 Albumin GARRET ([facility]) albumin/globulin ratio Albumin/globu mar Ratio GARRET ([facility]) ID Date Data Source [id number] 06/02/2020 11:40:00 AM EST GARRET ([facility]) Name Value Range Interpretation Code Description Data Marla rce(s) Supporting Document(s) white blood count 16.7 10 4.0-10.0 Above high normal White Blood Count GARRET ([facility]) hemoglobin 15.7 g/dL 13.5-17.5 Hemoglobin GARRET ([facility]) red blood count 5.52 10 4.30-6.10 Red Blood Count ATHE NA ([facility]) hematocrit 47.8 % 42.0-52.0 Hematocrit GARRET ([facility]) mean corpuscular hemoglobin 28.4 pg 27.0-33.0 Mean Cor puscular Hemoglobin GARRET ([facility]) mean corpuscular HGB conc 32.8 g/dL 32.0-36.5 Mean Corpu scular HGB Conc GARRET ([facility]) mean corpuscular volume 86.6 fL 80.0-96.0 Mean Corpusc ular Volume GARRET ([facility]) platelet count, automated 286 10 150-450 Platelet C ount, Automated GARRET ([facility]) red cell distribution width 13.5 % 11.5-14.5 Red Cell Distribution Width GARRET ([facility]) neutrophils % 76.9 % 36.0-66.0 Above high normal Neutrophils % A THENA ([facility]) mono % 12.3 % 0.0-5.0 Above high normal Freeborn % ROSE BUD ([facility]) lymph % 9.5 % 24.0-44.0 Below low normal Lymph % GARRET ( [facility]) eos % 0.5 % 0.0-3.0 Eos % ROSE BUD ([facility]) baso % 0.1 % 0.0-1.0 Baso % ROSE BUD ([facility]) immature granulocyte % 0.7 % 0-3.0 Immature Gran ulocyte % ROSE BUD ([facility]) nucleated red blood cell % 0.0 % 0-0 Nucleated Red Blood Cell % ROSE BUD ([facility]) lymph # 1.6 10 1.5-5.0 Lymph # GARRET ([facility]) neutrophils # 12.8 10 1.5-8.5 Above high normal Neutrophils # A THENA ([facility]) mono # 2.1 10 0.0-0.8 Above high normal Freeborn # ROSE BUD ([facility]) baso # 0.0 10 0.0-0.2 Baso # GARRET ([facility]) eos # 0.1 10 0.0-0.5 Eos # GARRET ([facility]) ID Date Data Source [id number] 03/05/2020 01:23:55 PM [facility] Current Problems: Dental caries (ICD-521 .00) (AJZ38-Y62.9)Wendel teeth impaction (ICD-520.6) (EQG91-D64.1)Chronic constipation (ICD-564.09) (ICD10- K59.09)Epilepsy, unspecified, not intractable, without status epilepticus (HCS77-N61.909)Autistic disorder (ICD-299.00) (XGA15-B61.0)Acne (ICD-706.1) (BVS69-K80.0)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) (YWH55-Z96.0)Encounter for general adult medical examination with abnormal [...] Assessment & Plan Problems:Added: Dental caries (ICD-521.00) (WEQ45-S45.9)Medications:SELSUN BLUE DRY SCALP 1 % EXTERNAL SHAMPOOZOLOFT [...] rce(s) Supporting Document(s) ID Date Data Source [id number] 01/28/2020 02:18:51 PM EDT [facility] Patient History Medical History:autismga llstonesconstipationacneseizures-last in 2011Surgical History:Family History:adopted-unknown family historySocial/Personal History: Chief Complaint: Routine CleaningVisit Type: ExamCurrent Problems: Wendel teeth impaction (ICD-520.6) (ETO25-N32.1)Chronic constipation (ICD-564.09) (WBS39-Q97.09)Epilepsy, unspecified, not intractable, without status epilepticus (PWH95-M32.909)Autistic disorder (ICD-299.00) (ICD10- F84.0)Acne (ICD-706.1) (WGL48-G64.0)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) (ICD10- L21.0)Encounter for general adult medical examination with abnormal findings (ICD-V70.0) (BAQ92-H72.01)Problem list reviewed during this update.Current Medications: SELSUN [...] - CDT Code - Description B - (D0620) Panoramic film (Performed by Gabbie ARREAGAArlen) B - (D0272) Bitewings, 2 radiographic images (Performed by Cartwright RDCollinth) B - (D0150) Comprehensive oral evaluation - new or established patient (Performed by Conrad Sánchez DDS) B - (D1110) Prophylaxis, adult (Performed by Cartwright RDArlen) Treatments:Type - CDT Code - Description T [...] 2 on Tooth Surface OL ([facility]) T - (D2392) Resin-based composite, 2 surfaces, posterior on Tooth # 19 on Tooth Surface OB ([facility]formed [facility]) T - (D2330) Resin, one surface, anterior on Tooth # 8 on Tooth Surface F (Performed by [facility]) T - (D7140) Extraction, erupted tooth or exposed root (elevation and/or forceps removal) on Tooth # 1 (Performed by [facility]) Existing:Type - CDT Code - Description[E] Missing - [place] and Root On #17 Surface O Region [...] listen very well. Pt kept asking his [facility] staff if he was making [...] about flossing. NV: Restorative. 6MArlen Cobb RDH (01/29/2020 4:28 PM): ; timmy (Jan 30 2020 8:09AM): [facility](-). Special Needs patient. CC: none. Reviewed Xrays. Exam: caries detected. OCS: WNL, IO/ EO completed, No significant hard findings upon clinical exam.Additional PPE requirements due to COVID-19 in the dental setting, N95, surgical mask, hair covering, gown and shieldPt was cooperative. OHI given Referral: N/A NV:restorationFoArlen ibrahim RDH by timmy (01/30/2020 8:09 AM): Tooth Notes and Watches:- Tooth 9 Watch: Arlen Grossman RDH (01/28/2020 2:41 PM): Assessment & Plan Problems:Added: Wendel teeth impaction (ICD-520.6) (QCH92-M30.1)Medications:SELSUN BLUE DRY SCALP 1 % EXTERNAL SHAMPOOZOLOFT 100 MG ORAL TABLETINDERAL LA 60 MG ORAL CAPSULE EXTENDED RELEASE 24 HOURBENZOYL PEROXIDE 2.5 % EXTERNAL GELLAMICTAL XR 100 MG ORAL TABLET EXTENDED RELEASE 24 HOURHYDROXYZINE HCL 50 MG ORAL TABLETMIRALAX ORAL POWDER DIFFERIN 0.1 % EXTERNAL CREAMAllergies:BIAXIN (Critical)* TOPOMAX (Critical)* RAGWEED (Critical)* SEROQUEL (Critical)* TETANUS TOXIN (Severe)* HAYFEVER (Moderate)Orders:Oral Surgery Referral [CPT-[id number]] Name Value Range Interpretation Code Description Data Marla rce(s) Supporting Document(s) Procedure Social History No Information Vital Signs ID Date Data Source UNK Name Value Range Interpretation Code Description Data Source(s) Diastolic blood [facility] 77 mm[facility]Hg] 77 [facility] Body height 76 [in_i] 76 [in_i] G[facility]RET ([facility]) Body mass index (BMI) [Ratio] 36 kg/m2 36 kg/ m2 GARRET ([facility]) Systolic blood pressure 139 mm[Hg] 139 mm[Hg] A THENA ([facility]) Body weight 4726 [oz_av] 4726 [oz_av] GARRET ([facility]) Diastolic blood pressure 65 mm[Hg] 65 mm[Hg] GARRET ([facility]) Body height 76 [in_i] 76 [in_i] G[facility]RET ([facility]) Body mass index (BMI) [Ratio] 35.8 kg/m2 35.8 k g/m2 GARRET ([facility]) Systolic blood pressure 105 mm[Hg] 105 mm[Hg] [facility] Body weight 4704 [oz_av] 4704 [oz_av] GARRET ([facility]) Body mass index (BMI) [Ratio] 35.8 kg/m2 35.8 k g/m2 GARRET ([facility]) Systolic blood pressure 105 mm[Hg] 105 mm[Hg] A THENA ([facility]) Body weight 4704 [oz_av] 4704 [oz_av] GARRET ([facility]) Diastolic blood pressure 65 mm[Hg] 65 mm[Hg] [facility]RET ([facility]) Body height 76 [in_i] 76 [in_i] G[facility] ([facility]) Diastolic blood pressure 71 mm[Hg] 71 mm[Hg] GARRET ([facility]) Body height 76 [in_i] 76 [in_i] G[facility]RET ([facility]) Body mass index (BMI) [Ratio] 35 kg/m2 35 kg/ m2 GARRET ([facility]) Systolic blood pressure 104 mm[Hg] 104 mm[Hg] [facility] Body weight 4600 [oz_av] 4600 [oz_av] GARRET ([facility]) Diastolic blood pressure 71 mm[Hg] 71 mm[Hg] GARRET ([facility]) Body height 76 [in_i] 76 [in_i] G[facility]RET ([facility]) Body mass index (BMI) [Ratio] 35 kg/m2 35 kg/ m2 GAR[facility] ([facility]) Systolic blood pressure 104 mm[Hg] 104 mm[Hg] [facility] Body weight 4600 [oz_av] 4600 [oz_av] GARRET ([facility]) Diastolic blood pressure 71 mm[Hg] 71 mm[Hg] GARRET ([facility]) Body height 76 [in_i] 76 [in_i] GARRET ([facility]) Body mass index (BMI) [Ratio] 35 kg/m2 35 kg/ m2 GARRET ([facility]) Systolic blood pressure 104 mm[Hg] 104 mm[Hg] A THENA ([facility]) Body weight 4600 [oz_av] 4600 [oz_av] GARRET ([facility]) Systolic blood pressure 107 mm[Hg] 107 mm[Hg] M EDENT ([facility], ) Diastolic blood pressure 66 mm[Hg] 66 mm[Hg] MEDENT ([facility]) Body height 74 [in_i] 74 [in_i] [facility] ([facility]) 6'2" Body weight 269.00 [lb_av] 269.00 [lb_av] MEDEN T ([facility]) Body mass index (BMI) [Ratio] 34.5 kg/m2 34.5 k g/m2 [facility] ([facility]) [place] body weight 190 [lb_av] 190 [lb_av] MEDEN T ([facility], ) Body weight 122.018 kg 122.018 kg [facility] ([facility]) Body surface area Derived from formula 2.47 m2 2.47 m2 [facility] ([facility]) Diastolic blood pressure 74 mm[Hg] 74 mm[Hg] GARRET ([facility]) Body height 76 [in_i] 76 [in_i] [facility] ([facility]) Body mass index (BMI) [Ratio] 33 kg/m2 33 kg/ m2 GARRET ([facility]) Systolic blood pressure 119 mm[Hg] 119 mm[Hg] A THENA ([facility]) Body weight 4342.4 [oz_av] 4342.4 [oz_av] ATHEN A ([facility]) Diastolic blood pressure 74 mm[Hg] 74 mm[Hg] GARRET ([facility]) Body height 76 [in_i] 76 [in_i] GARRET ([facility]) Body mass index (BMI) [Ratio] 33 kg/m2 33 kg/ m2 GARRET ([facility]) Systolic blood pressure 119 mm[Hg] 119 mm[Hg] A THENA ([facility]) Body weight 4342.4 [oz_av] 4342.4 [oz_av] ATHYUNG A ([facility]) Diastolic blood pressure 74 mm[Hg] 74 mm[Hg] GARRET ([facility]) Body height 76 [in_i] 76 [in_i] GARRET ([facility]) Body mass index (BMI) [Ratio] 33 kg/m2 33 kg/ m2 GARRET ([facility]) Systolic blood pressure 119 mm[Hg] 119 mm[Hg] A ZAIN ([facility]) Body weight 4342.4 [oz_av] 4342.4 [oz_av] ATHEN A ([facility]) Diastolic blood pressure 74 mm[Hg] 74 mm[Hg] GARRET ([facility]) Body height 76 [in_i] 76 [in_i] [facility]RET ([facility]) Body mass index (BMI) [Ratio] 33 kg/m2 33 kg/ m2 [facility] ([facility]) Systolic blood pressure 119 mm[Hg] 119 mm[Hg] A ZAIN ([facility] [facility]) Body weight 4342.4 [oz_av] 4342.4 [oz_av] ATHEN A ([facility]) Body height 74 [in_i] 74 [in_i] FRANK ([facility], ) 6'2" Body weight 266.00 [lb_av] 266.00 [lb_av] MEDEN T ([facility], ) Body mass index (BMI) [Ratio] 34.1 kg/m2 34.1 k g/m2 FRANK ([facility], ) Systolic blood pressure 110 mm[Hg] 110 mm[Hg] M EDENT ([facility], ) Diastolic blood pressure 60 mm[Hg] 60 mm[Hg] MEDGIOVANNY ([facility], ) [place] body weight 190 [lb_av] 190 [lb_av] MEDEN T ([facility], ) Body weight 120.658 kg 120.658 kg MEDGIOVANNY ([facility], ) Body surface area Derived from formula 2.45 m2 2.45 m2 FRANK ([facility], ) Diastolic blood pressure 72 mm[Hg] 72 mm[Hg] AGRRET ([facility]) Body height 76 [in_i] 76 [in_i] GARRET ([facility]) Body mass index (BMI) [Ratio] 31.2 kg/m2 31.2 k g/m2 GARRET ([facility]) Systolic blood pressure 109 mm[Hg] 109 mm[Hg] [facility] Body weight 4102.4 [oz_av] 4102.4 [oz_av] ATHEN A ([facility]) Diastolic blood pressure 72 mm[Hg] 72 mm[Hg] GARRET ([facility]) Body height 76 [in_i] 76 [in_i] GARRET ([facility]) Body mass index (BMI) [Ratio] 31.2 kg/m2 31.2 k g/m2 GARRET ([facility]) Systolic blood pressure 109 mm[Hg] 109 mm[Hg] [facility] Body weight 4102.4 [oz_av] 4102.4 [oz_av] ATHEN A ([facility]) Diastolic blood pressure 72 mm[Hg] 72 mm[Hg] GARRET ([facility]) Body height 76 [in_i] 76 [in_i] GARRET ([facility]) Body mass index (BMI) [Ratio] 31.2 kg/m2 31.2 k g/m2 GARRET ([facility]) Systolic blood pressure 109 mm[Hg] 109 mm[Hg] A THENA ([facility]) Body weight 4102.4 [oz_av] 4102.4 [oz_av] ATHEN A ([facility]) Diastolic blood pressure 72 mm[Hg] 72 mm[Hg] GARRET ([facility]) Body height 76 [in_i] 76 [in_i] GARRET ([facility]) Body mass index (BMI) [Ratio] 31.2 kg/m2 31.2 k g/m2 GARRET ([facility]) Systolic blood pressure 109 mm[Hg] 109 mm[Hg] A THENA ([facility]) Body weight 4102.4 [oz_av] 4102.4 [oz_av] ATHEN A ([facility]) Diastolic blood pressure 72 mm[Hg] 72 mm[Hg] GARRET ([facility]) Body height 76 [in_i] 76 [in_i] GARRET ([facility]) Body mass index (BMI) [Ratio] 31.2 kg/m2 31.2 k g/m2 GARRET ([facility]) Systolic blood pressure 109 mm[Hg] 109 mm[Hg] [facility] Body weight 4102.4 [oz_av] 4102.4 [oz_av] ATHEN A ([facility]) Diastolic blood pressure 72 mm[Hg] 72 mm[Hg] GARRET ([facility]) Body height 76 [in_i] 76 [in_i] GARRET ([facility]) Body mass index (BMI) [Ratio] 31.2 kg/m2 31.2 k g/m2 GARRET ([facility]) Systolic blood pressure 109 mm[Hg] 109 mm[Hg] [facility] Body weight 4102.4 [oz_av] 4102.4 [oz_av] ATHEN A ([facility]) Diastolic blood pressure 78 mm[Hg] 78 mm[Hg] GARRET ([facility]) Body height 76 [in_i] 76 [in_i] GARRET ([facility]) Body mass index (BMI) [Ratio] 28.6 kg/m2 28.6 k g/m2 GARRET ([facility]) Systolic blood pressure 123 mm[Hg] 123 mm[Hg] [facility] Body weight 3760 [oz_av] 3760 [oz_av] GARRET ([facility]) Diastolic blood pressure 78 mm[Hg] 78 mm[Hg] GARRET ([facility]) Body height 76 [in_i] 76 [in_i] GARRET ([facility]) Body mass index (BMI) [Ratio] 28.6 kg/m2 28.6 k g/m2 GARRET ([facility]) Systolic blood pressure 123 mm[Hg] 123 mm[Hg] A [facility] ([facility]) Body weight 3760 [oz_av] 3760 [oz_av] GARRET ([facility]) Diastolic blood pressure 78 mm[Hg] 78 mm[Hg] GARRET ([facility]) Body height 76 [in_i] 76 [in_i] GARRET ([facility]) Body mass index (BMI) [Ratio] 28.6 kg/m2 28.6 k g/m2 GARRET ([facility]) Systolic blood pressure 123 mm[Hg] 123 mm[Hg] A THENA ([facility]) Body weight 3760 [oz_av] 3760 [oz_av] GARRET ([facility]) Diastolic blood pressure 78 mm[Hg] 78 mm[Hg] GARRET ([facility]) Body height 76 [in_i] 76 [in_i] GARRET ([facility]) Body mass index (BMI) [Ratio] 28.6 kg/m2 28.6 k g/m2 GARRET ([facility]) Systolic blood pressure 123 mm[Hg] 123 mm[Hg] A THENA ([facility]) Body weight 3760 [oz_av] 3760 [oz_av] GARRET ([facility]) Diastolic blood pressure 78 mm[Hg] 78 mm[Hg] GARRET ([facility]) Body height 76 [in_i] 76 [in_i] GARRET ([facility]) Body mass index (BMI) [Ratio] 28.6 kg/m2 28.6 k g/m2 GARRET ([facility]) Systolic blood pressure 123 mm[Hg] 123 mm[Hg] A THENA ([facility]) Body weight 3760 [oz_av] 3760 [oz_av] GARRET ([facility]) Diastolic blood pressure 78 mm[Hg] 78 mm[Hg] GARRET ([facility]) Body height 76 [in_i] 76 [in_i] GARRET ([facility]) Body mass index (BMI) [Ratio] 28.6 kg/m2 28.6 k g/m2 GARRET ([facility]) Systolic blood pressure 123 mm[Hg] 123 mm[Hg] A THENA ([facility]) Body weight 3760 [oz_av] 3760 [oz_av] GARRET ([facility]) Diastolic blood pressure 78 mm[Hg] 78 mm[Hg] GARRET ([facility]) Body height 76 [in_i] 76 [in_i] GARRET ([facility]) Body mass index (BMI) [Ratio] 28.6 kg/m2 28.6 k g/m2 GARRET ([facility]) Systolic blood pressure 123 mm[Hg] 123 mm[Hg] A THENA ([facility]) Body weight 3760 [oz_av] 3760 [oz_av] GARRET ([facility]) Patient Treatment Plan of Care Planned Activity Planned Date Details Description Data Source (s) Miralax GARRET ([facility]) adapalene GARRET ([facility]) Miralax GARRET ([facility]) adapalene GARRET ([facility]) Miralax GARRET ([facility]) adapalene GARRET ([facility]) adapalene GARRET ([facility])
[2021-03-08 12:41] VITALS: BP 125/80
== END 2021-03-08 12:47 | disposition home or self-care (01) ==
LOC: M ED 09:56
DX: Z48.02 Encounter for removal of sutures (principal); F41.9 Anxiety disorder, unspecified; F84.0 Autistic disorder

== ENCOUNTER 2021-04-18 09:46 | Emergency (ER) | payer MEDICAID ==
[~2021-04-18] VITALS: Ht 182.9 cm; Wt 133.2 kg
[2021-04-18 10:44] VITALS: BP 134/89
[2021-04-18] MEDS ORDERED: LORazepam 2 MG/ML VIAL IM STA (11:11)
[2021-04-18] MEDS ORDERED: OLANZapine INTRAMUSCULAR 10MG VIAL IM ONE (11:15)
[2021-04-18 12:13] LABS: HEMATOCRIT 42.6 % (42.0-52.0); HEMOGLOBIN 14.3 g/dl (13.5-17.5); MEAN CORPUSCULAR HEMOGLOBIN 29.2 pg (27.0-33.0); MEAN CORPUSCULAR HGB CONC 33.6 g/dl (32.0-36.5); MEAN CORPUSCULAR VOLUME 87.1 fl (80.0-96.0); PLATELET COUNT, AUTOMATED 260 10^3/uL (150-450); RED BLOOD COUNT 4.89 10^6/uL (4.30-6.10); WHITE BLOOD COUNT 14.4 10^3/uL (4.0-10.0)
[2021-04-18 12:56] LABS: ACETAMINOPHEN LEVEL < 2.0 UG/ML (10.0-30.0); ALBUMIN 3.6 GM/DL (3.2-5.2); ALT/SGPT 35 U/L (12-78); BILIRUBIN,DIRECT 0.1 MG/DL (0.0-0.2); BILIRUBIN,TOTAL 0.3 MG/DL (0.2-1.0); BLOOD UREA NITROGEN 14 MG/DL (7-18); CALCIUM LEVEL 9.3 MG/DL (8.5-10.1); CARBON DIOXIDE LEVEL 28 MEQ/L (21-32); CHLORIDE LEVEL 107 MEQ/L (98-107); ETHYL ALCOHOL (ETHANOL) < 0.003 % (0.000-0.010); GLOMERULAR FILTRATION RATE > 60.0 (>60); GLUCOSE, FASTING 85 MG/DL (70-100); SALICYLATE LEVEL < 1.7 MG/DL (5.0-30.0); SODIUM LEVEL 139 MEQ/L (136-145); TOTAL PROTEIN 7.1 GM/DL (6.4-8.2)
== END 2021-04-18 14:02 | disposition home or self-care (01) ==
LOC: M ED 09:46
DX: F43.0 Acute stress reaction (principal); R45.850 Homicidal ideations; F84.0 Autistic disorder; Z88.1 Allergy status to other antibiotic agents; Z88.7 Allergy status to serum and vaccine; Z91.048 Other nonmedicinal substance allergy status
CPT/HCPCS: 80048; 80076; 80143; 82077; 84443; 85027; 96372; 99285; J2060

== ENCOUNTER → 2021-05-05 | Outpatient (CLI) | payer MEDICAID | LOC: M LAB 09:56 | PROVIDERS: ATTEND Physician Assistant | DX: Z01.818 Encounter for other preprocedural examination (principal); Z79.899 Other long term (current) drug therapy ==

== ENCOUNTER 2021-05-13 09:17 | Day surgery (SDC) | payer MEDICAID ==
[~2021-05-13] VITALS: Ht 190.5 cm; Wt 140.6 kg
[~2021-05-13 09:17] MED LIST changes: -HM I1TAB PO; +IBUP-1452 PO; +LR 1,000 ML IV ONE
[2021-05-13] MEDS ORDERED: ONDANSETRON 4MG/2ML VIAL As Ordered ONE (10:10)
[2021-05-13] MEDS ORDERED: fentaNYL 100 MCG/2 ML INJECTION (J3010) As Ordered ONE (10:10)
[2021-05-13] MEDS ORDERED: dexameTHASONE 4 MG/ML 1ML VIAL (J1100 PER 1MG) As Ordered ONE (10:10)
[2021-05-13] MEDS ORDERED: KETOROLAC 60MG 2ML VIAL As Ordered ONE (10:10)
[2021-05-13] MEDS ORDERED: LIDOCAINE 2% 100MG/5ML SDV (FOR ANES.) As Ordered ONE (10:10)
[2021-05-13] MEDS ORDERED: propofoL 200 MG/20 ML VIAL As Ordered ONE (10:10)
[2021-05-13] MEDS ORDERED: LIDOCAINE W/EPINEPHRINE 1% 20ML VIAL As Ordered ONE (10:39)
[2021-05-13] MEDS ORDERED: GLYCOPYRROLATE INJ 0.2 MG/ML 2 ML VIAL As Ordered ONE (10:57)
[2021-05-13] MEDS ORDERED: LR 1,000 ML IV SCH ×2 (11:50)
[2021-05-13] MEDS ORDERED: fentaNYL 100 MCG/2 ML INJECTION (J3010) IV PRN (11:50)
[2021-05-13] MEDS ORDERED: ONDANSETRON 4MG/2ML VIAL IV PRN (11:50)
[2021-05-13 12:35] VITALS: BP 135/73
== END 2021-05-13 12:55 | disposition home or self-care (01) ==
LOC: M SDC 09:17
PROVIDERS: ATTEND Dentist Oral and Maxillofacial Surgery
DX: K02.9 Dental caries, unspecified (principal); F84.0 Autistic disorder; F41.9 Anxiety disorder, unspecified; G40.909 Epilepsy, unspecified, not intractable, without status epilepticus; L70.0 Acne vulgaris; Z79.899 Other long term (current) drug therapy; K59.09 Other constipation; M54.50 Low back pain, unspecified; Z88.7 Allergy status to serum and vaccine; Z88.1 Allergy status to other antibiotic agents; Z88.8 Allergy status to other drugs, medicaments and biological substances
CPT/HCPCS: 88300; D7210; D9223; J1100; J1885; J2405; J3010

== ENCOUNTER 2021-08-17 19:08 | Emergency (ER) | payer MEDICAID ==
[~2021-08-17] VITALS: Ht 190.5 cm; Wt 188.0 kg
[~2021-08-17 19:08] MED LIST changes: -LR 1,000 ML IV ONE
[2021-08-17 19:42] VITALS: BP 125/68
[2021-08-17 19:47] LABS: HEMATOCRIT 45.8 % (42.0-52.0); HEMOGLOBIN 15.7 g/dl (13.5-17.5); MEAN CORPUSCULAR HEMOGLOBIN 29.1 pg (27.0-33.0); MEAN CORPUSCULAR HGB CONC 34.3 g/dl (32.0-36.5); PLATELET COUNT, AUTOMATED 313 10^3/uL (150-450); RED BLOOD COUNT 5.39 10^6/uL (4.30-6.10); WHITE BLOOD COUNT 8.6 10^3/uL (4.0-10.0)
[2021-08-17] MEDS ORDERED: LORazepam 2 MG/ML VIAL IM STA (20:01)
[2021-08-17] MEDS ORDERED: OLANZapine INTRAMUSCULAR 10MG VIAL IM ONE (20:05)
[2021-08-17 20:25] LABS: ACETAMINOPHEN LEVEL < 2.0 UG/ML (10.0-30.0); ALBUMIN 4.1 GM/DL (3.2-5.2); ALT/SGPT 42 U/L (12-78); BILIRUBIN,DIRECT 0.1 MG/DL (0.0-0.2); BILIRUBIN,TOTAL 0.3 MG/DL (0.2-1.0); BLOOD UREA NITROGEN 10 MG/DL (7-18); CALCIUM LEVEL 9.7 MG/DL (8.5-10.1); CARBON DIOXIDE LEVEL 27 MEQ/L (21-32); CHLORIDE LEVEL 109 MEQ/L (98-107); CREATININE FOR GFR 1.07 MG/DL (0.70-1.30); ETHYL ALCOHOL (ETHANOL) < 0.003 % (0.000-0.010); GLOMERULAR FILTRATION RATE > 60.0 (>60); GLUCOSE, FASTING 99 MG/DL (70-100); POTASSIUM SERUM 4.5 MEQ/L (3.5-5.1); SALICYLATE LEVEL < 1.7 MG/DL (5.0-30.0); SODIUM LEVEL 142 MEQ/L (136-145); TOTAL PROTEIN 7.9 GM/DL (6.4-8.2)
[2021-08-17 21:32] LABS: AMPHETAMINES LEVEL URINE NEGATIVE (NEGATIVE); BARBITURATES URINE NEGATIVE (NEGATIVE); BENZODIAZEPINES URINE NEGATIVE (NEGATIVE); CANNABINOIDS URINE NEGATIVE (NEGATIVE); COCAINE METABOLITE URINE NEGATIVE (NEGATIVE); METHADONE URINE NEGATIVE (NEGATIVE); OPIATES URINE NEGATIVE (NEGATIVE); PHENCYCLIDINE URINE NEGATIVE (NEGATIVE)
[2021-08-18] MEDS ORDERED: ATIV2TAB PO (18:32)
== END 2021-08-17 21:36 | disposition home or self-care (01) ==
LOC: M ED 19:08
DX: F43.0 Acute stress reaction (principal); R45.850 Homicidal ideations; M54.50 Low back pain, unspecified; G47.33 Obstructive sleep apnea (adult) (pediatric); J30.1 Allergic rhinitis due to pollen; Z88.7 Allergy status to serum and vaccine
CPT/HCPCS: 36415; 80048; 80076; 80143; 80307; 82077; 84443; 85027; 96372; 99284; J2060

== ENCOUNTER 2021-08-18 11:13 | Emergency (ER) | payer MEDICAID ==
[2021-08-18] MEDS ORDERED: LORazepam 1 MG TAB PO STA (11:22)
[2021-08-18 14:06] LABS: ACETAMINOPHEN LEVEL < 2.0 UG/ML (10.0-30.0); ALT/SGPT 42 U/L (12-78); BILIRUBIN,DIRECT 0.1 MG/DL (0.0-0.2); BILIRUBIN,TOTAL 0.6 MG/DL (0.2-1.0); BLOOD UREA NITROGEN 9 MG/DL (7-18); CALCIUM LEVEL 9.6 MG/DL (8.5-10.1); CARBON DIOXIDE LEVEL 22 MEQ/L (21-32); CHLORIDE LEVEL 109 MEQ/L (98-107); CREATININE FOR GFR 0.94 MG/DL (0.70-1.30); ETHYL ALCOHOL (ETHANOL) < 0.003 % (0.000-0.010); GLOMERULAR FILTRATION RATE > 60.0 (>60); GLUCOSE, FASTING 85 MG/DL (70-100); POTASSIUM SERUM 4.9 MEQ/L (3.5-5.1); SALICYLATE LEVEL < 1.7 MG/DL (5.0-30.0); SODIUM LEVEL 141 MEQ/L (136-145); TOTAL PROTEIN 7.5 GM/DL (6.4-8.2)
[2021-08-18 15:13] LABS: HEMATOCRIT 49.3 % (42.0-52.0); HEMOGLOBIN 16.4 g/dl (13.5-17.5); MEAN CORPUSCULAR HEMOGLOBIN 29.1 pg (27.0-33.0); MEAN CORPUSCULAR HGB CONC 33.3 g/dl (32.0-36.5); MEAN CORPUSCULAR VOLUME 87.6 fl (80.0-96.0); PLATELET COUNT, AUTOMATED 261 10^3/uL (150-450); RED BLOOD COUNT 5.63 10^6/uL (4.30-6.10); WHITE BLOOD COUNT 10.9 10^3/uL (4.0-10.0)
[2021-08-18] MEDS ORDERED: ATIV2TAB PO (18:32)
[2021-08-18 19:09] VITALS: BP 133/72
== END 2021-08-18 19:08 | disposition home or self-care (01) ==
LOC: M ED 11:13
DX: Z04.6 Encounter for general psychiatric examination, requested by authority (principal); R45.851 Suicidal ideations

== ENCOUNTER → 2021-12-13 | Outpatient (CLI) | payer MEDICAID ==
[~2021-12-13] MED LIST changes: +ATIV2TAB PO
[2021-12-13 17:13] LABS: BASO % 0.4 % (0.0-1.0); EOS # 0.1 10^3/uL (0.0-0.5); EOS % 1.2 % (0.0-3.0); HEMATOCRIT 47.6 % (42.0-52.0); HEMOGLOBIN 15.7 g/dl (13.5-17.5); LYMPH # 2.4 10^3/uL (1.5-5.0); LYMPH % 34.4 % (24.0-44.0); MEAN CORPUSCULAR HEMOGLOBIN 29.1 pg (27.0-33.0); MEAN CORPUSCULAR VOLUME 88.1 fl (80.0-96.0); MONO # 0.6 10^3/uL (0.0-0.8); MONO % 8.7 % (2.0-8.0); NEUTROPHILS # 3.8 10^3/uL (1.5-8.5); PLATELET COUNT, AUTOMATED 275 10^3/uL (150-450); WHITE BLOOD COUNT 6.9 10^3/uL (4.0-10.0)
[2021-12-13 17:21] LABS: HEMOGLOBIN A1c 5.1 %
[2021-12-13 17:38] LABS: ALBUMIN 4.1 GM/DL (3.2-5.2); ALT/SGPT 36 U/L (12-78); BILIRUBIN,TOTAL 0.4 MG/DL (0.2-1.0); BLOOD UREA NITROGEN 11 MG/DL (7-18); CALCIUM LEVEL 9.4 MG/DL (8.5-10.1); CARBON DIOXIDE LEVEL 26 MEQ/L (21-32); CHLORIDE LEVEL 107 MEQ/L (98-107); CHOLESTEROL LEVEL 174 MG/DL (<200); CHOLESTEROL RISK RATIO 4.578 (<5); CREATININE FOR GFR 1.13 MG/DL (0.70-1.30); GLOMERULAR FILTRATION RATE > 60.0 (>60); GLUCOSE, FASTING 84 MG/DL (70-100); HDL CHOLESTEROL 38 MG/DL (>40); LDL CHOLESTEROL 84 MG/DL (<100); NON-HDL-C 136 MG/DL; POTASSIUM SERUM 4.1 MEQ/L (3.5-5.1); SODIUM LEVEL 138 MEQ/L (136-145); TOTAL PROTEIN 7.7 GM/DL (6.4-8.2); TRIGLYCERIDES LEVEL 260 MG/DL (<150)
== END ==
LOC: M WUC 13:00
PROVIDERS: ATTEND Psychiatry & Neurology Psychiatry
DX: Z79.899 Other long term (current) drug therapy (principal)

== ENCOUNTER 2022-02-13 10:39 | Emergency (ER) | payer MEDICAID ==
[~2022-02-13] VITALS: Ht 190.5 cm; Wt 142.8 kg
[2022-02-13 15:30] VITALS: BP 131/78
== END 2022-02-13 16:55 | disposition home or self-care (01) ==
LOC: M ED 10:39
DX: F43.0 Acute stress reaction (principal); F79 Unspecified intellectual disabilities; G40.89 Other seizures; F84.0 Autistic disorder; Z88.1 Allergy status to other antibiotic agents; Z88.7 Allergy status to serum and vaccine; Z88.8 Allergy status to other drugs, medicaments and biological substances; Z91.048 Other nonmedicinal substance allergy status

== ENCOUNTER → 2022-09-27 | Outpatient (CLI) | payer MEDICAID ==
[~2022-09-27] MED LIST changes: -IBUP-1452 PO; +IBUP-1621 PO
[2022-09-27 13:19] LABS: HEMATOCRIT 45.2 % (42.0-52.0); HEMOGLOBIN 14.9 g/dl (13.5-17.5); MEAN CORPUSCULAR HEMOGLOBIN 28.5 pg (27.0-33.0); MEAN CORPUSCULAR VOLUME 86.6 fl (80.0-96.0); PLATELET COUNT, AUTOMATED 225 10^3/uL (150-450); RED BLOOD COUNT 5.22 10^6/uL (4.30-6.10); WHITE BLOOD COUNT 5.8 10^3/uL (4.0-10.0)
[2022-09-27 13:43] LABS: HEMOGLOBIN A1c 5.1 % (4.0-6.0)
[2022-09-27 13:53] LABS: ALBUMIN 3.9 G/DL (3.2-5.2); ALKALINE PHOSPHATASE 75 U/L (46-116); ALT/SGPT 35 U/L (7.0-40); AST/SGOT 32 U/L (<34); BILIRUBIN,TOTAL 0.3 MG/DL (0.3-1.2); BLOOD UREA NITROGEN 13 MG/DL (9-23); CALCIUM LEVEL 8.5 MG/DL (8.5-10.1); CARBON DIOXIDE LEVEL 28 MMOL/L (20-31); CHLORIDE LEVEL 102 MMOL/L (98-107); CHOLESTEROL LEVEL 156 MG/DL (<200); CREATININE FOR GFR 1.01 MG/DL (0.70-1.30); GLOMERULAR FILTRATION RATE > 60.0 (>60); GLUCOSE, FASTING 74 MG/DL (60-100); HDL CHOLESTEROL 34.6 MG/DL (>40); LDL CHOLESTEROL 83.8 MG/DL (<100); NON-HDL-C 121.4 MG/DL; POTASSIUM SERUM 4.3 MMOL/L (3.5-5.1); SODIUM LEVEL 139 MMOL/L (136-145); TRIGLYCERIDES LEVEL 188 MG/DL (<150)
[2022-09-27 13:55] LABS: THYROID STIMULATING HORMONE 1.711 uIU/ML (0.55-4.78)
== END ==
LOC: M WUC 08:52
PROVIDERS: ATTEND Physician Assistant
DX: R63.5 Abnormal weight gain (principal); Z13.1 Encounter for screening for diabetes mellitus; Z13.220 Encounter for screening for lipoid disorders; Z13.29 Encounter for screening for other suspected endocrine disorder; K59.09 Other constipation; F84.0 Autistic disorder; R73.01 Impaired fasting glucose

== ENCOUNTER 2023-09-18 11:01 | Emergency (ER) | payer MEDICAID ==
[~2023-09-18 11:01] MED LIST changes: -ADAP1GEL7 EX; +ADAP45GE EX
[2023-09-18 12:06] LABS: HEMATOCRIT 43.4 % (42.0-52.0); HEMOGLOBIN 14.9 g/dl (13.5-17.5); MEAN CORPUSCULAR HEMOGLOBIN 28.8 pg (27.0-33.0); MEAN CORPUSCULAR HGB CONC 34.3 g/dl (32.0-36.5); MEAN CORPUSCULAR VOLUME 83.8 fl (80.0-96.0); PLATELET COUNT, AUTOMATED 243 10^3/uL (150-450); RED BLOOD COUNT 5.18 10^6/uL (4.30-6.10); WHITE BLOOD COUNT 5.4 10^3/uL (4.0-10.0)
[2023-09-18 12:33] LABS: ETHYL ALCOHOL (ETHANOL) < 0.003 % (0.000-0.010)
[2023-09-18 12:35] LABS: ALBUMIN 3.8 G/DL (3.2-5.2); ALKALINE PHOSPHATASE 82 U/L (46-116); ALT/SGPT 48 U/L (7.0-40); AST/SGOT 27 U/L (<34); BILIRUBIN,DIRECT 0.2 MG/DL (<0.4); BILIRUBIN,TOTAL 0.5 MG/DL (0.3-1.2); BLOOD UREA NITROGEN 13 MG/DL (9-23); CALCIUM LEVEL 9.4 MG/DL (8.5-10.1); CARBON DIOXIDE LEVEL 26 MMOL/L (20-31); CHLORIDE LEVEL 107 MMOL/L (98-107); CREATININE FOR GFR 1.14 MG/DL (0.70-1.30); GLOMERULAR FILTRATION RATE > 60.0 (>60); GLUCOSE, FASTING 130 MG/DL (60-100); POTASSIUM SERUM 4.2 MMOL/L (3.5-5.1); SALICYLATE LEVEL < 3.0 MG/DL (<30); SODIUM LEVEL 140 MMOL/L (136-145); TOTAL PROTEIN 7.3 G/DL (5.7-8.2)
[2023-09-18 12:36] LABS: THYROID STIMULATING HORMONE 1.663 uIU/ML (0.55-4.78)
[2023-09-18 13:59] VITALS: BP 123/77; TEMP 98.3; O2SAT 98
== END 2023-09-18 15:07 | disposition home or self-care (01) ==
LOC: M ED 11:01
DX: F43.0 Acute stress reaction (principal); F79 Unspecified intellectual disabilities; F84.0 Autistic disorder; Z88.1 Allergy status to other antibiotic agents; Z88.7 Allergy status to serum and vaccine; Z88.8 Allergy status to other drugs, medicaments and biological substances; Z91.048 Other nonmedicinal substance allergy status; Z79.1 Long term (current) use of non-steroidal anti-inflammatories (NSAID); Z79.899 Other long term (current) drug therapy

== ENCOUNTER → 2024-05-26 | Outpatient (CLI) | payer MEDICAID ==
[2024-05-26 11:10] LABS: BASO % 0.7 % (0.0-1.0); EOS # 0.1 10^3/uL (0.0-0.5); EOS % 1.5 % (0.0-3.0); HEMATOCRIT 44.6 % (42.0-52.0); LYMPH # 2.2 10^3/uL (1.5-5.0); LYMPH % 35.6 % (24.0-44.0); MEAN CORPUSCULAR HGB CONC 33.6 g/dl (32.0-36.5); MEAN CORPUSCULAR VOLUME 86.1 fl (80.0-96.0); MONO # 0.5 10^3/uL (0.0-0.8); MONO % 7.7 % (2.0-8.0); NEUTROPHILS # 3.3 10^3/uL (1.5-8.5); NEUTROPHILS % 54.2 % (36.0-66.0); PLATELET COUNT, AUTOMATED 233 10^3/uL (150-450); RED BLOOD COUNT 5.18 10^6/uL (4.30-6.10); WHITE BLOOD COUNT 6.1 10^3/uL (4.0-10.0)
[2024-05-26 11:24] LABS: HEMOGLOBIN A1c 5.2 % (4.0-6.0)
[2024-05-26 11:53] LABS: ALBUMIN 3.5 G/DL (3.2-5.2); ALKALINE PHOSPHATASE 68 U/L (40-129); ALT/SGPT 37 U/L (7.0-40); AST/SGOT 22 U/L (<34); BILIRUBIN,TOTAL 0.4 MG/DL (0.3-1.2); BLOOD UREA NITROGEN 12 MG/DL (9-23); CALCIUM LEVEL 8.8 MG/DL (8.5-10.1); CARBON DIOXIDE LEVEL 26 MMOL/L (20-31); CHLORIDE LEVEL 108 MMOL/L (98-107); CHOLESTEROL LEVEL 175 MG/DL (<200); CHOLESTEROL RISK RATIO 5.31 (<5); CREATININE FOR GFR 0.98 MG/DL (0.70-1.30); GLOMERULAR FILTRATION RATE > 60.0 (>60); GLUCOSE, FASTING 74 MG/DL (60-100); HDL CHOLESTEROL 32.9 MG/DL (>40); LDL CHOLESTEROL 98.3 MG/DL (<100); NON-HDL-C 142.1 MG/DL; POTASSIUM SERUM 4.5 MMOL/L (3.5-5.1); SODIUM LEVEL 142 MMOL/L (136-145); TRIGLYCERIDES LEVEL 219 MG/DL (<150)
[2024-05-26 11:54] LABS: PROLACTIN 48.36 NG/ML (2.1-17.7)
== END ==
LOC: M WUC 08:36
PROVIDERS: ATTEND Physician Assistant
DX: Z79.899 Other long term (current) drug therapy (principal)